=== PATIENT | male | born 1955 | race Caucasian/White ===

== ENCOUNTER 2018-03-02 13:43 | Outpatient (CLI) | payer MEDICARE, MEDICAID, SELFPAY ==
--- NOTE | 2018-03-02 14:06 | DI.RAD_ITS ---
SYMPTOMS/DIAGNOSIS: PEDAL EDEMA PA AND LATERAL CHEST: The cardiac size is at the upper limits of normal and unchanged from 10/21/15. The lungs are clear. No pleural effusion seen. CONCLUSION: No evidence of acute change.
[2018-03-02 14:47] LABS: BUN 19 mg/dL (7-18); CREATININE 0.95 mg/dL (0.70-1.30); Chloride 104 mmol/L (98-107); NT-proBNP 54 pg/mL; Potassium 4.1 mmol/L (3.5-5.1); Sodium 142 mmol/L (136-145)
[2018-03-02 14:49] LABS: HCO3 29 mmol/L (22-28); pCO2 44 mmHg (34-47); pH 7.42 (7.35-7.45); pO2 59 mmHg (83-108); sO2 92 % (94-98); tCO2 25 mmol/L (22-29)
[2018-03-02 14:51] LABS: FIO2 R/A %; Site Left Radial
== END 2018-03-02 14:03 ==
PROVIDERS: PCP General Practice; Visit Provider General Practice
DX: R60.0 Localized edema (principal); J44.9 Chronic obstructive pulmonary disease, unspecified; R06.02 Shortness of breath; I34.1 Nonrheumatic mitral (valve) prolapse; Z79.01 Long term (current) use of anticoagulants
CPT/HCPCS: 36415; 80051; 82805; 84520; 36600; 71046; 82565; 83880; 93005; 93010

== ENCOUNTER → 2018-06-19 09:35 | Outpatient (BNVA) | payer MEDICARE, MEDICAID, SELFPAY | PROVIDERS: PCP General Practice; Referring Provider General Practice; Visit Provider Surgery | DX: I77.1 Stricture of artery (principal); L97.319 Non-pressure chronic ulcer of right ankle with unspecified severity; J44.9 Chronic obstructive pulmonary disease, unspecified; F17.210 Nicotine dependence, cigarettes, uncomplicated; I10 Essential (primary) hypertension | CPT/HCPCS: 99213 ==

== ENCOUNTER 2018-06-26 01:53 | Outpatient (CLI) | payer MEDICARE, MEDICAID, SELFPAY ==
--- NOTE | 2018-06-26 09:20 | DI.CT_ITS ---
SYMPTOMS/DIAGNOSIS: SMOKER, PERIPHERAL ARTERY DISEASE, HYPERTENSION, I73.9, NONHEALING LEFT AND RIGHT FOOT WOUNDS CT ANGIOGRAPHY OF THE LOWER EXTREMITIES: There is mild atherosclerosis of the abdominal aorta, but no aneurysmal dilatation is seen. The celiac axis, superior mesenteric artery and inferior mesenteric arteries are unremarkable. No occlusion or significant stenosis is seen. The renal arteries are unremarkable without evidence of occlusion or significant stenosis. The common iliac arteries are unremarkable. No evidence of occlusion or significant stenosis. The left internal and external iliac arteries are unremarkable. No evidence of significant stenosis or occlusion. There is mild calcification in the right internal iliac artery, but no significant stenosis is seen. No stenosis is present. The right external iliac artery is unremarkable without evidence of occlusion or significant stenosis. The left femoral artery is unremarkable without evidence of occlusion or significant stenosis. There is mild calcium in the right femoral artery, but no significant stenosis or occlusion is present. The deep femoral arteries are unremarkable bilaterally. No evidence of occlusion or significant stenosis is present. The popliteal arteries are unremarkable bilaterally. No evidence of occlusion or significant stenosis is present. The right anterior tibial, peroneal and posterior tibial arteries are identified to the level of the ankle. The anterior tibial and tibialis posterior are seen into the foot. The peroneal artery is seen to the level of the ankle and not definitely further. This may be due to decreasing size or occlusion. On the left, the anterior tibial artery and the posterior tibial artery are visualized into the foot. The peroneal artery is visualized to the level of the ankle. This may be due to significant decreased size. Occlusion could not be excluded. There is patient motion artifact. The liver is grossly unremarkable, as is the pancreas. The patient is status post cholecystectomy. No biliary ductal dilatation is seen. Calcified granulomata are seen in the spleen. The adrenal glands are unremarkable. The kidneys show normal and symmetric enhancement. The urinary bladder appears intact. There is obscuration of portions of the pelvis due to the patient's bilateral total hip replacements. The bowel shows no evidence of obstruction. A normal appendix is present. The patient has bilateral total hip replacements. There is edema seen in the lateral aspect of the ankles adjacent to the lateral malleoli, left greater than right. IMPRESSION: 1. Minimal atherosclerosis as described above. 2. No significant stenosis or occlusion is identified. 3. Nonvisualization of the peroneal arteries distal to the ankle. This may be due to decreasing size versus occlusion.
[2018-06-26 10:13] LABS: BUN 22 mg/dL (7-18); CREATININE 1.04 mg/dL (0.70-1.30)
[2018-06-26] MEDS: Omnipaque 350 MG/ML 100 ML BTL IV (12:15)
[2018-06-26] MEDS: Omnipaque 350 MG/ML 50 ML BTL IV (12:16)
== END 2018-06-26 02:13 ==
PROVIDERS: Physical Therapy Assistant; PCP General Practice; Visit Provider Surgery
DX: I73.9 Peripheral vascular disease, unspecified (principal); I10 Essential (primary) hypertension; F17.200 Nicotine dependence, unspecified, uncomplicated; I70.0 Atherosclerosis of aorta
CPT/HCPCS: 36415; 75635; 84520; 82565; J3490; Q9967

== ENCOUNTER → 2018-07-03 09:36 | Outpatient (BNVA) | payer MEDICARE, MEDICAID, SELFPAY | PROVIDERS: PCP General Practice; Referring Provider General Practice; Visit Provider Surgery | DX: I73.9 Peripheral vascular disease, unspecified (principal); L97.319 Non-pressure chronic ulcer of right ankle with unspecified severity; I77.1 Stricture of artery; F17.210 Nicotine dependence, cigarettes, uncomplicated | CPT/HCPCS: 11042; 99212; 99213 ==

== ENCOUNTER → 2018-07-24 09:30 | Outpatient (BNVA) | payer MEDICARE, MEDICAID, SELFPAY | PROVIDERS: PCP General Practice; Referring Provider General Practice; Visit Provider Surgery | DX: I70.25 Atherosclerosis of native arteries of other extremities with ulceration (principal); F17.210 Nicotine dependence, cigarettes, uncomplicated; I87.2 Venous insufficiency (chronic) (peripheral); I73.9 Peripheral vascular disease, unspecified; L97.518 Non-pressure chronic ulcer of other part of right foot with other specified severity; J44.9 Chronic obstructive pulmonary disease, unspecified | CPT/HCPCS: 29580; 99212; 99214; L3260 ==

== ENCOUNTER → 2018-07-31 12:48 | Outpatient (BNVA) | payer MEDICARE, MEDICAID, SELFPAY | PROVIDERS: PCP General Practice; Referring Provider General Practice; Visit Provider Surgery | DX: L97.509 Non-pressure chronic ulcer of other part of unspecified foot with unspecified severity (principal); I70.25 Atherosclerosis of native arteries of other extremities with ulceration; I87.2 Venous insufficiency (chronic) (peripheral); F17.210 Nicotine dependence, cigarettes, uncomplicated | CPT/HCPCS: 11042; 99212 ==

== ENCOUNTER → 2018-08-07 13:28 | Outpatient (BNVA) | payer MEDICARE, MEDICAID, SELFPAY | PROVIDERS: PCP General Practice; Referring Provider General Practice; Visit Provider Physical Therapy Assistant | DX: Z51.89 Encounter for other specified aftercare; Z48.00 Encounter for change or removal of nonsurgical wound dressing | CPT/HCPCS: NC OV ==

== ENCOUNTER → 2018-08-14 11:01 | Outpatient (BNVA) | payer MEDICARE, MEDICAID, SELFPAY | PROVIDERS: PCP General Practice; Referring Provider General Practice; Visit Provider Surgery | DX: Z48.00 Encounter for change or removal of nonsurgical wound dressing (principal); L97.519 Non-pressure chronic ulcer of other part of right foot with unspecified severity; J44.9 Chronic obstructive pulmonary disease, unspecified; F17.210 Nicotine dependence, cigarettes, uncomplicated | CPT/HCPCS: 29580; 99212 ==

== ENCOUNTER → 2018-08-21 13:28 | Outpatient (BNVA) | payer MEDICARE, MEDICAID, SELFPAY | PROVIDERS: PCP General Practice; Referring Provider General Practice; Visit Provider Surgery | DX: Z48.00 Encounter for change or removal of nonsurgical wound dressing (principal); I87.2 Venous insufficiency (chronic) (peripheral); I70.25 Atherosclerosis of native arteries of other extremities with ulceration; L97.518 Non-pressure chronic ulcer of other part of right foot with other specified severity; F17.210 Nicotine dependence, cigarettes, uncomplicated | CPT/HCPCS: 29580; 99212; 99213 ==

== ENCOUNTER → 2018-08-28 09:11 | Outpatient (BNVA) | payer MEDICARE, MEDICAID, SELFPAY | PROVIDERS: PCP General Practice; Referring Provider General Practice; Visit Provider Surgery | DX: I87.2 Venous insufficiency (chronic) (peripheral) (principal); F17.210 Nicotine dependence, cigarettes, uncomplicated; I89.0 Lymphedema, not elsewhere classified; L97.211 Non-pressure chronic ulcer of right calf limited to breakdown of skin | CPT/HCPCS: 99212; 99214 ==

== ENCOUNTER → 2018-08-31 08:56 | Outpatient (BNVA) | payer MEDICARE, MEDICAID, SELFPAY | PROVIDERS: PCP General Practice; Referring Provider General Practice; Visit Provider Surgery | DX: R69 Illness, unspecified (principal) ==

== ENCOUNTER 2018-08-31 10:18 | Outpatient (CLI) | payer MEDICARE, MEDICAID, SELFPAY ==
--- NOTE | 2018-08-31 10:00 | DI.US_ITS ---
SYMPTOMS/DIAGNOSIS: RLE SWELLING AND PAIN, M79.604, M79.89 DUPLEX VENOUS ULTRASOUND RIGHT LOWER EXTREMITY: Duplex evaluation of the deep venous system was performed according to the usual protocol. The deep veins are freely compressible throughout to the level of the popliteal veins. There is normal doppler flow visible throughout and there is excellent flow augmentation with manual calf compression. CONCLUSION: No evidence of deep venous thrombosis.
[2018-08-31 11:04] LABS: Abs Immature Grans 0.01 k/cumm (0.0-0.09); Absolute Basophil Count 0.01 k/cumm (0.0-0.2); Absolute Eosinophil Count 0.11 k/cumm (0.0-0.7); Absolute Lymphocyte Count 1.83 k/cumm (1.2-3.4); Absolute Monocyte Count 0.62 k/cumm (0.11-0.7); Absolute Neutrophil Count 3.67 k/cumm (1.2-6.7); Basophils % 0.2; Eosinophils % 1.8; HCT 48.9 % (40.0-50.0); HGB 16.3 g/dL (13.5-17.5); Immature Grans % 0.2; Lymphocytes % 29.3; Mean Corp. HGB Concentration 33.3 g/dL (32.0-36.0); Mean Corpuscular Hemoglobin 33.2 pg (27.0-33.0); Mean Corpuscular Volume 99.6 fL (80-95); Mean Platelet Volume 10.8 fL (8.0-11.0); Monocytes % 9.9; Neutrophils % 58.6; Platelet Count 127 x1000/uL (130-400); RBC 4.91 m/cumm (4.50-6.00); RBC Distribution Width 13.8 % (11.8-14.1); White Blood Cell Count 6.25 k/cumm (4.4-10.8)
[2018-08-31 11:34] LABS: D-Dimer 677 ng/mlFEU (<500)
[2018-08-31 11:40] LABS: Anion Gap 8.5 mmol/L (3-11); BUN 21 mg/dL (7-18); CO2 30.5 mmol/L (21.0-32.0); CREATININE 1.07 mg/dL (0.70-1.30); Calcium 9.5 mg/dL (8.5-10.1); Chloride 103 mmol/L (98-107); Glucose 85 mg/dL (70-100); Potassium 4.2 mmol/L (3.5-5.1); Sodium 142 mmol/L (136-145)
[2018-08-31 12:00] LABS: NT-proBNP 53 pg/mL
== END 2018-08-31 10:38 ==
PROVIDERS: PCP General Practice; Visit Provider Surgery
DX: M79.604 Pain in right leg (principal); M79.89 Other specified soft tissue disorders; R22.41 Localized swelling, mass and lump, right lower limb; R06.02 Shortness of breath; L97.511 Non-pressure chronic ulcer of other part of right foot limited to breakdown of skin; Z79.01 Long term (current) use of anticoagulants; J44.9 Chronic obstructive pulmonary disease, unspecified; F17.210 Nicotine dependence, cigarettes, uncomplicated
CPT/HCPCS: 36415; 80048; 99213; 83880; 85025; 85379; 93971

== ENCOUNTER → 2018-09-04 08:57 | Outpatient (BNVA) | payer MEDICARE, MEDICAID, SELFPAY ==
[2018-09-05 07:01] LABS: Abs Immature Grans 0.01 k/cumm (0.0-0.09); Absolute Basophil Count 0.02 k/cumm (0.0-0.2); Absolute Eosinophil Count 0.12 k/cumm (0.0-0.7); Absolute Lymphocyte Count 1.79 k/cumm (1.2-3.4); Absolute Monocyte Count 0.56 k/cumm (0.11-0.7); Absolute Neutrophil Count 3.49 k/cumm (1.2-6.7); Basophils % 0.3; HCT 46.4 % (40.0-50.0); HGB 15.7 g/dL (13.5-17.5); Immature Grans % 0.2; Lymphocytes % 29.9; Mean Corp. HGB Concentration 33.8 g/dL (32.0-36.0); Mean Corpuscular Hemoglobin 33.4 pg (27.0-33.0); Mean Corpuscular Volume 98.7 fL (80-95); Mean Platelet Volume 11.4 fL (8.0-11.0); Monocytes % 9.3; Neutrophils % 58.3; Platelet Count 126 x1000/uL (130-400); RBC Distribution Width 13.7 % (11.8-14.1); White Blood Cell Count 5.99 k/cumm (4.4-10.8)
[2018-09-05 07:29] LABS: ALT 25 U/L (12-78); AST 17 U/L (15-37); Albumin 3.4 g/dL (3.4-5.0); Alkaline Phosphatase 81 U/L (46-116); Anion Gap 8.7 mmol/L (3-11); BUN 16 mg/dL (7-18); Bilirubin, Total 0.5 mg/dL (0.2-1.0); CO2 29.3 mmol/L (21.0-32.0); CREATININE 0.92 mg/dL (0.70-1.30); Calcium 9.1 mg/dL (8.5-10.1); Chloride 102 mmol/L (98-107); Glucose 94 mg/dL (70-100); NT-proBNP 70 pg/mL; Potassium 3.5 mmol/L (3.5-5.1); Sodium 140 mmol/L (136-145); Total Protein 6.9 g/dL (6.4-8.2)
== END ==
PROVIDERS: PCP General Practice; Referring Provider General Practice; Visit Provider Surgery
DX: M79.604 Pain in right leg (principal); M79.89 Other specified soft tissue disorders; R06.02 Shortness of breath
CPT/HCPCS: NC OV

== ENCOUNTER 2018-09-04 10:57 | Inpatient (IN) | payer MEDICARE, MEDICAID, SELFPAY ==
[2018-09-04 10:57] VITALS: BP 138/76; PULSE 65; RESP 20; TEMP 36.9; O2SAT 93
[2018-09-04] MEDS: Normal Saline Flush 10 ML SYR IVP ×2 (11:17→17:59)
[2018-09-04] MEDS: Normal Saline 1,000 ML 30 ML IV (11:18)
[2018-09-04] MEDS: Pantoprazole 40 MG TABCR PO (11:53)
[2018-09-04] MEDS: Enoxaparin 40 MG/0.4 ML SYR SC (11:54)
--- NOTE | 2018-09-04 13:14 | W.PM.HP.N ---
Date of service: 09/04/18 Time of Service: 13:14 Assessment and Plan (1) Cellulitis of right lower extremity without foot: Current visit: No Status: Acute This has been present since August 29 and not resolving. Initially thought this was do to some rebound swelling from having the unna boot removed on 08/28 (after having in place for 3 wks) The ulcer has healing nicely and this does nto appear to be involved. Pt has long standing venous stasis/venous insuff/lymphedema and arterial Dx of the foot/leg. Will admit pt for IV abx. He had US last which did not show any DVT. Will check flate plate for air CXR for CHF/echo for valular heart dx Mostly likely gram+ and will start on rocephin. lovenox lactulose History of Present Illness Chief Complaint: pt is here today for f/u of RLE swelling. Leg is more red and tender today Narrative: pt is here today for F/u of RLE swelling and edema. Leg is more red and tender today . He also feels SOB. no CP. at this this point I think this is more than his chronic swelling and redness and has crossed into infection and is not just lymphedema and stasis dermatitis. no fever. no n/v. no diarrhea. Will admit for IV abx. and IV lasix US was neg on 09/01. labs will be redrawn. Review of Systems Review of Systems All systems reviewed & are unremarkable except as noted in HPI and below Constitutional Comments: no fever or chills. no n/v. no diarrhea no recent abx Eyes Comments: no redness or drainage or pain. + glasses ENT Denies dysphagia Comments: dental repairs Cardiovascular Comments: hx of valular heart dx. no formal dg of chf. He is on lasix and elquis. Respiratory Comments: feels sob today no chest pain Gastrointestinal Denies abdominal pain, Denies cramping, Denies dysphagia, Denies dyspepsia, Denies heartburn, Denies diarrhea and Denies vomiting Musculoskeletal Comments: RLE more red today. 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) Anxiety (Chronic) Hearing loss (Chronic) On anticoagulant therapy (Chronic) Tobacco use disorder (Chronic) 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) BPH (benign prostatic hyperplasia) COPD (chronic obstructive pulmonary disease) Crohns disease DJD (degenerative joint disease) DVT (deep venous thrombosis) Depression Gastroesophageal reflux disease Hypercholesterolemia Osteoarthritis Surgical History Cholecystectomy (11/01/17) Colonoscopy - MAC EGD - MAC Extraction of cataract Repair of inguinal hernia Repair of umbilical hernia Tonsillectomy and adenoidectomy Total replacement of hip Social History Smoking/Tobacco Use Status: Current every day Drug use: Never Do you feel safe in your relationship?: Yes Meds Home Medications Medication Instructions Recorded Confirmed Type Eliquis 2.5 mg PO BID 02/03/16 09/04/18 History furosemide [Lasix] 40 mg PO BID 03/30/16 09/04/18 History albuterol sulfate [ProAir HFA] 2 puff INHALATION PRN PRN 10/26/17 09/04/18 History finasteride 5 mg tablet 5 mg PO HS #90 tab-cap 07/25/18 09/04/18 Rx acetaminophen 500 mg tablet 500 mg PO Q6H PRN 07/31/18 09/04/18 History tramadol 50 mg tablet 50 mg PO Q6H PRN #30 tab 07/31/18 09/04/18 Rx Allergies Allergy/AdvReac Type Severity Reaction Status Date / Time Sulfa (Sulfonamide AdvReac Intermediate Itching Verified 09/04/18 09:06 Antibiotics) Exam GI Palpation: soft Other: n o pain Skin Other: LE is red/hot /swollen/painful His pulses are never palpable. no new open sores. some serous drainage Neuro General: alert, awake, oriented x3, moves all extremities and CN's II-XI intact bilaterally Motor: muscle tone normal throughout Other: has chronic joint pain so gait is uneven at baseline Extrem General: full ROM and edema Other: red increase in calf circumference swollen weeping Results Labs : 09/04/18 13:40 09/04/18 13:40 Last Vital Signs Temp 36.9 C 09/04/18 11:23 Pulse 65 09/04/18 11:23 Resp 20 09/04/18 11:23 BP 138/76 09/04/18 11:23 Pulse Ox 93 L 09/04/18 11:23
[2018-09-04] MEDS: cefTRIAXone 2 GM/50 ML BAG IVPB (13:47)
[2018-09-04 13:52] LABS: Abs Immature Grans 0.01 k/cumm (0.0-0.09); Absolute Basophil Count 0.02 k/cumm (0.0-0.2); Absolute Eosinophil Count 0.12 k/cumm (0.0-0.7); Absolute Lymphocyte Count 1.97 k/cumm (1.2-3.4); Absolute Monocyte Count 0.58 k/cumm (0.11-0.7); Absolute Neutrophil Count 3.99 k/cumm (1.2-6.7); Basophils % 0.3; Eosinophils % 1.8; HCT 45.7 % (40.0-50.0); HGB 15.6 g/dL (13.5-17.5); Immature Grans % 0.1; Lymphocytes % 29.4; Mean Corp. HGB Concentration 34.1 g/dL (32.0-36.0); Mean Corpuscular Volume 99.6 fL (80-95); Mean Platelet Volume 11.2 fL (8.0-11.0); Monocytes % 8.7; Neutrophils % 59.7; Platelet Count 122 x1000/uL (130-400); RBC 4.59 m/cumm (4.50-6.00); RBC Distribution Width 13.7 % (11.8-14.1); White Blood Cell Count 6.69 k/cumm (4.4-10.8)
[2018-09-04 14:19] LABS: ALT 28 U/L (12-78); AST 19 U/L (15-37); Albumin 3.4 g/dL (3.4-5.0); Alkaline Phosphatase 83 U/L (46-116); Anion Gap 6.9 mmol/L (3-11); BUN 16 mg/dL (7-18); Bilirubin, Total 0.4 mg/dL (0.2-1.0); CO2 30.1 mmol/L (21.0-32.0); CREATININE 1.09 mg/dL (0.70-1.30); Calcium 9.4 mg/dL (8.5-10.1); Chloride 103 mmol/L (98-107); Glucose 106 mg/dL (70-100); Magnesium 1.8 mg/dL (1.8-2.4); NT-proBNP 74 pg/mL; Potassium 3.8 mmol/L (3.5-5.1); Sodium 140 mmol/L (136-145); Total Protein 6.9 g/dL (6.4-8.2)
[2018-09-04 14:25] LABS: C-Reactive Protein 0.75 mg/dL (0.0-0.3)
[2018-09-04 14:34] LABS: ESR 8 MM/HR (1-20)
[2018-09-04] MEDS: Furosemide 20 MG TAB 40 MG PO (15:44)
[2018-09-04 16:07] VITALS: BP 110/66; PULSE 63; RESP 18; TEMP 37.1; O2SAT 92
--- NOTE | 2018-09-04 16:58 | DI.RAD_ITS ---
SYMPTOM/DIAGNOSIS: SOB, CELLULITIS PA AND LATERAL CHEST; The lungs are free of infiltrate. There is no pleural effusion. The cardiovascular structures are intact. 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 IMPRESSION: No evidence of acute cardiopulmonary disease. RIGHT FEMUR: The patient is status post ELAINE. The prosthesis is in good position. Surrounding bone intact. Note is made of mild degenerative changes involving the knee. There is no localized bony or soft tissue abnormality.
--- NOTE | 2018-09-04 17:06 | NUR.NOTE ---
1645: BILATERAL CALF MEASUREMENTS OBTAINED AFTER ORDER ENTERED BY . TEDS HAD ALREADY BEEN ON FOR ABOUT AN HOUR WHEN MEASUREMENTS WERE OBTAINED. RIGHT CALF: 41.5 CM LEFT CALF: 40 CM Nursing Note:
--- NOTE | 2018-09-04 17:29 | DI.VRAD_ITS ---
EXAM: XR Chest, 2 Views EXAM DATE/TIME: 09/04/2018 5:03 PM CLINICAL HISTORY: 63 years old, male; Signs and symptoms; Shortness of breath TECHNIQUE: Imaging protocol: XR of the chest, 2 views. COMPARISON: CR XR CHEST 2V PA LATERAL 03/02/2018 2:06 PM FINDINGS: Lungs: Mild opacity in the bases may represent atelectasis or pneumonia. Pleural space: Unremarkable. No pleural effusion. No pneumothorax. Heart/Mediastinum: Stable cardiac silhouette Bones/joints: Stable scoliosis IMPRESSION: Mild opacity in the bases may represent atelectasis or pneumonia. Dictated and Authenticated by: Petra Whitehead MD. Ordering:DEVIN Louis MD
--- NOTE | 2018-09-04 17:39 | DI.VRAD_ITS ---
EXAM: XR Right Femur, 4 views EXAM DATE/TIME: 09/04/2018 4:41 PM CLINICAL HISTORY: 63 years old, male; Condition or disease; Other: Cellulitis TECHNIQUE: Imaging protocol: XR Right femur, 4 views COMPARISON: No relevant prior studies available. FINDINGS: Bones/joints: Right total hip replacement. No fracture. There is no evidence of malalignment or dislocation. Soft tissues: Normal. IMPRESSION: 1. Right total hip replacement. 2. No fracture. There is no evidence of malalignment or dislocation. Dictated and Authenticated by: Petra Whitehead MD. Ordering:DEVIN Louis MD
[2018-09-04] MEDS: Furosemide 40 MG/4 ML VIAL IVP (17:59)
[2018-09-04] MEDS: Lactobacillus Acidophilus CAP 1 CAP PO (19:56)
[2018-09-04] MEDS: Finasteride 5 MG TAB PO (22:13)
[2018-09-04 23:28] VITALS: BP 127/77; PULSE 68; RESP 20; TEMP 36.6; O2SAT 92
[2018-09-05 07:26] VITALS: BP 124/76; PULSE 61; RESP 18; TEMP 37; O2SAT 91
[2018-09-05] MEDS: Lactobacillus Acidophilus CAP 1 CAP PO ×3 (07:40→19:37)
[2018-09-05] MEDS: Furosemide 20 MG TAB 40 MG PO ×2 (07:40→16:45)
--- NOTE | 2018-09-05 09:05 | MERGE_ITS ---
*[facility]* *[facility]* [address] [place] [address] Date of study: 09/05/2018 Transthoracic Echocardiography M-mode, complete 2D, complete spectral Doppler, and color Doppler *STUDY CONCLUSIONS* Summary: 1. Left ventricle: The cavity size was normal. Systolic function was normal. The estimated ejection fraction was 55-60%. Findings consistent with diastolic dysfunction. There was no evidence of elevated ventricular filling pressure by Doppler parameters. 2. Mitral valve: There was moderate regurgitation. 3. Left atrium: The atrium was mildly dilated. 4. Right ventricle: The cavity size was mildly dilated. Systolic function was normal. 5. Right atrium: The atrium was mildly dilated. 6. Atrial septum: No defect or patent foramen ovale was identified. 7. Tricuspid valve: There was moderate regurgitation. 8. Pulmonary arteries: Pulmonary systolic pressure was >= 45mm Hg. 9. Inferior vena cava: Poorly visualized. *PATIENT PRESENTATION* Height: 167.6cm ((66in) ) S/D Pressure: 127 / 77 Weight: 94.3kg ((207.6lb) ) BSA: 2.13m^2 Test start time: 09:10 AM. Test stop time: 10:10 AM. CONSULTING Juancho Bacon PERFORMING Unknown PERFORMING [facility] IN HOUSE COUNSEL RT Francoise (R)(CT), [facility] ORDERING Missy Wallis REFERRING Missy Wallis *PROCEDURE DATA* Procedure information: The patient was identified by two identifiers. This study was interpreted by [facility]. Pertinent images and digital data are archived for permanent storage and are available for subsequent review. No prior study was available for comparison. Study status: Routine. Transthoracic echocardiography. M-mode, complete 2D, complete spectral Doppler, and color Doppler. A Transthoracic Echocardiogram was performed. Scanning was performed from the parasternal, apical, subcostal, and suprasternal notch acoustic windows. Images were obtained using an [id number] cardiac ultrasound machine. Image quality was adequate. Study completion: The patient tolerated the procedure well. History: PMH: Sob/hx of valvular heart disease, lower extremity edema. *CARDIAC ANATOMY* Left ventricle: The cavity size was normal. Systolic function was normal. The estimated ejection fraction was 55-60%. The tissue Doppler parameters were abnormal. Findings consistent with diastolic dysfunction. There was no evidence of elevated ventricular filling pressure by Doppler parameters. Aortic valve: [place]. Doppler: There was no stenosis. There was no regurgitation. VTI ratio of LVOT to aortic valve: 0.81. Valve area (VTI): 3.4cm^2. Indexed valve area (VTI): 1.6cm^2/m^2. Peak velocity ratio of LVOT to aortic valve: 0.72. Valve area (Vmax): 3cm^2. Indexed valve area (Vmax): 1.4cm^2/m^2. Mean velocity ratio of LVOT to aortic valve: 0.61. Valve area (Vmean): 2.5cm^2. Indexed valve area (Vmean): 1.2cm^2/m^2. Mean gradient (S): 6.3mm Hg. Peak gradient (S): 10.7mm Hg. Aorta: Aortic root: The aortic root was normal in size. Ascending aorta: The ascending aorta was normal in size. Mitral valve: Doppler: There was no evidence for stenosis. There was moderate regurgitation. Valve area by pressure half-time: 3.5cm^2. Indexed valve area by pressure half-time: 1.7cm^2/m^2. Left atrium: The atrium was mildly dilated. Atrial septum: No defect or patent foramen ovale was identified. Right ventricle: The cavity size was mildly dilated. Systolic function was normal. Pulmonic valve: Doppler: There was no evidence for stenosis. There was mild to moderate regurgitation. Peak gradient (S): 8.7mm Hg. Tricuspid valve: Doppler: There was moderate regurgitation. Pulmonary artery: Poorly visualized. Pulmonary systolic pressure was >= 45mm Hg. Right atrium: The atrium was mildly dilated. Pericardium: There was no pericardial effusion. Systemic veins: Inferior vena cava: Poorly visualized. Measurements Left ventricle Value Reference LV ID, ED, PLAX 5.5 cm 3.5 - 6.0 LV ID, ES, PLAX (H) 4.1 cm 2.1 - 4.0 LV PW thickness, ED, PLAX 1.1 cm LV end-diastolic volume, 1-p A2C 95 ml LV ejection fraction, 1-p A2C 49 % LV end-diastolic volume, 1-p A4C 115 ml LV ejection fraction, 1-p A4C 58 % LV e', lateral 0.06 m/sec LV E/e', lateral 7 LV e', medial 0.062 m/sec LV E/e', medial 7 LV e', average 0.061 m/sec LV E/e', average 7 Ventricular septum Value Reference IVS thickness, ED, PLAX 1.1 cm LVOT Value Reference LVOT ID, A-P 2.3 cm LVOT area 4.1 cm^2 LVOT peak velocity, S 1.18 m/sec LVOT mean velocity, S 0.73 m/sec LVOT VTI, S 25.9 cm LVOT peak gradient, S 5.6 mm Hg LVOT mean gradient, S 2.6 mm Hg Stroke volume (SV), LVOT DP 107 ml Stroke index (SV/bsa), LVOT DP 50 ml/m^2 Aortic valve Value Reference Aortic valve peak velocity, S 1.6 m/sec Aortic valve mean velocity, S 1.2 m/sec Aortic valve VTI, S 32.0 cm Aortic mean gradient, S 6.3 mm Hg Aortic peak gradient, S 10.7 mm Hg VTI ratio, LVOT/AV 0.81 Aortic valve area, VTI 3.4 cm^2 Velocity ratio, peak, LVOT/AV 0.72 Aortic valve area, peak velocity 3 cm^2 Velocity ratio, mean, LVOT/AV 0.61 Aortic valve area, mean velocity 2.5 cm^2 Aortic valve area/bsa, mean velocity 1.2 cm^2/m^2 Aorta Value Reference Aortic root ID, ED 3.4 cm Ascending aorta ID, A-P, S 3.2 cm Left atrium Value Reference LA ID, A-P, ES 4.4 cm LA ID/bsa, A-P 2.0 cm/m^2 <=2.2 LA area, ES, A4C (H) 27.3 cm^2 8.8 - 23.4 LA area, ES, A2C 22 cm^2 LA volume/bsa, ES, 1-p A4C 52 ml/m^2 LA volume, ES, 2-p 79 ml LA volume/bsa, ES, 2-p 37 ml/m^2 LA/aortic root ratio 1.29 Mitral valve Value Reference Mitral E-wave peak velocity 0.43 m/sec Mitral A-wave peak velocity 0.75 m/sec Mitral deceleration time 215 ms 150 - 230 Mitral pressure half-time 62 ms Mitral E/A ratio, peak 0.57 Mitral valve area, PHT, DP 3.5 cm^2 Tricuspid valve Value Reference Tricuspid regurg peak velocity 3.5 m/sec Tricuspid peak RV-RA gradient 47.7 mm Hg Right atrium Value Reference RA area, ES, A4C (H) 20.9 cm^2 8.3 - 19.5 Pulmonic valve Value Reference Pulmonic peak gradient, S 8.7 mm Hg Legend: (L) and (H) kaela values outside specified reference range. I have personally reviewed the images and have reviewed and edited the reported findings. Electronically signed by Velasquez Hugo MD 09/05/2018 14:07
[2018-09-05] MEDS: Enoxaparin 40 MG/0.4 ML SYR SC (11:16)
--- NOTE | 2018-09-05 13:15 | PGE_ITS ---
Date of Service Date of service: 09/05/18 Time of Service: 13:12 Assessment and Plan (1) Diastolic dysfunction: Current visit: Yes Status: Acute (2) Mitral regurgitation: Current visit: Yes Status: Chronic (3) Pulmonary HTN: Current visit: Yes Status: Acute (4) Cellulitis of right lower extremity without foot: Current visit: No Status: Acute cont abx results of ECHO noted. does not appear to be surgical- will resume eliquist- hx of DVT const abx and supportive care. Subjective Interval history since last seen: doing ok. redness still present swelling has gone down. no diarrhea. calf are 40cm- left. 41cm right. Right still seems very tender. defn swollen. no abscess. Would like to see redness and swelling go down more prior to d/c or change to oral abx. pt wants fo smoke. He has had DVT in past SOB is better. no thrush on tongue. does not appear to have any abscess or any lesions that require drainage. Will resume eliquis- pt has a hx of DVT. results of echo noted. Exam Const General: cooperative, healthy appearing, comfortable, no acute distress, well developed and well groomed Nutritional Appearance: average body habitus and well nourished Orientation: alert, awake and oriented x3 Other: no fever or chills. no diarrhea. no thrush. no productive cough. no dysuria. RLE still red and swollen and tender. slt better. no CP or SOB. [facility] Head: normal to inspection, normocephalic and atraumatic Ears: hearing grossly normal bilaterally and external ears normal General nose exam: external nose normal Face and sinus: normal facial exam and sinuses nontender Mouth: oral mucosae normal, lip normal, tongue normal and moist mucous membranes Teeth and gingiva: dentition normal Eyes General: appearance normal, both eyes and all related structures Conjunctivae: conjunctivae normal Sclera: sclerae normal Pupils: PERRL Neck Neck: normal visual inspection, full ROM and no JVD Chest Chest: normal inspection of the chest Resp Effort & Inspection: normal respiratory effort, able to speak in complete sentences, no cough, no nasal flaring, not tachypneic and no use of accessory muscles Auscultation: clear to auscultation bilaterally, no rales, no rhonchi and no w heezes Cardio Jugular venous pressure: no JVD Rate: regular rate Rhythm: regular rhythm GI Inspection: normal to inspection, no edema and non-distended Palpation: soft, no masses, nontender and No ascites Auscultation: normal bowel sounds Skin General skin exam: no rashes or lesions noted Trauma: no lacerations or abrasions Other: intact. Ulcer on R lateral malleolus is healed. no serous drainage today. still red/tender/swollen. He has chronic venous statsis and lymphedema at baseline. Pulses are not palpable at baseline. Neuro General: alert, oriented x3, oriented, gait normal, moves all extremities, no focal motor deficits and CN's II-XI intact bilaterally Cognition: normal cognition Speech: speech normal Gait: normal gait Motor: muscle tone normal throughout Extrem General: normal to inspection, full ROM, no clubbing, cyanosis or edema, edema and pedal edema Other: see above Psych Appearance: grossly normal and well kempt Mental Status: mental status grossly normal Speech and Movement: speech and movement normal Affect: normal affect Objective Objective Clinical Data: Abnormal lab results 09/04/18 09/04/18 09/04/18 Range/Units 13:40 13:40 13:40 MCV 99.6 H (80-95) fL MCH 34.0 H (27.0-33.0) pg Plt Count 122 L (130-400) x1000/uL MPV 11.2 H (8.0-11.0) fL Glucose 106 H (70-100) mg/dL C-Reactive Protein 0.75 H (0.0-0.3) mg/dL Vital Signs Temperature 37.0 C 09/05/18 07:26 Temperature Source Tympanic 09/05/18 07:26 Pulse 61 09/05/18 07:26 Pulse Rhythm Regular 09/05/18 03:46 Respiratory Rate 18 09/05/18 07:26 Respiratory Effort Non-Labored 09/05/18 03:46 Respiratory Depth Normal 09/05/18 03:46 Respiratory Pattern Normal 09/05/18 03:46 Blood Pressure 124/76 09/05/18 07:26 Pulse Oximetry 91 L 09/05/18 07:26 Oxygen Delivery Method Room Air 09/05/18 07:26 Oxygen Flow Rate 0 09/05/18 07:26 Pain Level 0 09/04/18 16:07 Intake & Output 09/04/18 09/05/18 09/05/18 23:59 11:59 23:59 Intake Total 371 / 371 360 / 360 Output Total 3200 / 3200 1000 / 1000 Balance -2829 / -2829 -640 / -640 Weight 93.8 kg Intake: IV 131 / 131 Oral 240 / 240 360 / 360 Output: Urine 3200 / 3200 1000 / 1000 Other: Urine Color Yellow Yellow Urine Appearance Clear Clear Urine Odor None Comment urinal emptied. Voiding Methods Toilet Urinal Laboratory Results WBC 6.69 k/cumm (4.4-10.8) 09/04/18 13:40 RBC 4.59 m/cumm (4.50-6.00) 09/04/18 13:40 Hgb 15.6 g/dL (13.5-17.5) 09/04/18 13:40 Hct 45.7 % (40.0-50.0) 09/04/18 13:40 MCV 99.6 fL (80-95) H 09/04/18 13:40 MCH 34.0 pg (27.0-33.0) H 09/04/18 13:40 MCHC 34.1 g/dL (32.0-36.0) 09/04/18 13:40 RDW 13.7 % (11.8-14.1) 09/04/18 13:40 Plt Count 122 x1000/uL (130-400) L 09/04/18 13:40 MPV 11.2 fL (8.0-11.0) H 09/04/18 13:40 Immature Gran % 0.1 09/04/18 13:40 Neutrophils % 59.7 09/04/18 13:40 Lymphocytes % 29.4 09/04/18 13:40 Monocytes % 8.7 09/04/18 13:40 Eosinophils % 1.8 09/04/18 13:40 Basophils % 0.3 09/04/18 13:40 Absolute Neutrophils 3.99 k/cumm (1.2-6.7) 09/04/18 13:40 Absolute Lymphocytes 1.97 k/cumm (1.2-3.4) 09/04/18 13:40 Absolute Monocytes 0.58 k/cumm (0.11-0.7) 09/04/18 13:40 Absolute Eosinophils 0.12 k/cumm (0.0-0.7) 09/04/18 13:40 Absolute Basophils 0.02 k/cumm (0.0-0.2) 09/04/18 13:40 ESR 8 MM/HR (1-20) 09/04/18 13:40 Sodium 140 mmol/L (136-145) 09/04/18 13:40 Potassium 3.8 mmol/L (3.5-5.1) 09/04/18 13:40 Chloride 103 mmol/L (98-107) 09/04/18 13:40 Carbon Dioxide 30.1 mmol/L (21.0-32.0) 09/04/18 13:40 Anion Gap 6.9 mmol/L (3-11) 09/04/18 13:40 BUN 16 mg/dL (7-18) 09/04/18 13:40 Creatinine 1.09 mg/dL (0.70-1.30) 09/04/18 13:40 Estimated GFR/1.73 m2 >= 60.00 (mL/min/1.73m2) 09/04/18 13:40 Glucose 106 mg/dL (70-100) H 09/04/18 13:40 Calcium 9.4 mg/dL (8.5-10.1) 09/04/18 13:40 Magnesium 1.8 mg/dL (1.8-2.4) 09/04/18 13:40 Total Bilirubin 0.4 mg/dL (0.2-1.0) 09/04/18 13:40 AST 19 U/L (15-37) 09/04/18 13:40 ALT 28 U/L (12-78) 09/04/18 13:40 Alkaline Phosphatase 83 U/L (46-116) 09/04/18 13:40 C-Reactive Protein 0.75 mg/dL (0.0-0.3) H 09/04/18 13:40 NT-Pro-B Natriuret Pep 74 pg/mL (-299) 09/04/18 13:40 Total Protein 6.9 g/dL (6.4-8.2) 09/04/18 13:40 Albumin 3.4 g/dL (3.4-5.0) 09/04/18 13:40
--- NOTE | 2018-09-05 14:39 | CHAPLAIN ---
Kody was sitting up in his chair watching tv when I visited. He told me that he is feeling ok, but was told to come in because his legs are swollen. He doesn't have any family members who will be visiting, he told me. Isra and I remember each other from when his , Brigitte, in the ICU a couple of years ago. At that time, the only other family member was Brigitte's daughter.
[2018-09-05] MEDS: cefTRIAXone 2 GM/50 ML BAG IVPB (14:55)
--- NOTE | 2018-09-05 15:22 | PHARADMIT ---
Admission Pharmacy Clinical Review cellulitis Code Status Full Code Current Weight 93.8 kg Renally Cleared and Narrow Therapeutic Index Meds Crcl ~86.9 mL/min using adjusted body weight current meds okay QTc Value / Action Taken n/a BP Control, Fever BP 124/76 Electrolytes reviewed within normal limits DVT Prophylaxis enoxaparin, apixaban restarts tonight and enoxaparin to discontinue after tomorrows dose Opiate Usage / Scheduled Bowel Regimen Ordered prn/no Plt/SCr for Heparin / Enoxaparin plt 122 SCr 1.09 INR for Warfarin n/a H/H stable, WBC/Bands h/h 15.6/45.7 wbc 6.69 Antibiotic appropriateness ceftriaxone Cultures and Sensitivities none Surgical ABX d/c within 24 hr n/a DM control / Insulin Dosing Bg 106 none Heart Failure (Check EF%) (CHAVEZ's, B-Block, Diuretics) furosemide IV to PO Switch n/a Home Meds 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
[2018-09-05 15:34] VITALS: BP 114/73; PULSE 60; RESP 18; TEMP 36.7; O2SAT 97
[2018-09-05 18:04] LABS: CRP, High Sensitivity 6.64 mg/L
[2018-09-05] MEDS: Apixaban 2.5 MG TAB PO (19:37)
--- NOTE | 2018-09-05 21:01 | PDOC.CMIN ---
- If Service Date Differs Date of service: 09/05/18 Time of Service: 21:02 Care Management Initial Assess REASON FOR HOSPITALIZATION:: Cellulitis PAST MEDICAL HISTORY/PAST SURGICAL HISTORY:: Deep vein thrombosis x2, Osteoarthritis, Hematuria, Tobacco abuse, COPD, Mitral valve prolapse, Chronic low back pain, Depression, Crohn's disease, (L) total hip arthroplasty, (R) total hip arthroplasty, Cystoscopy, Cataract surgery, Tonsillectomy, Adenoidectomy, Umbilical hernia repair, Bilateral inguinal hernia repairs PREVIOUS FUNCTIONAL STATUS/SOCIAL/FAMILY SUPPORTS:: Isra lives in his own apartment in [place], [place]. He is diabled, he lost his spouse about 4 years ago.He does have a sister that lives out of the area. [facility], where they provide care to his legs for chronic lymphadema in both le?s. He uses [facility] for transportation. CURRENT FUNCTIONAL STATUS:: Isra is alert, he ask when he is able to go home. Isra is ambulating in the rooms and quiñones often. He is receiving IV antibiotics. CM did review with surgical provider nikki to be determine, he may need extended antibiotics pending cultures. ADVANCE DIRECTIVES:: On file. Has patient been provided with information about the portal?: Yes Did the patient sign up for the portal?: No (already enrolled) CODE STATUS:: Full Code INSURANCE COVERAGE / FINANCIAL ISSUES:: Medicare and Medicaid CURRENT HOME/COMMUNITY SERVICES/EQUIPMENT:: Adult day services PRIMARY CARE PHYSICIAN:: POTENTIAL DISCHARGE NEEDS:: Isra may need extended IV antibiotics depending frequency would determine inpatient vs outpatient. Follow up with surgical provider as well as PCP. PATIENT/FAMILY EDUCATION NEEDS:: Discharge education, limitations, follow plan of care, ask me three and self management. ANTICIPATED BARRIERS TO DISCHARGE:: None TRANSPORTATION:: Via [facility] PLAN:: Isra remains inpatient for right lower leg cellulitis. He is scheduled to [facility]. Cultures are pending. Discharge disposition to be determined. CM continue to follow discharge planning and needs assessment.
[2018-09-05] MEDS: Normal Saline 1,000 ML 30 ML IV (21:04)
[2018-09-05] MEDS: Finasteride 5 MG TAB PO (22:13)
[2018-09-06 07:15] VITALS: BP 110/71; PULSE 58; RESP 18; TEMP 36.6; O2SAT 96
[2018-09-06 07:53] LABS: C-Reactive Protein 0.59 mg/dL (0.0-0.3)
--- NOTE | 2018-09-06 08:25 | PDOC.CMPRO ---
- If Service Date Differs Date of service: 09/06/18 Time of Service: 08:25 Care Management Progress Note S/O: A:Isra is a 63 year old man admitted to [facility] on 09/04/18 with a diagnosis of cellulitis. P:Isra remains inpatient for right lower leg cellulitis. He is scheduled to have an echo. Cultures are pending. Discharge disposition to be determined. CM continue to follow discharge planning and needs assessment.
--- NOTE | 2018-09-06 08:28 | CMPROGNOTE_ITS ---
- If Service Date Differs Date of service: 09/06/18 Time of Service: 08:25 Care Management Progress Note S/O: A:Isra is a 63 year old man admitted to [facility] on 09/04/18 with a diagnosis of cellulitis. P:Isra remains inpatient for right lower leg cellulitis. He is scheduled to have an echo. Cultures are pending. Discharge disposition to be determined. CM continue to follow discharge planning and needs assessment.
[2018-09-06] MEDS: Furosemide 20 MG TAB 40 MG PO (09:15)
[2018-09-06] MEDS: Lactobacillus Acidophilus CAP 1 CAP PO (09:15)
[2018-09-06] MEDS: Apixaban 2.5 MG TAB PO (09:15)
--- NOTE | 2018-09-06 11:00 | W.PM.PROGNOT ---
Date of Service Date of service: 09/06/18 Time of Service: 11:00 Assessment and Plan (1) Pulmonary HTN: Current visit: Yes Status: Acute (2) Diastolic dysfunction: Current visit: Yes Status: Acute (3) Cellulitis of right lower extremity without foot: Current visit: No Status: Acute much improved today plan d/c home today Rx Augmentin and probiotics pt NEEDS to get support/compression stockings that he can wear daily. He cannot bend over (due to OA in his hip) to get traditional compression stockings on. velcro/zippers would be very beneficial. He has had x2 ulcers that are definitely related to the fluid build up in his legs. also increasing lasix to BID pt is not on pot supp. K has been nl in hosp. will see in clinic on tuesday and check K and labs home PT would be very beneficial for his hip and to increase mobility flexibility. He is very stiff and has chronic pain. poor mobility/flexibility lead to inability to do ADL's adn take care of himself on a basic level. 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 swelling is signif less. redness has gone down. no drainage. pt also has been up walking around. no diarrhea. no productive cough pt has arterial insuff/venous stasis and insuff and chronic lymphedema. He has had x2 ulcers w/ in the past 2 yrs. again this are a combination of arterial/venous dx and chronic LE edema/lymphedema. Exam Const General: cooperative and comfortable Orientation: alert, awake, oriented x3 and oriented to person Chest Chest: normal inspection of the chest Cardio Rate: regular rate Rhythm: regular rhythm Other: soft non tender no diarrhea. tolerating po's Skin Other: swelling and redness are signif improved. he is back to his baseline redness.cyanosis. LE at baseline are thickened and woody. there is no drainage today (on Tuesday he had spontaneous generalized serous leakage). Extrem Other: see under skin pulses are not palpable at baseline 2 vessel flow to b/l feet Objective Objective Clinical Data: Abnormal lab results 09/06/18 Range/Units 07:13 C-Reactive Protein 0.59 H (0.0-0.3) mg/dL Vital Signs Temperature 36.6 C 09/06/18 07:15 Temperature Source Tympanic 09/06/18 07:15 Pulse 58 L 09/06/18 07:15 Pulse Rhythm Regular 09/06/18 08:15 Respiratory Rate 18 09/06/18 07:15 Respiratory Effort 09/06/18 08:15 Respiratory Depth Normal 09/06/18 08:15 Respiratory Pattern Normal 09/06/18 08:15 Blood Pressure 110/71 09/06/18 07:15 Pulse Oximetry 96 09/06/18 07:15 Oxygen Delivery Method Room Air 09/06/18 07:15 Oxygen Flow Rate 0 09/06/18 07:15 Pain Level 0 09/06/18 07:15 Intake & Output 09/05/18 09/05/18 09/06/18 11:59 23:59 11:59 Intake Total 910 / 3439 2529 / 3439 660 / 660 Output Total 1000 / 2925 1925 / 2925 1545 / 1545 Balance -90 / 514 604 / 514 -885 / -885 Weight 93.8 kg 90.1 kg Intake: IV 969 / 969 Oral 910 / 2470 1560 / 2470 660 / 660 Output: Urine 1000 / 2925 1925 / 2925 1545 / 1545 Other: Urine Color Yellow Yellow Yellow Urine Appearance Clear Clear Clear Urine Odor None None Normal Voiding Methods Urinal Urinal Toilet Laboratory Results WBC 6.69 k/cumm (4.4-10.8) 09/04/18 13:40 RBC 4.59 m/cumm (4.50-6.00) 09/04/18 13:40 Hgb 15.6 g/dL (13.5-17.5) 09/04/18 13:40 Hct 45.7 % (40.0-50.0) 09/04/18 13:40 MCV 99.6 fL (80-95) H 09/04/18 13:40 MCH 34.0 pg (27.0-33.0) H 09/04/18 13:40 MCHC 34.1 g/dL (32.0-36.0) 09/04/18 13:40 RDW 13.7 % (11.8-14.1) 09/04/18 13:40 Plt Count 122 x1000/uL (130-400) L 09/04/18 13:40 MPV 11.2 fL (8.0-11.0) H 09/04/18 13:40 Immature Gran % 0.1 09/04/18 13:40 Neutrophils % 59.7 09/04/18 13:40 Lymphocytes % 29.4 09/04/18 13:40 Monocytes % 8.7 09/04/18 13:40 Eosinophils % 1.8 09/04/18 13:40 Basophils % 0.3 09/04/18 13:40 Absolute Neutrophils 3.99 k/cumm (1.2-6.7) 09/04/18 13:40 Absolute Lymphocytes 1.97 k/cumm (1.2-3.4) 09/04/18 13:40 Absolute Monocytes 0.58 k/cumm (0.11-0.7) 09/04/18 13:40 Absolute Eosinophils 0.12 k/cumm (0.0-0.7) 09/04/18 13:40 Absolute Basophils 0.02 k/cumm (0.0-0.2) 09/04/18 13:40 ESR 8 MM/HR (1-20) 09/04/18 13:40 Sodium 140 mmol/L (136-145) 09/04/18 13:40 Potassium 3.8 mmol/L (3.5-5.1) 09/04/18 13:40 Chloride 103 mmol/L (98-107) 09/04/18 13:40 Carbon Dioxide 30.1 mmol/L (21.0-32.0) 09/04/18 13:40 Anion Gap 6.9 mmol/L (3-11) 09/04/18 13:40 BUN 16 mg/dL (7-18) 09/04/18 13:40 Creatinine 1.09 mg/dL (0.70-1.30) 09/04/18 13:40 Estimated GFR/1.73 m2 >= 60.00 (mL/min/1.73m2) 09/04/18 13:40 Glucose 106 mg/dL (70-100) H 09/04/18 13:40 Calcium 9.4 mg/dL (8.5-10.1) 09/04/18 13:40 Magnesium 1.8 mg/dL (1.8-2.4) 09/04/18 13:40 Total Bilirubin 0.4 mg/dL (0.2-1.0) 09/04/18 13:40 AST 19 U/L (15-37) 09/04/18 13:40 ALT 28 U/L (12-78) 09/04/18 13:40 Alkaline Phosphatase 83 U/L (46-116) 09/04/18 13:40 C-Reactive Protein 0.59 mg/dL (0.0-0.3) H 09/06/18 07:13 C-React Prot High Sens 6.64 mg/L 09/05/18 06:28 NT-Pro-B Natriuret Pep 74 pg/mL (-299) 09/04/18 13:40 Total Protein 6.9 g/dL (6.4-8.2) 09/04/18 13:40 Albumin 3.4 g/dL (3.4-5.0) 09/04/18 13:40
[2018-09-06] MEDS: Enoxaparin 40 MG/0.4 ML SYR SC (11:17)
[2018-09-06] MEDS: cefTRIAXone 2 GM/50 ML BAG IVPB (11:17)
--- NOTE | 2018-09-06 11:28 | PDOC.HHF2F ---
1. Encounter Date and Reason I certify that CORI MORFIN was seen by Missy Wallis on 09/06/18 and that I had a [id number] encounter with this patient that meets the physician face to face encounter requirements. 2. Clinical Findings Supporting Skilled Need and Homebound Status I certify that home health services are medically necessary, include either intermittent longterm and/or physical/speech therapy, and that this patient is homebound in that absences from the home require considerable and taxing effort and are infrequent or of short duration, or are attributable to the need to receive medical care. [X] (a) Attached documentation from encounter provides clinical findings supporting skilled need and homebound status (including what assistance patient requires to leave the home). The encounter with the patient was in whole, or in part, for the following medical condition, which is the primary reason for home health care: CELLULITIS Senior Care: needs comopression socks placed daily due to chronic lympedema/edema from heart Dx and diastolic dysfunction/venous insuff and venous stasis. help management medications Physical Therapy: has had hip replacement on R. has signif stiffness/OA that limits mobility. Pt can't even bend over to put socks on, this contributes to his ability to wear compression stocking and exacerbates his LE edema and thusly causing skin breakdown and ulcers. Speech Therapy: Homebound: pt cannot drive. has license, but cannot physically drive 3. Certification and Authentication I certify that I composed the above information based on my clinical judgment relating to this patient's medical condition and, if applicable, clinical findings communicated to me by the NPP or inpatient physician who performed the Home Health Referral. All further orders will be obtained through _Dr. Peña (Community Based Physician - PCP)
--- NOTE | 2018-09-06 11:32 | HHF2F_ITS ---
1. Encounter Date and Reason I certify that CORI MORFIN was seen by Missy Wallis on 09/06/18 and that I had a [id number] encounter with this patient that meets the physician face to face encounter requirements. 2. Clinical Findings Supporting Skilled Need and Homebound Status I certify that home health services are medically necessary, include either intermittent [facility] and/or physical/speech therapy, and that this patient is homebound in that absences from the home require considerable and taxing effort and are infrequent or of short duration, or are attributable to the need to receive medical care. [X] (a) Attached documentation from encounter provides clinical findings supporting skilled need and homebound status (including what assistance patient requires to leave the home). The encounter with the patient was in whole, or in part, for the following medical condition, which is the primary reason for home health care: CELLULITIS [facility]: needs comopression socks placed daily due to chronic lympedema/edema from heart Dx and diastolic dysfunction/venous insuff and venous stasis. help management medications Physical Therapy: has had hip replacement on R. has signif stiffness/OA that limits mobility. Pt can't even bend over to put socks on, this contributes to his ability to wear compression stocking and exacerbates his LE edema and thusly causing skin breakdown and ulcers. Speech Therapy: Homebound: pt cannot drive. has license, but cannot physically drive 3. Certification and Authentication I certify that I composed the above information based on my clinical judgment relating to this patient's medical condition and, if applicable, clinical findings communicated to me by the NPP or inpatient physician who performed the Home Health Referral. All further orders will be obtained through _Dr. Peña (Community Based Physician - PCP)
--- NOTE | 2018-09-06 15:57 | PDOC.CMDIS ---
- If Service Date Differs Date of service: 09/06/18 Time of Service: 15:57 LACE Index Scoring Tool - Questions: Length of Stay (in days): 2 Acuity (Admit via E.D.?): No Comorbidities: PVD, Chronic Pulmonary Disease E.D. Visits: 0 - Answers: Total Score: 5 Risk of Readmission: Low Risk Care Management Discharge Reason for Hospitalization: Cellulitis Discharge Plan: Isra will be discharged home with a resumption of services at [place]. Transportation has been arranged through [facility]. He will need to be taken to the bank first, then pharmacy on his way home and [facility] has agreed to this plan. Patient/Family Education Needs: Discharge plan, limitations, follow up plan of care and Ask Me Three.
--- NOTE | 2018-09-06 16:07 | CMDISCH_ITS ---
- If Service Date Differs Date of service: 09/06/18 Time of Service: 15:57 LACE Index Scoring Tool - Questions: Length of Stay (in days): 2 Acuity (Admit via E.D.?): No Comorbidities: PVD, Chronic Pulmonary Disease E.D. Visits: 0 - Answers: Total Score: 5 Risk of Readmission: Low Risk Care Management Discharge Reason for Hospitalization: Cellulitis Discharge Plan: Isra will be discharged home with a resumption of services at [place]. Transportation has been arranged through [facility]. He will need to be taken to the bank first, then pharmacy on his way home and [facility] has agreed to this plan. Patient/Family Education Needs: Discharge plan, limitations, follow up plan of care and Ask Me Three.
--- NOTE | 2018-09-07 09:18 | DSE_ITS ---
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: Status: Chronic (9) Osteoarthritis of hip: Status: Acute (10) Hx of deep venous thrombosis: Status: Acute (11) Venous stasis dermatitis of both lower extremities: Status: Acute (12) Venous stasis ulcer of ankle limited to breakdown of skin: Status: Acute Discharge Plan Disposition Condition: Improving Discharge Details Reason For Visit: CELLULITIS Admit Date/Time: 09/04/18 10:57 Admit Provider: Missy Smith Attending Provider: Missy Smith Primary Care Provider: Juancho Bacon Hospital Course Hospital Course: pt developed cellulits after removal unna boot (that was in place for LE ulcer secondary to enous stasis/insuff, arterial insuff, chronic lymphedema and LE edema dut diastolic D/F.) Pt was admit and put on IV lasix and IV rochephin. K was stable. also compression stockings and walking. after 48 hrs pt is improved and will be d/c'ed home on oral augmentin/ probiotics. We are tring to find an option for compression garments that pt can put on himself. His hips are so stiff and sore that he cannot get socks on. also ordered home PT to assist. pt cannot drive and is homebound Home Meds and New Rx's Prescriptions: New furosemide [Lasix] 40 mg tablet 40 mg PO BID Qty: 60 RF: 12 Lactobacillus acidophilus 680 mg (750 million cell) capsule 2,000 mmu cells PO BID Qty: 60 RF: 0 amoxicillin-pot clavulanate [Augmentin] 875-125 mg tablet 1 tab PO BID Qty: 10 RF: 0 Nicotrol 10 mg cartridge 1 inh IH 4-8XD PRN (Reason: nicotine cravings) Qty: 168 RF: 0 Continued acetaminophen [Tylenol Extra Strength] 500 mg tablet 500 mg PO Q6H PRNRF: 0 tramadol 50 mg tablet 50 mg PO Q6H PRN (Reason: pain) Qty: 30 RF: 0 Eliquis 5 MG tablet 2.5 mg PO BID RF: 0 finasteride 5 mg tablet 5 mg PO HS Qty: 90 RF: 0 albuterol sulfate [ProAir HFA] 200 PUFF/INH HFA aerosol inhaler 2 puff Inhalation PRN PRNRF: 0 Discontinued furosemide [Lasix] 20 MG tablet 40 mg PO BID RF: 0 Discharge Instructions Instructions: Cellulitis (DC) Additional Instructions: wear compression socks daily antibiotics for 5 days. take probiotics daily. abx may cause diarrhea home PT ordered F/u in clinic on Tuesday w/ Dr. smith Stand Alone Forms: Nursing Discharge Form Referrals: Juancho Bacon MD [Primary Care Provider] - (Please call Dr Bacon's office tomorrow morning and schedule a follow-up appointment to be seen next week) Missy Smith DO [OSTEOPATHIC DOCTOR] - 09/14/18 10:00 am (Please follow-up with Dr Smith on at 10am in the office. Have lab work drawn prior to .) Activity:: encourage walking program Equipment/Supplies:: No Equipment Needed Diet:: Low Sodium Discharge Data Discharge Date/Time-TO BE ENTERED AT DEPARTURE: 09/06/18 14:04 Exam Narrative Exam Narrative: see progress note from 09/06 DS: Data Vitals/I&O Vitals and I&O: Vital Signs Temperature 36.6 C 09/06/18 07:15 Temperature Source Tympanic 09/06/18 07:15 Pulse 58 L 09/06/18 07:15 Pulse Rhythm Regular 09/06/18 08:15 Respiratory Rate 18 09/06/18 07:15 Respiratory Effort 09/06/18 08:15 Respiratory Depth Normal 09/06/18 08:15 Respiratory Pattern Normal 09/06/18 08:15 Blood Pressure 110/71 09/06/18 07:15 Pulse Oximetry 96 09/06/18 07:15 Oxygen Delivery Method Room Air 09/06/18 07:15 Oxygen Flow Rate 0 09/06/18 07:15 Pain Level 0 09/06/18 07:15 Intake & Output 09/06/18 09/06/18 09/07/18 11:59 23:59 11:59 Intake Total 660 / 900 240 / 900 Output Total 1545 / 1545 Balance -885 / -645 240 / -645 Weight 90.1 kg Intake: Oral 660 / 900 240 / 900 Output: Urine 1545 / 1545 Other: Urine Color Yellow Urine Appearance Clear Urine Odor Normal Voiding Methods Toilet [facility] Medical History Venous stasis ulcer of ankle limited to breakdown of skin (Acute) Venous stasis dermatitis of both lower extremities (Acute) Hx of deep venous thrombosis (Acute) SOB (shortness of breath) (Acute) Pulmonary HTN (Acute) Mitral regurgitation (Chronic) Cellulitis of right lower extremity without foot (Acute) Lymphedema of both lower extremities (Acute) Ischemic ulcer of right ankle, limited to breakdown of skin (Acute) Smoking greater than 40 pack years (Chronic) Venous insufficiency of both lower extremities (Chronic) 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 [place] artery of extremity (Chronic) Osteoarthritis of hip (Acute 12/14/12) Mitral valve prolapse (Chronic) Housing problems (Acute) Ulcer of right lower extremity (Acute) 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) Anxiety (Chronic) Hearing loss (Chronic) On anticoagulant therapy (Chronic) Tobacco use disorder (Chronic) 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) BPH (benign prostatic hyperplasia) COPD (chronic obstructive pulmonary disease) Crohns disease DJD (degenerative joint disease) DVT (deep venous thrombosis) Depression Gastroesophageal reflux disease Hypercholesterolemia Osteoarthritis Surgical History Cholecystectomy (11/01/17) Colonoscopy - MAC EGD - MAC Extraction of cataract Repair of inguinal hernia Repair of umbilical hernia Tonsillectomy and adenoidectomy Total replacement of hip Social History Smoking/Tobacco Use Status: Current every day Drug use: Never Do you feel safe in your relationship?: Yes
== END 2018-09-06 14:04 | disposition home or self-care (01) | DRG 603 ==
PROVIDERS: Admitting Provider Surgery; PCP General Practice; Visit Provider Surgery
DX: L03.115 Cellulitis of right lower limb (principal); L97.311 Non-pressure chronic ulcer of right ankle limited to breakdown of skin; L97.819 Non-pressure chronic ulcer of other part of right lower leg with unspecified severity; I87.8 Other specified disorders of veins; I73.9 Peripheral vascular disease, unspecified; F17.210 Nicotine dependence, cigarettes, uncomplicated; I89.0 Lymphedema, not elsewhere classified; R06.02 Shortness of breath; Z96.641 Presence of right artificial hip joint; I51.89 Other ill-defined heart diseases; I08.1 Rheumatic disorders of both mitral and tricuspid valves; I27.20 Pulmonary hypertension, unspecified; Z86.718 Personal history of other venous thrombosis and embolism; Z79.01 Long term (current) use of anticoagulants
CPT/HCPCS: 36415; 73552; 80053; 85652; 86141; 93227; 99222; 99223; 99232; 99233; 99238; 99239; J1650; 71046; 83735; 83880; 85025; 86140; 93306; J1940

== ENCOUNTER 2018-09-14 12:45 | Outpatient (CLI) | payer MEDICARE, MEDICAID, SELFPAY ==
[2018-09-14 13:51] LABS: BUN 18 mg/dL (7-18); CREATININE 1.12 mg/dL (0.70-1.30); Calcium 9.4 mg/dL (8.5-10.1); Chloride 103 mmol/L (98-107); Glucose 105 mg/dL (70-100); Magnesium 2.1 mg/dL (1.8-2.4); Potassium 3.9 mmol/L (3.5-5.1); Sodium 140 mmol/L (136-145)
[2018-09-14 15:38] LABS: C-Reactive Protein 0.52 mg/dL (0.0-0.3)
== END 2018-09-14 13:05 ==
PROVIDERS: PCP General Practice; Visit Provider Surgery
DX: F17.210 Nicotine dependence, cigarettes, uncomplicated (principal); I27.20 Pulmonary hypertension, unspecified; I51.89 Other ill-defined heart diseases; I83.003 Varicose veins of unspecified lower extremity with ulcer of ankle; I87.2 Venous insufficiency (chronic) (peripheral); I89.0 Lymphedema, not elsewhere classified; L03.115 Cellulitis of right lower limb; L97.301 Non-pressure chronic ulcer of unspecified ankle limited to breakdown of skin; R06.02 Shortness of breath; Z86.718 Personal history of other venous thrombosis and embolism; I34.0 Nonrheumatic mitral (valve) insufficiency; I70.25 Atherosclerosis of native arteries of other extremities with ulceration; L03.90 Cellulitis, unspecified; L97.509 Non-pressure chronic ulcer of other part of unspecified foot with unspecified severity
CPT/HCPCS: 36415; 80048; 99212; 83735; 86140

== ENCOUNTER → 2018-09-15 13:10 | Outpatient (BNVA) | payer MEDICARE, MEDICAID, SELFPAY | PROVIDERS: PCP General Practice; Visit Provider Urology | DX: J44.9 Chronic obstructive pulmonary disease, unspecified (principal); R31.29 Other microscopic hematuria | CPT/HCPCS: 99213 ==

== ENCOUNTER 2018-09-21 09:49 | Outpatient (CLI) | payer MEDICARE, MEDICAID, SELFPAY ==
--- NOTE | 2018-09-21 09:40 | DI.RAD_ITS ---
SYMPTOM/DIAGNOSIS: RIGHT ANTERIOR GROIN PAIN RIGHT HIP: Two views. Comparison is 01/21/14. There are again seen post surgical changes of a right total hip replacement. No evidence of hardware failure is seen. The bones are intact. The soft tissues are unremarkable.
== END 2018-09-21 10:09 ==
PROVIDERS: PCP General Practice; Referring Provider General Practice; Visit Provider Orthopaedic Surgery
DX: M25.551 Pain in right hip (principal); Z96.643 Presence of artificial hip joint, bilateral; R10.31 Right lower quadrant pain; L97.219 Non-pressure chronic ulcer of right calf with unspecified severity; I83.003 Varicose veins of unspecified lower extremity with ulcer of ankle; L03.115 Cellulitis of right lower limb; I87.2 Venous insufficiency (chronic) (peripheral); I89.0 Lymphedema, not elsewhere classified; J44.9 Chronic obstructive pulmonary disease, unspecified; F17.200 Nicotine dependence, unspecified, uncomplicated
CPT/HCPCS: 99212; 99213; 99215; 73502

== ENCOUNTER 2019-05-16 07:32 | Outpatient (CLI) | payer MEDICARE, MEDICAID, SELFPAY ==
--- NOTE | 2019-05-16 14:52 | DI.CTLCSR_ITS ---
EXAM: CT CHEST LUNG CANCER SCREEN CLINICAL HISTORY: SCREENING FOR LUNG CANCER, CURRENT SMOKER, F17.210 TECHNIQUE: Low-dose noncontrast COMPARISON: XR CHEST 2V PA LATERAL from 03/02/2018 FINDINGS: No pulmonary nodules are identified. There are changes of centrilobular emphysema greatest in the up per lobes. No infiltrates, pleural or pericardial effusions are seen. There is mild coronary artery and aortic calcification. There is mild left ventricular enlargement. The aorta is normal in diame ter. There is a cystic lesion in the skin in the posterior right lateral chest, likely a sebaceous c yst. Scoliosis and degenerative changes are seen in the spine. Splenic granulomas are incidentally noted. The patient is status post cholecystectomy. IMPRESSION: Lung RADS category 1, negative. No pulmonary nodules are identified. Annual low-dose screening ches t CT is recommended. Lung RADS Cat 1 - Negative: No nodules and definitely benign nodules
== END 2019-05-16 07:52 ==
PROVIDERS: PCP Family Medicine; Visit Provider Family Medicine
DX: Z12.2 Encounter for screening for malignant neoplasm of respiratory organs (principal); F17.210 Nicotine dependence, cigarettes, uncomplicated; J98.4 Other disorders of lung
CPT/HCPCS: G0297

== ENCOUNTER 2019-06-26 00:39 | Outpatient (CLI) | payer MEDICARE, MEDICAID, SELFPAY ==
--- NOTE | 2019-06-26 13:49 | DI.RAD_ITS ---
EXAM: XR LUMBAR SPINE COMPLETE CLINICAL HISTORY: ACUTE LOW BACK PAIN S/P LEANING FORWARD, M54.5; R/O FX. TECHNIQUE: 2D digital imaging was performed. COMPARISON: No exams were available for comparison FINDINGS: BONES: No fracture or destructive lesion. There are endplate osteophytes throughout the lumbar spine. Hypertrophic changes of the facets are seen throughout the lumbar spine but are most marked at L4-5 and L5-S1. DISKS: There is disc space narrowing throughout the lumbar spine. ALIGNMENT: There is no spondylolysis or spondylolisthesis. There is a left convex curvature of the l umbar spine. SOFT TISSUE: Normal. IMPRESSION: Moderately severe degenerative changes in the lumbar spine. DATA REPOSITORY: RADIATION DOSE DELIVERED:
== END 2019-06-26 00:59 ==
PROVIDERS: PCP Family Medicine; Visit Provider Family Medicine
DX: M54.5 Low back pain (principal); M51.37 Other intervertebral disc degeneration, lumbosacral region; M25.78 Osteophyte, vertebrae; M43.07 Spondylolysis, lumbosacral region
CPT/HCPCS: 72110

== ENCOUNTER 2019-06-29 04:24 | Inpatient (IN) | payer MEDICARE, MEDICAID, SELFPAY ==
[2019-06-29] VITALS (36 sets, daily range): BP systolic 85–141; BP diastolic 53–81; PULSE 67–149; RESP 2–25; TEMP 36.4–37.1; O2SAT 88–98
--- NOTE | 2019-06-29 04:19 | ED.GENADUL_ITS ---
Discharge Plan Disposition Patient Disposition: [facility] INPATIENT Condition: Good Discharge Details Chief Complaint: RespSymp Clinical Impression: Lung mass, COPD exacerbation, Respiratory distress Primary Care Provider: Renan Garcia ED Provider: Italo Oliveros Home Meds and New Rx's Prescriptions: No Action acetaminophen [Tylenol Extra Strength] 500 mg tablet 500 mg PO Q6H PRNRF: 0 finasteride 5 mg tablet 5 mg PO DAILY Qty: 90 RF: 4 furosemide [Lasix] 40 mg tablet 40 mg PO BID RF: 0 tramadol 50 mg tablet 50 mg PO TID PRN (Reason: pain) Qty: 15 RF: 0 Eliquis 5 MG tablet 2.5 mg PO BID RF: 0 albuterol sulfate [ProAir HFA] 90 mcg/actuation HFA aerosol inhaler 2 puff Inhalation Q6H PRNRF: 0 fluticasone propion-salmeterol [Advair Diskus] 250-50 mcg/dose blister with device 1 inh IH BID Qty: 60 RF: 3 Nicotrol 10 mg cartridge 1 inh IH 4-8XD PRN (Reason: nicotine cravings) Qty: 168 RF: 0 Medical Decision Making 64-year-old male with a past medical history of COPD, tobacco abuse, pulmonary hypertension, mitral regurg, history of DVT for which he is on Eliquis, presents today for evaluation of left lower quadrant abdominal pain, cough with shortness of breath. Patient states that greater than a week ago he was seen by his PCP for which she was diagnosed with bronchitis, he was started on azithromycin, as well as steroids both of which he finished. He denies any significant improvement in his cough since then, and remains short of breath. He denies any use of nebulizer use at home. He denies any hemoptysis, chest pain, or chest tightness. He denies any bandlike sensation around his chest. States he has been taking his Eliquis as directed. Regards to the left lower quadrant abdominal pain patient states that it began 3 days ago, appears to be centrally located there. States that in conjunction with this he is also noted weakness in his lower extremities that is worsened. Does admit to occasional stool incontinence, mild left-sided back pain, but denies any bladder incontinence, decreased sensation in the rectum or groin, numbness or tingling in the genital or groin region. Physical exam demonstrates mild wheezes and crackles in the lungs, no significant rhonchi. Mildly distended abdomen, relatively nontender except for mild tenderness in the left lower quadrant. Rectal exam demonstrates normal rectal tone, good perirectal sensation and groin sensation. No evidence of cauda equina syndrome. Weakness in the lower extremities is atypical, and I am uncertain of the etiology. Symptoms appearing consistent with Guyon Landeros? syndrome. No significant midline back pain. Differential is broad, I do feel he has continued bronchitis may be suffering from mild pneumonia. Will give continued breathing treatments monitor closely. Source is abdominal pain in conjunction with lower extremity weakness I am uncertain. Cancer mass is unlikely but a possibility. We will get a CT scan of the abdomen to evaluate for acute process. No signs of cauda equina syndrome at this time. [address] scan results have returned, the patient has a notable large left pleural effusion, extensive adenopathy, within the mediastinum with the notable adenopathy/mass surrounding the entire descending thoracic aorta measuring 8 cm in the anterior to posterior dimension and 8 cm transversely. There appears to be lymphadenopathy noted throughout the remainder of the abdomen and other organs. Here in the ED patient did develop what I assume to be an episode of A. fib with RVR, pressure decreased slightly, heart rate went to 150s, additional fluids were given, unfortunately his symptoms resolved immediately prior to EKG. At this time his blood pressure is stable his heart rate stable. Oxygenation remained stable with supplemental oxygen. Unlikely to be an infectious etiology in the chest however out of an abundance of precaution will give vancomycin and Zosyn. Troponin is normal. Lactate continues to slightly rise to 3.8. At a notably long discussion with patient, as well as the patient's sister Mariluz who is currently in [place] driving up to see him. I discussed the concerns with the patient's symptomatology, as well as the expected mortality and the considerable risks and problems with the patient's expected disease process. I spent an extended period of time discussing with him the options of going down to [facility] for notable and definitive options of care, as well as the options of remaining here at [facility] for more comfort focused treatments. At this time the patient has made it clear that he does not want to be intubated, he is trying to decide whether or not he wants CPR. He states that currently he would like to hold off on going to [facility], stay here at [facility] to get comfortable. I discussed with him that this is notable limitation on potential care options, and he understands. I discussed the case with the hospitalist , he agrees with the assessment and plan. I have extensively reviewed the treatment plan with the patient. I have addressed all patient concerns at this time. I have also discussed the plan with the admitting physician and they agree with the current assessment and plan and have agreed to assume responsibility for the patient. All parties demonstrate verbal understanding and agreement with our assessment and plan at this time. EKG 4: 49 Rate 81, intervals normal, sinus rhythm, no significant ST elevations or depressions, no evidence of STEMI. IMPRESSION: 1. Severe diffuse degenerative disc disease. 2. Large left pleural effusion. Extensive adenopathy. Please see CT chest abdomen and pelvis dictation. 3. Moderate central canal narrowing L2-L3, L3-L4. Severe central canal narrowing L4-L5. Thank you for allowing us to participate in the care of your patient. Dictated and Authenticated by: Kin Cason MD 06/29/2019 6:54 AM Eastern Time ([place] & [place]) FINDINGS: Lungs: Emphysema predominantly centrilobular. Right lung appears well aerated. Pleural space: See Mediastinum Finding. Heart: Unremarkable. No cardiomegaly. No pericardial effusion. Mediastinum: Extensive adenopathy within the mediastinum including the anterior mediastinum juxta aortic region aortic pulmonary window and subcarinal regions. Conglomerate adenopathy/mass surrounds the descending thoracic aorta measuring in excess of 8 cm in the anterior-posterior dimension, 8 cm transversely and extending from the level of the tracheal bifurcation to the diaphragm. Retrocrural adenopathy. Soft tissue mass left hilum occludes the bronchus to the left lower lobe. Large left pleural effusion. Aorta: See Mediastinum Finding. Lymph nodes: See Mediastinum Finding. Bones/joints: Degenerative changes within the spine. Soft tissues: Unremarkable. IMPRESSION: 1. Extensive adenopathy within the mediastinum including the anterior mediastinum juxta aortic region aortic pulmonary window and subcarinal regions. Conglomerate adenopathy/mass surrounds the descending thoracic aorta measuring in excess of 8 cm in the anterior- posterior dimension, 8 cm transversely and extending from the level of the tracheal bifurcation to the diaphragm. Retrocrural adenopathy. Soft tissue mass left hilum occludes the bronchus to the left lower lobe. Large left pleural effusion. This represents a change from the CT dated 05-16-19. 2. Emphysema predominantly centrilobular. Right lung appears well aerated. Aeration of a portion of the left upper lobe. FINDINGS: Liver: Hepatic cyst within the caudate lobe Gallbladder and bile ducts: Surgical clips are present in the region of the gallbladder fossa. Pancreas: Normal. No ductal dilation. Spleen: Splenic granulomas are present. Adrenals: Mild nodularity of the adrenal glands Kidneys and ureters: Normal. No hydronephrosis. Stomach and bowel: Diverticulosis without evidence of diverticulitis. Appendix: The appendix is normal. Intraperitoneal space: Unremarkable. No free air. No significant fluid collection. Vasculature: Unremarkable. No abdominal aortic aneurysm. Lymph nodes: Extensive adenopathy in the retrocrural region, adenopathy within the gastrohepatic ligament as well as the aortocaval region extending inferiorly to the aortic bifurcation. Lymph nodes in the juxta pancreatic region. Largest of approximately 3 cm. Bladder: Unremarkable as visualized. Reproductive: Unremarkable as visualized. Bones/joints: Hip arthroplasty bilaterally Soft tissues: Unremarkable. IMPRESSION: 1. Extensive adenopathy in the retrocrural region, adenopathy within the gastrohepatic ligament as well as the aortocaval region extending inferiorly to the aortic bifurcation. Lymph nodes in the juxta pancreatic region. Largest of approximately 3 cm. Correlate regarding a process such as lymphoma. 2. Diverticulosis without evidence of diverticulitis. 3. The appendix is normal. Thank you for allowing us to participate in the care of your patient. Dictated and Authenticated by: Kin Cason MD 06/29/2019 6:41 AM Eastern Time ([place] & [place]) HPI General Date/Time Provider Initiated Documentation: 06/29/19 04:57 . HPI Narrative: 64-year-old male with a past medical history of COPD, tobacco abuse, pulmonary hypertension, mitral regurg, history of DVT for which he is on Eliquis, presents today for evaluation of left lower quadrant abdominal pain, cough with shortness of breath. Patient states that greater than a week ago he was seen by his PCP for which she was diagnosed with bronchitis, he was started on azithromycin, as well as steroids both of which he finished. He denies any significant improvement in his cough since then, and remains short of breath. He denies any use of nebulizer use at home. He denies any hemoptysis, chest pain, or chest tightness. He denies any bandlike sensation around his chest. States he has been taking his Eliquis as directed. Regards to the left lower quadrant abdominal pain patient states that it began 3 days ago, appears to be centrally located there. States that in conjunction with this he is also noted weakness in his lower extremities that is worsened. Does admit to occasional stool incontinence, mild left-sided back pain, but denies any bladder incontinen ce, decreased sensation in the rectum or groin, numbness or tingling in the genital or groin region. He denies any IV or illicit drug use. He has no other complaints at this time. The patient did receive 1 breathing treatment by EMS and had notable improvement with this, additionally he had 1.5 of Solu-Medrol also given by EMS. Related Data Home Medications Medication Instructions Recorded Confirmed Eliquis 2.5 mg PO BID 02/03/16 06/29/19 acetaminophen 500 mg tablet 500 mg PO Q6H PRN 07/31/18 06/29/19 nicotine [Nicotrol] 1 inh IH 4-8XD PRN #168 each 09/06/18 06/29/19 finasteride 5 mg tablet 5 mg PO DAILY #90 tab-cap 09/15/18 06/29/19 furosemide 40 mg tablet 40 mg PO BID tab 04/24/19 06/29/19 albuterol sulfate 90 mcg/actuation 2 puff INHALATION Q6H PRN gm 06/08/19 06/29/19 aerosol inhaler tramadol 50 mg tablet 50 mg PO TID PRN #15 tab 06/22/19 06/22/19 fluticasone 250 mcg-salmeterol 50 1 inh IH BID #60 each 06/26/19 mcg/dose blistr powdr for inhalation Previous Rx's Medication Instructions Recorded nicotine [Nicotrol] 1 inh IH 4-8XD PRN #168 each 09/06/18 finasteride 5 mg tablet 5 mg PO DAILY #90 tab-cap 09/15/18 tramadol 50 mg tablet 50 mg PO TID PRN #15 tab 06/22/19 fluticasone 250 mcg-salmeterol 50 1 inh IH BID #60 each 06/26/19 mcg/dose blistr powdr for inhalation Allergies Allergy/AdvReac Type Severity Reaction Status Date / Time Sulfa (Sulfonamide AdvReac Intermediate Itching Verified 06/22/19 11:03 Antibiotics) Review of Systems All systems reviewed & are unremarkable except as noted in HPI and below PFSH Medical History (Updated 06/29/19 @ 08:20 by Italo Oliveros DO) 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) Anxiety (Chronic) BPH (benign prostatic hyperplasia) Cellulitis of right lower extremity without foot (Acute) Cigarette nicotine dependence (Acute) COPD (chronic obstructive pulmonary disease) Crohn's disease (Chronic) Self Reported Depressive disorder (Chronic) DJD (degenerative joint disease) (Chronic) DVT (deep venous thrombosis) Gastroesophageal reflux disease Hearing loss (Chronic) Housing problems (Acute) Hx of deep venous thrombosis (Acute) Hypercholesterolemia 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) Ischemic ulcer of right ankle, limited to breakdown of skin (Acute) Lymphedema of both lower extremities (Acute) Mitral regurgitation (Chronic) Mitral valve prolapse (Chronic) On anticoagulant therapy (Chronic) for chronic DVTs Osteoarthritis Osteoarthritis of hip (Acute 12/14/12) Overgrown toenails (Acute) Pulmonary HTN (Acute) Smoking greater than 40 pack years (Chronic) cont on smoking cessation SOB (shortness of breath) (Acute) Tobacco use disorder (Chronic) Ulcer of right lower extremity (Acute) 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) Venous insufficiency of both lower extremities (Chronic) as above Venous stasis dermatitis of both lower extremities (Acute) Venous stasis ulcer of ankle limited to breakdown of skin (Acute) Surgical History Cholecystectomy (11/01/17) Colonoscopy - MAC EGD - MAC Extraction of cataract Repair of inguinal hernia Bilateral Repair of umbilical hernia Tonsillectomy and adenoidectomy Total replacement of hip bilateral Family History (Updated 04/04/19 @ 15:04 by Juanita Dixon) Mother Breast cancer Hypertension Father CHF (congestive heart failure) Social History (Updated 04/24/19 @ 11:32 by Kym Lugo RN) Smoking/Tobacco Use Status: Current every day Tobacco Type: cigarettes Smoking packs per day: 1.5 Smoking cigarettes per day: 30.0 Years smoked: 50 Smoking pack-years: 75.00 Tobacco: How many years used: 50 Quit status: considering quitting Counseling given: support program Alcohol Intake: never Drug use: Rarely Substance use type: marijuana Adopted: No Caregiver/Support person: Yes Foster care: No Household members: none Housing: apartment Do you need help understanding health information?: Always current occupation: Disabled Sexually active: Yes Do you think of yourself as: straight/heterosexual Current gender identity: male Do you feel safe at home: Yes Do you feel safe in your relationship?: Yes Exam Narrative Exam Narrative: 1.Const: Well-nourished, Well-developed, appearing stated age 2.Eyes: PERRL, no conjunctival injection, and symmetrical lids. 3.ENT: Atraumatic external nose and ears. Dry MM. Neck: Symmetric, trachea midline, No thyromegaly. 4.CVS: +S1/S2, No murmurs or gallops. Peripheral pulses 2+ and equal in all extremities. Brisk capillary refill in all extremities. 5.RESP: Unlabored respiratory effort. Clear to auscultation bilaterally. No wheezes rales or rhonchi 6.GI: Soft, No hepatosplenomegaly. No guarding or rebound. No pain at McBurney's point, negative Contreras sign. Patient does have pain left lower quadrant but appears to be very mild. No genital tenderness. No evidence of large mass. Mild distention of the abdomen but is otherwise soft. 7.MSK: Normocephalic/Atraumatic, Extremities w/o deformity or ttp No cyanosis or clubbing, Normal movement of all extremities, however he does have decreased strength in the lower extremities, roughly 3 out of 5 for strength bilaterally. Sensation intact throughout. Minimal pitting edema, pulses intact. No midline tenderness to palpation over the CTLS spine. Normal ROM in flexion, extension, side bend, and rotation. Patient has +2-3 out of 5 strength in the lower extremities in dorsiflexion and plantarflexion, knee flexion and extension, hip flexion and extension. Normal strength for dorsiflexion and plantar flexion of the great toe bilaterally. There is +2 over 2 dorsalis pedis pulses bilaterally. There is normal sensation to the skin with light touch at the foot, knee, and hip. Normal saddle sensation. Good sensation over the deep sural nerve area bilaterally. Rectal exam demonstrates intact rectal tone, as well as intact perirectal sensation. 8.Skin: Warm, Dry. No rashes or lesions. 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 Sensation grossly intact, no focal neurologic deficits. 10.Psych: (AAO) x3. Appropriate mood and affect
--- NOTE | 2019-06-29 04:30 | DI.CT_ITS ---
EXAM: CT CHEST/ABD/PEL W and CT reconstructions of the lumbar spine CLINICAL HISTORY: cough, SOB, left sided abdominal pain, back pain TECHNIQUE: Imaging Protocol: Axial computed tomography images with coronal and sagittal reformatted images were created and reviewed CONTRAST MATERIAL: Intravenous: Omnipaque 350 Contrast volume:100 mL Oral: No COMPARISON: CT abd aorta CTA w runoff from 06/26/2018 CT CHEST LUNG CANCER SCREEN from 05/16/2019 FINDINGS: Chest: Thyroid gland: Unremarkable as visualized. Thoracic aorta: Atherosclerosis. No dilatation. Heart: No cardiomegaly or pericardial effusion. No coronary artery calcification. Pleural space: Large left pleural effusion. Possible small right pleural effusion. No pneumothorax. Lymph nodes: There is extensive mediastinal and retroperitoneal adenopathy. There is extensive left hilar adenopathy. There is an aggregate mass of adenopathy surrounding the thoracic aorta measuring at least 8 cm AP x 8 cm transverse. Extends from the level of the bifurcation to the diaphragm. The re are enlarged lymph nodes seen in the right paratracheal region in the AP window. The massive soft tissue in the left hilum obstructs the left lower lobe bronchus. There is resultant complete atelec tasis of the left lower lobe. Lungs: Centrilobular emphysematous changes are seen in the lung apices. There are mild dependent ate lectatic changes in the right lung base. Atelectatic changes are also seen in the left lingula. Bones: Degenerative changes are present. ABDOMEN: Lung Bases: Normal where visualized. Liver: Normal density. Hepatic cysts. Portal, Superior Mesenteric, and Splenic Veins: Unremarkable. Gallbladder and Biliary Tract: Status post cholecystectomy. No evidence of biliary ductal dilatation . Pancreas: Normal density, no abnormal calcifications or inflammatory process. Spleen: Normal. Calcified splenic granulomas are present. Adrenals: Mild nodularity of both adrenal glands. Kidneys: Normal size, contour and axis. No radiodense stones or obstructive uropathy. No masses seen. Abdominal Aorta: Abdominal portion non-dilated. Atherosclerosis. Bowel: No obstruction or bowel wall thickening. Appendix is unremarkable. Colonic diverticulosis. No evidence of acute diverticulitis. Peritoneal Cavity: No ascites, collection or mesenteric inflammatory response. Lymph Nodes: Extensive abdominal adenopathy. There are enlarged retrocrural lymph nodes the largest measuring 2.8 x 2.3. There is an enlarged left periaortic lymph node measuring 3.0 x 2.3 cm. Celiac adenopathy is present. Largest node measures 1.8 x 3.1 cm. Bones: Degenerative changes in the spine. Soft Tissues: Unremarkable. PELVIS: Bladder: Symmetric distention, no gross wall thickening. Partially obscured due to the patient's bila teral total hip replacements. Reproductive Organs: Unremarkable as visualized. Lymph Nodes: Please see above. Bones: Bilateral total hip replacements. Multilevel degenerative changes are present throughout the lumbar spine. Findings do result in moderate central spinal canal stenosis at L2-3 and L3-L4. There is severe central spinal canal stenosis at L4-L5. No acute fracture or subluxation is seen. IMPRESSION: 1. Extensive adenopathy in the chest, abdomen and pelvis as described above. This has shown signific ant change in the chest compared to the CT scan of the chest from 05/16/2019. Findings are suspicious for leukemia/lymphoma. 2. In the chest the mediastinal and hilar adenopathy compress the left lower lobe bronchus causing le ft lower lobe atelectasis. 3. Large left pleural effusion. 4. Pulmonary centrilobular emphysema. Incidental Findings Critical Findings RADIATION DOSE DELIVERED: DATA REPOSITORY: All CT scans at this facility are submitted to the National Radiology Data Registry (NRDR) Dose Index Registry (DIR) with the [employer] ([employer]). RADIATION OPTIMIZATION: All CT scans at this facility use at least one of these dose optimization te chniques: automated exposure control; mA and/or kV adjustment per patient size (includes targeted exa ms where dose is matched to clinical indication); or iterative reconstruction.
[2019-06-29] MEDS: Albuterol/Ipratropium 3 ML UPD VIAL 6 ML UPD (04:42)
[2019-06-29 05:12] LABS: BE (Venous) 6.9 mmol/L (-3-3); HCO3 (Venous) 32 mmol/L (22-28); O2 Sat (Venous) 71 % (70-80); TCO2 (Venous) 27 mmol/L (22-29); pCO2 (Venous) 49 mm/Hg (34-47); pH (Venous) 7.41 (7.35-7.45); pO2 (Venous) 37 mm/Hg (28-44)
[2019-06-29 05:19] LABS: Abs Immature Grans 0.02 k/cumm (0.0-0.09); Absolute Basophil Count 0.01 k/cumm (0.0-0.2); Absolute Eosinophil Count 0.05 k/cumm (0.0-0.7); Absolute Lymphocyte Count 1.44 k/cumm (1.2-3.4); Absolute Monocyte Count 0.93 k/cumm (0.11-0.7); Absolute Neutrophil Count 6.49 k/cumm (1.2-6.7); Basophils % 0.1; Eosinophils % 0.6; HCT 48.8 % (40.0-50.0); HGB 16.4 g/dL (13.5-17.5); Immature Grans % 0.2 %; Lymphocytes % 16.1; Mean Corp. HGB Concentration 33.6 g/dL (32.0-36.0); Mean Corpuscular Hemoglobin 32.5 pg (27.0-33.0); Mean Corpuscular Volume 96.6 fL (80-95); Mean Platelet Volume 10.9 fL (8.0-11.0); Monocytes % 10.4; Neutrophils % 72.6; Platelet Count 195 x1000/uL (130-400); RBC 5.05 m/cumm (4.50-6.00); RBC Distribution Width 13.8 % (11.8-14.1); White Blood Cell Count 8.94 k/cumm (4.4-10.8)
[2019-06-29 05:23] LABS: Lactate 3.2 mmol/L (0.6-1.4)
[2019-06-29 05:33] LABS: ALT 91 U/L (16-63); AST 66 U/L (15-37); Albumin 3.5 g/dL (3.4-5.0); Alkaline Phosphatase 109 U/L (46-116); Anion Gap 10.3 mmol/L (3-11); BUN 27 mg/dL (7-18); Bilirubin, Total 0.7 mg/dL (0.2-1.0); CO2 30.7 mmol/L (21.0-32.0); CREATININE 1.38 mg/dL (0.70-1.30); Calcium 10.3 mg/dL (8.5-10.1); Chloride 99 mmol/L (98-107); Estimated GFR 52.21 (mL/min/1.73m2); Glucose 103 mg/dL (74-106); Lipase 107 U/L (73-393); NT-proBNP 113 pg/mL (<300); Potassium 3.6 mmol/L (3.5-5.1); Sodium 140 mmol/L (136-145); TSH (W/Ref FT4) 0.64 uIU/mL (0.36-3.74); Total Protein 7.5 g/dL (6.4-8.2)
[2019-06-29 05:38] LABS: Troponin I < 0.05 ng/Ml (<0.06)
[2019-06-29] MEDS: Normal Saline 1,000 ML 1000 ML IV ×2 (05:38→06:50)
[2019-06-29 06:28] LABS: INR 1.1 (0.9-1.1); PTT Activated 29.3 sec (21.0-31.4); Prothrombin Time 10.7 sec (9.3-11.0)
--- NOTE | 2019-06-29 06:38 | NUR.NOTE ---
Pt returns from CT, reports feeling more SOB, HR up to 140's. Sats to 91 on 2l, bumped to 3L. Additional #18 LAC, #18 RFA, BCx2 drawn. Reports pain in LLQ improving. L arm 111/74 r arm 113/56
[2019-06-29] MEDS: Omnipaque 350 MG/ML 100 ML BTL IJ (06:39)
[2019-06-29] MEDS: Normal Saline - Diluent 50 ML VIAL IV (06:39)
--- NOTE | 2019-06-29 06:41 | DI.VRAD_ITS ---
Addendum created by Kin Cason MD on 06/29/2019 6:46:33 AM EDT The above was read and discussed at approximately 6:46 AM EDT on06/29/2019 with the attending physician , PITO Benedict. Initial report created on 06/29/2019 6:41:33 AM EDT PROCEDURE INFORMATION: Exam: CT Chest With Contrast Exam date and time: 06/29/2019 4:35 AM Age: 64 years old Clinical indication: Abdominal tenderness; Abdominal pain; Localized; Cough and shortness of breath; Prior surgery; Surgery date: 6+ months; Surgery type: Gallbladder, hernia repair; Patient HX: Cough, SOB, left sided abd pain, back pain TECHNIQUE: Imaging protocol: Computed tomography of the chest with intravenous contrast. Radiation optimization: All CT scans at this facility use at least one of these dose optimization techniques: automated exposure control; mA and/or kV adjustment per patient size (includes targeted exams where dose is matched to clinical indication); or iterative reconstruction. Contrast material: [id number]; Contrast volume: 100 ml; Contrast route: IV L FOREARM 20G; COMPARISON: CT CHEST LUNG CANCER SCREEN 05/16/2019 2:49 PM FINDINGS: Lungs: Emphysema predominantly centrilobular. Right lung appears well aerated. Pleural space: See Mediastinum Finding. Heart: Unremarkable. No cardiomegaly. No pericardial effusion. Mediastinum: Extensive adenopathy within the mediastinum including the anterior mediastinum juxta aortic region aortic pulmonary window and subcarinal regions. Conglomerate adenopathy/mass surrounds the descending thoracic aorta measuring in excess of 8 cm in the anterior-posterior dimension, 8 cm transversely and extending from the level of the tracheal bifurcation to the diaphragm. Retrocrural adenopathy. Soft tissue mass left hilum occludes the bronchus to the left lower lobe. Large left pleural effusion. Aorta: See Mediastinum Finding. Lymph nodes: See Mediastinum Finding. Bones/joints: Degenerative changes within the spine. Soft tissues: Unremarkable. IMPRESSION: 1. Extensive adenopathy within the mediastinum including the anterior mediastinum juxta aortic region aortic pulmonary window and subcarinal regions. Conglomerate adenopathy/mass surrounds the descending thoracic aorta measuring in excess of 8 cm in the anterior-posterior dimension, 8 cm transversely and extending from the level of the tracheal bifurcation to the diaphragm. Retrocrural adenopathy. Soft tissue mass left hilum occludes the bronchus to the left lower lobe. Large left pleural effusion. This represents a change from the CT dated 05-16-19. 2. Emphysema predominantly centrilobular. Right lung appears well aerated. Aeration of a portion of the left upper lobe. PROCEDURE INFORMATION: Exam: CT Abdomen And Pelvis With Contrast Exam date and time: 06/29/2019 4:35 AM Age: 64 years old Clinical indication: Abdominal tenderness; Abdominal pain; Localized; Cough and shortness of breath; Prior surgery; Surgery date: 6+ months; Surgery type: Gallbladder, hernia repair; Patient HX: Cough, SOB, left sided abd pain, back pain TECHNIQUE: Imaging protocol: Computed tomography of the abdomen and pelvis with intravenous contrast. Radiation optimization: All CT scans at this facility use at least one of these dose optimization techniques: automated exposure control; mA and/or kV adjustment per patient size (includes targeted exams where dose is matched to clinical indication); or iterative reconstruction. Contrast material: [id number]; Contrast volume: 100 ml; Contrast route: IV L FOREARM 20G; COMPARISON: CT CHEST LUNG CANCER SCREEN 05/16/2019 2:49 PM FINDINGS: Liver: Hepatic cyst within the caudate lobe Gallbladder and bile ducts: Surgical clips are present in the region of the gallbladder fossa. Pancreas: Normal. No ductal dilation. Spleen: Splenic granulomas are present. Adrenals: Mild nodularity of the adrenal glands Kidneys and ureters: Normal. No hydronephrosis. Stomach and bowel: Diverticulosis without evidence of diverticulitis. Appendix: The appendix is normal. Intraperitoneal space: Unremarkable. No free air. No significant fluid collection. Vasculature: Unremarkable. No abdominal aortic aneurysm. Lymph nodes: Extensive adenopathy in the retrocrural region, adenopathy within the gastrohepatic ligament as well as the aortocaval region extending inferiorly to the aortic bifurcation. Lymph nodes in the juxta pancreatic region. Largest of approximately 3 cm. Bladder: Unremarkable as visualized. Reproductive: Unremarkable as visualized. Bones/joints: Hip arthroplasty bilaterally Soft tissues: Unremarkable. IMPRESSION: 1. Extensive adenopathy in the retrocrural region, adenopathy within the gastrohepatic ligament as well as the aortocaval region extending inferiorly to the aortic bifurcation. Lymph nodes in the juxta pancreatic region. Largest of approximately 3 cm. Correlate regarding a process such as lymphoma. 2. Diverticulosis without evidence of diverticulitis. 3. The appendix is normal. Dictated and Authenticated by: Kin Cason MD. Ordering:ADALGISA Puckett MD
[2019-06-29 06:49] LABS: Lactate 3.8 mmol/L (0.6-1.4)
--- NOTE | 2019-06-29 06:54 | DI.VRAD_ITS ---
PROCEDURE INFORMATION: Exam: CT Lumbar Spine Without Contrast Exam date and time: 06/29/2019 4:35 AM Age: 64 years old Clinical indication: Low back pain TECHNIQUE: Imaging protocol: Computed tomography images of the lumbar spine without contrast. Radiation optimization: All CT scans at this facility use at least one of these dose optimization techniques: automated exposure control; mA and/or kV adjustment per patient size (includes targeted exams where dose is matched to clinical indication); or iterative reconstruction. COMPARISON: CR XR LUMBAR SPINE COMPLETE 06/26/2019 1:36 PM FINDINGS: Vertebrae: No spondylolisthesis No pars defect. No fracture. Multi-level facet hypertrophic changes- Levocurvature of the lumbar spine Discs/Spinal canal/Neural foramina: Severe diffuse degenerative disc disease reflected as severe decrease in disc space height and anterior endplate osteophytosis. Moderate central canal narrowing L2-L3, L3-L4. Severe central canal narrowing L4-L5. Pleural space: Large left pleural effusion. Extensive adenopathy. Please see CT chest abdomen and pelvis dictation. Soft tissues: Unremarkable. IMPRESSION: 1. Severe diffuse degenerative disc disease. 2. Large left pleural effusion. Extensive adenopathy. Please see CT chest abdomen and pelvis dictation. 3. Moderate central canal narrowing L2-L3, L3-L4. Severe central canal narrowing L4-L5. Dictated and Authenticated by: Kin Cason MD. Ordering:ADALGISA Puckett MD
[2019-06-29] MEDS: PIPERACILLIN/TAZO 4.5 GM in Normal Saline 100 ML IVPB (08:01)
[2019-06-29 08:14] LABS: Troponin I < 0.05 ng/Ml (<0.06)
[2019-06-29] MEDS: Lactated Ringers 1,000 ML 100 ML IV ×2 (11:18→19:38)
[2019-06-29] MEDS: Albuterol/Ipratropium 3 ML UPD VIAL UPD ×3 (11:25→23:37)
--- NOTE | 2019-06-29 12:10 | PAPNONF_PTH ---
PATIENT: Isra Mao V LOC: U#:[id number] AGE/SX: 64/M ROOM: RE06/29/[address]: Saw Berg : 1955 BED: A DIS: 07/02/2019 SPEC #: [id number] RECD: 06/29/19 13:03 STATUS: MISTY REQ #: [id number] JANELL: 06/29/19 12:[address]: Saw Berg DEPT: [facility] Cytology RECD BY: Aurelia Trejo ENTERED: 06/29/19 13:05 SP TYPE: SANDY OWENS DR: MD Renan Monae, DO Tissues: 1 - BODY FLUID CYTO(NOT S/U/N/EM)[facility] Procedures: BODY FLUID CYTO(NOT SPU/UR/NIP/ENDOM)[facility] Comments: [id number] (TV = 655 ml's) (FLOW CYTOMETRY = [id number])
--- NOTE | 2019-06-29 12:36 | W.PM.HP.N ---
Date of service: 06/29/19 Time of Service: 12:36 Assessment and Plan Assessment and plan (1) Mediastinal adenopathy: Status: Acute Assessment and plan: Present time patient is considering transfer to the [facility] for further work-up. He is waiting to discuss his care with his sister who is his D POA for healthcare decisions however his daughter who lives in [place] is encouraging him to consider transfer. He is indicated he does not want resuscitation in the event of cardiopulmonary decompensation. He is willing to undergo fiberoptic bronchoscopy if that is what is needed to make the diagnosis. Dr. Guzman, general surgeon, has obtained left pleural fluid for diagnostic purposes. We will go ahead and treat his COPD with a short course of corticosteroids along with bronchodilators.Patient will be DNI/DNR per his wishes. Palliative care consult was obtained with Dr. Freeman who assisted the patient and his family with his decision making. (2) Abdominal lymphadenopathy: Status: Acute Assessment and plan: Work-up as above. Given his extensive lymphadenopathy I think lymphoma is a higher chance than lung cancer. (3) COPD (chronic obstructive pulmonary disease): Status: None Assessment and plan: Short course of p.o. prednisone along with nebulized bronchodilators. Consider addition of Advair or Symbicort Qualifiers: COPD type: emphysema Emphysema type: centrilobular Qualified Code(s): J43.2 - Centrilobular emphysema (4) DVT (deep venous thrombosis): Status: Chronic Assessment and plan: History of bilateral DVTs for which she has been on chronic anticoagulation. We will continue his current dose of Eliquis. Qualifiers: DVT location: lower extremity Affected thrombotic vein of extremity: unspecified vein of extremity Chronicity: chronic Laterality: bilateral Qualified Code(s): I82.503 - Chronic embolism and thrombosis of unspecified deep veins of lower extremity, bilateral History of Present Illness History of Present Illness Chief Complaint: Shortness of breath Narrative: 64-year-old male with a history of COPD, BPH, recurrent DVTs currently anticoagulated with Eliquis, history of MVP presents emergency department with progressive exertional dyspnea this been going on for the past 3 months. He recently saw his PCP and was diagnosed with acute bronchitis and treated with azithromycin and steroids which she has finished. He has had no improvement in his cough and remains short of breath with minimal exertion. Evaluation the emergency department included a CT scan of his chest abdomen pelvis and spine. CT of his chest showed extensive adenopathy in the chest abdomen and pelvis as well as mediastinal and hilar adenopathy causing compression of the left lower lobe bronchus and left lower lobe atelectasis as well as mediastinal adenopathy surrounding his thoracic aorta. He has a large left pleural effusion as well as emphysema. There is extensive abdominal adenopathy including the periaortic lymph nodes and celiac adenopathy. CT of the lumbar spine without contrast demonstrated diffuse degenerative disc changes large left pleural effusion and extensive adenopathy as well as moderate central canal narrowing of L2-L3 and L3-L4 and severe central canal stenosis of L4-L5. Patient is admitted now for treatment and work-up of his symptoms. I consult with Dr. Guzman, general surgeon, who performed a left-sided thoracentesis today in an attempt to make a diagnosis as well as to alleviate some of his dyspnea. Patient at this point is willing to undergo a work-up for what appears to be a cancer or lymphoma and his daughter would like him to go to the [place] in [place] where he would be closer to her. Patient would like to discuss his case with his sister who is his DURABLE POWER OF CART ATTENDANT for medical decision-making. His sister is driving up from [employer] today. 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) Ischemic ulcer of right ankle, limited to breakdown of skin (Acute) Lymphedema of both lower extremities (Acute) Mitral regurgitation (Chronic) Mitral valve prolapse (Chronic) On anticoagulant therapy (Chronic) for chronic DVTs Osteoarthritis Osteoarthritis of hip (Acute 12/14/12) Overgrown toenails (Acute) Pulmonary HTN (Acute) Smoking greater than 40 pack years (Chronic) cont on smoking cessation SOB (shortness of breath) (Acute) Tobacco use disorder (Chronic) Ulcer of right lower extremity (Acute) 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) Venous insufficiency of both lower extremities (Chronic) as above Venous stasis dermatitis of both lower extremities (Acute) Venous stasis ulcer of ankle limited to breakdown of skin (Acute) Surgical History Cholecystectomy (11/01/17) Colonoscopy - MAC EGD - MAC Extraction of cataract Repair of inguinal hernia Bilateral Repair of umbilical hernia Tonsillectomy and adenoidectomy Total replacement of hip bilateral Family History Mother Breast cancer Hypertension Father CHF (congestive heart failure) Social History (Updated 06/29/19 @ 13:41 by Saw Berg) Smoking/Tobacco Use Status: Current every day Tobacco Type: cigarettes Smoking packs per day: 1.5 Smoking cigarettes per day: 30.0 Years smoked: 50 Smoking pack-years: 75.00 Tobacco: How many years used: 50 Quit status: considering quitting Counseling given: support program Alcohol Intake: former Year quit: 2007 Drug use: Rarely Substance use type: marijuana Adopted: No Caregiver/Support person: Yes Foster care: No Household members: none Housing: apartment Number of Children: 3 Do you need help understanding health information?: Always current occupation: Disabled Sexually active: Yes Do you think of yourself as: straight/heterosexual Current gender identity: male What is your relationship status?: Panel score (0-1 are the most socially isolated patients): 0 What type of physical activity do you participate in: none Do you feel safe at home: Yes Do you feel safe in your relationship?: Yes Meds Home Medications and Allergies Home Medications Medication Instructions Recorded Confirmed Type Eliquis 2.5 mg PO BID 02/03/16 06/29/19 History acetaminophen 500 mg tablet 500 mg PO Q6H PRN 07/31/18 06/29/19 History nicotine [Nicotrol] 1 inh IH 4-8XD PRN #168 each 09/06/18 06/29/19 Rx finasteride 5 mg tablet 5 mg PO DAILY #90 tab-cap 09/15/18 06/29/19 Rx furosemide 40 mg tablet 40 mg PO BID tab 04/24/19 06/29/19 History albuterol sulfate 90 mcg/actuation 2 puff INHALATION Q6H PRN gm 06/08/19 06/29/19 History aerosol inhaler tramadol 50 mg tablet 50 mg PO TID PRN #15 tab 06/22/19 06/22/19 Rx fluticasone 250 mcg-salmeterol 50 1 inh IH BID #60 each 06/26/19 Rx mcg/dose blistr powdr for inhalation Allergies Allergy/AdvReac Type Severity Reaction Status Date / Time Sulfa (Sulfonamide AdvReac Intermediate Itching Verified 06/22/19 11:03 Antibiotics) Exam Narrative Exam Narrative: male who appears to be older than his stated age of 64. He has a brown appearance to his face. Otherwise HEENT is unremarkable. Lungs revealed markedly diminished breath sounds at the left lung base otherwise he has diffuse mildly diminished breath sounds throughout without wheezing or rhonchi. Heart is regular rate and rhythm with a soft systolic murmur over the apex no thrill heave or gallop Abdomen is obese soft nontender. Lower extremities have 1+ edema with a dark brown to bronze pigmentation consistent with stasis dermatitis. Pedal pulses are palpable. Neurologic exam is grossly intact no focal motor deficits. No facial asymmetry no dysarthric speech rest of his cranial nerves are grossly intact. Results Labs Result diagrams: 06/29/19 04:50 06/29/19 04:50 Labs: Laboratory Results - last 24 hr 06/29/19 06/29/19 06/29/19 04:50 04:50 04:50 WBC 8.94 RBC 5.05 Hgb 16.4 Hct 48.8 MCV 96.6 H MCH 32.5 MCHC 33.6 RDW 13.8 Plt Count 195 MPV 10.9 Immature Gran % 0.2 Neutrophils % 72.6 Lymphocytes % 16.1 Monocytes % 10.4 Eosinophils % 0.6 Basophils % 0.1 Absolute Neutrophils 6.49 Absolute Lymphocytes 1.44 Absolute Monocytes 0.93 H Absolute Eosinophils 0.05 Absolute Basophils 0.01 PT INR APTT VBG pH VBG pCO2 VBG pO2 VBG HCO3 VBG Total CO2 VBG O2 Saturation VBG Base Excess Sodium 140 Potassium 3.6 Chloride 99 Carbon Dioxide 30.7 Anion Gap 10.3 BUN 27 H Creatinine 1.38 H Estimated GFR/1.73 m2 52.21 Glucose 103 Lactate 3.2 H* Calcium 10.3 H Total Bilirubin 0.7 AST 66 H ALT 91 H Alkaline Phosphatase 109 Troponin I < 0.05 NT-Pro-B Natriuret Pep 113 Total Protein 7.5 Albumin 3.5 Lipase 107 TSH 0.64 Patient ABO/Rh Antibody Screen 06/29/19 06/29/19 06/29/19 04:50 04:50 06:30 WBC RBC Hgb Hct MCV MCH MCHC RDW Plt Count MPV Immature Gran % Neutrophils % Lymphocytes % Monocytes % Eosinophils % Basophils % Absolute Neutrophils Absolute Lymphocytes Absolute Monocytes Absolute Eosinophils Absolute Basophils PT 10.7 INR 1.1 APTT 29.3 VBG pH 7.41 VBG pCO2 49 H VBG pO2 37 VBG HCO3 32 H VBG Total CO2 27 VBG O2 Saturation 71 VBG Base Excess 6.9 H Sodium Potassium Chloride Carbon Dioxide Anion Gap BUN Creatinine Estimated GFR/1.73 m2 Glucose Lactate 3.8 H* Calcium Total Bilirubin AST ALT Alkaline Phosphatase Troponin I NT-Pro-B Natriuret Pep Total Protein Albumin Lipase TSH Patient ABO/Rh Antibody Screen 06/29/19 06/29/19 06:30 07:50 WBC RBC Hgb Hct MCV MCH MCHC RDW Plt Count MPV Immature Gran % Neutrophils % Lymphocytes % Monocytes % Eosinophils % Basophils % Absolute Neutrophils Absolute Lymphocytes Absolute Monocytes Absolute Eosinophils Absolute Basophils PT INR APTT VBG pH VBG pCO2 VBG pO2 VBG HCO3 VBG Total CO2 VBG O2 Saturation VBG Base Excess Sodium Potassium Chloride Carbon Dioxide Anion Gap BUN Creatinine Estimated GFR/1.73 m2 Glucose Lactate Calcium Total Bilirubin AST ALT Alkaline Phosphatase Troponin I < 0.05 NT-Pro-B Natriuret Pep Total Protein Albumin Lipase TSH Patient ABO/Rh B Positive Antibody Screen Negative Last Vital Signs Temp 37 C 06/29/19 10:13 Pulse 80 06/29/19 11:27 Resp 18 06/29/19 11:27 BP 112/68 06/29/19 10:13 Pulse Ox 94 L 06/29/19 11:30
--- NOTE | 2019-06-29 12:45 | DI.RAD_ITS ---
EXAM: XR PORTABLE CHEST AP CLINICAL HISTORY: post thoracenthesis TECHNIQUE: 2D digital imaging was performed. COMPARISON: CT CHEST/ABD/PEL W from 06/29/2019 FINDINGS: MEDIASTINUM: Normal. HEART: Normal. PULMONARY VASCULATURE: Normal. LUNGS: Persistent opacities in the lung bases, left greater than right. PLEURAL SPACE: Interval decrease in size of the left pleural effusion when compared to the CT scan of the chest, abdomen and pelvis from 06/29/2019. No pneumothorax. BONE:Degenerative changes of the spine. OTHER FINDINGS:Normal. IMPRESSION: Interval decrease in size of left pleural effusion. No pneumothorax. DATA REPOSITORY: RADIATION DOSE DELIVERED:
--- NOTE | 2019-06-29 12:53 | W.SURGCON ---
Date of service: 06/29/19 Time of Service: 12:53 Assessment and Plan Assessment and plan (1) COPD (chronic obstructive pulmonary disease): Status: None Qualifiers: COPD type: emphysema Emphysema type: centrilobular Qualified Code(s): J43.2 - Centrilobular emphysema (2) Pleural effusion: Status: Acute Assessment and plan: A\\ 64 year old with shortness of breath, mediastinal and hilar lymphadenopathy and lung mass with a large left pleural effusion P\\ Left thoracenthesis Risks, benefits, complications were reviewed with the patient. Complications include but are not limited to bleeding, infection, pneumothorax, and pain. Questions entertained and answered to his satisfaction and he wished to proceed. No guarantees were given or implied. (3) Mediastinal adenopathy: Status: Acute (4) Respiratory distress: Status: Acute (5) Lung mass: Status: Acute History of Present Illness History of Present Illness Chief Complaint: Left Pleural effusion Narrative: 64-year-old male with a history of COPD, BPH, recurrent DVTs currently anticoagulated with Eliquis, history of MVP presents emergency department with progressive exertional dyspnea this been going on for the past 3 months. He recently saw his PCP and was diagnosed with acute bronchitis and treated with azithromycin and steroids which he has finished. He has had no improvement in his cough and remains short of breath with minimal exertion. Evaluation the emergency department included a CT scan of his chest abdomen pelvis and spine. CT of his chest showed extensive adenopathy in the chest abdomen and pelvis as well as mediastinal and hilar adenopathy causing compression of the left lower lobe bronchus and left lower lobe atelectasis as well as mediastinal adenopathy surrounding his thoracic aorta. He has a large left pleural effusion as well as emphysema. There is extensive abdominal adenopathy including the periaortic lymph nodes and celiac adenopathy. CT of the lumbar spine without contrast demonstrated diffuse degenerative disc changes large left pleural effusion and extensive adenopathy as well as moderate central canal narrowing of L2-L3 and L3-L4 and severe central canal stenosis of L4-L5. Patient was admitted for treatment and work-up of his symptoms. I was consulted for a left thoracenthesis for therapeutic and diagnostic purpose. Consults Consult date: 06/29/19 Requesting physician: Saw Berg Review of Systems Constitutional Constitutional: Denies fever(s), Denies night sweats and Denies weight loss Eyes Eyes: Denies change in vision Cardiovascular Cardiovascular: Denies chest pain, Denies chest pain at rest, Denies chest pain with activity, Denies irregular heart rhythm and Reports dyspnea on exertion Respiratory Respiratory: Reports as per HPI, Reports cough and Reports dyspnea on exertion Gastrointestinal Gastrointestinal: Reports system reviewed and no additional complaints, except as documented Genitourinary Genitourinary: Reports system reviewed and no additional complaints, except as documented Musculoskeletal Musculoskeletal: Reports system reviewed and no additional complaints, except as documented Neurologic Neurologic: Reports system reviewed and no additional complaints, except as documented Psychiatric Psychiatric: Reports system reviewed and no additional complaints, except as documented Endocrine Endocrine: Reports system reviewed and no additional complaints, except as documented [facility] Medical History 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) Anxiety (Chronic) BPH (benign prostatic hyperplasia) Cellulitis of right lower extremity without foot (Acute) Cigarette nicotine dependence (Acute) COPD (chronic obstructive pulmonary disease) Crohn's disease (Chronic) Self Reported Depressive disorder (Chronic) DJD (degenerative joint disease) (Chronic) DVT (deep venous thrombosis) Gastroesophageal reflux disease Hearing loss (Chronic) Housing problems (Acute) Hx of deep venous thrombosis (Acute) Hypercholesterolemia 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 [place] artery of extremity (Chronic) Ischemic ulcer of right ankle, limited to breakdown of skin (Acute) Lymphedema of both lower extremities (Acute) Mitral regurgitation (Chronic) Mitral valve prolapse (Chronic) On anticoagulant therapy (Chronic) for chronic DVTs Osteoarthritis Osteoarthritis of hip (Acute 12/14/12) Overgrown toenails (Acute) Pulmonary HTN (Acute) Smoking greater than 40 pack years (Chronic) cont on smoking cessation SOB (shortness of breath) (Acute) Tobacco use disorder (Chronic) Ulcer of right lower extremity (Acute) 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) Venous insufficiency of both lower extremities (Chronic) as above Venous stasis dermatitis of both lower extremities (Acute) Venous stasis ulcer of ankle limited to breakdown of skin (Acute) Surgical History Cholecystectomy (11/01/17) Colonoscopy - MAC EGD - MAC Extraction of cataract Repair of inguinal hernia Bilateral Repair of umbilical hernia Tonsillectomy and adenoidectomy Total replacement of hip bilateral Family History Mother Breast cancer Hypertension Father CHF (congestive heart failure) Social History (Updated 06/29/19 @ 13:41 by Saw Berg) Smoking/Tobacco Use Status: Current every day Tobacco Type: cigarettes Smoking packs per day: 1.5 Smoking cigarettes per day: 30.0 Years smoked: 50 Smoking pack-years: 75.00 Tobacco: How many years used: 50 Quit status: considering quitting Counseling given: support program Alcohol Intake: former Year quit: 2007 Drug use: Rarely Substance use type: marijuana Adopted: No Caregiver/Support person: Yes Foster care: No Household members: none Housing: apartment Number of Children: 3 Do you need help understanding health information?: Always current occupation: Disabled Sexually active: Yes Do you think of yourself as: straight/heterosexual Current gender identity: male What is your relationship status?: Panel score (0-1 are the most socially isolated patients): 0 What type of physical activity do you participate in: none Do you feel safe at home: Yes Do you feel safe in your relationship?: Yes Exam Const General: no acute distress Nutritional Appearance: overweight Orientation: alert and oriented x3 HENMT Head: normocephalic and atraumatic Eyes Pupils: PERRL Resp Effort & Inspection: normal respiratory effort Auscultation: diminished lung sounds on the left in the lower lung gonzales Cardio Rate: regular rate Rhythm: regular rhythm Heart Sounds: no gallops, no murmurs and no rubs Results Last Vital Signs Temp 98.6 F 06/29/19 10:13 Pulse 80 06/29/19 11:27 Resp 18 06/29/19 11:27 BP 112/68 06/29/19 10:13 Pulse Ox 94 L 06/29/19 11:30 Labs Result diagrams: 06/29/19 04:50 06/29/19 04:50 Labs: Laboratory Results - last 24 hr 06/29/19 06/29/19 06/29/19 04:50 04:50 04:50 WBC 8.94 RBC 5.05 Hgb 16.4 Hct 48.8 MCV 96.6 H MCH 32.5 MCHC 33.6 RDW 13.8 Plt Count 195 MPV 10.9 Immature Gran % 0.2 Neutrophils % 72.6 Lymphocytes % 16.1 Monocytes % 10.4 Eosinophils % 0.6 Basophils % 0.1 Absolute Neutrophils 6.49 Absolute Lymphocytes 1.44 Absolute Monocytes 0.93 H Absolute Eosinophils 0.05 Absolute Basophils 0.01 PT INR APTT VBG pH VBG pCO2 VBG pO2 VBG HCO3 VBG Total CO2 VBG O2 Saturation VBG Base Excess Sodium 140 Potassium 3.6 Chloride 99 Carbon Dioxide 30.7 Anion Gap 10.3 BUN 27 H Creatinine 1.38 H Estimated GFR/1.73 m2 52.21 Glucose 103 Lactate 3.2 H* Calcium 10.3 H Total Bilirubin 0.7 AST 66 H ALT 91 H Alkaline Phosphatase 109 Troponin I < 0.05 NT-Pro-B Natriuret Pep 113 Total Protein 7.5 Albumin 3.5 Lipase 107 TSH 0.64 Patient ABO/Rh Antibody Screen 06/29/19 06/29/19 06/29/19 04:50 04:50 06:30 WBC RBC Hgb Hct MCV MCH MCHC RDW Plt Count MPV Immature Gran % Neutrophils % Lymphocytes % Monocytes % Eosinophils % Basophils % Absolute Neutrophils Absolute Lymphocytes Absolute Monocytes Absolute Eosinophils Absolute Basophils PT 10.7 INR 1.1 APTT 29.3 VBG pH 7.41 VBG pCO2 49 H VBG pO2 37 VBG HCO3 32 H VBG Total CO2 27 VBG O2 Saturation 71 VBG Base Excess 6.9 H Sodium Potassium Chloride Carbon Dioxide Anion Gap BUN Creatinine Estimated GFR/1.73 m2 Glucose Lactate 3.8 H* Calcium Total Bilirubin AST ALT Alkaline Phosphatase Troponin I NT-Pro-B Natriuret Pep Total Protein Albumin Lipase TSH Patient ABO/Rh Antibody Screen 06/29/19 06/29/19 06:30 07:50 WBC RBC Hgb Hct MCV MCH MCHC RDW Plt Count MPV Immature Gran % Neutrophils % Lymphocytes % Monocytes % Eosinophils % Basophils % Absolute Neutrophils Absolute Lymphocytes Absolute Monocytes Absolute Eosinophils Absolute Basophils PT INR APTT VBG pH VBG pCO2 VBG pO2 VBG HCO3 VBG Total CO2 VBG O2 Saturation VBG Base Excess Sodium Potassium Chloride Carbon Dioxide Anion Gap BUN Creatinine Estimated GFR/1.73 m2 Glucose Lactate Calcium Total Bilirubin AST ALT Alkaline Phosphatase Troponin I < 0.05 NT-Pro-B Natriuret Pep Total Protein Albumin Lipase TSH Patient ABO/Rh B Positive Antibody Screen Negative
--- NOTE | 2019-06-29 12:54 | ROE_ITS ---
Date of service: 06/29/19 Time of Service: 12:54 Operative Note Operative Note DATE OF PROCEDURE: 06/29/19 PRE-OP DIAGNOSIS: Left pleural effusion, lung mass and medistinal lymphadenopathy POST-OP DIAGNOSIS: same PROCEDURE: Left Thoracenthesis SURGEON: Eileen Guzman ANESTHESIA: local (1% Lidocaine) ESTIMATED BLOOD LOSS: 2 PATHOLOGY: other (Pleural fluid sent for cytology) COMPLICATIONS: None Patient was transported to: no change Patient's condition: stable Indications: Mr. Mao was admitted by the hospital service for Shortness of breath. He has a hx of COPD and was recently treated for bronchitis. CT scan done in the ER showed a hilar mass compressing a bronchus as well as lymphadenopathy and a large left pleural effusion. Procedure Description: After informed consent was obtained the patient was asked to sit at the edge of his bed. The patient was given a table with a pillow to lean against. The back was exposed. The pocket of fluid was easily found with percussion. Once the fluid was identified a kaela was made on the skin. A time out was done. The patients name, , procedure to be done and side, allergies and antibiotic given were reviewed. Fire risk was assessed. Next the back was prepped and draped in a standard fashion with chlorhexidine. The thoracenthesis kit was opened in a sterile fashion. 1% Lidocaine was injected into the dermis, subcutaneous tissue and down between the ribs. A small incision was then made with an 11 blade. The needle and sheath were then slowly introduced until I was able to suction some fluid. At this point the sheath was advanced and the needle was pulled back. The needle was then attached to tubing and to a suction bottle. 1000 cc of fluid was removed. The sheath was removed and a band aid was applied. The patient was placed back on his bed in stable condition. The patient tolerated the procedure well and there were no immediate compli cations. A chest XRay was ordered and is pending at the time of this dictation. The fluid is sent to the lab for cytology.
--- NOTE | 2019-06-29 13:48 | CHAPLAIN ---
Isra and I know each other from a previous admission for himself, and his Brigitte here a few years ago. Isra said he's just learned that he has a stage 4 tumor. He hasn't been feeling well and came in to ED early this morning. He said met the palliative care doctors (Dr. Freeman) this morning. He completed a COLST form with her. Isra said he is still close to Sandra, Brigitte's daughter, and she will be in to visit and Isra's sister is driving up form [place]. Isra took good care of Brigitte before he did, without a lot of other supports. And she did not feel well for several months. I will continue to visit.
--- NOTE | 2019-06-29 14:19 | W.PALLCONSUL ---
Date of service: 06/29/19 Time of Service: 10:19 History of Present Illness Narrative: I am meeting with Kody today after arriving shortly from the ER. Kody states that he was in his usual state of health until a few days ago when he started having more and more shortness of breath. Baseline he has COPD diastolic dysfunction continues to smoke heart valve problems and status post hip replacement. When he came to the emergency room during the course of the work-up he had a chest abdomen and pelvis CT. Multiple lung masses were found. Some of the masses are pushing on the bronchi. He was told that he has stage IV lung cancer. He was given the option of going down to [facility] but declined. I was contacted for palliative consult. Specifically I was asked to determine his CODE STATUS and if appropriate complete a CO LST form Consults Consult date: 06/29/19 Requesting physician: Italo Oliveros Assessment and Plan Assessment and plan (1) COPD exacerbation: Status: Acute (2) Lung mass: Status: Acute (3) COPD (chronic obstructive pulmonary disease): Status: None Qualifiers: COPD type: emphysema Emphysema type: centrilobular Qualified Code(s): J43.2 - Centrilobular emphysema (4) Limited code status: Status: Acute Assessment and plan: We spoke about his new lung masses. He is having dyspnea. We both agree to meet tomorrow after he is feeling better and knows more We did discuss CODE STATUS, specifically whether or not he would like to be intubated should his heart stop or his breathing stop. He was adamant that he did not want CPR, he did not want intubation. We also did talk about work-up. Initially he said he did not want a work-up but after we discussed this he would like to know more about what the work-up would entail. I will meet with him tomorrow at that time discuss goals of care etc. His sister who is his DPOA is on her way from [place]. He would like me to meet when she arrives so that we can better discuss his diagnosis and what he would like to do regarding work-up. I have spent more than 50% of time in counseling with this patient. This document was created by [employer] recognition and may contain grammatical and translation errors. Review of Systems Constitutional Constitutional: Reports body ache(s), Reports daytime sleepiness, Reports difficulty sleeping, Reports fatigue, Denies fever(s), Reports lethargy, Reports weakness and Reports weight loss Eyes Eyes: Reports system reviewed and no additional complaints, except as documented ENT Ears, Nose, Mouth, and Throat: Reports disequilibrium Comments: dry mouth Cardiovascular Cardiovascular: Denies chest pain with activity, Reports lightheadedness and Reports dyspnea Respiratory Respiratory: Reports dyspnea Neurologic Neurologic: Reports disequilibrium and Reports weakness Endocrine Endocrine: Reports fatigue [facility] Medical History 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) Anxiety (Chronic) BPH (benign prostatic hyperplasia) Cellulitis of right lower extremity without foot (Acute) Cigarette nicotine dependence (Acute) COPD (chronic obstructive pulmonary disease) Crohn's disease (Chronic) Self Reported Depressive disorder (Chronic) DJD (degenerative joint disease) (Chronic) DVT (deep venous thrombosis) Gastroesophageal reflux disease Hearing loss (Chronic) Housing problems (Acute) Hx of deep venous thrombosis (Acute) Hypercholesterolemia 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 [place] artery of extremity (Chronic) Ischemic ulcer of right ankle, limited to breakdown of skin (Acute) Lymphedema of both lower extremities (Acute) Mitral regurgitation (Chronic) Mitral valve prolapse (Chronic) On anticoagulant therapy (Chronic) for chronic DVTs Osteoarthritis Osteoarthritis of hip (Acute 12/14/12) Overgrown toenails (Acute) Pulmonary HTN (Acute) Smoking greater than 40 pack years (Chronic) cont on smoking cessation SOB (shortness of breath) (Acute) Tobacco use disorder (Chronic) Ulcer of right lower extremity (Acute) 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) Venous insufficiency of both lower extremities (Chronic) as above Venous stasis dermatitis of both lower extremities (Acute) Venous stasis ulcer of ankle limited to breakdown of skin (Acute) Surgical History Cholecystectomy (11/01/17) Colonoscopy - MAC EGD - MAC Extraction of cataract Repair of inguinal hernia Bilateral Repair of umbilical hernia Tonsillectomy and adenoidectomy Total replacement of hip bilateral Family History Mother Breast cancer Hypertension Father CHF (congestive heart failure) Social History (Updated 06/29/19 @ 13:41 by Saw Berg) Smoking/Tobacco Use Status: Current every day Tobacco Type: cigarettes Smoking packs per day: 1.5 Smoking cigarettes per day: 30.0 Years smoked: 50 Smoking pack-years: 75.00 Tobacco: How many years used: 50 Quit status: considering quitting Counseling given: support program Alcohol Intake: former Year quit: 2007 Drug use: Rarely Substance use type: marijuana Adopted: No Caregiver/Support person: Yes Foster care: No Household members: none Housing: apartment Number of Children: 3 Do you need help understanding health information?: Always current occupation: Disabled Sexually active: Yes Do you think of yourself as: straight/heterosexual Current gender identity: male What is your relationship status?: Panel score (0-1 are the most socially isolated patients): 0 What type of physical activity do you participate in: none Do you feel safe at home: Yes Do you feel safe in your relationship?: Yes Exam Narrative Exam Narrative: XAM: CT CHEST/ABD/PEL W and CT reconstructions of the lumbar spine CLINICAL HISTORY: cough, SOB, left sided abdominal pain, back pain TECHNIQUE: Imaging Protocol: Axial computed tomography images with coronal and sagittal reformatted images were created and reviewed CONTRAST MATERIAL: Intravenous: Omnipaque 350 Contrast volume:100 mL Oral: No COMPARISON: CT abd aorta CTA w runoff from 06/26/2018 CT CHEST LUNG CANCER SCREEN from 05/16/2019 FINDINGS: Chest: Thyroid gland: Unremarkable as visualized. Thoracic aorta: Atherosclerosis. No dilatation. Heart: No cardiomegaly or pericardial effusion. No coronary artery calcification. Pleural space: Large left pleural effusion. Possible small right pleural effusion. No pneumothorax. Lymph nodes: There is extensive mediastinal and retroperitoneal adenopathy. There is extensive left hilar adenopathy. There is an aggregate mass of adenopathy surrounding the thoracic aorta measuring at least 8 cm AP x 8 cm transverse. Extends from the level of the bifurcation to the diaphragm. There are enlarged lymph nodes seen in the right paratracheal region in the AP window. The massive soft tissue in the left hilum obstructs the left lower lobe bronchus. There is resultant complete atelectasis of the left lower lobe. Lungs: Centrilobular emphysematous changes are seen in the lung apices. There are mild dependent atelectatic changes in the right lung base. Atelectatic changes are also seen in the left lingula. Bones: Degenerative changes are present. ABDOMEN: Lung Bases: Normal where visualized. Liver: Normal density. Hepatic cysts. Portal, Superior Mesenteric, and Splenic Veins: Unremarkable. Gallbladder and Biliary Tract: Status post cholecystectomy. No evidence of biliary ductal dilatation. Pancreas: Normal density, no abnormal calcifications or inflammatory process. Spleen: Normal. Calcified splenic granulomas are present. Adrenals: Mild nodularity of both adrenal glands. Kidneys: Normal size, contour and axis. No radiodense stones or obstructive uropathy. No masses seen. Abdominal Aorta: Abdominal portion non-dilated. Atherosclerosis. Bowel: No obstruction or bowel wall thickening. Appendix is unremarkable. Colonic diverticulosis. No evidence of acute diverticulitis. Peritoneal Cavity: No ascites, collection or mesenteric inflammatory response. Lymph Nodes: Extensive abdominal adenopathy. There are enlarged retrocrural lymph nodes the largest measuring 2.8 x 2.3. There is an enlarged left periaortic lymph node measuring 3.0 x 2.3 cm. Celiac adenopathy is present. Largest node measures 1.8 x 3.1 cm. Bones: Degenerative changes in the spine. Soft Tissues: Unremarkable. PELVIS: Bladder: Symmetric distention, no gross wall thickening. Partially obscured due to the patient's bilateral total hip replacements. Reproductive Organs: Unremarkable as visualized. Lymph Nodes: Please see above. Bones: Bilateral total hip replacements. Multilevel degenerative changes are present throughout the lumbar spine. Findings do result in moderate central spinal canal stenosis at L2-3 and L3-L4. There is severe central spinal canal stenosis at L4-L5. No acute fracture or subluxation is seen. IMPRESSION: 1. Extensive adenopathy in the chest, abdomen and pelvis as described above. This has shown significant change in the chest compared to the CT scan of the chest from 05/16/2019. Findings are suspicious for leukemia/lymphoma. 2. In the chest the mediastinal and hilar adenopathy compress the left lower lobe bronchus causing left lower lobe atelectasis. 3. Large left pleural effusion. 4. Pulmonary centrilobular emphysema. Const General: cooperative, disheveled and ill appearing Orientation: oriented x3 [facility] Head: normal to inspection Ears: hearing grossly normal bilaterally Eyes Conjunctivae: conjunctival abnormality Pupils: PERRL Neck Neck: normal visual inspection Resp Effort & Inspection: abnormal respiratory pattern, audible wheezes, cough and labored Auscultation: abnormal I/E ratio, rales and wheezes Cardio Heart Sounds: murmur Other: faint GI Palpation: soft Auscultation: normal bowel sounds Skin General skin exam: pallor Psych Appearance: disheveled Results Last Vital Signs Temp 98.6 F 06/29/19 10:13 Pulse 80 06/29/19 11:27 Resp 18 06/29/19 11:27 BP 112/68 06/29/19 10:13 Pulse Ox 94 L 06/29/19 11:30 Labs Result diagrams: 06/30/19 06:34 06/30/19 06:34 Labs: Laboratory Results - last 24 hr 06/29/19 06/29/19 06/29/19 04:50 04:50 04:50 WBC 8.94 RBC 5.05 Hgb 16.4 Hct 48.8 MCV 96.6 H MCH 32.5 MCHC 33.6 RDW 13.8 Plt Count 195 MPV 10.9 Immature Gran % 0.2 Neutrophils % 72.6 Lymphocytes % 16.1 Monocytes % 10.4 Eosinophils % 0.6 Basophils % 0.1 Absolute Neutrophils 6.49 Absolute Lymphocytes 1.44 Absolute Monocytes 0.93 H Absolute Eosinophils 0.05 Absolute Basophils 0.01 PT INR APTT VBG pH VBG pCO2 VBG pO2 VBG HCO3 VBG Total CO2 VBG O2 Saturation VBG Base Excess Sodium 140 Potassium 3.6 Chloride 99 Carbon Dioxide 30.7 Anion Gap 10.3 BUN 27 H Creatinine 1.38 H Estimated GFR/1.73 m2 52.21 Glucose 103 Lactate 3.2 H* Calcium 10.3 H Total Bilirubin 0.7 AST 66 H ALT 91 H Alkaline Phosphatase 109 Lactate Dehydrogenase Troponin I < 0.05 NT-Pro-B Natriuret Pep 113 Total Protein 7.5 Albumin 3.5 Lipase 107 TSH 0.64 Patient ABO/Rh Antibody Screen 06/29/19 06/29/19 06/29/19 04:50 04:50 06:30 WBC RBC Hgb Hct MCV MCH MCHC RDW Plt Count MPV Immature Gran % Neutrophils % Lymphocytes % Monocytes % Eosinophils % Basophils % Absolute Neutrophils Absolute Lymphocytes Absolute Monocytes Absolute Eosinophils Absolute Basophils PT 10.7 INR 1.1 APTT 29.3 VBG pH 7.41 VBG pCO2 49 H VBG pO2 37 VBG HCO3 32 H VBG Total CO2 27 VBG O2 Saturation 71 VBG Base Excess 6.9 H Sodium Potassium Chloride Carbon Dioxide Anion Gap BUN Creatinine Estimated GFR/1.73 m2 Glucose Lactate 3.8 H* Calcium Total Bilirubin AST ALT Alkaline Phosphatase Lactate Dehydrogenase Troponin I NT-Pro-B Natriuret Pep Total Protein Albumin Lipase TSH Patient ABO/Rh Antibody Screen 06/29/19 06/29/19 06/29/19 06:30 07:50 13:46 WBC RBC Hgb Hct MCV MCH MCHC RDW Plt Count MPV Immature Gran % Neutrophils % Lymphocytes % Monocytes % Eosinophils % Basophils % Absolute Neutrophils Absolute Lymphocytes Absolute Monocytes Absolute Eosinophils Absolute Basophils PT INR APTT VBG pH VBG pCO2 VBG pO2 VBG HCO3 VBG Total CO2 VBG O2 Saturation VBG Base Excess Sodium Potassium Chloride Carbon Dioxide Anion Gap BUN Creatinine Estimated GFR/1.73 m2 Glucose Lactate Calcium Total Bilirubin AST ALT Alkaline Phosphatase Lactate Dehydrogenase 349 H Troponin I < 0.05 NT-Pro-B Natriuret Pep Total Protein Albumin Lipase TSH Patient ABO/Rh B Positive Antibody Screen Negative
[2019-06-29] MEDS: predniSONE 20 MG TAB 60 MG PO (14:45)
[2019-06-29] MEDS: Tiotropium Bromide-Respimat 10 PUFF INH 2 PUFF IH (16:07)
--- NOTE | 2019-06-29 17:06 | PHA.ADMREV ---
<Ollie Goodrich III - Last Filed: 06/29/19 17:06> Pharmacy Clinical Review - Admission Clinical Review (Last Reviewed 06/29/19 @ 13:39 by Saw Berg) Pleural effusion (Acute) Abdominal lymphadenopathy (Acute) Mediastinal adenopathy (Acute) Lung mass (Acute) COPD exacerbation (Acute) Respiratory distress (Acute) Sulfa (Sulfonamide Antibiotics) Adverse Reaction (Intermediate, Verified 06/22/19 11:03) Itching Height 5 ft 6 in Weight 80.4 kg - Renal Dosing Renal Dosing: BUN 27 mg/dL (7-18) H 06/29/19 04:50 Creatinine 1.38 mg/dL (0.70-1.30) H 06/29/19 04:50 Medications needing adjustments: Reviewed (CrCl~ 50 mL/min) - Anticoagulation Anticoagulation: Hgb 16.4 g/dL (13.5-17.5) 06/29/19 04:50 Hct 48.8 % (40.0-50.0) 06/29/19 04:50 Plt Count 195 x1000/uL (130-400) 06/29/19 04:50 INR 1.1 (0.9-1.1) 06/29/19 04:50 Creatinine 1.38 mg/dL (0.70-1.30) H 06/29/19 04:50 - Relevant Labs Sodium 140 mmol/L (136-145) 06/29/19 04:50 Potassium 3.6 mmol/L (3.5-5.1) 06/29/19 04:50 Chloride 99 mmol/L (98-107) 06/29/19 04:50 - DM Control DM Control: Glucose 103 mg/dL (74-106) 06/29/19 04:50 - Heart Failure/MO Heart Failure/MO: Troponin I < 0.05 ng/Ml (<0.06) 06/29/19 07:50 NT-Pro-B Natriuret Pep 113 pg/mL (<300) 06/29/19 04:50 - BP Control BP Control: Blood Pressure 110/61 Blood Pressure 112/68 Blood Pressure 99/53 Blood Pressure 111/54 Blood Pressure 114/63 Blood Pressure 101/62 Blood Pressure 128/65 Blood Pressure 119/65 Blood Pressure 124/71 Blood Pressure 131/70 Blood Pressure 85/68 Blood Pressure 113/56 Blood Pressure 111/74 Blood Pressure 123/64 <Claire Christina - Last Filed: 07/01/19 14:39> Pharmacy Clinical Review - Admission Clinical Review (Last Reviewed 06/29/19 @ 13:39 by Saw Berg) Dehydration (Acute) Discharge planning issues (Acute) Limited code status (Acute) Pleural effusion (Acute) Abdominal lymphadenopathy (Acute) Mediastinal adenopathy (Acute) Lung mass (Acute) COPD exacerbation (Acute) Respiratory distress (Acute) Sulfa (Sulfonamide Antibiotics) Adverse Reaction (Intermediate, Verified 06/22/19 11:03) Itching Height 5 ft 6 in Weight 80.2 kg - Renal Dosing Renal Dosing: BUN 26 mg/dL (7-18) H 07/01/19 06:20 Creatinine 1.00 mg/dL (0.70-1.30) 07/01/19 06:20 Medications needing adjustments: Reviewed - Anticoagulation Anticoagulation: Hgb 15.0 g/dL (13.5-17.5) 07/01/19 06:20 Hct 45.1 % (40.0-50.0) 07/01/19 06:20 Plt Count 175 x1000/uL (130-400) 07/01/19 06:20 INR 1.1 (0.9-1.1) 06/29/19 04:50 Creatinine 1.00 mg/dL (0.70-1.30) 07/01/19 06:20 DVT Prohphylaxis: Reviewed Medications: Heparin Therapeutic Anticoagulation: N/A - Opiate Usage Evaluate Pain Scale/Pains Meds: Reviewed (06/25) Scheduled Bowel Reg ordered if on Opiates?: No (PRN) - Relevant Labs Sodium 140 mmol/L (136-145) 07/01/19 06:20 Potassium 3.7 mmol/L (3.5-5.1) 07/01/19 06:20 Chloride 103 mmol/L (98-107) 07/01/19 06:20 Magnesium 2.1 mg/dL (1.8-2.4) 07/01/19 06:20 Electrolytes, C-Reactive P, ESR: Reviewed - Antimicrobial Stewardship Antibiotic appropriateness: N/A Surgical Abx d/c within 24 hr: N/A Culture review/Resistance: N/A - DM Control DM Control: Glucose 81 mg/dL (74-106) 07/01/19 06:20 Insulin Dosing: N/A - Heart Failure/MO Heart Failure/MO: Troponin I < 0.05 ng/Ml (<0.06) 06/29/19 07:50 NT-Pro-B Natriuret Pep 113 pg/mL (<300) 06/29/19 04:50 EF%, CHAVEZ's, B-Blockers, Diuretics: N/A - BP Control BP Control: Blood Pressure 139/75 Blood Pressure 110/67 Blood Pressure 116/70 If elevated: N/A - QTc Review If Elevated: N/A - IV to PO Switch IV Medications: Reviewed (IVP lasix) - Home Meds Home Med List reviewed: Reviewed - Current meds Current Medication Order Review: Reviewed (not ordered : apixaban)
[2019-06-29 17:09] LABS: Bilirubin Negative (Negative); Blood Negative (Negative); Clarity Clear (Clear); Glucose Negative (Negative); Ketones Negative (Negative); Leukocyte Esterase Negative (Negative); Nitrite Negative (Negative); Specific Gravity 1.015 (1.005-1.025); Urobilinogen 0.2 EU/dL (Up TO 0.2)
[2019-06-29] MEDS: Finasteride 5 MG TAB PO (19:37)
[2019-06-29] MEDS: Budesonide/Formoterol 160/4.5 6 GM 60 PUFF INH IH (19:37)
[2019-06-30] VITALS (13 sets, daily range): BP systolic 106–131; BP diastolic 62–80; PULSE 62–84; RESP 4–24; TEMP 36.3–37; O2SAT 93–96
[2019-06-30] MEDS: Albuterol/Ipratropium 3 ML UPD VIAL UPD ×4 (05:22→23:49)
[2019-06-30] MEDS: Lactated Ringers 1,000 ML 100 ML IV ×2 (05:22→15:38)
[2019-06-30 06:54] LABS: Abs Immature Grans 0.03 k/cumm (0.0-0.09); Absolute Basophil Count 0.01 k/cumm (0.0-0.2); Absolute Eosinophil Count 0.01 k/cumm (0.0-0.7); Absolute Lymphocyte Count 0.97 k/cumm (1.2-3.4); Absolute Monocyte Count 1.01 k/cumm (0.11-0.7); Basophils % 0.1; Eosinophils % 0.1; HCT 43.4 % (40.0-50.0); HGB 14.5 g/dL (13.5-17.5); Immature Grans % 0.3 %; Lymphocytes % 8.7; Mean Corp. HGB Concentration 33.4 g/dL (32.0-36.0); Mean Corpuscular Hemoglobin 32.7 pg (27.0-33.0); Mean Platelet Volume 10.5 fL (8.0-11.0); Monocytes % 9.1; Neutrophils % 81.7; Platelet Count 170 x1000/uL (130-400); RBC 4.43 m/cumm (4.50-6.00); RBC Distribution Width 13.8 % (11.8-14.1); White Blood Cell Count 11.13 k/cumm (4.4-10.8)
[2019-06-30 06:58] LABS: Absolute Neutrophil Count 9.09 k/cumm (1.2-6.7)
[2019-06-30 07:06] LABS: Anion Gap 6.5 mmol/L (3-11); BUN 23 mg/dL (7-18); CO2 28.5 mmol/L (21.0-32.0); CREATININE 1.09 mg/dL (0.70-1.30); Chloride 104 mmol/L (98-107); Glucose 113 mg/dL (74-106); Potassium 3.7 mmol/L (3.5-5.1); Sodium 139 mmol/L (136-145)
[2019-06-30] MEDS: predniSONE 20 MG TAB 60 MG PO (08:17)
[2019-06-30] MEDS: Tiotropium Bromide-Respimat 10 PUFF INH 2 PUFF IH (08:28)
--- NOTE | 2019-06-30 08:28 | RESPIRATORY ---
In talking to patient, he stated he doesn't normally have or wear home oxygen. He feels overtime he's going to need it if not on discharge from the hospital.
--- NOTE | 2019-06-30 08:32 | INITIAL_ITS ---
- If Service Date Differs Date of service: 06/30/19 Time of Service: 08:32 Care Management Initial Assess REASON FOR HOSPITALIZATION:: New lung mass, adenopathy, dyspnea PAST MEDICAL HISTORY/PAST SURGICAL HISTORY:: Osteoarthritis bilateral hips, mitral valve prolaspe, depression, chrohns disease. Surgical hx: Hernia repair, tonsilectomy and right total hip 2013. PREVIOUS FUNCTIONAL STATUS/SOCIAL/FAMILY SUPPORTS:: Isra lives alone in [place], [place]. He attends Adult day at [facility] 4 days a week. He reports he receives care at the [facility], clinic. He has a asset management coordinator at the [place] and is familer with RN CCC at the clinic. He does have [facility] for [facility], a community nurse Breann Major and a sister Mariluz who his his DPOA. Isra uses [facility] for all transportation. CURRENT FUNCTIONAL STATUS:: Alert, sitting up in the chair. Isra states I want to know if I am going to live or . [facility] not [facility] home first. Isra states that he is unable to ambulate due to numbness and swelling in his legs and does not feel that he would be able to care for himself at home. He is open to the discussion of SNF placement if he needs it and is not transfered to a [facility]. Isra states he was using tobacco until he was admitted, he does have a replacment nicotrol he reports he is unable to wear the patch due to rash. Isra states he does not use Cannabis however he has consider it for pain control. Isra states he gave his dog away yesterday due to concerns that he will not be able to care for him. He reports having the dog for 12 years. He also has a cat at home the neighbor is caring for. Isra is preparing to not return home and he states I just want to know what is going to happen. did consult for palliative care and will continue to follow. ADVANCE DIRECTIVES:: Pateint reports he does have them and his sister Mrailuz is his DPOA. Has patient been provided with information about the portal?: Yes Did the patient sign up for the portal?: No (already enrolled ) CODE STATUS:: DNR/DNI INSURANCE COVERAGE / FINANCIAL ISSUES:: Medicare and Medicaid CURRENT HOME/COMMUNITY SERVICES/EQUIPMENT:: [employer] for care, Breann Major, Adult day services, [facility] for transportation, and [place] housing support Shayla is the correctional counselor/case manager. He also has meals on wheels. PRIMARY CARE PHYSICIAN:: LILIANA Jaquez POTENTIAL DISCHARGE NEEDS:: Pending disposition PATIENT/FAMILY EDUCATION NEEDS:: Discharge edcuation, limitations and follow up plan of care including ask me three and self management. ANTICIPATED BARRIERS TO DISCHARGE:: Pending transfer and bed availability. Patient does not feel he could care for himself at home right now. TRANSPORTATION:: Pending disposition. PLAN:: Isra will be transfered when bed available to the [place] vs other tertiary center. Palliative will continue to follow inpatient and outpatient. CM to continue to assess for ongoing discharge needs and supports.
[2019-06-30] MEDS: Budesonide/Formoterol 160/4.5 6 GM 60 PUFF INH IH ×2 (10:09→19:29)
--- NOTE | 2019-06-30 16:59 | PCPN_ITS ---
Date of service: 06/30/19 Time of Service: 14:59 Assessment and Plan Assessment and plan (1) Pleural effusion: Status: Acute Assessment and plan: thorocentesis yesterday (2) Abdominal lymphadenopathy: Status: Acute (3) Mediastinal adenopathy: Status: Acute (4) DVT (deep venous thrombosis): Status: Chronic Qualifiers: DVT location: lower extremity Affected thrombotic vein of extremity: unspecified vein of extremity Chronicity: chronic Laterality: bilateral Qualified Code(s): I82.503 - Chronic embolism and thrombosis of unspecified deep veins of lower extremity, bilateral (5) Discharge planning issues: Status: Acute Assessment and plan: Yesterday he was at odds regarding further treatment etc. Today with the help of his sister he does state clearly that he does want [facility] and find out what his problem is and more importantly what can be done about it. He again reiterates that he does not want to be intubated. He is set against CPR for himself. But he would want a work-up to find out what is going on in his lungs and if this is treatable. He did complete his COLST yesterday and he has a DNR I did speak with hospitalist Dr. Smith. She will arrange [facility] transfer when possible. I have spent more than 50% of time in counseling with this patient. This document was created by [employer] and may contain grammatical and translation errors. Subjective Subjective Interval history since last seen: Kody is sitting up in his chair. He recently finished his lunch. He states that he is feeling much better today. His breathing is better. His sister from [place] has arrived here. She again reiterates that she was called and told that he had stage IV cancer. She drove up over the last 15 hours. Kody is quite confused about all the different information that he is gotten it is hard for him to process it. His sister has a nursing background. She understands the importance of getting a diagnosis and then determining treatment. Exam Narrative Exam Narrative: Kody is sitting in a chair. His breathing is considerably better. There is not audible wheezing. He does not look as disheveled as he did yesterday, but still very confused. Objective Objective Clinical Data: Abnormal lab results 06/30/19 06/30/19 Range/Units 06:34 06:34 WBC 11.13 H (4.4-10.8) k/cumm RBC 4.43 L (4.50-6.00) m/cumm MCV 98.0 H (80-95) fL Absolute Neutrophils 9.09 H (1.2-6.7) k/cumm Absolute Lymphocytes 0.97 L (1.2-3.4) k/cumm Absolute Monocytes 1.01 H (0.11-0.7) k/cumm BUN 23 H (7-18) mg/dL Glucose 113 H (74-106) mg/dL Vital Signs Temperature 98.6 F 06/30/19 16:27 Temperature Source Tympanic 06/30/19 16:27 Pulse 70 06/30/19 16:27 Pulse Rhythm Regular 06/30/19 15:20 Pulse 84 06/29/19 09:10 Respiratory Rate 20 06/30/19 16:27 Respiratory Effort 06/30/19 15:20 Respiratory Depth Shallow 06/30/19 15:20 Respiratory Pattern Normal 06/30/19 15:20 Blood Pressure 109/68 06/30/19 16:27 Blood Pressure Mean 65 06/29/19 09:01 Blood Pressure Position Supine 06/29/19 04:23 Pulse Oximetry 93 L 06/30/19 16:27 Oxygen Delivery Method Nasal Cannula 06/30/19 16:27 Oxygen Flow Rate 2 06/30/19 16:27 Pain Level 0 06/30/19 16:27 Intake & Output 06/29/19 06/30/19 06/30/19 23:59 11:59 23:59 Intake Total 1083.333 / 3183.333 1653.333 / 3013.333 1360 / 3013.333 Output Total 700 / 700 250 / 550 300 / 550 Balance 383.333 / 2483.333 1403.333 / 2463.333 1060 / 2463.333 Intake: IV 833.333 / 2933.333 973.333 / 7816.706 2287 / 1972.333 Oral 250 / 250 680 / 1040 360 / 1040 Output: Urine 700 / 700 250 / 550 300 / 550 Other: Urine Color Light Irma Light Irma Dark Irma Urine Appearance Clear Clear Clear Stool Size Small Stool Characteristics Soft Laboratory Results WBC 11.13 k/cumm (4.4-10.8) H 06/30/19 06:34 RBC 4.43 m/cumm (4.50-6.00) L 06/30/19 06:34 Hgb 14.5 g/dL (13.5-17.5) 06/30/19 06:34 Hct 43.4 % (40.0-50.0) 06/30/19 06:34 MCV 98.0 fL (80-95) H 06/30/19 06:34 MCH 32.7 pg (27.0-33.0) 06/30/19 06:34 MCHC 33.4 g/dL (32.0-36.0) 06/30/19 06:34 RDW 13.8 % (11.8-14.1) 06/30/19 06:34 Plt Count 170 x1000/uL (130-400) 06/30/19 06:34 MPV 10.5 fL (8.0-11.0) 06/30/19 06:34 Immature Gran % 0.3 % 06/30/19 06:34 Neutrophils % 81.7 06/30/19 06:34 Lymphocytes % 8.7 06/30/19 06:34 Monocytes % 9.1 06/30/19 06:34 Eosinophils % 0.1 06/30/19 06:34 Basophils % 0.1 06/30/19 06:34 Absolute Neutrophils 9.09 k/cumm (1.2-6.7) H 06/30/19 06:34 Absolute Lymphocytes 0.97 k/cumm (1.2-3.4) L 06/30/19 06:34 Absolute Monocytes 1.01 k/cumm (0.11-0.7) H 06/30/19 06:34 Absolute Eosinophils 0.01 k/cumm (0.0-0.7) 06/30/19 06:34 Absolute Basophils 0.01 k/cumm (0.0-0.2) 06/30/19 06:34 PT 10.7 sec (9.3-11.0) 06/29/19 04:50 INR 1.1 (0.9-1.1) 06/29/19 04:50 APTT 29.3 sec (21.0-31.4) 06/29/19 04:50 VBG pH 7.41 (7.35-7.45) 06/29/19 04:50 VBG pCO2 49 mm/Hg (34-47) H 06/29/19 04:50 VBG pO2 37 mm/Hg (28-44) 06/29/19 04:50 VBG HCO3 32 mmol/L (22-28) H 06/29/19 04:50 VBG Total CO2 27 mmol/L (22-29) 06/29/19 04:50 VBG O2 Saturation 71 % (70-80) 06/29/19 04:50 VBG Base Excess 6.9 mmol/L (-3-3) H 06/29/19 04:50 Sodium 139 mmol/L (136-145) 06/30/19 06:34 Potassium 3.7 mmol/L (3.5-5.1) 06/30/19 06:34 Chloride 104 mmol/L (98-107) 06/30/19 06:34 Carbon Dioxide 28.5 mmol/L (21.0-32.0) 06/30/19 06:34 Anion Gap 6.5 mmol/L (3-11) 06/30/19 06:34 BUN 23 mg/dL (7-18) H 06/30/19 06:34 Creatinine 1.09 mg/dL (0.70-1.30) 06/30/19 06:34 Estimated GFR/1.73 m2 >= 60.00 (mL/min/1.73m2) 06/30/19 06:34 Glucose 113 mg/dL (74-106) H 06/30/19 06:34 Lactate 3.8 mmol/L (0.6-1.4) H* 06/29/19 06:30 Calcium 10.0 mg/dL (8.5-10.1) 06/30/19 06:34 Total Bilirubin 0.7 mg/dL (0.2-1.0) 06/29/19 04:50 AST 66 U/L (15-37) H 06/29/19 04:50 ALT 91 U/L (16-63) H 06/29/19 04:50 Alkaline Phosphatase 109 U/L (46-116) 06/29/19 04:50 Lactate Dehydrogenase Cancelled 06/29/19 13:46 Troponin I < 0.05 ng/Ml (<0.06) 06/29/19 07:50 NT-Pro-B Natriuret Pep 113 pg/mL (<300) 06/29/19 04:50 Total Protein 7.5 g/dL (6.4-8.2) 06/29/19 04:50 Albumin 3.5 g/dL (3.4-5.0) 06/29/19 04:50 Lipase 107 U/L (73-393) 06/29/19 04:50 TSH 0.64 uIU/mL (0.36-3.74) 06/29/19 04:50 Urine Color Yellow (Yellow) 06/29/19 16:30 Urine Clarity Clear (Clear) 06/29/19 16:30 Urine pH 6.0 (5-8) 06/29/19 16:30 Ur Specific [place] 1.015 (1.005-1.025) 06/29/19 16:30 Urine Protein Negative mg/dL (Negative) 06/29/19 16:30 Urine Ketones Negative mg/dL (Negative) 06/29/19 16:30 Urine Blood Negative (Negative) 06/29/19 16:30 Urine Nitrite Negative (Negative) 06/29/19 16:30 Urine Bilirubin Negative (Negative) 06/29/19 16:30 Urine Urobilinogen 0.2 EU/dL (Up TO 0.2) 06/29/19 16:30 Ur Leukocyte Esterase Negative (Negative) 06/29/19 16:30 Urine Glucose Negative mg/dL (Negative) 06/29/19 16:30 Patient ABO/Rh B Positive 06/29/19 06:30 Antibody Screen Negative 06/29/19 06:30
[2019-06-30 17:51] LABS: Protein,Total, BF 4.2 g/dL
--- NOTE | 2019-06-30 18:03 | W.PM.PROGNOT ---
Date of Service Date of service: 06/30/19 Time of Service: 18:04 Assessment and Plan Assessment and plan (1) COPD exacerbation: Status: Acute Assessment and plan: Mild. Continue PO steroids, scheduled and prn nebs. (2) Mediastinal adenopathy: Status: Acute Assessment and plan: Suspicious for cancer/lymphoma. May require CT-guided bx, but for now awaiting pleural fluid studies. Attempted to transfer to the [place] as per patient's request - no beds available today. Will re-attempt on Tuesday; await pathology results. (3) Abdominal lymphadenopathy: Status: Acute Assessment and plan: As above (4) Pleural effusion: Status: Acute Assessment and plan: s/p thoracenthesis. Await pathology studies. (5) Dehydration: Status: Acute Assessment and plan: Resolved. D/c IV fluids. (6) DVT (deep venous thrombosis): Status: Chronic Assessment and plan: Resume eliquis. Obtain venous dopplers for tomorrow - consider switching to lovenox. Qualifiers: DVT location: lower extremity Affected thrombotic vein of extremity: unspecified vein of extremity Chronicity: chronic Laterality: bilateral Qualified Code(s): I82.503 - Chronic embolism and thrombosis of unspecified deep veins of lower extremity, bilateral (7) Discharge planning issues: Status: Acute Assessment and plan: DNR/DNI Await bed at the [place] Subjective Subjective Interval history since last seen: Mr Mao states he is having L mid-lower abdominal pain which did get relieved a little bit when he had a BM today. Denies dizziness, chest pain, nausea. BM this am was soft. States that his cough has been nonproductive. Sister arrived today - decision was made together to transfer to the [place] hospital. Unfortunately, [facility] not [facility] this weekend. Exam Narrative Exam Narrative: General: Very pleasant middle-aged male, sitting comfortably in a chair, A&Ox3 HEENT: EOMI, MMM Heart: RRR, no m/r/g Lungs: diminished at L base; R lung - CTA Abdomen: soft, tender in L mid abdomen, ?distended, + BS Extremities: 2+ BLE edema, L>R, chronic venous stasis dermatitis Objective Objective Clinical Data: Abnormal lab results 06/30/19 06/30/19 Range/Units 06:34 06:34 WBC 11.13 H (4.4-10.8) k/cumm RBC 4.43 L (4.50-6.00) m/cumm MCV 98.0 H (80-95) fL Absolute Neutrophils 9.09 H (1.2-6.7) k/cumm Absolute Lymphocytes 0.97 L (1.2-3.4) k/cumm Absolute Monocytes 1.01 H (0.11-0.7) k/cumm BUN 23 H (7-18) mg/dL Glucose 113 H (74-106) mg/dL Vital Signs Temperature 37.0 C 06/30/19 16:27 Temperature Source Tympanic 06/30/19 16:27 Pulse 70 06/30/19 16:27 Pulse Rhythm Regular 06/30/19 15:20 Pulse 84 06/29/19 09:10 Respiratory Rate 20 06/30/19 16:27 Respiratory Effort 06/30/19 15:20 Respiratory Depth Shallow 06/30/19 15:20 Respiratory Pattern Normal 06/30/19 15:20 Blood Pressure 109/68 06/30/19 16:27 Blood Pressure Mean 65 06/29/19 09:01 Blood Pressure Position Supine 06/29/19 04:23 Pulse Oximetry 93 L 06/30/19 16:27 Oxygen Delivery Method Nasal Cannula 06/30/19 16:27 Oxygen Flow Rate 2 06/30/19 16:27 Pain Level 0 06/30/19 16:27 Intake & Output 06/29/19 06/30/19 06/30/19 23:59 11:59 23:59 Intake Total 1083.333 / 3183.333 1653.333 / 3013.333 1360 / 3013.333 Output Total 700 / 700 250 / 550 300 / 550 Balance 383.333 / 2483.333 1403.333 / 2463.333 1060 / 2463.333 Intake: IV 833.333 / 2933.333 973.333 / 6248.881 9239 / 1972.333 Oral 250 / 250 680 / 1040 360 / 1040 Output: Urine 700 / 700 250 / 550 300 / 550 Other: Urine Color Light Irma Light Irma Dark Irma Urine Appearance Clear Clear Clear Stool Size Small Stool Characteristics Soft Laboratory Results WBC 11.13 k/cumm (4.4-10.8) H 06/30/19 06:34 RBC 4.43 m/cumm (4.50-6.00) L 06/30/19 06:34 Hgb 14.5 g/dL (13.5-17.5) 06/30/19 06:34 Hct 43.4 % (40.0-50.0) 06/30/19 06:34 MCV 98.0 fL (80-95) H 06/30/19 06:34 MCH 32.7 pg (27.0-33.0) 06/30/19 06:34 MCHC 33.4 g/dL (32.0-36.0) 06/30/19 06:34 RDW 13.8 % (11.8-14.1) 06/30/19 06:34 Plt Count 170 x1000/uL (130-400) 06/30/19 06:34 MPV 10.5 fL (8.0-11.0) 06/30/19 06:34 Immature Gran % 0.3 % 06/30/19 06:34 Neutrophils % 81.7 06/30/19 06:34 Lymphocytes % 8.7 06/30/19 06:34 Monocytes % 9.1 06/30/19 06:34 Eosinophils % 0.1 06/30/19 06:34 Basophils % 0.1 06/30/19 06:34 Absolute Neutrophils 9.09 k/cumm (1.2-6.7) H 06/30/19 06:34 Absolute Lymphocytes 0.97 k/cumm (1.2-3.4) L 06/30/19 06:34 Absolute Monocytes 1.01 k/cumm (0.11-0.7) H 06/30/19 06:34 Absolute Eosinophils 0.01 k/cumm (0.0-0.7) 06/30/19 06:34 Absolute Basophils 0.01 k/cumm (0.0-0.2) 06/30/19 06:34 PT 10.7 sec (9.3-11.0) 06/29/19 04:50 INR 1.1 (0.9-1.1) 06/29/19 04:50 APTT 29.3 sec (21.0-31.4) 06/29/19 04:50 VBG pH 7.41 (7.35-7.45) 06/29/19 04:50 VBG pCO2 49 mm/Hg (34-47) H 06/29/19 04:50 VBG pO2 37 mm/Hg (28-44) 06/29/19 04:50 VBG HCO3 32 mmol/L (22-28) H 06/29/19 04:50 VBG Total CO2 27 mmol/L (22-29) 06/29/19 04:50 VBG O2 Saturation 71 % (70-80) 06/29/19 04:50 VBG Base Excess 6.9 mmol/L (-3-3) H 06/29/19 04:50 Sodium 139 mmol/L (136-145) 06/30/19 06:34 Potassium 3.7 mmol/L (3.5-5.1) 06/30/19 06:34 Chloride 104 mmol/L (98-107) 06/30/19 06:34 Carbon Dioxide 28.5 mmol/L (21.0-32.0) 06/30/19 06:34 Anion Gap 6.5 mmol/L (3-11) 06/30/19 06:34 BUN 23 mg/dL (7-18) H 06/30/19 06:34 Creatinine 1.09 mg/dL (0.70-1.30) 06/30/19 06:34 Estimated GFR/1.73 m2 >= 60.00 (mL/min/1.73m2) 06/30/19 06:34 Glucose 113 mg/dL (74-106) H 06/30/19 06:34 Lactate 3.8 mmol/L (0.6-1.4) H* 06/29/19 06:30 Calcium 10.0 mg/dL (8.5-10.1) 06/30/19 06:34 Total Bilirubin 0.7 mg/dL (0.2-1.0) 06/29/19 04:50 AST 66 U/L (15-37) H 06/29/19 04:50 ALT 91 U/L (16-63) H 06/29/19 04:50 Alkaline Phosphatase 109 U/L (46-116) 06/29/19 04:50 Lactate Dehydrogenase Cancelled 06/29/19 13:46 Troponin I < 0.05 ng/Ml (<0.06) 06/29/19 07:50 NT-Pro-B Natriuret Pep 113 pg/mL (<300) 06/29/19 04:50 Total Protein 7.5 g/dL (6.4-8.2) 06/29/19 04:50 Albumin 3.5 g/dL (3.4-5.0) 06/29/19 04:50 Lipase 107 U/L (73-393) 06/29/19 04:50 TSH 0.64 uIU/mL (0.36-3.74) 06/29/19 04:50 Urine Color Yellow (Yellow) 06/29/19 16:30 Urine Clarity Clear (Clear) 06/29/19 16:30 Urine pH 6.0 (5-8) 06/29/19 16:30 Ur Specific [place] 1.015 (1.005-1.025) 06/29/19 16:30 Urine Protein Negative mg/dL (Negative) 06/29/19 16:30 Urine Ketones Negative mg/dL (Negative) 06/29/19 16:30 Urine Blood Negative (Negative) 06/29/19 16:30 Urine Nitrite Negative (Negative) 06/29/19 16:30 Urine Bilirubin Negative (Negative) 06/29/19 16:30 Urine Urobilinogen 0.2 EU/dL (Up TO 0.2) 06/29/19 16:30 Ur Leukocyte Esterase Negative (Negative) 06/29/19 16:30 Urine Glucose Negative mg/dL (Negative) 06/29/19 16:30 Patient ABO/Rh B Positive 06/29/19 06:30 Antibody Screen Negative 06/29/19 06:30
[2019-06-30] MEDS: Finasteride 5 MG TAB PO (19:29)
[2019-06-30] MEDS: Apixaban 5 MG TAB 2.5 MG PO (19:29)
[2019-07-01] VITALS (13 sets, daily range): BP systolic 105–139; BP diastolic 65–75; PULSE 70–83; RESP 1–20; TEMP 36.7–37; O2SAT 91–97
--- NOTE | 2019-07-01 05:35 | DI.US_ITS ---
EXAM: US EXTREMITY VENOUS BI CLINICAL HISTORY: follow up DVT. TECHNIQUE: Bilateral lower extremity venous ultrasound performed using grayscale, color-flow, and sp ectral Doppler analysis. COMPARISON: No exams were available for comparison FINDINGS: The bilateral common femoral, femoral and popliteal veins demonstrate normal compressibility, augment ation, and color Doppler. The posterior tibial veins are patent. The saphenofemoral junctions are unr emarkable. There is no evidence of a Tavarez's cyst. The soft tissues are unremarkable. IMPRESSION: Right: Negative for DVT Left: Negative for DVT DATA REPOSITORY:
[2019-07-01] MEDS: Albuterol/Ipratropium 3 ML UPD VIAL UPD ×4 (05:50→23:42)
[2019-07-01 06:54] LABS: Abs Immature Grans 0.03 k/cumm (0.0-0.09); Absolute Eosinophil Count 0.04 k/cumm (0.0-0.7); Absolute Lymphocyte Count 0.98 k/cumm (1.2-3.4); Absolute Monocyte Count 0.79 k/cumm (0.11-0.7); Eosinophils % 0.4; HCT 45.1 % (40.0-50.0); Immature Grans % 0.3 %; Lymphocytes % 10.1; Mean Corp. HGB Concentration 33.3 g/dL (32.0-36.0); Mean Corpuscular Hemoglobin 32.8 pg (27.0-33.0); Mean Corpuscular Volume 98.5 fL (80-95); Mean Platelet Volume 10.6 fL (8.0-11.0); Monocytes % 8.1; Neutrophils % 81.1; Platelet Count 175 x1000/uL (130-400); RBC 4.58 m/cumm (4.50-6.00); White Blood Cell Count 9.74 k/cumm (4.4-10.8)
[2019-07-01 07:07] LABS: Anion Gap 7.9 mmol/L (3-11); BUN 26 mg/dL (7-18); CO2 29.1 mmol/L (21.0-32.0); Calcium 10.6 mg/dL (8.5-10.1); Chloride 103 mmol/L (98-107); Glucose 81 mg/dL (74-106); Magnesium 2.1 mg/dL (1.8-2.4); Potassium 3.7 mmol/L (3.5-5.1); Sodium 140 mmol/L (136-145)
[2019-07-01] MEDS: Apixaban 5 MG TAB 2.5 MG PO (08:08)
[2019-07-01] MEDS: Pantoprazole 40 MG TABCR PO (08:08)
[2019-07-01] MEDS: traMADol 50 MG TAB PO (08:09)
[2019-07-01] MEDS: predniSONE 20 MG TAB 60 MG PO (08:09)
[2019-07-01] MEDS: Budesonide/Formoterol 160/4.5 6 GM 60 PUFF INH IH ×2 (10:08→20:12)
--- NOTE | 2019-07-01 10:19 | DI.VRAD_ITS ---
PROCEDURE INFORMATION: Exam: US Duplex Lower Extremity Veins Exam date and time: 07/01/2019 10:02 AM Age: 64 years old Clinical indication: Other: Follow up dvt (pt had left leg dvt on 2016 study, currently asymptomatic now) TECHNIQUE: Imaging protocol: Real-time duplex ultrasound of the Lower Extremities with 2-D brown scale, color Doppler flow and spectral waveform analysis with image documentation. Complete exam focused on the bilateral lower extremity veins. COMPARISON: US lower extremity venous RT 08/31/2018 9:52 AM FINDINGS: Right deep veins: No deep venous thrombosis in the visualized right common femoral, profunda femorals, superficial femoral, popliteal, or posterior tibial veins. Right superficial veins: Saphenofemoral junction is patent without thrombus. Left deep veins: No deep venous thrombosis in the visualized left common femoral, profunda femorals, superficial femoral, popliteal, or posterior tibial veins. Left superficial veins: Saphenofemoral junction is patent without thrombus. Soft tissues: Unremarkable. IMPRESSION: No deep venous thrombosis in the visualized bilateral lower extremities. Dictated and Authenticated by: Sumit Epps MD. Ordering:BOSSMAN Wilson MD
[2019-07-01] MEDS: Tiotropium Bromide-Respimat 10 PUFF INH 2 PUFF IH (10:57)
--- NOTE | 2019-07-01 13:49 | PGE_ITS ---
Date of Service Date of service: 07/01/19 Time of Service: 13:49 Assessment and Plan Assessment and plan (1) COPD exacerbation: Status: Acute Assessment and plan: Mild. I think today's worsening in breathing has more to do with fluid status. Continue PO steroids, scheduled and prn nebs. Start diuresis. (2) Mediastinal adenopathy: Status: Acute Assessment and plan: Suspicious for cancer/lymphoma. Awaiting results of pleuracenthesis,. May require CT-guided bx, but for now awaiting pleural fluid studies. Attempted to transfer to [place] as per patient's request - no beds available this weekend. Will re-attempt tomorrow; await pathology results. (3) Abdominal lymphadenopathy: Status: Acute Assessment and plan: As above (4) Pleural effusion: Status: Acute Assessment and plan: s/p thoracenthesis. Clinically, this has reaccumulated - will obtain stat CXR, start diuresis. May require repeat thoracenthesis. For this, d/c eliquis and transition to prophylactic heparin sc. Await pathology studies. (5) Dehydration: Status: Acute Assessment and plan: Resolved. (6) DVT (deep venous thrombosis): Status: Chronic Assessment and plan: Venous dopplers today did not reveal DVT in either LE. Transition to prophylactic heparin in anticipation of repeat thoracenthesis and possible CT-guided bx. Qualifiers: Affected thrombotic vein of extremity: unspecified vein of extremity Chronicity: chronic DVT location: lower extremity Laterality: bilateral Qualified Code(s): I82.503 - Chronic embolism and thrombosis of unspecified deep veins of lower extremity, bilateral (7) Discharge planning issues: Status: Acute Assessment and plan: DNR/DNI Await bed at the [place]. If no bed available, consider [facility] [facility] vs discharge home with outpatient follow up. Subjective Subjective Interval history since last seen: Complains of feeling more short of breath. Cough has been nonproductive. Denies dizziness, chest pain. Had nausea and dry heaving earlier today, no vomiting. Continues to report occasional L midabdominal pain. Not having any currently. Exam Narrative Exam Narrative: General: Very pleasant middle-aged male, sitting in the chair, appears mildly tachypneic HEENT: EOMI, MMM Heart: RRR, no m/r/g Lungs: expiratory wheezing; rales B bases, diminished on L Abdomen: soft, nontender, mildly distended Extremities: 2+ BLE edema, L>R, chronic venous stasis dermatitis Objective Objective Clinical Data: Abnormal lab results 07/01/19 07/01/19 Range/Units 06:20 06:20 MCV 98.5 H (80-95) fL Absolute Neutrophils 7.90 H (1.2-6.7) k/cumm Absolute Lymphocytes 0.98 L (1.2-3.4) k/cumm Absolute Monocytes 0.79 H (0.11-0.7) k/cumm BUN 26 H (7-18) mg/dL Calcium 10.6 H (8.5-10.1) mg/dL Vital Signs Temperature 36.8 C 07/01/19 11:22 Temperature Source Tympanic 07/01/19 11:22 Pulse 70 07/01/19 11:22 Pulse Rhythm Regular 07/01/19 07:50 Pulse 84 06/29/19 09:10 Respiratory Rate 18 07/01/19 11:22 Respiratory Effort 07/01/19 07:50 Respiratory Depth Shallow 07/01/19 07:50 Respiratory Pattern Normal 07/01/19 07:50 Blood Pressure 139/75 07/01/19 11:22 Blood Pressure Mean 65 06/29/19 09:01 Blood Pressure Position Supine 06/29/19 04:23 Pulse Oximetry 97 07/01/19 11:22 Oxygen Delivery Method Nasal Cannula 07/01/19 11:22 Oxygen Flow Rate 2 07/01/19 11:22 Pain Level 3 07/01/19 11:22 Intake & Output 06/30/19 07/01/19 07/01/19 23:59 11:59 23:59 Intake Total 1876.667 / 3530.000 1110 / 1110 Output Total 500 / 750 500 / 500 Balance 1376.667 / 2780.000 610 / 610 Weight 80.2 kg Intake: IV 1036.667 / 2010.000 Oral 840 / 1520 1110 / 1110 Output: Urine 500 / 750 500 / 500 Other: Urine Color Yellow Yellow Urine Appearance Clear Clear Stool Size Small Stool Characteristics Soft Laboratory Results WBC 9.74 k/cumm (4.4-10.8) 07/01/19 06:20 RBC 4.58 m/cumm (4.50-6.00) 07/01/19 06:20 Hgb 15.0 g/dL (13.5-17.5) 07/01/19 06:20 Hct 45.1 % (40.0-50.0) 07/01/19 06:20 MCV 98.5 fL (80-95) H 07/01/19 06:20 MCH 32.8 pg (27.0-33.0) 07/01/19 06:20 MCHC 33.3 g/dL (32.0-36.0) 07/01/19 06:20 RDW 14.0 % (11.8-14.1) 07/01/19 06:20 Plt Count 175 x1000/uL (130-400) 07/01/19 06:20 MPV 10.6 fL (8.0-11.0) 07/01/19 06:20 Immature Gran % 0.3 % 07/01/19 06:20 Neutrophils % 81.1 07/01/19 06:20 Lymphocytes % 10.1 07/01/19 06:20 Monocytes % 8.1 07/01/19 06:20 Eosinophils % 0.4 07/01/19 06:20 Basophils % 0.0 07/01/19 06:20 Absolute Neutrophils 7.90 k/cumm (1.2-6.7) H 07/01/19 06:20 Absolute Lymphocytes 0.98 k/cumm (1.2-3.4) L 07/01/19 06:20 Absolute Monocytes 0.79 k/cumm (0.11-0.7) H 07/01/19 06:20 Absolute Eosinophils 0.04 k/cumm (0.0-0.7) 07/01/19 06:20 Absolute Basophils 0.00 k/cumm (0.0-0.2) 07/01/19 06:20 PT 10.7 sec (9.3-11.0) 06/29/19 04:50 INR 1.1 (0.9-1.1) 06/29/19 04:50 APTT 29.3 sec (21.0-31.4) 06/29/19 04:50 VBG pH 7.41 (7.35-7.45) 06/29/19 04:50 VBG pCO2 49 mm/Hg (34-47) H 06/29/19 04:50 VBG pO2 37 mm/Hg (28-44) 06/29/19 04:50 VBG HCO3 32 mmol/L (22-28) H 06/29/19 04:50 VBG Total CO2 27 mmol/L (22-29) 06/29/19 04:50 VBG O2 Saturation 71 % (70-80) 06/29/19 04:50 VBG Base Excess 6.9 mmol/L (-3-3) H 06/29/19 04:50 Sodium 140 mmol/L (136-145) 07/01/19 06:20 Potassium 3.7 mmol/L (3.5-5.1) 07/01/19 06:20 Chloride 103 mmol/L (98-107) 07/01/19 06:20 Carbon Dioxide 29.1 mmol/L (21.0-32.0) 07/01/19 06:20 Anion Gap 7.9 mmol/L (3-11) 07/01/19 06:20 BUN 26 mg/dL (7-18) H 07/01/19 06:20 Creatinine 1.00 mg/dL (0.70-1.30) 07/01/19 06:20 Estimated GFR/1.73 m2 >= 60.00 (mL/min/1.73m2) 07/01/19 06:20 Glucose 81 mg/dL (74-106) 07/01/19 06:20 Lactate 3.8 mmol/L (0.6-1.4) H* 06/29/19 06:30 Calcium 10.6 mg/dL (8.5-10.1) H 07/01/19 06:20 Magnesium 2.1 mg/dL (1.8-2.4) 07/01/19 06:20 Total Bilirubin 0.7 mg/dL (0.2-1.0) 06/29/19 04:50 AST 66 U/L (15-37) H 06/29/19 04:50 ALT 91 U/L (16-63) H 06/29/19 04:50 Alkaline Phosphatase 109 U/L (46-116) 06/29/19 04:50 Lactate Dehydrogenase Cancelled 06/29/19 13:46 Troponin I < 0.05 ng/Ml (<0.06) 06/29/19 07:50 NT-Pro-B Natriuret Pep 113 pg/mL (<300) 06/29/19 04:50 Total Protein 7.5 g/dL (6.4-8.2) 06/29/19 04:50 Albumin 3.5 g/dL (3.4-5.0) 06/29/19 04:50 Lipase 107 U/L (73-393) 06/29/19 04:50 TSH 0.64 uIU/mL (0.36-3.74) 06/29/19 04:50 Urine Color Yellow (Yellow) 06/29/19 16:30 Urine Clarity Clear (Clear) 06/29/19 16:30 Urine pH 6.0 (5-8) 06/29/19 16:30 Ur Specific [place] 1.015 (1.005-1.025) 06/29/19 16:30 Urine Protein Negative mg/dL (Negative) 06/29/19 16:30 Urine Ketones Negative mg/dL (Negative) 06/29/19 16:30 Urine Blood Negative (Negative) 06/29/19 16:30 Urine Nitrite Negative (Negative) 06/29/19 16:30 Urine Bilirubin Negative (Negative) 06/29/19 16:30 Urine Urobilinogen 0.2 EU/dL (Up TO 0.2) 06/29/19 16:30 Ur Leukocyte Esterase Negative (Negative) 06/29/19 16:30 Urine Glucose Negative mg/dL (Negative) 06/29/19 16:30 Patient ABO/Rh B Positive 06/29/19 06:30 Antibody Screen Negative 06/29/19 06:30
--- NOTE | 2019-07-01 14:20 | DI.RAD_ITS ---
EXAM: XR PORTABLE CHEST AP CLINICAL HISTORY: worsening shortness of breath TECHNIQUE: 2D digital imaging was performed. COMPARISON: XR PORTABLE CHEST AP from 06/29/2019 FINDINGS: MEDIASTINUM: Normal. HEART: Stable cardiomegaly. PULMONARY VASCULATURE: Normal. LUNGS: Progressive opacities in the lungs, particularly on the right since 06/29/2019. PLEURAL SPACE: Bilateral pleural effusions. BONE:Degenerative changes. Right convex scoliosis. OTHER FINDINGS:Normal. IMPRESSION: Mild interval worsening of the pulmonary infiltrates since 06/29/2019. DATA REPOSITORY: RADIATION DOSE DELIVERED:
--- NOTE | 2019-07-01 14:28 | DI.VRAD_ITS ---
PROCEDURE INFORMATION: Exam: XR Chest, 1 View Exam date and time: 07/01/2019 2:17 PM Age: 64 years old Clinical indication: Shortness of breath; Patient HX: Increasing SOB TECHNIQUE: Imaging protocol: XR of the chest Views: 1 view. COMPARISON: CR XR PORTABLE CHEST AP 06/29/2019 1:20 PM FINDINGS: Lungs: Emphysematous change and interstitial prominence. Asymmetric left basilar airspace/pleural disease obscuring the left hemidiaphragm, which has mildly worsened. Pleural space: Trace right pleural effusion. Heart/Mediastinum: Cardiomegaly. Bones/joints: Scoliosis and degenerative change. IMPRESSION: Mild interval worsening in asymmetric left basilar airspace/pleural disease. Dictated and Authenticated by: Sumit Epps MD. Ordering:BOSSMAN Wilson MD
[2019-07-01] MEDS: Furosemide 20 MG/2 ML VIAL 40 MG IVP (14:35)
[2019-07-01] MEDS: Normal Saline Flush 10 ML SYR IVP (14:35)
[2019-07-01 15:54] LABS: Fluid Type PLEURAL; Lactate Dehydrogenase (LD), BF 611 U/L
[2019-07-01 16:31] LABS: Glucose, Fluid 96 mg/dL (See Note)
[2019-07-01] MEDS: Heparin 5,000 UNITS/ML VIAL 5000 UNITS SC (20:12)
[2019-07-01] MEDS: Furosemide 20 MG/2 ML VIAL IVP (20:12)
[2019-07-01] MEDS: Finasteride 5 MG TAB PO (20:12)
[2019-07-01] MEDS: Acetaminophen 325 MG TAB PO (21:57)
[2019-07-02] VITALS (8 sets, daily range): BP systolic 118–126; BP diastolic 70–78; PULSE 70–87; RESP 1–24; TEMP 36.3–37.2; O2SAT 92–99
[2019-07-02] MEDS: Albuterol/Ipratropium 3 ML UPD VIAL UPD ×3 (06:06→17:48)
[2019-07-02] MEDS: Milk of Magnesia 30 ML CUP PO (06:37)
[2019-07-02 07:15] LABS: Abs Immature Grans 0.04 k/cumm (0.0-0.09); Absolute Basophil Count 0.01 k/cumm (0.0-0.2); Absolute Eosinophil Count 0.04 k/cumm (0.0-0.7); Absolute Lymphocyte Count 0.92 k/cumm (1.2-3.4); Absolute Monocyte Count 0.77 k/cumm (0.11-0.7); Absolute Neutrophil Count 7.14 k/cumm (1.2-6.7); Basophils % 0.1; Eosinophils % 0.4; HCT 46.1 % (40.0-50.0); HGB 15.4 g/dL (13.5-17.5); Immature Grans % 0.4 %; Lymphocytes % 10.3; Mean Corp. HGB Concentration 33.4 g/dL (32.0-36.0); Mean Corpuscular Hemoglobin 32.3 pg (27.0-33.0); Mean Corpuscular Volume 96.6 fL (80-95); Mean Platelet Volume 10.8 fL (8.0-11.0); Monocytes % 8.6; Neutrophils % 80.2; Platelet Count 185 x1000/uL (130-400); RBC 4.77 m/cumm (4.50-6.00); RBC Distribution Width 14.1 % (11.8-14.1); White Blood Cell Count 8.92 k/cumm (4.4-10.8)
[2019-07-02 07:28] LABS: Anion Gap 9.6 mmol/L (3-11); BUN 25 mg/dL (7-18); CO2 28.4 mmol/L (21.0-32.0); CREATININE 1.05 mg/dL (0.70-1.30); Calcium 10.4 mg/dL (8.5-10.1); Chloride 100 mmol/L (98-107); Glucose 82 mg/dL (74-106); Potassium 3.9 mmol/L (3.5-5.1); Sodium 138 mmol/L (136-145)
[2019-07-02] MEDS: Tiotropium Bromide-Respimat 10 PUFF INH 2 PUFF IH (07:55)
[2019-07-02] MEDS: Budesonide/Formoterol 160/4.5 6 GM 60 PUFF INH IH (07:55)
[2019-07-02] MEDS: Pantoprazole 40 MG TABCR PO (08:03)
[2019-07-02] MEDS: LORazepam 2 MG/ML VIAL 1 MG IVP (08:03)
[2019-07-02] MEDS: predniSONE 20 MG TAB 60 MG PO (08:03)
[2019-07-02] MEDS: Furosemide 40 MG/4 ML VIAL IVP ×2 (08:05→16:44)
[2019-07-02] MEDS: Heparin 5,000 UNITS/ML VIAL 5000 UNITS SC (08:05)
[2019-07-02] MEDS: Normal Saline Flush 10 ML SYR IVP ×2 (08:10→16:45)
--- NOTE | 2019-07-02 10:49 | W.NUTCONSULT ---
Date of service: 07/02/19 Time of Service: 10:50 Nutritional Consult ASSESSMENT: 64 year old male admitted with SOB, dehydration. With stage 4 lung cancer, mediastinal adenopathy, COPD. Declines treatment for cancer at this time per Pallative report. Following Heart Healthy Diet with adequate intake (50-75%). BMI indicates overweight status. Labs indicate elevated BUN, treated with IV fluids. On lasix, at risk for fluid imbalances. Not at risk for nutritional decline at this time. MONITORING AND EVALUATION: weight, po intake, labs Time Spent in Nutritional Counseling and Treatment: 10 min spent face to face
[2019-07-02 14:15] LABS: LDH 322 U/L (85-227); Uric Acid 9.5 mg/dL (3.5-7.2)
[2019-07-02 14:28] LABS: ALT 103 U/L (16-63); AST 63 U/L (15-37); Alkaline Phosphatase 96 U/L (46-116); Bilirubin, Direct 0.16 mg/dL (0.00-0.20); Bilirubin, Total 0.5 mg/dL (0.2-1.0); PHOSPHORUS 3.5 mg/dL (2.6-4.7); Total Protein 6.6 g/dL (6.4-8.2)
[2019-07-02] MEDS: LORazepam 2 MG/ML VIAL 0.5 MG IVP (14:48)
--- NOTE | 2019-07-02 15:22 | W.NEUROCONSU ---
Date of service: 07/02/19 Time of Service: 15:23 History of Present Illness History of Present Illness Chief Complaint: Leg weakness and numbness Narrative: Handedness: right. HPI: Consults Requesting physician: Katie Smith [facility] Medical History 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) Anxiety (Chronic) BPH (benign prostatic hyperplasia) Cellulitis of right lower extremity without foot (Acute) Cigarette nicotine dependence (Acute) COPD (chronic obstructive pulmonary disease) Crohn's disease (Chronic) Self Reported Depressive disorder (Chronic) DJD (degenerative joint disease) (Chronic) DVT (deep venous thrombosis) Gastroesophageal reflux disease Hearing loss (Chronic) Housing problems (Acute) Hx of deep venous thrombosis (Acute) Hypercholesterolemia 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 (Chronic) Ischemic ulcer of right ankle, limited to breakdown of skin (Acute) Lymphedema of both lower extremities (Acute) Mitral regurgitation (Chronic) Mitral valve prolapse (Chronic) On anticoagulant therapy (Chronic) for chronic DVTs Osteoarthritis Osteoarthritis of hip (Acute 12/14/12) Overgrown toenails (Acute) Pulmonary HTN (Acute) Smoking greater than 40 pack years (Chronic) cont on smoking cessation SOB (shortness of breath) (Acute) Tobacco use disorder (Chronic) Ulcer of right lower extremity (Acute) 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) Venous insufficiency of both lower extremities (Chronic) as above Venous stasis dermatitis of both lower extremities (Acute) Venous stasis ulcer of ankle limited to breakdown of skin (Acute) Surgical History Cholecystectomy (11/01/17) Colonoscopy - MAC EGD - MAC Extraction of cataract Repair of inguinal hernia Bilateral Repair of umbilical hernia Tonsillectomy and adenoidectomy Total replacement of hip bilateral Family History Mother Breast cancer Hypertension Father CHF (congestive heart failure) Social History (Updated 06/29/19 @ 13:41 by Saw Berg) Smoking/Tobacco Use Status: Current every day Tobacco Type: cigarettes Smoking packs per day: 1.5 Smoking cigarettes per day: 30.0 Years smoked: 50 Smoking pack-years: 75.00 Tobacco: How many years used: 50 Quit status: considering quitting Counseling given: support program Alcohol Intake: former Year quit: 2007 Drug use: Rarely Substance use type: marijuana Adopted: No Caregiver/Support person: Yes Foster care: No Household members: none Housing: apartment Number of Children: 3 Do you need help understanding health information?: Always current occupation: Disabled Sexually active: Yes Do you think of yourself as: straight/heterosexual Current gender identity: male What is your relationship status?: Panel score (0-1 are the most socially isolated patients): 0 What type of physical activity do you participate in: none Do you feel safe at home: Yes Do you feel safe in your relationship?: Yes Visit Medication and Allergies Active Medications Generic Name Dose Route Start Last Admin Trade Name Freq PRN Reason Stop Dose Admin Acetaminophen 325 - 650 mg 06/29/19 08:13 07/01/19 21:57 Tylenol PO 650 mg Q4H PRN PRN Administration Albuterol Sulfate 2.5 mg 06/29/19 08:13 Proventil Updraft UPD Q2H PRN PRN Albuterol/Ipratropium 3 ml 06/29/19 12:00 07/02/19 13:06 Duoneb Updraft UPD 3 ml Q6H ANIVAL Administration Budesonide/Formoterol Fumarate 2 puff 06/29/19 20:00 07/02/19 07:55 Symbicort 160/4.5 Mcg Inhaler IH 2 puff BID ANIVAL Administration Dimethicone/Zinc Oxide 0 gm 06/29/19 08:13 Rosa Protect Cream TP PRN PRN Docusate Sodium 100 mg 06/29/19 08:13 Colace PO TID PRN PRN Finasteride 5 mg 06/29/19 20:00 07/01/19 20:12 Proscar PO 5 mg QPM ANIVAL Administration Furosemide 40 mg 07/02/19 08:00 07/02/19 08:05 Lasix IVP 40 mg BID@0800,1600 ANIVAL Administration Magnesium Hydroxide 30 ml 06/29/19 08:13 07/02/19 06:37 Milk Of Magnesia PO 30 ml DAILY PRN PRN Administration Nicotine 1 cartridge 06/29/19 10:52 06/29/19 14:00 Nicotrol 30 Cartridges/Pack IH 4 mg DIRECTED PRN Administration nicotine cravings Pantoprazole Sodium 40 mg 07/01/19 07:30 07/02/19 08:03 Protonix PO 40 mg DAILY@0730 ANIVAL Administration Polyethylene Glycol 17 gm 06/29/19 08:13 Miralax PO DAILY PRN PRN Constipation Sodium Chloride 0 ml 06/29/19 06:37 07/02/19 08:10 Saline Flush 10 Ml Syringe IVP 10 ml PRN PRN Administration Tiotropium [place] 2 puff 06/29/19 13:55 07/02/19 07:55 Spiriva Respimat IH 2 inh DAILY ANIVAL Administration Tramadol HCl 50 mg 07/01/19 12:44 Ultram PO Q6H PRN PRN pain Allergies Sulfa (Sulfonamide Antibiotics) Adverse Reaction (Intermediate, Verified 06/22/19 11:03) Itching Results Last Vital Signs Temp 36.8 C 07/02/19 11:45 Pulse 74 07/02/19 13:10 Resp 24 07/02/19 13:10 BP 121/77 07/02/19 11:45 Pulse Ox 99 07/02/19 13:10 Labs Result diagrams: 07/02/19 06:41 07/02/19 06:41 Labs: Laboratory Results - last 24 hr 06/29/19 06/29/19 06/29/19 12:10 12:20 12:20 WBC RBC Hgb Hct MCV MCH MCHC RDW Plt Count MPV Immature Gran % Neutrophils % Lymphocytes % Monocytes % Eosinophils % Basophils % Absolute Neutrophils Absolute Lymphocytes Absolute Monocytes Absolute Eosinophils Absolute Basophils Sodium Potassium Chloride Carbon Dioxide Anion Gap BUN Creatinine Estimated GFR/1.73 m2 Glucose Uric Acid Calcium Phosphorus Magnesium Total Bilirubin Conjugated Bilirubin AST ALT Alkaline Phosphatase Lactate Dehydrogenase Total Protein Albumin Fluid Type pleural Pleural Fluid Glucose 96 Fluid Total Protein 4.2 Fluid LDH 611 07/02/19 07/02/19 07/02/19 06:41 06:41 13:56 WBC 8.92 RBC 4.77 Hgb 15.4 Hct 46.1 MCV 96.6 H MCH 32.3 MCHC 33.4 RDW 14.1 Plt Count 185 MPV 10.8 Immature Gran % 0.4 Neutrophils % 80.2 Lymphocytes % 10.3 Monocytes % 8.6 Eosinophils % 0.4 Basophils % 0.1 Absolute Neutrophils 7.14 H Absolute Lymphocytes 0.92 L Absolute Monocytes 0.77 H Absolute Eosinophils 0.04 Absolute Basophils 0.01 Sodium 138 Potassium 3.9 Chloride 100 Carbon Dioxide 28.4 Anion Gap 9.6 BUN 25 H Creatinine 1.05 Estimated GFR/1.73 m2 >= 60.00 Glucose 82 Uric Acid 9.5 H Calcium 10.4 H Phosphorus Magnesium 2.0 Total Bilirubin Conjugated Bilirubin AST ALT Alkaline Phosphatase Lactate Dehydrogenase 322 H Total Protein Albumin Fluid Type Fluid Glucose Fluid Total Protein Fluid LDH 07/02/19 13:56 WBC RBC Hgb Hct MCV MCH MCHC RDW Plt Count MPV Immature Gran % Neutrophils % Lymphocytes % Monocytes % Eosinophils % Basophils % Absolute Neutrophils Absolute Lymphocytes Absolute Monocytes Absolute Eosinophils Absolute Basophils Sodium Potassium Chloride Carbon Dioxide Anion Gap BUN Creatinine Estimated GFR/1.73 m2 Glucose Uric Acid Calcium Phosphorus 3.5 Magnesium Total Bilirubin 0.5 Conjugated Bilirubin 0.16 AST 63 H ALT 103 H Alkaline Phosphatase 96 Lactate Dehydrogenase Total Protein 6.6 Albumin 3.0 L Fluid Type Fluid Glucose Fluid Total Protein Fluid LDH
--- NOTE | 2019-07-02 16:20 | DI.MRI_ITS ---
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 COMPARISON: No exams were available for comparison FINDINGS: VENTRICLES AND EXTRA AXIAL SPACES: The ventricles and sulci are mildly prominent consistent with the patient's age. MIDLINE SHIFT: None. CEREBRAL PARENCHYMA: There are a few scattered foci of hyperintense signal on the FLAIR and T2 weight ed images. These likely reflect small vessel ischemic disease. No space-occupying lesion identified . BRAINSTEM/CEREBELLUM: Normal. CALVARIUM: Normal. VISUALIZED PARANASAL SINUSES/MASTOIDS:Clear. [place]: Normal flow void. PIT[place] GLAND: Unremarkable. OTHER FINDINGS: Examination was limited due to patient motion. The patient was unable to complete th e examination. Sagittal T2, axial T2 and FLAIR axial images were obtained. IMPRESSION: 1. Limited examination due to patient motion artifact. The study was truncated due to the patient's inability to complete the examination. 2. Findings suggestive of small vessel ischemic disease. 3. If there is continued clinical concern, a repeat MRI examination of the brain should be considered . DATA REPOSITORY:
--- NOTE | 2019-07-02 16:21 | CHAPLAIN ---
I visited with Isra's sister while Isra was sleeping. She drove up from [place] and is staying in [facility]. She was headed with Isra for an MRI. she said her biggest concern is that Isra knows where he's going. I didn't get ask if that meant physically or spiritually. I'll will continue to visit.
--- NOTE | 2019-07-02 16:43 | DI.VRAD_ITS ---
Addendum created by Medardo Menendez MD on 07/02/2019 4:47:51 PM EDT THIS REPORT CONTAINS FINDINGS THAT MAY BE CRITICAL TO PATIENT CARE. The findings were verbally communicated via telephone conference with SARAH MAYA at 4:47 PM EDT on 07/02/2019. The findings were acknowledged and understood. 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 COMPARISON: No relevant prior studies available. FINDINGS: Limitations: Examination is limited by motion artifact. Brain: Questionable small focus of DWI hyperintensity along the right vertex frontal lobe (series 8001 image 22) versus artifact. Scattered nonspecific T2 hyperintensities of the periventricular and deep subcortical white matter and [place], most likely secondary to chronic small vessel ischemic change. No evidence of acute intracranial hemorrhage or extra-axial fluid collection. No evidence of mass effect or midline shift. Ventricles: Mild prominence of the ventricles and sulci, likely attributed to parenchymal volume loss. Bones/joints: Unremarkable. Soft tissues: Unremarkable. Sinuses: Unremarkable. Mastoid air cells: Partial opacification of inferior right mastoid air cells. Orbits: Unremarkable. IMPRESSION: 1. Questionable small focus of DWI hyperintensity along the right vertex frontal lobe versus artifact. Examination limited due to both motion artifact and patient inability to complete examination. Small focal acute infarct cannot be excluded. Recommend follow-up dedicated DWI and ADC sequences only in both axial and coronal planes to completely exclude possibility of infarct. 2. Other findings, as above. Dictated and Authenticated by: Medardo Menendez MD. Ordering:BOSSMAN Wilson MD
--- NOTE | 2019-07-02 17:05 | CMPROGNOTE_ITS ---
- If Service Date Differs Date of service: 07/02/19 Time of Service: 17:05 Care Management Progress Note S/O: CM met with Isra's sister in the room he is asleep at this time. She states he did not tolerate the MRI and is returning this afternoon for imaging. Pending transfer to tertiary center once a bed is available. CM will provide the sister with financial DPOA paperwork to compete. CM to continue to offer support to patient and family. A:Isra is a 64 year old male with a New lung mass, adenopathy, dyspnea, now complains of difficulty with ambulation due to bilat leg numbness. P: Isra is being transferred once a bed is available to [facility]. [facility], [facility] by to [facility] [place] [facility]. Ambulance transfer once a bed is available.
--- NOTE | 2019-07-02 17:54 | DSE_ITS ---
Date of service: 07/02/19 Time of Service: 17:55 DS: Diagnosis Discharge Diagnosis (1) Lymphoma: Status: Suspected (2) Spontaneous tumor lysis syndrome: Status: Suspected (3) Cord compression syndrome: Status: Suspected (4) Hyperuricemia: Status: Acute (5) Weakness of both lower extremities: Status: Acute (6) COPD exacerbation: Status: Acute (7) Mediastinal adenopathy: Status: Acute (8) Abdominal lymphadenopathy: Status: Acute (9) Pleural effusion: Status: Acute Asessment and Plan: s/p thoracenthesis 06/29/2019, prior to 1st dose of prednisone (10) Dehydration: Status: Acute Asessment and Plan: resolved (11) Paroxysmal A-fib: Status: Acute Asessment and Plan: 1 short burst of rapid Afib seen in ED on presentation (12) Hx of deep venous thrombosis: Status: Chronic Asessment and Plan: venous dopplers of BLE's on this admission are negative (13) Pulmonary HTN: Status: Chronic (14) Diastolic dysfunction: Status: Chronic (15) Mitral regurgitation: Status: Chronic (16) Lymphedema of both lower extremities: Status: Chronic (17) Venous insufficiency of both lower extremities: Status: Chronic (18) Crohn's disease: Status: Chronic Discharge Plan Disposition Patient Disposition: [facility] Condition: Good Discharge Details Chief Complaint: RespSymp Clinical Impression: Lung mass, COPD exacerbation, Respiratory distress Reason For Visit: NEW LUNG MASS AND ADENOPATHY, DYSPNEA Admit Date/Time: 06/29/19 08:13 Admit Provider: Saw Berg Attending Provider: Saw Berg Primary Care Provider: Renan Garcia ED Provider: Italo Oliveros Hospital Course Hospital Course: Mr Mao is a 64 year old male with PMHx of non-oxygen dependent COPD, DVTs on eliquis, pulmonary hypertension and chronic diastolic CHF, on chronic lasix therapy, who was admitted to [facility] hospitalist service on 06/29/2019 after presenting to the ED with complaints of shortness of breath, LLQ pain, and difficulty walking due to BLE weakness. He had a short burst of Afib with RVR while in ED which resolved with IVF and was never caught on EKG. His imaging revealed diffuse lymphadenopathy in his chest, abdomen, pelvis, suspicious for lymphoma. There was compression of the left lower lobe bronchus by the adenopathy, causing atelectasis. The patient also had a large left pleural effusion, for which he underwent thoracenthesis (prior to initiation of steroids) - pathology is still pending at the time of writing this discharge summary. The patient denied numbness/tingling of LEs in the ED and had a preserved rectal tone, at least initially ruling out cauda equina. He was initiated on oral steroid therapy as well as scheduled and prn nebs for COPD exacerbation. His anticoagulation was held in anticipation of possible further testing such as biopsies of the lymph nodes. He ruled out for any DVTs in either lower extremity currently with a negative venous doppler of BLE's. He was being treated with IVF initially for dehydration, but they had to be stopped and lasix resumed when he got fluid overloaded. He continued to report BLEs weakness and difficulty walking while also now reporting numbness/tingling for 2-3 weeks (he denied this in ED). Attempts to obtain MRI of lumbar spine were made twice, as was an attempt at brain MRI - unfortunately, the patient could not tolerate the procedure due to claustrophobia, even after being pre-medicated. The patient's case was discussed with [facility] [place], who felt that the patient may also be at risk of not just [employer] involvement with the lymphadenopathy, causing LE weakness, which is difficult to disprove without imaging, but also given hyperuricemia, likely developing tumor lysis syndrome. He was accepted in transfer [place] [facility] [place] by Dr Solorzano for further oncologic workup and possible inpatient chemotherapy. The patient did not have any exposure to any known COVID - 19 patients or anyone being ruled out for COVID-19. He is in agreement with transfer and is medically stable for transfer. [facility]. It is worth mentioning that based on the small portion of the brain MRI actually completed today distorted by patient's motion, there is a possible finding of an artifact vs CVA in a right vertex of frontal lobe - the radiologist was not sure if it indeed was a CVA, but does recommend attempting to obtain new MRI images when able. Care for patient as well as completion of his transfer summary on day of discharge took 90 minutes. Home Meds and New Rx's Prescriptions: New furosemide 10 mg/mL Solution 40 mg IVP BID@0800,1600 Qty: 0 RF: 0 acetaminophen [Tylenol] 325 mg Tablet 325 - 650 mg PO Q4H PRN PRNQty: 0 RF: 0 ipratropium-albuterol 0.5 mg-3 mg(2.5 mg base)/3 mL Solution For Nebulization 3 ml UPD Q6H Qty: 0 RF: 0 albuterol sulfate 2.5 mg /3 mL (0.083 %) Solution For Nebulization 2.5 mg UPD Q2H PRN PRNQty: 0 RF: 0 polyethylene glycol 3350 17 gram Powder In Packet 17 g PO DAILY PRN PRN (Reason: Constipation) Qty: 0 RF: 0 magnesium hydroxide [Milk of Magnesia] 400 mg/5 mL Suspension 30 ml PO DAILY PRN PRNQty: 0 RF: 0 pantoprazole 40 mg Tablet,Delayed Release (Dr/Ec) 40 mg PO DAILY@0730 Qty: 0 RF: 0 docusate sodium [Colace] 100 mg Capsule 100 mg PO TID PRN PRNQty: 0 RF: 0 Continued finasteride 5 mg tablet 5 mg PO DAILY Qty: 90 RF: 4 tramadol 50 mg tablet 50 mg PO TID PRN (Reason: pain) Qty: 15 RF: 0 albuterol sulfate [ProAir HFA] 90 mcg/actuation HFA aerosol inhaler 2 puff Inhalation Q6H PRNRF: 0 fluticasone propion-salmeterol [Advair Diskus] 250-50 mcg/dose blister with device 1 inh IH BID Qty: 60 RF: 3 Nicotrol 10 mg cartridge 1 inh IH 4-8XD PRN (Reason: nicotine cravings) Qty: 168 RF: 0 Discontinued acetaminophen [Tylenol Extra Strength] 500 mg tablet 500 mg PO Q6H PRNRF: 0 furosemide [Lasix] 40 mg tablet 40 mg PO BID RF: 0 Eliquis 5 MG tablet 2.5 mg PO BID RF: 0 Discharge Instructions Activity:: Activity as Tolerated Diet:: Low Sodium Discharge Orders Discharge Orders: Discharge Order (Routine); Ordered 07/02/19 Ordered By: Katie Smith DS: Summary Status at Discharge Functional status at discharge: uses cane/walker Overall status at discharge: patient is not back to baseline Mental Status: mental status grossly normal Speech and Movement: speech and movement normal Mood: congruent mood Affect: animated and anxious affect Exam Narrative Exam Narrative: General: Very pleasant middle-aged male, sitting in the chair, appears mildly tachypneic, but better today - he can say 3-4 words before taking a breath HEENT: EOMI, MMM Heart: RRR, no m/r/g Lungs: CTA on the R; diminished breath sounds at L base Abdomen: soft, nontender, mildly distended Extremities: 2+ BLE edema, L>R, chronic venous stasis dermatitis, 5/5 strength in BLE's while sitting in a chair Psych Mental Status: mental status grossly normal Speech and Movement: speech and movement normal Mood: congruent mood Affect: animated and anxious affect DS: Data Vitals/I&O Vitals and I&O: Vital Signs Temperature 36.4 C L 07/02/19 16:15 Temperature Source Tympanic 07/02/19 16:15 Pulse 78 07/02/19 16:15 Pulse Rhythm Regular 07/02/19 17:06 Pulse 84 06/29/19 09:10 Respiratory Rate 22 07/02/19 16:15 Respiratory Effort Non-Labored 07/02/19 17:06 Respiratory Depth Normal 07/02/19 17:06 Respiratory Pattern Normal 07/02/19 17:06 Blood Pressure 118/70 07/02/19 16:15 Blood Pressure Mean 65 06/29/19 09:01 Blood Pressure Position Supine 06/29/19 04:23 Pulse Oximetry 92 L 07/02/19 16:15 Oxygen Delivery Method Nasal Cannula 07/02/19 16:15 Oxygen Flow Rate 2 07/02/19 16:15 Pain Level 0 07/02/19 16:15 Intake & Output 07/01/19 07/02/19 07/02/19 23:59 11:59 23:59 Intake Total 516.667 / 1626.667 480 / 720 240 / 720 Output Total 2100 / 2600 600 / 1250 650 / 1250 Balance -1583.333 / -973.333 -120 / -530 -410 / -530 Weight 80.2 kg Intake: IV 36.667 / 36.667 Oral 480 / 1590 480 / 720 240 / 720 Output: Urine 2100 / 2600 600 / 1250 650 / 1250 Other: Urine Color Yellow Yellow Yellow Urine Appearance Clear Clear Clear Data Completed and Pending Completed studies during hospitalization [Text1]: CT chest/abdomen/pelvis/lumbar spine 06/29/2019: 1. Extensive adenopathy in the chest, abdomen and pelvis as described above. This has shown significant change in the chest compared to the CT scan of the chest from 05/16/2019. Findings are suspicious for leukemia/lymphoma. 2. In the chest the mediastinal and hilar adenopathy compress the left lower lobe bronchus causing left lower lobe atelectasis. 3. Large left pleural effusion. 4. Pulmonary centrilobular emphysema. CXR 06/29/2019: Interval decrease in size of left pleural effusion. No pneumothorax. Venous doppler 07/01/2019: Right: Negative for DVT Left: Negative for DVT CXR 07/01/2019: Mild interval worsening of the pulmonary infiltrates since 06/29/2019. MRI Brain (partial, distorted study) 07/02/2019: 1. Questionable small focus of DWI hyperintensity along the right vertex frontal lobe versus artifact. Examination limited due to both motion artifact and patient inability to complete examination. Small focal acute infarct cannot be excluded. Recommend follow-up dedicated DWI and ADC sequences only in both axial and coronal planes to completely exclude possibility of infarct. 2. Other findings, as above. Pending studies at discharge: pathology report from thoracenthesis 06/29/2019 Labs on day of discharge: Labs from last 24 hours 07/02/19 07/02/19 07/02/19 13:56 13:56 06:41 WBC 8.92 RBC 4.77 Hgb 15.4 Hct 46.1 MCV 96.6 H MCH 32.3 MCHC 33.4 RDW 14.1 Plt Count 185 MPV 10.8 Immature Gran % 0.4 Neutrophils % 80.2 Lymphocytes % 10.3 Monocytes % 8.6 Eosinophils % 0.4 Basophils % 0.1 Absolute Neutrophils 7.14 H Absolute Lymphocytes 0.92 L Absolute Monocytes 0.77 H Absolute Eosinophils 0.04 Absolute Basophils 0.01 Sodium Potassium Chloride Carbon Dioxide Anion Gap BUN Creatinine Estimated GFR/1.73 m2 Glucose Uric Acid 9.5 H Calcium Phosphorus 3.5 Magnesium Total Bilirubin 0.5 Conjugated Bilirubin 0.16 AST 63 H ALT 103 H Alkaline Phosphatase 96 Lactate Dehydrogenase 322 H Total Protein 6.6 Albumin 3.0 L Fluid Type Fluid Glucose Fluid Total Protein Fluid LDH 07/02/19 06/29/19 06/29/19 06:41 12:20 12:20 WBC RBC Hgb Hct MCV MCH MCHC RDW Plt Count MPV Immature Gran % Neutrophils % Lymphocytes % Monocytes % Eosinophils % Basophils % Absolute Neutrophils Absolute Lymphocytes Absolute Monocytes Absolute Eosinophils Absolute Basophils Sodium 138 Potassium 3.9 Chloride 100 Carbon Dioxide 28.4 Anion Gap 9.6 BUN 25 H Creatinine 1.05 Estimated GFR/1.73 m2 >= 60.00 Glucose 82 Uric Acid Calcium 10.4 H Phosphorus Magnesium 2.0 Total Bilirubin Conjugated Bilirubin AST ALT Alkaline Phosphatase Lactate Dehydrogenase Total Protein Albumin Fluid Type Pleural pleural Fluid Glucose Fluid Total Protein 4.2 Fluid LDH 611 06/29/19 12:10 WBC RBC Hgb Hct MCV MCH MCHC RDW Plt Count MPV Immature Gran % Neutrophils % Lymphocytes % Monocytes % Eosinophils % Basophils % Absolute Neutrophils Absolute Lymphocytes Absolute Monocytes Absolute Eosinophils Absolute Basophils Sodium Potassium Chloride Carbon Dioxide Anion Gap BUN Creatinine Estimated GFR/1.73 m2 Glucose Uric Acid Calcium Phosphorus Magnesium Total Bilirubin Conjugated Bilirubin AST ALT Alkaline Phosphatase Lactate Dehydrogenase Total Protein Albumin Fluid Type Fluid Glucose 96 Fluid Total Protein Fluid LDH Preliminary micro results at discharge 06/29/19 06:35 Blood Culture - Preliminary Blood NO GROWTH 72 HOURS 06/29/19 06:30 Blood Culture - Preliminary Blood NO GROWTH 72 HOURS 06/29/19 12:10 Body Fluid Culture - Preliminary Pleural PFSH Medical History 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) Anxiety (Chronic) BPH (benign prostatic hyperplasia) Cellulitis of right lower extremity without foot (Acute) Cigarette nicotine dependence (Acute) COPD (chronic obstructive pulmonary disease) Crohn's disease (Chronic) Self Reported Depressive disorder (Chronic) DJD (degenerative joint disease) (Chronic) DVT (deep venous thrombosis) Gastroesophageal reflux disease Hearing loss (Chronic) Housing problems (Acute) Hx of deep venous thrombosis (Acute) Hypercholesterolemia 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 (Chronic) Ischemic ulcer of right ankle, limited to breakdown of skin (Acute) Lymphedema of both lower extremities (Acute) Mitral regurgitation (Chronic) Mitral valve prolapse (Chronic) On anticoagulant therapy (Chronic) for chronic DVTs Osteoarthritis Osteoarthritis of hip (Acute 12/14/12) Overgrown toenails (Acute) Pulmonary HTN (Acute) Smoking greater than 40 pack years (Chronic) cont on smoking cessation SOB (shortness of breath) (Acute) Tobacco use disorder (Chronic) Ulcer of right lower extremity (Acute) 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) Venous insufficiency of both lower extremities (Chronic) as above Venous stasis dermatitis of both lower extremities (Acute) Venous stasis ulcer of ankle limited to breakdown of skin (Acute) Surgical History Cholecystectomy (11/01/17) Colonoscopy - MAC EGD - MAC Extraction of cataract Repair of inguinal hernia Bilateral Repair of umbilical hernia Tonsillectomy and adenoidectomy Total replacement of hip bilateral Family History Mother Breast cancer Hypertension Father CHF (congestive heart failure) Social History (Updated 06/29/19 @ 13:41 by Saw Berg) Smoking/Tobacco Use Status: Current every day Tobacco Type: cigarettes Smoking packs per day: 1.5 Smoking cigarettes per day: 30.0 Years smoked: 50 Smoking pack-years: 75.00 Tobacco: How many years used: 50 Quit status: considering quitting Counseling given: support program Alcohol Intake: former Year quit: 2007 Drug use: Rarely Substance use type: marijuana Adopted: No Caregiver/Support person: Yes Foster care: No Household members: none Housing: apartment Number of Children: 3 Do you need help understanding health information?: Always current occupation: Disabled Sexually active: Yes Do you think of yourself as: straight/heterosexual Current gender identity: male What is your relationship status?: Panel score (0-1 are the most socially isolated patients): 0 What type of physical activity do you participate in: none Do you feel safe at home: Yes Do you feel safe in your relationship?: Yes
--- NOTE | 2019-07-02 18:58 | NUR.NOTE ---
Nursing Note: 18:38 pt is trasfered to [facility] for further treatment via ambulance. Call made to [facility] by this Nurse to give Nurse to Nurse report. Report received by JASWINDER Renee, [facility].
== END 2019-07-02 18:38 | disposition short-term general hospital (02) | DRG 841 ==
LOC: ER 08:46 → MS 09:40
PROVIDERS: Internal Medicine; Admitting Provider Internal Medicine; Emergency Provider Student in an Organized Health Care Education/Training Program; PCP Family Medicine; Visit Provider Internal Medicine
DX: C85.98 Non-Hodgkin lymphoma, unspecified, lymph nodes of multiple sites (principal); J90 Pleural effusion, not elsewhere classified; I83.213 Varicose veins of right lower extremity with both ulcer of ankle and inflammation; L97.319 Non-pressure chronic ulcer of right ankle with unspecified severity; J98.11 Atelectasis; G95.20 Unspecified cord compression; K50.90 Crohn's disease, unspecified, without complications; J43.2 Centrilobular emphysema; Z66 Do not resuscitate; Z79.01 Long term (current) use of anticoagulants; N40.0 Benign prostatic hyperplasia without lower urinary tract symptoms; M51.36 Other intervertebral disc degeneration, lumbar region; M48.061 Spinal stenosis, lumbar region without neurogenic claudication; F10.21 Alcohol dependence, in remission; F41.9 Anxiety disorder, unspecified; F32.9 Major depressive disorder, single episode, unspecified; K21.9 Gastro-esophageal reflux disease without esophagitis; H91.90 Unspecified hearing loss, unspecified ear; E78.00 Pure hypercholesterolemia, unspecified; I34.1 Nonrheumatic mitral (valve) prolapse; I27.20 Pulmonary hypertension, unspecified; Z96.643 Presence of artificial hip joint, bilateral; F17.210 Nicotine dependence, cigarettes, uncomplicated; E86.0 Dehydration; Z86.718 Personal history of other venous thrombosis and embolism; E79.0 Hyperuricemia without signs of inflammatory arthritis and tophaceous disease; I48.0 Paroxysmal atrial fibrillation; I89.0 Lymphedema, not elsewhere classified
CPT/HCPCS: 36415; 74177; 80048; 80053; 80076; 82805; 83690; 86850; 86900; 86901; 87040; 87449; 93005; 94640; 96361; 96365; 96367; 99222; 99223; 99232; 99233; 99239; 99253; 99254; 99285; 70551; 71045; 71260; 81003; 81373; 83605; 83615; 83735; 83880; 84100; 84157; 84443; 84484; 84550; 85025; 85610; 85730; 87070; 87205; 88104; 93010; 93970; J1644; J1940; J1941; J2060; J2543; J3370; J3490; J7512; J7620

== ENCOUNTER → 2019-07-02 12:51 | Outpatient (BNVA) | payer MEDICARE, MEDICAID, SELFPAY | PROVIDERS: PCP Family Medicine; Referring Provider Family Medicine; Visit Provider Psychiatry & Neurology Neurology | DX: R69 Illness, unspecified (principal) ==

== ENCOUNTER 2020-06-03 19:29 | Outpatient (REF) | payer MEDICARE, MEDICAID, SELFPAY | END 2020-06-03 19:30 | disposition home or self-care (01) | LOC: LBN 19:29 | PROVIDERS: PCP Family Medicine; Visit Provider Family Medicine | DX: L03.115 Cellulitis of right lower limb (principal) | CPT/HCPCS: 87077; 87070; 87186; 87205 ==

== ENCOUNTER 2020-06-07 18:38 | Inpatient (IN) | payer MEDICARE, MEDICAID, SELFPAY ==
[2020-06-07] VITALS (22 sets, daily range): BP systolic 87–125; BP diastolic 45–95; PULSE 68–88; RESP 14–25; TEMP 36–36.7; O2SAT 93–98
--- NOTE | 2020-06-07 19:00 | RT.EKG_ITS ---
APPROVED REPORT Exam: Resting ECG Patient Location: E HR:84 bpm ECG Measurements Heart Rate 84 AXIS MN 165 P 66 QRSd 116 QRS -55 QT 393 T 44 QTc 467 Conclusion Sinus rhythm...normal P axis, V-rate 60- 99 Multiform ventricular premature complexes...short R-R, variable morphology LAD, consider left anterior fascicular block...axis(240,-40), S>R II III aVF I have reviewed and interpreted ECG and agree with software generated interpretation.
--- NOTE | 2020-06-07 19:00 | DI.RAD_ITS ---
EXAM: XR TIB/FIB RT CLINICAL HISTORY: right leg wound. TECHNIQUE: 2D digital imaging was performed. COMPARISON: CR XR femur RT from 09/04/2018 FINDINGS: There is no evidence of fracture or dislocation. However, there is diffuse abnormal subcutaneous sof t tissue swelling throughout the leg and this appears to extend from the level of the foot to above t he level of the knee. There is no radiopaque focal foreign body although there is circumferential de nsity around the mid calf level, possibly related to application of radiopaque cream or bandage mater ial. There is no metallic foreign body. No osseous lesions evident. No obvious radiographic eviden ce of osteomyelitis. I note that prior x-rays August 2018 reveal that there is a right hip prosthesis. IMPRESSION: Diffuse severe soft tissue swelling throughout the visualized right lower leg. No fracture evident. DATA REPOSITORY: RADIATION DOSE DELIVERED:
--- NOTE | 2020-06-07 19:03 | DI.RAD_ITS ---
EXAM: XR CHEST 2V PA LATERAL CLINICAL HISTORY: peripheral edema. TECHNIQUE: 2D digital imaging was performed. COMPARISON: CR,XR XR PORTABLE CHEST AP from 07/01/2019 FINDINGS: Heart size is upper normal. The mediastinum is not widened. There is platelike atelectasis in the left lung base. No other pulmonary findings nor pleural effusi ons. No pulmonary edema. No pneumothorax. IMPRESSION: Platelike atelectasis is noted in the lingular segment of the left lung. No other pulmonary findings and no pleural effusions. No obvious skeletal findings. DATA REPOSITORY: RADIATION DOSE DELIVERED:
--- NOTE | 2020-06-07 19:07 | W.ED.GENAD ---
Discharge Plan Discharge Details Chief Complaint: Cellulitis Admit Date/Time: 06/07/20 20:45 Admit Provider: Katie Smith Attending Provider: Katie Smith Primary Care Provider: Renan Garcia ED Provider: Aurelia Jesus Medical Decision Making Patient wound culture positive for Moraxella and Enterobacter, he is on appropriate antibiotic therapy with Cipro and cefdinir although he failed outpatient oral therapy at this time given spreading cellulitic region, this is likely secondary to significant peripheral edema he did have his diuretics increased on additionally which was appropriate therapy He will need IV diuresis however initially his blood pressure was 120/60, he states in the evening his blood pressure dipped down to 95/60 and this is not unusual for him, this happens every night per patient At this time I feel uncomfortable giving him the 40 mg of Lasix secondary to his blood pressure being on the lower end of normal I do not think this is related to sepsis although patient does have a lactate of 2.2 I did not give him fluid resuscitation as I believe he is stable at this time and the risk of giving him additional IV therapy at this time outweighs the benefit There is no indication for starting pressors at this time Patient is alert and oriented, he has not tachycardic CRP is also elevated consistent with infectious etiology of patient's symptoms His BUN is persistently elevated, ranging from 25-30 Potassium 3.2, this was supplemented xray is interpreted by me of his tib-fib and reviewed by radiologist reviewed He is resting comfortably in room with his leg elevated and wrapped He was started on Zosyn after discussion with the hospitalist and reviewing his microbiology therapy X-ray does not show evidence of soft tissue gas and my suspicion for this being necrotizing fasciitis is quite low Do not feel like this is related to a DVT given patient's Eliquis and symmetrical bilateral peripheral edema Case was discussed and patient will be admitted with Dr. Smith hospitalist Differential Diagnosis Differential Diagnosis: Cellulitis, abscess, CHF, peripheral edema Medical Records Medical records reviewed: Yes I reviewed the patient's medical records. ECG Data Prior ECG tracings: available for review HPI This 65-year-old gentleman with history of cord compression syndrome, tumor lysis syndrome, bilateral lower extremity weakness, lymphoma, , acute pulmonary edema presents with cellulitis to right lower extremity. He was started on 2 antibiotics on . Presents today today secondary to worsening pain, spreading redness, increased swelling to the affected extremity. He has been taking his antibiotics as prescribed . Denies chest pain, shortness of breath, dizziness, weakness. Is taking ciprofloxacin and cefdinir prescribed. Takes his Eliquis as prescribed reports increasing peripheral edema. Denies history of diabetes. General Date/Time Provider Initiated Documentation: 06/07/20 18:52. Related Data Home Medications Medication Instructions Recorded Confirmed acetaminophen [Tylenol] 325 - 650 mg PO Q4H PRN PRN #0 tab 07/02/19 06/07/20 albuterol sulfate 2.5 mg UPD Q2H PRN PRN #0 ml 07/02/19 06/07/20 folic acid 1 mg tablet 1 mg PO DAILY 10/05/19 simethicone 80 mg chewable tablet 40 mg PO Q6H PRN tab 10/05/19 06/07/20 multivitamin,tx-minerals 1 tab PO DAILY 05/28/20 06/07/20 Pull-ups #200 ea 05/29/20 05/29/20 calcium polycarbophil 625 mg tablet 1,250 mg PO DAILY #90 tab 05/29/20 06/07/20 gabapentin 100 mg capsule 100 mg PO TID #270 cap 05/29/20 06/07/20 ipratropium 20 mcg-albuterol 100 1 puff INHALATION QID #4 g 05/29/20 06/07/20 mcg/actuation mist for inhalation lactose-reduced food with fiber 237 ml PO BID #5688 ml 05/29/20 06/07/20 0.06 gram-1.2 kcal/mL oral liquid ondansetron 8 mg disintegrating 8 mg PO Q8H #270 tab 05/29/20 06/07/20 tablet potassium chloride 10 mEq 10 meq PO DAILY #90 tab 05/29/20 06/07/20 tablet,extended release torsemide 20 mg tablet 20 mg PO QAM #90 tab 05/29/20 06/07/20 apixaban 5 mg tablet 2.5 mg PO BID #90 tab 06/02/20 06/07/20 ascorbic acid (vitamin C) 500 mg 500 mg PO DAILY #90 tab 06/03/20 06/07/20 tablet cholecalciferol (vitamin D3) 10 20 mcg PO DAILY #180 tab 06/03/20 06/07/20 mcg (400 unit) tablet finasteride 5 mg tablet 5 mg PO DAILY #90 tab-cap 06/03/20 06/07/20 polyethylene glycol 3350 17 gram 17 g PO DAILY PRN PRN #100 ea 06/03/20 06/07/20 oral powder packet sennosides 8.6 mg-docusate sodium 1 tab-cap PO BID #180 tab 06/03/20 06/07/20 50 mg tablet torsemide 10 mg tablet 20 mg PO QNOON #90 tab 06/03/20 06/07/20 cefdinir 300 mg capsule 300 mg PO BID 10 Days #20 cap 06/06/20 06/07/20 ciprofloxacin HCl 750 mg tablet 750 mg PO BID 10 Days #20 tab 06/06/20 06/07/20 Previous Rx's Medication Instructions Recorded acetaminophen [Tylenol] 325 - 650 mg PO Q4H PRN PRN #0 tab 07/02/19 albuterol sulfate 2.5 mg UPD Q2H PRN PRN #0 ml 07/02/19 Pull-ups #200 ea 05/29/20 calcium polycarbophil 625 mg tablet 1,250 mg PO DAILY #90 tab 05/29/20 gabapentin 100 mg capsule 100 mg PO TID #270 cap 05/29/20 ipratropium 20 mcg-albuterol 100 1 puff INHALATION QID #4 g 05/29/20 mcg/actuation mist for inhalation lactose-reduced food with fiber 237 ml PO BID #5688 ml 05/29/20 0.06 gram-1.2 kcal/mL oral liquid ondansetron 8 mg disintegrating 8 mg PO Q8H #270 tab 05/29/20 tablet potassium chloride 10 mEq 10 meq PO DAILY #90 tab 05/29/20 tablet,extended release torsemide 20 mg tablet 20 mg PO QAM #90 tab 05/29/20 apixaban 5 mg tablet 2.5 mg PO BID #90 tab 06/02/20 ascorbic acid (vitamin C) 500 mg 500 mg PO DAILY #90 tab 06/03/20 tablet cholecalciferol (vitamin D3) 10 20 mcg PO DAILY #180 tab 06/03/20 mcg (400 unit) tablet finasteride 5 mg tablet 5 mg PO DAILY #90 tab-cap 06/03/20 polyethylene glycol 3350 17 gram 17 g PO DAILY PRN PRN #100 ea 06/03/20 oral powder packet sennosides 8.6 mg-docusate sodium 1 tab-cap PO BID #180 tab 06/03/20 50 mg tablet torsemide 10 mg tablet 20 mg PO QNOON #90 tab 06/03/20 cefdinir 300 mg capsule 300 mg PO BID 10 Days #20 cap 06/06/20 ciprofloxacin HCl 750 mg tablet 750 mg PO BID 10 Days #20 tab 06/06/20 Allergies Allergy/AdvReac Type Severity Reaction Status Date / Time Sulfa (Sulfonamide AdvReac Intermediate Itching Verified 06/07/20 19:06 Antibiotics) General Stated Complaint: Cellulitis DARRELL: 3 Review of Systems Narrative: Review of systems negative x7 aside from where indicated in HPI, specifically no shortness of breath, chest discomfort, fever, chills PFSH Medical History (Updated 06/03/20 @ 14:47 by Renan Garcia DO) Alcohol dependence in remission Anxiety BPH (benign prostatic hyperplasia) Cellulitis of right leg Cellulitis of right lower extremity without foot Cigarette nicotine dependence COPD (chronic obstructive pulmonary disease) Crohn's disease Self Reported Depressive disorder DJD (degenerative joint disease) DVT (deep venous thrombosis) Gastroesophageal reflux disease Hearing loss Housing problems Hx of deep venous thrombosis Hypercholesterolemia Incontinence of bowel 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 [place] artery of extremity Ischemic ulcer of right ankle, limited to breakdown of skin Lymphedema of both lower extremities Mitral regurgitation Mitral valve prolapse On anticoagulant therapy for chronic DVTs Osteoarthritis Osteoarthritis of hip (12/14/12) Overgrown toenails Pulmonary HTN Smoking greater than 40 pack years cont on smoking cessation 08/2019 quit smoking SOB (shortness of breath) Suprapubic catheter Tobacco use disorder Ulcer of right lower extremity Varicose veins of both lower extremities with complications Venous insufficiency of both lower extremities as above Venous stasis dermatitis of both lower extremities Venous stasis ulcer of ankle limited to breakdown of skin Venous stasis ulcer of right lower leg with edema of right lower leg Surgical History Cholecystectomy (11/01/17) Colonoscopy - MAC EGD - MAC Extraction of cataract Repair of inguinal hernia Bilateral Repair of umbilical hernia Tonsillectomy and adenoidectomy Total replacement of hip bilateral Family History Mother Breast cancer Hypertension Father CHF (congestive heart failure) Social History (Updated 05/29/20 @ 14:36 by Tigist Hammond LPN) Smoking/Tobacco Use Status: Current every day Tobacco: How many years used: 50 Quit status: considering quitting Smoking risk assessment performed?: Yes Alcohol Intake: former Year quit: 2007 Drug use: Rarely Substance use type: marijuana Adopted: No Caregiver/Support person: Yes Foster care: No Household members: none Housing: apartment Number of Children: 3 Communication Needs: None Do you need help understanding health information?: Always current occupation: Disabled Sexually active: Yes Do you think of yourself as: straight/heterosexual Current gender identity: male What is your relationship status?: Panel score (0-1 are the most socially isolated patients): 0 What type of physical activity do you participate in: none Seatbelt use: always Do you feel safe at home: Yes Do you feel safe in your relationship?: Yes Exam Const General: cooperative Orientation: oriented x3 Other: Chronically ill-appearing Eyes Pupils: PERRL Resp Effort & Inspection: normal respiratory effort Auscultation: clear to auscultation bilaterally Cardio Rate: regular rate Rhythm: regular rhythm GI Inspection: normal to inspection Other: Nontender abdominal exam Extrem Other: Approximately 16 inch area of cellulitis with large skin tear, likely blister with skin tear No crepitus Neurovascularly intact No clinical evidence of compartment syndrome, no lymphangitis 3+ peripheral edema bilaterally Course Vital Signs Vital signs: Vital Signs Temperature 36.7 C 06/07/20 18:58 Pulse 85 06/07/20 18:58 Respiratory Rate 06/07/20 18:58 Blood Pressure 125/95 H 06/07/20 18:58 Pulse Oximetry 96 06/07/20 18:58 Temperature 36.7 C 06/07/20 18:58 Temperature Source Skin 06/07/20 18:58 Pulse 85 06/07/20 18:58 Respiratory Rate 22 06/07/20 18:58 Blood Pressure 125/95 H 06/07/20 18:58 Blood Pressure Position Sitting 06/07/20 18:58 Pulse Oximetry 96 06/07/20 18:58 Oxygen Delivery Method Room Air 06/07/20 18:58 Oxygen Flow Rate 0 06/07/20 18:58 Pain Level 6 06/07/20 18:58 Lab/Test Results Lab/Test Results: 06/07/20 19:03 Blood Blood Culture - Pending 06/07/20 19:03 Blood Blood Culture - Pending
[2020-06-07 19:55] LABS: Lactate 2.2 mmol/L (0.6-1.4)
[2020-06-07 19:57] LABS: Abs Immature Grans 0.03 10^3/uL (0.0-0.06); Absolute Basophil Count 0.03 10^3/uL (0.0-0.2); Absolute Eosinophil Count 0.19 10^3/uL (0.0-0.7); Absolute Lymphocyte Count 1.08 10^3/uL (1.2-3.4); Absolute Monocyte Count 0.85 10^3/uL (0.1-0.8); Absolute Neutrophil Count 5.26 10^3/uL (1.2-6.7); Basophils % 0.4; Eosinophils % 2.6; HCT 39.1 % (40.0-50.0); HGB 12.7 g/dL (13.5-17.5); Immature Grans % 0.4; Lymphocytes % 14.5; MCH 31.9 pg (27.0-33.0); MCHC 32.5 % (32.0-36.0); MCV 98.2 fL (80-95); MPV 10.6 fL (8.0-11.0); Monocytes % 11.4; Neutrophils % 70.7; Nucleated RBC 0 %; Platelet Count 216 10^3/uL (130-400); RBC 3.98 10^6/uL (4.36-5.78); RDW 14.2 % (11.8-14.1); RDW-SD 51.8 fL; WBC 7.44 10^3/uL (4.4-10.8)
[2020-06-07 20:18] LABS: Source Nasopharynx
[2020-06-07 20:29] LABS: ALT 25 U/L (16-63); AST 23 U/L (15-37); Albumin 3.2 g/dL (3.4-5.0); Alkaline Phosphatase 130 U/L (46-116); Anion Gap 9.9 mmol/L (3-11); BUN 32 mg/dL (7-18); Bilirubin, Total 0.4 mg/dL (0.2-1.0); C-Reactive Protein 14.44 mg/dL (0.0-0.3); CO2 30.1 mmol/L (21.0-32.0); CREATININE 1.4 mg/dL (0.70-1.30); Calcium 9.3 mg/dL (8.5-10.1); Chloride 97 mmol/L (98-107); Estimated GFR 51.18 (mL/min/1.73m2); Glucose 108 mg/dL (74-106); NT-proBNP 148 pg/mL (<300); Potassium 3.2 mmol/L (3.5-5.1); Sodium 137 mmol/L (136-145); Total Protein 8.1 g/dL (6.4-8.2)
[2020-06-07] MEDS: cefTRIAXone 2 GM/50 ML BAG IVPB (20:32)
--- NOTE | 2020-06-07 20:35 | DI.VRAD_ITS ---
PROCEDURE INFORMATION: Exam: XR Right Tibia and Fibula Exam date and time: 06/07/2020 8:12 PM Age: 65 years old Clinical indication: Cellulitis and swelling, leg or foot; Lower leg; Patient HX: Right leg wound TECHNIQUE: Imaging protocol: XR Right tibia and fibula. Views: 2 views. COMPARISON: CR XR femur RT 09/04/2018 4:58 PM FINDINGS: Bones/joints: Osseous anatomic alignment is well preserved. No acutely displaced fracture or dislocation. Joint spaces are well preserved. Soft tissues: Diffuse and severe soft tissue swelling noted throughout the lower leg. IMPRESSION: Diffuse and severe soft tissue swelling throughout the lower leg. Dictated and Authenticated by: Lane Collazo MD. Ordering:ROSA Moses MD
--- NOTE | 2020-06-07 20:37 | DI.VRAD_ITS ---
PROCEDURE INFORMATION: Exam: XR Chest, 2 Views Exam date and time: 06/07/2020 8:12 PM Age: 65 years old Clinical indication: Other: Peripheral edema TECHNIQUE: Imaging protocol: XR of the chest Views: 2 views. COMPARISON: CR XR PORTABLE CHEST AP 07/01/2019 2:14 PM FINDINGS: Lungs: Unremarkable. No consolidation. Pleural spaces: Unremarkable. No pleural effusion. No pneumothorax. Heart/Mediastinum: Unremarkable. No cardiomegaly. Bones/joints: No acute skeletal abnormality or aggressive osseous lesion. IMPRESSION: Negative for acute thoracic pathology. Dictated and Authenticated by: Lane Collazo MD. Ordering:ROSA Moses MD
[2020-06-07 21:28] LABS: COVID-19 PCR Negative (Negative); Influenza A PCR Negative (Negative); Influenza B PCR Negative (Negative); RSV PCR Negative (Negative)
[2020-06-07] MEDS: PIPERACILLIN/TAZO 3.375 GM in Normal Saline 50 ML IVPB (21:30)
[2020-06-07] MEDS: Potassium Chloride 20 MEQ TABCR 40 MEQ PO (22:21)
--- NOTE | 2020-06-07 22:51 | W.PM.HP.N ---
Date of service: 06/07/20 Time of Service: 22:52 Assessment and Plan Assessment and plan (1) Cellulitis of right leg: Status: Acute Assessment and plan: I do not think that the patient has clearly failed outpatient cipro/cefdinir as it had not yet been 24 hrs of therapy since his antibiotics were changed - however, findings on XR are impressive, and the patient would benefit from an admission for IV antibiotics (zosyn). Hold off on MRSA coverage (no h/o MRSA in either our or [facility] records). Await blood culture results and MRSA screen. Trend CRP. Obtain CT lower leg in am. Consider surgical consultation if clinically deteriorating. (2) Venous stasis ulcer of right lower leg with edema of right lower leg: Status: Acute Assessment and plan: As above. Consult wound care. (3) Hypotension: Status: Acute Assessment and plan: Could be an indicator of impending sepsis. Continue aggressive IV antiobiotics and consider introduction of gentle IVF, though the patient is clinically fluid overloaded at this time. (4) Venous insufficiency of both lower extremities: Status: Chronic Assessment and plan: Pulses dopplerable in the ED. This will need outpatient follow up. (5) Cor pulmonale (chronic): Status: Chronic Assessment and plan: As above. (6) Lymphoma: Status: Resolved Assessment and plan: s/p RCHOP/MTX as well as XRT; h/o cord compression with paraparesis; PET scan negative at 6 months. Follow up with [facility] onc as previously scheduled. PT/OT consults (7) Suprapubic catheter: Status: Chronic Assessment and plan: Catheter last changed 04/26/2020. Consult urology for suprapubic catheter exchange in house. Does need to establish care with local urology. (8) Discharge planning issues: Status: Acute Assessment and plan: DNI (He changed his code status in conversation with me today from DNR/DNI to just DNI). 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 He was a patient at [facility] from 07/18/2019 until 05/27/2020 with several readmissions to [facility] during that time. The patient states he does not have a history of MRSA> Since his discharge home, he noticed worsening edema to his BLEs as well as redness and heat in RLE, starting a few days after arriving home. He has been followed by his PCP, Dr Garcia, for an infected venous stasis ulcer of RLE. He was initially started on doxycycline on 06/03/20 with wound cultures done in the office that day, then seen in follow up on 06/05/20, at which point cellulitis was felt to be getting worse. His antibiotics were changed on 06/06/2020 to cefdinir and cipro for Morganella and Enterobacter that grew in his wound. However, today, the patient felt his redness was worse. In the ED, the patient was afebrile and did not have a leucocytosis. His XR of R Tib fib shows extensive soft tissue disease. He was initiated on ceftriaxone, then changed to Zosyn in the ED for better coverage of the organisms in his leg, and hospitalists were asked to take over care. Of note, while in the ED, the patient was noted to have become hypotensive. It is 100/60 manually right now. Review of Systems All systems reviewed & are unremarkable except as noted in HPI and below [facility] Medical History (Updated 06/07/20 @ 23:36 by Katie Smith MD) Alcohol dependence in remission Anxiety BPH (benign prostatic hyperplasia) Cellulitis of right leg Cellulitis of right lower extremity without foot Cigarette nicotine dependence COPD (chronic obstructive pulmonary disease) Crohn's disease Self Reported Depressive disorder DJD (degenerative joint disease) DVT (deep venous thrombosis) Gastroesophageal reflux disease Hearing loss Housing problems Hx of deep venous thrombosis Hypercholesterolemia Incontinence of bowel 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 [place] artery of extremity Ischemic ulcer of right ankle, limited to breakdown of skin Lymphedema of both lower extremities Mitral regurgitation Mitral valve prolapse On anticoagulant therapy for chronic DVTs Osteoarthritis Osteoarthritis of hip (12/14/12) Overgrown toenails Pulmonary HTN Smoking greater than 40 pack years cont on smoking cessation 08/2019 quit smoking SOB (shortness of breath) Suprapubic catheter Tobacco use disorder Ulcer of right lower extremity Varicose veins of both lower extremities with complications Venous insufficiency of both lower extremities as above Venous stasis dermatitis of both lower extremities Venous stasis ulcer of ankle limited to breakdown of skin Venous stasis ulcer of right lower leg with edema of right lower leg Surgical History Cholecystectomy (11/01/17) Colonoscopy - MAC EGD - MAC Extraction of cataract Repair of inguinal hernia Bilateral Repair of umbilical hernia Tonsillectomy and adenoidectomy Total replacement of hip bilateral Family History Mother Breast cancer Hypertension Father CHF (congestive heart failure) Social History (Updated 05/29/20 @ 14:36 by Tigist Hammond LPN) Smoking/Tobacco Use Status: Current every day Tobacco: How many years used: 50 Quit status: considering quitting Smoking risk assessment performed?: Yes Alcohol Intake: former Year quit: 2007 Drug use: Rarely Substance use type: marijuana Adopted: No Caregiver/Support person: Yes Foster care: No Household members: none Housing: apartment Number of Children: 3 Communication Needs: None Do you need help understanding health information?: Always current occupation: Disabled Sexually active: Yes Do you think of yourself as: straight/heterosexual Current gender identity: male What is your relationship status?: Panel score (0-1 are the most socially isolated patients): 0 What type of physical activity do you participate in: none Seatbelt use: always Do you feel safe at home: Yes Do you feel safe in your relationship?: Yes Meds Home Medications and Allergies Home Medications Medication Instructions Recorded Confirmed Type acetaminophen [Tylenol] 325 - 650 mg PO Q4H PRN PRN #0 tab 07/02/19 06/07/20 Rx albuterol sulfate 2.5 mg UPD Q2H PRN PRN #0 ml 07/02/19 06/07/20 Rx folic acid 1 mg tablet 1 mg PO DAILY 10/05/19 History simethicone 80 mg chewable tablet 40 mg PO Q6H PRN tab 10/05/19 06/07/20 History multivitamin,tx-minerals 1 tab PO DAILY 05/28/20 06/07/20 History Pull-ups #200 ea 05/29/20 05/29/20 Rx calcium polycarbophil 625 mg tablet 1,250 mg PO DAILY #90 tab 05/29/20 06/07/20 Rx gabapentin 100 mg capsule 100 mg PO TID #270 cap 05/29/20 06/07/20 Rx ipratropium 20 mcg-albuterol 100 1 puff INHALATION QID #4 g 05/29/20 06/07/20 Rx mcg/actuation mist for inhalation lactose-reduced food with fiber 237 ml PO BID #5688 ml 05/29/20 06/07/20 Rx 0.06 gram-1.2 kcal/mL oral liquid ondansetron 8 mg disintegrating 8 mg PO Q8H #270 tab 05/29/20 06/07/20 Rx tablet potassium chloride 10 mEq 10 meq PO DAILY #90 tab 05/29/20 06/07/20 Rx tablet,extended release torsemide 20 mg tablet 20 mg PO QAM #90 tab 05/29/20 06/07/20 Rx apixaban 5 mg tablet 2.5 mg PO BID #90 tab 06/02/20 06/07/20 Rx ascorbic acid (vitamin C) 500 mg 500 mg PO DAILY #90 tab 06/03/20 06/07/20 Rx tablet cholecalciferol (vitamin D3) 10 20 mcg PO DAILY #180 tab 06/03/20 06/07/20 Rx mcg (400 unit) tablet finasteride 5 mg tablet 5 mg PO DAILY #90 tab-cap 06/03/20 06/07/20 Rx polyethylene glycol 3350 17 gram 17 g PO DAILY PRN PRN #100 ea 06/03/20 06/07/20 Rx oral powder packet sennosides 8.6 mg-docusate sodium 1 tab-cap PO BID #180 tab 06/03/20 06/07/20 Rx 50 mg tablet torsemide 10 mg tablet 20 mg PO QNOON #90 tab 06/03/20 06/07/20 Rx cefdinir 300 mg capsule 300 mg PO BID 10 Days #20 cap 06/06/20 06/07/20 Rx ciprofloxacin HCl 750 mg tablet 750 mg PO BID 10 Days #20 tab 06/06/20 06/07/20 Rx Allergies Allergy/AdvReac Type Severity Reaction Status Date / Time Sulfa (Sulfonamide AdvReac Intermediate Itching Verified 06/07/20 19:06 Antibiotics) Exam Narrative Exam Narrative: General: Pleasant middle-aged male, sitting up in bed, appears comfortable Neurological: A&Ox3, BLE weakness, R>L, no other focal deficits Psychiatric: Appropriate speech pattern/content Skin: RLE erythema with an area of desquamation circumferentially around mid-lower leg, likely from a ruptured bullae HEENT: Atraumatic, normocephalic, EOMI, MMM, clear oropharynx, no submandibular or cervical lymphadenopathy, no goiter or JVD Cardiovascular: RRR, no m/r/g Lungs: CTAB Gastrointestinal: soft, nontender, nondistended Genitourinary: suprapubic catheter with clear yellow urine; site dressed, c/d/i. Extremities: 2+ BLE edema, 3+ at the feet, trace pedal pulses palpable at marked locations; see skin exam above Results Imaging Additional studies: XR R tib/fib: Diffuse and severe soft tissue swelling throughout the lower leg. CXR: Negative for acute thoracic pathology. EKG: Atrial flutter with PVCs, HR 84, nonspecific ST-T changes diffusely, no acute ischemia Labs Result diagrams: 06/07/20 19:40 06/07/20 19:40 Labs: Laboratory Results - last 24 hr 06/07/20 06/07/20 06/07/20 19:40 19:40 19:40 WBC 7.44 RBC 3.98 L Hgb 12.7 L Hct 39.1 L MCV 98.2 H MCH 31.9 MCHC 32.5 RDW 14.2 H Plt Count 216 MPV 10.6 Immature Gran % 0.4 Neutrophils % 70.7 Lymphocytes % 14.5 Monocytes % 11.4 Eosinophils % 2.6 Basophils % 0.4 Nucleated RBC % 0 Absolute Neutrophils 5.26 Absolute Lymphocytes 1.08 L Absolute Monocytes 0.85 H Absolute Eosinophils 0.19 Absolute Basophils 0.03 VBG Lactate 2.2 H* Sodium 137 Potassium 3.2 L Chloride 97 L Carbon Dioxide 30.1 Anion Gap 9.9 BUN 32 H Creatinine 1.4 H Estimated GFR/1.73 m2 51.18 Glucose 108 H Calcium 9.3 Total Bilirubin 0.4 AST 23 ALT 25 Alkaline Phosphatase 130 H C-Reactive Protein 14.44 H NT-Pro-B Natriuret Pep 148 Total Protein 8.1 Albumin 3.2 L COVID-19 Source SARS-CoV-2 (PCR) Influenza Type A (PCR) Influenza Type B (PCR) RSV (PCR) 06/07/20 19:55 WBC RBC Hgb Hct MCV MCH MCHC RDW Plt Count MPV Immature Gran % Neutrophils % Lymphocytes % Monocytes % Eosinophils % Basophils % Nucleated RBC % Absolute Neutrophils Absolute Lymphocytes Absolute Monocytes Absolute Eosinophils Absolute Basophils VBG Lactate Sodium Potassium Chloride Carbon Dioxide Anion Gap BUN Creatinine Estimated GFR/1.73 m2 Glucose Calcium Total Bilirubin AST ALT Alkaline Phosphatase C-Reactive Protein NT-Pro-B Natriuret Pep Total Protein Albumin COVID-19 Source Nasopharynx SARS-CoV-2 (PCR) Negative Influenza Type A (PCR) Negative Influenza Type B (PCR) Negative RSV (PCR) Negative Last Vital Signs Temp 36.7 C 06/07/20 18:58 Pulse 68 06/07/20 22:18 Resp 18 06/07/20 22:18 BP 98/50 L 06/07/20 22:18 Pulse Ox 96 06/07/20 22:18 COVID-19 Screening Have you, or household traveled for leisure in last 14 days?: No Had IN PERSON contact w/suspected or confirmed C-19 person: No
[2020-06-07 23:21] LABS: Bilirubin Negative (Negative); Blood Moderate (Negative); Clarity Sl Cloudy (Clear); Glucose Negative (Negative); Ketones Negative (Negative); Leukocyte Esterase Small (Negative); Nitrite Negative (Negative); Urobilinogen 0.2 EU/dL (Up TO 0.2)
[2020-06-07 23:38] LABS: Bacteria Rare HPF (Negative); Epithelial Cells Few HPF (Negative); Other Cells Negative (Negative); RBC 20-50 HPF (0-2); WBC 20-50 HPF (0-5)
[2020-06-07 23:39] LABS: C & S Indicated? C&S Done As Ordered; Casts 0-2 Hyaline LPF (Negative); Crystals Negative HPF (Negative); Mucus Negative (Negative)
[2020-06-08] MEDS: Ondansetron O.D.T. 4 MG TABEF 8 MG PO ×4 (00:32→23:36)
[2020-06-08] MEDS: Apixaban 2.5 MG TAB PO (00:32)
[2020-06-08] MEDS: Gabapentin 100 MG CAP PO ×4 (00:33→20:33)
[2020-06-08 03:37] VITALS: BP 105/64; PULSE 84; RESP 18; TEMP 36.2; O2SAT 97
[2020-06-08] MEDS: PIPERACILLIN/TAZO 3.375 GM in Normal Saline 50 ML IVPB ×4 (03:41→21:49)
[2020-06-08 06:54] LABS: Abs Immature Grans 0.01 10^3/uL (0.0-0.06); Absolute Basophil Count 0.03 10^3/uL (0.0-0.2); Absolute Eosinophil Count 0.19 10^3/uL (0.0-0.7); Absolute Lymphocyte Count 0.83 10^3/uL (1.2-3.4); Absolute Monocyte Count 0.72 10^3/uL (0.1-0.8); Absolute Neutrophil Count 3.18 10^3/uL (1.2-6.7); Basophils % 0.6; Eosinophils % 3.8; HCT 32.5 % (40.0-50.0); HGB 10.6 g/dL (13.5-17.5); Immature Grans % 0.2; Lymphocytes % 16.7; MCH 31.7 pg (27.0-33.0); MCHC 32.6 % (32.0-36.0); MCV 97.3 fL (80-95); MPV 10.2 fL (8.0-11.0); Monocytes % 14.5; Neutrophils % 64.2; Nucleated RBC 0 %; Platelet Count 187 10^3/uL (130-400); RBC 3.34 10^6/uL (4.36-5.78); RDW 14.1 % (11.8-14.1); WBC 4.96 10^3/uL (4.4-10.8)
[2020-06-08 07:22] LABS: Iron 31 ug/dL (65-175); Total Iron Binding Capacity 149 ug/dL (250-450); Transferrin Sat 21 % (20-55)
[2020-06-08 07:30] LABS: Anion Gap 8.2 mmol/L (3-11); BUN 26 mg/dL (7-18); C-Reactive Protein 10.04 mg/dL (0.0-0.3); CO2 28.8 mmol/L (21.0-32.0); CREATININE 1.3 mg/dL (0.70-1.30); Calcium 9.1 mg/dL (8.5-10.1); Chloride 103 mmol/L (98-107); Estimated GFR 55.75 (mL/min/1.73m2); Ferritin 591 ng/mL (26-388); Glucose 106 mg/dL (74-106); Potassium 3.5 mmol/L (3.5-5.1); Sodium 140 mmol/L (136-145)
[2020-06-08 07:49] LABS: Vitamin B12 386 pg/mL (193-986)
[2020-06-08 07:51] LABS: Folate > 20.0 ng/mL (8.6-20.0)
[2020-06-08 07:54] LABS: Procalcitonin 0.1 ng/mL
[2020-06-08 07:59] VITALS: BP 100/62; PULSE 68; RESP 18; TEMP 37; O2SAT 94
--- NOTE | 2020-06-08 08:00 | DI.CT_ITS ---
EXAM: CT LOWER EXTREMITY RT W CLINICAL HISTORY: extensive cellulitis lower RLE, r/o abscess/OM. TECHNIQUE: Imaging Protocol: Axial computed tomography images with coronal and sagittal reformatted images were created and reviewed. CONTRAST MATERIAL: Intravenous: Omnipaque 350 Contrast volume:100 cc contrast route:IV - Oral: No COMPARISON: X-rays of lower extremity 06/07/2020 FINDINGS: Field of view of this study is from the femoral condyles down to the foot. OSSEOUS: There are no fractures. There is no obvious knee joint effusion. No evidence of osteomyelitis. No osseous tarsal coalition. SOFT TISSUES: There is skin thickening and generalized extensive edema and inflammatory changes in the subcutaneous fat consistent with probable cellulitis. There is no radiopaque foreign body evident. OTHER: There is subtle evidence of possible filling defect in the popliteal vein which may indicate D VT. This may be artifactual due to the bolus timing which is mostly arterial. There is patent 3 ves belem arterial runoff in the calf noted. No evidence of popliteal artery aneurysm. IMPRESSION: 1. There is extensive skin thickening and inflammatory edema in the subcutaneous tissues throughout t he calf. No distinct focal drainable collection evident. 2. Suggestion of filling defect in the ipsilateral popliteal vein which may represent DVT. Other con sideration at this may be false-positive related to the bolus timing (which is mostly arterial here). Nevertheless, recommend follow-up Doppler ultrasound to rule out DVT. RADIATION DOSE DELIVERED: 455.13mGy.cm Total DLP DATA REPOSITORY: All CT scans at this facility are submitted to the National Radiology Data Registry (NRDR) Dose Index Registry (DIR) with the [employer] (ACR). RADIATION OPTIMIZATION: All CT scans at this facility use at least one of these dose optimization te chniques: automated exposure control; mA and/or kV adjustment per patient size (includes targeted exa ms where dose is matched to clinical indication); or iterative reconstruction.
[2020-06-08] MEDS: Ipratropium/Albuterol 4 GM 120 PUFF INH IH (08:09)
[2020-06-08] MEDS: Normal Saline - Diluent 50 ML VIAL IV (09:09)
[2020-06-08] MEDS: Omnipaque 350 MG/ML 100 ML BTL IJ (09:09)
[2020-06-08] MEDS: Normal Saline Flush 10 ML SYR IVP ×2 (09:10→21:49)
[2020-06-08] MEDS: Cholecalciferol (Vitamin D3) 400 UNIT TAB PO (09:29)
[2020-06-08] MEDS: Sennosides/Docusate Sodium TAB 1 TAB PO ×2 (09:29→20:33)
[2020-06-08] MEDS: Multivitamin w/Minerals TAB 1 TAB PO (09:29)
[2020-06-08] MEDS: Calcium Polycarbophil 625 MG TAB 1250 MG PO (09:29)
[2020-06-08] MEDS: Ascorbic Acid 500 MG TAB PO (09:29)
[2020-06-08] MEDS: Finasteride 5 MG TAB PO (09:30)
[2020-06-08] MEDS: Potassium Chloride 10 MEQ TABCR PO (09:30)
[2020-06-08] MEDS: Folic Acid 1 MG TAB PO (09:30)
--- NOTE | 2020-06-08 09:31 | DI.VRAD_ITS ---
PROCEDURE INFORMATION: Exam: CT Right Lower Extremity With Contrast; Lower Leg Exam date and time: 06/08/2020 8:57 AM Age: 65 years old Clinical indication: Cellulitis and swelling, leg or foot and other: Extensive cellulitis lower rle, R/O abscess/om; Lower leg; Right TECHNIQUE: Imaging protocol: CT of the Right lower extremity with intravenous contrast was performed. Exam focused on the lower leg. Radiation optimization: All CT scans at this facility use at least one of these dose optimization techniques: automated exposure control; mA and/or kV adjustment per patient size (includes targeted exams where dose is matched to clinical indication); or iterative reconstruction. Contrast material: OMNIPAQUE 350; Contrast volume: 100 ml; Contrast route: INTRAVENOUS (IV); COMPARISON: CR XR TIB/FIB RT 06/07/2020 7:55 PM FINDINGS: Bones/joints: No acute fracture or dislocation. Soft tissues: Edema and inflammatory changes in the subcutaneous fat consistent with cellulitis No loculated fluid collection to suggest abscess.. Vasculature: Filling defect in the popliteal vein may represent deep venous thrombosis. Series 3 image 1-45. IMPRESSION: 1. Filling defect in the popliteal vein may represent deep venous thrombosis. Series 3 image 1-45. 2. No loculated fluid collection to suggest abscess.. THIS REPORT CONTAINS FINDINGS THAT MAY BE CRITICAL TO PATIENT CARE. The findings were verbally communicated via telephone conference with Dr Ward at 9:30 AM EST on 06/08/2020. The findings were acknowledged and understood. Dictated and Authenticated by: Petra Whitehead MD. Ordering:BOSSMAN Wilson MD
--- NOTE | 2020-06-08 09:56 | PDOC.CMIN ---
- If Service Date Differs Date of service: 06/08/20 Time of Service: 09:56 Care Management Initial Assess REASON FOR HOSPITALIZATION:: Cellulitis of right leg PAST MEDICAL HISTORY/PAST SURGICAL HISTORY:: Medical History (Updated 06/07/20 @ 23:36 by Katie Smith MD). Alcohol dependence in remission. Anxiety. BPH (benign prostatic hyperplasia). Cellulitis of right leg. Cellulitis of right lower extremity without foot. Cigarette nicotine dependence. COPD (chronic obstructive pulmonary disease). Crohn's disease. Self Reported. Depressive disorder. DJD (degenerative joint disease). DVT (deep venous thrombosis). Gastroesophageal reflux disease. Hearing loss. Housing problems. Hx of deep venous thrombosis. Hypercholesterolemia. Incontinence of bowel. 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 [place] artery of extremity. Ischemic ulcer of right ankle, limited to breakdown of skin. Lymphedema of both lower extremities. Mitral regurgitation. Mitral valve prolapse. On anticoagulant therapy. for chronic DVTs. Osteoarthritis. Osteoarthritis of hip (12/14/12). Overgrown toenails. Pulmonary HTN. Smoking greater than 40 pack years. cont on smoking cessation. 08/2019 quit smoking. SOB (shortness of breath). Suprapubic catheter. Tobacco use disorder. Ulcer of right lower extremity. Varicose veins of both lower extremities with complications. Venous insufficiency of both lower extremities. as above. Venous stasis dermatitis of both lower extremities. Venous stasis ulcer of ankle limited to breakdown of skin. Venous stasis ulcer of right lower leg with edema of right lower leg. Surgical History . Cholecystectomy (11/01/17). Colonoscopy - MAC. EGD - MAC. Extraction of cataract. Repair of inguinal hernia. Bilateral. Repair of umbilical hernia. Tonsillectomy and adenoidectomy. Total replacement of hip. bilateral PREVIOUS FUNCTIONAL STATUS/SOCIAL/FAMILY SUPPORTS:: Isra lives alone in [place], [place]. He attended Adult day at [place] 4 days a week prior to the Covid pandemic. Isra has a housing relocation at the [place] and recdeives his medical care there and is familer with RN ELIZABETH at the clinic. He does have [facility] and receives daily visits from nursing and LNAs. His community specialist is Breann Major and his sister Mariluz is his DPOA. Isra uses [facility] for all transportation. CURRENT FUNCTIONAL STATUS:: Isra was sitting up in a chair when CM met with him. He was pleasant and interacted well with CM. Isra discussed his home supports and informed CM that he receives visits from LNAs twice daily and from nursing once a day. He stated that he also receives PT and OT services twice a week. Isra's sister is his DPOA and he shared that they are very close and talk almost every day. ADVANCE DIRECTIVES:: Pateint reports he does have them and his sister Mariluz is his DPOA Has patient been provided with info about the portal/API?: Yes Did the patient sign up for the portal?: No (enrolled previously) CODE STATUS:: DNI INSURANCE COVERAGE / FINANCIAL ISSUES:: Medicare. Medicaid CURRENT HOME/COMMUNITY SERVICES/EQUIPMENT:: Isra has [facility] with [employer]UM[employer] support twice daily, RN daily and PT and OT twice weekly. He also receives MOW. Isra has a walker, 2 wheelchairs, hospital bed and commode.The only additional equipment he stated that he feels he needs are grab bars in his bathroom which have been ordered. PRIMARY CARE PHYSICIAN:: Renan Garcia POTENTIAL DISCHARGE NEEDS:: Followup with PCP and other community providers and discharge plan of care PATIENT/FAMILY EDUCATION NEEDS:: Discharge plan, limitations, folowup plan, Ask Me Three TRANSPORTATION:: private vehicle vs w/c van PLAN:: Isra will likely be discharged home with a resumption of services. He will follow up with his community providers and discharge plan of care. Isra will transport via private vehicle vs wheelchair van. CM will continue to support Isra and assess for discharge planning concerns.
--- NOTE | 2020-06-08 10:45 | RESPIRATORY ---
Pt says he was on Combivent QID for the past year since going to [facility]. Changed to Spiriva QD for maintenance and educated on purpose of drug and when to use a rescue inhaler.
--- NOTE | 2020-06-08 10:55 | IN_ITS ---
Date of service: 06/08/20 Time of Service: 10:55 PT Notes Visit Reasons: CELLULITIS RLE WITH FAILURE OF OUTPATIENT THERAPY Physical Therapy Inpatient Initial Evaluation Date: 06/08/2020 Referring Doctor: Katie Smith MD PT Orders: PT CONSULT: Limited ability Precautions: Fall. Standard. Activity as tolerated. Patient Profile/Admitting Diagnosis: Isra is a 65-year-old male with past medical history significant for chronic venous insufficiency, cor pulmonale, and lymphoma who presented to the ED 2020 with chief complaints of worsening pain, increased redness, and swelling in the right LE. Patient is diagnosed with cellulitis of right leg, venous stasis ulcer of right leg with edema, hypotension, and generalized weakness. PMHX: Medical History (Updated 06/07/20 @ 23:36 by Katie Smith MD) Alcohol dependence in remission Anxiety BPH (benign prostatic hyperplasia) Cellulitis of right leg Cellulitis of right lower extremity without foot Cigarette nicotine dependence COPD (chronic obstructive pulmonary disease) Crohn's disease Self Reported Depressive disorder DJD (degenerative joint disease) DVT (deep venous thrombosis) Gastroesophageal reflux disease Hearing loss Housing problems Hx of deep venous thrombosis Hypercholesterolemia Incontinence of bowel 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 [place] artery of extremity Ischemic ulcer of right ankle, limited to breakdown of skin Lymphedema of both lower extremities Mitral regurgitation Mitral valve prolapse On anticoagulant therapy for chronic DVTs Osteoarthritis Osteoarthritis of hip (12/14/12) Overgrown toenails Pulmonary HTN Smoking greater than 40 pack years cont on smoking cessation 08/2019 quit smoking SOB (shortness of breath) Suprapubic catheter Tobacco use disorder Ulcer of right lower extremity Varicose veins of both lower extremities with complications Venous insufficiency of both lower extremities as above Venous stasis dermatitis of both lower extremities Venous stasis ulcer of ankle limited to breakdown of skin Venous stasis ulcer of right lower leg with edema of right lower leg Surgical History Cholecystectomy (11/01/17) Colonoscopy - MAC EGD - MAC Extraction of cataract Repair of inguinal hernia Bilateral Repair of umbilical hernia Tonsillectomy and adenoidectomy Total replacement of hip bilateral Social History/Home Situation: Lives alone in an apartment with a ramp to enter. Receives home health assistance for 4 hours in the morning and 2 hours in the afternoon 7 days a week. Able to walk up to 100 feet using wheeled walker insi de the house when [facility]. Equipment Owned/DME: Electric wheelchair, regular wheelchair, front wheeled walker, bedside commode, therapeutic shoes, hospital bed without rails Subjective: Agreeable PT consult. Reports pain in the right LE with ambulation activity. Denies headache, chest pain, and dizziness throughout session. Hopes to regain his ability to walk 100 feet using the FWW. Objective: General Observation: Sitting at edge of bed. Wound dressing covered by CHAVEZ wraps on right LE. Suprapubic catheter in place. Brawny edema in bilateral lower extremities. Erythema to R leg. Mental Status: Alert and oriented x4 Pain: 3/10 pain in the right LE Vital Signs: Within normal limits as measured by SEXUAL ASSAULT COUNSELLOR Kinga before walking activity ROM: Right Upper Extremity: Shoulder Flexion allows only up to 120 degrees. Shoulder abduction allows only up to 100 degrees. Elbow flexion WFL. Wrist flexion WFL. Opening and closing of hand WFL. Left Upper Extremity: Shoulder Flexion allows only up to 120 degrees. Shoulder abduction allows only up to 100 degrees. Elbow flexion WFL. Wrist flexion WFL. Opening and closing of hand WFL. Right Lower Extremity: Hip flexion unable to bend at the hip any further while seated at edge of bed. Hip abduction WFL. Knee flexion allows up to 90 degrees. Knee extension -30 degrees. Ankle dorsiflexion to neutral only. Ankle plantarflexion WFL. Left Lower Extremity: Hip flexion unable to bend at the hip any further while seated at edge of bed. Hip abduction WFL. Knee flexion allows up to 90 degrees. Knee extension -30 degrees. Ankle dorsiflexion to neutral only. Ankle plantarflexion WFL. Strength: Right Upper Extremity: Shoulder flexors 3-/5. Shoulder abductors 3-/5. Elbow flexors 4/5. Elbow extensors 4/5. Machine Operator Helper strong. Left Upper Extremity: Shoulder flexors 3-/5. Shoulder abductors 3-/5. Elbow flexors 4/5. Elbow extensors 4/5. Machine Operator Helper strong. Right Lower Extremity: Hip flexors 3-/5. Hip abductors 4-/5. Knee flexors 3-/5. Knee extensors 3-/5. Ankle dorsiflexors 2-/5. Ankle plantarflexors 3/5. Left Lower Extremity: Hip flexors 3-/5. Hip abductors 4-/5. Knee flexors 3-/5. Knee extensors 3-/5. Ankle dorsiflexors 2-/5. Ankle plantarflexors 3/5. Sensation: Intact as to pain and pressure on bilateral lower extremities. Bed Mobility/Transfers: Sit to stand minimal assist Stand to sit minimal assist Bed to chair minimal assist Chair to bed minimal assist Gait: Through short distance lesion of 20 feet using front wheeled walker minimal assist and minimal verbal cueing for walker management, posture, and safe pattern. Silvina decreased. Step height decreased. Decreased trunk extension. Balance: Static Sitting: Normal Dynamic Sitting: Normal Static Standing: Fair Dynamic Standing: Fair Special Tests: Mobility Limitations Standardized Measure [facility]-P[facility] 6 clicks Basic Mobility Inpatient Short Form: Raw Score: 18 CMS Score: 47% deficit Informed Consent/Education: Patient instructed in purpose of PT consult and plan of care. Assessment: Isra demonstrates functional mobility decline requiring physical assistance in the use of a front wheel walker for all mobility ADL performance, generalized weakness, impairment in balance, decreased activity tolerance, and increased risk for falls. Kody will benefit from PT services to address impairment level by next limitations listed below. Without skilled services patient is at risk for further functional mobility decline, increased falls, and inability to return home. Patient presents with clinical signs and symptoms consistent with current/admitting diagnoses that have resulted to mobility limitations, gait instability, generalized weakness, and impairment of motor control as demonstrated by the following impairment level findings: 1. Decreased strength to B UE/LE major muscle groups 2. Impaired sitting/standing balance 3. Impaired activity tolerance 4. Pain in the right LE 5. Swelling in BLE Impairments are contributing to the following functional limitations: 1. Dependent bed mobility skills 2. Increased dependence with transfers 3. Inability to safely ambulate without assistive device and physical assistance 4. Increase completion time for mobility ADL performance 5. Increased fall risk 6. Inability to negotiate steps alone safely Patient is assessed as a 79044 moderate complexity based on the following: History: 65-year-old male with impairment level findings, functional limitations, and past medical history as indicated above Examination: Demonstrable impairment in strength, balance, and mobility level with underlying impairments and functional limitations as documented above Presentation:Evolving Decision Makin moderate complexity Goals: Goals X1 week 1. Supine-Sit independent 2. Sit-Supine independent 3. Sit-Stand independent 4. Stand-Sit independent 5. Bed-Chair independent 6. Chair-Bed independent 7. Independent gait on level surface with use of front wheeled walker for at least 100 feet without report of pain nor dyspnea 8. Good static and dynamic standing balance/tolerance Plan of Care/Treatment Plan: 1-2x/day, 7 days/week x 1 week. Plan of care has been reviewed with the MANAGER POWER providing the service under Physical Therapy direction. Initiate Physical Therapy intervention for strengthening, bed mobility, transfers, gait, stairs, balance training, use of assistive device. DISCHARGE RECOMMENDATIONS: Patient will benefit from home health PT services in order to progress mobility level using least restrictive assistive ambulatory device, assess home safety, identify additional equipment needs, and establish a functional maintenance program that will increase ability of patient to remain at home. No equipment needs at this time TREATMENT CODE/TIME: 63062 x 30 minutes, 64827 x 15 minutes beginning at 10:55 AM Thank you for the opportunity to participate in the care of this patient. Karen Harvey PT, DPT, CLT [facility] [place], [place]
[2020-06-08 11:18] VITALS: BP 101/62; PULSE 66; RESP 17; TEMP 36.5; O2SAT 94
[2020-06-08] MEDS: Enoxaparin 80 MG/0.8 ML SYR SC ×2 (11:58→23:36)
[2020-06-08 12:03] LABS: LDH 186 U/L (85-227)
--- NOTE | 2020-06-08 12:53 | PHACLINREV_ITS ---
Pharmacy Admission Review - Admission Clinical Review (Last Updated 06/03/20 @ 14:47 by Renan Garcia DO) Discharge planning issues (Acute) Hypotension (Acute) Venous stasis ulcer of right lower leg with edema of right lower leg (Acute) Cellulitis of right leg (Acute) Sulfa (Sulfonamide Antibiotics) Adverse Reaction (Intermediate, Verified 06/07/20 19:06) Itching Height 5 ft 6 in Weight 84.6 kg Cellulitis RLE - Comments Comments/Follow Ups: Blood, urine, MRSA nare pending, Afebrile, pain 09/25 (Only APAP), Stool heme negative, H/H pending. DVT found this morning in R leg (has a prior Hx as well), pitting edema. Urology consult, wound care consult, Palliat mirlande consult, working w/PT/OT. Was recently prescribed Cipro/Cefdinir for cellulitis just before admission. Was also recently at a SNF for some time with multiple [facility] admissions in between - Renal Dosing Renal Dosing: BUN 26 mg/dL (7-18) H 06/08/20 06:42 Creatinine 1.3 mg/dL (0.70-1.30) 06/08/20 06:42 Medications needing adjustments: Reviewed (CrC~52ml/min) - Anticoagulation Anticoagulation: Hgb 10.6 g/dL (13.5-17.5) L D 06/08/20 06:42 Hct 32.5 % (40.0-50.0) L 06/08/20 06:42 Plt Count 187 10^3/uL (130-400) 06/08/20 06:42 Creatinine 1.3 mg/dL (0.70-1.30) 06/08/20 06:42 Therapeutic Anticoagulation: Reviewed Medications: Enoxaparin (Lovenox 80mg SC Q12h just started for DVT) - Opiate Usage Evaluate Pain Scale/Pains Meds: N/A - Relevant Labs Sodium 140 mmol/L (136-145) 06/08/20 06:42 Potassium 3.5 mmol/L (3.5-5.1) 06/08/20 06:42 Chloride 103 mmol/L (98-107) 06/08/20 06:42 Magnesium 2.0 mg/dL (1.8-2.4) 06/08/20 06:42 C-Reactive Protein 10.04 mg/dL (0.0-0.3) H 06/08/20 06:42 Electrolytes, C-Reactive P, ESR: Reviewed (Potassium ordered, C-reactive elevated but improved, Procalcitonin 0.1, Iron panel low) - DM Control DM Control: Glucose 106 mg/dL (74-106) 06/08/20 06:42 Insulin Dosing: N/A - Heart Failure/FL Heart Failure/FL: NT-Pro-B Natriuret Pep 148 pg/mL (<300) 06/07/20 19:40 EF%, CHAVEZ's, B-Blockers, Diuretics: Reviewed (Lasix 1x orders) - BP Control BP Control: Blood Pressure 101/62 Blood Pressure 100/62 Blood Pressure 105/64 If elevated: N/A - Qtc Review If Elevated: Reviewed (QTC 467) - IV to PO Switch IV Medications: Reviewed (Zosyn) - Home Meds Home Med List reviewed: Reviewed (Apixiban failure?...not sure, now on Lovenox full dosing for DVT. Other home meds are earlier in 2019) - Current meds Current Medication Order Review: Reviewed (RT asked MD to change to a once/day inhaler...Combivent changed to Spiriva Respimat, only has APAP for pain)
--- NOTE | 2020-06-08 12:55 | PGE_ITS ---
Date of Service Date of service: 06/08/20 Time of Service: 08:14 Assessment and Plan Assessment and plan (1) Cellulitis of right leg: Status: Acute Assessment and plan: Cont Zosyn No WBC count elevation. CRP elevated. Possibly not cellulitis but venous stasis changes exacerbated by popliteal DVT. CRP and CBC in AM (2) Suprapubic catheter: Status: Chronic Assessment and plan: Last changed on 04/26/2020; changes Q4-6 weeks. Urology to see tomorrow. (3) Lymphoma: Status: Resolved Assessment and plan: s/p RCHOP/MTX as well as XRT; h/o cord compression with paraparesis; PET scan negative at 6 months. Follow up with [facility] [place] as previously scheduled. (4) Discharge planning issues: Status: Acute Assessment and plan: DNI. Care management involved. [facility]. (5) Hypotension: Status: Acute Assessment and plan: Improved with SBP now in the low 100's. Monitor. Encourage fluid intake. (6) DVT of popliteal vein: Status: Acute Assessment and plan: R popliteal vein with long filling defect seen on CT. Was on Eliquis 2.5mg BID. Spoke with Heme/Onc fellow at [facility] [place], Dr. Alarcon regarding anticoagulation. If no concerns with active bleeding, Lovenox suggested; otherwise heparin drip until hemoglobin determined to be stable. Initially concerned with possible blood loss; hgb decreased from 12.7 to 10.61. Had received a 1L NS bolus. Next Hgb this AM was 11.4. LDH normal. Iron low, % sat. low normal. No blood in large stool this AM. No significant bleeding concerns. Lovenox 80mg SQ BID. (7) Anemia: Status: Chronic Assessment and plan: Iron deficiency as well as result of chemotx and chronic disease issues. Will give a dose of IV Venofer before discharge. Monitor. Subjective Subjective Patient reports: no new complaints, feels better, tolerating a regular diet and afebrile; denies nausea and vomiting Exam Const General: cooperative and no acute distress Nutritional Appearance: overweight Orientation: alert and oriented x3 Resp Effort & Inspection: normal respiratory effort Auscultation: clear to auscultation bilaterally Cardio Rate: regular rate Rhythm: regular rhythm Heart Sounds: S1 normal and S2 normal GI Palpation: soft and nontender Skin General skin exam: other (RLE; bandage covering previously noted mid-lower desquamated area. ) Extrem General: no calf tenderness and edema Laterality: bilateral (2-3+ ) Objective Last Vital Signs Temp 36.5 C 06/08/20 11:18 Pulse 66 06/08/20 11:18 Resp 17 06/08/20 11:18 BP 101/62 06/08/20 11:18 Pulse Ox 94 06/08/20 11:18 Laboratory Results - last 24 hr 06/07/20 06/07/20 06/07/20 19:40 19:40 19:40 WBC 7.44 RBC 3.98 L Hgb 12.7 L Hct 39.1 L MCV 98.2 H MCH 31.9 MCHC 32.5 RDW 14.2 H Plt Count 216 MPV 10.6 Immature Gran % 0.4 Neutrophils % 70.7 Lymphocytes % 14.5 Monocytes % 11.4 Eosinophils % 2.6 Basophils % 0.4 Nucleated RBC % 0 Absolute Neutrophils 5.26 Absolute Lymphocytes 1.08 L Absolute Monocytes 0.85 H Absolute Eosinophils 0.19 Absolute Basophils 0.03 VBG Lactate 2.2 H* Sodium 137 Potassium 3.2 L Chloride 97 L Carbon Dioxide 30.1 Anion Gap 9.9 BUN 32 H Creatinine 1.4 H Estimated GFR/1.73 m2 51.18 Glucose 108 H Calcium 9.3 Magnesium Iron TIBC Transferrin % Sat Ferritin Total Bilirubin 0.4 AST 23 ALT 25 Alkaline Phosphatase 130 H Lactate Dehydrogenase C-Reactive Protein 14.44 H NT-Pro-B Natriuret Pep 148 Total Protein 8.1 Albumin 3.2 L Vitamin B12 Folate Procalcitonin Urine Color Urine Clarity Urine pH Ur Specific [place] Urine Protein Urine Ketones Urine Blood Urine Nitrite Urine Bilirubin Urine Urobilinogen Ur Leukocyte Esterase Urine RBC Urine WBC Ur Epithelial Cells Urine Crystals Urine Bacteria Urine Casts Urine Mucus Urine Other Ur Culture Indicated? Urine Glucose COVID-19 Source SARS-CoV-2 (PCR) Influenza Type A (PCR) Influenza Type B (PCR) RSV (PCR) 06/07/20 06/07/20 06/08/20 19:55 23:10 06:42 WBC RBC Hgb Hct MCV MCH MCHC RDW Plt Count MPV Immature Gran % Neutrophils % Lymphocytes % Monocytes % Eosinophils % Basophils % Nucleated RBC % Absolute Neutrophils Absolute Lymphocytes Absolute Monocytes Absolute Eosinophils Absolute Basophils VBG Lactate Sodium 140 Potassium 3.5 Chloride 103 Carbon Dioxide 28.8 Anion Gap 8.2 BUN 26 H Creatinine 1.3 Estimated GFR/1.73 m2 55.75 Glucose 106 Calcium 9.1 Magnesium 2.0 Iron TIBC Transferrin % Sat Ferritin 591 H Total Bilirubin AST ALT Alkaline Phosphatase Lactate Dehydrogenase C-Reactive Protein 10.04 H NT-Pro-B Natriuret Pep Total Protein Albumin Vitamin B12 Folate Procalcitonin Urine Color Yellow Urine Clarity Sl cloudy Urine pH 7.0 Ur Specific Burton 1.020 Urine Protein 100 H Urine Ketones Negative Urine Blood Moderate H Urine Nitrite Negative Urine Bilirubin Negative Urine Urobilinogen 0.2 Ur Leukocyte Esterase Small H Urine RBC 20-50 H Urine WBC 20-50 H Ur Epithelial Cells Few Urine Crystals Negative Urine Bacteria Rare Urine Casts 0-2 hyaline Urine Mucus Negative Urine Other Negative Ur Culture Indicated? C&s done as ordered Urine Glucose Negative COVID-19 Source Nasopharynx SARS-CoV-2 (PCR) Negative Influenza Type A (PCR) Negative Influenza Type B (PCR) Negative RSV (PCR) Negative 06/08/20 06/08/20 06/08/20 06:42 06:42 06:42 WBC 4.96 D RBC 3.34 L Hgb 10.6 L D Hct 32.5 L MCV 97.3 H MCH 31.7 MCHC 32.6 RDW 14.1 Plt Count 187 MPV 10.2 Immature Gran % 0.2 Neutrophils % 64.2 Lymphocytes % 16.7 Monocytes % 14.5 Eosinophils % 3.8 Basophils % 0.6 Nucleated RBC % 0 Absolute Neutrophils 3.18 Absolute Lymphocytes 0.83 L Absolute Monocytes 0.72 Absolute Eosinophils 0.19 Absolute Basophils 0.03 VBG Lactate Sodium Potassium Chloride Carbon Dioxide Anion Gap BUN Creatinine Estimated GFR/1.73 m2 Glucose Calcium Magnesium Iron 31 L TIBC 149 L Transferrin % Sat 21 Ferritin Total Bilirubin AST ALT Alkaline Phosphatase Lactate Dehydrogenase C-Reactive Protein NT-Pro-B Natriuret Pep Total Protein Albumin Vitamin B12 Folate Procalcitonin 0.1 Urine Color Urine Clarity Urine pH Ur Specific [place] Urine Protein Urine Ketones Urine Blood Urine Nitrite Urine Bilirubin Urine Urobilinogen Ur Leukocyte Esterase Urine RBC Urine WBC Ur Epithelial Cells Urine Crystals Urine Bacteria Urine Casts Urine Mucus Urine Other Ur Culture Indicated? Urine Glucose COVID-19 Source SARS-CoV-2 (PCR) Influenza Type A (PCR) Influenza Type B (PCR) RSV (PCR) 06/08/20 06/08/20 06:42 06:42 WBC RBC Hgb Hct MCV MCH MCHC RDW Plt Count MPV Immature Gran % Neutrophils % Lymphocytes % Monocytes % Eosinophils % Basophils % Nucleated RBC % Absolute Neutrophils Absolute Lymphocytes Absolute Monocytes Absolute Eosinophils Absolute Basophils VBG Lactate Sodium Potassium Chloride Carbon Dioxide Anion Gap BUN Creatinine Estimated GFR/1.73 m2 Glucose Calcium Magnesium Iron TIBC Transferrin % Sat Ferritin Total Bilirubin AST ALT Alkaline Phosphatase Lactate Dehydrogenase 186 C-Reactive Protein NT-Pro-B Natriuret Pep Total Protein Albumin Vitamin B12 386 Folate > 20.0 H Procalcitonin Urine Color Urine Clarity Urine pH Ur Specific [place] Urine Protein Urine Ketones Urine Blood Urine Nitrite Urine Bilirubin Urine Urobilinogen Ur Leukocyte Esterase Urine RBC Urine WBC Ur Epithelial Cells Urine Crystals Urine Bacteria Urine Casts Urine Mucus Urine Other Ur Culture Indicated? Urine Glucose COVID-19 Source SARS-CoV-2 (PCR) Influenza Type A (PCR) Influenza Type B (PCR) RSV (PCR)
[2020-06-08 13:03] LABS: HCT 35.5 % (40.0-50.0); HGB 11.4 g/dL (13.5-17.5)
--- NOTE | 2020-06-08 14:36 | WOUNDCONS ---
- If Service Date Differs Date of service: 06/08/20 Time of Service: 14:36 Wound Initial Evaluation Narrative: Patient is a 65 yom he is admitted here for tx of cellulitis. CT is positive for a DVT. Patient hx is significant of DVT, malignant neoplasm, cor pulmonale. He was being treated outpatient for the cellulitis, and presented to the ED last night with increased erythema and pain in the right extremity. Potential failure of outpatient tx. he is admitted here for iv abx treatment and asked by the hospitalist service to consult the wound and recommend management. Patients H&P , allergies, labs and other pertinent information were reviewed - Wound Right Lower Tib/Fib(lower leg) Wound Type: Statis Ulcer Wound General Appearance: Reddened, Draining, Bleeding, Unapproximated Wound Bed Greatest Portion: Red (Granulation) Wound Bed Lesser Portion: Pale [place] Wound Surrounding Tissue Appearance: Dark Red Percent of Wound Bed Granulated/Red: 50 (40 %pink non granulating) Percent of Wound Bed Slough/Yellow: 10 Wound Length: 5.2 cm Wound Width: 20.4 cm Wound Depth: 0.4 cm Wound Drainage Amount: Moderate Wound Drainage Odor: Strong Wound Drainage Description: Serous Wound Topical Solution/Irrigant: Antibiotic Irrigant Wound Debridement Method: Gauze, Mechanical Wound Debridement Result: Healthy Tissue Revealed Wound Debridement Amount of Tissue Removed: Moderate ( skin) - Circulation, Sensation, Motion Edema Degree: 3+ Peripheral Pulse Strength: Weak (present in both extremities, right is weaker than left) Capillary Refill: Less than 3 seconds Sensation Description: Numbness, Tingling - SMITH Comment:: patient not able to tolerate at this time r/t pain - Pain Pain Level: 8 (with debridement) Pain Scale Used: Visual Analog Scale 0-10 Pain Description: Burning, Sharp Pain Duration/Frequency: Intermittent Patient with a history of DVT. He is diagnosed with a current DVT. He has stated anticoagulation therapy. Patient has agreed to the POC. Both legs are edenemous, with the right more swollen, red, and painful with an open wound. While here he will have dressing changes daily. Thank you for allowing the wound consult. - Treatment/Dressing Change Cleanse With: Anasept Dressing Types: Kerlix (Gauze Roll), Opti-Lock - Recomendation Recomendation:: [facility] Anasept in wound bed and allow to dwell for a couple of minutes. Mechanically debride wound with gauze, then pat dry. cover anterior and posterior side of wound with Optiloc dressing. Secure dressing with Kerlix. Apply compression to both legs with yolie wraps to the knees. Change daily and PRN Physcian/Nurse Practioner Notified: Yes (Dr. Ward) Treatment Time - Time Total Time Spent with Patient: 35 minutes - Patient Will be Seen Weekly Treatment: daily - For: For:: 1 week
[2020-06-08 15:10] VITALS: BP 100/63; PULSE 70; RESP 18; TEMP 36.9; O2SAT 93
[2020-06-08 19:25] VITALS: BP 102/61; PULSE 68; RESP 18; TEMP 37; O2SAT 94
[2020-06-08 23:48] VITALS: BP 103/59; PULSE 65; RESP 18; TEMP 37; O2SAT 92
[2020-06-09 04:04] VITALS: BP 108/64; PULSE 67; RESP 18; TEMP 36.8; O2SAT 94
[2020-06-09] MEDS: Normal Saline Flush 10 ML SYR IVP ×3 (04:21→10:07)
[2020-06-09] MEDS: PIPERACILLIN/TAZO 3.375 GM in Normal Saline 50 ML IVPB ×2 (04:24→10:07)
[2020-06-09 07:27] LABS: Abs Immature Grans 0.02 10^3/uL (0.0-0.06); Absolute Basophil Count 0.02 10^3/uL (0.0-0.2); Absolute Eosinophil Count 0.22 10^3/uL (0.0-0.7); Absolute Lymphocyte Count 0.88 10^3/uL (1.2-3.4); Absolute Monocyte Count 0.63 10^3/uL (0.1-0.8); Absolute Neutrophil Count 2.84 10^3/uL (1.2-6.7); Basophils % 0.4; Eosinophils % 4.8; HCT 31.1 % (40.0-50.0); Immature Grans % 0.4; Lymphocytes % 19.1; MCH 31.7 pg (27.0-33.0); MCHC 32.2 % (32.0-36.0); MCV 98.7 fL (80-95); MPV 10.6 fL (8.0-11.0); Monocytes % 13.7; Neutrophils % 61.6; Nucleated RBC 0 %; Platelet Count 179 10^3/uL (130-400); RBC 3.15 10^6/uL (4.36-5.78); RDW 14.4 % (11.8-14.1); WBC 4.61 10^3/uL (4.4-10.8)
[2020-06-09 07:37] LABS: C-Reactive Protein 9.24 mg/dL (0.0-0.3)
[2020-06-09] MEDS: Tiotropium Bromide-Respimat 10 PUFF INH 2 PUFF IH (07:41)
[2020-06-09 07:44] LABS: Prothrombin Time 9.7 sec (9.3-11.0)
[2020-06-09 07:48] LABS: Anion Gap 6.8 mmol/L (3-11); BUN 19 mg/dL (7-18); CO2 29.2 mmol/L (21.0-32.0); CREATININE 1.3 mg/dL (0.70-1.30); Calcium 9.1 mg/dL (8.5-10.1); Chloride 104 mmol/L (98-107); Estimated GFR 55.75 (mL/min/1.73m2); Glucose 101 mg/dL (74-106); Potassium 3.7 mmol/L (3.5-5.1); Sodium 140 mmol/L (136-145)
[2020-06-09 07:53] VITALS: BP 107/54; PULSE 66; RESP 19; TEMP 36.9; O2SAT 91
--- NOTE | 2020-06-09 07:54 | OTIE_ITS ---
Occupational Therapy Notes Inpatient Occupational Therapy Evaluation Date: 06/09/20 Referring Doctor:Katie Smith MD OT Orders: Non Urgent Precautions: Fall, Contact, DNI PATIENT PROFILE/ADMITTING DIAGNOSIS: Pt is a 65 year old male who reports that he has been in and out of the hospital for almost a year. He notes that he presented to the ED due to leg pain and is admitted to Med Surg for a dx of DVT popliteal vein, anemia, cor pulmonale, hypotension, venous stasis ulcer (R) LE, cellulitis (R) LE, venous insufficiency. Past Medical History: Medical History (Updated 06/07/20 @ 23:36 by Katie Smith MD) Alcohol dependence in remission Anxiety BPH (benign prostatic hyperplasia) Cellulitis of right leg Cellulitis of right lower extremity without foot Cigarette nicotine dependence COPD (chronic obstructive pulmonary disease) Crohn's disease Self Reported Depressive disorder DJD (degenerative joint disease) DVT (deep venous thrombosis) Gastroesophageal reflux disease Hearing loss Housing problems Hx of deep venous thrombosis Hypercholesterolemia Incontinence of bowel 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 [place] artery of extremity Ischemic ulcer of right ankle, limited to breakdown of skin Lymphedema of both lower extremities Mitral regurgitation Mitral valve prolapse On anticoagulant therapy for chronic DVTs Osteoarthritis Osteoarthritis of hip (12/14/12) Overgrown toenails Pulmonary HTN Smoking greater than 40 pack years cont on smoking cessation 08/2019 quit smoking SOB (shortness of breath) Suprapubic catheter Tobacco use disorder Ulcer of right lower extremity Varicose veins of both lower extremities with complications Venous insufficiency of both lower extremities as above Venous stasis dermatitis of both lower extremities Venous stasis ulcer of ankle limited to breakdown of skin Venous stasis ulcer of right lower leg with edema of right lower leg Surgical History Cholecystectomy (11/01/17) Colonoscopy - MAC EGD - MAC Extraction of cataract Repair of inguinal hernia Bilateral Repair of umbilical hernia Tonsillectomy and adenoidectomy Total replacement of hip bilateral Social History/Home Situation: Pt reports that he lives alone in a 1st floor apartment. He notes that he has HH nursing, PT, OT and (A). He notes that he has an electric wheelchair and states that he spends the majority of the time in the wheelchair. He requires (A) with his ADL routines at baseline but notes that he would like to be (I). Equipment owned/DME: shower seat, grab bars, FWW, electric wheelchair, raised toilet seat SUBJECTIVE: Pt was sitting in chair when OT arrived. He reports that he has services in his home and feels that this has been helpful for him to remain in his apartment. He is agreeable to OT session. OBJECTIVE: General Observation: Pleasant and agreeable to OT session, IV (L) UE, (R) UE and suprapubic catheter in place. Mental Status: A&Ox3 Pain: 3-4/10 pain in (B) LE ROM: RUE AROM WFL L UE AROM WFL STRENGTH: RUE 3-/5 throughout LUE 3+/5 throughout FUNCTIONAL MOBILITY/ADLS: BATHING sitting in chair with max (A) set up/clean up with min vc Bathing UE (I) face, (B) UE, (I) Abdomen Bathing LE Min (A) (B) LE to knees DRESSING sitting in chair Dressing UE Min (A) [facility] gown Dressing LE NT GROOMING Sitting in chair pt was (I) with brushing his hair TOILETING Pt is currently utilizing the commode with mod (A) EATING NT BALANCE: Static sitting Normal Dynamic Sitting Normal SPECIAL TESTS: Daily Activity Limitations Standardized Measure [facility] AM PAC ?6 clicks? Daily Activity Inpatient Short Form: Raw score: 17 Standardized score: 37.26 CMS score: 50.11% INFORMED CONSENT/EDUCATION: Pt instructed in purpose of OT Consult and plan of care. ASSESSMENT: Patient is a 65-year-old male referred to occupational therapy services with diagnosis of DVT popliteal vein, anemia, cor pulmonale, hypoten gaby, venous stasis ulcer (R) LE, cellulitis (R) LE, venous insufficiency. Patient presents with clinical signs and symptoms consistent with dx, as demonstrated by the following impairment level findings/ functional limitations: Impairments in ADL/IALD and leisure activities, decreased functional mobility required for ADL performance, decreased functional activity tolerance, decreased LE dressing and bathing. AMPAC score 17 Patient is assessed as a Low 18003 complexity based on the following: History: see above Examination: see functional limitations noted above Presentation: evolving Decision Making: AMPA score 17 GOALS Goals x1 week 1. Transfers with FWW (S) 2. Dressing sitting in chair (I) UE and min (A) LE 3. Bathing standing at sink with FWW (I) UE and Mod (A) LE 4. Toileting on toilet min (A) 5. Eating (I) PLAN OF CARE/TREATMENT PLAN: 1x/day, 5 days/ week x 1week Initiate Occupational Therapy Services for bathing, dressing, grooming, toileting, eating, transfer training. DISCHARGE RECOMMENDATIONS Based on pts current level of function and ability to perform his ADLs/IADL routines, OT recommends that pt return home with resumption of HH services when medically cleared per MD. TREATMENT TIME/MINUTES/CODES 12757, 62202, 25 minutes (07:30) Ayesha Demarco OTR/[facility] [place]
[2020-06-09] MEDS: Polyethylene Glycol 3350 17 GM PACKET PO (08:34)
[2020-06-09] MEDS: Sennosides/Docusate Sodium TAB 1 TAB PO (08:35)
[2020-06-09] MEDS: Calcium Polycarbophil 625 MG TAB 1250 MG PO (08:35)
[2020-06-09] MEDS: Cholecalciferol (Vitamin D3) 400 UNIT TAB PO (08:35)
[2020-06-09] MEDS: Finasteride 5 MG TAB PO (08:36)
[2020-06-09] MEDS: Ondansetron O.D.T. 4 MG TABEF 8 MG PO (08:36)
[2020-06-09] MEDS: Multivitamin w/Minerals TAB 1 TAB PO (08:36)
[2020-06-09] MEDS: Gabapentin 100 MG CAP PO (08:36)
[2020-06-09] MEDS: Potassium Chloride 10 MEQ TABCR PO (08:36)
[2020-06-09] MEDS: Folic Acid 1 MG TAB PO (08:36)
[2020-06-09] MEDS: Ascorbic Acid 500 MG TAB PO ×2 (08:37→12:29)
--- NOTE | 2020-06-09 09:40 | INDS_ITS ---
Date of service: 06/09/20 Time of Service: 09:40 PT Notes Visit Reasons: CELLULITIS RLE WITH FAILURE OF OUTPATIENT THERAPY Physical Therapy Inpatient Discharge Summary Date: 06/08/2020 Dates of service: 06/08/2020 through 06/09/2020 Referring Doctor: Katie Smith MD PT Orders: PT CONSULT: Limited ability Precautions: Fall. Standard. Activity as tolerated. Patient Profile/Admitting Diagnosis: Isra is a 65-year-old male with past medical history significant for chronic venous insufficiency, cor pulmonale, and lymphoma who presented to the ED 2020 with chief complaints of worsening pain, increased redness, and swelling in the right LE. Patient is diagnosed with cellulitis of right leg, venous stasis ulcer of right leg with edema, hypotension, and generalized weakness. PMHX: Medical History (Updated 06/07/20 @ 23:36 by Katie Smith MD) Alcohol dependence in remission Anxiety BPH (benign prostatic hyperplasia) Cellulitis of right leg Cellulitis of right lower extremity without foot Cigarette nicotine dependence COPD (chronic obstructive pulmonary disease) Crohn's disease Self Reported Depressive disorder DJD (degenerative joint disease) DVT (deep venous thrombosis) Gastroesophageal reflux disease Hearing loss Housing problems Hx of deep venous thrombosis Hypercholesterolemia Incontinence of bowel 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 [place] artery of extremity Ischemic ulcer of right ankle, limited to breakdown of skin Lymphedema of both lower extremities Mitral regurgitation Mitral valve prolapse On anticoagulant therapy for chronic DVTs Osteoarthritis Osteoarthritis of hip (12/14/12) Overgrown toenails Pulmonary HTN Smoking greater than 40 pack years cont on smoking cessation 08/2019 quit smoking SOB (shortness of breath) Suprapubic catheter Tobacco use disorder Ulcer of right lower extremity Varicose veins of both lower extremities with complications Venous insufficiency of both lower extremities as above Venous stasis dermatitis of both lower extremities Venous stasis ulcer of ankle limited to breakdown of skin Venous stasis ulcer of right lower leg with edema of right lower leg Surgical History Cholecystectomy (11/01/17) Colonoscopy - MAC EGD - MAC Extraction of cataract Repair of inguinal hernia Bilateral Repair of umbilical hernia Tonsillectomy and adenoidectomy Total replacement of hip bilateral Social History/Home Situation: Lives alone in an apartment with a ramp to enter. Receives home health assistance for 4 hours in the morning and 2 hours in the afternoon 7 days a week. Able to walk up to 100 feet using wheeled walker inside the house when he was discharged from a retirement facility 2 weeks ago. Equipment Owned/DME: Electric wheelchair, regular wheelchair, front wheeled walker, bedside commode, therapeutic shoes, hospital bed without rails Subjective: Reports pain in the right LE at 10/10 with ambulation activity. Denies headache, chest pain, and dizziness throughout session. Hopes to regain his ability to walk 100 feet using the FWW. Objective: General Observation: Sitting at edge of bed. Wound dressing covered by CHAVEZ wraps on right LE. Suprapubic catheter in place. Brawny edema in bilateral lower extremities. Erythema to R leg. Mental Status: Alert and oriented x4 Pain: 10/10 pain in the right LE ROM: Right Upper Extremity: Shoulder Flexion allows only up to 120 degrees. Shoulder abduction allows only up to 100 degrees. Elbow flexion WFL. Wrist flexion WFL. Opening and closing of hand WFL. Left Upper Extremity: Shoulder Flexion allows only up to 120 degrees. Shoulder abduction allows only up to 100 degrees. Elbow flexion WFL. Wrist flexion WFL. Opening and closing of hand WFL. Right Lower Extremity: Hip flexion unable to bend at the hip any further while seated at edge of bed. Hip abduction WFL. Knee flexion allows up to 90 degrees. Knee extension -30 degrees. Ankle dorsiflexion to neutral only. Ankle plantarflexion WFL. Left Lower Extremity: Hip flexion unable to bend at the hip any further while seated at edge of bed. Hip abduction WFL. Knee flexion allows up to 90 degrees. Knee extension -30 degrees. Ankle dorsiflexion to neutral only. Ankle plantarflexion WFL. Strength: Right Upper Extremity: Shoulder flexors 3-/5. Shoulder abductors 3-/5. Elbow flexors 4/5. Elbow extensors 4/5. Handle Attacher strong. Left Upper Extremity: Shoulder flexors 3-/5. Shoulder abductors 3-/5. Elbow flexors 4/5. Elbow extensors 4/5. Handle Attacher strong. Right Lower Extremity: Hip flexors 3-/5. Hip abductors 4-/5. Knee flexors 3-/5. Knee extensors 3-/5. Ankle dorsiflexors 2-/5. Ankle plantarflexors 3/5. Left Lower Extremity: Hip flexors 3-/5. Hip abductors 4-/5. Knee flexors 3-/5. Knee extensors 3-/5. Ankle dorsiflexors 2-/5. Ankle plantarflexors 3/5. Sensation: Intact as to pain and pressure on bilateral lower extremities. Bed Mobility/Transfers: Sit to stand contact-guard assist Stand to sit contact-guard assist Bed to chair minimal assist Chair to bed minimal assist Gait: Able to tolerate up to a short distance ambulation of 20 feet using front wheeled walker minimal assist and minimal verbal cueing for walker management, posture, and safe pattern. Silvina decreased. Step height decreased. Decreased trunk extension. Balance: Static Sitting: Normal Dynamic Sitting: Normal Static Standing: Fair Dynamic Standing: Fair Assessment: Isra demonstrates functional mobility decline requiring physical assistance and the use of a front wheel walker for all mobility ADL performance, generalized weakness, impairment in balance, decreased activity tolerance, and increased risk for falls. Kody will benefit from PT services to address impairment and functional limitations listed below. Without skilled services patient is at risk for further functional mobility decline, increased falls, and inability to return home. Patient continues to present with clinical signs and symptoms consistent with current/admitting diagnoses that have resulted to mobility limitations, gait instability, generalized weakness, and impairment of motor control as demonstrated by the following impairment level findings: 1. Decreased strength to B UE/LE major muscle groups 2. Impaired sitting/standing balance 3. Impaired activity tolerance 4. Pain in the right LE 5. Swelling in BLE Impairments are continuing to contribute to the following functional limitations: 1. Dependent bed mobility skills 2. Increased dependence with transfers 3. Inability to safely ambulate without assistive device and physical assistance 4. Increase completion time for mobility ADL performance 5. Increased fall risk Goals: Goals X1 week 1. Supine-Sit independent NOT MET 2. Sit-Supine independent NOT MET 3. Sit-Stand independent NOT MET 4. Stand-Sit independent NOT MET 5. Bed-Chair independent NOT MET 6. Chair-Bed independent NOT MET 7. Independent gait on level surface with use of front wheeled walker for at least 100 feet without report of pain nor dyspnea NOT MET 8. Good static and dynamic standing balance/tolerance NOT MET DISCHARGE RECOMMENDATIONS: Patient will benefit from home health PT services in order to progress mobility level using least restrictive assistive ambulatory device, assess home safety, identify additional equipment needs, and establish a functional maintenance program that will increase ability of patient to remain at home. No equipment needs at this time. TREATMENT CODE/TIME: 42700 x 14, 69309 x 25 minutes beginning at 9:40 AM. Thank you for the opportunity to participate in the care of this patient. Karen Harvey PT, DPT, CLT [facility] [place], [place]
[2020-06-09] MEDS: Acetaminophen 325 MG TAB 650 MG PO (10:07)
[2020-06-09 10:48] VITALS: BP 102/63; PULSE 65; RESP 19; TEMP 36.4; O2SAT 92
[2020-06-09] MEDS: Enoxaparin 80 MG/0.8 ML SYR SC (11:36)
--- NOTE | 2020-06-09 11:57 | W.PM.DS.N ---
Date of service: 06/09/20 Time of Service: 11:58 DS: Diagnosis Discharge Diagnosis (1) DVT of popliteal vein: Start date: 06/09/20 Start time: 12:12 Status: Acute Asessment and Plan: R popliteal vein with long filling defect seen on CT. Was on Eliquis 2.5mg BID recently started after being off of for months Sp[place] [facility] Alarcon regarding anticoagulation. If no concerns with active bleeding, Lovenox suggested; otherwise heparin drip until hemoglobin determined to be stable. Initially concerned with possible blood loss; hgb decreased from 12.7 to 10.61. Had received a 1L NS bolus. Next Hgb this AM was 11.4. LDH normal. Iron low, % sat. low normal. No blood in large stool this AM. No significant bleeding concerns. Lovenox 80mg SQ BID, patient insurance does not cover lovenox, however given patient has not been on DOAC and recently restarted, I would be hesitant to say he failed this as an outpatient, therefore he is being placed back on 10 mg bid x 7 days with subsequent 5 mg bid dosing, follow up with PCP and Hem/oc for further instructions on dosing (2) Cellulitis of right leg: Start date: 06/09/20 Start time: 11:58 Status: Acute Asessment and Plan: 06/03 wound culture revealing Morganella morgani ssp morgani GROWTH MODERATE GROWTH Organism 2 ENTEROBACTER CLOACAE COMPLEX GROWTH MODERATE GROWTH Organism 3 NORMAL SMOOTH GROWTH MODERATE GROWTH Sensitive to zosyn and ceftazidine, received 2 days zosyn while inpatient. Will discharge home on 14 day course of augmentin, repeat crp in 1 week and cbc follow up with PCP in 1 week Will defer for further outpatient antibx treatment by PCP for additional dosing, may require longer course. Blood cultures negative (3) Hypotension: Start date: 06/09/20 Start time: 12:05 Status: Resolved Asessment and Plan: On admission to ED. Resolved with Fluid bolus (4) Anemia: Start date: 06/09/20 Start time: 12:06 Status: Chronic Asessment and Plan: Iron deficiency as well as result of chemotx and chronic disease issues. Will given iron po with vitamin c for better absorption (5) Suprapubic catheter: Start date: 06/09/20 Start time: 12:07 Status: Chronic Asessment and Plan: Last changed on 04/26/2020; changes Q4-6 weeks. above case discussed with Dr. Ward Discharge Plan Disposition Patient Disposition: HOME W/HOME HEALTH SERVICE Condition: Improving Discharge Details Reason For Visit: CELLULITIS RLE WITH FAILURE OF OUTPATIENT THERAPY Admit Date/Time: 06/07/20 20:45 Admit Provider: Katie Smith Attending Provider: Katie Smith Primary Care Provider: Renan Garcia [facility] Hospital Course: Mr Mao is a 65 year old male with PMHx of CHFpEF and pulmonary hypertension with chronic lower extremity edema (LVEF 56%, RVSP of 49 mmHg [place] 09[place] [facility] PAD, chronic venous stasis dermatitis, h/o paroxysmal Afib as well as 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 He was a patient at [facility] from 07/18/2019 until 05/27/2020 with several readmissions to [facility] during that time. The patient states he does not have a history of MRSA. Since his discharge home, he noticed worsening edema to his BLEs as well as redness and heat in RLE, starting a few days after arriving home. He has been followed by his PCP, Dr Garcia, for an infected venous stasis ulcer of RLE. He was initially started on doxycycline on 06/03/20 with wound cultures done in the office that day, then seen in follow up on 06/05/20, at which point cellulitis was felt to be getting worse. His antibiotics were changed on 06/06/2020 to cefdinir and cipro for Morganella and Enterobacter that grew in his wound. However, on admission the patient felt his redness was worse. In the ED, the patient was afebrile and did not have a leucocytosis. His XR of R Tib fib shows extensive soft tissue disease. He was initiated on ceftriaxone, then changed to Zosyn in the ED for better coverage of the organisms in his leg, and hospitalists were asked to take over care. He was initiated on zosyn upon admission, CRP 10.04 on admission, procal 0.1. 06/03 wound culture reveals morganella ssp and ENT sumaya co with Sensitivity to ceftazidime and zosyn. He has been afebrile without leukocytosis. CT RLE with contrast revealing: . There is extensive skin thickening and inflammatory edema in the subcutaneous tissues throughout the calf. No distinct focal drainable collection evident. 2. Suggestion of filling defect in the ipsilateral popliteal vein which may represent DVT. Other consideration at this may be false-positive related to the bolus timing (which is mostly arterial here). Nevertheless, recommend follow-up Doppler ultrasound to rule out DVT. He did was not eliquis the last couple months and recently started at 2.5 bid therefore I would not call this a failure and will resume eliquis at 10 mg BID x 7 days with transition to 5 mg bid with follow up to PCP in 1 week. He will also be on augmentin bid for 14 days for his cellulitis and will follow up after 14 days to have PCP decided if a longer course of treatment will be necessary. He denies CP, SOB, N/V/D. He is being discharged home with nursing PT/OT. Home Meds and New Rx's Prescriptions: New ascorbic acid (vitamin C) [Vitamin C] 500 mg Tablet 500 mg PO DAILY Qty: 30 RF: 0 ferrous sulfate 325 mg (65 mg iron) Tablet 325 mg PO DAILY Qty: 30 RF: 0 amoxicillin-pot clavulanate [Augmentin] 875-125 mg tablet 1 tab PO BID Qty: 28 RF: 0 Continued torsemide 10 mg tablet 20 mg PO QNOON Qty: 90 RF: 3 ascorbic acid (vitamin C) 500 mg tablet 500 mg PO DAILY Qty: 90 RF: 3 cholecalciferol (vitamin D3) 10 mcg (400 unit) tablet 20 mcg PO DAILY Qty: 180 RF: 3 finasteride 5 mg tablet 5 mg PO DAILY Qty: 90 RF: 4 polyethylene glycol 3350 17 gram powder in packet 17 g PO DAILY PRN PRN (Reason: Constipation) Qty: 100 RF: 3 sennosides-docusate sodium [Senna-S] 8.6-50 mg tablet 1 tab-cap PO BID Qty: 180 RF: 3 gabapentin 100 mg capsule 100 mg PO TID Qty: 270 RF: 3 calcium polycarbophil [FiberCon] 625 mg tablet 1,250 mg PO DAILY Qty: 90 RF: 3 potassium chloride 10 mEq tablet extended release 10 meq PO DAILY Qty: 90 RF: 3 torsemide 20 mg tablet 20 mg PO QAM Qty: 90 RF: 3 ondansetron 8 mg tablet,disintegrating 8 mg PO Q8H Qty: 270 RF: 3 Combivent Respimat 20-100 mcg/actuation mist 1 puff inhalation QID Qty: 4 RF: 11 Jevity 1.2 Lucas 0.06 gram-1.2 kcal/mL liquid 237 ml PO BID Qty: 5688 RF: 12 folic acid 1 mg tablet 1 mg PO DAILY RF: 0 simethicone [Gas Relief (simethicone)] 80 mg tablet,chewable 40 mg PO Q6H PRN RF: 0 Super Thera Ching M Tablet 1 tab PO DAILY RF: 0 acetaminophen [Tylenol] 325 mg Tablet 325 - 650 mg PO Q4H PRN PRNQty: 0 RF: 0 albuterol sulfate 2.5 mg /3 mL (0.083 %) Solution For Nebulization 2.5 mg UPD Q2H PRN PRNQty: 0 RF: 0 Discontinued Eliquis 5 mg tablet 2.5 mg PO BID Qty: 90 RF: 3 ciprofloxacin HCl 750 mg tablet 750 mg PO BID 10 Days Qty: 20 RF: 0 cefdinir 300 mg capsule 300 mg PO BID 10 Days Qty: 20 RF: 0 No Action (DME) Pull-ups Large See Rx Instructions .Route .MEDSUPPLY Qty: 200 RF: 6 Discharge Instructions Instructions: Cellulitis (DC), Deep Vein Thrombosis (DC), Leg Edema (ED) Additional Instructions: Follow up with PCP in 1 week Repeat lab work in 1 week Take antibiotic twice daily for 2 weeks your PCP will decide if you need a longer course Take iron pills daily with vitamin C Take eliquis 10 mg twice a day for 7 days then switch to 5 mg BID, Follow up with Hematology as well Stand Alone Forms: Nursing Discharge Form Referrals: Renan Garcia DO [Primary Care Provider] - Activity:: Activity as Tolerated Equipment/Supplies:: No Equipment Needed Diet:: Low Sodium Discharge Orders Discharge Orders: Discharge Order (Routine); Ordered 06/09/20 Ordered By: Sneha York Other Ambulatory Orders: Complete Blood Count w/Diff (Routine) Location: None Selected Ordered By: Sneha York C-Reactive Protein (Routine) Location: None Selected Ordered By: Sneha York DS: Summary Time Spent with Patient providing and/or coordinating discharge services: Greater than 30 minutes (approx 50 mins) Status at Discharge Functional status at discharge: wheelchair bound Overall status at discharge: patient is progressing back to baseline Mental Status: mental status grossly normal Speech and Movement: speech and movement normal Mood: congruent mood Affect: normal affect Exam Const General: cooperative and no acute distress Nutritional Appearance: overweight Orientation: alert and oriented x3 Resp Effort & Inspection: normal respiratory effort Auscultation: clear to auscultation bilaterally Cardio Rate: regular rate Rhythm: regular rhythm Heart Sounds: S1 normal and S2 normal GI Palpation: soft and nontender Skin General skin exam: other (RLE; bandage covering previously noted mid-lower desquamated area. ) Extrem General: no calf tenderness and edema Laterality: bilateral (2-3+ ) Psych Mental Status: mental status grossly normal Speech and Movement: speech and movement normal Mood: congruent mood Affect: normal affect DS: Data Vitals/I&O Vitals and I&O: Vital Signs Temperature 36.4 C L 06/09/20 10:48 Temperature Source Tympanic 06/09/20 10:48 Pulse 65 06/09/20 10:48 Pulse Rhythm Regular 06/09/20 08:25 Pulse 81 06/07/20 22:18 Respiratory Rate 19 06/09/20 10:48 Respiratory Effort 06/09/20 08:25 Respiratory Depth Normal 06/09/20 08:25 Respiratory Pattern Normal 06/09/20 08:25 Blood Pressure 102/63 06/09/20 10:48 Blood Pressure Mean 61 06/07/20 22:18 Blood Pressure Position Sitting 06/07/20 18:58 Pulse Oximetry 92 06/09/20 10:48 Oxygen Delivery Method Room Air 06/09/20 10:48 Oxygen Flow Rate 0 06/09/20 10:48 Pain Level 10 06/09/20 10:07 Intake & Output 06/08/20 06/08/20 06/09/20 11:59 23:59 11:59 Intake Total 150 / 600 450 / 600 690 / 690 Output Total 1250 / 2150 900 / 2150 850 / 850 Balance -1100 / -1550 -450 / -1550 -160 / -160 Weight 83.1 kg Intake: IV 150 / 350 200 / 350 100 / 100 Oral 250 / 250 590 / 590 Output: Urine 1250 / 2150 900 / 2150 850 / 850 Other: Urine Color Dark Irma Dark Irma Light Irma Urine Appearance Cloudy Clear Cloudy Comment supra pubic cath. no acute changes at this time Stool Occult Blood Negative Stool Size Copious Stool Characteristics Formed Hard Data Completed and Pending Completed studies during hospitalization [Text1]: CLINICAL HISTORY: peripheral edema. TECHNIQUE: 2D digital imaging was performed. COMPARISON: CR,XR XR PORTABLE CHEST AP from 07/01/2019 FINDINGS: Heart size is upper normal. The mediastinum is not widened. There is platelike atelectasis in the left lung base. No other pulmonary findings nor pleural effusions. No pulmonary edema. No pneumothorax. IMPRESSION: Platelike atelectasis is noted in the lingular segment of the left lung. No other pulmonary findings and no pleural effusions. No obvious skeletal findings. TECHNIQUE: Imaging protocol: XR Right tibia and fibula. Views: 2 views. COMPARISON: CR XR femur RT 09/04/2018 4:58 PM FINDINGS: Bones/joints: Osseous anatomic alignment is well preserved. No acutely displaced fracture or dislocation. Joint spaces are well preserved. Soft tissues: Diffuse and severe soft tissue swelling noted throughout the lower leg. IMPRESSION: Diffuse and severe soft tissue swelling throughout the lower leg. TECHNIQUE: Imaging protocol: XR of the chest Views: 2 views. COMPARISON: CR XR PORTABLE CHEST AP 07/01/2019 2:14 PM FINDINGS: Lungs: Unremarkable. No consolidation. Pleural spaces: Unremarkable. No pleural effusion. No pneumothorax. Heart/Mediastinum: Unremarkable. No cardiomegaly. Bones/joints: No acute skeletal abnormality or aggressive osseous lesion. IMPRESSION: Negative for acute thoracic pathology. TECHNIQUE: Imaging Protocol: Axial computed tomography images with coronal and sagittal reformatted images were created and reviewed. CONTRAST MATERIAL: Intravenous: Omnipaque 350 Contrast volume:100 cc contrast route:IV - Oral: No COMPARISON: X-rays of lower extremity 06/07/2020 FINDINGS: Field of view of this study is from the femoral condyles down to the foot. OSSEOUS: There are no fractures. There is no obvious knee joint effusion. No evidence of osteomyelitis. No osseous tarsal coalition. SOFT TISSUES: There is skin thickening and generalized extensive edema and inflammatory changes in the subcutaneous fat consistent with probable cellulitis. There is no radiopaque foreign body evident. OTHER: There is subtle evidence of possible filling defect in the popliteal vein which may indicate DVT. This may be artifactual due to the bolus timing which is mostly arterial. There is patent 3 vessel arterial runoff in the calf noted. No evidence of popliteal artery aneurysm. IMPRESSION: 1. There is extensive skin thickening and inflammatory edema in the subcutaneous tissues throughout the calf. No distinct focal drainable collection evident. 2. Suggestion of filling defect in the ipsilateral popliteal vein which may represent DVT. Other consideration at this may be false-positive related to the bolus timing (which is mostly arterial here). Nevertheless, recommend follow-up Doppler ultrasound to rule out DVT. COMPARISON: CR XR TIB/FIB RT 06/07/2020 7:55 PM FINDINGS: Bones/joints: No acute fracture or dislocation. Soft tissues: Edema and inflammatory changes in the subcutaneous fat consistent with cellulitis No loculated fluid collection to suggest abscess.. Vasculature: Filling defect in the popliteal vein may represent deep venous thrombosis. Series 3 image 1-45. IMPRESSION: 1. Filling defect in the popliteal vein may represent deep venous thrombosis. Series 3 image 1-45. 2. No loculated fluid collection to suggest abscess.. Labs on day of discharge: Labs from last 24 hours 06/09/20 06/09/20 06/09/20 06:30 06:30 06:30 WBC 4.61 RBC 3.15 L Hgb 10.0 L Hct 31.1 L MCV 98.7 H MCH 31.7 MCHC 32.2 RDW 14.4 H Plt Count 179 MPV 10.6 Immature Gran % 0.4 Neutrophils % 61.6 Lymphocytes % 19.1 Monocytes % 13.7 Eosinophils % 4.8 Basophils % 0.4 Nucleated RBC % 0 Absolute Neutrophils 2.84 Absolute Lymphocytes 0.88 L Absolute Monocytes 0.63 Absolute Eosinophils 0.22 Absolute Basophils 0.02 PT INR Sodium 140 Potassium 3.7 Chloride 104 Carbon Dioxide 29.2 Anion Gap 6.8 BUN 19 H D Creatinine 1.3 Estimated GFR/1.73 m2 55.75 Glucose 101 Calcium 9.1 Lactate Dehydrogenase C-Reactive Protein 9.24 H 06/09/20 06/08/20 06/08/20 06:30 13:00 06:42 WBC RBC Hgb 11.4 L Hct 35.5 L MCV MCH MCHC RDW Plt Count MPV Immature Gran % Neutrophils % Lymphocytes % Monocytes % Eosinophils % Basophils % Nucleated RBC % Absolute Neutrophils Absolute Lymphocytes Absolute Monocytes Absolute Eosinophils Absolute Basophils PT 9.7 INR 1.0 Sodium Potassium Chloride Carbon Dioxide Anion Gap BUN Creatinine Estimated GFR/1.73 m2 Glucose Calcium Lactate Dehydrogenase 186 C-Reactive Protein 06/08/20 00:40 Nose MRSA Screen - Pending 06/07/20 23:10 Urine - Subrapubic Urine Culture - Pending Preliminary micro results at discharge 06/07/20 19:40 Blood Culture - Preliminary Blood NO GROWTH 24 HOURS 06/07/20 19:42 Blood Culture - Preliminary Blood NO GROWTH 24 HOURS 06/08/20 00:40 MRSA Screen - Pending Nose 06/07/20 23:10 Urine Culture - Pending Urine - Subrapubic [facility] Medical History (Updated 06/09/20 @ 12:05 by Sneha York NP) Alcohol dependence in remission Anxiety BPH (benign prostatic hyperplasia) Cellulitis of right leg Cellulitis of right lower extremity without foot Cigarette nicotine dependence COPD (chronic obstructive pulmonary disease) Crohn's disease Self Reported Depressive disorder DJD (degenerative joint disease) DVT (deep venous thrombosis) Gastroesophageal reflux disease Hearing loss Housing problems Hx of deep venous thrombosis Hypercholesterolemia Incontinence of bowel 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 [place] artery of extremity Ischemic ulcer of right ankle, limited to breakdown of skin Lymphedema of both lower extremities Mitral regurgitation Mitral valve prolapse On anticoagulant therapy for chronic DVTs Osteoarthritis Osteoarthritis of hip (12/14/12) Overgrown toenails Pulmonary HTN Smoking greater than 40 pack years cont on smoking cessation 08/2019 quit smoking SOB (shortness of breath) Suprapubic catheter Tobacco use disorder Ulcer of right lower extremity Varicose veins of both lower extremities with complications Venous insufficiency of both lower extremities as above Venous stasis dermatitis of both lower extremities Venous stasis ulcer of ankle limited to breakdown of skin Venous stasis ulcer of right lower leg with edema of right lower leg Surgical History Cholecystectomy (11/01/17) Colonoscopy - MAC EGD - MAC Extraction of cataract Repair of inguinal hernia Bilateral Repair of umbilical hernia Tonsillectomy and adenoidectomy Total replacement of hip bilateral Family History Mother Breast cancer Hypertension Father CHF (congestive heart failure) Social History (Updated 05/29/20 @ 14:36 by Tigist Hammond LPN) Smoking/Tobacco Use Status: Current every day Tobacco: How many years used: 50 Quit status: considering quitting Smoking risk assessment performed?: Yes Alcohol Intake: former Year quit: 2007 Drug use: Rarely Substance use type: marijuana Adopted: No Caregiver/Support person: Yes Foster care: No Household members: none Housing: apartment Number of Children: 3 Communication Needs: None Do you need help understanding health information?: Always current occupation: Disabled Sexually active: Yes Do you think of yourself as: straight/heterosexual Current gender identity: male What is your relationship status?: Panel score (0-1 are the most socially isolated patients): 0 What type of physical activity do you participate in: none Seatbelt use: always Do you feel safe at home: Yes Do you feel safe in your relationship?: Yes
[2020-06-09] MEDS: Ferrous Sulfate 325 MG TAB PO (12:29)
--- NOTE | 2020-06-09 12:41 | PDOC.HHF2F_ITS ---
Home Health Certification Home Health Certification: 1. Encounter Date and Reason I certify that CORI MORFIN was seen by Sneha York on 06/09/20 and that I had a [id number] encounter with this patient that meets the physician face to face encounter requirements. 2. Clinical Findings Supporting Skilled Need and Homebound Status I certify that home health services are medically necessary, include either intermittent halfway and/or physical/speech therapy, and that this patient is homebound in that absences from the home require considerable and taxing effort and are infrequent or of short duration, or are attributable to the need to receive medical care. [X] (a) Attached documentation from encounter provides clinical findings supporting skilled need and homebound status (including what assistance patient requires to leave the home). The encounter with the patient was in whole, or in part, for the following medical condition, which is the primary reason for home health care: CELLULITIS RLE WITH FAILURE OF OUTPATIENT THERAPY Fpc: Patient would benefit from nursing services with [employer] services to help with ADLs, bathing, medication administration, etc Physical Therapy: Patient would benefit from increased PT services for weakness, gait and stability Homebound: Inability to leave home without assitance. 3. Certification and Authentication I certify that I composed the above information based on my clinical judgement relating to this patient's medical condition and, if applicable, clinical findings communicated to me by the NPP or inpatient physician who performed the Home Health Referral. All further orders will be obtained through ____Renan Charles (Community Based Physician - PCP)
--- NOTE | 2020-06-09 14:40 | CMDISCH_ITS ---
- If Service Date Differs Date of service: 06/09/20 Time of Service: 14:47 LACE Index Scoring Tool - Questions: Length of Stay (in days): 2 Acuity (Admit via E.D.?): Yes Comorbidities: Chronic Pulmonary Disease E.D. Visits: 2 - Answers: Total Score: 9 Risk of Readmission: Low Risk Care Management Discharge Reason for Hospitalization: Cellulitis of right leg Discharge Plan: Isra will return home to resume current services in the community. CM coordinated new prescription to [facility] as well as W/C van transport to [place] and then home through [facility]. CM notified [facility] of discharge plan and requested new orders to reflect Isra's needs. IR[place] [facility]. Patient/Family Education Needs: Review discharge instructions, discuss Ask Me Three. Services Needed at Discharge: Home Health Care Services, Homemaking Services, Transportation
--- NOTE | 2020-06-10 08:10 | OTDS_ITS ---
Date of service: 06/10/20 Time of Service: 08:10 Occupational Therapy Notes Occupational Therapy Inpatient Discharge Summary Date: 06/10/20 Dates of Service: 06/09/20 Referring Doctor:Katie Smith MD OT Orders: Non Urgent Precautions: Fall, Contact, DNI PATIENT PROFILE/ADMITTING DIAGNOSIS: Pt is a 65 year old male who reports that he has been in and out of the hospital for almost a year. He notes that he presented to the ED due to leg pain and is admitted to Med Surg for a dx of DVT popliteal vein, anemia, cor pulmonale, hypotension, venous stasis ulcer (R) LE, cellulitis (R) LE, venous insufficiency. Past Medical History: Medical History (Updated 06/07/20 @ 23:36 by Katie Smith MD) Alcohol dependence in remission Anxiety BPH (benign prostatic hyperplasia) Cellulitis of right leg Cellulitis of right lower extremity without foot Cigarette nicotine dependence COPD (chronic obstructive pulmonary disease) Crohn's disease Self Reported Depressive disorder DJD (degenerative joint disease) DVT (deep venous thrombosis) Gastroesophageal reflux disease Hearing loss Housing problems Hx of deep venous thrombosis Hypercholesterolemia Incontinence of bowel 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 [place] artery of extremity Ischemic ulcer of right ankle, limited to breakdown of skin Lymphedema of both lower extremities Mitral regurgitation Mitral valve prolapse On anticoagulant therapy for chronic DVTs Osteoarthritis Osteoarthritis of hip (12/14/12) Overgrown toenails Pulmonary HTN Smoking greater than 40 pack years cont on smoking cessation 08/2019 quit smoking SOB (shortness of breath) Suprapubic catheter Tobacco use disorder Ulcer of right lower extremity Varicose veins of both lower extremities with complications Venous insufficiency of both lower extremities as above Venous stasis dermatitis of both lower extremities Venous stasis ulcer of ankle limited to breakdown of skin Venous stasis ulcer of right lower leg with edema of right lower leg Surgical History Cholecystectomy (11/01/17) Colonoscopy - MAC EGD - MAC Extraction of cataract Repair of inguinal hernia Bilateral Repair of umbilical hernia Tonsillectomy and adenoidectomy Total replacement of hip bilateral Social History/Home Situation: Pt reports that he lives alone in a 1st floor apartment. He notes that he has HH nursing, PT, OT and (A). He notes that he has an electric wheelchair and states that he spends the majority of the time in the wheelchair. He requires (A) with his ADL routines at baseline but notes that he would like to be (I). Equipment owned/DME: shower seat, grab bars, FWW, electric wheelchair, raised toilet seat SUBJECTIVE: NT. OBJECTIVE: ROM: RUE AROM WFL L UE AROM WFL STRENGTH: RUE 3-/5 throughout LUE 3+/5 throughout FUNCTIONAL MOBILITY/ADLS: BATHING sitting in chair with max (A) set up/clean up with min vc Bathing UE (I) face, (B) UE, (I) Abdomen Bathing LE Min (A) (B) LE to knees DRESSING sitting in chair Dressing UE Min (A) [facility] gown Dressing LE NT GROOMING Sitting in chair pt was (I) with brushing his hair TOILETING Pt is currently utilizing the commode with mod (A) EATING NT BALANCE: Static sitting Normal Dynamic Sitting Normal ASSESSMENT: Patient is a 65-year-old male referred to occupational therapy services with diagnosis of DVT popliteal vein, anemia, cor pulmonale, hypotension, venous stasis ulcer (R) LE, cellulitis (R) LE, venous insufficiency. Pt was seen for OT consult only and then was medically cleared per MD. GOALS- Unable to assess as pt was seen for OT consult only. 1. Transfers with FWW (S) 2. Dressing sitting in chair (I) UE and min (A) LE 3. Bathing standing at sink with FWW (I) UE and Mod (A) LE 4. Toileting on toilet min (A) 5. Eating (I) PLAN OF CARE/TREATMENT PLAN: Discharge from skilled OT services. DISCHARGE RECOMMENDATIONS Based on pts current level of function and ability to perform his ADLs/IADL routines, OT recommends that pt return home with resumption of HH services when medically cleared per MD. TREATMENT TIME/MINUTES/CODES N/A [facility]
== END 2020-06-09 13:40 | disposition home health service (06) | DRG 300 ==
LOC: ER 22:33 → MS 22:38
PROVIDERS: Family Medicine; Admitting Provider Internal Medicine; Emergency Provider Physician Assistant; PCP Family Medicine; Visit Provider Internal Medicine
DX: I82.431 Acute embolism and thrombosis of right popliteal vein (principal); L03.115 Cellulitis of right lower limb; L97.811 Non-pressure chronic ulcer of other part of right lower leg limited to breakdown of skin; C85.90 Non-Hodgkin lymphoma, unspecified, unspecified site; I50.30 Unspecified diastolic (congestive) heart failure; G82.20 Paraplegia, unspecified; I83.018 Varicose veins of right lower extremity with ulcer other part of lower leg; I95.9 Hypotension, unspecified; I83.12 Varicose veins of left lower extremity with inflammation; I27.81 Cor pulmonale (chronic); Z93.50 Unspecified cystostomy status; I27.20 Pulmonary hypertension, unspecified; I48.0 Paroxysmal atrial fibrillation; F10.21 Alcohol dependence, in remission; F41.9 Anxiety disorder, unspecified; N40.0 Benign prostatic hyperplasia without lower urinary tract symptoms; F17.210 Nicotine dependence, cigarettes, uncomplicated; J44.9 Chronic obstructive pulmonary disease, unspecified; F32.9 Major depressive disorder, single episode, unspecified; M19.90 Unspecified osteoarthritis, unspecified site; H91.90 Unspecified hearing loss, unspecified ear; Z86.718 Personal history of other venous thrombosis and embolism; I34.0 Nonrheumatic mitral (valve) insufficiency; D50.9 Iron deficiency anemia, unspecified; D64.81 Anemia due to antineoplastic chemotherapy; B96.89 Other specified bacterial agents as the cause of diseases classified elsewhere
CPT/HCPCS: 36415; 80048; 80053; 84145; 87040; 87081; 87637; 93005; 94640; 96365; 96368; 97110; 97162; 97165; 97530; 97535; 99223; 99233; 99239; 99285; 71046; 73590; 73701; 81003; 81015; 82607; 82728; 82746; 83540; 83550; 83605; 83615; 83735; 83880; 85014; 85018; 85025; 85610; 86140; 87086; 93010; 99284; J1650; J2543; J3490

== ENCOUNTER → 2020-06-13 10:47 | Outpatient (BNVA) | payer MEDICARE, MEDICAID, SELFPAY | PROVIDERS: PCP Family Medicine; Referring Provider Family Medicine; Visit Provider Urology | DX: R33.9 Retention of urine, unspecified (principal); Z93.59 Other cystostomy status | CPT/HCPCS: 51702; 99212; 99214 ==

== ENCOUNTER 2020-06-16 19:12 | Outpatient (REF) | payer MEDICARE, MEDICAID, SELFPAY ==
[2020-06-16 13:59] LABS: Abs Immature Grans 0.02 10^3/uL (0.0-0.06); Absolute Basophil Count 0.03 10^3/uL (0.0-0.2); Absolute Eosinophil Count 0.19 10^3/uL (0.0-0.7); Absolute Lymphocyte Count 1.04 10^3/uL (1.2-3.4); Absolute Monocyte Count 0.47 10^3/uL (0.1-0.8); Absolute Neutrophil Count 3.75 10^3/uL (1.2-6.7); Basophils % 0.5; Eosinophils % 3.5; HCT 40.7 % (40.0-50.0); HGB 12.7 g/dL (13.5-17.5); Immature Grans % 0.4; Lymphocytes % 18.9; MCH 31.4 pg (27.0-33.0); MCHC 31.2 % (32.0-36.0); MCV 100.5 fL (80-95); MPV 10.3 fL (8.0-11.0); Monocytes % 8.5; Neutrophils % 68.2; Nucleated RBC 0 %; Platelet Count 272 10^3/uL (130-400); RBC 4.05 10^6/uL (4.36-5.78); RDW 14.6 % (11.8-14.1); RDW-SD 54.7 fL
[2020-06-16 14:08] LABS: C-Reactive Protein 1.59 mg/dL (0.0-0.3)
== END 2020-06-16 19:13 | disposition home or self-care (01) ==
LOC: LBN 19:12
PROVIDERS: PCP Family Medicine; Visit Provider Nurse Practitioner Family
DX: L03.115 Cellulitis of right lower limb (principal)
CPT/HCPCS: 85025; 86140

== ENCOUNTER → 2020-07-10 13:34 | Outpatient (BNVA) | payer MEDICARE, MEDICAID, SELFPAY | PROVIDERS: PCP Family Medicine; Referring Provider Family Medicine; Visit Provider Nurse Practitioner Gerontology | DX: R33.9 Retention of urine, unspecified (principal); Z93.59 Other cystostomy status | CPT/HCPCS: 51705 ==

== ENCOUNTER → 2020-08-08 13:48 | Outpatient (BNVA) | payer MEDICARE, MEDICAID, SELFPAY | PROVIDERS: PCP Family Medicine; Referring Provider Family Medicine; Visit Provider Urology | DX: R33.8 Other retention of urine (principal); Z93.59 Other cystostomy status | CPT/HCPCS: 51705; 99213 ==

== ENCOUNTER 2020-10-05 15:28 | Outpatient (REF) | payer MEDICARE, MEDICAID, SELFPAY ==
[2020-10-05 13:58] LABS: Anion Gap 9.4 mmol/L (3-11); BUN 31 mg/dL (7-18); CO2 31.6 mmol/L (21.0-32.0); CREATININE 1.1 mg/dL (0.70-1.30); Calcium 9.4 mg/dL (8.5-10.1); Chloride 102 mmol/L (98-107); Glucose 118 mg/dL (74-106); Potassium 3.6 mmol/L (3.5-5.1); Sodium 143 mmol/L (136-145)
== END 2020-10-05 15:29 | disposition home or self-care (01) ==
LOC: LBN 15:28
PROVIDERS: PCP Family Medicine; Visit Provider Family Medicine
DX: I50.32 Chronic diastolic (congestive) heart failure (principal); R60.0 Localized edema
CPT/HCPCS: 80048

== ENCOUNTER 2020-12-11 15:23 | Outpatient (REF) | payer MEDICARE, MEDICAID, SELFPAY | END 2020-12-11 15:24 | disposition home or self-care (01) | LOC: LBN 15:23 | PROVIDERS: PCP Family Medicine; Visit Provider Family Medicine | DX: R82.998 Other abnormal findings in urine (principal); Z93.59 Other cystostomy status; R33.9 Retention of urine, unspecified | CPT/HCPCS: 81003; 87086 ==

== ENCOUNTER 2021-01-13 16:48 | Outpatient (REF) | payer MEDICARE, MEDICAID, SELFPAY ==
[2021-01-13 17:46] LABS: Bilirubin Negative (Negative); Blood Small (Negative); Clarity Clear (Clear); Glucose Negative (Negative); Ketones Negative (Negative); Leukocyte Esterase Small (Negative); Nitrite Negative (Negative); Specific Gravity 1.015 (1.005-1.025); Urobilinogen 0.2 EU/dL (Up TO 0.2); pH 6.5 (5-8)
[2021-01-13 18:30] LABS: Bacteria Negative HPF (Negative); C & S Indicated? Yes; Casts Negative LPF (Negative); Crystals Negative HPF (Negative); Epithelial Cells Negative HPF (Negative); Mucus Negative (Negative); Other Cells Negative (Negative); RBC Negative HPF (0-2)
== END 2021-01-13 16:49 | disposition home or self-care (01) ==
LOC: LBN 16:48
PROVIDERS: PCP Family Medicine; Visit Provider Family Medicine
DX: R82.998 Other abnormal findings in urine (principal)
CPT/HCPCS: 87077; 81003; 81015; 87086; 87186

== ENCOUNTER 2021-02-09 07:32 | Outpatient (CLI) | payer MEDICARE, MEDICAID, SELFPAY ==
--- NOTE | 2021-02-09 07:00 | DI.US_ITS ---
Exam(s) US EXTREMITY VENOUS BI EXAM: US EXTREMITY VENOUS BI CLINICAL HISTORY: H/O L sided DVT, now with worsening b/l edema,SOB,R06.02,I82.503 TECHNIQUE: Grayscale, color, and doppler imaging of the deep venous system of both lower extremities was performed. COMPARISON: US US EXTREMITY VENOUS BI from 07/01/2019 FINDINGS: LEFT SIDE: The left common femoral vein is patent. However, there is lack of normal compression in the proximal femoral vein as well as within the profundal femoral vein, consistent with DVT at these levels. The mid and distal left femoral veins exhibit normal compression augmentation as does the popliteal vein . Also normal compression augmentation below the knee level. The left greater saphenous vein is patent RIGHT-SIDE: This side there is small area of echogenic thrombus noted in the proximal aspect of the right greater saphenous vein just below the saphenofemoral junction. However, this is small and echogenic and juarez s not appear acute. The saphenous vein at this level is compressible. The right common femoral vein is patent as is the profundal femoral vein and proximal right femoral v ein. The mid and distal right femoral vein are thin and noncompressible, suspicious for thrombus the rein. The right popliteal vein and calf veins are. IMPRESSION: 1. Positive study. There is evidence of DVT above the knee in the left lower extremity, specificall y in the proximal left femoral vein and ipsilateral profunda femoral vein. 2. Probable DVT on the right side in the mid and distal femoral vein above the knee. 3. Also focal intraluminal thrombus in the upper the aspect of the right greater saphenous vein just below the saphenofemoral junction. This, however, does not have an acute appearance and is not occl usive. DATA REPOSITORY:
== END 2021-02-09 07:52 ==
PROVIDERS: PCP Family Medicine; Visit Provider Family Medicine
DX: I82.512 Chronic embolism and thrombosis of left femoral vein (principal); R06.02 Shortness of breath; I82.811 Embolism and thrombosis of superficial veins of right lower extremity
CPT/HCPCS: 93970

== ENCOUNTER 2021-02-11 02:25 | Outpatient (CLI) | payer MEDICARE, MEDICAID, SELFPAY ==
[2021-02-11 15:08] LABS: CREATININE 1.5 mg/dL (0.70-1.30); Estimated GFR 47.27 (mL/min/1.73m2)
[2021-02-11] MEDS: Omnipaque 350 MG/ML 100 ML BTL IJ (15:36)
[2021-02-11] MEDS: Normal Saline - Diluent 50 ML VIAL IV (15:37)
--- NOTE | 2021-02-11 15:40 | DI.CT_ITS ---
Exam(s) CT CHEST PE CTA EXAM: CT CHEST PE CTA CLINICAL HISTORY: B/L new DVTs, some dyspnea, r/o PE,THROMBOSIS,I82.811,I82.412. TECHNIQUE: Imaging Protocol: CT angiography of the chest was performed using pulmonary embolus casey col. Multi planar reconstructions were performed. CONTRAST MATERIAL: Intravenous: Omnipaque 350 Contrast volume: 100 cc COMPARISON: CT CT LUMBAR SPINE RECONS from 06/29/2019 FINDINGS: CHEST: PULMONARY ARTERIES: There are no intraluminal filling defects to suggest acute pulmonary emboli. LUNGS: There is infiltrate in the right lower lobe posterior basal segment. Superimposed upon COPD f indings. No pleural effusions. Mild increased markings are noted in the basal segments of the left lower lobe. No pleural effusion. MEDIASTINUM: There is no hilar nor mediastinal adenopathy. Visualized thyroid unremarkable. CARDIAC: Cardiomegaly. No pericardial effusion. Caliber thoracic aorta is within normal limits. No dissection. There is no significant shift of the interventricular septum. PARTIALLY VISUALIZED UPPERMOST ABDOMEN: Gallbladder surgically absent. No significant adrenal masses . OSSEOUS: No significant osseous lesions.. IMPRESSION: 1. No evidence of acute pulmonary emboli. No evidence of pulmonary infarction. 2. COPD findings and there is some infiltrate in the posterior basal segment of right lower lobe. No pleural effusions. No obvious intrathoracic adenopathy. 3. Cardiomegaly. No pericardial effusion. RADIATION DOSE DELIVERED: 543.68mGy.cm Total DLP DATA REPOSITORY: All CT scans at this facility are submitted to the National Radiology Data Registry (NRDR) Dose Index Registry (DIR) with the [employer] (ACR). RADIATION OPTIMIZATION: All CT scans at this facility use at least one of these dose optimization te chniques: automated exposure control; mA and/or kV adjustment per patient size (includes targeted exa ms where dose is matched to clinical indication); or iterative reconstruction.
--- NOTE | 2021-02-11 16:23 | DI.VRAD_ITS ---
PROCEDURE INFORMATION: Exam: CTA Chest With Contrast Exam date and time: 02/11/2021 3:36 PM Age: 65 years old Clinical indication: Shortness of breath; Patient HX: New onset bilateral dvt's, SOB TECHNIQUE: Imaging protocol: Computed tomographic angiography of the chest with contrast. 3D rendering (Not supervised by radiologist): MIP and/or 3D reconstructed images were created by the technologist. Radiation optimization: All CT scans at this facility use at least one of these dose optimization techniques: automated exposure control; mA and/or kV adjustment per patient size (includes targeted exams where dose is matched to clinical indication); or iterative reconstruction. Contrast material: OMNIPAQUE 350; Contrast volume: 100 ml; Contrast route: INTRAVENOUS (IV); COMPARISON: CT CHEST/ABD/PEL W 06/29/2019 5:45 AM FINDINGS: Pulmonary arteries: There is no evidence of a pulmonary embolus. There is no evidence of a pulmonary embolus. Aorta: There are arteriosclerotic changes of the aorta. Thyroid: The thyroid gland is within normal limits. Lungs: The tracheobronchial tree is patent bilaterally. There are bilateral emphysematous changes. There are atelectatic changes at the right lung base. Pleural spaces: Unremarkable. No pneumothorax. No pleural effusion. Heart: The heart and pericardium are within normal limits. Lymph nodes: No enlarged lymph nodes. Liver: There are again noted small cysts within the caudate lobe of the liver. These were present on the earlier study. There are not seen to the same advantage is on the prior study. Gallbladder and bile ducts: The patient is status post cholecystectomy. Spleen: There are multiple calcifications within the spleen which are secondary to old granulomatous disease. Kidneys and ureters: There is a complex midpole right renal lesion measuring approximately 2.7 cm. Bones/joints: There is a dextroscoliosis of the thoracolumbar spine. There are degenerative changes of the thoracic and lumbar spines. Soft tissues: Unremarkable. IMPRESSION: 1. No evidence of a pulmonary embolus. 2. Bilateral emphysematous changes. Atelectatic changes at the right lung base. 3. Complex midpole right renal lesion will need further evaluation with a CT scan of the kidneys pre and postcontrast administration utilizing thin sections through the kidneys to assess for any enhancement. 4. Small cysts are again noted within the caudate lobe of the liver. These are not seen to the same advantage as on earlier studies. 5. Status post cholecystectomy. 6. Findings consistent with old granulomatous disease. 7. Osseous findings as above. Dictated and Authenticated by: Damien Alonso MD. Ordering:CM Urrutia MD
== END 2021-02-11 02:45 ==
PROVIDERS: PCP Family Medicine; Visit Provider Family Medicine
DX: J98.11 Atelectasis; N28.1 Cyst of kidney, acquired; K76.89 Other specified diseases of liver; R06.02 Shortness of breath
CPT/HCPCS: 71275; 82565; J3490

== ENCOUNTER 2021-02-27 11:17 | Outpatient (REF) | payer MEDICARE, MEDICAID, SELFPAY ==
[2021-02-27 16:59] LABS: ALT 41 U/L (16-63); AST 29 U/L (15-37); Albumin 3.6 g/dL (3.4-5.0); Alkaline Phosphatase 118 U/L (46-116); Anion Gap 7.1 mmol/L (3-11); BUN 25 mg/dL (7-18); Bilirubin, Total 0.5 mg/dL (0.2-1.0); CO2 31.9 mmol/L (21.0-32.0); CREATININE 1.2 mg/dL (0.70-1.30); Calcium 9.1 mg/dL (8.5-10.1); Chloride 103 mmol/L (98-107); Glucose 114 mg/dL (74-106); Potassium 3.8 mmol/L (3.5-5.1); Sodium 142 mmol/L (136-145); Total Protein 7.9 g/dL (6.4-8.2)
== END 2021-02-27 11:18 | disposition home or self-care (01) ==
LOC: LBN 11:17
PROVIDERS: PCP Family Medicine; Visit Provider Family Medicine
DX: R60.9 Edema, unspecified (principal)
CPT/HCPCS: 80053

== ENCOUNTER 2021-02-28 13:08 | Outpatient (REF) | payer MEDICARE, MEDICAID, SELFPAY ==
[2021-02-28 13:57] LABS: Total Volume 3200 ml
== END 2021-02-28 13:09 | disposition home or self-care (01) ==
LOC: LBN 13:08
PROVIDERS: PCP Family Medicine; Visit Provider Family Medicine
DX: R60.9 Edema, unspecified (principal); R80.9 Proteinuria, unspecified
CPT/HCPCS: 81050; 84155

== ENCOUNTER 2021-03-17 13:58 | Outpatient (REF) | payer MEDICARE, MEDICAID, SELFPAY ==
[2021-03-20 14:19] LABS: Albumin, Urine % 40.1 %; Globulins, Urine % 59.9 %; Immunotyping, Urine (See Note); Total Protein Urine 20 mg/dL (See Note)
== END 2021-03-17 13:59 | disposition home or self-care (01) ==
LOC: LBN 13:58
PROVIDERS: PCP Family Medicine; Visit Provider Family Medicine
DX: R80.1 Persistent proteinuria, unspecified (principal)
CPT/HCPCS: 84156; 84166; 86335; 81050

== ENCOUNTER 2021-03-24 00:10 | Outpatient (CLI) | payer MEDICARE, MEDICAID, SELFPAY ==
--- NOTE | 2021-03-24 07:00 | DI.US_ITS ---
Exam(s) US RENAL EXAM: US RENAL CLINICAL HISTORY: F/U LIKELY RENAL CYSTS ON CT, FLUID RETENTION, R60.9. TECHNIQUE: Gómez scale, color and spectral Doppler were used. COMPARISON: CT CT LUMBAR SPINE RECONS from 06/29/[address] LUMBAR SPINE RECONS from 06/29/[address] CHEST/ABD/PEL W from 06/29/[address] CHEST/ABD/PEL W from 06/29/[address] CHEST PE CTA from 02/11/[address] CHEST PE CTA from 02/11/2021 FINDINGS: Examination limited by patient positioning. Renal size in cm: Right: 10.4. Left: . Echogenicity: Normal. Hydronephrosis: No. Cyst or mass: There is a 2.1 x 1.7 x 1.7 cm hypoechoic lesion in the central right kidney. Due to th e patient body habitus and position while scanning in the wheelchair, further evaluation is limited s onographically. Nephrolithiasis: No. Other findings: None. Bladder:Nondistended. The patient has a suprapubic catheter. Ureteral jets: Right: Not visualized on this examination. Left: Not visualized on this examination. Renal color flow: Symmetric and within normal limits. IMPRESSION: 1. Limited examination due to patient positioning. 2. 2.1 x 1.7 x 1.7 cm indeterminate hypoechoic lesion in the central right kidney. A CT scan or MRI should be considered for further evaluation. 3. Urinary bladder not well evaluated. The patient is a suprapubic catheter in the bladder was not d istended during the examination. DATA REPOSITORY:
== END 2021-03-24 00:30 ==
PROVIDERS: PCP Family Medicine; Visit Provider Family Medicine
DX: R60.9 Edema, unspecified (principal); N28.89 Other specified disorders of kidney and ureter; R93.9 Diagnostic imaging inconclusive due to excess body fat of patient; Z93.51 Cutaneous-vesicostomy status; Z99.3 Dependence on wheelchair
CPT/HCPCS: 76770

== ENCOUNTER 2021-03-26 17:10 | Outpatient (REF) | payer MEDICARE, MEDICAID, SELFPAY ==
[2021-03-26 20:06] LABS: Bilirubin Negative (Negative); Blood Small (Negative); Clarity Sl Cloudy (Clear); Glucose Negative (Negative); Ketones Negative (Negative); Leukocyte Esterase Small (Negative); Nitrite Positive (Negative); Urobilinogen 0.2 EU/dL (Up TO 0.2); pH 7.5 (5-8)
[2021-03-26 20:20] LABS: Bacteria Moderate HPF (Negative); C & S Indicated? Yes; Casts Negative LPF (Negative); Crystals Negative HPF (Negative); Epithelial Cells Few HPF (Negative); Mucus Negative (Negative)
== END 2021-03-26 17:11 | disposition home or self-care (01) ==
LOC: LBN 17:10
PROVIDERS: PCP Family Medicine; Visit Provider Family Medicine
DX: N31.9 Neuromuscular dysfunction of bladder, unspecified (principal)
CPT/HCPCS: 81003; 81015; 87086

== ENCOUNTER 2021-03-28 10:34 | Outpatient (REF) | payer MEDICARE, MEDICAID, SELFPAY ==
[2021-03-28 11:07] LABS: Bilirubin Negative (Negative); Blood Small (Negative); Clarity Clear (Clear); Glucose Negative (Negative); Ketones Negative (Negative); Leukocyte Esterase Small (Negative); Nitrite Positive (Negative); Urobilinogen 0.2 EU/dL (Up TO 0.2); pH 7.5 (5-8)
[2021-03-28 11:15] LABS: Bacteria Few HPF (Negative); C & S Indicated? Yes; Casts 0-2 Coarse Granular LPF (Negative); Crystals Few Triple Phos HPF (Negative); Epithelial Cells Rare HPF (Negative); Mucus Trace (Negative)
[2021-03-29 15:26] LABS: COVID-19 RT-PCR UVMMC Result Negative (Negative)
== END 2021-03-28 10:35 | disposition home or self-care (01) ==
LOC: LBN 10:34
PROVIDERS: PCP Family Medicine; Visit Provider Family Medicine
DX: R09.89 Other specified symptoms and signs involving the circulatory and respiratory systems (principal); N31.9 Neuromuscular dysfunction of bladder, unspecified; Z20.822 Contact with and (suspected) exposure to COVID-19
CPT/HCPCS: U0003; U0005; 81003; 81015; 87086

== ENCOUNTER 2021-04-02 19:03 | Outpatient (REF) | payer MEDICARE, MEDICAID, SELFPAY ==
[2021-04-02 15:44] LABS: Abs Immature Grans 0.06 10^3/uL (0.0-0.06); Absolute Basophil Count 0.03 10^3/uL (0.0-0.2); Absolute Eosinophil Count 0.17 10^3/uL (0.0-0.7); Absolute Lymphocyte Count 1.09 10^3/uL (1.2-3.4); Absolute Monocyte Count 0.71 10^3/uL (0.1-0.8); Absolute Neutrophil Count 4.37 10^3/uL (1.2-6.7); Basophils % 0.5; Eosinophils % 2.6; HGB 13.1 g/dL (13.5-17.5); Immature Grans % 0.9; MCH 31.3 pg (27.0-33.0); MCHC 31.2 % (32.0-36.0); MCV 100.2 fL (80-95); MPV 10.2 fL (8.0-11.0); Nucleated RBC 0 %; Platelet Count 219 10^3/uL (130-400); RBC 4.19 10^6/uL (4.36-5.78); RDW 13.6 % (11.8-14.1); RDW-SD 50.3 fL; WBC 6.43 10^3/uL (4.4-10.8)
== END 2021-04-02 19:04 | disposition home or self-care (01) ==
LOC: LBN 19:03
PROVIDERS: PCP Family Medicine; Visit Provider Internal Medicine
DX: N39.9 Disorder of urinary system, unspecified (principal); R31.29 Other microscopic hematuria
CPT/HCPCS: 85025; 87086

== ENCOUNTER 2021-04-21 01:11 | Outpatient (CLI) | payer MEDICARE, MEDICAID, SELFPAY ==
[2021-04-21 10:22] LABS: BUN 24 mg/dL (7-18); CREATININE 1.1 mg/dL (0.70-1.30); Calcium 9.3 mg/dL (8.5-10.1); Chloride 99 mmol/L (98-107); Glucose 99 mg/dL (74-106); Potassium 3.7 mmol/L (3.5-5.1); Sodium 138 mmol/L (136-145)
--- NOTE | 2021-04-21 10:45 | DI.CT_ITS ---
Exam(s) CT ABDOMEN WO/W EXAM: CT ABDOMEN WO/W CLINICAL HISTORY: Hypoechoic lesion seen on US,N28.9,H/O B CELL LYMPHOMA TECHNIQUE: Imaging Protocol: Axial computed tomography images with coronal and sagittal reformatted images were created and reviewed CONTRAST MATERIAL: Intravenous: Omnipaque 350 Contrast volume:100 mL Oral: No COMPARISON: CT CT LUMBAR SPINE RECONS from 06/29/[address] LUMBAR SPINE RECONS from 06/29/[address] CHEST/ABD/PEL W from 06/29/[address] CHEST/ABD/PEL W from 06/29/[address] CHEST PE CTA from 02/11/2021 US US RENAL from 03/24/2021 US US RENAL from 03/24/2021 FINDINGS: ABDOMEN: Lung Bases: There is atelectasis or scarring in the lung bases. Liver: Several homogeneously hypodense simple cysts. No follow-up is recommended. No solid hepatic masses are seen. There is diffuse decreased attenuation of the liver consistent with fatty infiltrat ion. Portal, Superior Mesenteric, and Splenic Veins: Unremarkable. Gallbladder and Biliary Tract: Status post cholecystectomy. No biliary ductal dilatation. Pancreas: There is decreased attenuation in the head of the pancreas. It measures 2.4 x 2.5 cm. Thi s area should be further evaluated with an MRI of the abdomen without and with contrast. Spleen: Calcified granuloma are present. Adrenals: No masses seen. Kidneys: Normal size, contour and axis. No radiodense stones or obstructive uropathy. There are bilat eral simple renal cysts. The largest is in the midpole of the right kidney and measures 1.3 cm. No solid renal masses are present. Abdominal Aorta: Abdominal portion non-dilated. Atherosclerosis. Bowel: No obstruction or bowel wall thickening. No evidence of appendicitis. Small hiatal hernia. T here are few scattered colonic diverticula, but no evidence of acute diverticulitis. Peritoneal Cavity: No ascites, collection or mesenteric inflammatory response. No free air. Lymph Nodes: Within normal limits. Bones: Degenerative changes are seen in spine. There is a left convex scoliosis. Soft Tissues: Unremarkable. IMPRESSION: 1. No evidence of a solid renal mass. Bilateral simple renal cysts. No follow-up is recommended. 2. 2.4 x 2.5 cm area of decreased attenuation in the head of the pancreas. MRI of the abdomen withou t and with contrast is recommended to exclude a pancreatic mass. RADIATION DOSE DELIVERED: 1,696.88mGy.cm Total DLP DATA REPOSITORY: All CT scans at this facility are submitted to the National Radiology Data Registry (NRDR) Dose Index Registry (DIR) with the [employer] (ACR). RADIATION OPTIMIZATION: All CT scans at this facility use at least one of these dose optimization te chniques: automated exposure control; mA and/or kV adjustment per patient size (includes targeted exa ms where dose is matched to clinical indication); or iterative reconstruction.
[2021-04-21] MEDS: Omnipaque 350 MG/ML 100 ML BTL IJ (11:09)
== END 2021-04-21 01:31 ==
PROVIDERS: PCP Family Medicine; Visit Provider Family Medicine
DX: N28.89 Other specified disorders of kidney and ureter (principal); K76.89 Other specified diseases of liver; K76.0 Fatty (change of) liver, not elsewhere classified; N28.1 Cyst of kidney, acquired; K44.9 Diaphragmatic hernia without obstruction or gangrene; K86.89 Other specified diseases of pancreas
CPT/HCPCS: 80048; 74170; J3490

== ENCOUNTER → 2021-07-09 12:52 | Outpatient (BNVA) | payer MEDICARE, MEDICAID, SELFPAY | PROVIDERS: PCP Family Medicine; Referring Provider Family Medicine; Visit Provider Urology | DX: R33.8 Other retention of urine (principal); Z93.59 Other cystostomy status | CPT/HCPCS: 99213 ==

== ENCOUNTER 2021-07-28 15:35 | Outpatient (REF) | payer MEDICARE, MEDICAID, SELFPAY ==
[2021-07-28 18:54] LABS: Anion Gap 9.2 mmol/L (3-11); CO2 35.8 mmol/L (21.0-32.0); CREATININE 1.8 mg/dL (0.70-1.30); Chloride 81 mmol/L (98-107); Estimated GFR 38.18 (mL/min/1.73m2); Glucose 148 mg/dL (74-106); Sodium 126 mmol/L (136-145)
[2021-07-28 20:04] LABS: BUN 92 mg/dL (7-18); Potassium 2.5 mmol/L (3.5-5.1)
== END 2021-07-28 15:36 | disposition home or self-care (01) ==
LOC: LBN 15:35
PROVIDERS: PCP Family Medicine; Visit Provider Family Medicine
DX: N04.9 Nephrotic syndrome with unspecified morphologic changes (principal)
CPT/HCPCS: 80048

== ENCOUNTER 2021-07-28 21:43 | Inpatient (IN) | payer MEDICARE, MEDICAID, SELFPAY ==
[2021-07-28] VITALS (20 sets, daily range): BP systolic 93–139; BP diastolic 56–88; PULSE 50–752; RESP 13–29; TEMP 37; O2SAT 89–95
--- NOTE | 2021-07-28 21:30 | RT.EKG_ITS ---
APPROVED REPORT Exam: Resting ECG Reason for Exam: electrolyte abnormality Patient Location: E HR:61 bpm ECG Measurements Heart Rate 61 AXIS NV 185 P 43 QRSd 116 QRS -36 QT 445 T 30 QTc 450 Conclusion Sinus rhythm...normal P axis, V-rate 60- 99
--- NOTE | 2021-07-28 22:00 | DI.RAD_ITS ---
Exam(s) XR PORTABLE CHEST AP EXAM: XR PORTABLE CHEST AP CLINICAL HISTORY: ?edema TECHNIQUE: 2D digital imaging was performed. COMPARISON: CT CT CHEST PE CTA from 02/11/2021 FINDINGS: LUNGS: Mild scarring, otherwise clear. No pleural abnormality seen. HEART: Normal. MEDIASTINUM: Normal. BONES: Scoliosis and degenerative changes. IMPRESSION: No acute pulmonary findings. DATA REPOSITORY: RADIATION DOSE DELIVERED:
[2021-07-28 22:01] LABS: Source Nasal/Nares
--- NOTE | 2021-07-28 22:02 | W.ED.GENAD ---
Discharge Plan Disposition Patient Disposition: [facility] INPATIENT Condition: Stable Discharge Details Clinical Impression: Hypokalemia, Elevated BUN, Hyponatremia Primary Care Provider: Renan Garcia ED Provider: Velasquez Rai [place] Meds and New Rx's Prescriptions: No Action polyethylene glycol 3350 17 gram powder in packet 17 g PO DAILY PRN PRN (Reason: Constipation) Qty: 100 3RF torsemide 20 mg tablet 60 mg PO BID Qty: 540 3RF metolazone 10 mg tablet 10 mg PO .COMPLEX Qty: 4 0RF Rx Instructions: 10 mg PO t1 tab on Sun and Thurs for 2 weeks; (DME) Pull-ups Large See Rx Instructions .Route .MEDSUPPLY Qty: 200 6RF Rx Instructions: As directed BID ondansetron 8 mg tablet,disintegrating 8 mg PO Q8H Qty: 270 3RF (DME) underpads [Bed Underpads] Pad See Rx Instructions .ROUTE .MEDSUPPLY Qty: 40 12RF Rx Instructions: As directed, for diarrhea or urinary leakage venlafaxine 50 mg tablet See Rx Instructions PO DAILY Qty: 90 0RF Rx Instructions: t1 tab qd for 7 days, then if tolerated, increase to BID PO daily; (DME) nebulizers Misc See Rx Instructions .ROUTE .MEDSUPPLY Qty: 1 0RF Rx Instructions: As directed ascorbic acid (vitamin C) 500 mg tablet 500 mg PO TID Qty: 270 3RF Rx Instructions: we are increasing his dose from 500 mg daily to 500 mg TID folic acid 1 mg tablet 1 mg PO DAILY 0RF Rx Instructions: per [facility] discharge dated 10/04/19 [facility] simethicone [Gas Relief (simethicone)] 80 mg tablet,chewable 40 mg PO Q6H PRN 0RF Rx Instructions: per [facility] discharge dated 10/04/19 [facility] albuterol sulfate 2.5 mg /3 mL (0.083 %) solution for nebulization 2.5 mg UPD Q2H PRN PRN (Reason: shortness of breath or wheezing) Qty: 90 0RF budesonide-formoterol [Symbicort] 160-4.5 mcg/actuation HFA aerosol inhaler 2 puff inhalation Q12H Qty: 10.2 3RF spironolactone 25 mg tablet 25 mg PO DAILY Qty: 30 6RF cholecalciferol (vitamin D3) 10 mcg (400 unit) tablet 20 mcg PO DAILY Qty: 180 3RF Rx Instructions: 800 U daily, per [facility] discharge dated 10/04/19 [facility] finasteride 5 mg tablet 5 mg PO DAILY Qty: 90 4RF Jevity 1.2 Lucas 0.06 gram-1.2 kcal/mL liquid 237 ml PO BID Qty: 5688 12RF Super Thera Ching M Tablet 1 tab PO DAILY Qty: 90 3RF potassium chloride 10 mEq tablet extended release 10 meq PO DAILY Qty: 90 3RF sennosides-docusate sodium [Senna-S] 8.6-50 mg tablet 1 tab-cap PO BID Qty: 180 3RF calcium polycarbophil [FiberCon] 625 mg tablet 1,250 mg PO DAILY Qty: 90 3RF ferrous sulfate 325 mg (65 mg iron) tablet See Rx Instructions .ROUTE .COMPLEX Qty: 28 3RF Dose Instruction: TAKE 1 TABLET BY MOUTH DAILY Rx Instructions: TAKE 1 TABLET BY MOUTH DAILY gabapentin 100 mg capsule See Rx Instructions .ROUTE .COMPLEX Qty: 168 6RF Dose Instruction: TAKE 2 CAPSULES BY MOUTH THREE TIMES A DAY Rx Instructions: TAKE 2 CAPSULES BY MOUTH THREE TIMES A DAY Eliquis 5 mg tablet 5 mg PO BID 0RF acetaminophen [Tylenol] 325 mg Tablet 325 - 650 mg PO Q4H PRN PRNQty: 0 0RF Medical Decision Making 66 yo male with hx of multiple medical problems including nephrotic syndrome, prior dvt, b cell lymphoma, chronic suprapubic catheter, copd, CHFpEF, who is in a wheel chair most days, comes in with ems after he was called about abnormal lab values done today that showed a K of 2.5 and BUN over 90. HE states he has been feelingokay other than some mild changes in taste in his mouth. Denies cough, fevers, chills, chest pain, n/v, abdominal pain. His catheter has been draining urine normally. He arrives stable, caox4 and moving all extremities equally with clear speech. He has no abdominal tenderness, he does have pitting edema of both lower legs up to the mid tibia, clear urine in his scales bag. I suspect this could be lack of fluids vs nephrotic syndrome, will check urine studies, repeat chemistries including magnesium and reassess. labs show K of 2.6, bun over 90, Na of 126. HE is stable, he apparently started metolazone recently and suspect this is the primary cause of lab abnormalities. Discussed with Dr. Bacon who agrees with admission for ivf and trending bun/K. His ua did show evidence of infection but is likely colonization from his catheter, no changes in urinary color per patient and has no fevers or other infectious symptoms, will hold on antibiotics at this time Differential Diagnosis Differential Diagnosis: nephrotic syndrome, dehydration Medical Records Medical records reviewed: Yes I reviewed the patient's medical records. Imaging Data Radiologic Study: Attestation: I personally reviewed and interpreted this imaging study as follows: Imaging: X-Ray My impression: no acute findings Lab Data Lab results reviewed: Yes I reviewed the patient's lab results. ECG Data Attestation: I personally reviewed and interpreted this ECG (s) as follows: Prior ECG tracings: available for review Interpretation: sinus rhythm, rate of 60, pr 185, no acute st t wave ischemic findings HPI General Mode of arrival: EMS. Date/Time Provider Initiated Documentation: 07/28/21 21:54. Limitations to Documentation: no limitations. Information obtained by: patient. History of Present Illness 66 year old M presents to the emergency department with the chief complaint of abnormal lab values, Patient started experiencing this day(s) and it has been constant. improves with No relieving factors improve symptom(s), No exacerbating factors reported . Patient did receive the following treatments prior to arrival, none Related Data Home Medications Medication Instructions Recorded Confirmed acetaminophen 325 mg tablet 325 - 650 mg PO Q4H PRN PRN #0 tab 07/02/19 07/28/21 (Tylenol) folic acid 1 mg tablet 1 mg PO DAILY 10/05/19 07/24/21 simethicone 80 mg chewable tablet 40 mg PO Q6H PRN tab 10/05/19 07/24/21 (Gas Relief (simethicone)) Pull-ups #200 ea 05/29/20 07/24/21 ondansetron 8 mg disintegrating 8 mg PO Q8H #270 tab 05/29/20 07/24/21 tablet polyethylene glycol 3350 17 gram 17 g PO DAILY PRN PRN #100 ea 06/03/20 07/24/21 oral powder packet venlafaxine 50 mg tablet See Rx Instructions PO DAILY #90 12/25/20 07/24/21 tab nebulizers #1 ea 02/05/21 07/24/21 albuterol sulfate 2.5 mg (3 mL) UPD Q2H PRN PRN #90 02/12/21 07/28/21 ml budesonide-formoterol HFA 160 2 puff INHALATION Q12H #10.2 g 03/26/21 07/28/21 mcg-4.5 mcg/actuation aerosol inhaler (Symbicort) spironolactone 25 mg tablet 25 mg PO DAILY #30 tab 04/06/21 07/28/21 underpads (Bed Underpads) #40 ea 05/01/21 07/24/21 cholecalciferol (vitamin D3) 10 20 mcg PO DAILY #180 tab 05/07/21 07/28/21 mcg (400 unit) tablet finasteride 5 mg tablet 5 mg PO DAILY #90 tab-cap 05/07/21 07/28/21 lactose-reduced food with fiber 237 ml PO BID #5688 ml 05/07/21 07/24/21 0.06 gram-1.2 kcal/mL oral liquid (Jevity 1.2 Lucas) multivitamin,tx-minerals (Super 1 tab PO DAILY #90 tab 05/07/21 07/28/21 Thera Ching M) potassium chloride 10 mEq 10 meq PO DAILY #90 tab 05/07/21 07/28/21 tablet,extended release sennosides 8.6 mg-docusate sodium 1 tab-cap PO BID #180 tab 05/07/21 07/28/21 50 mg tablet (Senna-S) calcium polycarbophil 625 mg 1,250 mg PO DAILY #90 tab 05/11/21 07/28/21 tablet (FiberCon) ferrous sulfate 325 mg (65 mg See Rx Instructions .ROUTE 06/02/21 07/28/21 iron) tablet .COMPLEX #28 tab torsemide 20 mg tablet 60 mg PO BID #540 tab 07/07/21 07/28/21 ascorbic acid (vitamin C) 500 mg 500 mg PO TID #270 tab 07/09/21 07/28/21 tablet gabapentin 100 mg capsule See Rx Instructions .ROUTE 07/24/21 07/28/21 .COMPLEX #168 cap metolazone 10 mg tablet 10 mg PO .COMPLEX #4 tab 07/24/21 07/28/21 apixaban 5 mg tablet (Eliquis) 5 mg PO BID 07/28/21 07/28/21 Previous Rx's Medication Instructions Recorded acetaminophen 325 mg tablet 325 - 650 mg PO Q4H PRN PRN #0 tab 07/02/19 (Tylenol) Pull-ups #200 ea 05/29/20 ondansetron 8 mg disintegrating 8 mg PO Q8H #270 tab 05/29/20 tablet polyethylene glycol 3350 17 gram 17 g PO DAILY PRN PRN #100 ea 06/03/20 oral powder packet venlafaxine 50 mg tablet See Rx Instructions PO DAILY #90 12/25/20 tab nebulizers #1 ea 02/05/21 albuterol sulfate 2.5 mg (3 mL) UPD Q2H PRN PRN #90 02/12/21 ml budesonide-formoterol HFA 160 2 puff INHALATION Q12H #10.2 g 03/26/21 mcg-4.5 mcg/actuation aerosol inhaler (Symbicort) spironolactone 25 mg tablet 25 mg PO DAILY #30 tab 04/06/21 underpads (Bed Underpads) #40 ea 05/01/21 cholecalciferol (vitamin D3) 10 20 mcg PO DAILY #180 tab 05/07/21 mcg (400 unit) tablet finasteride 5 mg tablet 5 mg PO DAILY #90 tab-cap 05/07/21 lactose-reduced food with fiber 237 ml PO BID #5688 ml 05/07/21 0.06 gram-1.2 kcal/mL oral liquid (Jevity 1.2 Lucas) multivitamin,tx-minerals (Super 1 tab PO DAILY #90 tab 05/07/21 Thera Ching M) potassium chloride 10 mEq 10 meq PO DAILY #90 tab 05/07/21 tablet,extended release sennosides 8.6 mg-docusate sodium 1 tab-cap PO BID #180 tab 05/07/21 50 mg tablet (Senna-S) calcium polycarbophil 625 mg 1,250 mg PO DAILY #90 tab 05/11/21 tablet (FiberCon) ferrous sulfate 325 mg (65 mg See Rx Instructions .ROUTE 06/02/21 iron) tablet .COMPLEX #28 tab torsemide 20 mg tablet 60 mg PO BID #540 tab 07/07/21 ascorbic acid (vitamin C) 500 mg 500 mg PO TID #270 tab 07/09/21 tablet gabapentin 100 mg capsule See Rx Instructions .ROUTE 07/24/21 .COMPLEX #168 cap metolazone 10 mg tablet 10 mg PO .COMPLEX #4 tab 07/24/21 Allergies Allergy/AdvReac Type Severity Reaction Status Date / Time levofloxacin [From Levaquin] AdvReac Intermediate purpura Verified 07/28/21 21:59 Sulfa (Sulfonamide AdvReac Intermediate Itching Verified 07/28/21 21:59 Antibiotics) Seasonal Allegies Allergy Intermediate Runny nose Uncoded 07/28/21 21:59 General Stated Complaint: GenMedical DARRELL: 3 Review of Systems All systems reviewed & are unremarkable except as noted in HPI and below Constitutional Constitutional: Denies chills, Denies fever(s) and Denies weakness Eyes Eyes: Denies loss of vision ENT Ears, Nose, Mouth, and Throat: Denies change in voice Cardiovascular Cardiovascular: Denies chest pain and Denies dyspnea Respiratory Respiratory: Denies cough and Denies dyspnea Gastrointestinal Gastrointestinal: Denies abdominal pain, Denies nausea and Denies vomiting Genitourinary Genitourinary: Denies dysuria Musculoskeletal Musculoskeletal: Denies joint swelling Integumentary/Breasts Skin/Breast: Denies rash Neurologic Neurologic: Denies loss of vision and Denies weakness Psychiatric Psychiatric: Denies depression PFSH All Active Problems (Updated 07/28/21 @ 23:49 by Velasquez Rai MD) Hypokalemia (Acute) Elevated BUN (Acute) Hyponatremia (Acute) Nephrotic syndrome (Acute) Pancreatic lesion (Acute) Hypoattenuation seen on CT 05/09 Fluid retention (Acute) Thrombosis of right saphenous vein (Acute) Left femoral vein DVT (Acute) Anxiety and depression (Chronic) 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 (Acute) Stage IV, high risk, B cell lymphoma, NOS, with extra node involvement(bone, spinal cord,pleura) Hypertrophic toenail (Acute) Anemia (Chronic) Cor pulmonale (chronic) (Chronic) Suprapubic catheter (Chronic) Incontinence of bowel (Acute) Acute kidney injury (Acute ~09/28/19) due to methotrexate therapy Weakness of both lower extremities (Acute) Hyperuricemia (Acute) Paroxysmal A-fib (Acute) Dehydration (Acute) Limited code status (Acute) Pleural effusion (Acute) Abdominal lymphadenopathy (Acute) DVT (deep venous thrombosis) (Chronic) Mediastinal adenopathy (Acute) Lung mass (Acute) COPD exacerbation (Acute) Respiratory distress (Acute) Overgrown toenails (Acute) DJD (degenerative joint disease) (Chronic) Depressive disorder (Chronic) Crohn's disease (Chronic) Self Reported Venous stasis ulcer of ankle limited to breakdown of skin (Acute) Venous stasis dermatitis of both lower extremities (Acute) Pulmonary HTN (Chronic) Mitral regurgitation (Chronic) Diastolic dysfunction (Chronic) Lymphedema of both lower extremities (Chronic) Ischemic ulcer of right ankle, limited to breakdown of skin (Acute) Smoking greater than 40 pack years (Chronic) cont on smoking cessation 08/2019 quit smoking; quit 2019 Venous insufficiency of both lower extremities (Chronic) as above Left varicocele (Acute 05/09/17) Microscopic hematuria (Acute 02/03/16) Osteoarthritis of hip (Acute 12/14/12) Right hydrocele (Acute 02/04/17) Osteoarthritis of hip (Acute 01/14/14) Total hip arthroplasty by Dr. Jose Nieves 01/14/14; Ceramic head; press fit. Mitral valve prolapse (Chronic) Microscopic hematuria (Acute) Medical History (Updated 07/28/21 @ 23:49 by Velasquez Rai MD) Alcohol dependence in remission Anxiety BPH (benign prostatic hyperplasia) Cellulitis of right leg Gastroesophageal reflux disease Hearing loss Housing problems Hypercholesterolemia On anticoagulant therapy for chronic DVTs Osteoarthritis Right femoral vein DVT Tobacco use disorder Ulcer of right lower extremity Varicose veins of both lower extremities with complications Venous stasis ulcer of right lower leg with edema of right lower leg Surgical History Cholecystectomy (11/01/17) Colonoscopy - MAC EGD - MAC Extraction of cataract Repair of inguinal hernia Bilateral Repair of umbilical hernia Tonsillectomy and adenoidectomy Total replacement of hip bilateral Family History Mother Breast cancer Hypertension Father CHF (congestive heart failure) Social History (Updated 05/29/20 @ 14:36 by Tigist Hammond LPN) Smoking/Tobacco Use Status: Former Tobacco Use Quit Date: 08/23/19 Tobacco: How many years used: 50 Quit status: quit date established (06/29/2019) Smoking risk assessment performed?: Yes Alcohol Intake: former Year quit: 2007 Drug use: Never Substance use type: does not use Adopted: No Caregiver/Support person: Yes Foster care: No Household members: none Housing: apartment Number of Children: 3 Communication Needs: None Do you need help understanding health information?: Always current occupation: Disabled Sexually active: Yes Do you think of yourself as: straight/heterosexual Current gender identity: male What is your relationship status?: Panel score (0-1 are the most socially isolated patients): 0 What type of physical activity do you participate in: none Seatbelt use: always Do you feel safe at home: Yes Do you feel safe in your relationship?: Yes Exam Const General: no acute distress Orientation: alert HENMT Head: normal to inspection Ears: external ears normal General nose exam: external nose normal Mouth: moist mucous membranes Eyes General: appearance normal, both eyes and all related structures Neck Neck: normal visual inspection Resp Effort & Inspection: normal respiratory effort and able to speak in complete sentences Cardio Rate: regular rate Skin General skin exam: no rashes or lesions noted Neuro General: patient alert and patient oriented x3 Extrem General: capillary refill normal Psych Mental Status: mental status grossly normal Course Vital Signs Vital signs: Vital Signs Temperature 37.0 C 07/28/21 21:49 Pulse 64 07/28/21 21:49 Respiratory Rate 22 07/28/21 21:49 Blood Pressure 139/88 07/28/21 21:49 Pulse Oximetry 95 07/28/21 21:49 Temperature 37.0 C 07/28/21 21:49 Temperature Source Skin 07/28/21 21:49 Pulse 64 07/28/21 21:49 Respiratory Rate 18 07/28/21 21:54 Respiratory Effort Non-Labored 07/28/21 21:54 Respiratory Depth Normal 07/28/21 21:54 Respiratory Pattern Normal 07/28/21 21:54 Blood Pressure 139/88 07/28/21 21:49 Blood Pressure Position Supine 07/28/21 21:49 Pulse Oximetry 95 07/28/21 21:49 Oxygen Delivery Method Room Air 07/28/21 21:49 Oxygen Flow Rate 0 07/28/21 21:49 Pain Level 0 07/28/21 21:49 Lab/Test Results Lab/Test Results: Laboratory Tests Range/Units 07/28/21 21:45 COVID-19 Source Nasal/Nares
[2021-07-28 22:18] LABS: Abs Immature Grans 0.04 10^3/uL (0.0-0.06); Absolute Basophil Count 0.02 10^3/uL (0.0-0.2); Absolute Eosinophil Count 0.11 10^3/uL (0.0-0.7); Absolute Lymphocyte Count 2.41 10^3/uL (1.2-3.4); Absolute Monocyte Count 1.09 10^3/uL (0.1-0.8); Absolute Neutrophil Count 6.02 10^3/uL (1.2-6.7); Basophils % 0.2; Eosinophils % 1.1; HGB 14.2 g/dL (13.5-17.5); Immature Grans % 0.4; Lymphocytes % 24.9; MCH 31.3 pg (27.0-33.0); MCHC 33.8 % (32.0-36.0); MCV 92.7 fL (80-95); Monocytes % 11.2; Neutrophils % 62.2; Nucleated RBC 0 %; Platelet Count 187 10^3/uL (130-400); RBC 4.53 10^6/uL (4.36-5.78); RDW 13.4 % (11.8-14.1); RDW-SD 45.5 fL; WBC 9.69 10^3/uL (4.4-10.8)
[2021-07-28 22:30] LABS: Bilirubin Negative (Negative); Blood Small (Negative); Clarity Cloudy (Clear); Glucose Negative (Negative); Ketones Negative (Negative); Leukocyte Esterase Moderate (Negative); Nitrite Negative (Negative); Specific Gravity 1.015 (1.005-1.025); Urobilinogen 0.2 EU/dL (Up TO 0.2)
[2021-07-28 22:40] LABS: Bacteria Moderate HPF (Negative); C & S Indicated? Yes; Casts Negative LPF (Negative); Crystals Few Amorphous HPF (Negative); Epithelial Cells Rare HPF (Negative); Mucus Negative (Negative)
[2021-07-28 22:42] LABS: PTT Activated 29.2 sec (21.0-27.5); Prothrombin Time 10.3 sec (9.3-11.0)
[2021-07-28 22:45] LABS: ALT 79 U/L (16-63); AST 46 U/L (15-37); Albumin 3.9 g/dL (3.4-5.0); Alkaline Phosphatase 148 U/L (46-116); Anion Gap 6.9 mmol/L (3-11); Bilirubin, Direct 0.1 mg/dL (0.0-0.2); Bilirubin, Total 0.5 mg/dL (0.2-1.0); CO2 38.1 mmol/L (21.0-32.0); CREATININE 1.9 mg/dL (0.70-1.30); Calcium 10.3 mg/dL (8.5-10.1); Chloride 81 mmol/L (98-107); Creatine Kinase 426 U/L (39-308); Estimated GFR 35.87 (mL/min/1.73m2); Glucose 112 mg/dL (74-106); Magnesium 2.4 mg/dL (1.8-2.4); Sodium 126 mmol/L (136-145); TSH (W/Ref FT4) 1.87 uIU/mL (0.36-3.74)
[2021-07-28 22:47] LABS: PROTEIN 7.7 mg/dL
[2021-07-28 22:47] LABS: BUN 92 mg/dL (7-18); Potassium 2.6 mmol/L (3.5-5.1)
[2021-07-28 22:48] LABS: COVID-19 PCR Negative (Negative)
[2021-07-28] MEDS: POTASSIUM CHLORIDE 20 MEQ/100 ML BAG 50 MEQ IVPB (23:18)
[2021-07-28] MEDS: Normal Saline 1,000 ML 100 ML IV (23:18)
--- NOTE | 2021-07-28 23:45 | HPE_ITS ---
Date of service: 07/28/21 Time of Service: 23:45 Assessment and Plan Assessment and plan (1) Azotemia: Status: Acute Assessment and plan: Azotemia, with hypokjalemia and hyponatremia -- all no doubt due to recent Metalazone. Will hold diuretic, gently hydrate and replenish K. 2. Pyuria, probable UTI: await culture, empiric Rocephin, change SPT 3. Question ascites by exam: check U/S 4. Mild increase TAs w/o synthetic dysfunction: trend 5. Mild increase CPK: trend Reviewed ADs, requests Full Code History of Present Illness History of Present Illness Chief Complaint: sent in for abnormal labs Narrative: 66 male with multiple problems, including h/o nephrotic syndrome and chronic pedal edema. He reports he was started on Metalazone about 10 days ago. Sent for routine labs today and K 2.5 and BUN 92 noted and was asked to come to ER. In ER patient states he actually feels fine except he has noted a degree of lightheadedness. Labs of note for K 2.6, BUN 92, creat 1.9; U/A with 10-20 RBC and 10-20 WBC with moderate bacteria; AST 46, ALT 79, CPK 426, T Bili 0.5, INR 1.0, Albumen 3.9. I was asked to evaluate for admission. Again, patient states he feels basically his usual self save for some lightheadedness. He notes that he has lost some 10 pounds in past week. 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 (Acute) Stage IV, high risk, B cell lymphoma, NOS, with extra node involvement(bone, spinal cord,pleura) Hypertrophic toenail (Acute) Anemia (Chronic) Cor pulmonale (chronic) (Chronic) Suprapubic catheter (Chronic) Incontinence of bowel (Acute) Acute kidney injury (Acute ~09/28/19) due to methotrexate therapy Weakness of both lower extremities (Acute) Hyperuricemia (Acute) Paroxysmal A-fib (Acute) Dehydration (Acute) Limited code status (Acute) Pleural effusion (Acute) Abdominal lymphadenopathy (Acute) DVT (deep venous thrombosis) (Chronic) Mediastinal adenopathy (Acute) Lung mass (Acute) COPD exacerbation (Acute) Respiratory distress (Acute) Overgrown toenails (Acute) DJD (degenerative joint disease) (Chronic) Depressive disorder (Chronic) Crohn's disease (Chronic) Self Reported Venous stasis ulcer of ankle limited to breakdown of skin (Acute) Venous stasis dermatitis of both lower extremities (Acute) Pulmonary HTN (Chronic) Mitral regurgitation (Chronic) Diastolic dysfunction (Chronic) Lymphedema of both lower extremities (Chronic) Ischemic ulcer of right ankle, limited to breakdown of skin (Acute) Smoking greater than 40 pack years (Chronic) cont on smoking cessation 08/2019 quit smoking; quit 2019 Venous insufficiency of both lower extremities (Chronic) as above Left varicocele (Acute 05/09/17) Microscopic hematuria (Acute 02/03/16) Osteoarthritis of hip (Acute 12/14/12) Right hydrocele (Acute 02/04/17) Osteoarthritis of hip (Acute 01/14/14) Total hip arthroplasty by Dr. Jose Nieves 01/14/14; Ceramic head; press fit. Mitral valve prolapse (Chronic) Microscopic hematuria (Acute) Medical History Alcohol dependence in remission Anxiety BPH (benign prostatic hyperplasia) Cellulitis of right leg Gastroesophageal reflux disease Hearing loss Housing problems Hypercholesterolemia On anticoagulant therapy for chronic DVTs Osteoarthritis Right femoral vein DVT Tobacco use disorder Ulcer of right lower extremity Varicose veins of both lower extremities with complications Venous stasis ulcer of right lower leg with edema of right lower leg Surgical History Cholecystectomy (11/01/17) Colonoscopy - MAC EGD - MAC Extraction of cataract Repair of inguinal hernia Bilateral Repair of umbilical hernia Tonsillectomy and adenoidectomy Total replacement of hip bilateral Family History Mother Breast cancer Hypertension Father CHF (congestive heart failure) Social History Smoking/Tobacco Use Status: Former Tobacco Use Quit Date: 08/23/19 Tobacco: How many years used: 50 Quit status: quit date established (06/29/2019) Smoking risk assessment performed?: Yes Alcohol Intake: former Year quit: 2007 Drug use: Never Substance use type: does not use Adopted: No Caregiver/Support person: Yes Foster care: No Household members: none Housing: apartment Number of Children: 3 Communication Needs: None Do you need help understanding health information?: Always current occupation: Disabled Sexually active: Yes Do you think of yourself as: straight/heterosexual Current gender identity: male What is your relationship status?: Panel score (0-1 are the most socially isolated patients): 0 What type of physical activity do you participate in: none Seatbelt use: always Do you feel safe at home: Yes Do you feel safe in your relationship?: Yes Meds Allergies and Home Medications Allergies Allergy/AdvReac Type Severity Reaction Status Date / Time levofloxacin [From Levaquin] AdvReac Intermediate purpura Verified 07/28/21 21:59 Sulfa (Sulfonamide AdvReac Intermediate Itching Verified 07/28/21 21:59 Antibiotics) Seasonal Allegies Allergy Intermediate Runny nose Uncoded 07/28/21 21:59 Home Medications Medication Instructions Recorded Confirmed Type acetaminophen 325 mg tablet 325 - 650 mg PO Q4H PRN PRN #0 tab 07/02/19 07/28/21 Rx (Tylenol) folic acid 1 mg tablet 1 mg PO DAILY 10/05/19 07/24/21 History simethicone 80 mg chewable tablet 40 mg PO Q6H PRN tab 10/05/19 07/24/21 History (Gas Relief (simethicone)) Pull-ups #200 ea 05/29/20 07/24/21 Rx ondansetron 8 mg disintegrating 8 mg PO Q8H #270 tab 05/29/20 07/24/21 Rx tablet polyethylene glycol 3350 17 gram 17 g PO DAILY PRN PRN #100 ea 06/03/20 07/24/21 Rx oral powder packet venlafaxine 50 mg tablet See Rx Instructions PO DAILY #90 12/25/20 07/24/21 Rx tab nebulizers #1 ea 02/05/21 07/24/21 Rx albuterol sulfate 2.5 mg (3 mL) UPD Q2H PRN PRN #90 02/12/21 07/28/21 Rx ml budesonide-formoterol HFA 160 2 puff INHALATION Q12H #10.2 g 03/26/21 07/28/21 Rx mcg-4.5 mcg/actuation aerosol inhaler (Symbicort) spironolactone 25 mg tablet 25 mg PO DAILY #30 tab 04/06/21 07/28/21 Rx underpads (Bed Underpads) #40 ea 05/01/21 07/24/21 Rx cholecalciferol (vitamin D3) 10 20 mcg PO DAILY #180 tab 05/07/21 07/28/21 Rx mcg (400 unit) tablet finasteride 5 mg tablet 5 mg PO DAILY #90 tab-cap 05/07/21 07/28/21 Rx lactose-reduced food with fiber 237 ml PO BID #5688 ml 05/07/21 07/24/21 Rx 0.06 gram-1.2 kcal/mL oral liquid (Jevity 1.2 Lucas) multivitamin,tx-minerals (Super 1 tab PO DAILY #90 tab 05/07/21 07/28/21 Rx Thera Ching M) potassium chloride 10 mEq 10 meq PO DAILY #90 tab 05/07/21 07/28/21 Rx tablet,extended release sennosides 8.6 mg-docusate sodium 1 tab-cap PO BID #180 tab 05/07/21 07/28/21 Rx 50 mg tablet (Senna-S) calcium polycarbophil 625 mg 1,250 mg PO DAILY #90 tab 05/11/21 07/28/21 Rx tablet (FiberCon) ferrous sulfate 325 mg (65 mg See Rx Instructions .ROUTE 06/02/21 07/28/21 Rx iron) tablet .COMPLEX #28 tab torsemide 20 mg tablet 60 mg PO BID #540 tab 07/07/21 07/28/21 Rx ascorbic acid (vitamin C) 500 mg 500 mg PO TID #270 tab 07/09/21 07/28/21 Rx tablet gabapentin 100 mg capsule See Rx Instructions .ROUTE 07/24/21 07/28/21 Rx .COMPLEX #168 cap metolazone 10 mg tablet 10 mg PO .COMPLEX #4 tab 07/24/21 07/28/21 Rx apixaban 5 mg tablet (Eliquis) 5 mg PO BID 07/28/21 07/28/21 History Exam Narrative Exam Narrative: 98/56, 56, 37.0, 19, 93% RA. HEENT atraumatic; neck supple; lungs clear; heart occasional ectopic; abdomen protruberant with increased venous pattern and probable shifting dullness; SPT in place draining somewhat cloudy urine; extremities in compression stockings with trace pedal edema; neuro Ox3, lucid, moves ball 4s Results Labs Result diagrams: 07/28/21 21:45 07/28/21 21:45 Labs: Laboratory Results - last 24 hr 07/28/21 07/28/21 07/28/21 21:45 21:45 21:45 WBC 9.69 RBC 4.53 Hgb 14.2 Hct 42.0 MCV 92.7 MCH 31.3 MCHC 33.8 RDW 13.4 Plt Count 187 MPV 11.0 Immature Gran % 0.4 Neutrophils % 62.2 Lymphocytes % 24.9 Monocytes % 11.2 Eosinophils % 1.1 Basophils % 0.2 Nucleated RBC % 0 Absolute Neutrophils 6.02 Absolute Lymphocytes 2.41 Absolute Monocytes 1.09 H Absolute Eosinophils 0.11 Absolute Basophils 0.02 PT INR APTT Sodium 126 L Potassium 2.6 L* Chloride 81 L Carbon Dioxide 38.1 H Anion Gap 6.9 BUN 92 H* Creatinine 1.9 H Estimated GFR/1.73 m2 35.87 Glucose 112 H Calcium 10.3 H Magnesium 2.4 Total Bilirubin 0.5 Conjugated Bilirubin 0.1 AST 46 H ALT 79 H Alkaline Phosphatase 148 H Creatine Kinase 426 H Total Protein 9.0 H Albumin 3.9 TSH 1.87 Urine Color Urine Clarity Urine pH Ur Specific [place] Urine Protein Urine Ketones Urine Blood Urine Nitrite Urine Bilirubin Urine Urobilinogen Ur Leukocyte Esterase Urine RBC Urine WBC Ur Epithelial Cells Urine Crystals Urine Bacteria Urine Casts Urine Mucus Ur Culture Indicated? Ur Random Creatinine U Random Total Protein U [place] Prot/Creat Ratio Urine Glucose COVID-19 Source Nasal/Nares SARS-CoV-2 (PCR) Negative 07/28/21 07/28/21 07/28/21 21:45 22:20 22:20 WBC RBC Hgb Hct MCV MCH MCHC RDW Plt Count MPV Immature Gran % Neutrophils % Lymphocytes % Monocytes % Eosinophils % Basophils % Nucleated RBC % Absolute Neutrophils Absolute Lymphocytes Absolute Monocytes Absolute Eosinophils Absolute Basophils PT 10.3 INR 1.0 APTT 29.2 H Sodium Potassium Chloride Carbon Dioxide Anion Gap BUN Creatinine Estimated GFR/1.73 m2 Glucose Calcium Magnesium Total Bilirubin Conjugated Bilirubin AST ALT Alkaline Phosphatase Creatine Kinase Total Protein Albumin TSH Urine Color Yellow Urine Clarity Cloudy Urine pH 7.0 Ur Specific [place] 1.015 Urine Protein Negative Urine Ketones Negative Urine Blood Small H Urine Nitrite Negative Urine Bilirubin Negative Urine Urobilinogen 0.2 Ur Leukocyte Esterase Moderate H Urine RBC 10-20 H Urine WBC 10-20 H Ur Epithelial Cells Rare Urine Crystals Few Amorphous Urine Bacteria Moderate Urine Casts Negative Urine Mucus Negative Ur Culture Indicated? Yes Ur Random Creatinine 38.50 U Random Total Protein 7.7 U [place] Prot/Creat Ratio 0.20 Urine Glucose Negative COVID-19 Source SARS-CoV-2 (PCR) Last Vital Signs Temp 37.0 C 07/28/21 21:49 Pulse 56 L 07/28/21 23:16 Resp 19 07/28/21 23:20 BP 98/56 L 07/28/21 23:16 Pulse Ox 93 07/28/21 23:20
[2021-07-29] VITALS (29 sets, daily range): BP systolic 86–118; BP diastolic 50–66; PULSE 57–80; RESP 11–29; TEMP 36–37.1; O2SAT 91–98
--- NOTE | 2021-07-29 | DI.US_ITS ---
Exam(s) US ABDOMEN EXAM: US ABDOMEN CLINICAL HISTORY: ascites by exam TECHNIQUE: Ultrasound abdomen performed using standard protocol. COMPARISON: CT CT ABDOMEN WO/W from 04/21/2021 FINDINGS: Limited exam due to patient body habitus and inability to breath hold. LIVER: Moderate hepatic steatosis. Enlarged at 19.2 cm in length. No focal liver lesions are seen.. GALLBLADDER: Status post cholecystectomy. EDUARDO'S SIGN: Negative. BILIARY SYSTEM: No intrahepatic or extrahepatic biliary ductal dilation. KIDNEYS: Kidneys are symmetric in size. No evidence of renal calculi. No evidence of hydronephrosis. No renal mass or cyst identified. PANCREAS: Normal where visualized. Head not well visualized. SPLEEN: Not well seen. ABDOMINAL AORTA AND IVC: Visualized portions normal caliber. ASCITES: None seen. IMPRESSION: Fatty infiltration of the liver. No evidence of ascites. DATA REPOSITORY:
--- NOTE | 2021-07-29 00:18 | DI.VRAD_ITS ---
PROCEDURE INFORMATION: Exam: XR Chest Exam date and time: 07/28/2021 10:23 PM Age: 66 years old Clinical indication: Other: ? Edema TECHNIQUE: Imaging protocol: XR of the chest. Views: 1 view. COMPARISON: CT CHEST PE CTA 02/11/2021 3:30 PM FINDINGS: Lungs: Stable diffuse mild emphysematous changes. No consolidation. Pleural spaces: Unremarkable. No pleural effusion. No pneumothorax. Heart/Mediastinum: Unremarkable. No cardiomegaly. Bones/joints: Unremarkable. IMPRESSION: No evidence of acute cardiopulmonary process. Dictated and Authenticated by: Jose Saba MD. Ordering:ELKIN Eng MD
[2021-07-29] MEDS: cefTRIAXone 1,000 MG in Normal Saline 50 ML 100 MG IVPB (02:09)
[2021-07-29] MEDS: POTASSIUM CHLORIDE/0.9% NACL 1,000 ML 100 MEQ IV (02:09)
[2021-07-29 06:47] LABS: Anion Gap 4.8 mmol/L (3-11); CO2 37.2 mmol/L (21.0-32.0); CREATININE 1.7 mg/dL (0.70-1.30); Calcium 9.1 mg/dL (8.5-10.1); Chloride 86 mmol/L (98-107); Estimated GFR 40.78 (mL/min/1.73m2); Glucose 114 mg/dL (74-106); Sodium 128 mmol/L (136-145)
[2021-07-29 06:51] LABS: BUN 91 mg/dL (7-18); Potassium 2.6 mmol/L (3.5-5.1)
[2021-07-29 06:59] LABS: ALT 66 U/L (16-63); AST 43 U/L (15-37); Creatine Kinase 495 U/L (39-308)
[2021-07-29] MEDS: Budesonide/Formoterol 160/4.5 6 GM 60 PUFF INH IH ×2 (07:29→20:48)
[2021-07-29] MEDS: POTASSIUM CHLORIDE 10 MEQ/100 ML BAG 100 MEQ IVPB ×2 (07:37→09:33)
[2021-07-29] MEDS: Normal Saline Flush 10 ML SYR IVP (07:38)
[2021-07-29] MEDS: Gabapentin 100 MG CAP 200 MG PO (09:32)
[2021-07-29] MEDS: Apixaban 5 MG TAB PO ×2 (09:33→20:44)
[2021-07-29] MEDS: Potassium Chloride 20 MEQ TABCR PO ×2 (09:33→20:44)
[2021-07-29] MEDS: Sennosides/Docusate Sodium TAB 1 TAB PO ×2 (09:33→20:44)
--- NOTE | 2021-07-29 09:55 | INITIAL_ITS ---
- If Service Date Differs Date of service: 07/29/21 Time of Service: 09:56 Care Management Initial Assess REASON FOR HOSPITALIZATION:: azotemia, electyrolyte imbalance PAST MEDICAL HISTORY/PAST SURGICAL HISTORY:: All Active Problems (Updated 07/28/21 @ 23:58 by Juancho Bacon MD). Azotemia (Acute). Hypokalemia (Acute). Elevated BUN (Acute). Hyponatremia (Acute). Nephrotic syndrome (Acute). Pancreatic lesion (Acute). Hypoattenuation seen on CT 05/09. Fluid retention (Acute). Thrombosis of right saphenous vein (Acute). Left femoral vein DVT (Acute). Anxiety and depression (Chronic). 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 Hypertrophic toenail (Acute). Anemia (Chronic). Cor pulmonale (chronic) (Chronic). Suprapubic catheter (Chronic). Incontinence of bowel (Acute). Acute kidney injury (Acute ~09/28/19). due to methotrexate therapy. Weakness of both lower extremities (Acute). Hyperuricemia (Acute). Paroxysmal A-fib (Acute). Dehydration (Acute). Limited code status (Acute). Pleural effusion (Acute). Abdominal lymphadenopathy (Acute). DVT (deep venous thrombosis) (Chronic). Mediastinal adenopathy (Acute). Lung mass (Acute). COPD exacerbation (Acute). Respiratory distress (Acute). Overgrown toenails (Acute). DJD (degenerative joint disease) (Chronic). Depressive disorder (Chronic). Crohn's disease (Chronic). Self Reported. Venous stasis ulcer of ankle limited to breakdown of skin (Acute). Venous stasis dermatitis of both lower extremities (Acute). Pulmonary HTN (Chronic). Mitral regurgitation (Chronic). Diastolic dysfunction (Chronic). Lymphedema of both lower extremities (Chronic). Ischemic ulcer of right ankle, limited to breakdown of skin (Acute). Smoking greater than 40 pack years (Chronic). cont on smoking cessation. 08/2019 quit smoking; quit 2019. Venous insufficiency of both lower extremities (Chronic). as above. Left varicocele (Acute 05/09/17). Microscopic hematuria (Acute 02/03/16). Osteoarthritis of hip (Acute 12/14/12). Right hydrocele (Acute 02/04/17). Osteoarthritis of hip (Acute 01/14/14). Total hip arthroplasty by Dr. Jose Nieves 01/14/14; Ceramic head; press fit. Mitral valve prolapse (Chronic). Microscopic hematuria (Acute). Medical History . Alcohol dependence in remission. Anxiety. BPH (benign prostatic hyperplasia). Cellulitis of right leg. Gastroesophageal reflux disease. Hearing loss. Housing problems. Hypercholesterolemia. On anticoagulant therapy. for chronic DVTs. Osteoarthritis. Right femoral vein DVT. Tobacco use disorder. Ulcer of right lower extremity. Varicose veins of both lower extremities with complications. Venous stasis ulcer of right lower leg with edema of right lower leg. Surgical History . Cholecystectomy (11/01/17). Colonoscopy - MAC. EGD - MAC. Extraction of cataract. Repair of inguinal hernia. Bilateral. Repair of umbilical hernia. Tonsillectomy and adenoidectomy. Total replacement of hip. bilateral PREVIOUS FUNCTIONAL STATUS/SOCIAL/FAMILY SUPPORTS:: Isra lives alone in [place], [place]. He has 2 children who live in [place] but are not closeby. He communicates with them several times a week but has been unable to visit since he no longer drives. Isra attends Adult day at [facility] 3 days a week. He has a clinical research coordinator at the [facility] and receives his medical care there and is familer with RN CCC at the clinic. He does have [facility] and receives twice weekly visits from nursing and twice daily visits from LNAs. His community pharmacist is Breann Major and his sister Mariluz is his DPOA. Isra uses [employer] for all transportation. CURRENT FUNCTIONAL STATUS:: Isra was sitting up in a chair when met with him. He was agreeable to converstaion and was pleasant in interaction. isra shared that he isd well supported in the community with case management and caregivers. he has an electric wheelchair which he uses as well as a walker. He is really only able to move short distances with the walker. Isra lives at the [facility] but relies on the clients and staff at [facility] which he attends 3 times a week, for socialization. ADVANCE DIRECTIVES:: on file. Sister Mariluz PIERCE Has patient been provided with info about the portal/API?: Yes Did the patient sign up for the portal?: Yes (previously) CODE STATUS:: Full Code INSURANCE COVERAGE / FINANCIAL ISSUES:: Medicare. Medicaid CURRENT HOME/COMMUNITY SERVICES/EQUIPMENT:: Isra has [facility] with BUILDINGS AND GROUNDS COORDINATOR support twice daily, RN daily and PT and OT twice weekly. He also receives MOW. Isra has a walker, 2 wheelchairs, hospital bed and commode.The only additional equipment he stated that he feels he needs are grab bars in his bathroom which have been ordered. PRIMARY CARE PHYSICIAN:: Renan Garcia POTENTIAL DISCHARGE NEEDS:: follow up with community providers and plan of care PATIENT/FAMILY EDUCATION NEEDS:: Review of discharge instructions, limitations, activity, medications, follow up plan, Ask Me Three TRANSPORTATION:: via private vehicle vs wheelchair van PLAN:: Isra will likely be discharged home with a resumption of services. He will follow up with his community providers and discharge plan of care. Isra will transport via private vehicle vs wheelchair van. CM will continue to support Isra and assess for discharge planning concerns.
[2021-07-29] MEDS: Famotidine 20 MG TAB PO (10:23)
--- NOTE | 2021-07-29 14:18 | PGE_ITS ---
Date of Service Date of service: 07/29/21 Time of Service: 14:18 Assessment and Plan Assessment and plan (1) Azotemia: Status: Acute Assessment and plan: Azotemia, with hypokjalemia and hyponatremia -- all no doubt due to recent Metalazone. Stopped metolazone at time of admission. Restart spironolactone and torsemide. Monitor (2) Hypokalemia: Status: Acute Assessment and plan: ORal and IV replacement. Monitor. (3) Hyponatremia: Status: Acute Assessment and plan: Improved from 126 to 128. Monitor. (4) Nephrotic syndrome: Status: Acute Assessment and plan: H/O nephrotic syndrome. No protein in urine currently. (5) Anxiety and depression: Status: Chronic Assessment and plan: No current medications. 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 (7) Cord compression syndrome: Status: Suspected Assessment and plan: Uses a wheelchair most of the time. (8) Urinary retention: Status: Acute (9) Elevated CPK: Status: Acute Assessment and plan: Has suprapubic catheter. (10) DVT prophylaxis: Status: Acute Assessment and plan: He is on Apixiban so requires no additional prophylaxis. (11) COPD (chronic obstructive pulmonary disease): Status: None Assessment and plan: No acute exacerbation. Cont Stiolto and prn albuterol Qualifiers: COPD type: emphysema Emphysema type: centrilobular Qualified Code(s): J43.2 - Centrilobular emphysema Subjective Subjective Patient reports: no new complaints, tolerating a regular diet and afebrile; denies nausea, vomiting or shortness of breath Exam Narrative Exam Narrative: Sitting in chair eating lunch. Const General: cooperative and no acute distress Nutritional Appearance: obese Orientation: alert and oriented x3 Eyes General: appearance normal, both eyes and all related structures Sclera: sclerae normal Resp Effort & Inspection: normal respiratory effort Auscultation: clear to auscultation bilaterally Cardio Rate: regular rate Rhythm: regular rhythm Heart Sounds: S1 normal and S2 normal GI Inspection: normal to inspection Palpation: soft and nontender Extrem General: no calf tenderness and edema Psych Speech and Movement: speech clear Affect: normal affect Objective Last Vital Signs Temp 36 C L 07/29/21 11:30 Pulse 62 07/29/21 11:30 Resp 18 07/29/21 11:30 BP 96/56 L 07/29/21 11:30 Pulse Ox 93 07/29/21 11:30 Laboratory Results - last 24 hr 07/28/21 07/28/21 07/28/21 21:45 21:45 21:45 WBC 9.69 RBC 4.53 Hgb 14.2 Hct 42.0 MCV 92.7 MCH 31.3 MCHC 33.8 RDW 13.4 Plt Count 187 MPV 11.0 Immature Gran % 0.4 Neutrophils % 62.2 Lymphocytes % 24.9 Monocytes % 11.2 Eosinophils % 1.1 Basophils % 0.2 Nucleated RBC % 0 Absolute Neutrophils 6.02 Absolute Lymphocytes 2.41 Absolute Monocytes 1.09 H Absolute Eosinophils 0.11 Absolute Basophils 0.02 PT INR APTT Sodium 126 L Potassium 2.6 L* Chloride 81 L Carbon Dioxide 38.1 H Anion Gap 6.9 BUN 92 H* Creatinine 1.9 H Estimated GFR/1.73 m2 35.87 Glucose 112 H Calcium 10.3 H Magnesium 2.4 Total Bilirubin 0.5 Conjugated Bilirubin 0.1 AST 46 H ALT 79 H Alkaline Phosphatase 148 H Creatine Kinase 426 H Total Protein 9.0 H Albumin 3.9 TSH 1.87 Urine Color Urine Clarity Urine pH Ur Specific [place] Urine Protein Urine Ketones Urine Blood Urine Nitrite Urine Bilirubin Urine Urobilinogen Ur Leukocyte Esterase Urine RBC Urine WBC Ur Epithelial Cells Urine Crystals Urine Bacteria Urine Casts Urine Mucus Ur Culture Indicated? Ur Random Creatinine U Random Total Protein U [place] Prot/Creat Ratio Urine Glucose COVID-19 Source Nasal/Nares SARS-CoV-2 (PCR) Negative 07/28/21 07/28/21 07/28/21 21:45 22:20 22:20 WBC RBC Hgb Hct MCV MCH MCHC RDW Plt Count MPV Immature Gran % Neutrophils % Lymphocytes % Monocytes % Eosinophils % Basophils % Nucleated RBC % Absolute Neutrophils Absolute Lymphocytes Absolute Monocytes Absolute Eosinophils Absolute Basophils PT 10.3 INR 1.0 APTT 29.2 H Sodium Potassium Chloride Carbon Dioxide Anion Gap BUN Creatinine Estimated GFR/1.73 m2 Glucose Calcium Magnesium Total Bilirubin Conjugated Bilirubin AST ALT Alkaline Phosphatase Creatine Kinase Total Protein Albumin TSH Urine Color Yellow Urine Clarity Cloudy Urine pH 7.0 Ur Specific [place] 1.015 Urine Protein Negative Urine Ketones Negative Urine Blood Small H Urine Nitrite Negative Urine Bilirubin Negative Urine Urobilinogen 0.2 Ur Leukocyte Esterase Moderate H Urine RBC 10-20 H Urine WBC 10-20 H Ur Epithelial Cells Rare Urine Crystals Few Amorphous Urine Bacteria Moderate Urine Casts Negative Urine Mucus Negative Ur Culture Indicated? Yes Ur Random Creatinine 38.50 U Random Total Protein 7.7 U [place] Prot/Creat Ratio 0.20 Urine Glucose Negative COVID-19 Source SARS-CoV-2 (PCR) 07/29/21 07/29/21 05:59 05:59 WBC RBC Hgb Hct MCV MCH MCHC RDW Plt Count MPV Immature Gran % Neutrophils % Lymphocytes % Monocytes % Eosinophils % Basophils % Nucleated RBC % Absolute Neutrophils Absolute Lymphocytes Absolute Monocytes Absolute Eosinophils Absolute Basophils PT INR APTT Sodium 128 L Potassium 2.6 L* Chloride 86 L Carbon Dioxide 37.2 H Anion Gap 4.8 BUN 91 H* Creatinine 1.7 H Estimated GFR/1.73 m2 40.78 Glucose 114 H Calcium 9.1 Magnesium Total Bilirubin Conjugated Bilirubin AST 43 H ALT 66 H Alkaline Phosphatase Creatine Kinase 495 H Total Protein Albumin TSH Urine Color Urine Clarity Urine pH Ur Specific [place] Urine Protein Urine Ketones Urine Blood Urine Nitrite Urine Bilirubin Urine Urobilinogen Ur Leukocyte Esterase Urine RBC Urine WBC Ur Epithelial Cells Urine Crystals Urine Bacteria Urine Casts Urine Mucus Ur Culture Indicated? Ur Random Creatinine U Random Total Protein U [place] Prot/Creat Ratio Urine Glucose COVID-19 Source SARS-CoV-2 (PCR)
[2021-07-29] MEDS: Gabapentin 100 MG CAP PO ×2 (14:56→20:44)
[2021-07-29] MEDS: Torsemide 20 MG TAB 60 MG PO (20:44)
[2021-07-29] MEDS: Finasteride 5 MG TAB PO (21:32)
[2021-07-29] MEDS: Ondansetron O.D.T. 4 MG TABEF 8 MG PO (21:32)
[2021-07-30] VITALS (7 sets, daily range): BP systolic 101–118; BP diastolic 63–71; PULSE 56–71; RESP 18; TEMP 36.3–36.6; O2SAT 92–99
[2021-07-30] MEDS: cefTRIAXone 1,000 MG in Normal Saline 50 ML 100 MG IVPB (02:30)
[2021-07-30 07:18] LABS: Anion Gap 9.9 mmol/L (3-11); BUN 67 mg/dL (7-18); CO2 34.1 mmol/L (21.0-32.0); CREATININE 1.7 mg/dL (0.70-1.30); Calcium 9.5 mg/dL (8.5-10.1); Chloride 91 mmol/L (98-107); Creatine Kinase 434 U/L (39-308); Estimated GFR 40.78 (mL/min/1.73m2); Glucose 160 mg/dL (74-106); Sodium 135 mmol/L (136-145)
[2021-07-30 07:20] LABS: Potassium 2.9 mmol/L (3.5-5.1)
[2021-07-30] MEDS: Gabapentin 100 MG CAP PO ×3 (07:25→19:54)
[2021-07-30] MEDS: Famotidine 20 MG TAB PO (07:25)
[2021-07-30] MEDS: Sennosides/Docusate Sodium TAB 1 TAB PO ×2 (07:25→19:54)
[2021-07-30] MEDS: Apixaban 5 MG TAB PO ×2 (07:25→19:54)
[2021-07-30] MEDS: Potassium Chloride 20 MEQ TABCR PO ×2 (07:25→19:54)
[2021-07-30] MEDS: Torsemide 20 MG TAB 60 MG PO (07:25)
[2021-07-30] MEDS: Budesonide/Formoterol 160/4.5 6 GM 60 PUFF INH IH ×2 (07:30→19:54)
[2021-07-30] MEDS: Spironolactone 25 MG TAB PO (08:15)
[2021-07-30] MEDS: POTASSIUM CHLORIDE 10 MEQ/100 ML BAG 100 MEQ IVPB ×3 (08:15→11:01)
[2021-07-30] MEDS: Normal Saline Flush 10 ML SYR IVP (08:20)
[2021-07-30] MEDS: Polyethylene Glycol 3350 17 GM PACKET PO (08:20)
[2021-07-30 13:53] LABS: Potassium 3.5 mmol/L (3.5-5.1)
--- NOTE | 2021-07-30 14:49 | W.PM.PROGNOT ---
Date of Service Date of service: 07/30/21 Time of Service: 14:49 Assessment and Plan Assessment and plan (1) Azotemia: Status: Acute Assessment and plan: Azotemia, with hypokjalemia and hyponatremia -- all no doubt due to recent Metalazone. BUN improved from 92 to 67. Stopped metolazone at time of admission. Restart spironolactone and torsemide. Monitor (2) Hypokalemia: Status: Acute Assessment and plan: ORal and IV replacement. Now low normal K. Monitor. (3) Hyponatremia: Status: Acute Assessment and plan: Improved from 126 > 128 > 135 Monitor. (4) Nephrotic syndrome: Status: Acute Assessment and plan: H/O nephrotic syndrome. No protein in urine currently. (5) Anxiety and depression: Status: Chronic Assessment and plan: No current medications. 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 (7) Cord compression syndrome: Status: Suspected Assessment and plan: Uses a wheelchair most of the time. (8) Urinary retention: Status: Acute Assessment and plan: Has chronic suprapubic catheter (9) Elevated CPK: Status: Acute Assessment and plan: May be chronic muscle breakdown from sedentary state. CPK stable in the 400's. (10) DVT prophylaxis: Status: Acute Assessment and plan: He is on Apixiban so requires no additional prophylaxis. (11) COPD (chronic obstructive pulmonary disease): Status: None Assessment and plan: No acute exacerbation. Cont Stiolto and prn albuterol Qualifiers: COPD type: emphysema Emphysema type: centrilobular Qualified Code(s): J43.2 - Centrilobular emphysema (12) Discharge planning issues: Status: Acute Assessment and plan: Likely d/c tomorrow. Home w/o services. Subjective Subjective Patient reports: no new complaints, feels better and tolerating a regular diet; denies nausea or vomiting Exam Narrative Exam Narrative: Sitting in chair. Const General: cooperative and no acute distress Nutritional Appearance: obese Orientation: alert and oriented x3 Eyes General: appearance normal, both eyes and all related structures Sclera: sclerae normal Resp Effort & Inspection: normal respiratory effort Auscultation: clear to auscultation bilaterally Cardio Rate: regular rate Rhythm: regular rhythm Heart Sounds: S1 normal and S2 normal GI Inspection: normal to inspection Palpation: soft and nontender Extrem General: no calf tenderness and edema Psych Speech and Movement: speech clear Affect: normal affect Objective Last Vital Signs Temp 36.6 C 07/30/21 13:33 Pulse 71 07/30/21 13:33 Resp 18 07/30/21 13:33 BP 118/71 07/30/21 13:33 Pulse Ox 93 07/30/21 13:33 Laboratory Results - last 24 hr 07/30/21 07/30/21 06:41 13:30 Sodium 135 L Potassium 2.9 L 3.5 Chloride 91 L Carbon Dioxide 34.1 H Anion Gap 9.9 BUN 67 H D Creatinine 1.7 H Estimated GFR/1.73 m2 40.78 Glucose 160 H Calcium 9.5 Creatine Kinase 434 H
--- NOTE | 2021-07-30 15:28 | CMPROGNOTE_ITS ---
- If Service Date Differs Date of service: 07/30/21 Time of Service: 15:28 Care Management Progress Note S/O:Isra was sitting up in a chair when CM met with him. He was in good spirits and informed CM that he might be able to discharge home later today. He indicated that this would make him happy. He also shared that he had a friend coming at noon to play cribbage with him. He admitted that he was a pretty good player. Isra's bloodwork has improved however the provider decided to keep him in the hospital one more night and recheck his electrolytes in the morning before discharge. [facility] [place] was been notified by CM of the planned discharge for 07/31/21. A: Isra is a 66 year old man admitted on 07/29/21 with an electrolyte imbalance. P: Isra will likely be discharged home with a resumption of services. He will follow up with his community providers and discharge plan of care. Isra will transport via private vehicle vs wheelchair van. CM will continue to support Isra and assess for discharge planning concerns.
--- NOTE | 2021-07-30 17:14 | CHAPLAIN ---
Isra and I know each other from his previous admissions and when his , Brigitte, here several years ago. He said he is feeling better after his infusions. He is waiting for a friend, [facility] from [facility] to visit and play cribbage with him. I will continue to visit.
[2021-07-30] MEDS: Finasteride 5 MG TAB PO (22:14)
[2021-07-31 00:55] VITALS: PULSE 63
[2021-07-31] MEDS: cefTRIAXone 1 GM/50 ML BAG IVPB (01:33)
[2021-07-31] MEDS: Normal Saline Flush 10 ML SYR IVP (01:34)
[2021-07-31 04:12] VITALS: BP 104/65; PULSE 59; RESP 18; TEMP 36.3; O2SAT 95
[2021-07-31 07:05] VITALS: PULSE 64
[2021-07-31] MEDS: Budesonide/Formoterol 160/4.5 6 GM 60 PUFF INH IH (07:17)
[2021-07-31 07:20] VITALS: BP 115/66; PULSE 58; RESP 17; TEMP 36.1; O2SAT 94
--- NOTE | 2021-07-31 07:24 | DSE_ITS ---
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: Status: Acute (7) Cord compression syndrome: Status: Suspected (8) Urinary retention: Status: Acute (9) Elevated CPK: Status: Acute (10) DVT prophylaxis: Status: Acute (11) COPD (chronic obstructive pulmonary disease): Status: None (12) Discharge planning issues: Status: Acute Discharge Plan Disposition Patient Disposition: [facility] W/HOME HEALTH SERVICE Condition: Good Discharge Details Reason For Visit: Azotemia, Hypokalemia, Hyponatremia Admit Date/Time: 07/30/21 18:03 Admit Provider: Juancho Bacon Attending Provider: Juancho Bacon Primary Care Provider: Renan Garcia [facility] Course Hospital Course: 66 male with multiple problems, including h/o nephrotic syndrome, chronic pedal edema, urinary retention with suprapubic catheter in place, DVT, an xiety/depression, B-cell lymphoma, cor pulmonale, COPD paroxysmal A-fib, tobacco abuse symdrom. He reported he was started on Metalazone about 10 days ago. Sent for routine labs on day of presentation and K 2.5 and BUN 92 noted and was asked to come to ER. In ER patient stated he actually feels fine except he has noted a degree of lightheadedness. Labs of note for K 2.6, BUN 92, creat 1.9; U/A with 10-20 RBC and 10-20 WBC with moderate bacteria; AST 46, ALT 79, CPK 426, T Bili 0.5, INR 1.0, Albumen 3.9. I was asked to evaluate for admission. Again, patient states he feels basically his usual self save for some lightheadedness. He notes that he has lost some 10 pounds in past week. Metolazone was stopped. Potassium replacement initiated. Rocephin initiated at 1gr IV daily. He experienced no further lightheadedness. At no time did he have fever/chills, suprapubic discomfort. His potassium returned to a low normal level which, historically before starting metolazone, was his norm. His pedal edeam improved significantly with frequently elevation of his legs; encouraged to continue this practice. He received 3 doses of Rocephin and no further antibiotic planned. He was given an order for a BMP in 1 week. PCP f/u in 1-2 weeks. Home Meds and New Rx's Prescriptions: New polyethylene glycol 3350 17 gram Powder In Packet 17 g PO BID PRN PRNQty: 0 0RF Continued torsemide 20 mg tablet 60 mg PO BID Qty: 540 3RF ascorbic acid (vitamin C) 500 mg tablet 500 mg PO TID Qty: 270 3RF Rx Instructions: we are increasing his dose from 500 mg daily to 500 mg TID albuterol sulfate 2.5 mg /3 mL (0.083 %) solution for nebulization 2.5 mg UPD Q2H PRN PRN (Reason: shortness of breath or wheezing) Qty: 90 0RF budesonide-formoterol [Symbicort] 160-4.5 mcg/actuation HFA aerosol inhaler 2 puff inhalation Q12H Qty: 10.2 3RF spironolactone 25 mg tablet 25 mg PO DAILY Qty: 30 6RF cholecalciferol (vitamin D3) 10 mcg (400 unit) tablet 20 mcg PO DAILY Qty: 180 3RF Rx Instructions: 800 U daily[place] [facility] [place] 10[place]04[place]19 c[facility] Jevity 1.2 Lucas 0.06 gram-1.2 kcal/mL liquid 237 ml PO BID Qty: 5688 12RF Super Thera Ching M Tablet 1 tab PO DAILY Qty: 90 3RF potassium chloride 10 mEq tablet extended release 10 meq PO DAILY Qty: 90 3RF sennosides-docusate sodium [Senna-S] 8.6-50 mg tablet 1 tab-cap PO BID Qty: 180 3RF calcium polycarbophil [FiberCon] 625 mg tablet 1,250 mg PO DAILY Qty: 90 3RF ferrous sulfate 325 mg (65 mg iron) tablet See Rx Instructions .ROUTE .COMPLEX Qty: 28 3RF Dose Instruction: TAKE 1 TABLET BY MOUTH DAILY Rx Instructions: TAKE 1 TABLET BY MOUTH DAILY gabapentin 100 mg capsule See Rx Instructions .ROUTE .COMPLEX Qty: 168 6RF Dose Instruction: TAKE 2 CAPSULES BY MOUTH THREE TIMES A DAY Rx Instructions: TAKE 2 CAPSULES BY MOUTH THREE TIMES A DAY Eliquis 5 mg tablet 5 mg PO BID 0RF ondansetron 8 mg Tablet,Disintegrating 8 mg PO Q8H PRN0RF acetaminophen [Tylenol] 325 mg Tablet 325 - 650 mg PO Q4H PRN PRNQty: 0 0RF Discontinued metolazone 10 mg tablet 10 mg PO .COMPLEX Qty: 4 0RF Rx Instructions: 10 mg PO t1 tab on Sun and Thurs for 2 weeks; No Action (DME) Pull-ups Large See Rx Instructions .Route .MEDSUPPLY Qty: 200 6RF Rx Instructions: As directed BID (DME) underpads [Bed Underpads] Pad See Rx Instructions .ROUTE .MEDSUPPLY Qty: 40 12RF Rx Instructions: As directed, for diarrhea or urinary leakage (DME) nebulizers Misc See Rx Instructions .ROUTE .MEDSUPPLY Qty: 1 0RF Rx Instructions: As directed finasteride 5 mg tablet 5 mg PO DAILY Qty: 90 4RF Discharge Instructions Additional Instructions: Resume Home Health. Activity:: Activity as Tolerated Equipment/Supplies:: No Equipment Needed Diet:: resume usual diet Discharge Orders Discharge Orders: Discharge Order (Routine); Ordered 07/31/21 Ordered By: Juan J Ward Other Ambulatory Orders: Basic Metabolic Panel (Routine) Timeframe: 1 Week Location: None Selected Ordered By: Juan J Ward DS: Summary Time Spent with Patient providing and/or coordinating discharge services: Greater than 30 minutes Status at Discharge Functional status at discharge: uses cane/walker Overall status at discharge: patient is back to baseline Mental Status: mental status grossly normal Speech and Movement: speech clear Mood: congruent mood Affect: normal affect Exam Narrative Exam Narrative: Sitting in chair. Const General: cooperative and no acute distress Nutritional Appearance: obese Orientation: alert and oriented x3 Eyes General: appearance normal, both eyes and all related structures Sclera: sclerae normal Resp Effort & Inspection: normal respiratory effort Auscultation: clear to auscultation bilaterally Cardio Rate: regular rate Rhythm: regular rhythm Heart Sounds: S1 normal and S2 normal GI Inspection: normal to inspection Palpation: soft and nontender Extrem General: no calf tenderness and edema (nonpitting. Compression stockings in place. ) Psych Mental Status: mental status grossly normal Speech and Movement: speech clear Mood: congruent mood Affect: normal affect DS: Data Vitals/I&O Vitals and I&O: Vital Signs Temperature 36.1 C L 07/31/21 07:20 Temperature Source Tympanic 07/31/21 07:20 Pulse 58 L 07/31/21 07:20 Pulse Rhythm Regular 07/30/21 20:15 Pulse 62 07/29/21 01:40 Respiratory Rate 17 07/31/21 07:20 Respiratory Effort Non-Labored 07/30/21 20:15 Respiratory Depth Normal 07/30/21 20:15 Respiratory Pattern Normal 07/30/21 20:15 Blood Pressure 115/66 07/31/21 07:20 Blood Pressure Mean 71 07/29/21 00:56 Blood Pressure Position Supine 07/28/21 21:49 Pulse Oximetry 94 07/31/21 07:20 Oxygen Delivery Method Room Air 07/31/21 07:20 Oxygen Flow Rate 0 07/31/21 07:20 Pain Level 0 07/31/21 07:20 Comment 07/29/21 03:26 Intake & Output 07/30/21 07/30/21 07/31/21 11:59 23:59 11:59 Intake Total 680 / 1400 720 / 1400 50 / 50 Output Total 1700 / 4050 2350 / 4050 700 / 700 Balance -1020 / -2650 -1630 / -2650 -650 / -650 Intake: IV 200 / 200 50 / 50 Oral 480 / 1200 720 / 1200 Output: Urine 1700 / 4050 2350 / 4050 700 / 700 Other: Urine Color Yellow Yellow Yellow Urine Appearance Clear Clear Cloudy Comment strong odor. Stool Occult Blood Negative Stool Size Small Stool Characteristics Hard Black Data Completed and Pending Labs on day of discharge: Labs from last 24 hours 07/30/21 13:30 Potassium 3.5 Preliminary micro results at discharge 07/28/21 22:20 Urine Culture - Preliminary Urine - Reflex from Ua Gram Negative Enrike Gram Positive Magda,Mixed PFSH All Active Problems Discharge planning issues (Acute) DVT prophylaxis (Acute) Elevated CPK (Acute) Urinary retention (Acute) Azotemia (Acute) Hypokalemia (Acute) Elevated BUN (Acute) Hyponatremia (Acute) Nephrotic syndrome (Acute) Pancreatic lesion (Acute) Hypoattenuation seen on CT 05/09 Fluid retention (Acute) Thrombosis of right saphenous vein (Acute) Left femoral vein DVT (Acute) Anxiety and depression (Chronic) 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 (Acute) Stage IV, high risk, B cell lymphoma, NOS, with extra node involvement(bone, spinal cord,pleura) Hypertrophic toenail (Acute) Anemia (Chronic) Cor pulmonale (chronic) (Chronic) Suprapubic catheter (Chronic) Incontinence of bowel (Acute) Acute kidney injury (Acute ~09/28/19) due to methotrexate therapy Weakness of both lower extremities (Acute) Hyperuricemia (Acute) Paroxysmal A-fib (Acute) Dehydration (Acute) Limited code status (Acute) Pleural effusion (Acute) Abdominal lymphadenopathy (Acute) DVT (deep venous thrombosis) (Chronic) Mediastinal adenopathy (Acute) Lung mass (Acute) COPD exacerbation (Acute) Respiratory distress (Acute) Overgrown toenails (Acute) DJD (degenerative joint disease) (Chronic) Depressive disorder (Chronic) Crohn's disease (Chronic) Self Reported Venous stasis ulcer of ankle limited to breakdown of skin (Acute) Venous stasis dermatitis of both lower extremities (Acute) Pulmonary HTN (Chronic) Mitral regurgitation (Chronic) Diastolic dysfunction (Chronic) Lymphedema of both lower extremities (Chronic) Ischemic ulcer of right ankle, limited to breakdown of skin (Acute) Smoking greater than 40 pack years (Chronic) cont on smoking cessation 08/2019 quit smoking; quit 2019 Venous insufficiency of both lower extremities (Chronic) as above Left varicocele (Acute 05/09/17) Microscopic hematuria (Acute 02/03/16) Osteoarthritis of hip (Acute 12/14/12) Right hydrocele (Acute 02/04/17) Osteoarthritis of hip (Acute 01/14/14) Total hip arthroplasty by Dr. Jose Nieves 01/14/14; Ceramic head; press fit. Mitral valve prolapse (Chronic) Microscopic hematuria (Acute) Medical History Alcohol dependence in remission Anxiety BPH (benign prostatic hyperplasia) Cellulitis of right leg Gastroesophageal reflux disease Hearing loss Housing problems Hypercholesterolemia On anticoagulant therapy for chronic DVTs Osteoarthritis Right femoral vein DVT Tobacco use disorder Ulcer of right lower extremity Varicose veins of both lower extremities with complications Venous stasis ulcer of right lower leg with edema of right lower leg Surgical History Cholecystectomy (11/01/17) Colonoscopy - MAC EGD - MAC Extraction of cataract Repair of inguinal hernia Bilateral Repair of umbilical hernia Tonsillectomy and adenoidectomy Total replacement of hip bilateral Family History Mother Breast cancer Hypertension Father CHF (congestive heart failure) Social History Smoking/Tobacco Use Status: Former Tobacco Use Quit Date: 08/23/19 Tobacco: How many years used: 50 Quit status: quit date established (06/29/2019) Smoking risk assessment performed?: Yes Alcohol Intake: former Year quit: 2007 Drug use: Never Substance use type: does not use Adopted: No Caregiver/Support person: Yes Foster care: No Household members: none Housing: apartment Number of Children: 3 Communication Needs: None Do you need help understanding health information?: Always current occupation: Disabled Sexually active: Yes Do you think of yourself as: straight/heterosexual Current gender identity: male What is your relationship status?: Panel score (0-1 are the most socially isolated patients): 0 What type of physical activity do you participate in: none Seatbelt use: always Do you feel safe at home: Yes Do you feel safe in your relationship?: Yes
[2021-07-31] MEDS: Torsemide 20 MG TAB 60 MG PO (07:40)
[2021-07-31] MEDS: Potassium Chloride 20 MEQ TABCR PO (07:40)
[2021-07-31] MEDS: Spironolactone 25 MG TAB PO (07:40)
[2021-07-31] MEDS: Sennosides/Docusate Sodium TAB 1 TAB PO (07:40)
[2021-07-31] MEDS: Apixaban 5 MG TAB PO (07:41)
[2021-07-31] MEDS: Famotidine 20 MG TAB PO (07:41)
[2021-07-31] MEDS: Gabapentin 100 MG CAP PO (07:41)
--- NOTE | 2021-07-31 12:13 | PDOC.CMDIS ---
- If Service Date Differs Date of service: 07/31/21 Time of Service: 12:13 LACE Index Scoring Tool - Questions: Length of Stay (in days): 2 Acuity (Admit via E.D.?): Yes Comorbidities: Chronic Pulmonary Disease E.D. Visits: 1 - Answers: Total Score: 8 Risk of Readmission: Low Risk Care Management Discharge Reason for Hospitalization: azotemia, electyrolyte imbalance Discharge Plan: Isra will discharge home with a resumption of services through home health. He will follow up with his community providers and discharge plan of care. Isra will transport via private vehicle with RCT, coordinated by CM Patient/Family Education Needs: Review discharge instructions, discuss Ask Me Three. Services Needed at Discharge: Home Health Care Services (Resumption RN/PT/[facility]), Transportation (RCT)
== END 2021-07-31 08:41 | disposition designated cancer center or children's hospital (05) | DRG 641 ==
LOC: ER 07-29 00:26 → MS 07-29 01:08
PROVIDERS: Family Medicine; Admitting Provider General Practice; Emergency Provider Emergency Medicine; PCP Family Medicine; Visit Provider General Practice
DX: E87.6 Hypokalemia (principal); C85.18 Unspecified B-cell lymphoma, lymph nodes of multiple sites; N04.9 Nephrotic syndrome with unspecified morphologic changes; I50.30 Unspecified diastolic (congestive) heart failure; G95.20 Unspecified cord compression; R79.89 Other specified abnormal findings of blood chemistry; E87.1 Hypo-osmolality and hyponatremia; F41.9 Anxiety disorder, unspecified; F32.9 Major depressive disorder, single episode, unspecified; Z86.718 Personal history of other venous thrombosis and embolism; Z93.51 Cutaneous-vesicostomy status; Z79.01 Long term (current) use of anticoagulants; T50.2X5A Adverse effect of carbonic-anhydrase inhibitors, benzothiadiazides and other diuretics, initial encounter; D64.9 Anemia, unspecified; I27.81 Cor pulmonale (chronic); I48.0 Paroxysmal atrial fibrillation; I34.0 Nonrheumatic mitral (valve) insufficiency; I89.0 Lymphedema, not elsewhere classified; I87.2 Venous insufficiency (chronic) (peripheral); F10.21 Alcohol dependence, in remission; E78.00 Pure hypercholesterolemia, unspecified; K21.9 Gastro-esophageal reflux disease without esophagitis; N40.0 Benign prostatic hyperplasia without lower urinary tract symptoms; Z87.891 Personal history of nicotine dependence; R33.9 Retention of urine, unspecified; J43.2 Centrilobular emphysema
CPT/HCPCS: 36415; 80048; 80053; 82550; 87077; 87635; 93005; 94640; 96361; 96365; 96366; 99285; 71045; 76700; 81003; 81015; 82248; 82565; 83735; 84132; 84156; 84443; 84450; 84460; 85025; 85610; 85730; 87086; 87186; 93010; 99219; 99225; 99232; 99239; G0378; J0696; J3480

== ENCOUNTER 2021-08-04 15:46 | Outpatient (REF) | payer MEDICARE, MEDICAID, SELFPAY ==
[2021-08-04 19:33] LABS: Abs Immature Grans 0.04 10^3/uL (0.0-0.06); Absolute Basophil Count 0.04 10^3/uL (0.0-0.2); Absolute Eosinophil Count 0.15 10^3/uL (0.0-0.7); Absolute Lymphocyte Count 1.48 10^3/uL (1.2-3.4); Absolute Monocyte Count 0.61 10^3/uL (0.1-0.8); Absolute Neutrophil Count 4.58 10^3/uL (1.2-6.7); Basophils % 0.6; Eosinophils % 2.2; HGB 13.3 g/dL (13.5-17.5); Immature Grans % 0.6; Lymphocytes % 21.4; MCH 31.7 pg (27.0-33.0); MCHC 31.7 % (32.0-36.0); MCV 100.2 fL (80-95); MPV 11.1 fL (8.0-11.0); Monocytes % 8.8; Neutrophils % 66.4; Platelet Count 181 10^3/uL (130-400); RBC 4.19 10^6/uL (4.36-5.78); RDW 14.4 % (11.8-14.1); RDW-SD 53.1 fL
[2021-08-04 20:48] LABS: Anion Gap 8.8 mmol/L (3-11); BUN 38 mg/dL (7-18); CO2 30.2 mmol/L (21.0-32.0); CREATININE 1.2 mg/dL (0.70-1.30); Calcium 8.8 mg/dL (8.5-10.1); Chloride 99 mmol/L (98-107); Glucose 83 mg/dL (74-106); Potassium 3.8 mmol/L (3.5-5.1); Sodium 138 mmol/L (136-145)
== END 2021-08-04 15:47 | disposition home or self-care (01) ==
LOC: LBN 15:46
PROVIDERS: PCP Family Medicine; Visit Provider Nurse Practitioner Family
DX: I50.32 Chronic diastolic (congestive) heart failure (principal)
CPT/HCPCS: 80048; 85025; 86140

== ENCOUNTER 2021-08-20 19:13 | Outpatient (REF) | payer MEDICARE, MEDICAID, SELFPAY ==
[2021-08-20 13:42] LABS: Anion Gap 9.3 mmol/L (3-11); BUN 40 mg/dL (7-18); CO2 29.7 mmol/L (21.0-32.0); CREATININE 1.2 mg/dL (0.70-1.30); Calcium 8.9 mg/dL (8.5-10.1); Chloride 96 mmol/L (98-107); Glucose 88 mg/dL (74-106); Potassium 3.9 mmol/L (3.5-5.1); Sodium 135 mmol/L (136-145)
== END 2021-08-20 19:14 | disposition home or self-care (01) ==
LOC: LBN 19:13
PROVIDERS: PCP Family Medicine; Visit Provider Family Medicine
DX: E87.1 Hypo-osmolality and hyponatremia (principal); N04.9 Nephrotic syndrome with unspecified morphologic changes
CPT/HCPCS: 80048

== ENCOUNTER → 2021-11-27 09:52 | Outpatient (BNVA) | payer MEDICARE, MEDICAID, SELFPAY | PROVIDERS: PCP Family Medicine; Referring Provider Family Medicine; Visit Provider Urology | DX: R33.8 Other retention of urine (principal); Z93.59 Other cystostomy status | CPT/HCPCS: 99213 ==

== ENCOUNTER 2022-01-19 13:58 | Outpatient (REF) | payer MEDICARE, MEDICAID, SELFPAY ==
[2022-01-19 16:19] LABS: BUN 48 mg/dL (7-18); CREATININE 1.4 mg/dL (0.70-1.30); Calcium 9.4 mg/dL (8.5-10.1); Chloride 95 mmol/L (98-107); Estimated GFR 56.13 (mL/min/1.73m2); Glucose 129 mg/dL (74-106); Potassium 3.8 mmol/L (3.5-5.1); Sodium 137 mmol/L (136-145)
== END 2022-01-19 13:59 | disposition home or self-care (01) ==
LOC: LBN 13:58
PROVIDERS: PCP Family Medicine; Visit Provider Family Medicine
DX: E87.6 Hypokalemia (principal)
CPT/HCPCS: 80048

== ENCOUNTER 2022-03-02 11:18 | Outpatient (REF) | payer MEDICARE, SELFPAY ==
[2022-03-02 11:45] LABS: Anion Gap 7.4 mmol/L (3-11); BUN 72 mg/dL (7-18); CO2 36.6 mmol/L (21.0-32.0); CREATININE 1.7 mg/dL (0.70-1.30); Calcium 9.6 mg/dL (8.5-10.1); Chloride 89 mmol/L (98-107); Estimated GFR 44.46 (mL/min/1.73m2); Glucose 102 mg/dL (74-106); Potassium 3.1 mmol/L (3.5-5.1); Sodium 133 mmol/L (136-145)
== END 2022-03-02 11:19 | disposition home or self-care (01) ==
LOC: LBN 11:18
PROVIDERS: PCP Family Medicine; Visit Provider Family Medicine
DX: N04.9 Nephrotic syndrome with unspecified morphologic changes (principal)
CPT/HCPCS: 80048

== ENCOUNTER 2022-03-09 18:02 | Outpatient (REF) | payer MEDICARE, SELFPAY ==
[2022-03-09 16:26] LABS: Anion Gap 9.1 mmol/L (3-11); CO2 32.9 mmol/L (21.0-32.0); CREATININE 1.8 mg/dL (0.70-1.30); Calcium 10.3 mg/dL (8.5-10.1); Chloride 88 mmol/L (98-107); Estimated GFR 41.51 (mL/min/1.73m2); Glucose 99 mg/dL (74-106); Potassium 3.4 mmol/L (3.5-5.1); Sodium 130 mmol/L (136-145)
[2022-03-09 16:54] LABS: BUN 87 mg/dL (7-18)
== END 2022-03-09 18:03 | disposition home or self-care (01) ==
LOC: LBN 18:02
PROVIDERS: PCP Family Medicine; Visit Provider Family Medicine
DX: E87.6 Hypokalemia (principal); N04.8 Nephrotic syndrome with other morphologic changes; R60.0 Localized edema
CPT/HCPCS: 80048

== ENCOUNTER 2022-06-08 17:14 | Outpatient (REF) | payer MEDICARE, MEDICAID, SELFPAY ==
[2022-06-08 18:17] LABS: Anion Gap 11.4 mmol/L (3-11); BUN 67 mg/dL (7-18); CO2 30.6 mmol/L (21.0-32.0); CREATININE 1.7 mg/dL (0.70-1.30); Calcium 9.4 mg/dL (8.5-10.1); Chloride 91 mmol/L (98-107); Estimated GFR 44.18 (mL/min/1.73m2); Glucose 123 mg/dL (74-106); Potassium 3.3 mmol/L (3.5-5.1); Sodium 133 mmol/L (136-145)
== END 2022-06-08 17:15 | disposition home or self-care (01) ==
LOC: LBN 17:14
PROVIDERS: PCP Family Medicine; Visit Provider Family Medicine
DX: R25.2 Cramp and spasm (principal)
CPT/HCPCS: 80048

== ENCOUNTER 2022-07-06 01:26 | Outpatient (CLI) | payer MEDICARE, MEDICAID, SELFPAY ==
--- NOTE | 2022-07-06 06:30 | DI.US_ITS ---
APPROVED REPORT EXAM: Comprehensive 2D, Doppler, and color-flow Echocardiogram Patient Location: Out-Patient Viol[employer] Detective: Ana M Deng RDCS (AE) Indications: Worsening dyspnea on exertion, Known CHF Other Information Study Quality: Poor. Technically limited study due to body habitus, inability to position patient exa m done in wheelchair. Conclusion Technically difficult and suboptimal study Left ventricle appears grossly normal in size and systolic function. No segmental wall motion abnorm alities are appreciated The left atrium, right ventricle and right atrium are not well visualized No structural or hemodynamically significant valvular disease is identified Normal estimated right ventricular systolic pressure 27 mmHg Wall motion Left Ventricle The left ventricle is normal size. The overall left ventricular systolic function appears normal. The re is normal left ventricular wall thickness. There is no ventricular septal defect visualized. LVEF is 55%. Right Ventricle Right ventricle is not well visualized. Right ventricular systolic function could not be assessed. Th e RVSP is 26.6 mmHg. Atria Left atrium is not well visualized. Right atrium is not well visualized. The interatrial septum is in tact with no evidence for an atrial septal defect. Aortic Valve The aortic valve is normal in structure. Aortic valve is trileaflet. There is no aortic valvular sten osis. No aortic regurgitation is present. Mitral Valve The mitral valve is normal in structure. No evidence of mitral valve stenosis. Mild mitral regurgitat ion. Tricuspid Valve The tricuspid valve is normal in structure. There is no tricuspid valve stenosis. Mild tricuspid regu rgitation. Pulmonic Valve The pulmonary valve is normal in structure. There is no pulmonic valvular stenosis. Trace to mild pul leslie regurgitation. Great Vessels The aortic root is normal in size. The ascending aorta is normal in size. Ascending aorta is not visu alized. IVC is normal in size and collapses >50% with inspiration. Pericardium There is no pericardial effusion. 2D Dimensions IVSD d PLAX 0.82 cm M: 0.6-1.2 LVPW d PLAX 0.90 cm M: 0.6 - 1.2 LVID d PLAX 5.74 cm M: 4.2 - 5.8 LVDs 4.00 cm M: 2.5 - 4.0 Ao Root d 2.65 cm M: 3.1 - 3.7 Ao Asc Diam d 3.28 cm M: 2.6 - 3.4 LV EF Teichholz 55.9 % FS 29.55 % LV Diastology MV E' medial 0.077 (>0.07 m/s) E/A Ratio 0.6 LV E/e MED 5.25 (<14) MV E Vmax 0.41 (0.4-1.3 m/s) MV E' lateral 0.086 (>0.1 m/s) MV A Vmax 0.65 (0.4-1.3 m/s) LV E/e LAT 4.65 (<14) MV E/A Ratio 0.58 MV E/E' medial 5.30 MV E/E' lateral 4.70 Aortic Valve LVOT Area 3.48 cm2 AoV Area Vmax 2.99 cm2 LVOT Vmax 0.98 m/s AoV Area/ BSA (Vmax) 1.45 cm2/m2 LVOT Mean Karthikeyan. 0.67 m/s PRIYANKA Mean Karthikeyan. 3.05 cm2 LVOT Peak Grad 3.8 mmHg PRIYANKA Mean Karthikeyan. Index 1.47 cm2/m2 LVOT Mean Grad 2.1 mmHg LVOT VTI 0.179 m LVOT Diam s 2.10 cm AoV Vmax 1.14 m/s Velocity Ratio 0.86 AoV Mean Karthikeyan. 0.76 m/s AoV Peak Grad 5.2 mmHg LVOT SV 62.41 mL AoV Mean Grad 2.7 mmHg AoV VTI 0.199 m AoV Area VTI 3.13 cm2 AoV Area/ BSA (VTI) 1.51 cm/m2 Mitral Valve MV DT 311 (160-240 msec) MV PHT 90 msec MV Area PHT 2.44 cm2 MV VTI 0.227 m MV Area VTI 2.75 (4.0-6.0 cm2) Pulmonary Valve PV Vmax 1.37 (0.5-1.5 m/s) RVOT Peak Gr. 1.34 mmHg PV Peak Grad 7.5 mmHg RVOT Mean Gr. 0.70 mmHg PV Mean Grad 3.9 mmHg RVOT VTI 0.125 m PV VTI 0.218 m RVOT Vmax 0.58 m/s Tricuspid Valve TR Peak Grad 23.5 mmHg TR Vmax 2.43 m/s RA Pressure 3.00 mmHg RVSP (TR) 26.6 mmHg
== END 2022-07-06 01:46 ==
LOC: DI 01:26
PROVIDERS: PCP Family Medicine; Visit Provider Family Medicine
DX: I50.9 Heart failure, unspecified (principal)
CPT/HCPCS: 93306

== ENCOUNTER 2022-08-30 01:13 | Outpatient (CLI) | payer MEDICARE, MEDICAID, SELFPAY ==
--- NOTE | 2022-08-30 08:15 | DI.CTLCSR_ITS ---
Exam(s) CT CHEST LUNG CANCER SCREEN EXAM: CT CHEST LUNG CANCER SCREEN CLINICAL HISTORY: Screening for lung cancer,former smoker, h/o lymphoma treatment,z87.891 TECHNIQUE: Imaging Protocol: Axial computed tomography images with coronal and sagittal reformatted images were created and reviewed. Low dose screening protocol. COMPARISON: CT CT CHEST PE CTA from 02/11/2021 CR,XR XR PORTABLE CHEST AP from 07/28/2021 FINDINGS: Tracheobronchial tree: No bronchiectasis or mucus plugging.. Mediastinum and Linda: No dominant adenopathy or fluid collection. Pulmonary parenchyma: No consolidation or dominant measurable mass. Moderate emphysematous changes. Lung Nodules: None. Pleura: No effusion. No pneumothorax. Heart: The heart is mildly dilated. No coronary artery calcifications are seen. Aorta: Thoracic aorta non-dilated.Minimal calcification at arch. Upper abdomen: Unremarkable. Status post cholecystectomy. Bones: Scoliosis and degenerative changes. Soft Tissues: Bilateral gynecomastia, new from prior. IMPRESSION: No suspicious pulmonary nodules. Lung RADS Cat 1 - Negative: No nodules and definitely benign nodules Lung-RADS 1.0 CATEGORIES: Category 0 - Prior chest CT exam(s) being located for comparison. Category 1 - Annual screening in 12 months. No nodules or definitely benign nodules. Category 2 - Annual screening in 12 months. Benign appearance. Nodules with low likelihood of becomin g active cancer. Category 3 - 6-month follow-up. Probably benign. Short-term follow-up suggested. Nodules with low lik elihood of becoming active cancer. Category 4A - 3-month follow-up and CT/PET if >8 mm in size. Suspicious finding. Findings which requi re additional testing. Category 4B - Findings which require additional testing and tissue sampling. Category 4X - Category 3 or 4 nodules with additional features or imaging findings that increases the suspicion of malignancy. Modifier S- Potentially clinically significant findings (non lung cancer) RADIATION DOSE DELIVERED: 80.61mGy.cm Total DLP DATA REPOSITORY: All CT scans at this facility are submitted to the National Radiology Data Registry (NRDR) Dose Index Registry (DIR) with the [employer] (ACR). RADIATION OPTIMIZATION: All CT scans at this facility use at least one of these dose optimization te chniques: automated exposure control; mA and/or kV adjustment per patient size (includes targeted exa ms where dose is matched to clinical indication); or iterative reconstruction.
== END 2022-08-30 01:33 ==
LOC: DI 01:13
PROVIDERS: PCP Family Medicine; Visit Provider Family Medicine
DX: Z87.891 Personal history of nicotine dependence (principal)
CPT/HCPCS: 71271

== ENCOUNTER 2022-10-12 12:43 | Outpatient (REF) | payer MEDICARE, MEDICAID, SELFPAY ==
[2022-10-12 14:52] LABS: Anion Gap 11.3 mmol/L (3-11); BUN 69 mg/dL (7-18); CO2 29.7 mmol/L (21.0-32.0); CREATININE 1.7 mg/dL (0.70-1.30); Calcium 9.4 mg/dL (8.5-10.1); Chloride 93 mmol/L (98-107); Estimated GFR 44.18 (mL/min/1.73m2); Glucose 87 mg/dL (74-106); Magnesium 2.1 mg/dL (1.8-2.4); Potassium 4.2 mmol/L (3.5-5.1); Sodium 134 mmol/L (136-145)
== END 2022-10-12 12:44 | disposition home or self-care (01) ==
LOC: LBN 12:43
PROVIDERS: PCP Family Medicine; Visit Provider Internal Medicine
DX: I50.9 Heart failure, unspecified (principal)
CPT/HCPCS: 80048; 83735

== ENCOUNTER 2022-10-14 04:28 | Outpatient (CLI) | payer MEDICARE, MEDICAID, SELFPAY ==
[2022-10-14] MEDS: Albuterol HFA 18 GM 200 PUFF INH IH (14:14)
[2022-10-14] MEDS: Inhaler, Assist Device 1 EACH MC (14:15)
--- NOTE | 2022-10-14 16:03 | W.PFT ---
Date of service: 10/14/22 Time of Service: 13:08 Pulmonary Function Test Result Indications: Emphysema Interpretation Spirometry: There is no airflow limitation. There is no significant bronchodilator response. The FVC is low. Lung Volumes: Normal lung volumes Diffusion Capacity: Decreased diffusion Airway Pressure: Normal airways resistance Impression Isolated diffusion deficit. This can occur with early ILD, emphysema or pulmonary vascular disease. Clinical Correlation therefore is recommended.
== END 2022-10-14 04:29 | disposition home or self-care (01) ==
LOC: RT 04:28
PROVIDERS: PCP Family Medicine; Visit Provider Student in an Organized Health Care Education/Training Program
DX: J43.9 Emphysema, unspecified (principal)
CPT/HCPCS: 94060; 94726; 94729

== ENCOUNTER 2022-10-26 10:30 | Outpatient (REF) | payer MEDICARE, MEDICAID, SELFPAY ==
[2022-10-26 11:27] LABS: Anion Gap 9.4 mmol/L (3-11); BUN 56 mg/dL (7-18); CO2 29.6 mmol/L (21.0-32.0); CREATININE 1.5 mg/dL (0.70-1.30); Calcium 9.3 mg/dL (8.5-10.1); Chloride 99 mmol/L (98-107); Estimated GFR 51.35 (mL/min/1.73m2); Glucose 89 mg/dL (74-106); Magnesium 1.9 mg/dL (1.8-2.4); Potassium 3.7 mmol/L (3.5-5.1); Sodium 138 mmol/L (136-145)
== END 2022-10-26 10:31 | disposition home or self-care (01) ==
LOC: LBN 10:30
PROVIDERS: PCP Family Medicine; Visit Provider Internal Medicine
DX: I50.9 Heart failure, unspecified (principal)
CPT/HCPCS: 80048; 83735

== ENCOUNTER 2022-11-09 11:31 | Outpatient (REF) | payer MEDICARE, MEDICAID, SELFPAY ==
[2022-11-09 13:11] LABS: Anion Gap 8.7 mmol/L (3-11); BUN 48 mg/dL (7-18); CO2 31.3 mmol/L (21.0-32.0); CREATININE 1.8 mg/dL (0.70-1.30); Calcium 9.1 mg/dL (8.5-10.1); Chloride 98 mmol/L (98-107); Estimated GFR 41.26 (mL/min/1.73m2); Glucose 89 mg/dL (74-106); Magnesium 2.2 mg/dL (1.8-2.4); Potassium 4.2 mmol/L (3.5-5.1); Sodium 138 mmol/L (136-145)
== END 2022-11-09 11:32 | disposition home or self-care (01) ==
LOC: LBN 11:31
PROVIDERS: PCP Family Medicine; Visit Provider Internal Medicine
DX: I50.9 Heart failure, unspecified (principal)
CPT/HCPCS: 80048; 83735

== ENCOUNTER 2022-11-23 10:40 | Outpatient (REF) | payer MEDICARE, MEDICAID, SELFPAY ==
[2022-11-23 13:57] LABS: BUN 38 mg/dL (7-18); CREATININE 1.3 mg/dL (0.70-1.30); Chloride 99 mmol/L (98-107); Estimated GFR 60.96 (mL/min/1.73m2); Glucose 95 mg/dL (74-106); Magnesium 2.3 mg/dL (1.8-2.4); Potassium 4.2 mmol/L (3.5-5.1); Sodium 138 mmol/L (136-145)
== END 2022-11-23 10:41 | disposition home or self-care (01) ==
LOC: LBN 10:40
PROVIDERS: PCP Family Medicine; Visit Provider Internal Medicine
DX: I50.9 Heart failure, unspecified (principal)
CPT/HCPCS: 80048; 83735

== ENCOUNTER → 2022-11-23 14:21 | Outpatient (BNVA) | payer MEDICARE, MEDICAID, SELFPAY | PROVIDERS: PCP Family Medicine; Referring Provider Family Medicine; Visit Provider Urology | DX: R33.9 Retention of urine, unspecified (principal); Z93.59 Other cystostomy status | CPT/HCPCS: 99213 ==

== ENCOUNTER 2022-12-09 14:12 | Outpatient (REF) | payer MEDICARE, MEDICAID, SELFPAY ==
[2022-12-09 12:46] LABS: Anion Gap 5.6 mmol/L (3-11); BUN 60 mg/dL (7-18); CO2 33.4 mmol/L (21.0-32.0); CREATININE 1.6 mg/dL (0.70-1.30); Calcium 9.5 mg/dL (8.5-10.1); Chloride 95 mmol/L (98-107); Estimated GFR 47.52 (mL/min/1.73m2); Glucose 82 mg/dL (74-106); Magnesium 1.9 mg/dL (1.8-2.4); Sodium 134 mmol/L (136-145)
== END 2022-12-09 14:13 | disposition home or self-care (01) ==
LOC: LBN 14:12
PROVIDERS: PCP Family Medicine; Visit Provider Internal Medicine
DX: I50.9 Heart failure, unspecified (principal)
CPT/HCPCS: 80048; 83735

== ENCOUNTER → 2022-12-23 02:59 | Outpatient (CLI) | payer MEDICARE, MEDICAID, SELFPAY ==
--- NOTE | 2022-12-23 10:31 | DI.RAD_ITS ---
Exam(s) XR CERVICAL SPINE COMP 4-5V EXAM: XR CERVICAL SPINE COMP 4-5V CLINICAL HISTORY: Likely upper cervical radic on R side,CERVICAL RADICULAR PAIN,M54.12. TECHNIQUE: 2D digital imaging was performed. COMPARISON: No exams were available for comparison FINDINGS: Eight views: No evidence of acute fracture. There is some disc space narrowing at C5-6 and C6-7 levels. There is mild degenerative anterolisthesis of C4 upon C5. This is related to facet arthropathy. No prevertebral soft tissue swelling. No osseous lesions. On the oblique views there are no promine nt Luschka joint osteophytes evident. IMPRESSION: Multilevel degenerative disc disease and facet arthropathy. Mild degenerative anterolisthesis C4 upo n C5 related to facet arthropathy. DATA REPOSITORY: RADIATION DOSE DELIVERED:
== END ==
PROVIDERS: PCP Family Medicine; Visit Provider Family Medicine
DX: M50.122 Cervical disc disorder at C5-C6 level with radiculopathy; M50.123 Cervical disc disorder at C6-C7 level with radiculopathy
CPT/HCPCS: 72050

== ENCOUNTER 2022-12-23 12:18 | Outpatient (REF) | payer MEDICARE, MEDICAID, SELFPAY ==
[2022-12-23 13:15] LABS: Anion Gap 10.6 mmol/L (3-11); BUN 60 mg/dL (7-18); CO2 31.4 mmol/L (21.0-32.0); CREATININE 1.6 mg/dL (0.70-1.30); Calcium 9.4 mg/dL (8.5-10.1); Chloride 91 mmol/L (98-107); Estimated GFR 47.52 (mL/min/1.73m2); Glucose 106 mg/dL (74-106); Potassium 3.2 mmol/L (3.5-5.1); Sodium 133 mmol/L (136-145)
== END 2022-12-23 12:19 | disposition home or self-care (01) ==
LOC: LBN 12:18
PROVIDERS: PCP Family Medicine; Visit Provider Internal Medicine
DX: I50.9 Heart failure, unspecified (principal); R79.89 Other specified abnormal findings of blood chemistry
CPT/HCPCS: 80048; 83735

== ENCOUNTER 2023-01-06 19:46 | Outpatient (REF) | payer MEDICARE, MEDICAID, SELFPAY ==
[2023-01-06 11:32] LABS: Anion Gap 10.4 mmol/L (3-11); BUN 69 mg/dL (7-18); CO2 30.6 mmol/L (21.0-32.0); CREATININE 1.6 mg/dL (0.70-1.30); Calcium 10.1 mg/dL (8.5-10.1); Chloride 92 mmol/L (98-107); Estimated GFR 47.52 (mL/min/1.73m2); Glucose 89 mg/dL (74-106); Magnesium 2.2 mg/dL (1.8-2.4); Potassium 3.8 mmol/L (3.5-5.1); Sodium 133 mmol/L (136-145)
== END 2023-01-06 19:47 | disposition home or self-care (01) ==
LOC: LBN 19:46
PROVIDERS: PCP Family Medicine; Visit Provider Internal Medicine
DX: I50.9 Heart failure, unspecified (principal)
CPT/HCPCS: 80048; 83735

== ENCOUNTER 2023-01-18 16:30 | Outpatient (REF) | payer MEDICARE, MEDICAID, SELFPAY ==
[2023-01-18 17:34] LABS: ALT 50 U/L (16-63); AST 41 U/L (15-37); Albumin 3.4 g/dL (3.4-5.0); Alkaline Phosphatase 114 U/L (46-116); Anion Gap 13.9 mmol/L (3-11); CO2 26.1 mmol/L (21.0-32.0); Calcium 9.6 mg/dL (8.5-10.1); Chloride 92 mmol/L (98-107); Estimated GFR 36.36 (mL/min/1.73m2); Glucose 130 mg/dL (74-106); Magnesium 2.1 mg/dL (1.8-2.4); Potassium 3.5 mmol/L (3.5-5.1); Sodium 132 mmol/L (136-145); Total Protein 7.9 g/dL (6.4-8.2)
[2023-01-18 17:54] LABS: BUN 91 mg/dL (7-18); Bilirubin, Total 0.3 mg/dL (0.2-1.0)
== END 2023-01-18 16:31 | disposition home or self-care (01) ==
LOC: LBN 16:30
PROVIDERS: PCP Family Medicine; Visit Provider Family Medicine
DX: I50.9 Heart failure, unspecified (principal)
CPT/HCPCS: 80053; 83735

== ENCOUNTER 2023-01-24 12:24 | Outpatient (REF) | payer MEDICARE, MEDICAID, SELFPAY ==
[2023-01-24 18:09] LABS: Anion Gap 15.9 mmol/L (3-11); CO2 27.1 mmol/L (21.0-32.0); CREATININE 2.3 mg/dL (0.70-1.30); Calcium 10.3 mg/dL (8.5-10.1); Chloride 90 mmol/L (98-107); Estimated GFR 30.74 (mL/min/1.73m2); Glucose 82 mg/dL (74-106); Potassium 3.8 mmol/L (3.5-5.1); Sodium 133 mmol/L (136-145)
[2023-01-24 19:12] LABS: BUN 80 mg/dL (7-18)
== END 2023-01-24 12:25 | disposition home or self-care (01) ==
LOC: NCHCN 12:24
PROVIDERS: PCP Family Medicine; Visit Provider Family Medicine
DX: N18.30 Chronic kidney disease, stage 3 unspecified (principal); I50.9 Heart failure, unspecified
CPT/HCPCS: 80048

== ENCOUNTER → 2023-01-25 01:02 | Outpatient (CLI) | payer MEDICARE, MEDICAID, SELFPAY ==
--- NOTE | 2023-01-25 14:45 | DI.MRI_ITS ---
Exam(s) MR CERVICAL SPINE WO EXAM: MR CERVICAL SPINE WO CLINICAL HISTORY: Degenerative disc disease,c spine arthritis,m47.812 TECHNIQUE: Multiplanar multisequence MRI of the cervical spine was performed without intravenous con trast. COMPARISON: CR XR CERVICAL SPINE COMP 4-5V from 12/23/2022 FINDINGS: BONES: Vertebral body heights are maintained. Intervertebral disc spaces are normal. Alignment is nor mal. Endplate degenerative signal changes are seen at C5-6 and C6-7. CERVICAL CORD: Craniovertebral junction is unremarkable. The cervical cord is normal size and signal intensity. SOFT TISSUES: Unremarkable. C2-3: No disc herniation or bulge is identified. No significant central spinal canal or neural forami nal stenosis. C3-4: No disc herniation or bulge is identified. No significant central spinal canal or neural forami nal stenosis C4-5: There is prominence of the osteophyte disc complex. There are degenerative changes of the face ts. No significant central spinal canal stenosis. There is mild bilateral neural foraminal stenosis . C5-6: Degenerative changes of the right uncovertebral joint causes moderate right neural foraminal st enosis. No significant central spinal canal or left neural foraminal stenosis. C6-7: There is prominence of the osteophyte disc complex. No significant central spinal canal stenos is is seen. There are degenerative changes of the right uncovertebral joint causing moderate right n eural foraminal stenosis. No significant left neural foraminal stenosis. C7-T1: No disc herniation or bulge is identified. No significant central spinal canal or neural latonia inal stenosis IMPRESSION: 1. Multilevel degenerative changes in the cervical spine as described above. 2. The findings result in right neural foraminal stenosis at C4-5 through C6-C7 and left neural latonia inal stenosis at C4-C5. DATA REPOSITORY:
== END ==
PROVIDERS: PCP Family Medicine; Visit Provider Family Medicine
DX: M47.812 Spondylosis without myelopathy or radiculopathy, cervical region (principal)
CPT/HCPCS: 72141

== ENCOUNTER 2023-02-01 14:32 | Outpatient (REF) | payer MEDICARE, MEDICAID, SELFPAY ==
[2023-02-01 15:57] LABS: ALT 53 U/L (16-63); AST 35 U/L (15-37); Albumin 3.4 g/dL (3.4-5.0); Alkaline Phosphatase 119 U/L (46-116); Anion Gap 12.5 mmol/L (3-11); BUN 48 mg/dL (7-18); Bilirubin, Total 0.3 mg/dL (0.2-1.0); CO2 25.5 mmol/L (21.0-32.0); CREATININE 1.6 mg/dL (0.70-1.30); Calcium 9.7 mg/dL (8.5-10.1); Chloride 99 mmol/L (98-107); Estimated GFR 47.52 (mL/min/1.73m2); Glucose 121 mg/dL (74-106); Sodium 137 mmol/L (136-145); Total Protein 8.1 g/dL (6.4-8.2)
== END 2023-02-01 14:33 | disposition home or self-care (01) ==
LOC: LBN 14:32
PROVIDERS: PCP Family Medicine; Visit Provider Family Medicine
DX: I09.81 Rheumatic heart failure (principal)
CPT/HCPCS: 80053; 83735

== ENCOUNTER 2023-02-15 14:48 | Outpatient (REF) | payer MEDICARE, MEDICAID, SELFPAY ==
[2023-02-15 14:29] LABS: Anion Gap 12.1 mmol/L (3-11); BUN 42 mg/dL (7-18); CO2 26.9 mmol/L (21.0-32.0); CREATININE 1.5 mg/dL (0.70-1.30); Calcium 9.1 mg/dL (8.5-10.1); Chloride 100 mmol/L (98-107); Estimated GFR 51.35 (mL/min/1.73m2); Glucose 93 mg/dL (74-106); Magnesium 2.2 mg/dL (1.8-2.4); Potassium 4.2 mmol/L (3.5-5.1); Sodium 139 mmol/L (136-145)
== END 2023-02-15 14:49 | disposition home or self-care (01) ==
LOC: LBN 14:48
PROVIDERS: PCP Family Medicine; Visit Provider Internal Medicine
DX: I50.9 Heart failure, unspecified (principal)
CPT/HCPCS: 80048; 83735

== ENCOUNTER → 2023-02-17 13:40 | Outpatient (BNVA) | payer MEDICARE, MEDICAID, SELFPAY | PROVIDERS: PCP Family Medicine; Referring Provider Family Medicine; Visit Provider Nurse Practitioner Gerontology | DX: R21 Rash and other nonspecific skin eruption (principal); R33.8 Other retention of urine | CPT/HCPCS: 99213 ==

== ENCOUNTER 2023-03-02 15:42 | Outpatient (REF) | payer MEDICARE, MEDICAID, SELFPAY ==
[2023-03-02 16:26] LABS: Anion Gap 11.9 mmol/L (3-11); BUN 70 mg/dL (7-18); CO2 28.1 mmol/L (21.0-32.0); CREATININE 1.7 mg/dL (0.70-1.30); Calcium 10.2 mg/dL (8.5-10.1); Chloride 95 mmol/L (98-107); Estimated GFR 44.18 (mL/min/1.73m2); Glucose 106 mg/dL (74-106); Magnesium 2.1 mg/dL (1.8-2.4); Potassium 3.3 mmol/L (3.5-5.1); Sodium 135 mmol/L (136-145)
== END 2023-03-02 15:43 | disposition home or self-care (01) ==
LOC: LBN 15:42
PROVIDERS: PCP Family Medicine; Visit Provider Internal Medicine
DX: I50.9 Heart failure, unspecified (principal)
CPT/HCPCS: 80048; 83735

== ENCOUNTER 2023-03-14 18:19 | Outpatient (REF) | payer MEDICARE, MEDICAID, SELFPAY ==
[2023-03-14 14:36] LABS: Anion Gap 9.6 mmol/L (3-11); BUN 37 mg/dL (7-18); CO2 29.4 mmol/L (21.0-32.0); CREATININE 1.7 mg/dL (0.70-1.30); Calcium 9.3 mg/dL (8.5-10.1); Chloride 99 mmol/L (98-107); Estimated GFR 44.18 (mL/min/1.73m2); Glucose 134 mg/dL (74-106); Magnesium 2.4 mg/dL (1.8-2.4); Potassium 3.9 mmol/L (3.5-5.1); Sodium 138 mmol/L (136-145)
== END 2023-03-14 18:20 | disposition home or self-care (01) ==
LOC: LBN 18:19
PROVIDERS: PCP Family Medicine; Visit Provider Internal Medicine
DX: I50.9 Heart failure, unspecified (principal)
CPT/HCPCS: 80048; 83735

== ENCOUNTER 2023-04-14 19:55 | Outpatient (REF) | payer MEDICARE, MEDICAID, SELFPAY ==
[2023-04-14 18:15] LABS: Anion Gap 13.4 mmol/L (3-11); CO2 27.6 mmol/L (21.0-32.0); CREATININE 1.9 mg/dL (0.70-1.30); Calcium 9.7 mg/dL (8.5-10.1); Chloride 90 mmol/L (98-107); Estimated GFR 38.66 (mL/min/1.73m2); Glucose 119 mg/dL (74-106); Magnesium 2.1 mg/dL (1.8-2.4); Potassium 3.8 mmol/L (3.5-5.1); Sodium 131 mmol/L (136-145)
[2023-04-14 18:29] LABS: BUN 84 mg/dL (7-18)
== END 2023-04-14 19:56 | disposition home or self-care (01) ==
LOC: LBN 19:55
PROVIDERS: PCP Family Medicine; Visit Provider Internal Medicine
DX: I50.9 Heart failure, unspecified (principal)
CPT/HCPCS: 80048; 83735

== ENCOUNTER → 2023-04-20 13:21 | Outpatient (BNVA) | payer MEDICARE, MEDICAID, SELFPAY | PROVIDERS: PCP Family Medicine; Referring Provider Family Medicine; Visit Provider Physician Assistant Surgical | DX: J43.9 Emphysema, unspecified (principal); R06.00 Dyspnea, unspecified; Z87.891 Personal history of nicotine dependence | CPT/HCPCS: 99214 ==

== ENCOUNTER 2023-04-26 17:47 | Outpatient (REF) | payer MEDICARE, MEDICAID, SELFPAY ==
[2023-04-26 17:58] LABS: Anion Gap 11.7 mmol/L (3-11); BUN 76 mg/dL (7-18); CO2 26.3 mmol/L (21.0-32.0); CREATININE 1.6 mg/dL (0.70-1.30); Calcium 9.8 mg/dL (8.5-10.1); Chloride 95 mmol/L (98-107); Estimated GFR 47.23 (mL/min/1.73m2); Glucose 95 mg/dL (74-106); Sodium 133 mmol/L (136-145)
[2023-04-26 18:52] LABS: Magnesium 2.1 mg/dL (1.8-2.4)
== END 2023-04-26 17:48 | disposition home or self-care (01) ==
LOC: LBN 17:47
PROVIDERS: PCP Family Medicine; Visit Provider Internal Medicine
DX: I50.9 Heart failure, unspecified (principal)
CPT/HCPCS: 80048; 83735

== ENCOUNTER → 2023-05-10 03:10 | Outpatient (CLI) | payer MEDICARE, MEDICAID, SELFPAY ==
--- NOTE | 2023-05-10 07:30 | DI.US_ITS ---
Exam(s) US LOWER EXTREMITY VENOUS RT EXAM: US LOWER EXTREMITY VENOUS RT CLINICAL HISTORY: ? dvt,swelling rt lower extremity.M79.89 TECHNIQUE: Right lower extremity venous ultrasound performed using grayscale, color-flow, and spectr al Doppler analysis. COMPARISON: US US lower extremity venous RT from 08/31/2018 US US EXTREMITY VENOUS BI from 02/09/2021 FINDINGS: The right common femoral, profunda and popliteal veins demonstrate normal compressibility, augmentati on, and color Doppler. The right femoral vein is again seen to be thin and noncompressible with echo genic material internally. This was seen on the ultrasound of the right lower extremity from 021. The posterior tibial veins are patent. The saphenofemoral junction is unremarkable. There is n o evidence of a Tavarez cyst. The soft tissues are unremarkable. IMPRESSION: 1. There is echogenic material seen within the right femoral vein. The femoral vein is decreased in size. On the prior examination, the mid and distal right femoral vein was also thin and noncompressi ble with echogenic material within. The findings have progressed since the prior examination to enco mpass the entire extent of the right femoral vein at this time. This may represent an acute DVT supe rimposed on chronic scarring. DATA REPOSITORY:
== END ==
PROVIDERS: PCP Family Medicine; Visit Provider Family Medicine
DX: M79.89 Other specified soft tissue disorders (principal)
CPT/HCPCS: 80048; 83735; 93971

== ENCOUNTER 2023-05-10 11:51 | Outpatient (REF) | payer MEDICARE, MEDICAID, SELFPAY ==
[2023-05-10 12:10] LABS: Anion Gap 13.1 mmol/L (3-11); CO2 27.9 mmol/L (21.0-32.0); CREATININE 2.2 mg/dL (0.70-1.30); Chloride 90 mmol/L (98-107); Estimated GFR 32.23 (mL/min/1.73m2); Glucose 81 mg/dL (74-106); Magnesium 2.1 mg/dL (1.8-2.4); Potassium 3.7 mmol/L (3.5-5.1); Sodium 131 mmol/L (136-145)
[2023-05-10 12:44] LABS: BUN 120 mg/dL (7-18)
== END 2023-05-10 11:52 | disposition home or self-care (01) ==
LOC: LBN 11:51
PROVIDERS: PCP Family Medicine; Visit Provider Family Medicine
DX: I50.32 Chronic diastolic (congestive) heart failure (principal); N18.30 Chronic kidney disease, stage 3 unspecified; D64.9 Anemia, unspecified
CPT/HCPCS: 80048; 83735

== ENCOUNTER 2023-05-22 09:47 | Inpatient (IN) | payer MEDICARE, MEDICAID, SELFPAY ==
[2023-05-22] VITALS (59 sets, daily range): BP systolic 66–172; BP diastolic 41–105; PULSE 58–138; RESP 10–22; TEMP 35.6–37.5; O2SAT 89–98
--- NOTE | 2023-05-22 09:30 | RT.EKG_ITS ---
APPROVED REPORT Exam: Resting ECG Reason for Exam: low blood pressure Patient Location: E HR:66 bpm ECG Measurements Heart Rate 66 AXIS ID 178 P 97 QRSd 117 QRS -59 QT 420 T 52 QTc 437 Conclusion Sinus rhythm...normal P axis, V-rate 60- 99 Ventricular premature complex...V complex w/ short R-R interval Incomplete RBBB and LAFB...axis(240,-40), S>R II III aVF Low voltage, precordial leads...precordial leads <1.0mV
[2023-05-22 10:35] LABS: Lactate 1.4 mmol/L (0.6-1.4)
[2023-05-22 10:36] LABS: Abs Immature Grans 0.05 10^3/uL (0.0-0.06); Absolute Basophil Count 0.04 10^3/uL (0.0-0.2); Absolute Eosinophil Count 0.28 10^3/uL (0.0-0.7); Absolute Lymphocyte Count 0.89 10^3/uL (1.2-3.4); Absolute Monocyte Count 0.97 10^3/uL (0.1-0.8); Absolute Neutrophil Count 7.55 10^3/uL (1.2-6.7); Basophils % 0.4; Eosinophils % 2.9; HCT 38.6 % (40.0-50.0); HGB 13.5 g/dL (13.5-17.5); Immature Grans % 0.5; Lymphocytes % 9.1; MCH 32.6 pg (27.0-33.0); MCV 93 fL (80-95); MPV 10.8 fL (8.0-11.0); Monocytes % 9.9; Neutrophils % 77.2; Platelet Count 170 10^3/uL (130-400); RBC 4.14 10^6/uL (4.36-5.78); RDW 13.7 % (11.8-14.1); RDW-SD 46.6 fL; WBC 9.78 10^3/uL (4.4-10.8)
[2023-05-22] MEDS: Lactated Ringers 500 ML 1000 ML IV (10:40)
[2023-05-22 10:57] LABS: ALT 68 U/L (16-63); AST 50 U/L (15-37); Albumin 3.2 g/dL (3.4-5.0); Alkaline Phosphatase 106 U/L (46-116); Anion Gap 10.6 mmol/L (3-11); Bilirubin, Total 0.4 mg/dL (0.2-1.0); CO2 29.4 mmol/L (21.0-32.0); CREATININE 2.3 mg/dL (0.70-1.30); Calcium 9.6 mg/dL (8.5-10.1); Chloride 90 mmol/L (98-107); Estimated GFR 30.55 (mL/min/1.73m2); Glucose 101 mg/dL (74-106); Potassium 3.8 mmol/L (3.5-5.1); Sodium 130 mmol/L (136-145); Total Protein 7.9 g/dL (6.4-8.2); Troponin I < 50 ng/L (< or =60)
--- NOTE | 2023-05-22 11:02 | W.ED.GENAD ---
HPI General Mode of arrival: EMS. Date/Time Provider Initiated Documentation: 05/22/23 09:53. Information obtained by: patient. HPI Narrative: 68-year-old male with multiple medical problems including history of DVT while on anticoagulation, recently started on Lovenox, here with chief complaint of low blood pressure. Patient states he checks his blood pressure daily and is typically around 100/50. Today his blood pressure was 72/43. He called the physician on-call who advised he seek care in the Emergency Department. He does note associated fatigue recently. No chest pain. No shortness of breath. Patient was noted to be hypoxic saturating in the upper 80s on room air and placed on oxygen by EMS. History is limited secondary to poor historian. Patient does note rash over the past couple months that is now full body, itchy. He is scheduled to see a brand communications manager in July. Patient also notes decubitus ulcer of his buttock. Related Data Home Medications Medication Instructions Recorded Confirmed acetaminophen 325 mg tablet 325 - 650 mg (1 - 2 x 325 mg) PO 07/02/19 05/22/23 (Tylenol) Q4H PRN PRN #0 tabs nebulizers #1 ea 02/05/21 05/22/23 disposable gloves (Nitrile Exam #100 ea 10/08/21 05/22/23 Gloves) underpads (Bed Underpads) #40 ea 10/08/21 05/22/23 polyethylene glycol 3350 17 gram 17 g PO BID PRN PRN constipation 05/25/22 05/22/23 oral powder packet #100 ea ascorbic acid (vitamin C) 500 mg See Rx Instructions .Route 06/25/22 05/22/23 tablet (Vitamin C) .COMPLEX #84 tabs albuterol sulfate 90 mcg/actuation 2 puff inhalation Q6H PRN 10/01/22 05/22/23 aerosol inhaler shortness of breath or wheezing #8.5 grams tiotropium 2.5 mcg-olodaterol 2.5 2 puff inhalation DAILY #4 grams 10/01/22 05/22/23 mcg/actuation mist for inhalation (Stiolto Respimat) torsemide 20 mg tablet 40 mg (2 x 20 mg) PO TID #540 tabs 11/01/22 05/22/23 potassium chloride 20 mEq 20 meq PO DAILY #90 tabs 01/25/23 05/22/23 tablet,extended release miconazole nitrate 2 % topical 1 applic topical DAILY #28 grams 01/28/23 05/22/23 cream (Antifungal (miconazole)) simethicone 80 mg chewable tablet 40 mg PO Q6H PRN 02/17/23 05/22/23 (Gas Relief (simethicone)) calcium polycarbophil 625 mg 1,250 mg (2 x 625 mg) PO DAILY #90 02/22/23 05/22/23 tablet (FiberCon) tabs cholecalciferol (vitamin D3) 10 20 mcg (2 x 10 mcg (400 unit)) PO 02/22/23 05/22/23 mcg (400 unit) tablet DAILY #180 tabs spironolactone 25 mg tablet 25 mg PO DAILY #90 tabs 03/03/23 05/22/23 Pull ups #60 ea 04/05/23 05/22/23 metolazone 2.5 mg tablet 2.5 mg PO DAILY PRN Fluid overload 04/05/23 05/22/23 #20 tabs ferrous sulfate 325 mg (65 mg See Rx Instructions .Route 04/21/23 05/22/23 iron) tablet .COMPLEX #28 tabs fluocinonide 0.05 % topical cream 1 applic topical BID #60 grams 05/03/23 05/22/23 wedge pillow #1 ea 05/03/23 05/22/23 enoxaparin 100 mg/mL subcutaneous 100 mg subcut Q12H #30 mL 05/13/23 05/22/23 syringe (Lovenox) pregabalin 75 mg capsule (Lyrica) 75 mg PO BID #180 caps 05/16/23 05/22/23 Previous Rx's Medication Instructions Recorded acetaminophen 325 mg tablet 325 - 650 mg (1 - 2 x 325 mg) PO 07/02/19 (Tylenol) Q4H PRN PRN #0 tabs nebulizers #1 ea 02/05/21 disposable gloves (Nitrile Exam #100 ea 10/08/21 Gloves) underpads (Bed Underpads) #40 ea 10/08/21 polyethylene glycol 3350 17 gram 17 g PO BID PRN PRN constipation 05/25/22 oral powder packet #100 ea ascorbic acid (vitamin C) 500 mg See Rx Instructions .Route 06/25/22 tablet (Vitamin C) .COMPLEX #84 tabs albuterol sulfate 90 mcg/actuation 2 puff inhalation Q6H PRN 10/01/22 aerosol inhaler shortness of breath or wheezing #8.5 grams tiotropium 2.5 mcg-olodaterol 2.5 2 puff inhalation DAILY #4 grams 10/01/22 mcg/actuation mist for inhalation (Stiolto Respimat) torsemide 20 mg tablet 40 mg (2 x 20 mg) PO TID #540 tabs 11/01/22 potassium chloride 20 mEq 20 meq PO DAILY #90 tabs 01/25/23 tablet,extended release miconazole nitrate 2 % topical 1 applic topical DAILY #28 grams 01/28/23 cream (Antifungal (miconazole)) calcium polycarbophil 625 mg 1,250 mg (2 x 625 mg) PO DAILY #90 02/22/23 tablet (FiberCon) tabs cholecalciferol (vitamin D3) 10 20 mcg (2 x 10 mcg (400 unit)) PO 02/22/23 mcg (400 unit) tablet DAILY #180 tabs spironolactone 25 mg tablet 25 mg PO DAILY #90 tabs 03/03/23 Pull ups #60 ea 04/05/23 metolazone 2.5 mg tablet 2.5 mg PO DAILY PRN Fluid overload 04/05/23 #20 tabs ferrous sulfate 325 mg (65 mg See Rx Instructions .Route 04/21/23 iron) tablet .COMPLEX #28 tabs fluocinonide 0.05 % topical cream 1 applic topical BID #60 grams 05/03/23 wedge pillow #1 ea 05/03/23 enoxaparin 100 mg/mL subcutaneous 100 mg subcut Q12H #30 mL 05/13/23 syringe (Lovenox) pregabalin 75 mg capsule (Lyrica) 75 mg PO BID #180 caps 05/16/23 Allergies Allergy/AdvReac Type Severity Reaction Status Date / Time levofloxacin [From Levaquin] AdvReac Intermediate purpura Verified 05/22/23 13:34 silicone AdvReac Intermediate Hives; Rash Verified 05/22/23 13:34 Sulfa (Sulfonamide AdvReac Intermediate Itching Verified 05/22/23 13:34 Antibiotics) Seasonal Allegies Allergy Intermediate Runny nose Uncoded 05/22/23 13:34 General Stated Complaint: Dizzy/Sync DARRELL: 3 Review of Systems All systems reviewed & are unremarkable except as noted in HPI and below Constitutional Constitutional: Denies fever(s) Cardiovascular Cardiovascular: Reports as per HPI Integumentary/Breasts Skin/Breast: Reports as per HPI Exam Const General: cooperative and no acute distress HENMT Mouth: moist mucous membranes Eyes Conjunctivae: conjunctival abnormality bilaterally conjunctival injection Sclera: normal sclerae Neck Neck: trachea midline Resp Auscultation: clear to auscultation bilaterally, no rales, no rhonchi and no wheezes Cardio Rate: regular rate and not tachycardic Rhythm: regular rhythm GI Palpation: soft, not firm, no guarding, no masses, not rigid and nontender Skin Rashes: rashes noted Other: Scaly, erythematous rash with superficial ulcerations, arms, back, abdomen. Decubitus ulcers bilateral buttocks with surrounding erythema and skin breakdown involving the perineum, foul-smelling odor Neuro General: patient alert, patient awake, patient oriented x3 and tone normal Extrem General: edema Laterality: bilateral Psych Appearance: grossly normal Mental Status: mental status grossly normal Course Vital Signs Vital signs: Vital Signs Temperature 37.5 C 05/22/23 09:43 Pulse 70 05/22/23 09:43 Respiratory Rate 18 05/22/23 09:43 Blood Pressure 108/71 05/22/23 09:43 Pulse Oximetry 89 L 05/22/23 09:43 Temperature 37.5 C 05/22/23 09:43 Temperature Source Skin 05/22/23 09:43 Pulse 70 05/22/23 09:43 Respiratory Rate 18 05/22/23 09:43 Blood Pressure 108/71 05/22/23 09:43 Pulse Oximetry 96 05/22/23 09:53 Oxygen Delivery Method Nasal Cannula 05/22/23 09:53 Oxygen Flow Rate 1 05/22/23 09:53 Pain Level 0 05/22/23 09:43 Comment placed on oxygen via nc > 95% 05/22/23 09:43 Lab/Test Results Lab/Test Results: 05/22/23 10:50 Blood Blood Culture - Pending 05/22/23 10:27 Blood Blood Culture - Pending Laboratory Tests Range/Units 05/22/23 10:27 WBC (4.4-10.8) 10^3/uL 9.78 RBC (4.36-5.78) 10^6/uL 4.14 L Hgb (13.5-17.5) g/dL 13.5 Hct (40.0-50.0) % 38.6 L MCV (80-95) fL 93 MCH (27.0-33.0) pg 32.6 MCHC (32.0-36.0) % 35.0 RDW (11.8-14.1) % 13.7 Plt Count (130-400) 10^3/uL 170 MPV (8.0-11.0) fL 10.8 Immature Gran % 0.5 Neutrophils % 77.2 Lymphocytes % 9.1 Monocytes % 9.9 Eosinophils % 2.9 Basophils % 0.4 Nucleated RBC % (0.0-0.3) % 0.0 Absolute Neutrophils (1.2-6.7) 10^3/uL 7.55 H Absolute Lymphocytes (1.2-3.4) 10^3/uL 0.89 L Absolute Monocytes (0.1-0.8) 10^3/uL 0.97 H Absolute Eosinophils (0.0-0.7) 10^3/uL 0.28 Absolute Basophils (0.0-0.2) 10^3/uL 0.04 VBG Lactate (0.6-1.4) mmol/L 1.4 Medical Decision Making 1114 --68-year-old male with multiple medical problems including mitral valve prolapse, emphysema, Crohn's disease, recurrent DVTs, tobacco use, possible pulmonary hypertension, B-cell lymphoma, presents with hypertension noted today at home. Patient has fatigue and some mild dyspnea. Patient saturating in the upper 80s on room air. Nasal cannula oxygen applied and saturations improved as did his symptoms. Patient hypotensive here with systolic in the 70s. 500 mL crystalloid bolus was given and BP did improve. Of note, patient states baseline systolic 95-105. Patient is afebrile. I reviewed outside hospital records and patient apparently has stage IV aggressive, high risk, B-cell lymphoma, with extranodal involvement (bone, spinal cord, pleura). Has received received treatment and unclear of current status. Patient has concerning for body scaling rash -consider neoplastic and related to B-cell lymphoma - with likely superimposed cellulitis abdominal wall. I am concerned about cellulitis of the perineum and infected decubitus ulcers. Plan to initiate broad-spectrum antibiotic coverage. Considered deeper space infection and Vincent's gangrene. Will obtain CT of the abdomen pelvis. Concern for potential acute pulmonary embolism. Plan to obtain CT of the chest. 1332 --CT of the chest, abdomen pelvis was interpreted by radiology: No acute vascular abnormality. No evidence of pulmonary was not. Incidental findings including complex 2.2 cm thick walled cyst arising from the upper pole of the right kidney, unchanged from previous exam 2 years ago. Small simple cyst in left kidney. Scattered calcified granulomas in the spleen. Few scattered small cyst in the liver with diffuse fatty infiltration of the liver. Patient reassessed and BP improved to 100/41. Plan to hospitalize for continued treatment. Will discuss case with the hospitalist. 1400 --I spoke with Dr. Smith, on-call hospitalist, discussed ED presentation and course, she will admit the patient for treatment of cellulitis, hemodynamic monitoring. Lab Data Lab results reviewed: Yes I reviewed the patient's lab results. Labs: 05/22/23 10:50 Blood Blood Culture - Pending 05/22/23 10:27 Blood Blood Culture - Pending Laboratory Tests Range/Units 05/22/23 05/22/23 10:27 10:40 WBC (4.4-10.8) 10^3/uL 9.78 RBC (4.36-5.78) 10^6/uL 4.14 L Hgb (13.5-17.5) g/dL 13.5 Hct (40.0-50.0) % 38.6 L MCV (80-95) fL 93 MCH (27.0-33.0) pg 32.6 MCHC (32.0-36.0) % 35.0 RDW (11.8-14.1) % 13.7 Plt Count (130-400) 10^3/uL 170 MPV (8.0-11.0) fL 10.8 Immature Gran % 0.5 Neutrophils % 77.2 Lymphocytes % 9.1 Monocytes % 9.9 Eosinophils % 2.9 Basophils % 0.4 Nucleated RBC % (0.0-0.3) % 0.0 Absolute Neutrophils (1.2-6.7) 10^3/uL 7.55 H Absolute Lymphocytes (1.2-3.4) 10^3/uL 0.89 L Absolute Monocytes (0.1-0.8) 10^3/uL 0.97 H Absolute Eosinophils (0.0-0.7) 10^3/uL 0.28 Absolute Basophils (0.0-0.2) 10^3/uL 0.04 VBG Lactate (0.6-1.4) mmol/L 1.4 Sodium (136-145) mmol/L 130 L Potassium (3.5-5.1) mmol/L 3.8 Chloride (98-107) mmol/L 90 L Carbon Dioxide (21.0-32.0) mmol/L 29.4 Anion Gap (3-11) mmol/L 10.6 BUN (7-18) mg/dL 104 H* Creatinine (0.70-1.30) mg/dL 2.3 H Est GFR (CKD-EPI 2020) (mL/min/1.73m2) 30.55 Glucose (74-106) mg/dL 101 Calcium (8.5-10.1) mg/dL 9.6 Total Bilirubin (0.2-1.0) mg/dL 0.4 AST (15-37) U/L 50 H ALT (16-63) U/L 68 H Alkaline Phosphatase (46-116) U/L 106 Troponin I (< or =60) ng/L < 50 Total Protein (6.4-8.2) g/dL 7.9 Albumin (3.4-5.0) g/dL 3.2 L COVID-19 Source Nasopharynx SARS-CoV-2 (PCR) (Negative) Negative Influenza Type A (PCR) (Negative) Negative Influenza Type B (PCR) (Negative) Negative RSV (PCR) (Negative) Negative Quality:SDOH Health Related Social Needs: No Data to Display PFSH All Active Problems (Updated 05/22/23 @ 14:07 by Tay Valenzuela MD) Hypotensive episode (Acute) NAZARIO (acute kidney injury) (Acute) Cellulitis (Acute) Cervical spondylosis without myelopathy (Acute) Perineal ulcer (Acute) Cervical spine arthritis (Acute) Cervical radicular pain (Acute) Viral conjunctivitis of both eyes (Acute) Hypoadrenergic postural hypotension (Acute) Dyspnea (Acute) Emphysema lung (Acute) Conductive hearing loss, bilateral (Acute) Chronic serous otitis media, bilateral (Acute) Recurrent serous otitis media of left ear (Acute) Intertrigo (Acute) Sensorineural hearing loss, bilateral (Acute) Conductive hearing loss in right ear (Acute) Congestive heart disease (Chronic 04/15/22) unspeciied HF chronicity, type Target weight 211# Chronic kidney disease, stage 3 unspecified (Chronic) Chronic serous otitis media, right ear (Acute) Nasal vestibulitis (Acute) Mixed hearing loss, bilateral (Acute) Hearing deficit (Acute) Acute serous otitis media of right ear (Acute) Onychomycosis (Acute) Chronic Urinary retention (Acute) Nephrotic syndrome (Acute) Pancreatic lesion (Acute) Hypoattenuation seen on CT 05/09 Fluid retention (Acute) Thrombosis of right saphenous vein (Acute) Left femoral vein DVT (Acute) Anxiety and depression (Chronic) 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 (Acute) Stage IV, high risk, B cell lymphoma, NOS, with extra node involvement(bone, spinal cord,pleura) 09/09/21 ([facility] [place] HEM/ONC) PET CT: No Active Lymphoma (Deauville score 1) Hypertrophic toenail (Acute) Anemia (Chronic) Cor pulmonale (chronic) (Chronic) Suprapubic catheter (Chronic) Incontinence of bowel (Acute) Acute kidney injury (Acute ~09/28/19) due to methotrexate therapy Weakness of both lower extremities (Acute) Hyperuricemia (Acute) Paroxysmal A-fib (Acute) Dehydration (Acute) Limited code status (Acute) Pleural effusion (Acute) Abdominal lymphadenopathy (Acute) DVT (deep venous thrombosis) (Chronic) Mediastinal adenopathy (Acute) Lung mass (Acute) COPD exacerbation (Acute) Respiratory distress (Acute) Overgrown toenails (Acute) DJD (degenerative joint disease) (Chronic) Depressive disorder (Chronic) Crohn's disease (Chronic) Self Reported Venous stasis ulcer of ankle limited to breakdown of skin (Acute) Venous stasis dermatitis of both lower extremities (Acute) Pulmonary HTN (Chronic) Mitral regurgitation (Chronic) Diastolic dysfunction (Chronic) Lymphedema of both lower extremities (Chronic) Ischemic ulcer of right ankle, limited to breakdown of skin (Acute) Smoking greater than 40 pack years (Chronic) cont on smoking cessation 08/2019 quit smoking; quit 2019 Venous insufficiency of both lower extremities (Chronic) as above Left varicocele (Acute 05/09/17) Microscopic hematuria (Acute 02/03/16) Osteoarthritis of hip (Acute 12/14/12) Right hydrocele (Acute 02/04/17) Osteoarthritis of hip (Acute 01/14/14) Total hip arthroplasty by Dr. Jose Nieves 01/14/14; Ceramic head; press fit. Mitral valve prolapse (Chronic) Microscopic hematuria (Acute) Medical History Right femoral vein DVT Hypotension Venous stasis ulcer of right lower leg with edema of right lower leg Cellulitis of right leg Housing problems Tobacco use disorder Alcohol dependence in remission Anxiety 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 Ulcer of right lower extremity Gastroesophageal reflux disease Osteoarthritis Hypercholesterolemia BPH (benign prostatic hyperplasia) Surgical History Total replacement of hip bilateral Tonsillectomy and adenoidectomy Repair of umbilical hernia Repair of inguinal hernia Bilateral EGD - MAC Colonoscopy - MAC Cholecystectomy (11/01/17) Extraction of cataract Family History Mother Breast cancer Hypertension Anxiety Father CHF (congestive heart failure) Maternal Aunt Diabetes Social History Smoking/Tobacco Use Status: Former Tobacco Use Quit Date: 08/23/19 Tobacco: How many years used: 50 Quit status: quit date established (06/29/2019) Smoking risk assessment performed?: Yes Alcohol Intake: former Year quit: 2007 Drug use: Never Substance use type: does not use Adopted: No Caregiver/Support person: Yes Foster care: No Household members: other Details: Self Housing: apartment Number of Children: 0 number of grandchildren: 0 Communication Needs: None Education Level: vocational Do you need help understanding health information?: Often current occupation: Disabled Pets and animals: No Sexually active: No Do you think of yourself as: straight/heterosexual Current gender identity: male What is your relationship status?: How often do you talk on the phone with friends or family?: three or more times per week How often do you get together with friends or relatives?: decline to answer Do you belong to any clubs or organized social groups?: yes Panel score (0-1 are the most socially isolated patients): 2 What type of physical activity do you participate in: other Details: Stretching - ROM - arms and wheelchair-bound Duration: 15-30 minutes/day Frequency: 3-4 times per week Yakelin/Scientologist: [employer] Special yakelin needs: No Seatbelt use: always Drive intox or ride w/intox lease purchase truck driver: No (Does not apply) Do you feel safe at home: Yes Do you feel safe in your relationship?: Yes Discharge Plan Disposition Patient Disposition: Admit to [facility] Condition: Serious Discharge Details Chief Complaint: Dizzy/Sync Clinical Impression: Cellulitis, NAZARIO (acute kidney injury), Hypotensive episode Primary Care Provider: Renan Garcia ED Provider: Tay Valenzuela Home Meds and New Rx's Prescriptions: No Action (DME) underpads [Bed Underpads] Pad See Rx Instructions .ROUTE .MEDSUPPLY Qty: 40 12RF Rx Instructions: As directed, for diarrhea or urinary leakage (DME) disposable gloves [Nitrile Exam Gloves] Misc See Rx Instructions .Route Qty: 100 12RF Rx Instructions: As directed, to change urinary pads and diapers (DME) Pull ups XXL See Rx Instructions .Route .MEDSUPPLY Qty: 60 11RF Rx Instructions: As directed metolazone 2.5 mg tablet 2.5 mg PO DAILY PRN (Reason: Fluid overload) Qty: 20 0RF Rx Instructions: Most call MD for permission to use when weight is over 216 at home (DME) nebulizers Misc See Rx Instructions .ROUTE .MEDSUPPLY Qty: 1 0RF Rx Instructions: As directed polyethylene glycol 3350 17 gram powder in packet 17 g PO BID PRN PRN (Reason: constipation) Qty: 100 0RF Stiolto Respimat 2.5-2.5 mcg/actuation mist 2 puff inhalation DAILY Qty: 4 12RF albuterol sulfate 90 mcg/actuation HFA aerosol inhaler 2 puff inhalation Q6H PRN (Reason: shortness of breath or wheezing) Qty: 8.5 12RF simethicone [Gas Relief (simethicone)] 80 mg tablet,chewable 40 mg PO Q6H PRN Hold Instructions: Pt Stopped/Never Started fluocinonide 0.05 % cream 1 applic topical BID Qty: 60 0RF Rx Instructions: Apply to arms and abdomen (DME) wedge pillow See Rx Instructions .Route .MEDSUPPLY Qty: 1 0RF Rx Instructions: As directed ascorbic acid (vitamin C) [Vitamin C] 500 mg tablet See Rx Instructions .ROUTE .COMPLEX Qty: 84 12RF Dose Instruction: TAKE 1 TABLET BY MOUTH THREE TIMES A DAY (DOSE INCREASE 07/09/21) Rx Instructions: TAKE 1 TABLET BY MOUTH THREE TIMES A DAY (DOSE INCREASE 07/09/21) torsemide 20 mg tablet 40 mg PO TID Qty: 540 3RF potassium chloride 20 mEq tablet extended release 20 meq PO DAILY Qty: 90 3RF miconazole nitrate [Antifungal (miconazole)] 2 % cream 1 applic topical DAILY Qty: 28 6RF Rx Instructions: Apply under skin folds and to any affected area cholecalciferol (vitamin D3) 10 mcg (400 unit) tablet 20 mcg PO DAILY Qty: 180 3RF Rx Instructions: 800 U daily, per [facility] [facility] discharge dated 10/04/19 [facility] calcium polycarbophil [FiberCon] 625 mg tablet 1,250 mg PO DAILY Qty: 90 3RF spironolactone 25 mg tablet 25 mg PO DAILY Qty: 90 3RF ferrous sulfate 325 mg (65 mg iron) tablet See Rx Instructions .ROUTE .COMPLEX Qty: 28 11RF Dose Instruction: TAKE 1 TABLET BY MOUTH DAILY Rx Instructions: TAKE 1 TABLET BY MOUTH DAILY enoxaparin [Lovenox] 100 mg/mL syringe 100 mg subcut Q12H Qty: 30 1RF pregabalin [Lyrica] 75 mg capsule 75 mg PO BID Qty: 180 3RF acetaminophen [Tylenol] 325 mg Tablet 325 - 650 mg PO Q4H PRN PRNQty: 0 0RF
[2023-05-22 11:13] LABS: BUN 104 mg/dL (7-18)
[2023-05-22 11:35] LABS: COVID-19 PCR Negative (Negative); Influenza A PCR Negative (Negative); Influenza B PCR Negative (Negative); RSV PCR Negative (Negative)
[2023-05-22 11:38] LABS: Source Nasopharynx
[2023-05-22] MEDS: Normal Saline - Diluent 50 ML VIAL IJ (12:15)
[2023-05-22] MEDS: Omnipaque 350 MG/ML 100 ML BTL IJ (12:16)
--- NOTE | 2023-05-22 12:27 | NUR.NOTE ---
Bilateral Groin: red/raw/open and bleeding in some areas. Cleaned and barrier cream and barrier pads applied to both sides. Sacrum/Coccyx: Cleaned with saline and gauze some skin/slough came off with cleaning. Area is red/raw/it appears to be some Escher and some skin. Area is tender and bleeding. Xeroform was what was previously on wound, reapplied to whole area, Abd pad applied to each buttock and taped on outside edges only. Unable to tape in center would tape legs together. New clean brief applied. Suprapubic catheter site cleaned, small dab of bacitracin applied, new split gauze applied and taped at the top. Patient has multiple areas of skin tears, lacerations, bruising, dry cracking skin, swelling, etc.
--- NOTE | 2023-05-22 12:36 | DI.CT_ITS ---
Exam(s) CT CHEST PE ABD PELVIS W EXAM: CT CHEST PE ABD PELVIS W CLINICAL HISTORY: dvt, hypoxia, perineal cellulitis. TECHNIQUE: Imaging Protocol: Axial CT angiography was performed with multi-slice acquisition and m ulti-planar and/or 3D reconstructions. CONTRAST MATERIAL: Intravenous: Omnipaque 350 Contrast volume:100 ml Oral: None COMPARISON: CT CT ABDOMEN WO/W from 04/21/2021 FINDINGS: CHEST: PULMONARY ARTERIES: There are no intra-arterial filling defects to suggest the presence of acute pulm onary emboli. LUNGS: Increased dependent markings in both lower lobes for. No pleural effusions. No ominous pulmo nary lesions..COPD emphysematous changes evident. MEDIASTINUM: There is no hilar nor mediastinal adenopathy. Visualized thyroid unremarkable. CARDIAC: Heart size is upper normal. There is no pericardial effusion. There is no significant shif t of the interventricular septum.Thoracic aorta upper normal diameter. No dissection. OSSEOUS: No significant osseous lesions.No fractures. Scoliosis noted. . ABDOMEN: There is no ascites. LIVER: Liver is again noted be hypodense implying steatosis. Multiple small benign cysts in the live r again noted. There are no dilated intrahepatic ducts. GALLBLADDER/BILIARY: The gallbladder is again noted to be surgically absent. The CBD is not dilated. PANCREAS: No evidence of pancreatic mass nor dilatation of the pancreatic duct. SPLEEN: Spleen size is normal. Multiple splenic calcified granulomas are again noted. Splenic and p ortal veins are patent. ADRENALS: There are no significant adrenal masses. KIDNEYS:Benign small cyst in left kidney are again noted. There is also an unchanged cyst in the sup erior pole the right kidney. No solid renal masses. No calculi. No hydronephrosis nor hydroureter. . ABDOMINAL AORTA: Abdominal aorta is not enlarged. LYMPH NODES: There is no retroperitoneal or para-aortic adenopathy. ABDOMINAL WALL/GI: No evidence of significant anterior abdominal wall hernia. No bowel obstruction. PELVIS: LYMPH NODES: There is no intrapelvic nor inguinal adenopathy. GI: No evidence of appendicitis.No evidence of sigmoid diverticulitis. URINARY BLADDER: There is a per cutaneous suprapubic catheter in place. Suggestion of calculus in t he urinary bladder but difficult to evaluate because of beam hardening artifact from the bilateral hi p prostheses. REPRODUCTIVE: Prostate not enlarged. OSSEOUS: Bilateral hip prostheses. Ankylosis of the sacroiliac joints bilaterally. No fractures nor osseous lesions IMPRESSION: 1. No evidence of acute pulmonary emboli nor pulmonary infarction. 2. There are no pleural effusions. 3. Previous cholecystectomy again noted. The biliary tree is not dilated. Multiple small benign cys ts in the liver are again noted. 4. Suprapubic bladder catheter in place. 5. Bilateral hip prostheses. RADIATION DOSE DELIVERED: 1,845.25mGy.cm Total DLP DATA REPOSITORY: All CT scans at this facility are submitted to the National Radiology Data Registry (NRDR) Dose Index Registry (DIR) with the [employer] (ACR). RADIATION OPTIMIZATION: All CT scans at this facility use at least one of these dose optimization te chniques: automated exposure control; mA and/or kV adjustment per patient size (includes targeted exa ms where dose is matched to clinical indication); or iterative reconstruction.
[2023-05-22] MEDS: PIPERACILLIN/TAZO 4.5 GM in Normal Saline 100 ML IVPB ×2 (12:45→21:00)
--- NOTE | 2023-05-22 13:20 | DI.VRAD_ITS ---
PROCEDURE INFORMATION: Exam: CTA Chest With Contrast CTA Abdomen With Contrast Exam date and time: 05/22/2023 12:19 PM Age: 68 years old Clinical indication: Other: Dvt, hypoxia, perineal cellulitis; Additional info: Ok to inject with bad labs per Dr. Tay lange. 100ml of omnipaque 350 total. Single injection. TECHNIQUE: Imaging protocol: Computed tomographic angiography of the chest with contrast. Exam focused on the arteries. Computed tomographic angiography of the abdomen with contrast. Exam focused on the arteries. 3D rendering (Not supervised by radiologist): MIP and/or 3D reconstructed images were created by the technologist. Contrast material: OMNIPAQUE 350; Contrast volume: 100 ml; Contrast route: INTRAVENOUS (IV); COMPARISON: CT CHEST PE CTA 11/02/2021 15:30 FINDINGS: Tubes, catheters and devices: Suprapubic bladder catheter. VASCULATURE: Pulmonary arteries: Normal. No pulmonary emboli. Aorta: Minimal aortic atherosclerosis. Celiac trunk and mesenteric arteries: No occlusion or significant stenosis. Renal arteries: No occlusion or significant stenosis. CHEST: Lungs: The lungs are emphysematous. No focal infiltrate or nodule. Pleural spaces: Unremarkable. No pneumothorax. No pleural effusion. Heart: Unremarkable. No cardiomegaly. No pericardial effusion. ABDOMEN AND PELVIS: Liver: Diffuse fatty infiltration of the liver. No mass or ductal dilatation. Few scattered small cysts. Gallbladder and bile ducts: Gallbladder is been removed. Pancreas: Unremarkable. No mass. No ductal dilation. Spleen: Scattered calcified granulomas in the spleen. Adrenal glands: Unremarkable. No mass. Kidneys and ureters: Complex 2.2 cm thick wall cyst arising from the upper pole of the right kidney. This appears unchanged from previous exam 2 years ago. Kidneys show no calculus or obstruction. Small simple cysts in the left kidney. Stomach and bowel: Unremarkable. No obstruction. No mucosal thickening. Intraperitoneal space: Unremarkable. No free air. No significant fluid collection. Lymph nodes: Unremarkable. No enlarged lymph nodes. Bones/joints: Bilateral hip prostheses. Lumbar spondylosis and levoscoliosis. Soft tissues: Unremarkable. IMPRESSION: No acute vascular abnormality. No evidence of pulmonary embolus. Incidental findings as above appears stable compared to previous exam. Dictated and Authenticated by: Jose Meyer MD. Ordering:LILY Cross MD
--- NOTE | 2023-05-22 14:39 | W.PM.HP.N ---
Date of service: 05/22/23 Time of Service: 14:39 Assessment and Plan Assessment and plan (1) Severe sepsis: Status: Acute Assessment and plan: History of lymphoma and immunocompromise most likely not able to have leukocytosis, fever but BP was 72/43 on report and the patient responded to fluid resuscitation with Cr at 2.3. The patient has signs of end organ damage qualifying him for severe sepsis On Zosyn 4.5 IVPB Q 8 ordering a procalcitonin: result 0.5 Awaiting blood cultures results Awaiting UA results: positive considering wound cultures Monitoring for hypotension, fever, leukocytosis, Trending inflammatory markers CBC in AM (2) Sepsis: Status: Acute Assessment and plan: As above Qualifiers: Sepsis acute organ dysfunction status: with acute organ dysfunction Severe sepsis acute organ dysfunction type: acute renal failure (3) Cellulitis: Status: Acute Assessment and plan: As above and wound consult (4) Perineal ulcer: Status: Acute Assessment and plan: Wound consult (5) UTI (urinary tract infection): Status: Acute Assessment and plan: UA positive On Zosyn Culture pending (6) NAZARIO (acute kidney injury): Status: Acute Assessment and plan: Acute on chronic LR at 80cc/hr holding diuretics for now Avoid nephrotoxic drugs BMP in AM (7) Emphysema lung: Status: Acute Assessment and plan: Continue home meds Stiolto PRN nebs (8) DVT (deep venous thrombosis): Status: Chronic Assessment and plan: Was on lovenox at home after failing Apixaban Will continue home dose; after consult with pharmacy no adjustment needed Will monitor for bleeding Qualifiers: Affected thrombotic vein of extremity: unspecified vein of extremity Chronicity: chronic DVT location: lower extremity Laterality: bilateral Qualified Code(s): I82.503 - Chronic embolism and thrombosis of unspecified deep veins of lower extremity, bilateral (9) Contraindication to deep vein thrombosis (DVT) prophylaxis: Status: Acute Assessment and plan: As above (10) Discharge planning issues: Status: Inactive Assessment and plan: Care management to f/u Palliative care consult:Discuss goal of care and COLTS discussed with Dr. Smith History of Present Illness History of Present Illness Chief Complaint: low blood pressure, sepsis, cellulitis, NAZARIO, Narrative: This 68 years old male patient with a past medical history including history of DVT to the right lower extremity with failed apixaban and now on Lovenox at therapeutic doses, congestive heart failure, and vertigo, chronic kidney disease, B cell lymphoma without reoccurrence, presented in the ED at [facility] today via EMS for evaluation of low blood pressure. The patient reported checking his blood pressure daily with typical values around 100/50; today's blood pressure reading was 72/43. After informing is home health nurse of this finding, the patient was advised by the on-call physician to come to the emergency department. As per the ED provider note the patient has not had any increased fatigue recently, denied chest pain or shortness of breath. EMS noted to be hypoxic with a saturation in the upper 80s and he received oxygen supplementation via nasal cannula. In the emergency room the patient received a total of 1500 mL of normal saline resulting in blood pressure readings of mid 90s over 40s with maps high 50s to low 60s. The EKG in the ED did not show any sign of ischemia and the patient was in a sinus rhythm with heart rate 66. The chest abdomen and pelvis CT did not show any evidence of pulmonary embolus. Labs in the ED were unremarkable except for ANC of 7.55, sodium of 130, BUN 104, creatinine 2.3. The patient also receive an initial dose of piperacillin tazobactam 4.5 g IV. The hospitalist was called and the patient was admitted to the medical surgical floor for evaluation and management of cellulitis, sepsis, NAZARIO. When met, the patient denied dizziness but mentioned adding an episode of lightheadedness early this morning after blowing his nose while at home. The patient also denied change in vision, chills, fever, chest pain, shortness of breath, nausea, vomiting, diarrhea, abdominal pain, hematuria. Patient reported feeling constipated and admitted had bleeding from is perineal/ bottocks wounds while bearing down to have a bowel movement. Patient reported having been diagnosed with dermatitis when I ask about the diffuse scaly/patchy brown-colored rash on his arms, and the diffuse red rash on his abdomen. The patient was initially DNR/DNI as per previous close form but upon discussion the patient decided that he wanted CPR but no intubation. Patient also wants help to change his COLTS form and will have a palliative care consult to decide of his goal of care. Additional lab added showed that ESR 29, CRP 5.90, procalcitonin 0.5. The patient was noted to have clear lungs, no hypoxia, no respiratory distress, no crackles to the lung gonzales, LR 500 mL bolus was ordered to be followed by maintenance LR at 80 cc an hour. Discussed with Dr. Smith Review of Systems All systems reviewed & are unremarkable except as noted in HPI and below PFSH All Active Problems (Updated 05/23/23 @ 12:42 by Harini Sauceda APRN) Severe sepsis (Acute) Septic shock (Acute) Quality of life palliative care patient (Acute) UTI (urinary tract infection) (Acute) Contraindication to deep vein thrombosis (DVT) prophylaxis (Acute) Pulmonary embolism (Chronic) Sepsis (Acute) Hypotensive episode (Acute) NAZARIO (acute kidney injury) (Acute) Cellulitis (Acute) Cervical spondylosis without myelopathy (Acute) Perineal ulcer (Acute) Cervical spine arthritis (Acute) Cervical radicular pain (Acute) Viral conjunctivitis of both eyes (Acute) Hypoadrenergic postural hypotension (Acute) Dyspnea (Acute) Emphysema lung (Acute) Conductive hearing loss, bilateral (Acute) Chronic serous otitis media, bilateral (Acute) Recurrent serous otitis media of left ear (Acute) Intertrigo (Acute) Sensorineural hearing loss, bilateral (Acute) Conductive hearing loss in right ear (Acute) Congestive heart disease (Chronic 04/15/22) unspeciied HF chronicity, type Target weight 211# Chronic kidney disease, stage 3 unspecified (Chronic) Chronic serous otitis media, right ear (Acute) Nasal vestibulitis (Acute) Mixed hearing loss, bilateral (Acute) Hearing deficit (Acute) Acute serous otitis media of right ear (Acute) Onychomycosis (Acute) Chronic Urinary retention (Acute) Nephrotic syndrome (Acute) Pancreatic lesion (Acute) Hypoattenuation seen on CT 05/09 Fluid retention (Acute) Thrombosis of right saphenous vein (Acute) Left femoral vein DVT (Acute) Anxiety and depression (Chronic) 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 (Acute) Stage IV, high risk, B cell lymphoma, NOS, with extra node involvement(bone, spinal cord,pleura) 09/09/21 [place] PET CT: No Active Lymphoma (Deauville score 1) Hypertrophic toenail (Acute) Anemia (Chronic) Cor pulmonale (chronic) (Chronic) Suprapubic catheter (Chronic) Incontinence of bowel (Acute) Acute kidney injury (Acute ~09/28/19) due to methotrexate therapy Weakness of both lower extremities (Acute) Hyperuricemia (Acute) Paroxysmal A-fib (Acute) Dehydration (Acute) Limited code status (Acute) Pleural effusion (Acute) Abdominal lymphadenopathy (Acute) DVT (deep venous thrombosis) (Chronic) Mediastinal adenopathy (Acute) Lung mass (Acute) COPD exacerbation (Acute) Respiratory distress (Acute) Overgrown toenails (Acute) DJD (degenerative joint disease) (Chronic) Depressive disorder (Chronic) Crohn's disease (Chronic) Self Reported Venous stasis ulcer of ankle limited to breakdown of skin (Acute) Venous stasis dermatitis of both lower extremities (Acute) Pulmonary HTN (Chronic) Mitral regurgitation (Chronic) Diastolic dysfunction (Chronic) Lymphedema of both lower extremities (Chronic) Ischemic ulcer of right ankle, limited to breakdown of skin (Acute) Smoking greater than 40 pack years (Chronic) cont on smoking cessation 08/2019 quit smoking; quit 2019 Venous insufficiency of both lower extremities (Chronic) as above Left varicocele (Acute 05/09/17) Microscopic hematuria (Acute 02/03/16) Osteoarthritis of hip (Acute 12/14/12) Right hydrocele (Acute 02/04/17) Osteoarthritis of hip (Acute 01/14/14) Total hip arthroplasty by Dr. Jose Nieves 01/14/14; Ceramic head; press fit. Mitral valve prolapse (Chronic) Microscopic hematuria (Acute) Medical History Right femoral vein DVT Hypotension Venous stasis ulcer of right lower leg with edema of right lower leg Cellulitis of right leg Housing problems Tobacco use disorder Alcohol dependence in remission Anxiety 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 Ulcer of right lower extremity Gastroesophageal reflux disease Osteoarthritis Hypercholesterolemia BPH (benign prostatic hyperplasia) Surgical History Total replacement of hip bilateral Tonsillectomy and adenoidectomy Repair of umbilical hernia Repair of inguinal hernia Bilateral EGD - MAC Colonoscopy - MAC Cholecystectomy (11/01/17) Extraction of cataract Family History Mother Breast cancer Hypertension Anxiety Father CHF (congestive heart failure) Maternal Aunt Diabetes Social History Smoking/Tobacco Use Status: Former Tobacco Use Quit Date: 08/23/19 Tobacco: How many years used: 50 Quit status: quit date established (06/29/2019) Smoking risk assessment performed?: Yes Alcohol Intake: former Year quit: 2007 Drug use: Never Substance use type: does not use Adopted: No Caregiver/Support person: Yes Foster care: No Household members: other Details: Self Housing: assisted living facility Number of Children: 0 number of grandchildren: 0 Communication Needs: None Education Level: vocational Do you need help understanding health information?: Often current occupation: Disabled Pets and animals: No Sexually active: No Do you think of yourself as: straight/heterosexual Current gender identity: male What is your relationship status?: How often do you talk on the phone with friends or family?: three or more times per week How often do you get together with friends or relatives?: decline to answer Do you belong to any clubs or organized social groups?: yes Panel score (0-1 are the most socially isolated patients): 2 What type of physical activity do you participate in: other Details: Stretching - ROM - arms and wheelchair-bound Duration: 15-30 minutes/day Frequency: 3-4 times per week Yakelin/Jewish: Church Special yakelin needs: No Seatbelt use: always Drive intox or ride w/intox food service driver: No (Does not apply) Do you feel safe at home: Yes Do you feel safe in your relationship?: Yes Meds Allergies and Home Medications Allergies Allergy/AdvReac Type Severity Reaction Status Date / Time levofloxacin [From Levaquin] AdvReac Intermediate purpura Verified 05/22/23 13:34 silicone AdvReac Intermediate Hives; Rash Verified 05/22/23 13:34 Sulfa (Sulfonamide AdvReac Intermediate Itching Verified 05/22/23 13:34 Antibiotics) Seasonal Allegies Allergy Intermediate Runny nose Uncoded 05/22/23 13:34 Home Medications Medication Instructions Recorded Confirmed Type acetaminophen 325 mg tablet 325 - 650 mg (1 - 2 x 325 mg) PO 07/02/19 05/22/23 Rx (Tylenol) Q4H PRN PRN #0 tabs nebulizers #1 ea 02/05/21 05/22/23 Rx disposable gloves (Nitrile Exam #100 ea 10/08/21 05/22/23 Rx Gloves) underpads (Bed Underpads) #40 ea 10/08/21 05/22/23 Rx polyethylene glycol 3350 17 gram 17 g PO BID PRN PRN constipation 05/25/22 05/22/23 Rx oral powder packet #100 ea ascorbic acid (vitamin C) 500 mg See Rx Instructions .Route 06/25/22 05/22/23 Rx tablet (Vitamin C) .COMPLEX #84 tabs albuterol sulfate 90 mcg/actuation 2 puff inhalation Q6H PRN 10/01/22 05/22/23 Rx aerosol inhaler shortness of breath or wheezing #8.5 grams tiotropium 2.5 mcg-olodaterol 2.5 2 puff inhalation DAILY #4 grams 10/01/22 05/22/23 Rx mcg/actuation mist for inhalation (Stiolto Respimat) torsemide 20 mg tablet 40 mg (2 x 20 mg) PO TID #540 tabs 11/01/22 05/22/23 Rx potassium chloride 20 mEq 20 meq PO DAILY #90 tabs 01/25/23 05/22/23 Rx tablet,extended release miconazole nitrate 2 % topical 1 applic topical DAILY #28 grams 01/28/23 05/22/23 Rx cream (Antifungal (miconazole)) simethicone 80 mg chewable tablet 40 mg PO Q6H PRN 02/17/23 05/22/23 History (Gas Relief (simethicone)) calcium polycarbophil 625 mg 1,250 mg (2 x 625 mg) PO DAILY #90 02/22/23 05/22/23 Rx tablet (FiberCon) tabs cholecalciferol (vitamin D3) 10 20 mcg (2 x 10 mcg (400 unit)) PO 02/22/23 05/22/23 Rx mcg (400 unit) tablet DAILY #180 tabs spironolactone 25 mg tablet 25 mg PO DAILY #90 tabs 03/03/23 05/22/23 Rx Pull ups #60 ea 04/05/23 05/22/23 Rx metolazone 2.5 mg tablet 2.5 mg PO DAILY PRN Fluid overload 04/05/23 05/22/23 Rx #20 tabs ferrous sulfate 325 mg (65 mg See Rx Instructions .Route 04/21/23 05/22/23 Rx iron) tablet .COMPLEX #28 tabs fluocinonide 0.05 % topical cream 1 applic topical BID #60 grams 05/03/23 05/22/23 Rx wedge pillow #1 ea 05/03/23 05/22/23 Rx enoxaparin 100 mg/mL subcutaneous 100 mg subcut Q12H #30 mL 05/13/23 05/22/23 Rx syringe (Lovenox) pregabalin 75 mg capsule (Lyrica) 75 mg PO BID #180 caps 05/16/23 05/22/23 Rx Exam Narrative Exam Narrative: Constitutional The patient is sitting up in strtecher in the ED without acute distress and has obese body habitus HENMT: Head is atraumatic, normocephalic, no lymphadenopathy. Facial structures with normal appearance Eyes: Well aligned, intact ROM Neuro:alert and oriented to self, person, place, time and situation. No neurological focal deficit Resp: Normal respiratory pattern, speaks in full sentences, unlabored breathing, clear lung bilaterally, O2 at 2l/min via [place] Cardio: regular rhythm, S1, S2, no murmur, capillary refill<3 sec., bilateral radial positive, dorsalis pedis pulses are positive weak, slight edema to feet GI: Abdomen is large not distended, soft and non tender, bowel sounds are present : Negative Costovertebral angle tenderness,supropubic catheter in place draining yellow clear urine Back/spine/Pelvis: No back tenderness Integumentary:diffuse rash to abdomen, arms with whitish nazario scabs with pruritus / perineum with additional ulcerations No skin lesions or rash Extremities: strength 5/5 to bilateral lower and upper extremities Psych: RASS 0, congruent mood and normal affect. Results Labs 05/23/23 06:09 05/23/23 06:09 Labs: Laboratory Results - last 24 hr 05/22/23 05/22/23 10:27 10:40 WBC 9.78 RBC 4.14 L Hgb 13.5 Hct 38.6 L MCV 93 MCH 32.6 MCHC 35.0 RDW 13.7 Plt Count 170 MPV 10.8 Immature Gran % 0.5 Neutrophils % 77.2 Lymphocytes % 9.1 Monocytes % 9.9 Eosinophils % 2.9 Basophils % 0.4 Nucleated RBC % 0.0 Absolute Neutrophils 7.55 H Absolute Lymphocytes 0.89 L Absolute Monocytes 0.97 H Absolute Eosinophils 0.28 Absolute Basophils 0.04 VBG Lactate 1.4 Sodium 130 L Potassium 3.8 Chloride 90 L Carbon Dioxide 29.4 Anion Gap 10.6 BUN 104 H* Creatinine 2.3 H Est GFR (CKD-EPI 2020) 30.55 Glucose 101 Calcium 9.6 Total Bilirubin 0.4 AST 50 H ALT 68 H Alkaline Phosphatase 106 Troponin I < 50 Total Protein 7.9 Albumin 3.2 L COVID-19 Source Nasopharynx SARS-CoV-2 (PCR) Negative Influenza Type A (PCR) Negative Influenza Type B (PCR) Negative RSV (PCR) Negative Last Vital Signs Temp 37.5 C 05/22/23 09:43 Pulse 65 05/22/23 13:31 Resp 11 L 05/22/23 13:40 BP 100/41 L 05/22/23 13:31 Pulse Ox 98 05/22/23 13:40 Time Spent Time spent with Patient: >75 minutes Time was spent: preparing to see the patient(eg.review tests), obtaining and/or reviewing separately otained hiistory, ordering medications,tests, procedures, referring, communicating with other health neurocritical care physician, indepentently interpreting results, counseling the patient and care coordination
[2023-05-22 14:47] LABS: Bilirubin Negative (Negative); Blood Trace-intact (Negative); Clarity Cloudy (Clear); Glucose Negative (Negative); Ketones Negative (Negative); Leukocyte Esterase Large (Negative); Nitrite Negative (Negative); Urobilinogen 0.2 mg/dL (Up to 0.2)
[2023-05-22 15:04] LABS: Bacteria Many HPF (Negative); C & S Indicated? Yes; Casts Negative LPF (Negative); Crystals Negative HPF (Negative); Epithelial Cells Rare HPF (Negative); Mucus Negative (Negative); RBC 0-2 HPF (0-2); WBC 20-50 HPF (0-5)
[2023-05-22 15:12] LABS: Lab Add On Test DONE
[2023-05-22 15:28] LABS: ESR 39 mm/hr (0-20)
[2023-05-22 16:11] LABS: Procalcitonin 0.5 ng/mL
[2023-05-22] MEDS: Lactated Ringers 500 ML IV (18:13)
[2023-05-22] MEDS: Enoxaparin 100 MG/ML SYR SC (18:14)
[2023-05-22] MEDS: Ascorbic Acid 500 MG TAB PO (19:48)
[2023-05-22] MEDS: Normal Saline Flush 10 ML SYR IVP ×3 (19:49→21:41)
[2023-05-22] MEDS: Pregabalin 25 MG CAP 75 MG PO (19:50)
[2023-05-22] MEDS: Acetaminophen 325 MG TAB 650 MG PO (19:51)
[2023-05-22] MEDS: Lactated Ringers 1,000 ML 80 ML IV (21:42)
[2023-05-23 03:17] VITALS: BP 92/50; PULSE 66; RESP 16; TEMP 36.5; O2SAT 96
[2023-05-23] MEDS: PIPERACILLIN/TAZO 4.5 GM in Normal Saline 100 ML IVPB ×3 (04:17→21:13)
[2023-05-23] MEDS: Enoxaparin 100 MG/ML SYR SC ×2 (04:52→16:25)
[2023-05-23] MEDS: Acetaminophen 325 MG TAB 650 MG PO ×4 (04:53→21:13)
[2023-05-23] MEDS: Lactated Ringers 1,000 ML 80 ML IV (04:53)
[2023-05-23 07:16] LABS: Abs Immature Grans 0.05 10^3/uL (0.0-0.06); Absolute Basophil Count 0.03 10^3/uL (0.0-0.2); Absolute Eosinophil Count 0.33 10^3/uL (0.0-0.7); Absolute Lymphocyte Count 0.72 10^3/uL (1.2-3.4); Absolute Monocyte Count 0.67 10^3/uL (0.1-0.8); Absolute Neutrophil Count 5.33 10^3/uL (1.2-6.7); Basophils % 0.4; Eosinophils % 4.6; HCT 37.3 % (40.0-50.0); HGB 12.6 g/dL (13.5-17.5); Immature Grans % 0.7; Lymphocytes % 10.1; MCH 31.7 pg (27.0-33.0); MCHC 33.8 % (32.0-36.0); MCV 94 fL (80-95); MPV 11.3 fL (8.0-11.0); Monocytes % 9.4; Neutrophils % 74.8; Platelet Count 159 10^3/uL (130-400); RBC 3.98 10^6/uL (4.36-5.78); RDW 13.9 % (11.8-14.1); RDW-SD 47.7 fL; WBC 7.13 10^3/uL (4.4-10.8)
[2023-05-23 07:28] LABS: Anion Gap 10.5 mmol/L (3-11); BUN 74 mg/dL (7-18); CO2 28.5 mmol/L (21.0-32.0); Calcium 9.2 mg/dL (8.5-10.1); Chloride 97 mmol/L (98-107); Estimated GFR 36.13 (mL/min/1.73m2); Glucose 98 mg/dL (74-106); Magnesium 2.1 mg/dL (1.8-2.4); Potassium 3.6 mmol/L (3.5-5.1); Sodium 136 mmol/L (136-145)
[2023-05-23 07:30] VITALS: BP 90/58; PULSE 66; RESP 14; TEMP 36; O2SAT 92
[2023-05-23 08:03] LABS: Lactate 4.6 mmol/L (0.6-1.4)
[2023-05-23] MEDS: Lactated Ringers 500 ML IV (08:06)
[2023-05-23] MEDS: Tiotropium/Olodaterol 10 PUFF INHALER 2 PUFF IH (08:06)
[2023-05-23] MEDS: Polyethylene Glycol 3350 17 GM PACKET PO (08:09)
[2023-05-23] MEDS: Pregabalin 25 MG CAP 75 MG PO ×2 (08:09→21:12)
[2023-05-23] MEDS: Ascorbic Acid 500 MG TAB PO ×3 (08:10→21:13)
[2023-05-23] MEDS: Normal Saline Flush 10 ML SYR IVP ×2 (08:11→08:12)
[2023-05-23] MEDS: Cholecalciferol (Vitamin D3) 400 UNIT TAB 800 UNIT PO (08:11)
[2023-05-23] MEDS: Calcium Polycarbophil 625 MG TAB 1250 MG PO (08:11)
--- NOTE | 2023-05-23 08:12 | PCNE_ITS ---
Date of service: 05/23/23 Time of Service: 08:12 History of Present Illness History of Present Illness Chief Complaint: Low blood pressure Narrative: From H and P History of Present Illness Chief Complaint: low blood pressure, sepsis, cellulitis, NAZARIO, Narrative: This 68 years old male patient with a past medical history including history of DVT to the right lower extremity with failed apixaban and now on Lovenox at therapeutic doses, congestive heart failure, and vertigo, chronic kidney disease, B cell lymphoma without reoccurrence, presented in the ED at [facility] today via EMS for evaluation of low blood pressure. The patient reported checking his blood pressure daily with typical values around 100/50; today's blood pressure reading was 72/43. After informing is home health nurse of this finding, the patient was advised by the on-call physician to come to the emergency department. As per the ED provider note the patient has not had any increased fatigue recently, denied chest pain or shortness of breath. EMS noted to be hypoxic with a saturation in the upper 80s and he received oxygen supplementation via nasal cannula. In the emergency room the patient received a total of 1500 mL of normal saline resulting in blood pressure readings of mid 90s over 40s with maps high 50s to low 60s. The EKG in the ED did not show any sign of ischemia and the patient was in a sinus rhythm with heart rate 66. The chest abdomen and pelvis CT did not show any evidence of pulmonary embolus. Labs in the ED were unremarkable except for ANC of 7.55, sodium of 130, BUN 104, creatinine 2.3. The patient also receive an initial dose of piperacillin tazobactam 4.5 g IV. The hospitalist was called and the patient was admitted to the medical surgical floor for evaluation and management of cellulitis, sepsis, NAZARIO. When met, the patient denied dizziness but mentioned adding an episode of lightheadedness early this morning after blowing his nose while at home. The patient also denied change in vision, chills, fever, chest pain, shortness of breath, nausea, vomiting, diarrhea, abdominal pain, hematuria. Patient reported feeling constipated and admitted had bleeding from is perineal/ bottocks wounds while bearing down to have a bowel movement. Patient reported having been diagnosed with dermatitis when I ask about the diffuse scaly/patchy brown-colored rash on his arms, and the diffuse red rash on his abdomen. The patient was initially DNR/DNI as per previous close form but upon discussion the patient decided that he wanted CPR but no intubation. Patient also wants help to change his COLTS form and will have a palliative care consult to decide of his goal of care. Additional lab added showed that ESR 29, CRP 5.90, procalcitonin 0.5. The patient was noted to have clear lungs, no hypoxia, no respiratory distress, no crackles to the lung gonzales, LR 500 mL bolus was ordered to be followed by maintenance LR at 80 cc an hour. Interim Hx: Kody states that he came to the hospital on the advice of the on-call doctor when he had a low blood pressure reading. He states that he did not have any dizziness, chest pain, shortness of breath. He was found to have a UTI and was septic. He has received fluids and antibiotics and is feeling better. He has multiple sores on his skin and also on his buttocks. Kody lives alone at [facility]. He goes to [place] 3 days/week. He receives home health care. He states that he is very jah and happy with the care that he receives at home and through [place]. He generally does just fine. Consults Consult date: 05/23/23 Requesting physician: Katie Smith Assessment and Plan Assessment and plan (1) UTI (urinary tract infection): Status: Acute (2) Perineal ulcer: Status: Acute (3) Chronic kidney disease, stage 3 unspecified: Status: Chronic (4) Quality of life palliative care patient: Status: Acute Assessment and plan: Kody has probable urinary tract sepsis and multiple skin lesions. [facility] I reviewed CODE STATUS. He states at this time that he would like to be a DNR DNI. He still would like aggressive treatment but not if his heart stops or his lungs stop working. He did again designate his sister is the person that is his DPOA. He wants to take a burden of her making this very difficult decision off of her and has decided that he does not want CPR. He had been DNR in the past, but on this admission had changed it to DNI. After we discussed this thoroughly he wants to return to DNR/DNI. I did update his CODE STATUS I did relay this to Dr. Smith After hospitalization I will see Kody at either [place] or his home Review of Systems Narrative: Kody was adamant that he wants to go home as soon as possible. He is feeling very weak but feels it is secondary to all of the IVs. He was curious about his blood pressure and was happy to see it was in the 90s. [facility] All Active Problems (Updated 05/23/23 @ 08:14 by Starr Freeman MD, [place]) Quality of life palliative care patient (Acute) UTI (urinary tract infection) (Acute) Contraindication to deep vein thrombosis (DVT) prophylaxis (Acute) Pulmonary embolism (Chronic) Sepsis (Acute) Hypotensive episode (Acute) NAZARIO (acute kidney injury) (Acute) Cellulitis (Acute) Cervical spondylosis without myelopathy (Acute) Perineal ulcer (Acute) Cervical spine arthritis (Acute) Cervical radicular pain (Acute) Viral conjunctivitis of both eyes (Acute) Hypoadrenergic postural hypotension (Acute) Dyspnea (Acute) Emphysema lung (Acute) Conductive hearing loss, bilateral (Acute) Chronic serous otitis media, bilateral (Acute) Recurrent serous otitis media of left ear (Acute) Intertrigo (Acute) Sensorineural hearing loss, bilateral (Acute) Conductive hearing loss in right ear (Acute) Congestive heart disease (Chronic 04/15/22) unspeciied HF chronicity, type Target weight 211# Chronic kidney disease, stage 3 unspecified (Chronic) Chronic serous otitis media, right ear (Acute) Nasal vestibulitis (Acute) Mixed hearing loss, bilateral (Acute) Hearing deficit (Acute) Acute serous otitis media of right ear (Acute) Onychomycosis (Acute) Chronic Urinary retention (Acute) Nephrotic syndrome (Acute) Pancreatic lesion (Acute) Hypoattenuation seen on CT 05/09 Fluid retention (Acute) Thrombosis of right saphenous vein (Acute) Left femoral vein DVT (Acute) Anxiety and depression (Chronic) 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 (Acute) Stage IV, high risk, B cell lymphoma, NOS, with extra node involvement(bone, spinal cord,pleura) 09/09/21 ([facility] HEM/ONC) PET CT: No Active Lymphoma (Deauville score 1) Hypertrophic toenail (Acute) Anemia (Chronic) Cor pulmonale (chronic) (Chronic) Suprapubic catheter (Chronic) Incontinence of bowel (Acute) Acute kidney injury (Acute ~09/28/19) due to methotrexate therapy Weakness of both lower extremities (Acute) Hyperuricemia (Acute) Paroxysmal A-fib (Acute) Dehydration (Acute) Limited code status (Acute) Pleural effusion (Acute) Abdominal lymphadenopathy (Acute) DVT (deep venous thrombosis) (Chronic) Mediastinal adenopathy (Acute) Lung mass (Acute) COPD exacerbation (Acute) Respiratory distress (Acute) Overgrown toenails (Acute) DJD (degenerative joint disease) (Chronic) Depressive disorder (Chronic) Crohn's disease (Chronic) Self Reported Venous stasis ulcer of ankle limited to breakdown of skin (Acute) Venous stasis dermatitis of both lower extremities (Acute) Pulmonary HTN (Chronic) Mitral regurgitation (Chronic) Diastolic dysfunction (Chronic) Lymphedema of both lower extremities (Chronic) Ischemic ulcer of right ankle, limited to breakdown of skin (Acute) Smoking greater than 40 pack years (Chronic) cont on smoking cessation 08/2019 quit smoking; quit 2019 Venous insufficiency of both lower extremities (Chronic) as above Left varicocele (Acute 05/09/17) Microscopic hematuria (Acute 02/03/16) Osteoarthritis of hip (Acute 12/14/12) Right hydrocele (Acute 02/04/17) Osteoarthritis of hip (Acute 01/14/14) Total hip arthroplasty by Dr. Jose Nieves 01/14/14; Ceramic head; press fit. Mitral valve prolapse (Chronic) Microscopic hematuria (Acute) Medical History Right femoral vein DVT Hypotension Venous stasis ulcer of right lower leg with edema of right lower leg Cellulitis of right leg Housing problems Tobacco use disorder Alcohol dependence in remission Anxiety 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 Ulcer of right lower extremity Gastroesophageal reflux disease Osteoarthritis Hypercholesterolemia BPH (benign prostatic hyperplasia) Surgical History Total replacement of hip bilateral Tonsillectomy and adenoidectomy Repair of umbilical hernia Repair of inguinal hernia Bilateral EGD - MAC Colonoscopy - MAC Cholecystectomy (11/01/17) Extraction of cataract Family History Mother Breast cancer Hypertension Anxiety Father CHF (congestive heart failure) Maternal Aunt Diabetes Social History Smoking/Tobacco Use Status: Former Tobacco Use Quit Date: 08/23/19 Tobacco: How many years used: 50 Quit status: quit date established (06/29/2019) Smoking risk assessment performed?: Yes Alcohol Intake: former Year quit: 2007 Drug use: Never Substance use type: does not use Adopted: No Caregiver/Support person: Yes Foster care: No Household members: other Details: Self Housing: assisted living facility Number of Children: 0 number of grandchildren: 0 Communication Needs: None Education Level: vocational Do you need help understanding health information?: Often current occupation: Disabled Pets and animals: No Sexually active: No Do you think of yourself as: straight/heterosexual Current gender identity: male What is your relationship status?: How often do you talk on the phone with friends or family?: three or more times per week How often do you get together with friends or relatives?: decline to answer Do you belong to any clubs or organized social groups?: yes Panel score (0-1 are the most socially isolated patients): 2 What type of physical activity do you participate in: other Details: Stretching - ROM - arms and wheelchair-bound Duration: 15-30 minutes/day Frequency: 3-4 times per week Yakelin/Yazidism: Judaism Special yakelin needs: No Seatbelt use: always Drive intox or ride w/intox tractor driver: No (Does not apply) Do you feel safe at home: Yes Do you feel safe in your relationship?: Yes Exam Narrative Exam Narrative: Kody is a 68-year-old man who lives at the [facility] with significant support from both [place] and [facility]. I had last seen him when he was diagnosed with lymphoma which he states is now gone. He states that he feels fine and would like to go home. He admits that he is weak. He needed at least a 1 person assist to get from the side of the bed to the commode. While I was with him he had multiple BMs. His heart was regular with a systolic murmur. Lungs pretty good aeration considering how sick he was on admission. He has multiple multiple brown lesions on his body. Many of these are excoriated. He also has a lesion on his buttocks. There is dressings in place. He does have 2+ edema in his legs. Results Last Vital Signs Temp 97.7 F 05/23/23 03:17 Pulse 66 05/23/23 03:17 Resp 16 05/23/23 03:17 BP 92/50 L 05/23/23 03:17 Pulse Ox 96 05/23/23 03:17 Labs 05/23/23 06:09 05/23/23 06:09 Labs: Laboratory Results - last 24 hr 05/22/23 05/22/23 05/22/23 10:27 10:40 14:34 WBC 9.78 RBC 4.14 L Hgb 13.5 Hct 38.6 L MCV 93 MCH 32.6 MCHC 35.0 RDW 13.7 Plt Count 170 MPV 10.8 Immature Gran % 0.5 Neutrophils % 77.2 Lymphocytes % 9.1 Monocytes % 9.9 Eosinophils % 2.9 Basophils % 0.4 Nucleated RBC % 0.0 Absolute Neutrophils 7.55 H Absolute Lymphocytes 0.89 L Absolute Monocytes 0.97 H Absolute Eosinophils 0.28 Absolute Basophils 0.04 ESR 39 H VBG Lactate 1.4 Sodium 130 L Potassium 3.8 Chloride 90 L Carbon Dioxide 29.4 Anion Gap 10.6 BUN 104 H* Creatinine 2.3 H Est GFR (CKD-EPI 2020) 30.55 Glucose 101 Calcium 9.6 Magnesium Total Bilirubin 0.4 AST 50 H ALT 68 H Alkaline Phosphatase 106 Troponin I < 50 C-Reactive Protein 5.90 Total Protein 7.9 Albumin 3.2 L Procalcitonin 0.5 Urine Color Yellow Urine Clarity Cloudy Urine pH 7.0 Ur Specific [place] 1.010 Urine Protein Negative Urine Ketones Negative Urine Blood Trace-intact H Urine Nitrite Negative Urine Bilirubin Negative Urine Urobilinogen 0.2 Ur Leukocyte Esterase Large H Urine RBC 0-2 Urine WBC 20-50 H Ur Epithelial Cells Rare Urine Crystals Negative Urine Bacteria Many Urine Casts Negative Urine Mucus Negative Ur Culture Indicated? Yes Urine Glucose Negative COVID-19 Source Nasopharynx SARS-CoV-2 (PCR) Negative Influenza Type A (PCR) Negative Influenza Type B (PCR) Negative RSV (PCR) Negative Add-On Test Request 05/22/23 05/23/23 05/23/23 Unknown 06:09 07:55 WBC 7.13 RBC 3.98 L Hgb 12.6 L Hct 37.3 L MCV 94 MCH 31.7 MCHC 33.8 RDW 13.9 Plt Count 159 MPV 11.3 H Immature Gran % 0.7 Neutrophils % 74.8 Lymphocytes % 10.1 Monocytes % 9.4 Eosinophils % 4.6 Basophils % 0.4 Nucleated RBC % 0.0 Absolute Neutrophils 5.33 Absolute Lymphocytes 0.72 L Absolute Monocytes 0.67 Absolute Eosinophils 0.33 Absolute Basophils 0.03 ESR VBG Lactate 4.6 H* Sodium 136 Potassium 3.6 Chloride 97 L Carbon Dioxide 28.5 Anion Gap 10.5 BUN 74 H Creatinine 2.0 H Est GFR (CKD-EPI 2020) 36.13 Glucose 98 Calcium 9.2 Magnesium 2.1 Total Bilirubin AST ALT Alkaline Phosphatase Troponin I C-Reactive Protein Total Protein Albumin Procalcitonin Urine Color Urine Clarity Urine pH Ur Specific [place] Urine Protein Urine Ketones Urine Blood Urine Nitrite Urine Bilirubin Urine Urobilinogen Ur Leukocyte Esterase Urine RBC Urine WBC Ur Epithelial Cells Urine Crystals Urine Bacteria Urine Casts Urine Mucus Ur Culture Indicated? Urine Glucose COVID-19 Source SARS-CoV-2 (PCR) Influenza Type A (PCR) Influenza Type B (PCR) RSV (PCR) Add-On Test Request DONE
[2023-05-23 08:16] LABS: Lab Add On Test DONE
--- NOTE | 2023-05-23 08:25 | INITIAL_ITS ---
Date of service: 05/23/23 Time of Service: 08:25 Care Management Initial Assmt Initial Assessment REASON FOR HOSPITALIZATION:: sepsis PREVIOUS FUNCTIONAL STATUS/SOCIAL/FAMILY SUPPORTS:: Isra lives alone in an apartment at the [facility]. He does not have any biological children but is close to two adopted children, Mary and Tay, that he has known since . He communicates with Asley regularly. Isra attends Adult day at [facility] 3 days a week. [facility]. Isra has [facility] and receives twice weekly visits from nursing and twice daily visits from LNAs. His community services coordinator is Breann Major and his sister Mariluz is his DPOA. Isra uses [facility] for all transportation. CURRENT FUNCTIONAL STATUS:: Isra was sitting up in bed when CM met with him. He was pleasant in interaction and engaged well with CM. He explained that he was diagnosed with Non-Hodgkin's Lymphoma in 2019 and has been essentially wheelchair bound since. He was treated with chemotherapy and tradition at the time and spent a total of 10 months between [facility] and a rehab facility in [place], [place]. He stated that he did not like the rehab faculty at all. Isra has developed decubitus ulcers Isra gets meals at the [facility] twice a week and at [facility] 3 times a week. He informed Cm that he is essentially chair bound however he can stand and pivot independently to get in and out of his bed and chair. ADVANCE DIRECTIVES:: On file. Sister Mariluz [facility] Has patient been provided with info about the portal/API?: Yes Did the patient sign up for the portal?: Yes CODE STATUS:: DNR/DNI INSURANCE COVERAGE / FINANCIAL ISSUES:: Medicare Medicaid [facility] CURRENT HOME/COMMUNITY SERVICES/EQUIPMENT:: [facility] 3 days/week [facility] Highest needs - Breann Major case preparer and linersalon manager support and LNAs 7 days/week, twice a day PRIMARY CARE PHYSICIAN:: Renan Garcia POTENTIAL DISCHARGE NEEDS:: follow up with community providers and plan of care PATIENT/FAMILY EDUCATION NEEDS:: Review discharge instructions, activity, follow up plan, limitations, discuss Ask Me Three TRANSPORTATION:: RCT PLAN:: Anticipate Isra will return home when medically cleared with a resumption of his community supports through [facility]. He will follow up with his PCP and plan of care and transport via RCT coordinated by CM. CM will follow and continue to assess for discharge needs. PFSH All Active Problems (Updated 05/23/23 @ 12:42 by Harini Sauceda APRN) Severe sepsis (Acute) Septic shock (Acute) Quality of life palliative care patient (Acute) UTI (urinary tract infection) (Acute) Contraindication to deep vein thrombosis (DVT) prophylaxis (Acute) Pulmonary embolism (Chronic) Sepsis (Acute) Hypotensive episode (Acute) NAZARIO (acute kidney injury) (Acute) Cellulitis (Acute) Cervical spondylosis without myelopathy (Acute) Perineal ulcer (Acute) Cervical spine arthritis (Acute) Cervical radicular pain (Acute) Viral conjunctivitis of both eyes (Acute) Hypoadrenergic postural hypotension (Acute) Dyspnea (Acute) Emphysema lung (Acute) Conductive hearing loss, bilateral (Acute) Chronic serous otitis media, bilateral (Acute) Recurrent serous otitis media of left ear (Acute) Intertrigo (Acute) Sensorineural hearing loss, bilateral (Acute) Conductive hearing loss in right ear (Acute) Congestive heart disease (Chronic 04/15/22) unspeciied HF chronicity, type Target weight 211# Chronic kidney disease, stage 3 unspecified (Chronic) Chronic serous otitis media, right ear (Acute) Nasal vestibulitis (Acute) Mixed hearing loss, bilateral (Acute) Hearing deficit (Acute) Acute serous otitis media of right ear (Acute) Onychomycosis (Acute) Chronic Urinary retention (Acute) Nephrotic syndrome (Acute) Pancreatic lesion (Acute) Hypoattenuation seen on CT 05/09 Fluid retention (Acute) Thrombosis of right saphenous vein (Acute) Left femoral vein DVT (Acute) Anxiety and depression (Chronic) 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 (Acute) Stage IV, high risk, B cell lymphoma, NOS, with extra node involvement(bone, spinal cord,pleura) 09/09/21 ([facility] HEM/ONC) PET CT: No Active Lymphoma (Deauville score 1) Hypertrophic toenail (Acute) Anemia (Chronic) Cor pulmonale (chronic) (Chronic) Suprapubic catheter (Chronic) Incontinence of bowel (Acute) Acute kidney injury (Acute ~09/28/19) due to methotrexate therapy Weakness of both lower extremities (Acute) Hyperuricemia (Acute) Paroxysmal A-fib (Acute) Dehydration (Acute) Limited code status (Acute) Pleural effusion (Acute) Abdominal lymphadenopathy (Acute) DVT (deep venous thrombosis) (Chronic) Mediastinal adenopathy (Acute) Lung mass (Acute) COPD exacerbation (Acute) Respiratory distress (Acute) Overgrown toenails (Acute) DJD (degenerative joint disease) (Chronic) Depressive disorder (Chronic) Crohn's disease (Chronic) Self Reported Venous stasis ulcer of ankle limited to breakdown of skin (Acute) Venous stasis dermatitis of both lower extremities (Acute) Pulmonary HTN (Chronic) Mitral regurgitation (Chronic) Diastolic dysfunction (Chronic) Lymphedema of both lower extremities (Chronic) Ischemic ulcer of right ankle, limited to breakdown of skin (Acute) Smoking greater than 40 pack years (Chronic) cont on smoking cessation 08/2019 quit smoking; quit 2019 Venous insufficiency of both lower extremities (Chronic) as above Left varicocele (Acute 05/09/17) Microscopic hematuria (Acute 02/03/16) Osteoarthritis of hip (Acute 12/14/12) Right hydrocele (Acute 02/04/17) Osteoarthritis of hip (Acute 01/14/14) Total hip arthroplasty by Dr. Jose Nieves 01/14/14; Ceramic head; press fit. Mitral valve prolapse (Chronic) Microscopic hematuria (Acute) Medical History Right femoral vein DVT Hypotension Venous stasis ulcer of right lower leg with edema of right lower leg Cellulitis of right leg Housing problems Tobacco use disorder Alcohol dependence in remission Anxiety 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 Ulcer of right lower extremity Gastroesophageal reflux disease Osteoarthritis Hypercholesterolemia BPH (benign prostatic hyperplasia) Surgical History Total replacement of hip bilateral Tonsillectomy and adenoidectomy Repair of umbilical hernia Repair of inguinal hernia Bilateral EGD - MAC Colonoscopy - MAC Cholecystectomy (11/01/17) Extraction of cataract Family History Mother Breast cancer Hypertension Anxiety Father CHF (congestive heart failure) Maternal Aunt Diabetes Social History Smoking/Tobacco Use Status: Former Tobacco Use Quit Date: 08/23/19 Tobacco: How many years used: 50 Quit status: quit date established (06/29/2019) Smoking risk assessment performed?: Yes Alcohol Intake: former Year quit: 2007 Drug use: Never Substance use type: does not use Adopted: No Caregiver/Support person: Yes Foster care: No Household members: other Details: Self Housing: assisted living facility Number of Children: 0 number of grandchildren: 0 Communication Needs: None Education Level: vocational Do you need help understanding health information?: Often current occupation: Disabled Pets and animals: No Sexually active: No Do you think of yourself as: straight/heterosexual Current gender identity: male What is your relationship status?: How often do you talk on the phone with friends or family?: three or more times per week How often do you get together with friends or relatives?: decline to answer Do you belong to any clubs or organized social groups?: yes Panel score (0-1 are the most socially isolated patients): 2 What type of physical activity do you participate in: other Details: Stretching - ROM - arms and wheelchair-bound Duration: 15-30 minutes/day Frequency: 3-4 times per week Yakelin/Latter Day: Church Special yakelin needs: No Seatbelt use: always Drive intox or ride w/intox hole digger truck driver: No (Does not apply) Do you feel safe at home: Yes Do you feel safe in your relationship?: Yes SDOH(Care Management) Screening Will the Patient Participate in the Screening?: Yes Do you worry about having a steady place to live?: no Problems where you live: no known problems In the past 12 months, have you had to go without electric, gas, oil or water in your home?: no Have you or anyone in your house had to go without enough food to eat?: no Has lack of transportation kept you from medical appointments or from doing things needed for daily living?: no Has anyone in your support network made you feel unsafe for any reason?: no
--- NOTE | 2023-05-23 08:28 | PT.INIE ---
PT Notes Visit Reasons: Sepsis,Hypotension,NAZARIO,Elevated BUN Physical Therapy Inpatient Initial Evaluation Date: 05/23/2023 Referring Doctor: Komal Schuler APRN PT Orders: PT CONSULT: Eval/Treat Precautions: Fall. On contact precautions. Activity as tolerated. Patient Profile/Admitting Diagnosis: Isra is a 68-year-old male with past medical history significant for chronic venous insufficiency, cor pulmonale, and lymphoma who presented to the ED on 05/22/2023 with chief complaints of low blood pressure and generalized weakness. Patient is diagnosed with sepsis, cellulitis, perinela ulcer , UTI, NAZARIO, and emphsema of lung. PMHX: All Active Problems (Updated 05/22/23 @ 18:05 by Harini Sauceda APRN) UTI (urinary tract infection) (Acute) Contraindication to deep vein thrombosis (DVT) prophylaxis (Acute) Pulmonary embolism (Chronic) Sepsis (Acute) Hypotensive episode (Acute) NAZARIO (acute kidney injury) (Acute) Cellulitis (Acute) Cervical spondylosis without myelopathy (Acute) Perineal ulcer (Acute) Cervical spine arthritis (Acute) Cervical radicular pain (Acute) Viral conjunctivitis of both eyes (Acute) Hypoadrenergic postural hypotension (Acute) Dyspnea (Acute) Emphysema lung (Acute) Conductive hearing loss, bilateral (Acute) Chronic serous otitis media, bilateral (Acute) Recurrent serous otitis media of left ear (Acute) Intertrigo (Acute) Sensorineural hearing loss, bilateral (Acute) Conductive hearing loss in right ear (Acute) Congestive heart disease (Chronic 04/15/22) unspeciied HF chronicity, type Target weight 211#Chronic kidney disease, stage 3 unspecified (Chronic) Chronic serous otitis media, right ear (Acute) Nasal vestibulitis (Acute) Mixed hearing loss, bilateral (Acute) Hearing deficit (Acute) Acute serous otitis media of right ear (Acute) Onychomycosis (Acute) ChronicUrinary retention (Acute) Nephrotic syndrome (Acute) Pancreatic lesion (Acute) Hypoattenuation seen on CT 05/09Fluid retention (Acute) Thrombosis of right saphenous vein (Acute) Left femoral vein DVT (Acute) Anxiety and depression (Chronic) 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 (Acute) Stage IV, high risk, B cell lymphoma, NOS, with extra node involvement(bone, spinal cord,pleura) 09/09/21 ([facility]) PET CT: No Active Lymphoma (Deauville score 1) Hypertrophic toenail (Acute) Anemia (Chronic) Cor pulmonale (chronic) (Chronic) Suprapubic catheter (Chronic) Incontinence of bowel (Acute) Acute kidney injury (Acute ~09/28/19) due to methotrexate therapy Weakness of both lower extremities (Acute) Hyperuricemia (Acute) Paroxysmal A-fib (Acute) Dehydration (Acute) Limited code status (Acute) Pleural effusion (Acute) Abdominal lymphadenopathy (Acute) DVT (deep venous thrombosis) (Chronic) Mediastinal adenopathy (Acute) Lung mass (Acute) COPD exacerbation (Acute) Respiratory distress (Acute) Overgrown toenails (Acute) DJD (degenerative joint disease) (Chronic) Depressive disorder (Chronic) Crohn's disease (Chronic) Self Reported Venous stasis ulcer of ankle limited to breakdown of skin (Acute) Venous stasis dermatitis of both lower extremities (Acute) Pulmonary HTN (Chronic) Mitral regurgitation (Chronic) Diastolic dysfunction (Chronic) Lymphedema of both lower extremities (Chronic) Ischemic ulcer of right ankle, limited to breakdown of skin (Acute) Smoking greater than 40 pack years (Chronic) cont on smoking cessation 08/2019 quit smoking; quit 2019 Venous insufficiency of both lower extremities (Chronic) as aboveLeft varicocele (Acute 05/09/17) Microscopic hematuria (Acute 02/03/16) Osteoarthritis of hip (Acute 12/14/12) Right hydrocele (Acute 02/04/17) Osteoarthritis of hip (Acute 01/14/14) Total hip arthroplasty by Dr. Jose Nieves 01/14/14; Ceramic head; press fit. Mitral valve prolapse (Chronic) Microscopic hematuria (Acute) Medical History Right femoral vein DVT Hypotension Venous stasis ulcer of right lower leg with edema of right lower leg Cellulitis of right leg Housing problems Tobacco use disorder Alcohol dependence in remission Anxiety 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 Ulcer of right lower extremity Gastroesophageal reflux disease Osteoarthritis Hypercholesterolemia BPH (benign prostatic hyperplasia) Surgical History Total replacement of hip bilateral Tonsillectomy and adenoidectomy Repair of umbilical hernia Repair of inguinal hernia BilateralEGD - MAC Colonoscopy - MAC Cholecystectomy (11/01/17) Extraction of cataract Social History/Home Situation: [facility] with a ramp to enter, rides the elevator to the second floor of the building where he lives. Receives home health assistance for 4 hours in the morning and 2 hours in the afternoon 7 days a week. Modified independent with all transfers using FWW at baseline. Uses motorized wheelchair for all mobility tasks. Goes to [place] 3x/week (Mondays/Wednesdays/Fridays). Does his grocery shopping independently to the grocery store from across where he lives during the non-winter months. Equipment Owned/DME: Electric wheelchair, regular wheelchair, front-wheeled walker, bedside commode, therapeutic shoes, hospital bed without rails Subjective: Agreeable PT consult. Denies headache, chest pain, and dizziness throughout session. Has not fallen in the past 12 months. Prefers to get out from the R side of the bed. Objective: General Observation: Sitting at edge of bed. Trunk, BUE, B LE all red and with multiple scabbed wounds. Suprapubic catheter in place. Compression leggings to B legs. Mental Status: Alert and oriented x4 Pain: 2-3/10 pain in the right LE Vital Signs: BP 98/49 mmHg, HR 67 bpm, SaO2 96% on RA ROM: Right Upper Extremity: Shoulder Flexion allows only up to 120 degrees. Shoulder abduction allows only up to 100 degrees. Elbow flexion WFL. Wrist flexion WFL. Opening and closing of hand WFL. Left Upper Extremity: Shoulder Flexion allows only up to 120 degrees. Shoulder abduction allows only up to 100 degrees. Elbow flexion WFL. Wrist flexion WFL. Opening and closing of hand WFL. Right Lower Extremity: Hip flexion unable to bend at the hip any further while seated at edge of bed. Hip abduction WFL. Knee flexion allows up to 90 degrees. Knee extension -30 degrees. Ankle dorsiflexion to neutral only. Ankle plantarflexion WFL. Left Lower Extremity: Hip flexion unable to bend at the hip any further while seated at edge of bed. Hip abduction WFL. Knee flexion allows up to 90 degrees. Knee extension -30 degrees. Ankle dorsiflexion to neutral only. Ankle plantarflexion WFL. Strength: Right Upper Extremity: Shoulder flexors 3-/5. Shoulder abductors 3-/5. Elbow flexors 4/5. Elbow extensors 4/5. Medical Records Specialist strong. Left Upper Extremity: Shoulder flexors 3-/5. Shoulder abductors 3-/5. Elbow flexors 4/5. Elbow extensors 4/5. Medical Records Specialist strong. Right Lower Extremity: Hip flexors 3-/5. Hip abductors 4-/5. Knee flexors 3-/5. Knee extensors 3-/5. Ankle dorsiflexors 2-/5. Ankle plantarflexors 3/5. Left Lower Extremity: Hip flexors 3-/5. Hip abductors 4-/5. Knee flexors 3-/5. Knee extensors 3-/5. Ankle dorsiflexors 2-/5. Ankle plantarflexors 3/5. Sensation: Intact as to pain and pressure on bilateral lower extremities. Bed Mobility/Transfers: Minimal cueing provided for use of B hands as needed for support, movement sequence, AD management, and posture to reduce fall risk and minimize pain report Sit to stand minimal assist Stand to sit contact guard assist Bed to chair minimal assist Chair to bed minimal assist Gait: 6 small steps from edg of bed to reclining wheelchair using FWW and minimal assist of PT. Shaky. Minimal pain in B knees with weight bearing. No LOB. Minimal SOB that resolved with rest. Moderate verbal cueing for movement sequence and AD management given. Balance: Static Sitting: Normal Dynamic Sitting: Normal Static Standing: Fair Dynamic Standing: Fair Special Tests: Mobility Limitations Standardized Measure [facility] AM-PAC 6 clicks Basic Mobility Inpatient Short Form: Raw Score: 18 CMS Score: 47% deficit Informed Consent/Education: Patient instructed in purpose of PT consult and plan of care. Assessment: Isra demonstrates functional mobility decline, generalized weakness, impairment in balance, decreased activity tolerance, and increased risk for falls. Kody will benefit from PT services to address impairment/functional limitations listed below. Without skilled services patient is at risk for further functional mobility decline, increased falls, and inability to return home. Patient presents with clinical signs and symptoms consistent with current/admitting diagnoses that have resulted to mobility limitations, gait instability, generalized weakness, and impairment of motor control as demonstrated by the following impairment level findings: 1. Decreased strength to B UE/LE major muscle groups 2. Impaired sitting/standing balance 3. Impaired activity tolerance Impairments are contributing to the following functional limitations: 1. Dependent bed mobility skills 2. Increased dependence with transfers 3. Inability to safely ambulate without assistive device and physical assistance 4. Increase completion time for mobility ADL performance 5. Increased fall risk 6. Inability to negotiate steps alone safely Patient is assessed as a 38572 moderate complexity based on the following: History: 65-year-old male with impairment level findings, functional limitations, and past medical history as indicated above Examination: Demonstrable impairment in strength, balance, and mobility level with underlying impairments and functional limitations as documented above Presentation:Evolving Decision Makin moderate complexity Goals: Goals X1 week 1. Supine-Sit independent 2. Sit-Supine independent 3. Sit-Stand independent 4. Stand-Sit independent 5. Bed-Chair independent 6. Chair-Bed independent 7. Independent gait on level surface with use of front wheeled walker for at least 15 feet without report of pain nor dyspnea 8. Good static and dynamic standing balance/tolerance Plan of Care/Treatment Plan: 1-2x/day, 7 days/week x 1 week. Plan of care has been reviewed with the DIRECTOR OF CAREER SERVICES providing the service under Physical Therapy direction. Initiate Physical Therapy intervention for strengthening, bed mobility, transfers, gait, stairs, balance training, use of assistive device. DISCHARGE RECOMMENDATIONS: Patient will benefit from home health PT services in order to progress mobility level using least restrictive assistive ambulatory device, assess home safety, identify additional equipment needs, and establish a functional maintenance program that will increase ability of patient to remain at home. No equipment needs at this time TREATMENT CODE/TIME: 23080 x 20 minutes, 08759 x 13 minutes (8:28-9:01 AM). Thank you for the opportunity to participate in the care of this patient. Karen Harvey PT, DPT, CLT [facility] [place], [place]
[2023-05-23 08:30] VITALS: BP 98/49; PULSE 67; O2SAT 96
[2023-05-23 08:33] LABS: Creatine Kinase 148 U/L (39-308)
[2023-05-23] MEDS: Ferrous Sulfate 325 MG TAB PO (09:30)
[2023-05-23] MEDS: Lactated Ringers 1,000 ML 150 ML IV ×3 (09:32→17:04)
[2023-05-23 11:12] LABS: Lactate 1.7 mmol/L (0.6-1.4)
--- NOTE | 2023-05-23 11:35 | W.PM.PROGNOT ---
Date of Service Date of service: 05/23/23 Time of Service: 09:30 Assessment and Plan Assessment and plan (1) Severe sepsis: Status: Acute Assessment and plan: On admission the patient had a history of lymphoma and immunocompromise most likely was not able to have leukocytosis, fever but BP was 72/43 on report and the patient responded to fluid resuscitation. The Cr was also 2.3. The patient had signs of end organ damage qualifying him for severe sepsis Most likely from UTI with positve leukesterase and nitrite from urine sample from the suprapubic associated with clinical picture of increased lactate, hypotension, procalcitonin: 0.5 on admit. This morning with a lactic of 4.8 d/t hypoperfusion and reported hypotension corrected by fluid resuscitation, the patient had a brief episode of resolved septic shock but the patient remains septic. Will continue Zosyn 4.5 IVPB Q 8 Awaiting blood cultures results Wound culture not showing any bacteria today Monitoring for hypotension, fever, leukocytosis, Trending inflammatory markers CRP and procalcitonin CBC in AM (2) Sepsis: Status: Acute Qualifiers: Sepsis acute organ dysfunction status: with acute organ dysfunction Severe sepsis acute organ dysfunction type: acute renal failure (3) Cellulitis: Status: Acute Assessment and plan: As above and wound consult (4) Perineal ulcer: Status: Acute Assessment and plan: Wound consult (5) UTI (urinary tract infection): Status: Acute Assessment and plan: UA positive with additional point mentioned under sepsis On Zosyn Culture pending Changing suprapubic cath Urology consult pending (6) NAZARIO (acute kidney injury): Status: Acute Assessment and plan: Acute on chronic LR at 150 cc/hr holding diuretics and will reevalute Maintian avoidance of nephrotoxic drugs Cr 2.0 from 2.3, baseline 1.3 to 1.7 BMP in AM (7) Emphysema lung: Status: Acute Assessment and plan: On ome dose Stiolto and PRN nebs (8) DVT (deep venous thrombosis): Status: Chronic Assessment and plan: Continue therapeutic dose of lovenox failed Apixaban at home Will monitor for bleeding Qualifiers: Affected thrombotic vein of extremity: unspecified vein of extremity Chronicity: chronic DVT location: lower extremity Laterality: bilateral Qualified Code(s): I82.503 - Chronic embolism and thrombosis of unspecified deep veins of lower extremity, bilateral (9) Contraindication to deep vein thrombosis (DVT) prophylaxis: Status: Acute Assessment and plan: As above (10) Discharge planning issues: Status: Inactive Assessment and plan: Care management to f/u Palliative care consult:completed by Dr. Freeman, please read notes. -Patient reversed his status back to DNR/DNI discussed with Dr. Smith Subjective Subjective Patient reports: no new complaints, tolerating liquids well, tolerating a regular diet, voiding w/o difficulty (suprapubic ), flatus and bowel movement; denies diarrhea, blood in stool, nausea, vomiting, shortness of breath or fever Exam Narrative Exam Narrative: Constitutional The patient is sitting without acute distress and has obese body habitus HENMT: no lymphadenopathy. Facial structures with normal appearance Neuro:alert and oriented X4 w/o focal neurological deficit Resp: Normal respiratory pattern, speaks in full sentences, unlabored breathing, clear lung bilaterally Cardio: regular rhythm, S1, S2, no murmur, capillary refill<3 sec., bilateral radial positive, dorsalis pedis pulses are positive weak; generalized non-pitting edema + to distal extr. GI: Abdomen is large not distended, soft and non tender, bowel sounds are present : Negative Costovertebral angle tenderness,suprapubic catheter to be changed, patent Back/spine/Pelvis: No back tenderness Integumentary:diffuse rash to abdomen, arms with whitish nazario scabs with pruritus / perineum with additional ulcerations ranging from stage II to unstageable wound consult pending Psych: RASS 0, congruent mood and normal affect. Objective Last Vital Signs Temp 36.0 C L 05/23/23 07:30 Pulse 67 05/23/23 08:30 Resp 14 05/23/23 07:30 BP 98/49 L 05/23/23 08:30 Pulse Ox 96 05/23/23 08:30 Laboratory Results - last 24 hr 05/22/23 05/22/23 05/22/23 10:27 10:40 14:34 WBC RBC Hgb Hct MCV MCH MCHC RDW Plt Count MPV Immature Gran % Neutrophils % Lymphocytes % Monocytes % Eosinophils % Basophils % Nucleated RBC % Absolute Neutrophils Absolute Lymphocytes Absolute Monocytes Absolute Eosinophils Absolute Basophils ESR 39 H VBG Lactate Sodium Potassium Chloride Carbon Dioxide Anion Gap BUN Creatinine Est GFR (CKD-EPI 2020) Glucose Calcium Magnesium Creatine Kinase C-Reactive Protein 5.90 Procalcitonin 0.5 Urine Color Yellow Urine Clarity Cloudy Urine pH 7.0 Ur Specific [place] 1.010 Urine Protein Negative Urine Ketones Negative Urine Blood Trace-intact H Urine Nitrite Negative Urine Bilirubin Negative Urine Urobilinogen 0.2 Ur Leukocyte Esterase Large H Urine RBC 0-2 Urine WBC 20-50 H Ur Epithelial Cells Rare Urine Crystals Negative Urine Bacteria Many Urine Casts Negative Urine Mucus Negative Ur Culture Indicated? Yes Urine Glucose Negative COVID-19 Source Nasopharynx SARS-CoV-2 (PCR) Negative Influenza Type A (PCR) Negative Influenza Type B (PCR) Negative RSV (PCR) Negative Add-On Test Request 05/22/23 05/23/23 05/23/23 Unknown 06:09 07:55 WBC 7.13 RBC 3.98 L Hgb 12.6 L Hct 37.3 L MCV 94 MCH 31.7 MCHC 33.8 RDW 13.9 Plt Count 159 MPV 11.3 H Immature Gran % 0.7 Neutrophils % 74.8 Lymphocytes % 10.1 Monocytes % 9.4 Eosinophils % 4.6 Basophils % 0.4 Nucleated RBC % 0.0 Absolute Neutrophils 5.33 Absolute Lymphocytes 0.72 L Absolute Monocytes 0.67 Absolute Eosinophils 0.33 Absolute Basophils 0.03 ESR VBG Lactate 4.6 H* Sodium 136 Potassium 3.6 Chloride 97 L Carbon Dioxide 28.5 Anion Gap 10.5 BUN 74 H Creatinine 2.0 H Est GFR (CKD-EPI 2020) 36.13 Glucose 98 Calcium 9.2 Magnesium 2.1 Creatine Kinase 148 C-Reactive Protein Procalcitonin Urine Color Urine Clarity Urine pH Ur Specific [place] Urine Protein Urine Ketones Urine Blood Urine Nitrite Urine Bilirubin Urine Urobilinogen Ur Leukocyte Esterase Urine RBC Urine WBC Ur Epithelial Cells Urine Crystals Urine Bacteria Urine Casts Urine Mucus Ur Culture Indicated? Urine Glucose COVID-19 Source SARS-CoV-2 (PCR) Influenza Type A (PCR) Influenza Type B (PCR) RSV (PCR) Add-On Test Request DONE DONE 05/23/23 11:02 WBC RBC Hgb Hct MCV MCH MCHC RDW Plt Count MPV Immature Gran % Neutrophils % Lymphocytes % Monocytes % Eosinophils % Basophils % Nucleated RBC % Absolute Neutrophils Absolute Lymphocytes Absolute Monocytes Absolute Eosinophils Absolute Basophils ESR VBG Lactate 1.7 H Sodium Potassium Chloride Carbon Dioxide Anion Gap BUN Creatinine Est GFR (CKD-EPI 2020) Glucose Calcium Magnesium Creatine Kinase C-Reactive Protein Procalcitonin Urine Color Urine Clarity Urine pH Ur Specific [place] Urine Protein Urine Ketones Urine Blood Urine Nitrite Urine Bilirubin Urine Urobilinogen Ur Leukocyte Esterase Urine RBC Urine WBC Ur Epithelial Cells Urine Crystals Urine Bacteria Urine Casts Urine Mucus Ur Culture Indicated? Urine Glucose COVID-19 Source SARS-CoV-2 (PCR) Influenza Type A (PCR) Influenza Type B (PCR) RSV (PCR) Add-On Test Request Time Spent with Patient Time Spent with Patient: >50 minutes Time was spent: preparing to see the patient(eg.review tests), obtaining and/or reviewing separately otained hiistory, ordering medications,tests, procedures, referring, communicating with other health congregational care pastor, indepentently interpreting results, counseling the patient and care coordination
--- NOTE | 2023-05-23 13:28 | PT.INTREAT ---
PT Notes Visit Reasons: Sepsis,Hypotension,NAZARIO,Elevated BUN Physical Therapy Inpatient Treatment Note Date: 05/23/2023 Referring Doctor: Komal Schuler APRN PT Orders: PT CONSULT: Eval/Treat Precautions: Fall. On contact precautions. Activity as tolerated. Subjective: Okay with trying out to get in and out of the left side of bed which he did okay. Attempted to defecate but could not. Objective: General Observation: Sitting on bedside commode. Trunk, BUE, B LE all red and with multiple scabbed wounds. Suprapubic catheter in place. Compression leggings to B legs. Mental Status: Alert and oriented x4 Pain: 2-3/10 pain in the right LE Vital Signs: SaO2 93% on RA, HR 76 bpm Bed Mobility/Transfers: Minimal cueing provided for use of B hands as needed for support, movement sequence, AD management, and posture to reduce fall risk and minimize pain report Sit to stand from bedside commode minimal assist with FWW Stand to sit onto edge of bed contact guard assist with FWW Chair to bed minimal assist with FWW Gait: 6 small steps from bedside commode to edge of bed using FWW and minimal assist of PT. Shaky. Minimal pain in B knees with weight bearing. No LOB. Minimal SOB that resolved with rest. Moderate verbal cueing for movement sequence and AD management given. SaO2 93% on RA, HR 76 bpm Balance: Static Sitting: Normal Dynamic Sitting: Normal Static Standing: Fair Dynamic Standing: Fair THERA EX: Facilitated safe and correct performance of edge of bed exercises as follows: Seated marches x 10 LAQs x 10 Chest expansion exercises with DBE alongside shoulder flexion/ext x 5 Trunk flexion and exrension x 10 Adductor squeeze using folded pillow x 10 Chest expansion exercises with DBE alongside shoulder hor abd/add x 5 Hip abduction x 10 Ankle pumps x 10 Trunk rotation to L and R x10 Assessment: Isra demonstrates functional mobility decline, generalized weakness, impairment in balance, decreased activity tolerance, and increased risk for falls. Kody will benefit from PT services to address impairment/functional limitations listed below. Without skilled services patient is at risk for further functional mobility decline, increased falls, and inability to return home. Plan of Care/Treatment Plan: 1-2x/day, 7 days/week x 1 week. Plan of care has been reviewed with the SLEEP TECHNICIAN providing the service under Physical Therapy direction. Initiate Physical Therapy intervention for strengthening, bed mobility, transfers, gait, stairs, balance training, use of assistive device. DISCHARGE RECOMMENDATIONS: Patient will benefit from home health PT services in order to progress mobility level using least restrictive assistive ambulatory device, assess home safety, identify additional equipment needs, and establish a functional maintenance program that will increase ability of patient to remain at home. No equipment needs at this time TREATMENT CODE/TIME: 80330 x 15 minutes for 1 unit, 93565 x 18 minutes for 1 unit to (13:28-14:01).
--- NOTE | 2023-05-23 15:35 | NUR.NOTE ---
Nursing Note: This chief underwriter spoke via video chat with Isra's younger sister Mariluz who is a RN. Mariluz has repeatedly educated Isra on the importance of frequent repositioning and bathing. Isra reports usually bathing once per week using a bench seat shower chair and a hand held wand for washing. At home, Isra also reports wearing briefs that he does not change often. This chief underwriter discussed with Isra and Mariluz frequent repositioning, more frequent bathing and not wearing briefs at night. Isra has an aid that comes in daily to help with needs.
--- NOTE | 2023-05-23 15:55 | UCONE_ITS ---
Date of service: 05/23/23 Time of Service: 16:30 Assessment and Plan Assessment and plan (1) Severe sepsis: Status: Acute Assessment and plan: As with all patients who have indwelling catheters, this gentleman is certainly at risk for urosepsis. Most of these patients have bacteruria on their urine samples and we do not recommend treating the bacteruria unless the patient has symptoms. With his sepsis, broad spectrum antibiotics until his cultures are available is quite appropriate. If by any chance his blood cultures are different than his urine culture, we may be able to ignore his bacteruria. If his urine and blood cultures are positive for the same organism and the organism is a urease splitter like Proteus, we need to be mindful that he may have a bladder stone that could contribute to recurrent infections/sepsis. If a bladder stone is suspected, once the bacteremia and bacteriuria has been treated, we can consider running a cystoscope down through the suprapubic tract to evaluate for bladder stones. If his stone is present, we would then treat by fragmenting the stone with our holmium laser. History of Present Illness History of Present Illness Chief Complaint: Sepsis Narrative: This is a 68-year-old woman who has a history of urinary retention. Initially, he had an indwelling urethral catheter, but he developed urethral erosion. Since then, he is managed with an indwelling suprapubic tube. This tube is changed by home health providers monthly. He has a known perineal wound and is receiving wound care from the home health providers as well. He comes in now with signs and symptoms of sepsis. Blood, urine and wound cultures have all been obtained and are pending. He is now on broad-spectrum antibiotics and is responding clinically. Review of Systems Narrative: No chills Decreased hearing acuity. No vision change or dysphasia No diabetes or thyroid dysfunction Short of breath with activity. No hemoptysis No chest pain at rest No nausea, vomiting, hepatitis, ulcers, jaundice No seizures, strokes B Cell Lymphoma. Hx DVT PFSH All Active Problems (Updated 05/23/23 @ 12:42 by Harini Sauceda APRN) Severe sepsis (Acute) Septic shock (Acute) Quality of life palliative care patient (Acute) UTI (urinary tract infection) (Acute) Contraindication to deep vein thrombosis (DVT) prophylaxis (Acute) Pulmonary embolism (Chronic) Sepsis (Acute) Hypotensive episode (Acute) NAZARIO (acute kidney injury) (Acute) Cellulitis (Acute) Cervical spondylosis without myelopathy (Acute) Perineal ulcer (Acute) Cervical spine arthritis (Acute) Cervical radicular pain (Acute) Viral conjunctivitis of both eyes (Acute) Hypoadrenergic postural hypotension (Acute) Dyspnea (Acute) Emphysema lung (Acute) Conductive hearing loss, bilateral (Acute) Chronic serous otitis media, bilateral (Acute) Recurrent serous otitis media of left ear (Acute) Intertrigo (Acute) Sensorineural hearing loss, bilateral (Acute) Conductive hearing loss in right ear (Acute) Congestive heart disease (Chronic 04/15/22) unspeciied HF chronicity, type Target weight 211# Chronic kidney disease, stage 3 unspecified (Chronic) Chronic serous otitis media, right ear (Acute) Nasal vestibulitis (Acute) Mixed hearing loss, bilateral (Acute) Hearing deficit (Acute) Acute serous otitis media of right ear (Acute) Onychomycosis (Acute) Chronic Urinary retention (Acute) Nephrotic syndrome (Acute) Pancreatic lesion (Acute) Hypoattenuation seen on CT 05/09 Fluid retention (Acute) Thrombosis of right saphenous vein (Acute) Left femoral vein DVT (Acute) Anxiety and depression (Chronic) 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 (Acute) Stage IV, high risk, B cell lymphoma, NOS, with extra node involvement(bone, spinal cord,pleura) 09/09/21 ([facility] [place] HEM/ONC) PET CT: No Active Lymphoma (Deauville score 1) Hypertrophic toenail (Acute) Anemia (Chronic) Cor pulmonale (chronic) (Chronic) Suprapubic catheter (Chronic) Incontinence of bowel (Acute) Acute kidney injury (Acute ~09/28/19) due to methotrexate therapy Weakness of both lower extremities (Acute) Hyperuricemia (Acute) Paroxysmal A-fib (Acute) Dehydration (Acute) Limited code status (Acute) Pleural effusion (Acute) Abdominal lymphadenopathy (Acute) DVT (deep venous thrombosis) (Chronic) Mediastinal adenopathy (Acute) Lung mass (Acute) COPD exacerbation (Acute) Respiratory distress (Acute) Overgrown toenails (Acute) DJD (degenerative joint disease) (Chronic) Depressive disorder (Chronic) Crohn's disease (Chronic) Self Reported Venous stasis ulcer of ankle limited to breakdown of skin (Acute) Venous stasis dermatitis of both lower extremities (Acute) Pulmonary HTN (Chronic) Mitral regurgitation (Chronic) Diastolic dysfunction (Chronic) Lymphedema of both lower extremities (Chronic) Ischemic ulcer of right ankle, limited to breakdown of skin (Acute) Smoking greater than 40 pack years (Chronic) cont on smoking cessation 08/2019 quit smoking; quit 2019 Venous insufficiency of both lower extremities (Chronic) as above Left varicocele (Acute 05/09/17) Microscopic hematuria (Acute 02/03/16) Osteoarthritis of hip (Acute 12/14/12) Right hydrocele (Acute 02/04/17) Osteoarthritis of hip (Acute 01/14/14) Total hip arthroplasty by Dr. Jose Nieves 01/14/14; Ceramic head; press fit. Mitral valve prolapse (Chronic) Microscopic hematuria (Acute) Medical History Right femoral vein DVT Hypotension Venous stasis ulcer of right lower leg with edema of right lower leg Cellulitis of right leg Housing problems Tobacco use disorder Alcohol dependence in remission Anxiety 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 Ulcer of right lower extremity Gastroesophageal reflux disease Osteoarthritis Hypercholesterolemia BPH (benign prostatic hyperplasia) Surgical History Total replacement of hip bilateral Tonsillectomy and adenoidectomy Repair of umbilical hernia Repair of inguinal hernia Bilateral EGD - MAC Colonoscopy - MAC Cholecystectomy (11/01/17) Extraction of cataract Family History Mother Breast cancer Hypertension Anxiety Father CHF (congestive heart failure) Maternal Aunt Diabetes Social History Smoking/Tobacco Use Status: Former Tobacco Use Quit Date: 08/23/19 Tobacco: How many years used: 50 Quit status: quit date established (06/29/2019) Smoking risk assessment performed?: Yes Alcohol Intake: former Year quit: 2007 Drug use: Never Substance use type: does not use Adopted: No Caregiver/Support person: Yes Foster care: No Household members: other Details: Self Housing: assisted living facility Number of Children: 0 number of grandchildren: 0 Communication Needs: None Education Level: vocational Do you need help understanding health information?: Often current occupation: Disabled Pets and animals: No Sexually active: No Do you think of yourself as: straight/heterosexual Current gender identity: male What is your relationship status?: How often do you talk on the phone with friends or family?: three or more times per week How often do you get together with friends or relatives?: decline to answer Do you belong to any clubs or organized social groups?: yes Panel score (0-1 are the most socially isolated patients): 2 What type of physical activity do you participate in: other Details: Stretching - ROM - arms and wheelchair-bound Duration: 15-30 minutes/day Frequency: 3-4 times per week Yakelin/Gnosticist: Orthodox Special yakelin needs: No Seatbelt use: always Drive intox or ride w/intox special client bus driver: No (Does not apply) Do you feel safe at home: Yes Do you feel safe in your relationship?: Yes Exam Narrative Exam Narrative: He is seen as he is lying in bed His vital signs are documented elsewhere His suprapubic tube is intact and is draining clear urine He is awake and alert Results Last Vital Signs Temp 36.0 C L 05/23/23 07:30 Pulse 67 05/23/23 08:30 Resp 14 05/23/23 07:30 BP 98/49 L 05/23/23 08:30 Pulse Ox 96 05/23/23 08:30 Labs 05/24/23 06:10 05/23/23 06:09 Labs: Laboratory Results - last 24 hr 05/22/23 05/23/23 05/23/23 10:27 06:09 07:55 WBC 7.13 RBC 3.98 L Hgb 12.6 L Hct 37.3 L MCV 94 MCH 31.7 MCHC 33.8 RDW 13.9 Plt Count 159 MPV 11.3 H Immature Gran % 0.7 Neutrophils % 74.8 Lymphocytes % 10.1 Monocytes % 9.4 Eosinophils % 4.6 Basophils % 0.4 Nucleated RBC % 0.0 Absolute Neutrophils 5.33 Absolute Lymphocytes 0.72 L Absolute Monocytes 0.67 Absolute Eosinophils 0.33 Absolute Basophils 0.03 VBG Lactate 4.6 H* Sodium 136 Potassium 3.6 Chloride 97 L Carbon Dioxide 28.5 Anion Gap 10.5 BUN 74 H Creatinine 2.0 H Est GFR (CKD-EPI 2020) 36.13 Glucose 98 Calcium 9.2 Magnesium 2.1 Creatine Kinase 148 Procalcitonin 0.5 Add-On Test Request DONE 05/23/23 11:02 WBC RBC Hgb Hct MCV MCH MCHC RDW Plt Count MPV Immature Gran % Neutrophils % Lymphocytes % Monocytes % Eosinophils % Basophils % Nucleated RBC % Absolute Neutrophils Absolute Lymphocytes Absolute Monocytes Absolute Eosinophils Absolute Basophils VBG Lactate 1.7 H Sodium Potassium Chloride Carbon Dioxide Anion Gap BUN Creatinine Est GFR (CKD-EPI 2020) Glucose Calcium Magnesium Creatine Kinase Procalcitonin Add-On Test Request Imaging Imaging Studies: I reviewed his CT of the abdomen and pelvis on the PACS system. There is no sign of kidney stone, but there is streak artifact in the pelvis making it difficult to tell if there might be a bladder stone.
--- NOTE | 2023-05-23 16:05 | WOUNDCONS ---
Date of service: 05/23/23 Time of Service: 16:05 Wound Initial Evaluation Narrative Narrative: 68 year old male patient admitted 05/22/23 for evaluation and management of cellulitis, sepsis, and NAZARIO. Isra lives at [facility] and has assistance from home health with his care. Isra utilizes an electric wheelchair for ambulation and has a suprapubic catheter for urination. When met, this screenplay writer noted a diffuse scaly patchy nazario colored rash on bilateral arms, a diffuse red rash on the patients abdomen and stage 2 pressure injury in perineal/groin with redness and a rashy periwound area. Providing assistance with cleaning and repositioning, the primary nurse Parag Whelan RN was present and participated with patient education. Recent labs, allergies and the H&P were reviewed, and a photo consent was signed by the patient. Isra's rash in the charlene area was washed and this screenplay writer applied a light coating of skin lotion containing zinc for protection. No brief was applied and the patient was educated on the importance of frequent repositioning and offloading with wedges and pillows for comfort. After the wounds were cleaned and lotion was applied, this screenplay writer spoke via a video chat with Isra and sibling (Mariluz, who stated that she is a RN). Mariluz stated that there are frequent discussions between the two regarding repositioning and offloading the buttock area. Isra reports that he is uncomfortable with side lying and prefers to lay supine and reports being stationary in his electric wheelchair all day. Isra is able to transfer himself from the bed to the wheel chair independently, Isra also reports recently he has been to weak to stand. Options for sleeping without a brief in place were discussed with Isra and Mariluz, and more frequent bathing (with assistance from home health). Isra is fortunate to live in a handicapped accessible apartment to accommodate the electric wheelchair and has a bench seat in the bathroom with a hand held wand for showering and bathing ease. Wound Perineal area: Wound Type: Pressure Ulcer and Partial Thickness (with fissures near the scrotum) Pressure Ulcer Stage: II Wound General Appearance: Reddened and Bleeding Wound Bed Greatest Portion: Red (Granulation) and Shiny Wound Bed Lesser Portion: Yellow (Slough) Wound Surrounding Tissue Appearance: [place] Percent of Wound Bed Granulated/Red: 80 Percent of Wound Bed Slough/Yellow: 20 Wound Length: 12 cm Wound Width: 16 cm Wound Drainage Amount: Minimal Wound Drainage Odor: Foul Odor Wound Drainage Description: Bloody Wound Topical Solution/Irrigant: Other Wound Debridement Result: Healthy Tissue Revealed and Yellow Sloughing Remains Wound Debridement Amount of Tissue Removed: Minimal Additional Other Comments: Soap and water with a soft cloth used for washing charlene area. Yellow/darkened loosely adherent slough exfoliated during washing. Photo Photo: Treatment/Dressing Change Topicals/Ointments: Zincoxide Dressing Comment: This screenplay writer cleansed the area with soft cloths, soap and water. A wound cleanser would also be beneficial. The sensitive location of the wound deterred this screenplay writer from utilizing a spray application of cleanser. Nutrition Education Reviewed Nutrition Education: Yes Note: Discussed with Isra the importance of increased protein intake for optimal wound healing (patient utilizing Meals on Wheels at home). For protein sources Isra reports enjoying liver and onions, as well as chicken and turkey. Recomendation Recomendation:: BID and as needed: Cleanse the area with soft cloths utilizing soap and water. Pat dry. Apply thin layer of Luis's cream compound available via hospital pharmacy. Encourage and assist patient with Q2 hour repositioning as needed. Physcian/Nurse Practioner Notified: Yes Treatment Time Time Total Time Spent with Patient: 90
[2023-05-23 16:32] VITALS: BP 110/55; PULSE 65; RESP 16; TEMP 36.1; O2SAT 93
[2023-05-23 19:25] VITALS: BP 98/54; PULSE 67; RESP 17; TEMP 36.1; O2SAT 94
[2023-05-23 23:47] VITALS: BP 98/56; PULSE 63; RESP 15; TEMP 36.3; O2SAT 92
[2023-05-24] MEDS: Lactated Ringers 1,000 ML 150 ML IV (00:30)
[2023-05-24 03:08] VITALS: BP 118/64; PULSE 66; RESP 16; TEMP 36.9; O2SAT 91
[2023-05-24] MEDS: Enoxaparin 100 MG/ML SYR SC ×2 (04:10→15:52)
[2023-05-24] MEDS: PIPERACILLIN/TAZO 4.5 GM in Normal Saline 100 ML IVPB (04:10)
[2023-05-24] MEDS: Acetaminophen 325 MG TAB 650 MG PO ×4 (05:55→22:18)
[2023-05-24 06:55] LABS: Abs Immature Grans 0.08 10^3/uL (0.0-0.06); Absolute Basophil Count 0.04 10^3/uL (0.0-0.2); Absolute Eosinophil Count 0.39 10^3/uL (0.0-0.7); Absolute Monocyte Count 0.75 10^3/uL (0.1-0.8); Absolute Neutrophil Count 4.75 10^3/uL (1.2-6.7); Basophils % 0.6; Eosinophils % 5.6; HGB 12.9 g/dL (13.5-17.5); Immature Grans % 1.1; Lymphocytes % 14.3; MCH 31.4 pg (27.0-33.0); MCHC 33.1 % (32.0-36.0); MCV 95 fL (80-95); MPV 11.5 fL (8.0-11.0); Monocytes % 10.7; Neutrophils % 67.7; Platelet Count 158 10^3/uL (130-400); RBC 4.11 10^6/uL (4.36-5.78); RDW 14.2 % (11.8-14.1); RDW-SD 49.1 fL; WBC 7.01 10^3/uL (4.4-10.8)
[2023-05-24 07:35] LABS: Anion Gap 11.5 mmol/L (3-11); BUN 49 mg/dL (7-18); C-Reactive Protein 4.17 mg/dL (<or=0.5); CO2 26.5 mmol/L (21.0-32.0); CREATININE 1.6 mg/dL (0.70-1.30); Calcium 9.5 mg/dL (8.5-10.1); Chloride 102 mmol/L (98-107); Estimated GFR 47.23 (mL/min/1.73m2); Glucose 90 mg/dL (74-106); Magnesium 2.1 mg/dL (1.8-2.4); Potassium 3.8 mmol/L (3.5-5.1); Sodium 140 mmol/L (136-145)
[2023-05-24] MEDS: Tiotropium/Olodaterol 10 PUFF INHALER 2 PUFF IH (07:50)
[2023-05-24] MEDS: Polyethylene Glycol 3350 17 GM PACKET PO (08:15)
[2023-05-24] MEDS: Docusate Sodium 100 MG CAP PO (08:16)
[2023-05-24] MEDS: Pregabalin 25 MG CAP 75 MG PO ×2 (08:17→21:04)
[2023-05-24] MEDS: Cholecalciferol (Vitamin D3) 400 UNIT TAB 800 UNIT PO (08:17)
[2023-05-24] MEDS: Calcium Polycarbophil 625 MG TAB 1250 MG PO (08:17)
[2023-05-24] MEDS: Ascorbic Acid 500 MG TAB PO ×3 (08:17→21:04)
[2023-05-24] MEDS: Normal Saline Flush 10 ML SYR IVP ×3 (08:18→21:06)
[2023-05-24 08:42] VITALS: BP 101/63; PULSE 61; TEMP 36.1; O2SAT 94
[2023-05-24 08:42] LABS: Procalcitonin 0.2 ng/mL
--- NOTE | 2023-05-24 09:58 | PDOC.CMPRO ---
Date of service: 05/24/23 Time of Service: 09:58 Care Management Progress Note Progress Note Text Progress Note Text: S/O:Isra was sitting up in a chair when CM met with him. He appeared to be in good spirits and engaged easily with CM. Isra had several questions about his plan of care that CM was able to answer. He verbalized that he would really like to go home and is unsure how long he will need to remain in the hospital. Isra's blood cultures are negative at 48 hours and he does not have any evidence of osteomyelitis so it is unlikely that he will require superintendent marine oil terminal IV antibiotics. His blood pressures have stabilized and he remains afebrile. A: Isra is a 68 year old man admitted on 05/22/23 with sepsis P:Anticipate Isra will return home when medically cleared with a resumption of his community supports through [facility]. He will follow up with his PCP and plan of care and transport via [facility] coordinated by CM. CM will follow and continue to assess for discharge needs. SDOH(Care Management) Screening Will the Patient Participate in the Screening?: Yes Do you worry about having a steady place to live?: no Problems where you live: no known problems In the past 12 months, have you had to go without electric, gas, oil or water in your home?: no Have you or anyone in your house had to go without enough food to eat?: no Has lack of transportation kept you from medical appointments or from doing things needed for daily living?: no Has anyone in your support network made you feel unsafe for any reason?: no
[2023-05-24] MEDS: Ferrous Sulfate 325 MG TAB PO (10:39)
--- NOTE | 2023-05-24 11:02 | PTTR_ITS ---
Date of service: 05/24/23 Time of Service: 10:35 PT Notes Visit Reasons: Sepsis,Hypotension,NAZARIO,Elevated BUN Inpatient Physical Therapy Treatment Note [facility] Date: 05/24/23 PRECAUTIONS: Fall, contact, activity as tolerated. SUBJECTIVE: Patient reports that he has already been very active this morning, getting out of bed and walking to chair. OBJECTIVE: Sitting up in bedside recliner, feet elevated, agreeable to therapy. ? PAIN: Reports pain in right knee due to blood clot. VITALS: monitored by nursing staff. Therapeutic Activities ([id number]): Direct one-on-one instruction in dynamic activities to improve functional performance. ? BED MOBILITY/TRANSFERS? Rolling L/R: not assessed Supine-sit: not assessed? Sit-supine: AFTERNOON: mod assist of one to raise bilateral legs into bed. Patient reports that he can do it from the right side of the bed but not the left. ?Sit-stand: CGA via gait belt? Stand-sit: CGA via gait belt ? Bed-Chair: CGA via gait belt ? Chair-bed: CGA via gait belt ? ? Patient reports needing a boost, then demonstrates ability to boost himself up Mod I with hand corporate legal assistant on headboard. Provided skilled cues and instruction on performance and technique throughout. ? Therapeutic Exercises ([id number]): Direct one-on-one instruction in therapeutic exercises to develop strength, endurance, range of motion and flexibility. ? Exercises: * ankle pumps 2x10 * LAQ 2x10 * seated march 2x20 * hip ab/adduction 2x10 * diaphragmatic breathing with BUE horizontal ab/adduction Ambulation ? Assistive Device: FWW ? Weight bearing: full Assist: CGA via gait belt ? Distance:? 12 feet ? Deviation: reduced step length, reduced step height, extreme slow amberly. Slightly kyphotic posture. ? Provided skilled instruction in proper exercise performance Provided skilled manual cues to facilitate proper muscle recruitment and/or form. ASSESSMENT:? Patient tolerates therapy well: better in the afternoon than the morning. AM session cut short when patient declares that he is done and needs a rest, stating that he has had a very busy morning. Plans made for this clinician to return after lunch to assist patient into bed before a show that the patient enjoys comes on at 2 pm. PLAN: Continue global strengthening and activity tolerance training per plan of care until patient is medically cleared for discharge. TREATMENT CODE/TIME: 16 minutes beginning at 10:35 and 22 minutes beginning at 13:03 for a total of 38 minutes today.
[2023-05-24 11:30] VITALS: BP 92/62; PULSE 67; TEMP 36.2; O2SAT 94
[2023-05-24] MEDS: VANCOMYCIN/WATER (PEG) 2 GM/400 ML BAG IVPB (12:39)
--- NOTE | 2023-05-24 12:54 | W.PM.PROGNOT ---
Date of Service Date of service: 05/24/23 Time of Service: 12:54 Assessment and Plan Assessment and plan (1) Severe sepsis: Status: Resolved Assessment and plan: BP improved SBP 90-110s Wound cx positive for MRSA Discontinue Zosyn Start vancomycin and cefazolin Awaiting blood cultures results Oral fluids DC IVF Monitoring for hypotension, fever, leukocytosis, Trending inflammatory markers CRP and procalcitonin (2) Sepsis: Status: Acute Assessment and plan: As above Not requiring IVF at this time monitor VS Qualifiers: Sepsis acute organ dysfunction status: with acute organ dysfunction Severe sepsis acute organ dysfunction type: acute renal failure (3) Cellulitis: Status: Acute Assessment and plan: As above and wound consult (4) Perineal ulcer: Status: Acute Assessment and plan: Wound consult - see note Luis cream TID (5) UTI (urinary tract infection): Status: Acute Assessment and plan: Culture pending Changed suprapubic cath on admission Seen by urology OK to dc - cysto out pt (6) NAZARIO (acute kidney injury): Status: Acute Assessment and plan: Acute on chronic LR discontinued holding diuretics and will reevalute Maintain avoidance of nephrotoxic drugs Cr 1.6 today Monitor BMP (7) Emphysema lung: Status: Chronic Assessment and plan: Continue Stiolto and PRN nebs (8) DVT (deep venous thrombosis): Status: Chronic Assessment and plan: Continue therapeutic dose of lovenox failed Apixaban at home Will monitor for bleeding Qualifiers: Affected thrombotic vein of extremity: unspecified vein of extremity Chronicity: chronic DVT location: lower extremity Laterality: bilateral Qualified Code(s): I82.503 - Chronic embolism and thrombosis of unspecified deep veins of lower extremity, bilateral (9) Contraindication to deep vein thrombosis (DVT) prophylaxis: Status: Acute Assessment and plan: As above (10) Discharge planning issues: Status: Acute Assessment and plan: Seen by palliative care DNR/DNI discussed with Dr. Smith Subjective Subjective Patient reports: no new complaints, tolerating a regular diet, bowel movement and afebrile; denies diarrhea, nausea, vomiting or shortness of breath Interval history since last seen: Sitting in the chair, states he is generally feeling better and would like to know when he can go home. Exam Const General: cooperative and no acute distress HENMT Mouth: moist mucous membranes Eyes Conjunctivae: conjunctival abnormality bilaterally conjunctival injection Sclera: normal sclerae Neck Neck: trachea midline Resp Auscultation: clear to auscultation bilaterally, no rales, no rhonchi and no wheezes Cardio Rate: regular rate and not tachycardic Rhythm: regular rhythm GI Palpation: soft, not firm, no guarding, no masses, not rigid and nontender Skin Rashes: rashes noted Other: Scaly, erythematous rash with superficial ulcerations, arms, back, abdomen. Decubitus ulcers bilateral buttocks with surrounding erythema and skin breakdown involving the perineum, foul-smelling odor Neuro General: patient alert, patient awake, patient oriented x3 and tone normal Extrem General: edema Laterality: bilateral Psych Appearance: grossly normal Mental Status: mental status grossly normal Objective Last Vital Signs Temp 36.1 C L 05/24/23 08:42 Pulse 61 05/24/23 08:42 Resp 16 05/24/23 03:08 BP 101/63 05/24/23 08:42 Pulse Ox 94 05/24/23 08:42 Laboratory Results - last 24 hr 05/24/23 06:10 WBC 7.01 RBC 4.11 L Hgb 12.9 L Hct 39.0 L MCV 95 MCH 31.4 MCHC 33.1 RDW 14.2 H Plt Count 158 MPV 11.5 H Immature Gran % 1.1 Neutrophils % 67.7 Lymphocytes % 14.3 Monocytes % 10.7 Eosinophils % 5.6 Basophils % 0.6 Nucleated RBC % 0.0 Absolute Neutrophils 4.75 Absolute Lymphocytes 1.00 L Absolute Monocytes 0.75 Absolute Eosinophils 0.39 Absolute Basophils 0.04 Sodium 140 Potassium 3.8 Chloride 102 Carbon Dioxide 26.5 Anion Gap 11.5 H BUN 49 H Creatinine 1.6 H Est GFR (CKD-EPI 2020) 47.23 Glucose 90 Calcium 9.5 Magnesium 2.1 C-Reactive Protein 4.17 Procalcitonin 0.2 Time Spent with Patient Time Spent with Patient: 25-34 minutes Time was spent: preparing to see the patient(eg.review tests), ordering medications,tests, procedures, referring, communicating with other health career development coordinator, indepentently interpreting results, counseling the patient and care coordination
--- NOTE | 2023-05-24 13:58 | PHA.REVIEW2 ---
Pharmacy Admission Review Admission Clinical Review Admission Pharmacy Review: (Updated 05/23/23 @ 12:42 by Harini Sauceda APRN) Severe sepsis (Acute) Quality of life palliative care patient (Acute) UTI (urinary tract infection) (Acute) Contraindication to deep vein thrombosis (DVT) prophylaxis (Acute) Sepsis (Acute) Hypotensive episode (Acute) NAZARIO (acute kidney injury) (Acute) Cellulitis (Acute) Perineal ulcer (Acute) Emphysema lung (Acute) levofloxacin [From Levaquin] Adverse Reaction (Intermediate, Verified 05/22/23 13:34) purpura silicone Adverse Reaction (Intermediate, Verified 05/22/23 13:34) Hives; Rash Sulfa (Sulfonamide Antibiotics) Adverse Reaction (Intermediate, Verified 05/22/23 13:34) Itching Seasonal Allegies Allergy (Intermediate, Uncoded 05/22/23 13:34) Runny nose Resuscitation Status DNR/DNI Height 5 ft 6 in Weight 102.1 kg Comments Comments/Follow Ups: Per morning meeting, patient is overall improving. Watch for vancomycin trough and adjust regimen as needed. Pharmacy Admission Review Renal Dosing Renal Dosing: BUN 49 mg/dL (7-18) H 05/24/23 06:10 Creatinine 1.6 mg/dL (0.70-1.30) H 05/24/23 06:10 Medications needing adjustments: Reviewed (CrCl 50.8 mL/min) List of meds needing interventions: BUN decreased to 49 from 74 and SCr decreased to 1.6 from 2 Anticoagulation Anticoagulation: Hgb 12.9 g/dL (13.5-17.5) L 05/24/23 06:10 Hct 39.0 % (40.0-50.0) L 05/24/23 06:10 Plt Count 158 10^3/uL (130-400) 05/24/23 06:10 Creatinine 1.6 mg/dL (0.70-1.30) H 05/24/23 06:10 Therapeutic Anticoagulation: Reviewed Medications: Enoxaparin (100mg q12h) Relevant Labs Relevant Labs: ESR 39 mm/hr (0-20) H 05/22/23 10:27 Sodium 140 mmol/L (136-145) 05/24/23 06:10 Potassium 3.8 mmol/L (3.5-5.1) 05/24/23 06:10 Chloride 102 mmol/L (98-107) 05/24/23 06:10 Magnesium 2.1 mg/dL (1.8-2.4) 05/24/23 06:10 C-Reactive Protein 4.17 mg/dL (<or=0.5) 05/24/23 06:10 Electrolytes, C-Reactive P, ESR: Reviewed (Hgb 12.9) Cardiac Review Cardiac Review: Troponin I < 50 ng/L (< or =60) 05/22/23 10:27 Blood Pressure 92/62 1130 Blood Pressure 101/63 0842 Blood Pressure 118/64 0308 BP, HR, EF%: Reviewed (HR WNL, BP 92/62) QTc Review QTc: Reviewed (437 on 05/22/23) IV to PO Switch IV Medications: Reviewed Home Meds Home Med List reviewed: Reviewed Relevent Home Meds Not ordered & why?: On home med list but no order: miconazole cream Current Meds Current Medication Order Review: Reviewed Pharmacy Antibiotic Review Relevant Labs: Relevant Labs 05/24/23 06:10 C-Reactive Protein 4.17 Procalcitonin 0.2 Pharmacy Antibiotic Activity: Abx regimen adjustment and C/S review Comments: Wound culture came back positive for MRSA as well as gram + and - mixed andrzej. Zosyn was discontinued and patient started on Vancomyin and cefazolin. Vancomcyin 2000mg loading dose given with trough scheduled for tomorrow at 1100 (right now per insight Rx regimen would be 1500mg q24h with predicted AUC of 588 and trough of 15.3. Blood culture showing now growth and urine culture showing gram + and - mixed andrzej. Comments Comments/Follow Ups: Per morning meeting, patient is overall improving. Watch for vancomycin trough and adjust regimen as needed.
[2023-05-24 15:02] VITALS: BP 111/57; PULSE 64; RESP 18; TEMP 36.6; O2SAT 94
[2023-05-24] MEDS: ceFAZolin 2 GM/50 ML BAG IVPB ×2 (15:09→22:03)
[2023-05-24 19:25] VITALS: BP 121/56; PULSE 71; RESP 18; TEMP 36.5; O2SAT 91
[2023-05-25] VITALS (7 sets, daily range): BP systolic 92–113; BP diastolic 54–63; PULSE 61–81; RESP 16–20; TEMP 36.3–36.7; O2SAT 90–97
[2023-05-25] MEDS: Enoxaparin 100 MG/ML SYR SC (03:55)
[2023-05-25] MEDS: ceFAZolin 2 GM/50 ML BAG IVPB ×3 (06:04→21:30)
[2023-05-25 06:52] LABS: Abs Immature Grans 0.09 10^3/uL (0.0-0.06); Absolute Basophil Count 0.05 10^3/uL (0.0-0.2); Absolute Eosinophil Count 0.49 10^3/uL (0.0-0.7); Absolute Lymphocyte Count 1.14 10^3/uL (1.2-3.4); Absolute Monocyte Count 0.82 10^3/uL (0.1-0.8); Basophils % 0.6; Eosinophils % 6.2; HCT 37.4 % (40.0-50.0); HGB 12.2 g/dL (13.5-17.5); Immature Grans % 1.1; Lymphocytes % 14.4; MCH 31.4 pg (27.0-33.0); MCHC 32.6 % (32.0-36.0); MCV 96 fL (80-95); MPV 10.7 fL (8.0-11.0); Monocytes % 10.4; Neutrophils % 67.3; Platelet Count 156 10^3/uL (130-400); RBC 3.88 10^6/uL (4.36-5.78); RDW 14.6 % (11.8-14.1); RDW-SD 51.1 fL; WBC 7.89 10^3/uL (4.4-10.8)
[2023-05-25 07:22] LABS: Anion Gap 10.9 mmol/L (3-11); BUN 30 mg/dL (7-18); CO2 24.1 mmol/L (21.0-32.0); CREATININE 1.4 mg/dL (0.70-1.30); Calcium 9.4 mg/dL (8.5-10.1); Chloride 108 mmol/L (98-107); Estimated GFR 55.43 (mL/min/1.73m2); Glucose 87 mg/dL (74-106); Potassium 3.8 mmol/L (3.5-5.1); Sodium 143 mmol/L (136-145)
[2023-05-25] MEDS: Cholecalciferol (Vitamin D3) 400 UNIT TAB 800 UNIT PO (08:16)
[2023-05-25] MEDS: Calcium Polycarbophil 625 MG TAB 1250 MG PO (08:17)
[2023-05-25] MEDS: Normal Saline Flush 10 ML SYR IVP ×2 (08:17→20:04)
[2023-05-25] MEDS: Ascorbic Acid 500 MG TAB PO ×3 (08:17→20:02)
[2023-05-25] MEDS: Pregabalin 25 MG CAP 75 MG PO ×2 (08:17→20:02)
[2023-05-25] MEDS: Tiotropium/Olodaterol 10 PUFF INHALER 2 PUFF IH (08:21)
--- NOTE | 2023-05-25 09:11 | PDOC.CMPRO ---
Date of service: 05/25/23 Time of Service: 09:11 Care Management Progress Note Progress Note Text Progress Note Text: S/O:Keisha was sitting up in bed when CM met with him. As he frequently does, Keisha asked if CM knew when he would be ready for discharge. Keisha's vital signs are stable, he is afebrile and CRP and procalcitonin have normalized. Dr. Carpenter saw him in consultation this afternoon and performed a biopsy of the rash on his arm. CM asked keisha if he would consider rehab if recommended and he replied that he just wants to go home. A: Keisha is a 68 year old man admitted on 05/22/23 with sepsis P:Anticipate Keisha will return home when medically cleared with a resumption of his community supports through [facility]. He will follow up with his PCP and plan of care and transport via RCT coordinated by CM. CM will follow and continue to assess for discharge needs. SDOH(Care Management) Screening Will the Patient Participate in the Screening?: Yes Do you worry about having a steady place to live?: no Problems where you live: no known problems In the past 12 months, have you had to go without electric, gas, oil or water in your home?: no Have you or anyone in your house had to go without enough food to eat?: no Has lack of transportation kept you from medical appointments or from doing things needed for daily living?: no Has anyone in your support network made you feel unsafe for any reason?: no
[2023-05-25] MEDS: Ferrous Sulfate 325 MG TAB PO (09:58)
[2023-05-25 11:54] LABS: Vancomycin, Trough 12.6 ug/mL (10.0-20.0)
--- NOTE | 2023-05-25 11:57 | PT.INTREAT ---
Date of service: 05/25/23 Time of Service: 10:29 PT Notes Visit Reasons: Sepsis,Hypotension,NAZARIO,Elevated BUN Inpatient Physical Therapy Treatment Note [facility] Date: 05/25/23 PRECAUTIONS: Fall, CONTACT, activity as tolerated. SUBJECTIVE: Patient reports wanting to hurry up and get this biopsy over with so [he] can get out of here! States that he wants to return home. OBJECTIVE: Patient sidelying in bed receiving hygiene assistance when approached for therapy. Is agreeable. AFTERNOON: Patient is sitting up in chair, agreeable to therapy. ? PAIN: Reports NO pain in either knee. Suspects that this is due to blood clots having resolved. VITALS: monitored by nursing staff. ? Therapeutic Activities (42906a0): Direct one-on-one instruction in dynamic activities to improve functional performance. ? BED MOBILITY/TRANSFERS? Rolling L/R: not assessed Supine-sit: min assist of one via handhold, patient pulls up to sit with <20 lbs of pressure. Patient requires extended time to maneuver his legs out of bed. Becomes short of breath, reports dizziness which resolves after sitting for a minute or two. ? Sit-supine: mod assist of one to maneuver feet into bed, manage IV line as well as scales catheter. ? Sit-stand: SBA? Stand-sit: SBA ? Bed-Chair: CGA ? Chair-bed: CGA Patient transfers from bed to bedside commode in the am. Has a BM. Refuses to clean himself up. AFTERNOON: Patient ambulates to the toilet rather than using the bedside commode. Acquiesces after encouragement to clean himself up with assistance after this second BM. Provided skilled cues and instruction on performance and technique throughout. ? Therapeutic Exercises (48698c3): Direct one-on-one instruction in therapeutic exercises to develop strength, endurance, range of motion and flexibility. ? Exercises ? sit to stands 2x3 Ambulation ? Assistive Device: FWW? Weight bearing: full Assist: CGA ? Distance:? 15 feet AFTERNOON: 12 feet, 15 feet ? Deviation: patient demonstrates reduced step length, reduced step height, wide base of support. Becomes very short of breath with exertion. ? Provided skilled instruction in proper exercise performance Provided skilled manual cues to facilitate proper muscle recruitment and/or form. ASSESSMENT:? Patient tolerates therapy well despite being very clear that he expects staff to perform his hygiene care for him. PLAN: Continue global strengthening per plan of care until patient is medically cleared for discharge. TREATMENT CODE/TIME: 31 minutes beginning at 10:29 and 42 minutes beginning at 12:55 for a total of 73 minutes today.
[2023-05-25] MEDS: VANCOMYCIN/WATER (PEG) 750 MG/150 ML BAG 100 MG IVPB ×2 (12:26→23:10)
--- NOTE | 2023-05-25 13:52 | PGE_ITS ---
Date of Service Date of service: 05/25/23 Time of Service: 13:52 Assessment and Plan Assessment and plan (1) Severe sepsis: Status: Resolved Assessment and plan: BP improved SBP > 110 Wound cx positive for MRSA Continue vancomycin and cefazolin Awaiting blood cultures results - no growth 72h WBC 7.89 Monitoring for hypotension, fever, leukocytosis, Trending inflammatory markers CRP 4.17 and procalcitonin 0.2 (2) Skin excoriation: Status: Acute Assessment and plan: Surgery to do skin bx Hold enoxaparin this florentino; resume tomorrow 05/26 Ammonium Lactate to arms BID (3) Cellulitis: Status: Acute Assessment and plan: As above and wound consult (4) Perineal ulcer: Status: Acute Assessment and plan: Wound consult - see note Luis cream TID (5) UTI (urinary tract infection): Status: Acute Assessment and plan: Culture pending Changed suprapubic cath on admission Seen by urology OK to dc - cysto out pt (6) NAZARIO (acute kidney injury): Status: Acute Assessment and plan: Acute on chronic LR discontinued holding diuretics and will reevalute Maintain avoidance of nephrotoxic drugs Cr 1.4 today Monitor BMP (7) Emphysema lung: Status: Chronic Assessment and plan: Continue Stiolto and PRN nebs (8) DVT (deep venous thrombosis): Status: Chronic Assessment and plan: Continue therapeutic dose of lovenox - hold tonight after skin bx failed Apixaban at home Will monitor for bleeding Qualifiers: Affected thrombotic vein of extremity: unspecified vein of extremity Chronicity: chronic DVT location: lower extremity Laterality: bilateral Qualified Code(s): I82.503 - Chronic embolism and thrombosis of unspecified deep veins of lower extremity, bilateral (9) Contraindication to deep vein thrombosis (DVT) prophylaxis: Status: Acute Assessment and plan: As above (10) Discharge planning issues: Status: Acute Assessment and plan: DNR/DNI discussed with Dr. Smith Subjective Subjective Patient reports: no new complaints, tolerating a regular diet, no flatus, bowel movement and afebrile; denies diarrhea, nausea, vomiting or shortness of breath Interval history since last seen: Awake, alert, conversant, pleasant, states he is feeling better today, arms are less itchy. Exam Const General: cooperative and no acute distress HENMT Mouth: moist mucous membranes Eyes Conjunctivae: conjunctival abnormality bilaterally conjunctival injection Sclera: normal sclerae Neck Neck: trachea midline Resp Auscultation: clear to auscultation bilaterally, no rales, no rhonchi and no wheezes Cardio Rate: regular rate and not tachycardic Rhythm: regular rhythm GI Palpation: soft, not firm, no guarding, no masses, not rigid and nontender Skin Rashes: rashes noted Other: Scaly, erythematous rash with superficial ulcerations, arms, back, abdomen. Decubitus ulcers bilateral buttocks with surrounding erythema and skin breakdown involving the perineum, foul-smelling odor Neuro General: patient alert, patient awake, patient oriented x3 and tone normal Extrem General: edema Laterality: bilateral Psych Appearance: grossly normal Mental Status: mental status grossly normal Objective Last Vital Signs Temp 36.7 C 05/25/23 10:50 Pulse 72 05/25/23 10:50 Resp 18 05/25/23 10:50 BP 98/61 L 05/25/23 10:50 Pulse Ox 97 05/25/23 10:50 Laboratory Results - last 24 hr 05/25/23 05/25/23 06:10 11:05 WBC 7.89 RBC 3.88 L Hgb 12.2 L Hct 37.4 L MCV 96 H MCH 31.4 MCHC 32.6 RDW 14.6 H Plt Count 156 MPV 10.7 Immature Gran % 1.1 Neutrophils % 67.3 Lymphocytes % 14.4 Monocytes % 10.4 Eosinophils % 6.2 Basophils % 0.6 Nucleated RBC % 0.0 Absolute Neutrophils 5.30 Absolute Lymphocytes 1.14 L Absolute Monocytes 0.82 H Absolute Eosinophils 0.49 Absolute Basophils 0.05 Sodium 143 Potassium 3.8 Chloride 108 H Carbon Dioxide 24.1 Anion Gap 10.9 BUN 30 H Creatinine 1.4 H Est GFR (CKD-EPI 2020) 55.43 Glucose 87 Calcium 9.4 Magnesium 2.0 Vancomycin Trough 12.6 Time Spent with Patient Time Spent with Patient: 35-49 minutes Time was spent: preparing to see the patient(eg.review tests), ordering medications,tests, procedures, referring, communicating with other health respiratory care practitioner, indepentently interpreting results, counseling the patient and care coordination
--- NOTE | 2023-05-25 17:38 | SCONE_ITS ---
Date of service: 05/25/23 Time of Service: 17:38 Assessment and Plan Assessment and plan (1) Skin excoriation: Status: Acute Assessment and plan: I do not know what to make of the skin lesions. I agree that biopsy is probably the most reasonable course of action at this point. Therefore, we talked about the risks and benefits of incisional biopsy. In light of his therapeutic anticoagulation, I think the safest option at this point is to take 1 biopsy involving both normal and abnormal appearing skin. I think this will help minimize bleeding complications, and preserve other options for future biopsies if needed. Therefore, after obtaining his informed consent, I prepped and draped in area of the right bicep at in the usual fashion. I established a generous field block using local anesthetic with epinephrine. Next, within the field, I made a semielliptical incision of the skin, taking care to incorporate both normal- appearing skin, as well as the adjacent skin with extensive erythema. I used a 15 blade scalpel to dissect into the subcutaneous fat ensuring that we had a full-thickness sample of the skin. The excision site was approximately 1.5 cm long by approximately 0.75 cm wide. The specimen was preserved in formalin and labeled appropriately. Next, the wound site was irrigated. It was hemostatic. The skin was then closed using interrupted Prolene stitches. A Band-Aid was applied as dressing. History of Present Illness History of Present Illness Chief Complaint: Rash Narrative: I was asked to see Mr. Mao for biopsy of an extensive skin rash. Isra is 68 years old, and he comes to the hospital after being found hypotensive at home. He checks his own blood pressure, and it was far below normal. It sounds like he may have contacted visiting nurse, who recommended he go to the emergency department. His past medical history is most significant for B-cell lymphoma that was treated approximately 3 years ago with favorable response. It sounds like most recently, he was seen by his primary care physician in March, with a new diagnosis of the rash. It was described as macular and eczematous involving the bilateral upper extremities, neck, and torso. It was treated with fsoz-[id number] steroids, which was later advanced to prednisone. It sounds like there is been no significant change since then. The patient complains of itching from the rash. Occasionally the skin becomes excoriated and bleeds. PFSH All Active Problems (Updated 05/25/23 @ 16:34 by Dayanna Rodriguez NP) Skin excoriation (Acute) Discharge planning issues (Acute) Septic shock (Acute) Quality of life palliative care patient (Acute) UTI (urinary tract infection) (Acute) Contraindication to deep vein thrombosis (DVT) prophylaxis (Acute) Pulmonary embolism (Chronic) Sepsis (Acute) Hypotensive episode (Acute) NAZARIO (acute kidney injury) (Acute) Cellulitis (Acute) Cervical spondylosis without myelopathy (Acute) Perineal ulcer (Acute) Cervical spine arthritis (Acute) Cervical radicular pain (Acute) Viral conjunctivitis of both eyes (Acute) Hypoadrenergic postural hypotension (Acute) Dyspnea (Acute) Emphysema lung (Chronic) Conductive hearing loss, bilateral (Acute) Chronic serous otitis media, bilateral (Acute) Recurrent serous otitis media of left ear (Acute) Intertrigo (Acute) Sensorineural hearing loss, bilateral (Acute) Conductive hearing loss in right ear (Acute) Congestive heart disease (Chronic 04/15/22) unspeciied HF chronicity, type Target weight 211# Chronic kidney disease, stage 3 unspecified (Chronic) Chronic serous otitis media, right ear (Acute) Nasal vestibulitis (Acute) Mixed hearing loss, bilateral (Acute) Hearing deficit (Acute) Acute serous otitis media of right ear (Acute) Onychomycosis (Acute) Chronic Urinary retention (Acute) Nephrotic syndrome (Acute) Pancreatic lesion (Acute) Hypoattenuation seen on CT 05/09 Fluid retention (Acute) Thrombosis of right saphenous vein (Acute) Left femoral vein DVT (Acute) Anxiety and depression (Chronic) 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 (Acute) Stage IV, high risk, B cell lymphoma, NOS, with extra node involvement(bone, spinal cord,pleura) 09/09/21 ([facility] [place] [facility] PET CT: No Active Lymphoma (Deauville score 1) Hypertrophic toenail (Acute) Anemia (Chronic) Cor pulmonale (chronic) (Chronic) Suprapubic catheter (Chronic) Incontinence of bowel (Acute) Acute kidney injury (Acute ~09/28/19) due to methotrexate therapy Weakness of both lower extremities (Acute) Hyperuricemia (Acute) Paroxysmal A-fib (Acute) Dehydration (Acute) Limited code status (Acute) Pleural effusion (Acute) Abdominal lymphadenopathy (Acute) DVT (deep venous thrombosis) (Chronic) Mediastinal adenopathy (Acute) Lung mass (Acute) COPD exacerbation (Acute) Respiratory distress (Acute) Overgrown toenails (Acute) DJD (degenerative joint disease) (Chronic) Depressive disorder (Chronic) Crohn's disease (Chronic) Self Reported Venous stasis ulcer of ankle limited to breakdown of skin (Acute) Venous stasis dermatitis of both lower extremities (Acute) Pulmonary HTN (Chronic) Mitral regurgitation (Chronic) Diastolic dysfunction (Chronic) Lymphedema of both lower extremities (Chronic) Ischemic ulcer of right ankle, limited to breakdown of skin (Acute) Smoking greater than 40 pack years (Chronic) cont on smoking cessation 08/2019 quit smoking; quit 2020 Venous insufficiency of both lower extremities (Chronic) as above Left varicocele (Acute 05/09/17) Microscopic hematuria (Acute 02/03/16) Osteoarthritis of hip (Acute 12/14/12) Right hydrocele (Acute 02/04/17) Osteoarthritis of hip (Acute 01/14/14) Total hip arthroplasty by Dr. Jose Nieves 01/14/14; Ceramic head; press fit. Mitral valve prolapse (Chronic) Microscopic hematuria (Acute) Medical History Right femoral vein DVT Hypotension Venous stasis ulcer of right lower leg with edema of right lower leg Cellulitis of right leg Housing problems Tobacco use disorder Alcohol dependence in remission Anxiety 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 Ulcer of right lower extremity Gastroesophageal reflux disease Osteoarthritis Hypercholesterolemia BPH (benign prostatic hyperplasia) Surgical History Total replacement of hip bilateral Tonsillectomy and adenoidectomy Repair of umbilical hernia Repair of inguinal hernia Bilateral EGD - MAC Colonoscopy - MAC Cholecystectomy (11/01/17) Extraction of cataract Family History Mother Breast cancer Hypertension Anxiety Father CHF (congestive heart failure) Maternal Aunt Diabetes Social History Smoking/Tobacco Use Status: Former Tobacco Use Quit Date: 08/23/19 Tobacco: How many years used: 50 Quit status: quit date established (06/29/2019) Smoking risk assessment performed?: Yes Alcohol Intake: former Year quit: 2007 Drug use: Never Substance use type: does not use Adopted: No Caregiver/Support person: Yes Foster care: No Household members: other Details: Self Housing: assisted living facility Number of Children: 0 number of grandchildren: 0 Communication Needs: None Education Level: vocational Do you need help understanding health information?: Often current occupation: Disabled Pets and animals: No Sexually active: No Do you think of yourself as: straight/heterosexual Current gender identity: male What is your relationship status?: How often do you talk on the phone with friends or family?: three or more times per week How often do you get together with friends or relatives?: decline to answer Do you belong to any clubs or organized social groups?: yes Panel score (0-1 are the most socially isolated patients): 2 What type of physical activity do you participate in: other Details: Stretching - ROM - arms and wheelchair-bound Duration: 15-30 minutes/day Frequency: 3-4 times per week Yakelin/Pentecostalism: Restorationism Special yakelin needs: No Seatbelt use: always Drive intox or ride w/intox peg driver: No (Does not apply) Do you feel safe at home: Yes Do you feel safe in your relationship?: Yes Exam Skin Other: There is extensive macular eczematous changes that give the gross appearance of psoriasis involving both upper extremities circumferentially. This extends from the fingertips to about the mid biceps. Chest is spared. Lower abdomen is involved as well, with similar clinical features. This extends down onto the thighs. Results Last Vital Signs Temp 97.3 F L 05/25/23 14:03 Pulse 77 05/25/23 14:03 Resp 20 05/25/23 14:03 BP 113/55 L 05/25/23 14:03 Pulse Ox 93 05/25/23 14:03 Labs 05/25/23 06:10 05/25/23 06:10 Labs: Laboratory Results - last 24 hr 05/25/23 05/25/23 06:10 11:05 WBC 7.89 RBC 3.88 L Hgb 12.2 L Hct 37.4 L MCV 96 H MCH 31.4 MCHC 32.6 RDW 14.6 H Plt Count 156 MPV 10.7 Immature Gran % 1.1 Neutrophils % 67.3 Lymphocytes % 14.4 Monocytes % 10.4 Eosinophils % 6.2 Basophils % 0.6 Nucleated RBC % 0.0 Absolute Neutrophils 5.30 Absolute Lymphocytes 1.14 L Absolute Monocytes 0.82 H Absolute Eosinophils 0.49 Absolute Basophils 0.05 Sodium 143 Potassium 3.8 Chloride 108 H Carbon Dioxide 24.1 Anion Gap 10.9 BUN 30 H Creatinine 1.4 H Est GFR (CKD-EPI 2020) 55.43 Glucose 87 Calcium 9.4 Magnesium 2.0 Vancomycin Trough 12.6
[2023-05-25] MEDS: Lachydrin 12% LOTION 225 GM BTL TP (21:30)
[2023-05-25] MEDS: Acetaminophen 325 MG TAB 650 MG PO (21:30)
[2023-05-26 03:40] VITALS: BP 109/65; PULSE 66; RESP 18; TEMP 36.8; O2SAT 92
[2023-05-26] MEDS: ceFAZolin 2 GM/50 ML BAG IVPB ×3 (06:00→20:20)
[2023-05-26 06:53] LABS: Abs Immature Grans 0.08 10^3/uL (0.0-0.06); Absolute Basophil Count 0.05 10^3/uL (0.0-0.2); Absolute Eosinophil Count 0.42 10^3/uL (0.0-0.7); Absolute Lymphocyte Count 0.94 10^3/uL (1.2-3.4); Absolute Monocyte Count 0.77 10^3/uL (0.1-0.8); Absolute Neutrophil Count 4.44 10^3/uL (1.2-6.7); Basophils % 0.7; Eosinophils % 6.3; HCT 38.1 % (40.0-50.0); HGB 12.5 g/dL (13.5-17.5); Immature Grans % 1.2; MCHC 32.8 % (32.0-36.0); MCV 97 fL (80-95); MPV 10.8 fL (8.0-11.0); Monocytes % 11.5; Neutrophils % 66.3; Platelet Count 144 10^3/uL (130-400); RBC 3.91 10^6/uL (4.36-5.78); RDW 14.9 % (11.8-14.1); RDW-SD 53.1 fL
[2023-05-26 07:08] LABS: Anion Gap 11.4 mmol/L (3-11); BUN 22 mg/dL (7-18); C-Reactive Protein 2.52 mg/dL (<or=0.5); CO2 24.6 mmol/L (21.0-32.0); CREATININE 1.3 mg/dL (0.70-1.30); Calcium 9.4 mg/dL (8.5-10.1); Chloride 105 mmol/L (98-107); Estimated GFR 60.59 (mL/min/1.73m2); Glucose 85 mg/dL (74-106); Sodium 141 mmol/L (136-145)
[2023-05-26 07:35] LABS: Procalcitonin 0.2 ng/mL
[2023-05-26 08:35] VITALS: BP 111/53; PULSE 67; RESP 18; TEMP 36; O2SAT 96
[2023-05-26] MEDS: Calcium Polycarbophil 625 MG TAB 1250 MG PO (08:39)
[2023-05-26] MEDS: Cholecalciferol (Vitamin D3) 400 UNIT TAB 800 UNIT PO (08:39)
[2023-05-26] MEDS: Ferrous Sulfate 325 MG TAB PO (08:39)
[2023-05-26] MEDS: Pregabalin 25 MG CAP 75 MG PO ×2 (08:39→20:19)
[2023-05-26] MEDS: Ascorbic Acid 500 MG TAB PO ×3 (08:39→20:19)
[2023-05-26] MEDS: Lachydrin 12% LOTION 225 GM BTL TP ×2 (08:41→21:30)
[2023-05-26] MEDS: Normal Saline Flush 10 ML SYR IVP ×2 (08:42→20:20)
[2023-05-26] MEDS: Tiotropium/Olodaterol 10 PUFF INHALER 2 PUFF IH (08:47)
--- NOTE | 2023-05-26 09:25 | OTIE_ITS ---
Occupational Therapy Notes Inpatient Occupational Therapy Evaluation Date: 05/26/23 Referring Doctor: Katie Smith MD OT Orders: Non urgent Precautions: Fall, Standard, DNR/DNI PATIENT PROFILE/ADMITTING DIAGNOSIS: Pt is a 68 year old male who was admitted to [facility] for the dx of L-sided weakness, essential HTN, DM, AMY, and hyperlipidemia. Past Medical History: All Active Problems (Updated 05/23/23 @ 12:42 by Harini Sauceda APRN) Severe sepsis (Acute) Septic shock (Acute) Quality of life palliative care patient (Acute) UTI (urinary tract infection) (Acute) Contraindication to deep vein thrombosis (DVT) prophylaxis (Acute) Pulmonary embolism (Chronic) Sepsis (Acute) Hypotensive episode (Acute) NAZARIO (acute kidney injury) (Acute) Cellulitis (Acute) Cervical spondylosis without myelopathy (Acute) Perineal ulcer (Acute) Cervical spine arthritis (Acute) Cervical radicular pain (Acute) Viral conjunctivitis of both eyes (Acute) Hypoadrenergic postural hypotension (Acute) Dyspnea (Acute) Emphysema lung (Acute) Conductive hearing loss, bilateral (Acute) Chronic serous otitis media, bilateral (Acute) Recurrent serous otitis media of left ear (Acute) Intertrigo (Acute) Sensorineural hearing loss, bilateral (Acute) Conductive hearing loss in right ear (Acute) Congestive heart disease (Chronic 04/15/22) unspeciied HF chronicity, type Target weight 211#Chronic kidney disease, stage 3 unspecified (Chronic) Chronic serous otitis media, right ear (Acute) Nasal vestibulitis (Acute) Mixed hearing loss, bilateral (Acute) Hearing deficit (Acute) Acute serous otitis media of right ear (Acute) Onychomycosis (Acute) ChronicUrinary retention (Acute) Nephrotic syndrome (Acute) Pancreatic lesion (Acute) Hypoattenuation seen on CT 05/09Fluid retention (Acute) Thrombosis of right saphenous vein (Acute) Left femoral vein DVT (Acute) Anxiety and depression (Chronic) 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 (Acute) Stage IV, high risk, B cell lymphoma, NOS, with extra node involvement(bone, spinal cord,pleura) 09/09/21 ([facility] [place] HEM/ONC) PET CT: No Active Lymphoma (Deauville score 1)Hypertrophic toenail (Acute) Anemia (Chronic) Cor pulmonale (chronic) (Chronic) Suprapubic catheter (Chronic) Incontinence of bowel (Acute) Acute kidney injury (Acute ~09/28/19) due to methotrexate therapyWeakness of both lower extremities (Acute) Hyperuricemia (Acute) Paroxysmal A-fib (Acute) Dehydration (Acute) Limited code status (Acute) Pleural effusion (Acute) Abdominal lymphadenopathy (Acute) DVT (deep venous thrombosis) (Chronic) Mediastinal adenopathy (Acute) Lung mass (Acute) COPD exacerbation (Acute) Respiratory distress (Acute) Overgrown toenails (Acute) DJD (degenerative joint disease) (Chronic) Depressive disorder (Chronic) Crohn's disease (Chronic) Self ReportedVenous stasis ulcer of ankle limited to breakdown of skin (Acute) Venous stasis dermatitis of both lower extremities (Acute) Pulmonary HTN (Chronic) Mitral regurgitation (Chronic) Diastolic dysfunction (Chronic) Lymphedema of both lower extremities (Chronic) Ischemic ulcer of right ankle, limited to breakdown of skin (Acute) Smoking greater than 40 pack years (Chronic) cont on smoking cessation 08/2019 quit smoking; quit 2019Venous insufficiency of both lower extremities (Chronic) as aboveLeft varicocele (Acute 05/09/17) Microscopic hematuria (Acute 02/03/16) Osteoarthritis of hip (Acute 12/14/12) Right hydrocele (Acute 02/04/17) Osteoarthritis of hip (Acute 01/14/14) Total hip arthroplasty by Dr. Jose Nieves 01/14/14; Ceramic head; press fit.Mitral valve prolapse (Chronic) Microscopic hematuria (Acute) Medical History Right femoral vein DVT Hypotension Venous stasis ulcer of right lower leg with edema of right lower leg Cellulitis of right leg Housing problems Tobacco use disorder Alcohol dependence in remission Anxiety On anticoagulant therapy for chronic DVTsVaricose veins of both lower extremities with complications Ulcer of right lower extremity Gastroesophageal reflux disease Osteoarthritis Hypercholesterolemia BPH (benign prostatic hyperplasia) Surgical History Total replacement of hip bilateral Tonsillectomy and adenoidectomy Repair of umbilical hernia Repair of inguinal hernia BilateralEGD - MAC Colonoscopy - MAC Cholecystectomy (11/01/17) Extraction of cataract Social History/Home Situation: Pt is a 68 year old male who lives locally at the [facility]. He notes that he has HH services that come in and (A) with his ADL/IADL routines. He states that he requires (A) with dressing, bathing, meal prep and does not drive. He requires (A) with his functional mobility and reports that he has a walk in shower with bench, grab bars and utilizes the elevator to get to his apartment. SUBJECTIVE: Pt was sitting in chair when OT arrived. He is agreeable to consultation and notes that he looks forward to returning home. OBJECTIVE: General Observation: (B) UE have skin redness and peeling, discomfort throughout. He is pleasant with IV in (L) UE. Mental Status: A&Ox3 Pain: c/o pain in arms and legs ROM: RUE WFL L UE WFL STRENGTH: RUE 4/5 throughout LUE 4/5 throughout FUNCTIONAL MOBILITY/ADLS: BATHING seated in chair Bathing UE (I) face, will hold on UE d/t cream on his (B) UE DRESSING seated in chair Dressing UE mod (A) Dressing LE pt reports that he is max (A). OT offers education on a sock aide and pt states that HH will do this for him. GROOMING AROM WFL enough to perform this (I) EATING (I) seated in chair. BALANCE: Static sitting Good Dynamic Sitting Good INFORMED CONSENT/EDUCATION: Pt instructed in purpose of OT Consult and plan of care. ASSESSMENT: Patient is a 68-year-old male referred to occupational therapy services with diagnosis of L-sided weakness, essential HTN, DM, AMY, and hyperlipidemia. Patient presents with clinical signs and symptoms consistent with dx, as demonstrated by the following impairment level findings/functional limitations: Impairments in ADL/IADL And leisure activities, decreased gross and fine motor control, decreased functional activity tolerance. Patient is assessed as a Low 17663 complexity based on the following: History: see above Examination: see functional limitations as noted above Presentation: evolving Decision Making: low complexity GOALS Goals x1 week 1. Grooming- seated in chair (I) 2. Dressing seated in chair with mod vc mod (I) 3. Bathing seated in chair with max (A) set up (I) UE and mod (A) LE 4. Toileting min (A) 5. Eating (I) PLAN OF CARE/TREATMENT PLAN: 1x/day, 5 days/ week x 1week Initiate Occupational Therapy Services for bathing, dressing, grooming, toileting, eating, transfer training. DISCHARGE RECOMMENDATIONS REturn home with services when medically cleared per MD. TREATMENT TIME/MINUTES/CODES 45101, [id number], 25 minutes Ayesha Demarco OTR/L [facility] [place], [place]
[2023-05-26] MEDS: VANCOMYCIN/WATER (PEG) 750 MG/150 ML BAG 100 MG IVPB (11:34)
[2023-05-26 11:56] LABS: Vancomycin, Trough 19.5 ug/mL (10.0-20.0)
--- NOTE | 2023-05-26 12:55 | PTTR_ITS ---
Date of service: 05/26/23 Time of Service: 10:40 PT Notes Visit Reasons: Sepsis,Hypotension,NAZARIO,Elevated BUN Inpatient Physical Therapy Treatment Note [facility] Date: 05/26/23 PRECAUTIONS: Fall, contact, activity as tolerated. SUBJECTIVE: Patient reports eagerness to go home, states that the doc told him that if his bloodwork looks good, he might go home this afternoon. OBJECTIVE: Sitting up in bedside recliner, agreeable to therapy. Suprapubic catheter in place. ? PAIN: none reported. VITALS: monitored by nursing staff. ? BED MOBILITY/TRANSFERS? Rolling L/R: not assessed Supine-sit: not assessed ? Sit-supine: min assist to move right (leading) leg into bed ? Sit-stand: SBA? Stand-sit: SBA ? Bed-Chair: SBA ? Chair-bed: SBA ? Therapeutic Exercises ([id number]): Direct one-on-one instruction in therapeutic exercises to develop strength, endurance, range of motion and flexibility. ? Exercises: * seated LAQ 2x10 * hamstring curl vs red theraband 2x10 * hip ab/adduction * seated heel raises Ambulation ? Assistive Device: FWW ? Weight bearing: full Assist: SBA? Distance:? 25 feet AFTERNOON: 30 feet? Deviation: wide JOHN, reduced step height and length. Patient requires extended time to recover between bouts of exertion, before his breathing returns to normal. ? Provided skilled instruction in proper exercise performance Provided skilled manual cues to facilitate proper muscle recruitment and/or form. ASSESSMENT:? Patient reports that he is walking more here than he ever does at home. PLAN: Continue global strengthening until patient is medically cleared for discharge. TREATMENT CODE/TIME: 27 minutes beginning at 10:40 and 31 minutes beginning at 13:15 for a total of 58 minutes today.
--- NOTE | 2023-05-26 14:51 | W.PM.PROGNOT ---
Date of Service Date of service: 05/26/23 Time of Service: 14:52 Assessment and Plan Assessment and plan (1) Severe sepsis: Status: Resolved Assessment and plan: BP improved SBP > 110 Wound cx positive for MRSA Continue vancomycin and cefazolin Awaiting blood cultures results - no growth 96h WBC 6.70 Monitoring for hypotension, fever, leukocytosis, Trending inflammatory markers CRP down to 2.52 and procalcitonin 0.2 (2) Skin excoriation: Status: Acute Assessment and plan: Surgery to do skin bx Hold enoxaparin this florentino; resume tomorrow 05/26 Ammonium Lactate to arms BID (3) Cellulitis: Status: Acute Assessment and plan: As above and wound consult (4) Perineal ulcer: Status: Acute Assessment and plan: Wound consult - see note Luis cream TID (5) UTI (urinary tract infection): Status: Acute Assessment and plan: Culture pending Changed suprapubic cath on admission Seen by urology OK to dc - cysto out pt (6) NAZAIRO (acute kidney injury): Status: Acute Assessment and plan: Acute on chronic LR discontinued holding diuretics and will reevalute Maintain avoidance of nephrotoxic drugs Cr 1.3 today Monitor BMP (7) Emphysema lung: Status: Chronic Assessment and plan: Continue Stiolto and PRN nebs (8) DVT (deep venous thrombosis): Status: Chronic Assessment and plan: Continue therapeutic dose of lovenox 100 mg BID failed Apixaban at home Will monitor for bleeding Qualifiers: DVT location: lower extremity Affected thrombotic vein of extremity: unspecified vein of extremity Chronicity: chronic Laterality: bilateral Qualified Code(s): I82.503 - Chronic embolism and thrombosis of unspecified deep veins of lower extremity, bilateral (9) Contraindication to deep vein thrombosis (DVT) prophylaxis: Status: Acute Assessment and plan: As above (10) Discharge planning issues: Status: Acute Assessment and plan: DNR/DNI discussed with Dr. Smith Subjective Subjective Patient reports: no new complaints, pain is less, tolerating a regular diet, bowel movement and afebrile; denies diarrhea or vomiting Interval history since last seen: Awake, alert, sitting in the chair, conversant, smiling, states he is feeling much better. Exam Const General: cooperative and no acute distress HENMT Mouth: moist mucous membranes Eyes Conjunctivae: conjunctival abnormality bilaterally conjunctival injection Sclera: normal sclerae Neck Neck: trachea midline Resp Auscultation: clear to auscultation bilaterally, no rales, no rhonchi and no wheezes Cardio Rate: regular rate and not tachycardic Rhythm: regular rhythm GI Palpation: soft, not firm, no guarding, no masses, not rigid and nontender Skin Rashes: rashes noted Other: Scaly, erythematous rash with superficial ulcerations, arms, back, abdomen. Decubitus ulcers bilateral buttocks with surrounding erythema and skin breakdown involving the perineum, foul-smelling odor Neuro General: patient alert, patient awake, patient oriented x3 and tone normal Extrem General: edema Laterality: bilateral Psych Appearance: grossly normal Mental Status: mental status grossly normal Objective Last Vital Signs Temp 36 C L 05/26/23 08:35 Pulse 67 05/26/23 08:35 Resp 18 05/26/23 08:35 BP 111/53 L 05/26/23 08:35 Pulse Ox 96 05/26/23 08:35 Laboratory Results - last 24 hr 05/26/23 05/26/23 05:50 11:20 WBC 6.70 RBC 3.91 L Hgb 12.5 L Hct 38.1 L MCV 97 H MCH 32.0 MCHC 32.8 RDW 14.9 H Plt Count 144 MPV 10.8 Immature Gran % 1.2 Neutrophils % 66.3 Lymphocytes % 14.0 Monocytes % 11.5 Eosinophils % 6.3 Basophils % 0.7 Nucleated RBC % 0.0 Absolute Neutrophils 4.44 Absolute Lymphocytes 0.94 L Absolute Monocytes 0.77 Absolute Eosinophils 0.42 Absolute Basophils 0.05 Sodium 141 Potassium 4.0 Chloride 105 Carbon Dioxide 24.6 Anion Gap 11.4 H BUN 22 H Creatinine 1.3 Est GFR (CKD-EPI 2020) 60.59 Glucose 85 Calcium 9.4 Magnesium 2.0 C-Reactive Protein 2.52 H Procalcitonin 0.2 Vancomycin Trough 19.5 Time Spent with Patient Time Spent with Patient: 35-49 minutes Time was spent: preparing to see the patient(eg.review tests), ordering medications,tests, procedures, referring, communicating with other health senior care assistant, indepentently interpreting results, counseling the patient and care coordination
[2023-05-26 15:03] VITALS: BP 114/69; PULSE 72; RESP 17; TEMP 36.7; O2SAT 96
[2023-05-26] MEDS: Enoxaparin 100 MG/ML SYR SC (16:01)
--- NOTE | 2023-05-26 20:12 | CMPROGNOTE_ITS ---
Date of service: 05/26/23 Time of Service: 20:13 Care Management Progress Note Progress Note Text Progress Note Text: S/O:Isra was sitting up in bed when CM met with him. He informed CM that he is still not clear when he will be able to go home. Isra is receiving IV antibiotics for the infection in his perineal wounds and he stated that he needs to be restarted on his Lovenox before discharge which is for the large clot in his right leg. He reported that he is feeling well and is anxious to go home. A: Isra is a 68 year old man admitted on 05/22/23 with sepsis P:Anticipate Isra will return home when medically cleared with a resumption of his community supports through [facility]. He will follow up with his PCP and plan of care and transport via RCT coordinated by CM. CM will follow and continue to assess for discharge needs. SDOH(Care Management) Screening Will the Patient Participate in the Screening?: Yes Do you worry about having a steady place to live?: no Problems where you live: no known problems In the past 12 months, have you had to go without electric, gas, oil or water in your home?: no Have you or anyone in your house had to go without enough food to eat?: no Has lack of transportation kept you from medical appointments or from doing thi ngs needed for daily living?: no Has anyone in your support network made you feel unsafe for any reason?: no
[2023-05-26 23:31] VITALS: BP 115/65; PULSE 71; RESP 20; TEMP 36.8; O2SAT 98
[2023-05-27] MEDS: Enoxaparin 100 MG/ML SYR SC (03:56)
[2023-05-27 04:15] VITALS: BP 110/67; PULSE 68; RESP 18; TEMP 36.1; O2SAT 95
[2023-05-27] MEDS: VANCOMYCIN/WATER (PEG) 1 GM/200 ML BAG IVPB (05:06)
[2023-05-27 07:42] VITALS: BP 110/59; PULSE 71; RESP 20; TEMP 36.6; O2SAT 98
[2023-05-27] MEDS: Tiotropium/Olodaterol 10 PUFF INHALER 2 PUFF IH (07:54)
[2023-05-27 08:07] LABS: Abs Immature Grans 0.05 10^3/uL (0.0-0.06); Absolute Basophil Count 0.03 10^3/uL (0.0-0.2); Absolute Eosinophil Count 0.42 10^3/uL (0.0-0.7); Absolute Lymphocyte Count 0.89 10^3/uL (1.2-3.4); Absolute Neutrophil Count 3.59 10^3/uL (1.2-6.7); Basophils % 0.5; Eosinophils % 7.7; HCT 41.1 % (40.0-50.0); HGB 13.6 g/dL (13.5-17.5); Immature Grans % 0.9; Lymphocytes % 16.2; MCH 32.4 pg (27.0-33.0); MCHC 33.1 % (32.0-36.0); MCV 98 fL (80-95); Monocytes % 9.1; Neutrophils % 65.6; RDW 15.2 % (11.8-14.1); RDW-SD 53.3 fL; WBC 5.48 10^3/uL (4.4-10.8)
[2023-05-27 08:27] LABS: Diff Comment Diff Reviewed; RBC Morphology Normal
--- NOTE | 2023-05-27 08:31 | PDOC.CMPRO ---
Date of service: 05/27/23 Time of Service: 08:31 Care Management Progress Note Progress Note Text Progress Note Text: S/O:Isra was sitting up in bed when CM met with him. A: Isra is a 68 year old man admitted on 05/22/23 with sepsis P:Anticipate Isra will return home when medically cleared with a resumption of his community supports through [facility]. He will follow up with his PCP and plan of care and transport via RCT coordinated by CM. CM will follow and continue to assess for discharge needs. SDOH(Care Management) Screening Will the Patient Participate in the Screening?: Yes Do you worry about having a steady place to live?: no Problems where you live: no known problems In the past 12 months, have you had to go without electric, gas, oil or water in your home?: no Have you or anyone in your house had to go without enough food to eat?: no Has lack of transportation kept you from medical appointments or from doing things needed for daily living?: no Has anyone in your support network made you feel unsafe for any reason?: no
[2023-05-27 08:44] LABS: Anion Gap 13.9 mmol/L (3-11); BUN 19 mg/dL (7-18); CO2 19.1 mmol/L (21.0-32.0); CREATININE 1.1 mg/dL (0.70-1.30); Calcium 9.4 mg/dL (8.5-10.1); Chloride 106 mmol/L (98-107); Estimated GFR 74.04 (mL/min/1.73m2); Glucose 77 mg/dL (74-106); Magnesium 1.9 mg/dL (1.8-2.4); Potassium 5.6 mmol/L (3.5-5.1); Sodium 139 mmol/L (136-145)
[2023-05-27] MEDS: Ascorbic Acid 500 MG TAB PO (09:29)
[2023-05-27] MEDS: Cholecalciferol (Vitamin D3) 400 UNIT TAB 800 UNIT PO (09:29)
[2023-05-27] MEDS: Docusate Sodium 100 MG CAP PO (09:30)
[2023-05-27] MEDS: Calcium Polycarbophil 625 MG TAB 1250 MG PO (09:31)
[2023-05-27] MEDS: Pregabalin 25 MG CAP 75 MG PO (09:31)
[2023-05-27] MEDS: Ferrous Sulfate 325 MG TAB PO (09:32)
[2023-05-27] MEDS: Normal Saline Flush 10 ML SYR IVP (09:33)
[2023-05-27] MEDS: Lachydrin 12% LOTION 225 GM BTL TP (09:34)
[2023-05-27] MEDS: ceFAZolin 2 GM/50 ML BAG IVPB (09:35)
[2023-05-27 10:47] LABS: Potassium 3.9 mmol/L (3.5-5.1)
--- NOTE | 2023-05-27 11:51 | W.PM.DS.N ---
Date of service: 05/27/23 Time of Service: 14:00 DS: Diagnosis Discharge Diagnosis (1) Severe sepsis: Status: Resolved (2) Skin excoriation: Status: Acute (3) Cellulitis: Status: Acute (4) Perineal ulcer: Status: Acute (5) UTI (urinary tract infection): Status: Acute (6) NAZARIO (acute kidney injury): Status: Acute (7) Emphysema lung: Status: Chronic (8) DVT (deep venous thrombosis): Status: Chronic (9) Contraindication to deep vein thrombosis (DVT) prophylaxis: Status: Acute (10) Discharge planning issues: Status: Acute Discharge Plan Disposition Patient Disposition: Home W/Home Health Services Condition: Fair Discharge Details Reason For Visit: Sepsis,Hypotension,NAZARIO,Elevated BUN Admit Date/Time: 05/22/23 14:25 Admit Provider: Katie Smith Attending Provider: Katie Smith Primary Care Provider: Renan Garcia [facility] Course Hospital Course: This 68 years old male patient with a past medical history significant for but not limited to history of DVT to the right lower extremity with failed apixaban and now on Lovenox at therapeutic doses at home, congestive heart failure, vertigo, chronic kidney disease, B cell lymphoma without reoccurrence, who presented to the [facility] ED on 05/22/23 via EMS for evaluation of low blood pressure. The patient reported checking his blood pressure daily with typical values around 100/50; he reported blood pressure reading at home was 72/43. After informing his home health nurse of this finding, the patient was advised to come to the emergency department. As per the ED provider note the patient had not had any recent increased fatigue, denied chest pain or shortness of breath. EMS noted patient to be hypoxic with a saturation in the upper 80s, he was placed on oxygen and saturations were > 90%. Patient was give IV fluid in the ED and his blood pressure improved. The EKG in the ED did not show any sign of ischemia, he was in a sinus rhythm with heart rate 60s. The chest abdomen and pelvis CT did not show any acute findings or evidence of pulmonary embolus. Labs in the ED remarkable for ANC of 7.55, sodium of 130, BUN 104, creatinine 2.3, ESR 29, CRP 5.90, procalcitonin 0.5. Patient was septic, found to have UTI. His suprapubic catheter was changed. Patient was found to have a rash on legs, arms and torso with exoricated areas. Patient reported it itches and he scraches it. Patient was seen by surgery and a skin biopsy was taken from right upper arm. Patient also arrived with unstageable pressure ulcer to buttock. A wound culture was collected. A wound consult was completed. The patient was started on piperacillin tazobactam. The patient was admitted to the medical surgical floor for evaluation and management of cellulitis, sepsis, NAZARIO. Patient was seen by Dr Reeves who agreed with treatment. Patient was seen by palliative care. Patient is DNR/DNI. Patient was evaluated by PT. He should continue global strengthening and activity tolerance training. Home healht PT was added to discharge plan. Patient was found to have MRSA in his wound culture and was started on vancomycin and cefazolin. Blood cultures remained negative for 96 hours. A multitude of ointments were used on the patients buttock as well as his bilat arms, both did start healing some areas. Patient was afebrile, normotensive, he runs low SBP ~ 100, no tachycardia, afebrile, awake, alert, pleasant, cooperative. Patient is discharged back to home, stable with 7 day course of Linezolid. Patient should resume home medications. Patient should have home health nursing resumed for care of the indwelling suprapubic catheter and care for his rash and pressure injury to buttock. He should stay off his buttock as much as possible. Patient was in agreement to discharge plan. . Home Meds and New Rx's Prescriptions: New ammonium lactate 12 % Lotion 1 applic topical BID Qty: 400 1RF Rx Instructions: Apply to both arms zinc oxide 20 % Ointment 1 applic topical PRN PRNQty: 56 0RF clotrimazole 1 % Cream 1 applic topical PRN PRNQty: 45 0RF Rx Instructions: apply to excoriated area on buttock vits A and D-white pet-lanolin Ointment 1 applic topical PRN PRNQty: 56 0RF Rx Instructions: Apply to excoriated area on buttock docusate sodium [Colace] 100 mg Capsule 100 mg PO BID Qty: 60 0RF linezolid 600 mg tablet 600 mg PO BID Qty: 14 0RF Continued (DME) underpads [Bed Underpads] Pad See Rx Instructions .ROUTE .MEDSUPPLY Qty: 40 12RF Rx Instructions: As directed, for diarrhea or urinary leakage (DME) disposable gloves [Nitrile Exam Gloves] Misc See Rx Instructions .Route Qty: 100 12RF Rx Instructions: As directed, to change urinary pads and diapers (DME) Pull ups XXL See Rx Instructions .Route .MEDSUPPLY Qty: 60 11RF Rx Instructions: As directed metolazone 2.5 mg tablet 2.5 mg PO DAILY PRN (Reason: Fluid overload) Qty: 20 0RF Rx Instructions: Most call MD for permission to use when weight is over 216 at home (DME) nebulizers [facility] [place] [facility] See Rx Instructions .ROUTE .MEDSUPPLY Qty: 1 0RF Rx Instructions: As directed polyethylene glycol 3350 17 gram powder in packet 17 g PO BID PRN PRN (Reason: constipation) Qty: 100 0RF Stiolto Respimat 2.5-2.5 mcg/actuation mist 2 puff inhalation DAILY Qty: 4 12RF albuterol sulfate 90 mcg/actuation HFA aerosol inhaler 2 puff inhalation Q6H PRN (Reason: shortness of breath or wheezing) Qty: 8.5 12RF fluocinonide 0.05 % cream 1 applic topical BID Qty: 60 0RF Rx Instructions: Apply to arms and abdomen (DME) wedge pillow See Rx Instructions .Route .MEDSUPPLY Qty: 1 0RF Rx Instructions: As directed ascorbic acid (vitamin C) [Vitamin C] 500 mg tablet See Rx Instructions .ROUTE .COMPLEX Qty: 84 12RF Dose Instruction: TAKE 1 TABLET BY MOUTH THREE TIMES A DAY (DOSE INCREASE 07/09/21) Rx Instructions: TAKE 1 TABLET BY MOUTH THREE TIMES A DAY (DOSE INCREASE 07/09/21) torsemide 20 mg tablet 40 mg PO TID Qty: 540 3RF miconazole nitrate [Antifungal (miconazole)] 2 % cream 1 applic topical DAILY Qty: 28 6RF Rx Instructions: Apply under skin folds and to any affected area cholecalciferol (vitamin D3) 10 mcg (400 unit) tablet 20 mcg PO DAILY Qty: 180 3RF Rx Instructions: 800 U daily, per [facility] discharge dated 10/04/19 [facility] calcium polycarbophil [FiberCon] 625 mg tablet 1,250 mg PO DAILY Qty: 90 3RF spironolactone 25 mg tablet 25 mg PO DAILY Qty: 90 3RF ferrous sulfate 325 mg (65 mg iron) tablet See Rx Instructions .ROUTE .COMPLEX Qty: 28 11RF Dose Instruction: TAKE 1 TABLET BY MOUTH DAILY Rx Instructions: TAKE 1 TABLET BY MOUTH DAILY enoxaparin [Lovenox] 100 mg/mL syringe 100 mg subcut Q12H Qty: 30 1RF pregabalin [Lyrica] 75 mg capsule 75 mg PO BID Qty: 180 3RF acetaminophen [Tylenol] 325 mg Tablet 325 - 650 mg PO Q4H PRN PRNQty: 0 0RF potassium chloride 20 mEq tablet,ER particles/crystals 20 meq PO DAILY Discharge Instructions Instructions: Linezolid (By mouth), MRSA (Methicillin-Resistant Staphylococcus Aureus) (DC) Additional Instructions: Home Health nursing resumption of care; PT evaluation please - he has been walking while hospitalized. Take Linezolid twice a day for 7 days Apply A&D ointment, zinc ointment and clortrimazole to buttock twice a day; stay off of buttock as much as possible to help with healing Apply Ammonium lactated 12% lotion to bilateral arms until excoriation has Urinary catheter was changed Stand Alone Forms: Nursing Discharge Form Referrals: Eladio Reeves MD [ [facility] STAFF PHYSICIAN] - (They will call you with an appointment ) Renan Garcia DO [Primary Care Provider] - 06/13/23 3:30 pm (1-2 weeks) Activity:: Activity as Tolerated Equipment/Supplies:: No Equipment Needed Diet:: Heart Healthy Discharge Orders Discharge Orders: Discharge Order (Routine); Ordered 05/27/23 Ordered By: Dayanna Rodriguez Discharge Data Discharge Date/Time-TO BE ENTERED AT DEPARTURE: 05/27/23 15:23 DS: Summary Time Spent with Patient providing and/or coordinating discharge services: Greater than 30 minutes Status at Discharge Functional status at discharge: uses cane/walker Overall status at discharge: patient is progressing back to baseline Mental Status: mental status grossly normal Speech and Movement: speech and movement normal Mood: congruent mood Affect: normal affect Quality:SDOH Health Related Social Needs: No Data to Display Exam Const General: cooperative and no acute distress HENMT Mouth: moist mucous membranes Eyes Conjunctivae: conjunctival abnormality bilaterally conjunctival injection Sclera: normal sclerae Neck Neck: trachea midline Resp Auscultation: clear to auscultation bilaterally, no rales, no rhonchi and no wheezes Cardio Rate: regular rate and not tachycardic Rhythm: regular rhythm GI Palpation: soft, not firm, no guarding, no masses, not rigid and nontender Skin Rashes: rashes noted Other: Scaly, erythematous rash with superficial ulcerations, arms, back, abdomen. Decubitus ulcers bilateral buttocks with surrounding erythema and skin breakdown involving the perineum, foul-smelling odor Neuro General: patient alert, patient awake, patient oriented x3 and tone normal Extrem General: edema Laterality: bilateral Psych Appearance: grossly normal Mental Status: mental status grossly normal Speech and Movement: speech and movement normal Mood: congruent mood Affect: normal affect DS: Data Vitals/I&O Vitals and I&O: Vital Signs Temperature 36.6 C 05/27/23 07:42 Temperature Source Tympanic 05/27/23 07:42 Pulse 71 05/27/23 07:42 Pulse Rhythm Regular 05/27/23 10:46 Pulse 65 05/22/23 15:20 Respiratory Rate 20 05/27/23 07:42 Respiratory Effort Normal, Non-Labored 05/27/23 10:46 Respiratory Depth Normal 05/27/23 10:46 Respiratory Pattern Normal 05/27/23 10:46 Blood Pressure 110/59 L 05/27/23 07:42 Blood Pressure Mean 58 05/22/23 13:31 Pulse Oximetry 98 05/27/23 07:42 Oxygen Delivery Method Room Air 05/27/23 07:42 Oxygen Flow Rate 0 05/27/23 07:42 Pain Level 3 05/26/23 23:31 Comment Patient's vital signs while working with PT 05/23/23 08:30 Intake & Output 05/26/23 05/26/23 05/27/23 11:59 23:59 11:59 Intake Total 210 / 410 200 / 410 260 / 260 Output Total 750 / 750 Balance 210 / -340 -550 / -340 260 / 260 Weight 228.9 kg Intake: IV 210 / 410 200 / 410 260 / 260 Output: Urine 750 / 750 Other: Urine Color Yellow Urine Appearance Clear Clear Clear Stool Size Small Stool Characteristics Soft Voiding Methods Indwelling Catheter Data Completed and Pending Labs on day of discharge: Labs from last 24 hours 05/27/23 05/27/23 05/26/23 10:20 07:05 11:20 WBC 5.48 RBC 4.20 L Hgb 13.6 Hct 41.1 MCV 98 H MCH 32.4 MCHC 33.1 RDW 15.2 H Plt Count MPV Immature Gran % 0.9 Neutrophils % 65.6 Lymphocytes % 16.2 Monocytes % 9.1 Eosinophils % 7.7 Basophils % 0.5 Nucleated RBC % 0.0 Absolute Neutrophils 3.59 Absolute Lymphocytes 0.89 L Absolute Monocytes 0.50 Absolute Eosinophils 0.42 Absolute Basophils 0.03 RBC Morphology Normal Sodium 139 Potassium 3.9 D 5.6 H D Chloride 106 Carbon Dioxide 19.1 L Anion Gap 13.9 H BUN 19 H Creatinine 1.1 Est GFR (CKD-EPI 2020) 74.04 Glucose 77 Calcium 9.4 Magnesium 1.9 Vancomycin Trough 19.5 Preliminary micro results at discharge 05/22/23 10:50 Blood Culture - Preliminary Blood NO GROWTH 96 HOURS 05/22/23 10:27 Blood Culture - Preliminary Blood NO GROWTH 96 HOURS PFSH All Active Problems (Updated 05/25/23 @ 16:34 by Dayanna Rodriguez NP) Skin excoriation (Acute) Discharge planning issues (Acute) Septic shock (Acute) Quality of life palliative care patient (Acute) UTI (urinary tract infection) (Acute) Contraindication to deep vein thrombosis (DVT) prophylaxis (Acute) Pulmonary embolism (Chronic) Sepsis (Acute) Hypotensive episode (Acute) NAZARIO (acute kidney injury) (Acute) Cellulitis (Acute) Cervical spondylosis without myelopathy (Acute) Perineal ulcer (Acute) Cervical spine arthritis (Acute) Cervical radicular pain (Acute) Viral conjunctivitis of both eyes (Acute) Hypoadrenergic postural hypotension (Acute) Dyspnea (Acute) Emphysema lung (Chronic) Conductive hearing loss, bilateral (Acute) Chronic serous otitis media, bilateral (Acute) Recurrent serous otitis media of left ear (Acute) Intertrigo (Acute) Sensorineural hearing loss, bilateral (Acute) Conductive hearing loss in right ear (Acute) Congestive heart disease (Chronic 04/15/22) unspeciied HF chronicity, type Target weight 211# Chronic kidney disease, stage 3 unspecified (Chronic) Chronic serous otitis media, right ear (Acute) Nasal vestibulitis (Acute) Mixed hearing loss, bilateral (Acute) Hearing deficit (Acute) Acute serous otitis media of right ear (Acute) Onychomycosis (Acute) Chronic Urinary retention (Acute) Nephrotic syndrome (Acute) Pancreatic lesion (Acute) Hypoattenuation seen on CT 05/09 Fluid retention (Acute) Thrombosis of right saphenous vein (Acute) Left femoral vein DVT (Acute) Anxiety and depression (Chronic) 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 (Acute) Stage IV, high risk, B cell lymphoma, NOS, with extra node involvement(bone, spinal cord,pleura) 09/09/21 ([facility] HEM/ONC) PET CT: No Active Lymphoma (Deauville score 1) Hypertrophic toenail (Acute) Anemia (Chronic) Cor pulmonale (chronic) (Chronic) Suprapubic catheter (Chronic) Incontinence of bowel (Acute) Acute kidney injury (Acute ~09/28/19) due to methotrexate therapy Weakness of both lower extremities (Acute) Hyperuricemia (Acute) Paroxysmal A-fib (Acute) Dehydration (Acute) Limited code status (Acute) Pleural effusion (Acute) Abdominal lymphadenopathy (Acute) DVT (deep venous thrombosis) (Chronic) Mediastinal adenopathy (Acute) Lung mass (Acute) COPD exacerbation (Acute) Respiratory distress (Acute) Overgrown toenails (Acute) DJD (degenerative joint disease) (Chronic) Depressive disorder (Chronic) Crohn's disease (Chronic) Self Reported Venous stasis ulcer of ankle limited to breakdown of skin (Acute) Venous stasis dermatitis of both lower extremities (Acute) Pulmonary HTN (Chronic) Mitral regurgitation (Chronic) Diastolic dysfunction (Chronic) Lymphedema of both lower extremities (Chronic) Ischemic ulcer of right ankle, limited to breakdown of skin (Acute) Smoking greater than 40 pack years (Chronic) cont on smoking cessation 08/2019 quit smoking; quit 2019 Venous insufficiency of both lower extremities (Chronic) as above Left varicocele (Acute 05/09/17) Microscopic hematuria (Acute 02/03/16) Osteoarthritis of hip (Acute 12/14/12) Right hydrocele (Acute 02/04/17) Osteoarthritis of hip (Acute 01/14/14) Total hip arthroplasty by Dr. Jose Nieves 01/14/14; Ceramic head; press fit. Mitral valve prolapse (Chronic) Microscopic hematuria (Acute) Medical History Right femoral vein DVT Hypotension Venous stasis ulcer of right lower leg with edema of right lower leg Cellulitis of right leg Housing problems Tobacco use disorder Alcohol dependence in remission Anxiety 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 Ulcer of right lower extremity Gastroesophageal reflux disease Osteoarthritis Hypercholesterolemia BPH (benign prostatic hyperplasia) Surgical History Total replacement of hip bilateral Tonsillectomy and adenoidectomy Repair of umbilical hernia Repair of inguinal hernia Bilateral EGD - MAC Colonoscopy - MAC Cholecystectomy (11/01/17) Extraction of cataract Family History Mother Breast cancer Hypertension Anxiety Father CHF (congestive heart failure) Maternal Aunt Diabetes Social History Smoking/Tobacco Use Status: Former Tobacco Use Quit Date: 08/23/19 Tobacco: How many years used: 50 Quit status: quit date established (06/29/2019) Smoking risk assessment performed?: Yes Alcohol Intake: former Year quit: 2007 Drug use: Never Substance use type: does not use Adopted: No Caregiver/Support person: Yes Foster care: No Household members: other Details: Self Housing: assisted living facility Number of Children: 0 number of grandchildren: 0 Communication Needs: None Education Level: vocational Do you need help understanding health information?: Often current occupation: Disabled Pets and animals: No Sexually active: No Do you think of yourself as: straight/heterosexual Current gender identity: male What is your relationship status?: How often do you talk on the phone with friends or family?: three or more times per week How often do you get together with friends or relatives?: decline to answer Do you belong to any clubs or organized social groups?: yes Panel score (0-1 are the most socially isolated patients): 2 What type of physical activity do you participate in: other Details: Stretching - ROM - arms and wheelchair-bound Duration: 15-30 minutes/day Frequency: 3-4 times per week Yakelin/Samaritan: Taoism Special yakelin needs: No Seatbelt use: always Drive intox or ride w/intox milk truck driver: No (Does not apply) Do you feel safe at home: Yes Do you feel safe in your relationship?: Yes Time Spent with Patient Time Spent with Patient: 45-69 minutes Time was spent: preparing to see the patient(eg.review tests), ordering medications,tests, procedures, referring, communicating with other health respiratory care technician, indepentently interpreting results, counseling the patient and care coordination
[2023-05-27 12:09] VITALS: BP 100/55; PULSE 68; RESP 16; TEMP 36.7; O2SAT 94
--- NOTE | 2023-05-27 12:31 | CMDISCH_ITS ---
Date of service: 05/27/23 Time of Service: 12:32 LACE Index Scoring Tool Questions: Length of Stay (in days): 4 - 6 Was the patient admitted via the E.D.?: Yes Comorbidities: Congestive Heart Failure, Chronic Pulmonary Disease, Any Tumor and Liver or Renal Disease E.D. Visits: 1 Answers: Total Score: 13 Risk of Readmission: High Risk Care Management Discharge Plan Reason for Hospitalization: sepsis Discharge Plan: Isra will return home with a resumption of home health services for nursing with the addition of PT as well as his caregiver support through [facility]. He will follow up with his PCP and plan of care and transport via [facility] coordinated by CM. Patient/Family Education Needs: Review discharge instructions, activity, follow up plan, limitations, discuss Ask Me Three Services Needed at Discharge: Home Health Care Services SDOH Health Related Social Needs: No Data to Display
--- NOTE | 2023-05-27 16:57 | PTTR_ITS ---
Date of service: 05/27/23 Time of Service: 11:40 PT Notes Visit Reasons: Sepsis,Hypotension,NAZARIO,Elevated BUN Inpatient Physical Therapy Treatment Note [facility] Date: 05/28/23 PRECAUTIONS: Fall, contact, activity as tolerated. SUBJECTIVE: Patient encountered long sitting in bed. Reports that LIGHT COIL WINDER Mac removed his compression socks and informed him that he should not walk with [his] legs like this. Confirmed after treatment session that LIGHT COIL WINDER Mac did not in fact discourage patient from ambulation. Patient reports that he removes his compression socks for only 15 minutes or so every 24 hour period, to change them. Education attempted that compression socks should be removed overnight, however, patient is resistant. OBJECTIVE: Long sitting in bed, agreeable to therapy as long as it doesn't involve walking. ? PAIN: none reported VITALS: monitored by nursing staff. ? BED MOBILITY/TRANSFERS? Rolling L/R: not assessed Supine-sit: not assessed ? Sit-supine: not assessed ? Sit-stand: not assessed ? Stand-sit: not assessed ? Bed-Chair: not assessed ? Chair-bed: not assessed ? Therapeutic Exercises ([id number]): Direct one-on-one instruction in therapeutic exercises to develop strength, endurance, range of motion and flexibility. ? Exercises: * ankle pumps 2x10 * heel slides 2x10 * SLR 3x5 * hip ab/adduction 3x5 * bridges 2x5 Provided skilled instruction in proper exercise performance Provided skilled manual cues to facilitate proper muscle recruitment and/or form. ASSESSMENT:? Patient would benefit from further education regarding purpose, benefits, and considerations for wearing compression garments, including that they work most efficiently when the wearer is also actively using the muscles underneath them. PLAN: Continue global strengthening per plan of care until patient is medically cleared for discharge. TREATMENT CODE/TIME: 15 minutes beginning at 11:40
== END 2023-05-27 15:23 | disposition home health service (06) | DRG 872 ==
LOC: ER 14:07 → MS 16:27
PROVIDERS: Nurse Practitioner Acute Care; Nurse Practitioner Family; Admitting Provider Internal Medicine; Emergency Provider Student in an Organized Health Care Education/Training Program; PCP Family Medicine; Visit Provider Internal Medicine
DX: N39.0 Urinary tract infection, site not specified (principal); N17.9 Acute kidney failure, unspecified; K50.90 Crohn's disease, unspecified, without complications; A41.9 Sepsis, unspecified organism; D84.9 Immunodeficiency, unspecified; L03.311 Cellulitis of abdominal wall; L98.499 Non-pressure chronic ulcer of skin of other sites with unspecified severity; H90.3 Sensorineural hearing loss, bilateral; N18.30 Chronic kidney disease, stage 3 unspecified; R65.20 Severe sepsis without septic shock; J43.9 Emphysema, unspecified; I34.0 Nonrheumatic mitral (valve) insufficiency; I48.0 Paroxysmal atrial fibrillation; I27.20 Pulmonary hypertension, unspecified; R09.02 Hypoxemia; N28.1 Cyst of kidney, acquired; K76.0 Fatty (change of) liver, not elsewhere classified; D73.89 Other diseases of spleen; I50.9 Heart failure, unspecified; Z93.51 Cutaneous-vesicostomy status; Z85.72 Personal history of non-Hodgkin lymphomas; Z79.01 Long term (current) use of anticoagulants; Z87.891 Personal history of nicotine dependence; Z86.718 Personal history of other venous thrombosis and embolism; M47.22 Other spondylosis with radiculopathy, cervical region; L89.892 Pressure ulcer of other site, stage 2; L89.320 Pressure ulcer of left buttock, unstageable; L89.310 Pressure ulcer of right buttock, unstageable; B95.62 Methicillin resistant Staphylococcus aureus infection as the cause of diseases classified elsewhere
CPT/HCPCS: 11106; 00123; 36415; 71275; 74177; 80048; 80053; 82550; 84145; 85652; 87040; 87077; 87637; 93005; 94640; 96365; 97110; 97162; 97165; 97530; 97535; 99222; 99285; 80202; 81003; 81015; 83605; 83735; 84132; 84484; 85025; 86140; 87070; 87086; 87186; 87205; 93010; 94664; 99223; 99232; 99233; 99239; J0690; J1650; J2543; J3372; J3490

== ENCOUNTER 2023-05-25 17:37 | Outpatient (REF) | payer MEDICARE, MEDICAID, SELFPAY ==
--- NOTE | 2023-05-25 16:50 | SKI_PTH ---
PATIENT: Isra Mao V LOC: [facility] U#:[id number] AGE/SX: 68/M ROOM: RE05/25/[address]: Andrew Carpenter MD : [id number] BED: DIS: 05/25/2023 SPEC #: [id number] RECD: 05/25/23 18:25 STATUS: MISTY REQ #: [id number] JANELL: 05/25/23 16:[address]: Andrew Carpenter DEPT: Surgical Specimen RECD BY: Aurelia Trejo ENTERED: 05/25/23 18:26 SP TYPE: MILAGRO OTHR DR: Renan Garcia DO Tissues: 1 - SKIN BIOPSY(SHAVE/PUNCH) Procedures: SKIN LEVEL 4 SPECIAL STAIN 1 Comments: [id number]
== END 2023-05-25 17:38 | disposition home or self-care (01) ==
LOC: LBN 17:37
PROVIDERS: PCP Family Medicine; Visit Provider Surgery
DX: L30.8 Other specified dermatitis (principal)
CPT/HCPCS: 88305; 88312

== ENCOUNTER → 2023-06-03 14:12 | Outpatient (BNVA) | payer MEDICARE, MEDICAID, SELFPAY | PROVIDERS: PCP Family Medicine; Referring Provider Family Medicine; Visit Provider Urology | DX: R33.8 Other retention of urine (principal); Z93.59 Other cystostomy status | CPT/HCPCS: 99213 ==

== ENCOUNTER 2023-06-04 13:43 | Inpatient (IN) | payer MEDICARE, MEDICAID, SELFPAY ==
[2023-06-04] VITALS (38 sets, daily range): BP systolic 86–103; BP diastolic 38–72; PULSE 67–83; RESP 16–20; TEMP 35.8–36.8; O2SAT 88–98
--- NOTE | 2023-06-04 14:15 | DI.RAD_ITS ---
Exam(s) XR FEMUR LT EXAM: XR FEMUR LT CLINICAL HISTORY: fall leg pain. TECHNIQUE: 2D digital imaging was performed of the left femur. Four images were obtained. AP and lat eral views were obtained. COMPARISON: CR RT HIP COMPLETE AP PELVIS from 07/22/2014 FINDINGS: BONES: No acute fracture is present. No bony destructive lesion is seen. The patient has a left total hip replacement which appears in good position. The bones are osteopenic. SOFT TISSUE: Normal. IMPRESSION: No acute fracture or dislocation. DATA REPOSITORY: RADIATION DOSE DELIVERED:
--- NOTE | 2023-06-04 14:15 | DI.CT_ITS ---
Exam(s) CT HEAD CERV SPINE FACIAL WO EXAM: CT HEAD CERV SPINE FACIAL WO CLINICAL HISTORY: fall right sided facial injury. TECHNIQUE: Imaging Protocol: Axial computed tomography images with coronal and sagittal reformatted images were created and reviewed COMPARISON: No exams were available for comparison FINDINGS: CT Head: Ventricles and Extra axial spaces: Normal in size and morphology for the patient's age. Hemorrhage: None. Cerebral parenchyma: No acute territorial infarct. No mass effect. There are areas of decreased att enuation in the white matter suggesting chronic microvascular ischemic disease. Midline shift: None. Brainstem/Cerebellum: Normal. Calvarium: Normal. Visualized Paranasal sinuses/Mastoids: Clear. Soft Tissues: Unremarkable. CT Face: Facial Bones: No definite fracture is noted in facial bones. There is a lucency seen in the midline in the maxilla suggestive of an odontogenic cyst. Sinuses and Mastoids: Unremarkable. Globes, extraocular muscles, optic nerves and retrobulbar fat: Normal. Upper aerodigestive tract: Normal. Mandible and bilateral temporomandibular joints: Normal. Soft tissues: Normal. CT Cervical Spine: Bones: No acute fracture or subluxation. Age-appropriate degenerative changes are seen in the spine. Soft Tissues: Unremarkable. Lung Apices: Emphysematous changes are seen in the lung apices. IMPRESSION: 1. No acute intracranial process. 2. No acute fracture or subluxation in the cervical spine. 3. No acute facial fracture. RADIATION DOSE DELIVERED: 1,965.39mGy.cm Total DLP DATA REPOSITORY: All CT scans at this facility are submitted to the National Radiology Data Registry (NRDR) Dose Index Registry (DIR) with the [employer] (ACR). RADIATION OPTIMIZATION: All CT scans at this facility use at least one of these dose optimization te chniques: automated exposure control; mA and/or kV adjustment per patient size (includes targeted exa ms where dose is matched to clinical indication); or iterative reconstruction.
--- NOTE | 2023-06-04 14:15 | DI.CT_ITS ---
Exam(s) CT LUMBAR SPINE SI JOINTS WO EXAM: CT LUMBAR SPINE SI JOINTS WO CLINICAL HISTORY: fall left sided weakness. TECHNIQUE: Imaging Protocol: Axial computed tomography images with coronal and sagittal reformatted images were created and reviewed. COMPARISON: No exams were available for comparison FINDINGS: Bones: No fractures or dislocations are seen. There is a left convex curvature of the lumbar spine wi th the apex at L3. Age-appropriate moderate degenerative changes are seen throughout the lumbar spin e. The sacroiliac joints are unremarkable. Soft tissues: There are calcifications seen within the spleen which likely reflect prior granulomatou s disease. There is asymmetric enlargement of the left iliacus muscle with infiltration in the surro unding soft tissues. The findings are suspicious for intramuscular hematoma. IMPRESSION: 1. Findings suspicious for hematoma involving the left iliacus muscle. 2. No acute fracture or subluxation. RADIATION DOSE DELIVERED: 1,003.4mGy.cm Total DLP 1,003.4mGy.cm Total DLP DATA REPOSITORY: All CT scans at this facility are submitted to the National Radiology Data Registry (NRDR) Dose Index Registry (DIR) with the [employer] ([employer]). RADIATION OPTIMIZATION: All CT scans at this facility use at least one of these dose optimization te chniques: automated exposure control; mA and/or kV adjustment per patient size (includes targeted exa ms where dose is matched to clinical indication); or iterative reconstruction.
[2023-06-04 14:47] LABS: Abs Immature Grans 0.03 10^3/uL (0.0-0.06); Absolute Basophil Count 0.01 10^3/uL (0.0-0.2); Absolute Eosinophil Count 0.24 10^3/uL (0.0-0.7); Absolute Lymphocyte Count 0.71 10^3/uL (1.2-3.4); Absolute Monocyte Count 0.64 10^3/uL (0.1-0.8); Absolute Neutrophil Count 6.21 10^3/uL (1.2-6.7); Basophils % 0.1; Eosinophils % 3.1; HCT 28.7 % (40.0-50.0); HGB 9.8 g/dL (13.5-17.5); Immature Grans % 0.4; Lymphocytes % 9.1; MCH 32.6 pg (27.0-33.0); MCHC 34.1 % (32.0-36.0); MCV 95 fL (80-95); MPV 9.9 fL (8.0-11.0); Monocytes % 8.2; Neutrophils % 79.1; Platelet Count 146 10^3/uL (130-400); RBC 3.01 10^6/uL (4.36-5.78); RDW 15.2 % (11.8-14.1); RDW-SD 52.5 fL; WBC 7.84 10^3/uL (4.4-10.8)
--- NOTE | 2023-06-04 15:06 | ED.GENADUL_ITS ---
HPI General Mode of arrival: EMS . Date/Time Provider Initiated Documentation: 06/04/23 13:49 . Limitations to Documentation: no limitations . Information obtained by: patient and RN notes reviewed . History of Present Illness 68 year old M presents to the emergency department with the chief complaint of Left leg pain, back pain, described as moderate, Quality is described as aching, and is localized to the left and lower extremity. Patient reports no radiation. Patient started experiencing this day(s) (4) Patient did receive the following treatments prior to arrival, other (Acetami nophen) Related Data Home Medications Medication Instructions Recorded Confirmed acetaminophen 325 mg tablet 325 - 650 mg (1 - 2 x 325 mg) PO 07/02/19 06/04/23 (Tylenol) Q4H PRN PRN #0 tabs nebulizers #1 ea 02/05/21 06/04/23 disposable gloves (Nitrile Exam #100 ea 10/08/21 06/04/23 Gloves) underpads (Bed Underpads) #40 ea 10/08/21 06/04/23 polyethylene glycol 3350 17 gram 17 g PO BID PRN PRN constipation 05/25/22 06/04/23 oral powder packet #100 ea ascorbic acid (vitamin C) 500 mg See Rx Instructions .Route 06/25/22 06/04/23 tablet (Vitamin C) .COMPLEX #84 tabs albuterol sulfate 90 mcg/actuation 2 puff inhalation Q6H PRN 10/01/22 06/04/23 aerosol inhaler shortness of breath or wheezing #8.5 grams tiotropium 2.5 mcg-olodaterol 2.5 2 puff inhalation DAILY #4 grams 10/01/22 06/04/23 mcg/actuation mist for inhalation (Stiolto Respimat) torsemide 20 mg tablet 40 mg (2 x 20 mg) PO TID #540 tabs 11/01/22 06/04/23 miconazole nitrate 2 % topical 1 applic topical DAILY #28 grams 01/28/23 06/04/23 cream (Antifungal (miconazole)) calcium polycarbophil 625 mg 1,250 mg (2 x 625 mg) PO DAILY #90 02/22/23 06/04/23 tablet (FiberCon) tabs cholecalciferol (vitamin D3) 10 20 mcg (2 x 10 mcg (400 unit)) PO 02/22/23 06/04/23 mcg (400 unit) tablet DAILY #180 tabs spironolactone 25 mg tablet 25 mg PO DAILY #90 tabs 03/03/23 06/04/23 Pull ups #60 ea 04/05/23 06/04/23 ferrous sulfate 325 mg (65 mg See Rx Instructions .Route 04/21/23 06/04/23 iron) tablet .COMPLEX #28 tabs wedge pillow #1 ea 05/03/23 06/04/23 enoxaparin 100 mg/mL subcutaneous 100 mg subcut Q12H #30 mL 05/13/23 06/04/23 syringe (Lovenox) pregabalin 75 mg capsule (Lyrica) 75 mg PO BID #180 caps 05/16/23 06/04/23 potassium chloride 20 mEq 20 meq PO DAILY 05/24/23 06/04/23 tablet,extended release(part/cryst) ammonium lactate 12 % lotion 1 applic topical BID #400 grams 05/27/23 06/04/23 clotrimazole 1 % topical cream 1 applic topical PRN PRN #45 grams 05/27/23 06/04/23 docusate sodium 100 mg capsule 100 mg PO BID #60 caps 05/27/23 06/04/23 (Colace) linezolid 600 mg tablet 600 mg PO BID #14 tabs 05/27/23 06/04/23 vitamins A and D-white 1 applic topical PRN PRN #56 grams 05/27/23 06/04/23 petrolatum-lanolin topical ointment zinc oxide 20 % topical ointment 1 applic topical PRN PRN #56 grams 05/27/23 06/04/23 fluocinonide 0.05 % topical cream 1 applic topical BID #60 grams 06/02/23 06/04/23 metolazone 2.5 mg tablet 2.5 mg PO DAILY PRN Fluid overload 06/02/23 06/04/23 #20 tabs Previous Rx's Medication Instructions Recorded acetaminophen 325 mg tablet 325 - 650 mg (1 - 2 x 325 mg) PO 07/02/19 (Tylenol) Q4H PRN PRN #0 tabs nebulizers #1 ea 02/05/21 disposable gloves (Nitrile Exam #100 ea 10/08/21 Gloves) underpads (Bed Underpads) #40 ea 10/08/21 polyethylene glycol 3350 17 gram 17 g PO BID PRN PRN constipation 05/25/22 oral powder packet #100 ea ascorbic acid (vitamin C) 500 mg See Rx Instructions .Route 06/25/22 tablet (Vitamin C) .COMPLEX #84 tabs albuterol sulfate 90 mcg/actuation 2 puff inhalation Q6H PRN 10/01/22 aerosol inhaler shortness of breath or wheezing #8.5 grams tiotropium 2.5 mcg-olodaterol 2.5 2 puff inhalation DAILY #4 grams 10/01/22 mcg/actuation mist for inhalation (Stiolto Respimat) torsemide 20 mg tablet 40 mg (2 x 20 mg) PO TID #540 tabs 11/01/22 miconazole nitrate 2 % topical 1 applic topical DAILY #28 grams 01/28/23 cream (Antifungal (miconazole)) calcium polycarbophil 625 mg 1,250 mg (2 x 625 mg) PO DAILY #90 02/22/23 tablet (FiberCon) tabs cholecalciferol (vitamin D3) 10 20 mcg (2 x 10 mcg (400 unit)) PO 02/22/23 mcg (400 unit) tablet DAILY #180 tabs spironolactone 25 mg tablet 25 mg PO DAILY #90 tabs 03/03/23 Pull ups #60 ea 04/05/23 ferrous sulfate 325 mg (65 mg See Rx Instructions .Route 04/21/23 iron) tablet .COMPLEX #28 tabs wedge pillow #1 ea 05/03/23 enoxaparin 100 mg/mL subcutaneous 100 mg subcut Q12H #30 mL 05/13/23 syringe (Lovenox) pregabalin 75 mg capsule (Lyrica) 75 mg PO BID #180 caps 05/16/23 ammonium lactate 12 % lotion 1 applic topical BID #400 grams 05/27/23 clotrimazole 1 % topical cream 1 applic topical PRN PRN #45 grams 05/27/23 docusate sodium 100 mg capsule 100 mg PO BID #60 caps 05/27/23 (Colace) linezolid 600 mg tablet 600 mg PO BID #14 tabs 05/27/23 vitamins A and D-white 1 applic topical PRN PRN #56 grams 05/27/23 petrolatum-lanolin topical ointment zinc oxide 20 % topical ointment 1 applic topical PRN PRN #56 grams 05/27/23 fluocinonide 0.05 % topical cream 1 applic topical BID #60 grams 06/02/23 metolazone 2.5 mg tablet 2.5 mg PO DAILY PRN Fluid overload 06/02/23 #20 tabs Allergies Allergy/AdvReac Type Severity Reaction Status Date / Time levofloxacin [From Levaquin] AdvReac Intermediate purpura Verified 06/04/23 13:58 silicone AdvReac Intermediate Hives; Rash Verified 06/04/23 13:58 Sulfa (Sulfonamide AdvReac Intermediate Itching Verified 06/04/23 13:58 Antibiotics) Seasonal Allegies Allergy Intermediate Runny nose Uncoded 06/04/23 13:58 General Stated Complaint: Fall/Non TraumaCriteria DARRELL: 3 Review of Systems Constitutional Constitutional: Denies frequent falls, Denies headache(s), Reports malaise and Reports weakness ENT Ears, Nose, Mouth, and Throat: Denies headache(s) Cardiovascular Cardiovascular: Denies chest pain, Denies syncope and Denies dyspnea Respiratory Respiratory: Denies dyspnea Musculoskeletal Musculoskeletal: Reports as per HPI, Reports back pain (Chronic), Denies numbness, Reports radiating pain into limb and Denies tingling Neurologic Neurologic: Denies syncope, Denies frequent falls, Denies headache(s), Denies numbness, Denies tingling and Reports weakness Exam Const General: cooperative, no acute distress and not ill appearing Orientation: alert, awake and oriented x3 HENMT Head: no Sierra's sign, hematoma right temporal, no raccoon eyes and No periorbital ecchymosis Ears: hearing grossly normal bilaterally General nose exam: external nose normal Face and sinus: normal facial exam Mouth: moist mucous membranes Resp Effort & Inspection: normal respiratory effort, able to speak in complete sentences and no respiratory distress Cardio Rate: regular rate Rhythm: regular rhythm Heart Sounds: S1 normal and S2 normal Back/Spine/Pelvis Thoracic/Lumbar Spine: paraspinal tenderness and lumbar spinal tenderness Pelvis: buttock tenderness and sciatic notch tenderness Skin General skin exam: no rashes or lesions noted Neuro General: patient alert, patient awake, patient oriented x3, moves all extremities and no focal motor deficits Sensory Exam: no sensory deficits noted Extrem General: edema Laterality: bilateral Left lower extremity: hip/thigh Details: tenderness Location: of the proximal upper leg Location: anteriorly Course Vital Signs Vital signs: Vital Signs Temperature 36.2 C L 06/04/23 13:44 Pulse 80 06/04/23 13:44 Respiratory Rate 18 06/04/23 13:44 Blood Pressure 102/38 L 06/04/23 13:44 Pulse Oximetry 95 06/04/23 13:44 Temperature 36.2 C L 06/04/23 13:44 Temperature Source Skin 06/04/23 13:44 Pulse 80 06/04/23 13:44 Respiratory Rate 18 06/04/23 13:44 Blood Pressure 102/38 L 06/04/23 13:44 Pulse Oximetry 95 06/04/23 13:44 Oxygen Delivery Method Room Air 06/04/23 13:44 Oxygen Flow Rate 0 06/04/23 13:44 Pain Level 5 06/04/23 13:44 Lab/Test Results Lab/Test Results: Laboratory Tests Range/Units 06/04/23 14:38 WBC (4.4-10.8) 10^3/uL 7.84 RBC (4.36-5.78) 10^6/uL 3.01 L Hgb (13.5-17.5) g/dL 9.8 L Hct (40.0-50.0) % 28.7 L MCV (80-95) fL 95 MCH (27.0-33.0) pg 32.6 MCHC (32.0-36.0) % 34.1 RDW (11.8-14.1) % 15.2 H Plt Count (130-400) 10^3/uL 146 MPV (8.0-11.0) fL 9.9 Immature Gran % 0.4 Neutrophils % 79.1 Lymphocytes % 9.1 Monocytes % 8.2 Eosinophils % 3.1 Basophils % 0.1 Nucleated RBC % (0.0-0.3) % 0.0 Absolute Neutrophils (1.2-6.7) 10^3/uL 6.21 Absolute Lymphocytes (1.2-3.4) 10^3/uL 0.71 L Absolute Monocytes (0.1-0.8) 10^3/uL 0.64 Absolute Eosinophils (0.0-0.7) 10^3/uL 0.24 Absolute Basophils (0.0-0.2) 10^3/uL 0.01 Medical Decision Making Patient presenting to the emergency department via EMS after home health evaluation. Home health concerned due to patient having fall, inability to transfer himself at home, and some slight increase of left leg weakness and generalized weakness. Patient was recently admitted to the hospital for cellulitis, hypotension, acute kidney injury. Patient has significant past medical history of stage IV aggressive, high risk, B-cell lymphoma, with extranodal involvement (bone, spinal cord, pleura) , chronic back pain secondary to radiation, right-sided DVT, left femoral vein DVT, anticoagulated, chronic kidney disease, suprapubic catheter, COPD, degenerative joint disease, wheelchair use secondary to chronic back pain. Patient reports that he is mostly having left leg/thigh discomfort radiating into his back, denies any syncope, headache, or focal neurological deficits. Physical exam shows small hematoma to the right forehead, neuro intact, left leg tenderness mainly to the proximal thigh and diffuse lower spine tenderness. There is some perceived weakness on the left but will admit that both legs are weak. There is bilateral pitting edema. Patient is hypotensive on review of vital signs, afebrile, otherwise noncontributory exam. Will plan on checking patient's labs, CT imaging of head face and neck due to fall and being on anticoagulation, and will perform radiological imaging of the back and left femur. Given hypotension will give fluid bolus to see if this helps. Reviewed patient's vital signs and does show a slight anemia but nonemergent, sodium slightly low at 133, chloride 95, anion gap of 12 with BUN of 77 and creatinine of 2.8 with a GFR of 24. This is significantly worse compared to when patient was discharged 5 days ago. Will continue fluids. Labs otherwise nondiagnostic. Head and neck CT imaging showed no acute findings. Left femur shows no acute fracture, CT of lumbar spine does show possible acute or subacute hematoma of left iliacus muscle otherwise unchanged from previous comparison studies. Given that patient cannot safely be at home, does have signs from acute trauma along with return of hypotension and acute renal injury will speak with hospitalist in regards to admission of patient for physical therapy and continued fluids. Spoke with hospitalist who is in agreement to have patient admitted for physical therapy, continued fluids, and monitoring given failure to perform ADLs at home and no support beyond occasional home health. Patient is in agreement with this plan of care. Patient did state some increase of pain so 4 mg of morphine was given to see if this would help with discomfort. Lab Data Lab results reviewed: Yes I reviewed the patient's lab results. Quality:[facility] Health Related Social Needs: No Data to Display PFSH All Active Problems (Updated 06/04/23 @ 16:39 by Michel Trivedi MD) Hematoma (Acute) Fall (Acute) Hypotension (Acute) Acute on chronic renal insufficiency (Acute) Muscle weakness (generalized) (Acute) Atopic dermatitis (Acute) Pulmonary embolism (Chronic) Cellulitis (Acute) Cervical spondylosis without myelopathy (Acute) Perineal ulcer (Acute) Cervical spine arthritis (Acute) Cervical radicular pain (Acute) Viral conjunctivitis of both eyes (Acute) Hypoadrenergic postural hypotension (Acute) Dyspnea (Acute) Conductive hearing loss, bilateral (Acute) Chronic serous otitis media, bilateral (Acute) Recurrent serous otitis media of left ear (Acute) Intertrigo (Acute) Sensorineural hearing loss, bilateral (Acute) Conductive hearing loss in right ear (Acute) Congestive heart disease (Chronic 04/15/22) unspeciied HF chronicity, type Target weight 211# Chronic kidney disease, stage 3 unspecified (Chronic) Chronic serous otitis media, right ear (Acute) Nasal vestibulitis (Acute) Mixed hearing loss, bilateral (Acute) Hearing deficit (Acute) Acute serous otitis media of right ear (Acute) Onychomycosis (Acute) Chronic Urinary retention (Acute) Nephrotic syndrome (Acute) Pancreatic lesion (Acute) Hypoattenuation seen on CT 05/09 Fluid retention (Acute) Thrombosis of right saphenous vein (Acute) Left femoral vein DVT (Acute) Anxiety and depression (Chronic) 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 (Acute) Stage IV, high risk, B cell lymphoma, NOS, with extra node involvement(bone, spinal cord,pleura) 09/09/21 ([facility] [place] HEM/ONC) PET CT: No Active Lymphoma (Deauville score 1) Hypertrophic toenail (Acute) Anemia (Chronic) Cor pulmonale (chronic) (Chronic) Suprapubic catheter (Chronic) Incontinence of bowel (Acute) Acute kidney injury (Acute ~09/28/19) due to methotrexate therapy Weakness of both lower extremities (Acute) Hyperuricemia (Acute) Paroxysmal A-fib (Acute) Dehydration (Acute) Limited code status (Acute) Pleural effusion (Acute) Abdominal lymphadenopathy (Acute) DVT (deep venous thrombosis) (Chronic) Mediastinal adenopathy (Acute) Lung mass (Acute) COPD exacerbation (Acute) Respiratory distress (Acute) Overgrown toenails (Acute) DJD (degenerative joint disease) (Chronic) Depressive disorder (Chronic) Crohn's disease (Chronic) Self Reported Venous stasis ulcer of ankle limited to breakdown of skin (Acute) Venous stasis dermatitis of both lower extremities (Acute) Pulmonary HTN (Chronic) Mitral regurgitation (Chronic) Diastolic dysfunction (Chronic) Lymphedema of both lower extremities (Chronic) Ischemic ulcer of right ankle, limited to breakdown of skin (Acute) Smoking greater than 40 pack years (Chronic) cont on smoking cessation 08/2019 quit smoking; quit 2019 Venous insufficiency of both lower extremities (Chronic) as above Left varicocele (Acute 05/09/17) Microscopic hematuria (Acute 02/03/16) Osteoarthritis of hip (Acute 12/14/12) Right hydrocele (Acute 02/04/17) Osteoarthritis of hip (Acute 01/14/14) Total hip arthroplasty by Dr. Jose Nieves 01/14/14; Ceramic head; press f it. Mitral valve prolapse (Chronic) Microscopic hematuria (Acute) Medical History Emphysema lung Right femoral vein DVT Hypotension Venous stasis ulcer of right lower leg with edema of right lower leg Cellulitis of right leg Housing problems Tobacco use disorder Alcohol dependence in remission Anxiety 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 Ulcer of right lower extremity Gastroesophageal reflux disease Osteoarthritis Hypercholesterolemia BPH (benign prostatic hyperplasia) Surgical History Total replacement of hip bilateral Tonsillectomy and adenoidectomy Repair of umbilical hernia Repair of inguinal hernia Bilateral EGD - MAC Colonoscopy - MAC Cholecystectomy (11/01/17) Extraction of cataract Family History Mother Breast cancer Hypertension Anxiety Father CHF (congestive heart failure) Maternal Aunt Diabetes Social History Smoking/Tobacco Use Status: Former Tobacco Use Quit Date: 08/23/19 Tobacco: How many years used: 50 Quit status: quit date established (06/29/2019) Smoking risk assessment performed?: Yes Alcohol Intake: former Year quit: 2007 Drug use: Never Substance use type: does not use Adopted: No Caregiver/Support person: Yes Foster care: No Household members: other Details: Self Housing: apartment Number of Children: 0 number of grandchildren: 0 Communication Needs: None Education Level: vocational Do you need help understanding health information?: Often current occupation: Disabled Pets and animals: No Sexually active: No Do you think of yourself as: straight/heterosexual Current gender identity: male What is your relationship status?: How often do you talk on the phone with friends or family?: three or more times per week How often do you get together with friends or relatives?: decline to answer Do you belong to any clubs or organized social groups?: yes Panel score (0-1 are the most socially isolated patients): 2 What type of physical activity do you participate in: other Details: Stretching - ROM - arms and wheelchair-bound Duration: 15-30 minutes/day Frequency: 3-4 times per week Yakelin/Orthodoxy: Hindu Special yakelin needs: No Seatbelt use: always Drive intox or ride w/intox hog driver: No (Does not apply) Do you feel safe at home: Yes Do you feel safe in your relationship?: Yes Discharge Plan Disposition Patient Disposition: Admit to [facility] Discharge Details Clinical Impression: Muscle weakness (generalized), Acute on chronic renal insufficiency, Hypotension, Fall Admit Date/Time: 06/04/23 16:27 Admit Provider: Michel Trivedi Attending Provider: Michel Trivedi Primary Care Provider: Renan Garcia ED Provider: Melvin Snyder Discharge Data Discharge Date/Time-TO BE ENTERED AT DEPARTURE: 06/04/23 17:15
[2023-06-04 15:07] LABS: ALT 45 U/L (16-63); AST 48 U/L (15-37); Albumin 3.1 g/dL (3.4-5.0); Alkaline Phosphatase 91 U/L (46-116); BUN 77 mg/dL (7-18); Bilirubin, Total 0.4 mg/dL (0.2-1.0); CREATININE 2.8 mg/dL (0.70-1.30); Calcium 9.7 mg/dL (8.5-10.1); Chloride 95 mmol/L (98-107); Estimated GFR 24.13 (mL/min/1.73m2); Glucose 112 mg/dL (74-106); Magnesium 1.9 mg/dL (1.8-2.4); Potassium 4.3 mmol/L (3.5-5.1); Sodium 133 mmol/L (136-145); Total Protein 7.3 g/dL (6.4-8.2)
[2023-06-04] MEDS: Normal Saline 500 ML IV (15:31)
--- NOTE | 2023-06-04 15:35 | DI.VRAD_ITS ---
PROCEDURE INFORMATION: Exam: CT Head Without Contrast Exam date and time: 06/04/2023 3:00 PM Age: 68 years old Clinical indication: Other: Fall, right side facial injury TECHNIQUE: Imaging protocol: Computed tomography of the head without contrast. COMPARISON: MR BRAIN WO 07/02/2019 4:00 PM FINDINGS: Brain: There are bilateral periventricular white matter hypodensities consistent with chronic ischemic small vessel disease. Cerebral ventricles: No ventriculomegaly. Paranasal sinuses: Visualized sinuses are unremarkable. No fluid levels. Mastoid air cells: Visualized mastoid air cells are well aerated. Bones/joints: Unremarkable. No acute fracture. Soft tissues: Unremarkable. IMPRESSION: No intracranial posttraumatic changes. PROCEDURE INFORMATION: Exam: CT Maxillofacial Without Contrast Exam date and time: 06/04/2023 3:00 PM Age: 68 years old Clinical indication: Other: Fall, right side facial injury TECHNIQUE: Imaging protocol: Computed tomography of the face without contrast. COMPARISON: MR BRAIN WO 07/02/2019 4:00 PM FINDINGS: Orbital cavities: Post bilateral cataract surgery. Bones/joints: See Dental finding. No acute fracture or dislocation. Paranasal sinuses: Normal. No air-fluid levels. Mastoid air cells: There is partial opacification of the right mastoid air cells. Soft tissues: Unremarkable. Dental: There is a lytic lesion in the central maxilla maxillary measuring 1.6 x 1.6 cm, suggestive of an odontogenic keratocyst. IMPRESSION: No posttraumatic changes in the facial bones. PROCEDURE INFORMATION: Exam: CT Cervical Spine Without Contrast Exam date and time: 06/04/2023 3:00 PM Age: 68 years old Clinical indication: Other: Fall, right side facial injury TECHNIQUE: Imaging protocol: Computed tomography of the cervical spine without contrast. COMPARISON: MR CERVICAL SPINE WO 01/25/2023 2:18 PM FINDINGS: Bones/joints: There moderate degenerative disease of the cervical spine most pronounced at C6-C7 with anterior and posterior osteophyte disc complexes causing mild thecal sac compression and mild narrowing of both neural foramina. Vertebral segmentation anomaly at T1-T2 level. There is moderate degenerative at the anterior C1-C2 articulation. Lungs: There are bilateral apical predominant emphysematous changes. There is mild anterolisthesis of C3 over C4. Vasculature: There are bilateral carotid calcifications. Soft tissues: There are nuchal ligament calcifications. IMPRESSION: No posttraumatic changes in the cervical spine. Dictated and Authenticated by: Quang Anders MD. Ordering:NAVNEET Charles MD
--- NOTE | 2023-06-04 15:42 | DI.VRAD_ITS ---
PROCEDURE INFORMATION: Exam: CT Lumbar Spine Without Contrast Exam date and time: 06/04/2023 3:10 PM Age: 68 years old Clinical indication: Other: Fall, right side weakness TECHNIQUE: Imaging protocol: Computed tomography of the lumbar spine without contrast. COMPARISON: CT LUMBAR SPINE RECONS 06/29/2019 5:45 AM FINDINGS: Bones/joints: There is mild lumbar levoscoliosis with multilevel spondylosis and stenosis. There is some disc space irregularity at the L2-L3 level, more mature in appearance when compared with previous study. No evidence to suggest active disease. Suspect resolved discitis. There is mild stenosis at this level. Mild stenosis L3-L4 and L4-L5. Lungs: Mild bibasilar atelectasis. Liver: There are low-density hepatic lesions, indeterminate. Spleen: Splenic calcifications are seen consistent with old granulomatous change. Vasculature: Mild atherosclerotic change present in the vasculature. Soft tissues: There is asymmetric thickening of the left iliacus muscle with increased attenuation and some soft tissue stranding consistent with hematoma. These changes are new since previous exam. IMPRESSION: 1. Findings consistent with acute or possible subacute hematoma left iliacus muscle. 2. Multilevel spondylosis and stenosis, not significantly changed from previous exam. Dictated and Authenticated by: Deanna Chau MD. Ordering:NAVNEET Charles MD
--- NOTE | 2023-06-04 15:44 | DI.VRAD_ITS ---
PROCEDURE INFORMATION: Exam: XR Left Femur Exam date and time: 06/04/2023 3:18 PM Age: 68 years old Clinical indication: Other: Fall leg pain TECHNIQUE: Imaging protocol: Radiologic exam of the left femur. Views: 2 views. COMPARISON: CT CHEST PE ABD PELVIS W 05/22/2023 12:19 PM FINDINGS: Bones/joints: Status post left hip prosthesis. Bone mineralization appears decreased. Bony alignment is anatomic. No evidence for fracture. Soft tissues: Unremarkable. IMPRESSION: No evidence for fracture. Dictated and Authenticated by: Deanna Chau MD. Ordering:NAVNEET Charles MD
[2023-06-04] MEDS: MORPHine 4 MG/ML SYR IVP (16:27)
--- NOTE | 2023-06-04 16:27 | HPE_ITS ---
Date of service: 06/04/23 Time of Service: 16:27 Assessment and Plan Assessment and plan (1) Acute on chronic renal insufficiency: Status: Acute Assessment and plan: - Baseline creatinine previous discharge 1.1, up to 2.8 -Likely due to combination of ongoing diuretic use poor p.o. intake -Status post 1 L normal saline in the emergency department -Will continue IV fluid rehydration with 100 mL normal saline per hour (2) Hypotension: Status: Acute Assessment and plan: - Likely cause of acute on chronic renal insufficiency as noted above -Continue fluid resuscitation as noted above (3) Anemia: Status: Chronic Assessment and plan: - Baseline hemoglobin around 12, down to 9.8 in emergency department -This may be secondary to left iliac is hematoma noted on the CT -Will continue to monitor hemoglobin level (4) Hematoma: Status: Acute Assessment and plan: - As noted above (5) Congestive heart disease: Status: Chronic Assessment and plan: - History of, without acute exacerbation -Holding home diuretics due to hypotension and NAZARIO on CKD as noted above (6) 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: Status: Acute (7) Suprapubic catheter: Status: Chronic (8) COPD (chronic obstructive pulmonary disease): Status: None Assessment and plan: - Continue home inhaler regimen Qualifiers: COPD type: emphysema Emphysema type: centrilobular Qualified Code(s): J43.2 - Centrilobular emphysema History of Present Illness History of Present Illness Chief Complaint: Left leg and back pain Narrative: 68-year-old wheelchair dependent male with history large-base history of emphysema, patient with baseline stage IV B-cell lymphoma, chronic back pain secondary to radiation, right-sided DVT, left femoral DVT on anticoagulation, CKD stage III, suprapubic catheter, COPD presents to the emergency department after having left thigh leg and back pain. Patient states that he fell out of his wheelchair a few days ago and hit his head but did not lose consciousness. States that since that time he was able to transfer to his wheelchair but was not able to transfer out of his wheelchair and he was found by home health today. He also states that he is experiencing weakness but denies any headache, lightheadedness, dizziness, chills, fever, nausea vomiting or diarrhea. In the emergency department the patient was noted as appearing weak, initially having blood pressure of 88/39 for which she was given 1 L normal saline and had improvement of his blood pressure up to 90/51. CBC was notable for hemoglobin of 9.8 which is decreased from day of discharge and 13.6, and CMP showed a BUN of 77 and a creatinine of 3.8 both of which are increased from day of discharge of 19 and 1.1. Upon reviewing patient's discharge summary it appears that his home diuretic regimen was continued at discharge, and additionally patient states that he has had poor p.o. intake. Had cervical spine and face and lumbar spine CT did not show any acute findings except for lumbar spine CT showed possible hematoma of left iliac us muscle. At which time emergency room PA paged hospitalist for admission for patient with acute on chronic kidney injury likely combination of dehydration and iatrogenic due to diuretic regimen as well as anemia potentially due to left iliac us muscle hematoma. Review of Systems All systems reviewed & are unremarkable except as noted in HPI and below PFSH All Active Problems (Updated 06/04/23 @ 16:39 by Michel Trivedi MD) Hematoma (Acute) Fall (Acute) Hypotension (Acute) Acute on chronic renal insufficiency (Acute) Muscle weakness (generalized) (Acute) Atopic dermatitis (Acute) Pulmonary embolism (Chronic) Cellulitis (Acute) Cervical spondylosis without myelopathy (Acute) Perineal ulcer (Acute) Cervical spine arthritis (Acute) Cervical radicular pain (Acute) Viral conjunctivitis of both eyes (Acute) Hypoadrenergic postural hypotension (Acute) Dyspnea (Acute) Conductive hearing loss, bilateral (Acute) Chronic serous otitis media, bilateral (Acute) Recurrent serous otitis media of left ear (Acute) Intertrigo (Acute) Sensorineural hearing loss, bilateral (Acute) Conductive hearing loss in right ear (Acute) Congestive heart disease (Chronic 04/15/22) unspeciied HF chronicity, type Target weight 211# Chronic kidney disease, stage 3 unspecified (Chronic) Chronic serous otitis media, right ear (Acute) Nasal vestibulitis (Acute) Mixed hearing loss, bilateral (Acute) Hearing deficit (Acute) Acute serous otitis media of right ear (Acute) Onychomycosis (Acute) Chronic Urinary retention (Acute) Nephrotic syndrome (Acute) Pancreatic lesion (Acute) Hypoattenuation seen on CT 05/09 Fluid retention (Acute) Thrombosis of right saphenous vein (Acute) Left femoral vein DVT (Acute) Anxiety and depression (Chronic) 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 (Acute) Stage IV, high risk, B cell lymphoma, NOS, with extra node involvement(bone, spinal cord,pleura) 09/09/21 ([facility] HEM/ONC) PET CT: No Active Lymphoma (Deauville score 1) Hypertrophic toenail (Acute) Anemia (Chronic) Cor pulmonale (chronic) (Chronic) Suprapubic catheter (Chronic) Incontinence of bowel (Acute) Acute kidney injury (Acute ~09/28/19) due to methotrexate therapy Weakness of both lower extremities (Acute) Hyperuricemia (Acute) Paroxysmal A-fib (Acute) Dehydration (Acute) Limited code status (Acute) Pleural effusion (Acute) Abdominal lymphadenopathy (Acute) DVT (deep venous thrombosis) (Chronic) Mediastinal adenopathy (Acute) Lung mass (Acute) COPD exacerbation (Acute) Respiratory distress (Acute) Overgrown toenails (Acute) DJD (degenerative joint disease) (Chronic) Depressive disorder (Chronic) Crohn's disease (Chronic) Self Reported Venous stasis ulcer of ankle limited to breakdown of skin (Acute) Venous stasis dermatitis of both lower extremities (Acute) Pulmonary HTN (Chronic) Mitral regurgitation (Chronic) Diastolic dysfunction (Chronic) Lymphedema of both lower extremities (Chronic) Ischemic ulcer of right ankle, limited to breakdown of skin (Acute) Smoking greater than 40 pack years (Chronic) cont on smoking cessation 08/2019 quit smoking; quit 2019 Venous insufficiency of both lower extremities (Chronic) as above Left varicocele (Acute 05/09/17) Microscopic hematuria (Acute 02/03/16) Osteoarthritis of hip (Acute 12/14/12) Right hydrocele (Acute 02/04/17) Osteoarthritis of hip (Acute 01/14/14) Total hip arthroplasty by Dr. Jose Nieves 01/14/14; Ceramic head; press fit. Mitral valve prolapse (Chronic) Microscopic hematuria (Acute) Medical History Emphysema lung Right femoral vein DVT Hypotension Venous stasis ulcer of right lower leg with edema of right lower leg Cellulitis of right leg Housing problems Tobacco use disorder Alcohol dependence in remission Anxiety 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 Ulcer of right lower extremity Gastroesophageal reflux disease Osteoarthritis Hypercholesterolemia BPH (benign prostatic hyperplasia) Surgical History Total replacement of hip bilateral Tonsillectomy and adenoidectomy Repair of umbilical hernia Repair of inguinal hernia Bilateral EGD - MAC Colonoscopy - MAC Cholecystectomy (11/01/17) Extraction of cataract Family History Mother Breast cancer Hypertension Anxiety Father CHF (congestive heart failure) Maternal Aunt Diabetes Social History Smoking/Tobacco Use Status: Former Tobacco Use Quit Date: 08/23/19 Tobacco: How many years used: 50 Quit status: quit date established (06/29/2019) Smoking risk assessment performed?: Yes Alcohol Intake: former Year quit: 2007 Drug use: Never Substance use type: does not use Adopted: No Caregiver/Support person: Yes Foster care: No Household members: other Details: Self Housing: assisted living facility Number of Children: 0 number of grandchildren: 0 Communication Needs: None Education Level: vocational Do you need help understanding health information?: Often current occupation: Disabled Pets and animals: No Sexually active: No Do you think of yourself as: straight/heterosexual Current gender identity: male What is your relationship status?: How often do you talk on the phone with friends or family?: three or more times per week How often do you get together with friends or relatives?: decline to answer Do you belong to any clubs or organized social groups?: yes Panel score (0-1 are the most socially isolated patients): 2 What type of physical activity do you participate in: other Details: Stretching - ROM - arms and wheelchair-bound Duration: 15-30 minutes/day Frequency: 3-4 times per week Yakelin/Yarsani: Buddhist Special yakelin needs: No Seatbelt use: always Drive intox or ride w/intox local company 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 truck driver: No (Does not apply) Do you feel safe at home: Yes Do you feel safe in your relationship?: Yes Meds Allergies and Home Medications Allergies Allergy/AdvReac Type Severity Reaction Status Date / Time levofloxacin [From Levaquin] AdvReac Intermediate purpura Verified 06/04/23 13:58 silicone AdvReac Intermediate Hives; Rash Verified 06/04/23 13:58 Sulfa (Sulfonamide AdvReac Intermediate Itching Verified 06/04/23 13:58 Antibiotics) Seasonal Allegies Allergy Intermediate Runny nose Uncoded 06/04/23 13:58 Home Medications Medication Instructions Recorded Confirmed Type acetaminophen 325 mg tablet 325 - 650 mg (1 - 2 x 325 mg) PO 07/02/19 06/04/23 Rx (Tylenol) Q4H PRN PRN #0 tabs nebulizers #1 ea 02/05/21 06/04/23 Rx disposable gloves (Nitrile Exam #100 ea 10/08/21 06/04/23 Rx Gloves) underpads (Bed Underpads) #40 ea 10/08/21 06/04/23 Rx polyethylene glycol 3350 17 gram 17 g PO BID PRN PRN constipation 05/25/22 06/04/23 Rx oral powder packet #100 ea ascorbic acid (vitamin C) 500 mg See Rx Instructions .Route 06/25/22 06/04/23 Rx tablet (Vitamin C) .COMPLEX #84 tabs albuterol sulfate 90 mcg/actuation 2 puff inhalation Q6H PRN 10/01/22 06/04/23 Rx aerosol inhaler shortness of breath or wheezing #8.5 grams tiotropium 2.5 mcg-olodaterol 2.5 2 puff inhalation DAILY #4 grams 10/01/22 06/04/23 Rx mcg/actuation mist for inhalation (Stiolto Respimat) torsemide 20 mg tablet 40 mg (2 x 20 mg) PO TID #540 tabs 11/01/22 06/04/23 Rx miconazole nitrate 2 % topical 1 applic topical DAILY #28 grams 01/28/23 06/04/23 Rx cream (Antifungal (miconazole)) calcium polycarbophil 625 mg 1,250 mg (2 x 625 mg) PO DAILY #90 02/22/23 06/04/23 Rx tablet (FiberCon) tabs cholecalciferol (vitamin D3) 10 20 mcg (2 x 10 mcg (400 unit)) PO 02/22/23 06/04/23 Rx mcg (400 unit) tablet DAILY #180 tabs spironolactone 25 mg tablet 25 mg PO DAILY #90 tabs 03/03/23 06/04/23 Rx Pull ups #60 ea 04/05/23 06/04/23 Rx ferrous sulfate 325 mg (65 mg See Rx Instructions .Route 04/21/23 06/04/23 Rx iron) tablet .COMPLEX #28 tabs wedge pillow #1 ea 05/03/23 06/04/23 Rx enoxaparin 100 mg/mL subcutaneous 100 mg subcut Q12H #30 mL 05/13/23 06/04/23 Rx syringe (Lovenox) pregabalin 75 mg capsule (Lyrica) 75 mg PO BID #180 caps 05/16/23 06/04/23 Rx potassium chloride 20 mEq 20 meq PO DAILY 05/24/23 06/04/23 History tablet,extended release(part/cryst) ammonium lactate 12 % lotion 1 applic topical BID #400 grams 05/27/23 06/04/23 Rx clotrimazole 1 % topical cream 1 applic topical PRN PRN #45 grams 05/27/23 06/04/23 Rx docusate sodium 100 mg capsule 100 mg PO BID #60 caps 05/27/23 06/04/23 Rx (Colace) linezolid 600 mg tablet 600 mg PO BID #14 tabs 05/27/23 06/04/23 Rx vitamins A and D-white 1 applic topical PRN PRN #56 grams 05/27/23 06/04/23 Rx petrolatum-lanolin topical ointment zinc oxide 20 % topical ointment 1 applic topical PRN PRN #56 grams 05/27/23 06/04/23 Rx fluocinonide 0.05 % topical cream 1 applic topical BID #60 grams 06/02/23 06/04/23 Rx metolazone 2.5 mg tablet 2.5 mg PO DAILY PRN Fluid overload 06/02/23 06/04/23 Rx #20 tabs Exam Narrative Exam Narrative: Chronically ill-appearing gentleman laying in bed in no acute distress, ANO x 4, heart regular rhythm, lungs clear to auscultation bilaterally, significant +3 to +4 bilateral lower extremity pitting edema to the mid thighs Results Labs 06/04/23 14:38 06/04/23 14:38 Labs: Laboratory Results - last 24 hr 06/04/23 14:38 WBC 7.84 RBC 3.01 L Hgb 9.8 L Hct 28.7 L MCV 95 MCH 32.6 MCHC 34.1 RDW 15.2 H Plt Count 146 MPV 9.9 Immature Gran % 0.4 Neutrophils % 79.1 Lymphocytes % 9.1 Monocytes % 8.2 Eosinophils % 3.1 Basophils % 0.1 Nucleated RBC % 0.0 Absolute Neutrophils 6.21 Absolute Lymphocytes 0.71 L Absolute Monocytes 0.64 Absolute Eosinophils 0.24 Absolute Basophils 0.01 Sodium 133 L Potassium 4.3 Chloride 95 L Carbon Dioxide 26.0 Anion Gap 12.0 H BUN 77 H Creatinine 2.8 H Est GFR (CKD-EPI 2020) 24.13 Glucose 112 H Calcium 9.7 Magnesium 1.9 Total Bilirubin 0.4 AST 48 H ALT 45 Alkaline Phosphatase 91 Total Protein 7.3 Albumin 3.1 L Last Vital Signs Temp 97.2 F L 06/04/23 13:44 Pulse 77 06/04/23 15:00 Resp 18 06/04/23 13:44 BP 90/51 L 06/04/23 15:00 Pulse Ox 90 L 06/04/23 15:00 Time Spent Time spent with Patient: >75 minutes Time was spent: preparing to see the patient(eg.review tests), obtaining and/or reviewing separately otained hiistory, ordering medications,tests, procedures, referring, communicating with other health health care attorney, indepentently interpreting results, counseling the patient and care coordination
[2023-06-04] MEDS: Normal Saline 1,000 ML 75 ML IV (18:44)
[2023-06-04] MEDS: Normal Saline Flush 10 ML SYR IVP (20:14)
[2023-06-04] MEDS: Pregabalin 25 MG CAP 75 MG PO (20:14)
[2023-06-05 03:46] VITALS: BP 130/80; PULSE 81; RESP 18; TEMP 36.7; O2SAT 91
[2023-06-05 06:46] LABS: HCT 26.9 % (40.0-50.0); HGB 8.9 g/dL (13.5-17.5); MCHC 33.1 % (32.0-36.0); MCV 97 fL (80-95); MPV 10.1 fL (8.0-11.0); Platelet Count 136 10^3/uL (130-400); RBC 2.78 10^6/uL (4.36-5.78); RDW 15.5 % (11.8-14.1); RDW-SD 54.5 fL; WBC 6.72 10^3/uL (4.4-10.8)
[2023-06-05 07:01] LABS: Anion Gap 11.1 mmol/L (3-11); BUN 74 mg/dL (7-18); CO2 25.9 mmol/L (21.0-32.0); CREATININE 2.6 mg/dL (0.70-1.30); Chloride 102 mmol/L (98-107); Estimated GFR 26.37 (mL/min/1.73m2); Glucose 98 mg/dL (74-106); Potassium 4.2 mmol/L (3.5-5.1); Sodium 139 mmol/L (136-145)
[2023-06-05] MEDS: Pregabalin 25 MG CAP 75 MG PO ×2 (07:58→19:37)
[2023-06-05] MEDS: Normal Saline 1,000 ML 75 ML IV (07:58)
[2023-06-05] MEDS: Ferrous Sulfate 325 MG TAB PO (08:00)
[2023-06-05] MEDS: Normal Saline Flush 10 ML SYR IVP ×2 (08:00→19:37)
[2023-06-05 08:07] VITALS: BP 104/62; PULSE 89; RESP 19; TEMP 36.6; O2SAT 90
[2023-06-05] MEDS: Tiotropium/Olodaterol 10 PUFF INHALER 2 PUFF IH (08:32)
[2023-06-05] MEDS: Acetaminophen 325 MG TAB PO ×2 (09:02→18:34)
--- NOTE | 2023-06-05 09:15 | INITIAL_ITS ---
Date of service: 06/05/23 Time of Service: 09:15 Care Management Initial Assmt Initial Assessment REASON FOR HOSPITALIZATION:: acute on chronic renal insufficiency PREVIOUS FUNCTIONAL STATUS/SOCIAL/FAMILY SUPPORTS:: Isra lives alone in an apartment at the [facility]. He does not have any biological children but is close to two adopted children, Mary and Tay, that he has known since . He communicates with Mary regularly. Isra attends Adult day at [place] 3 days a week. [facility]. Isra has [facility] and receives twice weekly visits from nursing and twice daily visits from LNAs. His community facilitator is Breann Major and his sister Mariluz is his DPOA. Isra uses [employer] for all transportation. CURRENT FUNCTIONAL STATUS:: Isra was sitting up in a chair visiting with his surrogate daughter Mary and her children. He seemed to be in good spirits but stated that he is not feeling great. He has BLE edema and stated that he also is retaining fluid in his belly. Isra was readmitted with NAZARIO on CKD. His BUN and creatinine went from 19 to 77 and 1.1 to 2.8, respectively. Per provider, this may be due to ongoing use of diuretics and poor po intake. Isra informed that he fell at home from his wheelchair. He was not able to transfer out of his w/c independently. He indicated that he is very concerned about that and hopes that it does not continue to happen. Prior to discharge on 05/27/23, Isra was able to ambulate 25-30 feet with his FWW with standby assist. This morning he required use of a steady Lift to get up to the chair. Another PT evaluation has been ordered today. ADVANCE DIRECTIVES:: On file. 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 Isra will follow up with his PCP and plan of care and transport via RCT coordinated by CM. CM will follow and continue to assess for discharge needs. [facility] All Active Problems (Updated 06/04/23 @ 16:39 by Michel Trivedi MD) Hematoma (Acute) Fall (Acute) Hypotension (Acute) Acute on chronic renal insufficiency (Acute) Muscle weakness (generalized) (Acute) Atopic dermatitis (Acute) Pulmonary embolism (Chronic) Cellulitis (Acute) Cervical spondylosis without myelopathy (Acute) Perineal ulcer (Acute) Cervical spine arthritis (Acute) Cervical radicular pain (Acute) Viral conjunctivitis of both eyes (Acute) Hypoadrenergic postural hypotension (Acute) Dyspnea (Acute) Conductive hearing loss, bilateral (Acute) Chronic serous otitis media, bilateral (Acute) Recurrent serous otitis media of left ear (Acute) Intertrigo (Acute) Sensorineural hearing loss, bilateral (Acute) Conductive hearing loss in right ear (Acute) Congestive heart disease (Chronic 04/15/22) unspeciied HF chronicity, type Target weight 211# Chronic kidney disease, stage 3 unspecified (Chronic) Chronic serous otitis media, right ear (Acute) Nasal vestibulitis (Acute) Mixed hearing loss, bilateral (Acute) Hearing deficit (Acute) Acute serous otitis media of right ear (Acute) Onychomycosis (Acute) Chronic Urinary retention (Acute) Nephrotic syndrome (Acute) Pancreatic lesion (Acute) Hypoattenuation seen on CT 05/09 Fluid retention (Acute) Thrombosis of right saphenous vein (Acute) Left femoral vein DVT (Acute) Anxiety and depression (Chronic) 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 (Acute) Stage IV, high risk, B cell lymphoma, NOS, with extra node involvement(bone, spinal cord,pleura) 09/09/21 ([facility] HEM/ONC) PET CT: No Active Lymphoma (Deauville score 1) Hypertrophic toenail (Acute) Anemia (Chronic) Cor pulmonale (chronic) (Chronic) Suprapubic catheter (Chronic) Incontinence of bowel (Acute) Acute kidney injury (Acute ~09/28/19) due to methotrexate therapy Weakness of both lower extremities (Acute) Hyperuricemia (Acute) Paroxysmal A-fib (Acute) Dehydration (Acute) Limited code status (Acute) Pleural effusion (Acute) Abdominal lymphadenopathy (Acute) DVT (deep venous thrombosis) (Chronic) Mediastinal adenopathy (Acute) Lung mass (Acute) COPD exacerbation (Acute) Respiratory distress (Acute) Overgrown toenails (Acute) DJD (degenerative joint disease) (Chronic) Depressive disorder (Chronic) Crohn's disease (Chronic) Self Reported Venous stasis ulcer of ankle limited to breakdown of skin (Acute) Venous stasis dermatitis of both lower extremities (Acute) Pulmonary HTN (Chronic) Mitral regurgitation (Chronic) Diastolic dysfunction (Chronic) Lymphedema of both lower extremities (Chronic) Ischemic ulcer of right ankle, limited to breakdown of skin (Acute) Smoking greater than 40 pack years (Chronic) cont on smoking cessation 08/2019 quit smoking; quit 2019 Venous insufficiency of both lower extremities (Chronic) as above Left varicocele (Acute 05/09/17) Microscopic hematuria (Acute 02/03/16) Osteoarthritis of hip (Acute 12/14/12) Right hydrocele (Acute 02/04/17) Osteoarthritis of hip (Acute 01/14/14) Total hip arthroplasty by Dr. Jose Nieves 01/14/14; Ceramic head; press fit. Mitral valve prolapse (Chronic) Microscopic hematuria (Acute) Medical History Emphysema lung Right femoral vein DVT Hypotension Venous stasis ulcer of right lower leg with edema of right lower leg Cellulitis of right leg Housing problems Tobacco use disorder Alcohol dependence in remission Anxiety 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 Ulcer of right lower extremity Gastroesophageal reflux disease Osteoarthritis Hypercholesterolemia BPH (benign prostatic hyperplasia) Surgical History Total replacement of hip bilateral Tonsillectomy and adenoidectomy Repair of umbilical hernia Repair of inguinal hernia Bilateral EGD - MAC Colonoscopy - MAC Cholecystectomy (11/01/17) Extraction of cataract Family History Mother Breast cancer Hypertension Anxiety Father CHF (congestive heart failure) Maternal Aunt Diabetes Social History Smoking/Tobacco Use Status: Former Tobacco Use Quit Date: 08/23/19 Tobacco: How many years used: 50 Quit status: quit date established (06/29/2019) Smoking risk assessment performed?: Yes Alcohol Intake: former Year quit: 2007 Drug use: Never Substance use type: does not use Adopted: No Caregiver/Support person: Yes Foster care: No Household members: other Details: Self Housing: apartment Number of Children: 0 number of grandchildren: 0 Communication Needs: None Education Level: vocational Do you need help understanding health information?: Often current occupation: Disabled Pets and animals: No Sexually active: No Do you think of yourself as: straight/heterosexual Current gender identity: male What is your relationship status?: How often do you talk on the phone with friends or family?: three or more times per week How often do you get together with friends or relatives?: decline to answer Do you belong to any clubs or organized social groups?: yes Panel score (0-1 are the most socially isolated patients): 2 What type of physical activity do you participate in: other Details: Stretching - ROM - arms and wheelchair-bound Duration: 15-30 minutes/day Frequency: 3-4 times per week Yakelin/Yazidism: Oriental Orthodox Special yakelin needs: No Seatbelt use: always Drive intox or ride w/intox skidder driver: No (Does not apply) Do you feel safe at home: Yes Do you feel safe in your relationship?: Yes Readmission Within the Past 30 Days Yes or No: Yes Date of First Admission Date of 1st Admission: 05/22/23 Date of this Admission Date of Admission: 06/04/23 This admission was: Through ED Office Visit Since 1st Admission Have you seen your PCP in the office since discharge?: Yes Date of PCP Appointment: 06/02/23 Had an appointment Been Scheduled?: Yes Date of Scheduled Appointment: 06/02/23 I. Interview patient and/or Family Difficulty reaching your doctor or getting an office appt?: No Have you had trouble purchasing/ or taking medication?: No Have you had trouble with getting meals at home?: No Did you feel ready for discharge when you left the last time: Yes Were services received that you thought were set up on disch: Yes What services were received?: [facility] and caregivers If the patient had a VNA ordered Did the patient have a VNA order?: Yes Did you call the VNA before you came?: No (Home health found him in his wheelchair) Did the VNA tell you to come to the hospital?: Yes ED visits How many ED visits in the past 12 months: 2 SDOH(Care Management) Screening Will the Patient Participate in the Screening?: Yes Do you worry about having a steady place to live?: no In the past 12 months, have you had to go without electric, gas, oil or water in your home?: no Have you or anyone in your house had to go without enough food to eat?: no Has lack of transportation kept you from medical appointments or from doing things needed for daily living?: no Has anyone in your support network made you feel unsafe for any reason?: no
--- NOTE | 2023-06-05 10:05 | W.PM.PROGNOT ---
Date of Service Date of service: 06/05/23 Time of Service: 10:05 Assessment and Plan Assessment and plan (1) Acute on chronic renal insufficiency: Status: Acute Assessment and plan: - Baseline creatinine previous discharge 1.1, up to 2.8 -Likely due to combination of ongoing diuretic use poor p.o. intake -Status post 1 L normal saline in the emergency department -Had been on normal saline at 75 mL an hour overnight 06/04 -Creatinine on the a.m. of 06/05/2023 down to 2.6 -Patient continues to have significant lower extremity edema -Given improvement and creatinine we will discontinue IV fluids and at this time only restart his home 20 mg torsemide 3 times daily -Will follow-up a.m. creatinine (2) Hypotension: Status: Acute Assessment and plan: - Likely cause of acute on chronic renal insufficiency as noted above -Continue fluid resuscitation as noted above (3) Anemia: Status: Chronic Assessment and plan: - Baseline hemoglobin around 12, down to 9.8 in emergency department -This may be secondary to left iliac is hematoma noted on the CT -Will continue to monitor hemoglobin level (4) Hematoma: Status: Acute Assessment and plan: - As noted above (5) Congestive heart disease: Status: Chronic Assessment and plan: - History of, without acute exacerbation -Holding home diuretics due to hypotension and NAZARIO on CKD as noted above (6) 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 He understands the plan to stop IV fluids and to slowly and incrementally restart his home diuretics to work on his significant peripheral Exam Narrative Exam Narrative: Chronically ill-appearing gentleman laying in bed in no acute distress, ANO x 4, heart regular rhythm, lungs clear to auscultation bilaterally, significant +3 to +4 bilateral lower extremity pitting edema to the mid thighs Objective Last Vital Signs Temp 97.9 F 06/05/23 08:07 Pulse 89 06/05/23 08:07 Resp 19 06/05/23 08:07 BP 104/62 06/05/23 08:07 Pulse Ox 90 L 06/05/23 08:07 Laboratory Results - last 24 hr 06/04/23 06/05/23 14:38 06:18 WBC 7.84 6.72 RBC 3.01 L 2.78 L Hgb 9.8 L 8.9 L Hct 28.7 L 26.9 L MCV 95 97 H MCH 32.6 32.0 MCHC 34.1 33.1 RDW 15.2 H 15.5 H Plt Count 146 136 MPV 9.9 10.1 Immature Gran % 0.4 Neutrophils % 79.1 Lymphocytes % 9.1 Monocytes % 8.2 Eosinophils % 3.1 Basophils % 0.1 Nucleated RBC % 0.0 Absolute Neutrophils 6.21 Absolute Lymphocytes 0.71 L Absolute Monocytes 0.64 Absolute Eosinophils 0.24 Absolute Basophils 0.01 Sodium 133 L 139 Potassium 4.3 4.2 Chloride 95 L 102 Carbon Dioxide 26.0 25.9 Anion Gap 12.0 H 11.1 H BUN 77 H 74 H Creatinine 2.8 H 2.6 H Est GFR (CKD-EPI 2020) 24.13 26.37 Glucose 112 H 98 Calcium 9.7 9.0 Magnesium 1.9 2.0 Total Bilirubin 0.4 AST 48 H ALT 45 Alkaline Phosphatase 91 Total Protein 7.3 Albumin 3.1 L Time Spent with Patient Time Spent with Patient: >50 minutes Time was spent: preparing to see the patient(eg.review tests), obtaining and/or reviewing separately otained hiistory, ordering medications,tests, procedures, referring, communicating with other health plant care worker, indepentently interpreting results, counseling the patient and care coordination
[2023-06-05 11:32] VITALS: BP 108/61; PULSE 78; RESP 17; TEMP 36.6; O2SAT 95
--- NOTE | 2023-06-05 13:55 | PT.INIE ---
PT Notes Visit Reasons: Acute on chronic kidney injury, hypotension Inpatient Physical Therapy Evaluation Date: 06/05/23 Referring Doctor: Dr. Trivedi PT Orders: PT CONSULT: limited ability to ambulate Precautions: fall, standard Patient Profile/Admitting Diagnosis: 68-year-old wheelchair dependent male with history of emphysema, stage IV B-cell lymphoma, chronic back pain secondary to radiation, right-sided DVT, left femoral DVT on anticoagulation, CKD stage III, suprapubic catheter, COPD presents to the emergency department after having left thigh leg and back pain. He reported a fall from his wheelchair prior to admission, after which he was able to get back in his chair, but then later unable to transfer. He was found by Home Health. Now admitted to acute care for management of acute on chronic renal insufficiency, hypotension and anemia. Social History/Home Situation: Lives alone [facility] apartments with a ramp to enter, rides the elevator to the second floor of the building where he lives. Receives home health assistance for 4 hours in the morning and 2 hours in the afternoon 7 days a week. Modified independent with all transfers using FWW at baseline. Uses motorized wheelchair for all mobility tasks. Goes to [employer] 3x/week (Mondays/Wednesdays/Fridays). Does his grocery shopping independently to the grocery store from across where he lives during the non-winter months. States that he was walking during his last hospitalization just a couple weeks ago, and has continued to work on walking at home with help from PT. Does not walk on his own. Equipment Owned/DME: motorized chair, FWW Subjective: Isra states that he is very weak. He is struggling with swelling in his legs, and is unsure he can stand or walk. He got up to the chair with nursing today using Steady Lift. Objective: General Observation: Sitting in chair with LEs elevated, IV in LUE, Smith catheter in place. Bilat LE edema. Mental Status: A&Ox3 Pain: baseline ROM: Right Upper Extremity: WFL Left Upper Extremity: WFL Right Lower Extremity: Knee motion allows 0-90*. Ankle motion allows 20* arc of motion. Hip flexion to 90* or greater. Left Lower Extremity: Knee motion allows 0-90*. Ankle motion allows 40* arc of motion. Hip flexion to 90* or greater. Strength: Right Upper Extremity: Shoulder flexion 4-/5. Biceps 4+/5. Triceps 4+/5. Appraisal Technician is strong and equal. Left Upper Extremity: Shoulder flexion 4-/5. Biceps 4+/5. Triceps 4+/5. Appraisal Technician is strong and equal. Right Lower Extremity: Hip flexion 3/5. Quads 3/5; functionally unable to perform SLR. HS 3-/5. Ankle DF 3-/5. Left Lower Extremity: Hip flexion 3/5. Quads 3/5; functionally unable to perform SLR. HS 3-/5. Ankle DF 3/5. Bed Mobility/Transfers: sit-stand: mod A x 2 stand-sit: mod A x 2 Gait: unable Balance: Static Sitting: good Dynamic Sitting: fair Static Standing: fair Dynamic Standing: unable Special Tests: Mobility Limitations Standardized Measure [facility] AM-PAC 6 clicks Basic Mobility Inpatient Short Form: Raw Score: 11 CMS Score: 73% Informed Consent/Education: Patient instructed in purpose of PT consult and plan of care. Treatment: Initial Evaluation (62255) Therapeutic Exercises (62211a2): Instructed in seated exercises for LE strengthening and edema management. Patient to perform 1 minute of each of the following in sequence, performed hourly during waking hours. Written instruction left on white board: ankle pumps quad sets glute sets Performed sit-stand x 3, with mod A x 3 Static standing with UE support to FWW, 10 seconds x 1, 45 seconds x 1(mod A x 2 to maintain) Assessment: Patient is a 68 year old male referred to physical therapy services for mobilization during acute care stay to manage acute on chronic renal failure. Patient presents with severe weakness and LE edema, both of which are negatively impacting his mobility, which is limited at baseline. He requires skilled PT intervention to maximize mobility and independence to allow for safe transition back home once medically stable. May require brief SNF stay vs Swing Bed if mobility isn't significantly improving. He currently demonstrates the following impairment level findings: 1. Decreased LE strength 2. Decreased UE strength 3. Decreased activity tolerance 4. LE edema 5. decreased balance Impairments are contributing to the following functional limitations: 1. unable to transfer to w/c independently 2. unable to sit-stand independently 3. unable to ambulate 4. decreased balance with high risk for future falls Patient is assessed as Moderate 78602 complexity based on the following: History: Patient is a 68 year old male with complex medical history presenting with acute on chronic mobility impairments. Complicating factors include extensive medical history, h/o falls, and baseline mobility impairments. Examination: functional limitations as noted above Presentation: evolving Decision Making: moderate complexity Goals: Goals X1 week 1. Supine-Sit : independent 2. Sit-Supine : independent 3. Sit-Stand : supervision with FWW 4. Stand-Sit : supervision with FWW 5. Bed-Chair : CGA with FWW 6. Chair-Bed CGA with FWW 7. Gait : CGA with FWW x 25' Plan of Care/Treatment Plan: 1-2x/day, 7 days/week x 1 week. Plan of care has been reviewed with the DIRECTOR PRINT providing the service under Physical Therapy direction. Initiate Physical Therapy intervention for strengthening, bed mobility, transfers, gait, stairs, balance training, use of assistive device. DISCHARGE RECOMMENDATIONS: Home with HH PT vs SNF/Swing Bed prior to returning home TREATMENT CODE/TIME: 41246, 49923 ([id number]) Please sign an return this page within 30 days if you agree with the above POC. Thank you! Physician Signature Date Kassandra Dougherty, PT, DPT [facility] All Active Problems (Updated 06/04/23 @ 16:39 by Michel Trivedi MD) Hematoma (Acute) Fall (Acute) Hypotension (Acute) Acute on chronic renal insufficiency (Acute) Muscle weakness (generalized) (Acute) Atopic dermatitis (Acute) Pulmonary embolism (Chronic) Cellulitis (Acute) Cervical spondylosis without myelopathy (Acute) Perineal ulcer (Acute) Cervical spine arthritis (Acute) Cervical radicular pain (Acute) Viral conjunctivitis of both eyes (Acute) Hypoadrenergic postural hypotension (Acute) Dyspnea (Acute) Conductive hearing loss, bilateral (Acute) Chronic serous otitis media, bilateral (Acute) Recurrent serous otitis media of left ear (Acute) Intertrigo (Acute) Sensorineural hearing loss, bilateral (Acute) Conductive hearing loss in right ear (Acute) Congestive heart disease (Chronic 04/15/22) unspeciied HF chronicity, type Target weight 211# Chronic kidney disease, stage 3 unspecified (Chronic) Chronic serous otitis media, right ear (Acute) Nasal vestibulitis (Acute) Mixed hearing loss, bilateral (Acute) Hearing deficit (Acute) Acute serous otitis media of right ear (Acute) Onychomycosis (Acute) Chronic Urinary retention (Acute) Nephrotic syndrome (Acute) Pancreatic lesion (Acute) Hypoattenuation seen on CT 05/09 Fluid retention (Acute) Thrombosis of right saphenous vein (Acute) Left femoral vein DVT (Acute) Anxiety and depression (Chronic) 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 (Acute) Stage IV, high risk, B cell lymphoma, NOS, with extra node involvement(bone, spinal cord,pleura) 09/09/21 ([facility] [place] HEM/ONC) PET CT: No Active Lymphoma (Deauville score 1) Hypertrophic toenail (Acute) Anemia (Chronic) Cor pulmonale (chronic) (Chronic) Suprapubic catheter (Chronic) Incontinence of bowel (Acute) Acute kidney injury (Acute ~09/28/19) due to methotrexate therapy Weakness of both lower extremities (Acute) Hyperuricemia (Acute) Paroxysmal A-fib (Acute) Dehydration (Acute) Limited code status (Acute) Pleural effusion (Acute) Abdominal lymphadenopathy (Acute) DVT (deep venous thrombosis) (Chronic) Mediastinal adenopathy (Acute) Lung mass (Acute) COPD exacerbation (Acute) Respiratory distress (Acute) Overgrown toenails (Acute) DJD (degenerative joint disease) (Chronic) Depressive disorder (Chronic) Crohn's disease (Chronic) Self Reported Venous stasis ulcer of ankle limited to breakdown of skin (Acute) Venous stasis dermatitis of both lower extremities (Acute) Pulmonary HTN (Chronic) Mitral regurgitation (Chronic) Diastolic dysfunction (Chronic) Lymphedema of both lower extremities (Chronic) Ischemic ulcer of right ankle, limited to breakdown of skin (Acute) Smoking greater than 40 pack years (Chronic) cont on smoking cessation 08/2019 quit smoking; quit 2019 Venous insufficiency of both lower extremities (Chronic) as above Left varicocele (Acute 05/09/17) Microscopic hematuria (Acute 02/03/16) Osteoarthritis of hip (Acute 12/14/12) Right hydrocele (Acute 02/04/17) Osteoarthritis of hip (Acute 01/14/14) Total hip arthroplasty by Dr. Jose Nieves 01/14/14; Ceramic head; press fit. Mitral valve prolapse (Chronic) Microscopic hematuria (Acute) Medical History Emphysema lung Right femoral vein DVT Hypotension Venous stasis ulcer of right lower leg with edema of right lower leg Cellulitis of right leg Housing problems Tobacco use disorder Alcohol dependence in remission Anxiety 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 Ulcer of right lower extremity Gastroesophageal reflux disease Osteoarthritis Hypercholesterolemia BPH (benign prostatic hyperplasia) Surgical History Total replacement of hip bilateral Tonsillectomy and adenoidectomy Repair of umbilical hernia Repair of inguinal hernia Bilateral EGD - MAC Colonoscopy - MAC Cholecystectomy (11/01/17) Extraction of cataract
[2023-06-05] MEDS: Torsemide 20 MG TAB 40 MG PO ×2 (14:03→19:37)
[2023-06-05 15:38] VITALS: BP 114/68; PULSE 69; RESP 18; TEMP 36.1; O2SAT 94
[2023-06-05 19:45] VITALS: BP 105/67; PULSE 69; RESP 18; TEMP 36; O2SAT 92
[2023-06-05 23:16] VITALS: BP 96/61; PULSE 66; RESP 18; TEMP 36; O2SAT 94
[2023-06-06] VITALS (7 sets, daily range): BP systolic 94–124; BP diastolic 56–72; PULSE 60–131; RESP 16–20; TEMP 35.3–36.6; O2SAT 92–99
[2023-06-06 07:07] LABS: HCT 28.4 % (40.0-50.0); HGB 9.6 g/dL (13.5-17.5); MCH 32.8 pg (27.0-33.0); MCHC 33.8 % (32.0-36.0); MCV 97 fL (80-95); MPV 10.2 fL (8.0-11.0); Platelet Count 139 10^3/uL (130-400); RBC 2.93 10^6/uL (4.36-5.78); RDW 15.5 % (11.8-14.1); RDW-SD 55.2 fL
[2023-06-06 07:20] LABS: BUN 69 mg/dL (7-18); CREATININE 1.9 mg/dL (0.70-1.30); Chloride 102 mmol/L (98-107); Estimated GFR 38.42 (mL/min/1.73m2); Glucose 120 mg/dL (74-106); Potassium 3.9 mmol/L (3.5-5.1); Sodium 140 mmol/L (136-145)
--- NOTE | 2023-06-06 09:09 | CMPROGNOTE_ITS ---
Date of service: 06/06/23 Time of Service: 09:09 Care Management Progress Note Progress Note Text Progress Note Text: S/O:Isra was sitting up in bed when CM met with him. he informed CM that he is really tired today. He stated that he slept well but just has no energy.Isra required the use of the steady lift to go from bed to chair this morning. Before he was discharged on his last admission, on 05/26/23 he was able to ambulate with a walker for 25 to 30 feet with SBA. CM asked Isra if he would consider short term rehab prior to going back home and he stated that he would consider it. At his request, referrals were sent to [facility]. A bed offer was received from [facility] and Isra has accepted it, should it still be necessary when he is ready for discharge. A: Isra is a 68 year old man admitted on 06/04/23 with NAZARIO on CKD P:Anticipate Isra will return home when medically cleared by provider. 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 Isra will follow up with his PCP and plan of care and transport via RCT coordinated by CM. CM will follow and continue to assess for discharge needs. SDOH(Care Management) Screening Will the Patient Participate in the Screening?: Yes Do you worry about having a steady place to live?: no In the past 12 months, have you had to go without electric, gas, oil or water in your home?: no Have you or anyone in your house had to go without enough food to eat?: no Has lack of transportation kept you from medical appointments or from doing things needed for daily living?: no Has anyone in your support network made you feel unsafe for any reason?: no
[2023-06-06] MEDS: Normal Saline Flush 10 ML SYR IVP ×2 (09:10→19:55)
[2023-06-06] MEDS: Docusate Sodium 100 MG CAP PO (09:10)
[2023-06-06] MEDS: Ferrous Sulfate 325 MG TAB PO (09:10)
[2023-06-06] MEDS: Pregabalin 25 MG CAP 75 MG PO ×2 (09:11→19:54)
[2023-06-06] MEDS: Torsemide 20 MG TAB 40 MG PO ×3 (09:11→19:55)
[2023-06-06] MEDS: Acetaminophen 325 MG TAB PO ×2 (09:11→13:59)
[2023-06-06] MEDS: Tiotropium/Olodaterol 10 PUFF INHALER 2 PUFF IH (09:40)
--- NOTE | 2023-06-06 12:06 | PT.INNT ---
PT Notes Visit Reasons: Acute on chronic kidney injury, hypotension Pt sleeping in bed when approached for therapy this morning, pt reports he would like to catch up with his sleep and requested to be seen after lunch.
--- NOTE | 2023-06-06 13:45 | W.PM.PROGNOT ---
Date of Service Date of service: 06/06/23 Time of Service: 13:45 Assessment and Plan Assessment and plan (1) Acute on chronic renal insufficiency: Status: Acute Assessment and plan: - Baseline creatinine previous discharge 1.1, up to 2.8 -Likely due to combination of ongoing diuretic use poor p.o. intake -Status post 1 L normal saline in the emergency department -Had been on normal saline at 75 mL an hour overnight 06/04 -Creatinine on the a.m. of 06/05/2023 down to 2.6, down to 1.9 AM 06/06 -Patient continues to have significant lower extremity edema -Given improvement and creatinine we will discontinue IV fluids and at this time only restart his home 20 mg torsemide 3 times daily -Will follow-up a.m. creatinine (2) Hypotension: Status: Acute Assessment and plan: - Likely cause of acute on chronic renal insufficiency as noted above -Continue fluid resuscitation as noted above (3) Anemia: Status: Chronic Assessment and plan: - Baseline hemoglobin around 12, down to 9.8 in emergency department -This may be secondary to left iliac is hematoma noted on the CT -Will continue to monitor hemoglobin level (4) Hematoma: Status: Acute Assessment and plan: - As noted above (5) Congestive heart disease: Status: Chronic Assessment and plan: - History of, without acute exacerbation -Holding home diuretics due to hypotension and NAZARIO on CKD as noted above (6) 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 Exam Narrative Exam Narrative: Chronically ill-appearing gentleman laying in bed in no acute distress, ANO x 4, heart regular rhythm, lungs clear to auscultation bilaterally, significantly improved bilateral lower extremity edema, now only to the knee and improved to about +1 to +2 Objective Last Vital Signs Temp 97.5 F L 06/06/23 12:11 Pulse 75 06/06/23 12:11 Resp 18 06/06/23 12:11 BP 94/59 L 06/06/23 12:11 Pulse Ox 93 06/06/23 12:11 Laboratory Results - last 24 hr 06/06/23 06:22 WBC 8.60 RBC 2.93 L Hgb 9.6 L Hct 28.4 L MCV 97 H MCH 32.8 MCHC 33.8 RDW 15.5 H Plt Count 139 MPV 10.2 Sodium 140 Potassium 3.9 Chloride 102 Carbon Dioxide 30.0 Anion Gap 8.0 BUN 69 H Creatinine 1.9 H Est GFR (CKD-EPI 2020) 38.42 Glucose 120 H Calcium 9.0 Time Spent with Patient Time Spent with Patient: >50 minutes Time was spent: preparing to see the patient(eg.review tests), obtaining and/or reviewing separately otained hiistory, ordering medications,tests, procedures, referring, communicating with other health child day care provider, indepentently interpreting results, counseling the patient and care coordination
--- NOTE | 2023-06-06 14:15 | PT.INTREAT ---
PT Notes Visit Reasons: Acute on chronic kidney injury, hypotension Date: 06/06/2023 PRECAUTIONS: Fall Standard SUBJECTIVE: Pt in recliner when approached for therapy this afternoon. pt agreeable to participating with session OBJECTIVE: Transfers going from bed to recliner using steady lift? PAIN: none reported VITALS: closely monitored by nursing Therapeutic Activities 25590h: Direct one-on-one instruction in dynamic activities to improve functional performance. ?? BED MOBILITY/TRANSFERS? Rolling L/R: not performed Supine-sit: not performed? Sit-supine: ?not performed? Sit-stand: ? mod A? Stand-sit: ?? CGA? Bed-Chair:? Steady lift ? Chair-bed: not performed Provided skilled cues and instruction on performance and technique throughout. ? ASSESSMENT:?Pt tolerated static standing activity 30secs on 1st, 45secs on 2nd, pt exhausted after standing activity and requested to stay in recliner after session. PLAN: Continue global strengthening per plan of care until patient is medically cleared for discharge. TREATMENT CODE/TIME: [id number] 2:00-2:15 (2:00-2:15pm)
[2023-06-06] MEDS: Enoxaparin 100 MG/ML SYR SC (17:08)
[2023-06-07] VITALS (12 sets, daily range): BP systolic 80–107; BP diastolic 38–61; PULSE 73–83; RESP 16–20; TEMP 36.8–37.3; O2SAT 88–94
[2023-06-07] MEDS: Enoxaparin 100 MG/ML SYR SC ×2 (05:43→17:08)
[2023-06-07 07:07] LABS: BUN 65 mg/dL (7-18); CREATININE 1.8 mg/dL (0.70-1.30); Calcium 9.1 mg/dL (8.5-10.1); Chloride 99 mmol/L (98-107); Glucose 111 mg/dL (74-106); Potassium 3.6 mmol/L (3.5-5.1); Sodium 138 mmol/L (136-145)
[2023-06-07] MEDS: Tiotropium/Olodaterol 10 PUFF INHALER 2 PUFF IH (07:52)
[2023-06-07] MEDS: Normal Saline Flush 10 ML SYR IVP ×4 (08:51→20:00)
[2023-06-07] MEDS: Ferrous Sulfate 325 MG TAB PO (08:52)
[2023-06-07] MEDS: Pregabalin 25 MG CAP 75 MG PO ×2 (08:52→19:59)
[2023-06-07] MEDS: Torsemide 20 MG TAB 40 MG PO (08:52)
[2023-06-07] MEDS: Lactated Ringers 500 ML IV (12:58)
[2023-06-07] MEDS: Acetaminophen 325 MG TAB PO ×2 (15:01→19:59)
--- NOTE | 2023-06-07 16:14 | PT.INTREAT ---
Date of service: 06/07/23 Time of Service: 11:15 PT Notes Visit Reasons: Acute on chronic kidney injury, hypotension Inpatient Physical Therapy Treatment Note [facility] Date: 06/07/23 PRECAUTIONS: Fall, standard, activity as tolerated. SUBJECTIVE: Patient reports that he requires the use of the toilet prior to participating with therapy. Expresses concern that it's gonna take a while before he is able to get walking again. OBJECTIVE: Patient is long sitting in bed, with a pillow transversely under bilateral hips/pelvis. Smith catheter in place. Agreeable to therapy. Student nurse Inocencia is present throughout session. AFTERNOON: Patient refuses therapy, stating that he is too tired and weak. RN Leeann stated the patient's bp was really soft and he should not get out of bed this afternoon. ? PAIN: denies pain VITALS: monitored by nursing staff. Therapeutic Activities ([id number]): Direct one-on-one instruction in dynamic activities to improve functional performance. ? BED MOBILITY/TRANSFERS? Rolling L/R: not assessed Supine-sit: min assist to unweight left leg so that patient is able to move it. HOB maximally raised, patient makes use of bilateral handrails. ? Sit-supine: mod-max of 3 in order to reduce shear forces on patient's fragile skin (see note below) ? Sit-stand: min assist of 1 via gait belt to STEDY lift from elevated bed. Mod assist of one via gait belt to STEDY lift from low toilet.?Stand-sit: CGA via gait belt from STEDY lift to low toilet or bed. Patient able to control descent well. Standing tolerance: patient stands within STEDY lift for 1 minute prior to sitting on the toilet and for 2.5 minutes for hygiene assistance afterward. ? While patient is standing in preparation to sit on toilet, patient's brief sticks to his skin and causes a small piece of skin to tear away. Student nurse alerts JASWINDER Bradshaw. This clinician, student nurse and RN help patient back to bed, at which point this clinician ends treatment session as JASWINDER Bradshaw needs to dress the wound. Provided skilled cues and instruction on performance and technique throughout. ASSESSMENT:?Patient tolerates therapy well, no report of pain. JASWINDER Bradshaw has requested a wound consult. PLAN: Continue global strengthening per plan of care until patient is medically cleared for discharge and has a safe discharge plan. Patient currently unable to ambulate, would not be safe at home. TREATMENT CODE/TIME: 27 minutes beginning at 11:15
[2023-06-07] MEDS: Lachydrin 12% LOTION 225 GM BTL TP ×2 (17:07→20:01)
--- NOTE | 2023-06-07 17:13 | CMPROGNOTE_ITS ---
Date of service: 06/07/23 Time of Service: 17:13 Care Management Progress Note Progress Note Text Progress Note Text: S/O: Isra was sitting up in bed when CM met with him. He stated that he does not feel ready for discharge, as he is waiting for a wound consult. Per report, he will likely be ready to transition to [facility] tomorrow, pending his wound consult. Isra is agreeable to going to [facility], but does feel strongly that he would like to have the wound consult prior to his discharge. CM will continue to follow. A: Isra is a 68 year old man admitted on 06/04/23 with NAZARIO on CKD P:Anticipate Isra will return home when medically cleared by provider. 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 Isra will follow up with his PCP and plan of care and transport via RCT coordinated by CM. CM will follow and continue to assess for discharge needs. SDOH(Care Management) Screening Will the Patient Participate in the Screening?: Yes Do you worry about having a steady place to live?: no In the past 12 months, have you had to go without electric, gas, oil or water in your home?: no Have you or anyone in your house had to go without enough food to eat?: no Has lack of transportation kept you from medical appointments or from doing things needed for daily living?: no Has anyone in your support network made you feel unsafe for any reason?: no
--- NOTE | 2023-06-07 19:53 | PGE_ITS ---
Date of Service Date of service: 06/07/23 Time of Service: 19:20 Assessment and Plan Assessment and plan (1) Left leg weakness: Status: Acute Assessment and plan: Obtain MRI lumbar spine (2) Acute on chronic renal insufficiency: Status: Acute Assessment and plan: Improving. I did hold his diuretics today and gave him fluids given hypotension. Recheck Cr in am. (3) Hypotension: Status: Acute Assessment and plan: As above (4) Anemia: Status: Chronic Assessment and plan: Acute on chronic macrocytic anemia. L thigh hematoma is possibly contributing. H/H was not checked today. Check again in am. The patient is on anticoagulation. Also, check remainder of anemia studies. (5) Hematoma: Status: Acute Assessment and plan: as above (6) Congestive heart disease: Status: Chronic Assessment and plan: Hold diuretics. Appears to be clinically dry at this time. 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 This has been in remission. (8) Suprapubic catheter: Status: Chronic Assessment and plan: Followed by outpatient urology (9) COPD (chronic obstructive pulmonary disease): Status: None Assessment and plan: Not in acute exacerbation. Continue home meds. Add pulmonary toilet as he is currently requiring 1L of O2. wean O2 as tolerated. Qualifiers: COPD type: emphysema Emphysema type: centrilobular Qualified Code(s): J43.2 - Centrilobular emphysema (10) DVT prophylaxis: Status: Acute Assessment and plan: He is on full dose anticoagulation with lovenox (11) Discharge planning issues: Status: Acute Assessment and plan: DNR/DNI PT and wound care consulted. Consider palliative care consult Subjective Subjective Interval history since last seen: Reports numbness and weakness in his LLE ever since the fall. States that it has been about 2 years since he last had an MRI of his lower back. States he would need a valium. His lower back has been hurting more since the fall. States he had had issues with constipation but had a BM today. Has a suprapubic catheter. No saddle anesthesia. Has felt tired today. Denies dizziness, CP, SOB, n/v. Exam Narrative Exam Narrative: General: a pleasant middle-aged male who has a diffuse erythematous rash whih appears to be slightly scaly HEENT: EOMI, MMM Heart: RRR, no m/r/g Lungs: CTAB Abdomen: soft, nontender, nondistended Extremities: +1 edema BLEs, symmetric Objective Last Vital Signs Temp 37.3 C 06/07/23 15:17 Pulse 81 06/07/23 19:01 Resp 16 06/07/23 19:01 BP 95/57 L 06/07/23 19:01 Pulse Ox 94 06/07/23 19:01 Laboratory Results - last 24 hr 06/07/23 06:25 Sodium 138 Potassium 3.6 Chloride 99 Carbon Dioxide 30.0 Anion Gap 9.0 BUN 65 H Creatinine 1.8 H Est GFR (CKD-EPI 2020) 41.00 Glucose 111 H Calcium 9.1 Time Spent with Patient Time Spent with Patient: 35-49 minutes Time was spent: preparing to see the patient(eg.review tests), obtaining and/or reviewing separately otained hiistory, ordering medications,tests, procedures, referring, communicating with other health medicare contact specialist, indepentently interpreting results, counseling the patient and care coordination
[2023-06-08] VITALS (7 sets, daily range): BP systolic 93–108; BP diastolic 56–62; PULSE 68–80; RESP 18–20; TEMP 36.2–37.4; O2SAT 91–94
[2023-06-08] MEDS: Enoxaparin 100 MG/ML SYR SC ×2 (05:26→17:37)
[2023-06-08 06:43] LABS: HCT 23.6 % (40.0-50.0); MCH 32.7 pg (27.0-33.0); MCHC 33.9 % (32.0-36.0); MCV 96 fL (80-95); MPV 10.9 fL (8.0-11.0); Nucleated RBC 0.3 % (0.0-0.3); Platelet Count 126 10^3/uL (130-400); RBC 2.45 10^6/uL (4.36-5.78); RDW 15.1 % (11.8-14.1); RDW-SD 53.1 fL
[2023-06-08 07:19] LABS: Absolute Neutrophil Count 6.66 10^3/uL (1.2-6.7)
[2023-06-08 07:20] LABS: Absolute Eosinophil Count 0.29 10^3/uL (0.0-0.7); Absolute Lymphocyte Count 1.57 10^3/uL (1.2-3.4); Absolute Monocyte Count 1.18 10^3/uL (0.1-0.8); Anisocytosis 1+; Diff Comment Manual Differential
[2023-06-08 07:24] LABS: Iron 44 ug/dL (65-175); Total Iron Binding Capacity 206 ug/dL (250-450); Transferrin Sat 21 % (20-55)
[2023-06-08 07:46] LABS: Anion Gap 9.5 mmol/L (3-11); BUN 68 mg/dL (7-18); CO2 31.5 mmol/L (21.0-32.0); CREATININE 1.8 mg/dL (0.70-1.30); Calcium 9.2 mg/dL (8.5-10.1); Chloride 98 mmol/L (98-107); Ferritin 899 ng/mL (26-388); Folate 8.2 ng/mL (8.6-20.0); Glucose 112 mg/dL (74-106); Potassium 3.6 mmol/L (3.5-5.1); Sodium 139 mmol/L (136-145); Vitamin B12 551 pg/mL (193-986)
[2023-06-08] MEDS: Tiotropium/Olodaterol 10 PUFF INHALER 2 PUFF IH (08:21)
--- NOTE | 2023-06-08 09:50 | PDOC.CMPRO ---
Date of service: 06/08/23 Time of Service: 09:50 Care Management Progress Note Progress Note Text Progress Note Text: S/O: Isra was sitting up in bed when CM met with him. He was scheduled to have an MRI of his lower back this morning but was only able to tolerate being in the machine for 10 minutes. He shared that he had been pre-medicated but it was not enough to help him through the test. Isra was supposed to be transferred to [facility], however a wound consult was ordered yesterday that was not done and the provider wanted to get the MRI. CM informed Isra that his discharge would likely not be postponed to wait for a wound consult since the rehab has wound nurses there.Isra will likely be discharged tomorrow to [facility] if he remains medically stable. A: Isra is a 68 year old man admitted on 06/04/23 with NAZARIO on CKD P:Anticipate Isra will be transferred to [facility] when medically cleared by provider. He will follow up with the facility provider and plan of care and transport via facility van. CM will follow and continue to assess for discharge needs. SDOH(Care Management) Screening Will the Patient Participate in the Screening?: Yes Do you worry about having a steady place to live?: no In the past 12 months, have you had to go without electric, gas, oil or water in your home?: no Have you or anyone in your house had to go without enough food to eat?: no Has lack of transportation kept you from medical appointments or from doing things needed for daily living?: no Has anyone in your support network made you feel unsafe for any reason?: no
[2023-06-08] MEDS: Lachydrin 12% LOTION 225 GM BTL TP (10:12)
[2023-06-08] MEDS: Pregabalin 25 MG CAP 75 MG PO ×2 (10:14→21:20)
[2023-06-08] MEDS: Normal Saline Flush 10 ML SYR IVP (10:14)
[2023-06-08] MEDS: Ferrous Sulfate 325 MG TAB PO (10:17)
[2023-06-08] MEDS: diazePAM 5 MG TAB PO (10:41)
--- NOTE | 2023-06-08 13:30 | PTTR_ITS ---
Date of service: 06/08/23 Time of Service: 13:34 PT Notes Visit Reasons: Acute on chronic kidney injury, hypotension Inpatient Physical Therapy Treatment Note [facility] Date: 06/08/23 PRECAUTIONS: Fall, standard, activity as tolerated. SUBJECTIVE: Patient reports being very tired, had an attempted MRI today for which he was medicated and now feels quite unsteady on his feet. Patient reports that he was unable to tolerate MRI and only lasted ten minutes. OBJECTIVE: Supine in bed. Does not wish to participate in therapy, but agrees once this clinician recruits assistance so that patient feels more confident in spite of his unsteady legs. ? PAIN: none reported VITALS: monitored by nursing staff. Therapeutic Activities ([id number]): Direct one-on-one instruction in dynamic activities to improve functional performance. ? BED MOBILITY/TRANSFERS? Rolling L/R: not assessed Supine-sit: Mod assist. Patient reports being unable to move blankets, left leg. Patient puts for 90% of the effort to move left leg, with this clinician only assisting to unweight the leg. Legs move 2-3 inches at a time; patient requires rest breaks x2 to catch his breath after the exertion of moving LE's. P atient then requires hand hold assist to pull himself up to sitting. ? Sit-supine: Max assist x2, with student nurse assisting patient's torso and this clinician lifting bilateral LE as well as both clinicians pivoting chucks pad to reduce shearing forces on patient's skin. ? Sit-stand: Min assist x2 at gait belt into STEDY lift. Patient stands for 20 seconds, 30 seconds, 30 seconds with rests in between. Final stand is just long enough for patient to sit back into bed. ? Stand-sit: CGA. Patient able to lower himself onto bed with good control. Patient reports that the control is coming nearly 100% from his upper body and the STEDY lift. ? Provided skilled cues and instruction on performance and technique throughout. ASSESSMENT:? Patient tolerates therapy well, is resting comfortably in bed at close of session. PLAN: Continue global strengthening per plan of care until patient is medically cleared for discharge. Patient will benefit from continued skilled rehab to maximize his return to function. At the time of patient's last discharge, less than a month ago, he was able to walk 30+ feet with this clinician. TREATMENT CODE/TIME: 18 minutes beginning at 13:34
[2023-06-08] MEDS: Acetaminophen 325 MG TAB PO (13:38)
--- NOTE | 2023-06-08 16:43 | PHA.REVIEW2 ---
Pharmacy Admission Review Admission Clinical Review Admission Pharmacy Review: Discharge planning issues (Acute) DVT prophylaxis (Acute) Left leg weakness (Acute) Hematoma (Acute) Fall (Acute) Hypotension (Acute) Acute on chronic renal insufficiency (Acute) Muscle weakness (generalized) (Acute) levofloxacin [From Levaquin] Adverse Reaction (Intermediate, Verified 06/04/23 13:58) purpura silicone Adverse Reaction (Intermediate, Verified 06/04/23 13:58) Hives; Rash Sulfa (Sulfonamide Antibiotics) Adverse Reaction (Intermediate, Verified 06/04/23 13:58) Itching Seasonal Allegies Allergy (Intermediate, Uncoded 06/04/23 13:58) Runny nose Resuscitation Status DNR/DNI Height 5 ft 6 in Weight 105 kg Pharmacy Admission Review Renal Dosing Renal Dosing: BUN 68 mg/dL (7-18) H 06/08/23 06:20 Creatinine 1.8 mg/dL (0.70-1.30) H 06/08/23 06:20 Medications needing adjustments: Reviewed (CrCl 45.8 mL/min) List of meds needing interventions: Current meds okay Anticoagulation Anticoagulation: Hgb 8.0 g/dL (13.5-17.5) L 06/08/23 06:20 Hct 23.6 % (40.0-50.0) L 06/08/23 06:20 Plt Count 126 10^3/uL (130-400) L 06/08/23 06:20 Creatinine 1.8 mg/dL (0.70-1.30) H 06/08/23 06:20 Therapeutic Anticoagulation: Reviewed Medications: Enoxaparin (100mg q12h) Opiate Usage Evaluate Pain Scale/Pains Meds: Reviewed (PRN morphine) Scheduled Bowel Reg ordered if on Opiates?: No (PRN docusate/Miralax) Relevant Labs Relevant Labs: Sodium 139 mmol/L (136-145) 06/08/23 06:20 Potassium 3.6 mmol/L (3.5-5.1) 06/08/23 06:20 Chloride 98 mmol/L (98-107) 06/08/23 06:20 Magnesium 2.0 mg/dL (1.8-2.4) 06/08/23 06:20 Electrolytes, C-Reactive P, ESR: Reviewed (BUN increased from 65 to 68, SCr 1.8, Hgb decreased from 9.6 to 8, glucose 112) Cardiac Review Cardiac Review: Blood Pressure 107/61 1451 Blood Pressure 95/62 1317 Blood Pressure 93/56 0720 BP, HR, EF%: Reviewed (HR/BP WNL) QTc Review QTc: Reviewed (437 06/11/23 (most recent EKG)) IV to PO Switch IV Medications: Reviewed Home Meds Home Med List reviewed: Reviewed Relevent Home Meds Not ordered & why?: Fiberlax, Vitamin D3, clotrimazole, fluocinonide, potassium, spironolactone (on hold per H+P), and zinc oxide Current Meds Current Medication Order Review: Reviewed
--- NOTE | 2023-06-08 19:15 | PGE_ITS ---
Date of Service Date of service: 06/08/23 Time of Service: 19:15 Assessment and Plan Assessment and plan (1) Left leg weakness: Status: Acute Assessment and plan: As well as acute on chronic back pain. Again try to obtain MRI lumbar spine which I plan to review with spine surgery. (2) Acute on chronic renal insufficiency: Status: Acute Assessment and plan: Improving. Diuretics remain on hold with plans to resume tomorrow. Recheck Cr in am. (3) Hypotension: Status: Resolved Assessment and plan: Latest BP is 107/61. Continue to monitor. (4) Anemia: Status: Chronic Assessment and plan: Acute on chronic macrocytic anemia. L thigh hematoma is possibly contributing. Hgb is down to 8.0. Recheck again in am. The patient is on anticoagulation. Replete folate. (5) Hematoma: Status: Acute Assessment and plan: as above (6) Congestive heart disease: Status: Chronic Assessment and plan: Hold diuretics. Appears to be clinically dry at this time. 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 This has been in remission. (8) Suprapubic catheter: Status: Chronic Assessment and plan: Followed by outpatient urology (9) COPD (chronic obstructive pulmonary disease): Status: None Assessment and plan: Not in acute exacerbation. Continue home meds. On RA today - continue to work with pulmonary toilet. Qualifiers: COPD type: emphysema Emphysema type: centrilobular Qualified Code(s): J43.2 - Centrilobular emphysema (10) DVT prophylaxis: Status: Acute Assessment and plan: He is on full dose anticoagulation with lovenox (11) Discharge planning issues: Status: Acute Assessment and plan: DNR/DNI PT and wound care consulted. C/s palliative care consult Should be on contact precautions for MRSA - discussed with clinical coordinator. Subjective Subjective Interval history since last seen: Mr Mao states that he has been blowing his nose. He denies a cough. He could not tolerate laying flat to have the MRI. He does not have so much pain when sitting up in bed, but does laying flat. He denies dizziness, CP, SOB is better and he is on RA now, denies n/v. He reiterates that the back pain and the LLE weakness are worse since his fall. Exam Narrative Exam Narrative: General: a pleasant middle-aged male who has a diffuse erythematous rash whih appears to be slightly scaly, A&Ox3, on RA, looks better than yesterday, but feels warm to touch. HEENT: EOMI, MMM Heart: RRR, no m/r/g Lungs: CTAB Abdomen: soft, nontender, nondistended Extremities: +1 edema BLEs, symmetric Objective Last Vital Signs Temp 37.0 C 06/08/23 14:51 Pulse 76 06/08/23 14:51 Resp 18 06/08/23 14:51 BP 107/61 06/08/23 14:51 Pulse Ox 93 06/08/23 14:51 Laboratory Results - last 24 hr 06/08/23 06/08/23 06/08/23 06:20 06:20 06:20 WBC 9.80 RBC 2.45 L Hgb 8.0 L Hct 23.6 L MCV 96 H MCH 32.7 MCHC 33.9 RDW 15.1 H Plt Count 126 L MPV 10.9 Immature Gran % See Differential Neutrophils % 68.0 Lymphocytes % 16.0 Monocytes % 12.0 Eosinophils % 3.0 Basophils % 1.0 Nucleated RBC % 0.3 Absolute Neutrophils 6.66 Absolute Lymphocytes 1.57 Absolute Monocytes 1.18 H Absolute Eosinophils 0.29 Absolute Basophils 0.10 RBC Morphology See Below Anisocytosis 1+ Sodium 139 Potassium 3.6 Chloride 98 Carbon Dioxide 31.5 Anion Gap 9.5 BUN 68 H Creatinine 1.8 H Est GFR (CKD-EPI 2020) 41.00 Glucose 112 H Calcium 9.2 Magnesium 2.0 Iron TIBC Transferrin % Sat Ferritin 899 H Vitamin B12 551 Cancelled Folate 8.2 L Cancelled 06/08/23 06:25 WBC RBC Hgb Hct MCV MCH MCHC RDW Plt Count MPV Immature Gran % Neutrophils % Lymphocytes % Monocytes % Eosinophils % Basophils % Nucleated RBC % Absolute Neutrophils Absolute Lymphocytes Absolute Monocytes Absolute Eosinophils Absolute Basophils RBC Morphology Anisocytosis Sodium Potassium Chloride Carbon Dioxide Anion Gap BUN Creatinine Est GFR (CKD-EPI 2020) Glucose Calcium Magnesium Iron 44 L TIBC 206 L Transferrin % Sat 21 Ferritin Vitamin B12 Folate Time Spent with Patient Time Spent with Patient: 35-49 minutes Time was spent: preparing to see the patient(eg.review tests), obtaining and/or reviewing separately otained hiistory, ordering medications,tests, procedures, referring, communicating with other health associate director career services, indepentently interpreting results, counseling the patient and care coordination
--- NOTE | 2023-06-08 21:01 | WOUNDCONS ---
Date of service: 06/08/23 Time of Service: 03:38 Wound Initial Evaluation Narrative Narrative: Patient is a 68 year old male admitted for acute on chronic renal insufficiency. Patient had been seen by this creative services writer on a previous admission of 05/22/23 for cellulitis and stage 2 pressure injury. Patient returned to his senior housing home with home health services for 5 days until the patient experienced increased weakness and fell while transferring from his electric wheelchair to his bed. Patient was then admitted on 06/04/23 and a wound consult was ordered as a follow-up. This creative services writer found the perineal groin area to be greatly improved from the last wound consult on 05/23/23. However, the previous stage 2 pressure injury has worsened, especially on the right buttock. Part of the pressure injury is unstageable due to eschar. This creative services writer found the patient supine with no pillows, nor wedges being utilized for offloading. The patient reports that it is difficult to reposition independently The patient also stated that he is most comfortable supine without wedges. The patient acknowledged that offloading is desired for wound healing. I described the worsened pressure injury on the right buttock and the patient asked, what do we do now? With further education on the importance of frequent repositioning and offloading the patient begrudgingly obliged to offloading the right buttock. All recent notes and labs were reviewed and a wound photo consent was signed by the patient. This creative services writer had positional assistance from AMANDA Navarrete and AMANDA [place]. Wound Right Buttock: Wound Type: Partial Thickness Pressure Ulcer Stage: Eschar/Unstageable Wound General Appearance: Reddened Wound Bed Greatest Portion: Red (Granulation) Wound Bed Lesser Portion: Black (Eschar) Wound Surrounding Tissue Appearance: [place] Wound Length: 10 cm Wound Width: 3 cm Wound Drainage Amount: Moderate Wound Drainage Description: Bloody Photo Photo: Treatment/Dressing Change Topicals/Ointments: Zincoxide Cleanse With: Other (Wound cleanser) Dressing Types: Gauze and Other (Non-Adherent pad) Dressing Comment: Dressing changed during visit. This creative services writer applied a thin layer of zinc oxide to reddened area. Non-adherent pad applied for protection and secured with Medipore tape. Nutrition Education Reviewed Nutrition Education: Yes Note: Patient understands the importance of eating extra protein for optimal wound healing. Patient expressed interest with vanilla Ensure as an added protein supplement. Recomendation Recomendation:: Change dressing prn if dressing becomes soiled or becomes rolled. Otherwise change dressing daily. Wash area with wound cleanser. Let dwell and pat dry. Apply thin layer of TheraHoney Gel to reddened area. Apply Sureprep protective wipe to charlene wound area. Apply non-adherent pad (due to silicone allergy) to wound and secure with Medipore tape. Physcian/Nurse Practioner Notified: Yes Treatment Time Time Total Time Spent with Patient: 60 minutes
[2023-06-08 21:21] LABS: COVID-19 PCR Negative (Negative); Influenza A PCR Negative (Negative); Influenza B PCR Negative (Negative); RSV PCR Negative (Negative)
[2023-06-08 21:26] LABS: Source Nasopharynx
[2023-06-09 03:17] VITALS: BP 100/61; PULSE 74; RESP 18; TEMP 37; O2SAT 91
[2023-06-09] MEDS: Acetaminophen 325 MG TAB PO (03:22)
[2023-06-09] MEDS: Enoxaparin 100 MG/ML SYR SC ×2 (06:06→17:22)
[2023-06-09 06:32] LABS: Abs Immature Grans 0.47 10^3/uL (0.0-0.06); Absolute Basophil Count 0.06 10^3/uL (0.0-0.2); Absolute Eosinophil Count 0.47 10^3/uL (0.0-0.7); Absolute Lymphocyte Count 1.86 10^3/uL (1.2-3.4); Absolute Monocyte Count 1.55 10^3/uL (0.1-0.8); Basophils % 0.5; Eosinophils % 4.1; HCT 23.8 % (40.0-50.0); HGB 8.1 g/dL (13.5-17.5); Immature Grans % 4.1; Lymphocytes % 16.3; MCH 32.8 pg (27.0-33.0); MCV 96 fL (80-95); MPV 10.6 fL (8.0-11.0); Monocytes % 13.6; Neutrophils % 61.4; Nucleated RBC 1.1 % (0.0-0.3); Platelet Count 157 10^3/uL (130-400); RBC 2.47 10^6/uL (4.36-5.78); RDW-SD 52.6 fL; WBC 11.39 10^3/uL (4.4-10.8)
[2023-06-09 06:36] LABS: Absolute Neutrophil Count 6.99 10^3/uL (1.2-6.7)
[2023-06-09 07:02] LABS: Anion Gap 9.6 mmol/L (3-11); BUN 53 mg/dL (7-18); CO2 27.4 mmol/L (21.0-32.0); CREATININE 1.6 mg/dL (0.70-1.30); Calcium 8.9 mg/dL (8.5-10.1); Chloride 98 mmol/L (98-107); Estimated GFR 47.23 (mL/min/1.73m2); Glucose 129 mg/dL (74-106); Magnesium 2.2 mg/dL (1.8-2.4); Potassium 3.3 mmol/L (3.5-5.1); Sodium 135 mmol/L (136-145)
[2023-06-09 07:35] VITALS: BP 104/61; PULSE 72; RESP 18; TEMP 36.6; O2SAT 90
--- NOTE | 2023-06-09 08:00 | DI.MRI_ITS ---
Exam(s) MR LUMBAR SPINE WO EXAM: MR LUMBAR SPINE WO CLINICAL HISTORY: LLE radiculopathy. TECHNIQUE: Multiplanar multisequence MRI of the Lumbar spine was performed. COMPARISON: CT CT LUMBAR SPINE SI JOINTS WO from 06/04/2023 FINDINGS: Bones: The last intervertebral disc space is designated the L5/S1 level for the numbering purpose of this examination. The vertebral body heights are well maintained. There is a left convex scoliosis of the lumbar spine. There are degenerative endplate signal changes particularly at L2-3, L3-4 and L 5-S1. Degenerative changes of the facets are seen in the lumbar spine. Cord: The conus tip ends at the T12 level. It is of normal size and signal intensity. T12-L1: No disc herniations or bulges are present. No central spinal canal or neural foraminal stenos is. L1-2: There is a diffuse disc bulge. There are degenerative changes of the facets. There is mild na rrowing of the central spinal canal and right neural foramen. There is also mild left neural foramin al stenosis. No central spinal canal or neural foraminal stenosis. L2-3: There is a small central disc herniation there are hypertrophic changes of the facets and ligam entum flavum. There is mild narrowing of the central spinal canal. There is mild right neural latonia inal stenosis. No significant left neural foraminal stenosis. L3-4: There is a diffuse disc bulge. There are degenerative changes of the facets and hypertrophy of the ligamentum flavum. The findings result in moderately severe central spinal canal stenosis. The re is [id number] bilateral neural foraminal stenosis. L4-5: There is a diffuse disc bulge. There are hypertrophic changes of the facets and ligamentum fla vum. There is moderately severe central spinal canal stenosis. There is [id number] bilateral neural foraminal stenosis. L5-S1: No disc herniations or bulges are present. There are degenerative changes of the facets. No s ignificant central spinal canal stenosis is seen. There is [id number] left neural foraminal st enosis and no significant right neural foraminal stenosis. Soft tissues: The visualized SI joints and sacrum are well maintained. There is again seen enlargemen t of the left iliacus muscle with what appears to be sequelae of a hematoma. IMPRESSION: 1. Multilevel marked degenerative changes seen in the lumbar spine resulting in central spinal canal neural foraminal stenosis as described above. 2. There is again seen what appears to be a left iliacus muscle hematoma. DATA REPOSITORY:
[2023-06-09] MEDS: Tiotropium/Olodaterol 10 PUFF INHALER 2 PUFF IH (08:08)
[2023-06-09] MEDS: Lachydrin 12% LOTION 225 GM BTL TP ×2 (08:18→21:14)
[2023-06-09] MEDS: Normal Saline Flush 10 ML SYR IVP ×3 (08:19→21:12)
[2023-06-09] MEDS: Ferrous Sulfate 325 MG TAB PO (08:19)
[2023-06-09] MEDS: Folic Acid 1 MG TAB PO (08:19)
[2023-06-09] MEDS: Pregabalin 25 MG CAP 75 MG PO ×2 (08:19→21:12)
[2023-06-09 08:40] LABS: Lab Add On Test DONE
--- NOTE | 2023-06-09 08:41 | DI.RAD_ITS ---
Exam(s) XR PORTABLE CHEST AP EXAM: XR PORTABLE CHEST AP CLINICAL HISTORY: ?PNA TECHNIQUE: 2D digital imaging was performed of the chest. One image was obtained. An AP view was ob tained. COMPARISON: CR,XR XR PORTABLE CHEST AP from 07/28/2021 FINDINGS: MEDIASTINUM: Normal. HEART: Cardiomegaly. PULMONARY VASCULATURE: Pulmonary venous congestion. LUNGS: Prominent interstitial markings throughout the lungs. This may represent interstitial edema o r pneumonia. Question of a left basilar infiltrate. No other focal consolidating infiltrates are se en. PLEURAL SPACE: No pleural effusion or pneumothorax. BONE:Within normal limits for the patient's age. Right convex curvature of the thoracic spine. OTHER FINDINGS:Normal. IMPRESSION: 1. Cardiomegaly and pulmonary venous congestion. 2. Question of a left basilar infiltrate which may represent pneumonia or atelectasis. DATA REPOSITORY: RADIATION DOSE DELIVERED:
[2023-06-09] MEDS: Potassium Chloride 20 MEQ TABCR 40 MEQ PO (08:42)
[2023-06-09] MEDS: Docusate Sodium 100 MG CAP PO (08:42)
[2023-06-09 09:17] LABS: Procalcitonin 0.4 ng/mL
--- NOTE | 2023-06-09 09:20 | CMPROGNOTE_ITS ---
Date of service: 06/09/23 Time of Service: 09:20 Care Management Progress Note Progress Note Text Progress Note Text: S/O: Isra was sitting up in bed when CM met with him. He was unable to complete his MRI yesterday and refused to have another one today. After much discussion, he agreed to try again, this time with IV Ativan and IV morphine and was able to complete the test. He has been sleeping much of the afternoon since. Isra has a bed offer at [facility] and will hopefully be able to transfer soon. His blood pressure remain on the low side but the SBP has been above 100 all day. Isra had a wound consult this morning which showed improvement in his perineal groin area, however the Stage II pressure injury has worsened, particularly on the right buttock. Part of the pressure injury is unstageable due to eschar. Per the wound consult note, Isra has been resistant to offloading efforts to relieve pressure. He was again reminded of the importance of that measure and agreed to try. A: Isra is a 68 year old man admitted on 06/04/23 with NAZARIO on CKD P:Anticipate Isra will be transferred to [facility] when medically cleared by provider. He will follow up with the facility provider and plan of care and transport via facility van. CM will follow and continue to assess for discharge needs. SDOH(Care Management) Screening Will the Patient Participate in the Screening?: Yes Do you worry about having a steady place to live?: no In the past 12 months, have you had to go without electric, gas, oil or water in your home?: no Have you or anyone in your house had to go without enough food to eat?: no Has lack of transportation kept you from medical appointments or from doing things needed for daily living?: no Has anyone in your support network made you feel unsafe for any reason?: no
[2023-06-09] MEDS: Polyethylene Glycol 3350 17 GM PACKET PO (11:22)
[2023-06-09 11:36] VITALS: BP 101/60; PULSE 63; RESP 16; TEMP 35.7; O2SAT 90
[2023-06-09 11:45] LABS: Bilirubin Negative (Negative); Blood Trace-lysed (Negative); Clarity Clear (Clear); Glucose Negative (Negative); Ketones Negative (Negative); Leukocyte Esterase Large (Negative); Nitrite Negative (Negative); Specific Gravity 1.015 (1.005-1.025); Urobilinogen 0.2 mg/dL (Up to 0.2)
[2023-06-09 12:04] LABS: Bacteria Many HPF (Negative); C & S Indicated? Yes; Crystals Negative HPF (Negative); Mucus Negative (Negative); RBC 0-2 HPF (0-2); WBC 20-50 HPF (0-5)
[2023-06-09] MEDS: LORazepam 2 MG/ML VIAL 1 MG IVP (13:56)
[2023-06-09] MEDS: MORPHine 2 MG/ML SYR IVP (13:57)
--- NOTE | 2023-06-09 16:54 | PT.INTREAT ---
Date of service: 06/09/23 Time of Service: 11:50 PT Notes Visit Reasons: Acute on chronic kidney injury, hypotension Inpatient Physical Therapy Treatment Note [facility] Date: 06/09/23 PRECAUTIONS: Fall, contact, activity as tolerated. SUBJECTIVE: Patient reports that he is loaded up, reports taking Maalox, prune juice, and at least one other medication for constipation. Reports that he is full of cramps and cannot possibly participate in therapy. Agrees to attempt to sit EOB for a few minutes. OBJECTIVE: Supine in bed. Hips flat, wound not offloaded. Patient reports that in the event of an episode of stool incontinence, he does not want there to be extra obstacles such as pillows etc in the way. ? PAIN: Yes. Reports severe abdominal cramping. Clutches abdomen with both hands several times during treatment session. VITALS: monitored by nursing staff. Therapeutic Activities ([id number]): Direct one-on-one instruction in dynamic activities to improve functional performance. ? BED MOBILITY/TRANSFERS? Rolling L/R: not assessed Supine-sit: Max assist of one, patient is unable to move the blankets off his legs. Clinician assists patient to sit up via handhold assist with simultaneous pivot of chucks pad to reduce shearing forces on patient's skin. ? Sit-supine: mod assist to raise legs into bed. Patient able to scoot himself up in bed with use of bilateral handrails and min assist at the chucks pad from this clinician. ? Sit-stand: refused. ? Provided skilled cues and instruction on performance and technique throughout. ASSESSMENT:? Patient sits EOB for <2 minutes before stating that his stomach cramps are worsening and he must lay back down. Refuses to participate further. Refuses afternoon therapy due to increased medication for another MRI causing him to feel even more unsteady today than yesterday. PLAN: Continue global strengthening per plan of care until patient is medically cleared for discharge. TREATMENT CODE/TIME: 13 minutes beginning at 11:50
[2023-06-09] MEDS: CEFEPIME 2 GM in Normal Saline 100 ML IVPB (17:22)
[2023-06-09] MEDS: Albuterol HFA 8 GM 60 PUFF INH IH (17:51)
--- NOTE | 2023-06-09 19:41 | PGE_ITS ---
Date of Service Date of service: 06/09/23 Time of Service: 17:25 Assessment and Plan Assessment and plan (1) HCAP (healthcare-associated pneumonia): Status: Acute Assessment and plan: Start vancomycin, cefepime. We know the patient to be MRSA positive. Encourage pulmonary toilet. (2) UTI (urinary tract infection): Status: Acute Assessment and plan: Insetting of a suprapubic catheter being present. Start vancomycin and cefepime. The suprapubic catheter needs to be exchanged. Supplies for this have been brought in tomorrow. (3) Left leg weakness: Status: Acute Assessment and plan: As well as acute on chronic back pain. MRI of the lumbar spine was obtained, and I plan to review this tomorrow with the spine surgeons at [facility]. He is known to them and they will have pictures for comparison. (4) Acute on chronic renal insufficiency: Status: Acute Assessment and plan: Improving. Resume diuresis. Recheck Cr in am. (5) Hypotension: Status: Chronic Assessment and plan: Monitor blood pressures with resumption of diuretics. Continue to monitor. (6) Anemia: Status: Chronic Assessment and plan: Acute on chronic macrocytic anemia. L thigh hematoma is possibly contributing. Hemoglobin is stable. Continue to monitor. The patient is on anticoagulation. Replete folate. (7) Hematoma: Status: Acute Assessment and plan: as above (8) Congestive heart disease: Status: Chronic Assessment and plan: Resume diuretics. 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 In remission. (10) Suprapubic catheter: Status: Chronic Assessment and plan: Followed by outpatient urology; does need to be exchanged given that he has a UTI now. (11) COPD (chronic obstructive pulmonary disease): Status: None Assessment and plan: He is wheezing today, so it is possible that he is having a mild exacerbation now due to the pneumonia. Consider steroids. Continue home meds. On RA today - continue to work with pulmonary toilet. Qualifiers: COPD type: emphysema Emphysema type: centrilobular Qualified Code(s): J43.2 - Centrilobular emphysema (12) DVT prophylaxis: Status: Acute Assessment and plan: He is on full dose anticoagulation with lovenox (13) Discharge planning issues: Status: Acute Assessment and plan: DNR/DNI PT and wound care consulted. Positive care consulted. On contact precautions. Subjective Subjective Interval history since last seen: Mr. Mao had a lot of pain today and was very anxious during his MRI. He had to have IV medications to get through it. He has a UTI, and his suprapubic catheter supplies not available at our facility. Hopefully they will be brought in tomorrow. He is saturating 90% on room air and has been wheezing. There is evidence of pneumonia on his chest x-ray. He agrees to stay through the weekend . We are starting antibiotics on him today. No other complaints that are new today. His left leg continues to be weak and he is back hurts. He has been afebrile. No dizziness, chest pain, shortness of breath, nausea, vomiting. He is constipated. Exam Narrative Exam Narrative: General: a pleasant middle-aged male who has a diffuse erythematous rash which appears to be slightly scaly, A&Ox3, on RA, looks tired HEENT: EOMI, MMM Heart: RRR, no m/r/g Lungs: Wheezing on expiration bilaterally Abdomen: soft, nontender, nondistended : Has a suprapubic catheter, urine appears cloudy Extremities: +1 edema BLEs, symmetric Objective Last Vital Signs Temp 35.7 C L 06/09/23 11:36 Pulse 63 06/09/23 11:36 Resp 16 06/09/23 11:36 BP 101/60 06/09/23 11:36 Pulse Ox 90 L 06/09/23 11:36 Laboratory Results - last 24 hr 06/08/23 06/09/23 06/09/23 20:13 06:05 08:40 WBC 11.39 H RBC 2.47 L Hgb 8.1 L Hct 23.8 L MCV 96 H MCH 32.8 MCHC 34.0 RDW 15.0 H Plt Count 157 MPV 10.6 Immature Gran % 4.1 Neutrophils % 61.4 Lymphocytes % 16.3 Monocytes % 13.6 Eosinophils % 4.1 Basophils % 0.5 Nucleated RBC % 1.1 H Absolute Neutrophils 6.99 H Absolute Lymphocytes 1.86 Absolute Monocytes 1.55 H Absolute Eosinophils 0.47 Absolute Basophils 0.06 Sodium 135 L Potassium 3.3 L Chloride 98 Carbon Dioxide 27.4 Anion Gap 9.6 BUN 53 H Creatinine 1.6 H Est GFR (CKD-EPI 2020) 47.23 Glucose 129 H Calcium 8.9 Magnesium 2.2 Procalcitonin 0.4 Urine Color Urine Clarity Urine pH Ur Specific [place] Urine Protein Urine Ketones Urine Blood Urine Nitrite Urine Bilirubin Urine Urobilinogen Ur Leukocyte Esterase Urine RBC Urine WBC Ur Epithelial Cells Urine Crystals Urine Bacteria Urine Mucus Ur Culture Indicated? Urine Glucose COVID-19 Source Nasopharynx SARS-CoV-2 (PCR) Negative Influenza Type A (PCR) Negative Influenza Type B (PCR) Negative RSV (PCR) Negative Add-On Test Request DONE 06/09/23 11:15 WBC RBC Hgb Hct MCV MCH MCHC RDW Plt Count MPV Immature Gran % Neutrophils % Lymphocytes % Monocytes % Eosinophils % Basophils % Nucleated RBC % Absolute Neutrophils Absolute Lymphocytes Absolute Monocytes Absolute Eosinophils Absolute Basophils Sodium Potassium Chloride Carbon Dioxide Anion Gap BUN Creatinine Est GFR (CKD-EPI 2020) Glucose Calcium Magnesium Procalcitonin Urine Color Yellow Urine Clarity Clear Urine pH 7.0 Ur Specific [place] 1.015 Urine Protein Negative Urine Ketones Negative Urine Blood Trace-lysed H Urine Nitrite Negative Urine Bilirubin Negative Urine Urobilinogen 0.2 Ur Leukocyte Esterase Large H Urine RBC 0-2 Urine WBC 20-50 H Ur Epithelial Cells Not Applicable Urine Crystals Negative Urine Bacteria Many Urine Mucus Negative Ur Culture Indicated? Yes Urine Glucose Negative COVID-19 Source SARS-CoV-2 (PCR) Influenza Type A (PCR) Influenza Type B (PCR) RSV (PCR) Add-On Test Request Objective Narrative Objective Narrative: Chest x-ray:1. Cardiomegaly and pulmonary venous congestion. 2. Question of a left basilar infiltrate which may represent pneumonia or atelectasis. MRI lumbar spine: 1. Multilevel marked degenerative changes seen in the lumbar spine resulting in central spinal canal neural foraminal stenosis as described above. 2. There is again seen what appears to be a left iliacus muscle hematoma. Time Spent with Patient Time Spent with Patient: 35-49 minutes Time was spent: preparing to see the patient(eg.review tests), obtaining and/or reviewing separately otained hiistory, ordering medications,tests, procedures, referring, communicating with other health summer child caregiver, indepentently interpreting results, counseling the patient and care coordination
[2023-06-09] MEDS: Torsemide 20 MG TAB 40 MG PO (21:12)
[2023-06-09] MEDS: VANCOMYCIN/WATER (PEG) 2 GM/400 ML BAG IVPB (21:13)
[2023-06-09 21:18] VITALS: BP 112/65; PULSE 74; RESP 14; TEMP 36.8; O2SAT 93
[2023-06-10] VITALS (7 sets, daily range): BP systolic 96–108; BP diastolic 55–65; PULSE 59–80; RESP 16–19; TEMP 36.4–37.2; O2SAT 91–96
[2023-06-10] MEDS: CEFEPIME 2 GM in Normal Saline 100 ML IVPB ×2 (05:19→17:28)
[2023-06-10] MEDS: Enoxaparin 100 MG/ML SYR SC ×2 (05:20→17:28)
[2023-06-10 07:01] LABS: Abs Immature Grans 0.64 10^3/uL (0.0-0.06); Absolute Basophil Count 0.08 10^3/uL (0.0-0.2); Absolute Lymphocyte Count 0.86 10^3/uL (1.2-3.4); Absolute Monocyte Count 1.28 10^3/uL (0.1-0.8); Basophils % 0.7; Eosinophils % 5.5; HCT 25.8 % (40.0-50.0); HGB 8.4 g/dL (13.5-17.5); Immature Grans % 5.9; Lymphocytes % 7.9; MCH 31.9 pg (27.0-33.0); MCHC 32.6 % (32.0-36.0); MCV 98 fL (80-95); MPV 10.2 fL (8.0-11.0); Monocytes % 11.8; Neutrophils % 68.2; Nucleated RBC 1.7 % (0.0-0.3); Platelet Count 166 10^3/uL (130-400); RBC 2.63 10^6/uL (4.36-5.78); RDW 15.6 % (11.8-14.1); RDW-SD 54.4 fL; WBC 10.85 10^3/uL (4.4-10.8)
[2023-06-10 07:22] LABS: Diff Comment Diff Reviewed; RBC Morphology Normal
[2023-06-10 07:28] LABS: Vancomycin, Random 25.3 ug/mL
[2023-06-10 07:31] LABS: Anion Gap 13.7 mmol/L (3-11); BUN 42 mg/dL (7-18); CO2 26.3 mmol/L (21.0-32.0); CREATININE 1.5 mg/dL (0.70-1.30); Calcium 9.1 mg/dL (8.5-10.1); Chloride 101 mmol/L (98-107); Estimated GFR 51.03 (mL/min/1.73m2); Glucose 121 mg/dL (74-106); Magnesium 2.2 mg/dL (1.8-2.4); Sodium 141 mmol/L (136-145)
[2023-06-10] MEDS: Tiotropium/Olodaterol 10 PUFF INHALER 2 PUFF IH (07:54)
[2023-06-10] MEDS: Torsemide 20 MG TAB 40 MG PO ×3 (08:45→20:28)
[2023-06-10] MEDS: Normal Saline Flush 10 ML SYR IVP ×2 (08:46→20:30)
[2023-06-10] MEDS: Ferrous Sulfate 325 MG TAB PO (08:46)
[2023-06-10] MEDS: Folic Acid 1 MG TAB PO (08:46)
[2023-06-10] MEDS: Pregabalin 25 MG CAP 75 MG PO ×2 (08:46→20:28)
[2023-06-10] MEDS: Lachydrin 12% LOTION 225 GM BTL TP ×2 (08:47→20:31)
--- NOTE | 2023-06-10 08:59 | PDOC.CMPRO ---
Date of service: 06/10/23 Time of Service: 08:59 Care Management Progress Note Progress Note Text Progress Note Text: S/O: Isra was sitting up in bed when CM met with him. He stated that he was tired today but otherwise felt OK. Isra had an MRI yesterday of his lumbar spine. [facility] has recommended additional MRIs of his cervical and thoracic spine as well. CM discussed this with Isra and he agreed as long as he can be pre-medicated with the same medications as yesterday. This will likely happen on Tuesday. Isra has also been found to have pneumonia and a UTI. He has a supra-pubic catheter that will need to be exchanged. Isra remains afebrile and his vital signs have been stable. A: Isra is a 68 year old man admitted on 06/04/23 with NAZARIO on CKD P:Anticipate Isra will be transferred to [facility] when medically cleared by provider. He will follow up with the facility provider and plan of care and transport via facility van. CM will follow and continue to assess for discharge needs. SDOH(Care Management) Screening Will the Patient Participate in the Screening?: Yes Do you worry about having a steady place to live?: no In the past 12 months, have you had to go without electric, gas, oil or water in your home?: no Have you or anyone in your house had to go without enough food to eat?: no Has lack of transportation kept you from medical appointments or from doing things needed for daily living?: no Has anyone in your support network made you feel unsafe for any reason?: no
--- NOTE | 2023-06-10 10:56 | PT.INTREAT ---
Date of service: 06/10/23 Time of Service: 10:19 PT Notes Visit Reasons: Acute on chronic kidney injury, hypotension Inpatient Physical Therapy Treatment Note [facility] Date: 06/10/23 PRECAUTIONS: Fall, CONTACT, activity as tolerated. SUBJECTIVE: Patient reports that MRI was successful. Now, feeling very tired. Aggravated that he is sitting up in bedside chair. Wishes to go back to bed. Agreeable to therapy, provided that he is back in bed at close of treatment session. OBJECTIVE: Sitting up in bedside chair, agreeable to therapy. Suprapubic catheter in place. ? PAIN: none reported VITALS: monitored by nursing staff. Therapeutic Activities ([id number]): Direct one-on-one instruction in dynamic activities to improve functional performance. ? BED MOBILITY/TRANSFERS? Rolling L/R: not assessed AFTERNOON: Max assist for scooting, mod assist for maneuvering legs especially left leg. Supine-sit: not assessed AFTERNOON: min assist for unweighting left leg so that patient can move it, mod assist via handhold for patient to pull up. ? Sit-supine: not assessed AFTERNOON: mod assist to maneuver legs back into bed, max assist for scooting up in bed. ? Sit-stand: mod assist of one via gait belt to FWW (x3), min assist x2 with [employer] Heater into STEDY lift (x1). Patient able to pull himself to stand with more strength and coordination than he is able to push up from chair. ? Stand-sit: CGA. Patient is able to lower himself with good control through full range ? Bed-Chair: Dependent, STEDY lift? Chair-bed: Dependent, STEDY lift? Patient able to stand for 25 seconds x3. Requires extended rest between efforts as he becomes significantly dyspneic. Education provided on the importance of sitting up, especially for meals, in the setting of possible pneumonia. As well, education provided on the importance of sitting up and moving around for assistance with bowel motility. AFTERNOON: Patient able to take 2 small steps laterally to patient's right in order to move towards head of bed. Provided skilled cues and instruction on performance and technique throughout. ? ASSESSMENT:? Patient tolerates therapy well. Reports need to use toilet at close of session, transfers via STEDY lift with assist from AMANDA Mendoza. AFTERNOON: Patient tolerates therapy well, reporting some increased shortness of breath this afternoon compared to this morning which does resolve with rest. PLAN: Continue global strengthening per plan of care. Patient will benefit from a brief senior living stay for continued skilled rehab in order to maximize functional independence. TREATMENT CODE/TIME: 34 minutes beginning at 10:19 and 25 minutes beginning at 16:03 for a total of 59 minutes today.
--- NOTE | 2023-06-10 15:25 | CHAPLAIN ---
Isra and I know each other from previous admissions and his , Brigitte, here a few years ago. Isra said he fell at home and that's why he's here. He lives at the [facility] now and goes to [place] three days a week. He told me he wanted to get back into bed, but his nurse had told him he needs to sit up in the chair longer. The FUEL CELL BINDER providing care for Isra said he has been rude and demanding.
[2023-06-10] MEDS: Albuterol HFA 8 GM 60 PUFF INH IH (20:26)
[2023-06-10] MEDS: VANCOMYCIN/WATER (PEG) 1.25 GM/250 ML BAG IVPB (20:26)
[2023-06-10] MEDS: Acetaminophen 325 MG TAB PO (20:39)
--- NOTE | 2023-06-10 21:08 | W.PM.PROGNOT ---
Date of Service Date of service: 06/10/23 Time of Service: 19:20 Assessment and Plan Assessment and plan (1) HCAP (healthcare-associated pneumonia): Status: Acute Assessment and plan: Continue vancomycin, cefepime. We know the patient to be MRSA positive. Encourage pulmonary toilet. He is wheezing, so I did ask the nurses to give him his as needed albuterol inhaler. (2) UTI (urinary tract infection): Status: Acute Assessment and plan: Insetting of a suprapubic catheter being present. His urine culture is growing greater than 100,000 colony-forming units of gram-negative rods. Cefepime should cover this empirically, but sensitivities are pending. I have asked the nurses to follow-up on whether or not the suprapubic catheter was exchanged. (3) Left leg weakness: Status: Acute Assessment and plan: As well as acute on chronic back pain. I have reviewed the MRI of the lumbar spine with [facility] neurosurgery. There is no evidence of cord compression on the images we sent and no obvious lateral disc herniation. They do recommend obtaining contrast MRI image of the lumbar spine in addition to also scanning cervical and thoracic spine with and without contrast. The patient has a history of cord compression listed in his chart, but the spine service at [facility] and the neurosurgery service at [facility] have never actually met this patient. According to the patient today, he was only treated by oncology at the time. (4) Acute on chronic renal insufficiency: Status: Acute Assessment and plan: Improving. Continue diuresis. Recheck Cr in am. (5) Hypotension: Status: Chronic Assessment and plan: Monitor blood pressures with resumption of diuretics. Continue to monitor. (6) Anemia: Status: Chronic Assessment and plan: Acute on chronic macrocytic anemia. L thigh hematoma is possibly contributing. Hemoglobin is stable. Continue to monitor. The patient is on anticoagulation. Replete folate. (7) Hematoma: Status: Acute Assessment and plan: as above (8) Congestive heart disease: Status: Chronic Assessment and plan: Continue diuretics. 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 In remission. This has caused cord compression in the past, and so we are going to obtain MRIs of the cervical and thoracic spine with and without contrast as well as a lumbar spine MRI with contrast to ensure that there are no recurrences in the spine. (10) Suprapubic catheter: Status: Chronic Assessment and plan: Followed by outpatient urology; nursing is following up to ensure that this has been exchanged. (11) COPD (chronic obstructive pulmonary disease): Status: None Assessment and plan: He is wheezing today, so it is possible that he is having a mild exacerbation now due to the pneumonia. Consider steroids. Continue home meds. Continue as needed albuterol. On RA today - continue to work with pulmonary toilet. Qualifiers: COPD type: emphysema Emphysema type: centrilobular Qualified Code(s): J43.2 - Centrilobular emphysema (12) DVT prophylaxis: Status: Acute Assessment and plan: He is on full dose anticoagulation with lovenox (13) Discharge planning issues: Status: Acute Assessment and plan: DNR/DNI PT and wound care consulted. Palliative care consulted. On contact precautions. Subjective Subjective Interval history since last seen: Mr. Mao feels better today. He denies any dizziness, chest pain, feels a little bit short of breath, denies nausea and vomiting. He still had not had a bowel movement, and agrees to accept a suppository. Exam Narrative Exam Narrative: General: a pleasant middle-aged male who has a diffuse erythematous rash which appears to be slightly scaly, A&Ox3, on RA, looks tired, but better than yesterday HEENT: EOMI, MMM Heart: RRR, no m/r/g Lungs: Wheezing on expiration bilaterally, mild Abdomen: soft, nontender, nondistended : Has a suprapubic catheter, urine appears cloudy Extremities: +1 edema BLEs, symmetric Objective Last Vital Signs Temp 37.0 C 06/10/23 20:02 Pulse 80 06/10/23 20:02 Resp 19 06/10/23 20:02 BP 107/65 06/10/23 20:02 Pulse Ox 94 06/10/23 20:02 Laboratory Results - last 24 hr 06/10/23 06:40 WBC 10.85 H RBC 2.63 L Hgb 8.4 L Hct 25.8 L MCV 98 H MCH 31.9 MCHC 32.6 RDW 15.6 H Plt Count 166 MPV 10.2 Immature Gran % 5.9 Neutrophils % 68.2 Lymphocytes % 7.9 Monocytes % 11.8 Eosinophils % 5.5 Basophils % 0.7 Nucleated RBC % 1.7 H Absolute Neutrophils 7.40 H Absolute Lymphocytes 0.86 L Absolute Monocytes 1.28 H Absolute Eosinophils 0.60 Absolute Basophils 0.08 RBC Morphology Normal Sodium 141 Potassium 4.0 Chloride 101 Carbon Dioxide 26.3 Anion Gap 13.7 H BUN 42 H Creatinine 1.5 H Est GFR (CKD-EPI 2020) 51.03 Glucose 121 H Calcium 9.1 Magnesium 2.2 Random Vancomycin 25.3 Time Spent with Patient Time Spent with Patient: 35-49 minutes Time was spent: preparing to see the patient(eg.review tests), obtaining and/or reviewing separately otained hiistory, ordering medications,tests, procedures, referring, communicating with other health medicare compliance auditor, indepentently interpreting results, counseling the patient and care coordination
[2023-06-10] MEDS: Bisacodyl 10 MG SUPP PR (21:48)
[2023-06-11] VITALS (7 sets, daily range): BP systolic 92–103; BP diastolic 52–63; PULSE 65–82; RESP 18–24; TEMP 36.4–37.2; O2SAT 89–94
[2023-06-11] MEDS: Enoxaparin 100 MG/ML SYR SC ×2 (05:20→17:38)
[2023-06-11] MEDS: CEFEPIME 2 GM in Normal Saline 100 ML IVPB ×2 (05:20→17:36)
[2023-06-11 07:11] LABS: Abs Immature Grans 0.37 10^3/uL (0.0-0.06); Absolute Basophil Count 0.06 10^3/uL (0.0-0.2); Absolute Eosinophil Count 0.74 10^3/uL (0.0-0.7); Absolute Lymphocyte Count 0.81 10^3/uL (1.2-3.4); Absolute Monocyte Count 0.97 10^3/uL (0.1-0.8); Basophils % 0.6; Eosinophils % 7.5; HCT 26.3 % (40.0-50.0); HGB 8.6 g/dL (13.5-17.5); Immature Grans % 3.8; Lymphocytes % 8.2; MCH 32.2 pg (27.0-33.0); MCHC 32.7 % (32.0-36.0); MCV 99 fL (80-95); MPV 10.3 fL (8.0-11.0); Monocytes % 9.8; Neutrophils % 70.1; Nucleated RBC 0.9 % (0.0-0.3); Platelet Count 160 10^3/uL (130-400); RBC 2.67 10^6/uL (4.36-5.78); RDW 16.2 % (11.8-14.1); WBC 9.85 10^3/uL (4.4-10.8)
[2023-06-11 07:26] LABS: Anion Gap 12.3 mmol/L (3-11); BUN 39 mg/dL (7-18); CO2 26.7 mmol/L (21.0-32.0); CREATININE 1.4 mg/dL (0.70-1.30); Calcium 9.2 mg/dL (8.5-10.1); Chloride 100 mmol/L (98-107); Estimated GFR 55.43 (mL/min/1.73m2); Glucose 107 mg/dL (74-106); Magnesium 1.8 mg/dL (1.8-2.4); Potassium 3.2 mmol/L (3.5-5.1); Sodium 139 mmol/L (136-145)
[2023-06-11] MEDS: Ferrous Sulfate 325 MG TAB PO (08:36)
[2023-06-11] MEDS: Torsemide 20 MG TAB 40 MG PO ×3 (08:36→21:03)
[2023-06-11] MEDS: Pregabalin 25 MG CAP 75 MG PO ×2 (08:36→21:03)
[2023-06-11] MEDS: Normal Saline Flush 10 ML SYR IVP ×2 (08:36→21:04)
[2023-06-11] MEDS: Folic Acid 1 MG TAB PO (08:36)
[2023-06-11] MEDS: Lachydrin 12% LOTION 225 GM BTL TP ×2 (08:37→21:08)
[2023-06-11] MEDS: Tiotropium/Olodaterol 10 PUFF INHALER 2 PUFF IH (09:10)
[2023-06-11] MEDS: Potassium Chloride 20 MEQ TABCR 40 MEQ PO (10:00)
--- NOTE | 2023-06-11 11:26 | PGE_ITS ---
Date of Service Date of service: 06/11/23 Time of Service: 11:26 Assessment and Plan Assessment and plan (1) HCAP (healthcare-associated pneumonia): Status: Acute Assessment and plan: Continue vancomycin, cefepime day 3. MRSA positive. Encourage pulmonary toilet. oxygenating well on room air, no respiratory distress (2) UTI (urinary tract infection): Status: Acute Assessment and plan: Insetting of a suprapubic catheter being present. His urine culture is growing greater than 100,000 colony-forming units of gram- negative rods. Cefepime should cover this empirically, but sensitivities are pending. nurisng to check on suprapubic catheter exchange (3) Left leg weakness: Status: Acute Assessment and plan: As well as acute on chronic back pain. MRI of the lumbar spine reviewed with [facility] neurosurgery. There is no evidence of cord compression on the images we sent and no obvious lateral disc herniation. They do recommend obtaining contrast MRI image of the lumbar spine in addition to also scanning cervical and thoracic spine with and without contrast. The patient has a history of cord compression listed in his chart, but the spine service at [facility] and the neurosurgery service at [facility] have never actually met this patient. According to the patient, he was only treated by oncology at the time. (4) Acute on chronic renal insufficiency: Status: Acute Assessment and plan: Improving. Continue diuresis. Recheck Cr in am. (5) Hypotension: Status: Chronic Assessment and plan: Monitor blood pressures with resumption of diuretics. Continue to monitor. (6) Anemia: Status: Chronic Assessment and plan: Acute on chronic macrocytic anemia. L thigh hematoma is possibly contributing. Hemoglobin is stable. Continue to monitor. The patient is on anticoagulation. Replete folate. (7) Hematoma: Status: Acute Assessment and plan: as above (8) Congestive heart disease: Status: Chronic Assessment and plan: Continue diuretics. 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 In remission. This has caused cord compression in the past, and so we are going to obtain MRIs of the cervical and thoracic spine with and without contrast as well as a lumbar spine MRI with contrast to ensure that there are no recurrences in the spine. (10) Suprapubic catheter: Status: Chronic Assessment and plan: Followed by outpatient urology; nursing is following up to ensure that this has been exchanged. (11) COPD (chronic obstructive pulmonary disease): Status: None Assessment and plan: mild exacerbation now due to the pneumonia. Consider steroids. Continue home meds. Continue as needed albuterol. On RA - continue to work with pulmonary toilet. Qualifiers: COPD type: emphysema Emphysema type: centrilobular Qualified Code(s): J43.2 - Centrilobular emphysema (12) DVT prophylaxis: Status: Acute Assessment and plan: He is on full dose anticoagulation with lovenox (13) Discharge planning issues: Status: Acute Assessment and plan: DNR/DNI PT and wound care consulted. Palliative care consulted. On contact precautions. discussed with Dr rodriguez Subjective Subjective Patient reports: no new complaints, tolerating liquids well, tolerating a regular diet and bowel movement (small, constipated) Exam Const General: no acute distress and ill appearing (older than stated age) chronically Nutritional Appearance: obese Orientation: alert HENMT Head: normal to inspection Ears: external ears normal General nose exam: external nose normal Mouth: moist mucous membranes Eyes General: appearance normal, both eyes and all related structures Neck Neck: normal visual inspection Resp Effort & Inspection: normal respiratory effort and able to speak in complete sentences Cardio Rate: regular rate Skin General skin exam: no rashes or lesions noted Neuro General: patient alert and patient oriented x3 Extrem General: capillary refill normal Psych Mental Status: mental status grossly normal Objective Last Vital Signs Temp 36.9 C 06/11/23 07:26 Pulse 72 06/11/23 07:26 Resp 18 06/11/23 07:26 BP 103/63 06/11/23 07:26 Pulse Ox 92 06/11/23 07:26 Laboratory Results - last 24 hr 06/11/23 06:35 WBC 9.85 RBC 2.67 L Hgb 8.6 L Hct 26.3 L MCV 99 H MCH 32.2 MCHC 32.7 RDW 16.2 H Plt Count 160 MPV 10.3 Immature Gran % 3.8 Neutrophils % 70.1 Lymphocytes % 8.2 Monocytes % 9.8 Eosinophils % 7.5 Basophils % 0.6 Nucleated RBC % 0.9 H Absolute Neutrophils 6.90 H Absolute Lymphocytes 0.81 L Absolute Monocytes 0.97 H Absolute Eosinophils 0.74 H Absolute Basophils 0.06 Sodium 139 Potassium 3.2 L Chloride 100 Carbon Dioxide 26.7 Anion Gap 12.3 H BUN 39 H Creatinine 1.4 H Est GFR (CKD-EPI 2020) 55.43 Glucose 107 H Calcium 9.2 Magnesium 1.8 Time Spent with Patient Time Spent with Patient: 35-49 minutes Time was spent: preparing to see the patient(eg.review tests), obtaining and/or reviewing separately otained hiistory, ordering medications,tests, procedures, indepentently interpreting results and counseling the patient
[2023-06-11] MEDS: Acetaminophen 325 MG TAB PO ×2 (13:25→21:51)
--- NOTE | 2023-06-11 14:37 | PTTR_ITS ---
Date of service: 06/11/23 Time of Service: 09:05 PT Notes Visit Reasons: Acute on chronic kidney injury, hypotension Inpatient Physical Therapy Treatment Note [facility] Date: 06/11/23 PRECAUTIONS: Fall, contact and activity as tolerated. Catheter in place. SUBJECTIVE: Can't stand any longer. Legs are tired post last binder and box builder Stedy lift. OBJECTIVE: ? PAIN: Pain in left LE with movement and bothers toes a little standing on Stedy Lift pad. Therapeutic Activities (09051e7): Direct one-on-one instruction in dynamic activities to improve functional performance. ? BED MOBILITY/TRANSFERS? Rolling L/R: Min assist with legs rolling to right Supine-sit: Min- mod assist with legs ? Sit-stand: CGA?and verbal cueing ? Stand-sit: CGA and verbal cueing ? Bed-Chair: Transferred with Stedy lift bed to recliner. Able to binder and box builder Stedy Lift 1 x 30 seconds, 1 x 25 seconds and 1 x 20 seconds with CGA ? Provided skilled cues and instruction on performance and technique throughout. ? Exercises: Reviewed ankle pumps for 1 minutes, quad sets for 3-5 second holds x 1 minutes and glut sets for 3-5 seconds x 1 minutes. Able to demonstrate each of these exercises appropriately while. ? Provided skilled instruction in proper exercise performance Provided skilled manual cues to facilitate proper muscle recruitment and/or form ASSESSMENT:?Tolerated today's session well with good effort given. Still very weak with standing endurance. PLAN: Continue to focus on improved ADL function, advancing as able to tolerate, as per supervising PT's POC. TREATMENT CODE/TIME: 53691h5, 9:05 to 9:30 (25')
[2023-06-11] MEDS: VANCOMYCIN/WATER (PEG) 1.25 GM/250 ML BAG IVPB (21:02)
[2023-06-12] VITALS (7 sets, daily range): BP systolic 90–104; BP diastolic 50–64; PULSE 66–76; RESP 17–24; TEMP 36.3–37.1; O2SAT 91–94
[2023-06-12] MEDS: Enoxaparin 100 MG/ML SYR SC ×2 (06:22→17:38)
[2023-06-12] MEDS: CEFEPIME 2 GM in Normal Saline 100 ML IVPB ×2 (06:22→17:38)
[2023-06-12 06:42] LABS: Abs Immature Grans 0.24 10^3/uL (0.0-0.06); Absolute Basophil Count 0.03 10^3/uL (0.0-0.2); Absolute Eosinophil Count 0.65 10^3/uL (0.0-0.7); Absolute Lymphocyte Count 0.79 10^3/uL (1.2-3.4); Absolute Monocyte Count 0.97 10^3/uL (0.1-0.8); Absolute Neutrophil Count 4.99 10^3/uL (1.2-6.7); Basophils % 0.4; Eosinophils % 8.5; HCT 29.3 % (40.0-50.0); HGB 9.5 g/dL (13.5-17.5); Immature Grans % 3.1; Lymphocytes % 10.3; MCH 32.3 pg (27.0-33.0); MCHC 32.4 % (32.0-36.0); MCV 100 fL (80-95); Monocytes % 12.6; Neutrophils % 65.1; Nucleated RBC 0.7 % (0.0-0.3); RBC 2.94 10^6/uL (4.36-5.78); RDW 16.7 % (11.8-14.1); RDW-SD 57.1 fL; WBC 7.67 10^3/uL (4.4-10.8)
[2023-06-12 06:45] LABS: Anion Gap 11.7 mmol/L (3-11); BUN 48 mg/dL (7-18); CO2 27.3 mmol/L (21.0-32.0); CREATININE 1.6 mg/dL (0.70-1.30); Calcium 9.3 mg/dL (8.5-10.1); Chloride 102 mmol/L (98-107); Estimated GFR 47.23 (mL/min/1.73m2); Glucose 99 mg/dL (74-106); Magnesium 1.9 mg/dL (1.8-2.4); Potassium 3.8 mmol/L (3.5-5.1); Sodium 141 mmol/L (136-145)
[2023-06-12 07:02] LABS: Diff Comment PLT Morph Reviewed; RBC Morphology Normal
[2023-06-12] MEDS: Tiotropium/Olodaterol 10 PUFF INHALER 2 PUFF IH (07:56)
[2023-06-12] MEDS: Folic Acid 1 MG TAB PO (09:03)
[2023-06-12] MEDS: Pregabalin 25 MG CAP 75 MG PO ×2 (09:03→20:21)
[2023-06-12] MEDS: Ferrous Sulfate 325 MG TAB PO (09:03)
[2023-06-12] MEDS: Normal Saline Flush 10 ML SYR IVP ×2 (09:04→20:22)
[2023-06-12] MEDS: Lachydrin 12% LOTION 225 GM BTL TP ×2 (09:04→20:39)
[2023-06-12] MEDS: Torsemide 20 MG TAB 40 MG PO ×3 (09:04→20:21)
--- NOTE | 2023-06-12 11:05 | W.PM.PROGNOT ---
Date of Service Date of service: 06/12/23 Time of Service: 11:05 Assessment and Plan Assessment and plan (1) Constipation: Status: Acute Assessment and plan: scheduled bowel management. no nausea or abdominal pain. (2) HCAP (healthcare-associated pneumonia): Status: Acute Assessment and plan: Continue vancomycin, cefepime day 4. MRSA positive. Encourage pulmonary toilet. oxygenating well on room air, no respiratory distress (3) UTI (urinary tract infection): Status: Acute Assessment and plan: Insetting of a suprapubic catheter being present. His urine culture is growing greater than 100,000 colony-forming units of gram-negative rods. Cefepime should cover this empirically, but sensitivities are pending. nurisng to check on suprapubic catheter exchange (4) Left leg weakness: Status: Acute Assessment and plan: As well as acute on chronic back pain. MRI of the lumbar spine reviewed with [facility] neurosurgery. There is no evidence of cord compression on the images we sent and no obvious lateral disc herniation. They do recommend obtaining contrast MRI image of the lumbar spine in addition to also scanning cervical and thoracic spine with and without contrast. The patient has a history of cord compression listed in his chart, but the spine service at [facility] and the neurosurgery service at [facility] have never actually met this patient. According to the patient, he was only treated by oncology at the time. (5) Acute on chronic renal insufficiency: Status: Acute Assessment and plan: Improving. Continue diuresis. Recheck Cr in am. (6) Hypotension: Status: Chronic Assessment and plan: Monitor blood pressures with resumption of diuretics. Continue to monitor. (7) Anemia: Status: Chronic Assessment and plan: Acute on chronic macrocytic anemia. L thigh hematoma is possibly contributing. Hemoglobin is stable. Continue to monitor. The patient is on anticoagulation. Replete folate. (8) Hematoma: Status: Acute Assessment and plan: as above (9) Congestive heart disease: Status: Chronic Assessment and plan: Continue diuretics. 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 In remission. This has caused cord compression in the past, and so we are going to obtain MRIs of the cervical and thoracic spine with and without contrast as well as a lumbar spine MRI with contrast to ensure that there are no recurrences in the spine. (11) Suprapubic catheter: Status: Chronic Assessment and plan: Followed by outpatient urology; nursing is following up to ensure that this has been exchanged. (12) COPD (chronic obstructive pulmonary disease): Status: None Assessment and plan: mild exacerbation now due to the pneumonia. Consider steroids. Continue home meds. Continue as needed albuterol. On RA - continue to work with pulmonary toilet. Qualifiers: COPD type: emphysema Emphysema type: centrilobular Qualified Code(s): J43.2 - Centrilobular emphysema (13) DVT prophylaxis: Status: Acute Assessment and plan: He is on full dose anticoagulation with lovenox (14) Discharge planning issues: Status: Acute Assessment and plan: DNR/DNI PT and wound care consulted. Palliative care consulted. On contact precautions. discussed with Dr rodriguez Subjective Subjective Patient reports: no new complaints, tolerating liquids well, tolerating a regular diet, no bowel movement and afebrile; denies shortness of breath Exam Const General: no acute distress and ill appearing (older than stated age) chronically Nutritional Appearance: obese Orientation: alert [facility] Head: normal to inspection Ears: external ears normal General nose exam: external nose normal Mouth: moist mucous membranes Eyes General: appearance normal, both eyes and all related structures Neck Neck: normal visual inspection Resp Effort & Inspection: normal respiratory effort and able to speak in complete sentences Cardio Rate: regular rate Skin General skin exam: no rashes or lesions noted Neuro General: patient alert and patient oriented x3 Extrem General: capillary refill normal Psych Mental Status: mental status grossly normal Objective Last Vital Signs Temp 36.4 C L 06/12/23 08:07 Pulse 71 06/12/23 08:07 Resp 17 06/12/23 08:07 BP 100/64 06/12/23 08:07 Pulse Ox 93 06/12/23 08:07 Laboratory Results - last 24 hr 06/12/23 06:10 WBC 7.67 RBC 2.94 L Hgb 9.5 L Hct 29.3 L MCV 100 H MCH 32.3 MCHC 32.4 RDW 16.7 H Plt Count MPV Immature Gran % 3.1 Neutrophils % 65.1 Lymphocytes % 10.3 Monocytes % 12.6 Eosinophils % 8.5 Basophils % 0.4 Nucleated RBC % 0.7 H Absolute Neutrophils 4.99 Absolute Lymphocytes 0.79 L Absolute Monocytes 0.97 H Absolute Eosinophils 0.65 Absolute Basophils 0.03 RBC Morphology Normal Sodium 141 Potassium 3.8 Chloride 102 Carbon Dioxide 27.3 Anion Gap 11.7 H BUN 48 H Creatinine 1.6 H Est GFR (CKD-EPI 2020) 47.23 Glucose 99 Calcium 9.3 Magnesium 1.9 Time Spent with Patient Time Spent with Patient: 35-49 minutes Time was spent: preparing to see the patient(eg.review tests), obtaining and/or [facility], ordering medications,tests, procedures, indepentently interpreting results and counseling the patient
[2023-06-12] MEDS: Polyethylene Glycol 3350 17 GM PACKET PO ×2 (11:49→20:22)
--- NOTE | 2023-06-12 13:41 | PT.INTREAT ---
Date of service: 06/12/23 Time of Service: 10:25 PT Notes Visit Reasons: Acute on chronic kidney injury, hypotension Inpatient Physical Therapy Treatment Note [facility] Date: 06/12/2023 PRECAUTIONS: Fall, contact and activity as tolerated. Catheter in place. SUBJECTIVE: Indicated he feels like his legs get very tired. OBJECTIVE: ? PAIN: Wearing sneakers in Stedy due to his toes hurting when standing on platform. Therapeutic Activities ([id number]): Direct one-on-one instruction in dynamic activities to improve functional performance. ?? Exercises: Warm up of ankle pumps for 1 minutes, quad sets for 3-5 second holds x 1 minutes and glut sets for 3-5 seconds x 1 minutes and instructed in hip IR/ER rolls while in recliner.? Provided skilled manual cues to facilitate proper muscle recruitment and/or form ? ? ? BED MOBILITY/TRANSFERS? Rolling L/R: Min assist with legs rolling to right Sit to supine: Min- mod assist with lifting legs up onto bed, mod assist with pulling himself up in bed once in supine. ?Sit-stand: Min assist?and verbal cueing from recliner, but required mod assist toilet to standing. ? Stand-sit: CGA and verbal cueing ? Bed-Chair: Transferred with Stedy lift recliner to toilet and toilet back to bed. Able to director of market intelligence Stedy Lift 1 x 20 seconds, 1 x 40 seconds and 1 x 1 minute with CGA ? Provided skilled cues and instruction on performance and technique throughout. ? ASSESSMENT:?Tolerated today's session well with good effort given. Continues to be weak with standing endurance. PLAN: Continue to focus on improved ADL function, advancing as able to tolerate, as per supervising PT's POC. TREATMENT CODE/TIME: [id number], 10:25 to 10:35 (10') and 12:30 to 12:45 (15')
[2023-06-12] MEDS: Docusate Sodium 100 MG CAP PO (20:21)
[2023-06-12] MEDS: VANCOMYCIN/WATER (PEG) 1.25 GM/250 ML BAG IVPB (20:22)
[2023-06-12] MEDS: Acetaminophen 325 MG TAB PO (20:39)
[2023-06-13 03:16] VITALS: BP 94/55; PULSE 72; RESP 18; TEMP 36.8; O2SAT 94
[2023-06-13] MEDS: CEFEPIME 2 GM in Normal Saline 100 ML IVPB (05:12)
[2023-06-13] MEDS: Enoxaparin 100 MG/ML SYR SC ×2 (05:13→18:51)
[2023-06-13 06:56] LABS: Vancomycin, Random 43.6 ug/mL
--- NOTE | 2023-06-13 08:02 | PCNE_ITS ---
Date of service: 06/13/23 Time of Service: 08:02 History of Present Illness History of Present Illness Chief Complaint: Pt did not respond to questions, although he responded to commands Narrative: Kody is a complex patient who has vascular disease, cardiac disease, pulmonary hypertension, venous stasis, atrial fib, history of kidney injury, and question of cord compression syndrome. He lives at home with significant help from home help. The plan is for him to go to health and rehab after this hospitalization. I had spoken to him in the past with plans to see him after the last hospitalization, but he has returned prior to our visit. Kody is wheelchair-bound and found that he could not get out of his wheelchair a few days prior to admission due to weakness and leg pain. Home health had found him, he was transported to the ER, he was admitted for further care. During the course of hospitalization Kody has had numerous studies done. [facility] [place] been consulted and they want MRIs with and without contrast of most of his spine. There is a concern about spinal abscess as the cause of what is going on with him. This is slated for later today. Consults Consult date: 06/13/23 Requesting physician: Katie Smith Assessment and Plan Assessment and plan (1) Diastolic dysfunction: Status: Chronic (2) Pulmonary HTN: Status: Chronic (3) Venous stasis dermatitis of both lower extremities: Status: Acute (4) Chronic kidney disease, stage 3 unspecified: Status: Chronic (5) Lymphoma: Status: Resolved (6) Muscle weakness (generalized): Status: Acute (7) Cord compression syndrome: Status: Suspected (8) Smoking greater than 40 pack years: Status: Chronic Assessment and plan: Kody has considerable medical history. His most pressing concern at this time is cord compression causing his weakness and leg pain. This is being thoroughly explored by hospitalist. He is having multiple MRIs today. He was somnolent today when I came in again he processed commands but did not open his eyes. I do think that he will be well served by palliative care but at this time the issue of cord compression needs to be sorted out. I am happy to see him in the hospital but most likely will follow-up with him outpatient I did talk to Dr. Campoverde about the plan. There are many pieces to his puzzle Review of Systems Narrative: Kody is somnolent and did not give me a review of systems PFSH All Active Problems (Updated 06/14/23 @ 00:05 by DEMETRIO LÓPEZ) HCAP (healthcare-associated pneumonia) (Acute) Left leg weakness (Acute) Hematoma (Acute) Muscle weakness (generalized) (Acute) Atopic dermatitis (Acute) UTI (urinary tract infection) (Acute) Pulmonary embolism (Chronic) Cellulitis (Acute) Cervical spondylosis without myelopathy (Acute) Perineal ulcer (Acute) Cervical spine arthritis (Acute) Cervical radicular pain (Acute) Viral conjunctivitis of both eyes (Acute) Hypoadrenergic postural hypotension (Acute) Dyspnea (Acute) Conductive hearing loss, bilateral (Acute) Chronic serous otitis media, bilateral (Acute) Recurrent serous otitis media of left ear (Acute) Intertrigo (Acute) Sensorineural hearing loss, bilateral (Acute) Conductive hearing loss in right ear (Acute) Chronic kidney disease, stage 3 unspecified (Chronic) Chronic serous otitis media, right ear (Acute) Nasal vestibulitis (Acute) Mixed hearing loss, bilateral (Acute) Hearing deficit (Acute) Acute serous otitis media of right ear (Acute) Onychomycosis (Acute) Chronic Urinary retention (Acute) Nephrotic syndrome (Acute) Pancreatic lesion (Acute) Hypoattenuation seen on CT 05/09 Fluid retention (Acute) Thrombosis of right saphenous vein (Acute) Left femoral vein DVT (Acute) Anxiety and depression (Chronic) Hypertrophic toenail (Acute) Cor pulmonale (chronic) (Chronic) Suprapubic catheter (Chronic) Incontinence of bowel (Acute) Acute kidney injury (Acute ~09/28/19) due to methotrexate therapy Weakness of both lower extremities (Acute) Hyperuricemia (Acute) Paroxysmal A-fib (Acute) Dehydration (Acute) Limited code status (Acute) Pleural effusion (Acute) Abdominal lymphadenopathy (Acute) Mediastinal adenopathy (Acute) Respiratory distress (Acute) COPD exacerbation (Acute) Lung mass (Acute) Overgrown toenails (Acute) DJD (degenerative joint disease) (Chronic) Venous stasis ulcer of ankle limited to breakdown of skin (Acute) Venous stasis dermatitis of both lower extremities (Acute) Pulmonary HTN (Chronic) Mitral regurgitation (Chronic) Diastolic dysfunction (Chronic) Lymphedema of both lower extremities (Chronic) Ischemic ulcer of right ankle, limited to breakdown of skin (Acute) Smoking greater than 40 pack years (Chronic) cont on smoking cessation 08/2019 quit smoking; quit 2019 Venous insufficiency of both lower extremities (Chronic) as above Left varicocele (Acute 05/09/17) Microscopic hematuria (Acute 02/03/16) Osteoarthritis of hip (Acute 12/14/12) Right hydrocele (Acute 02/04/17) DVT (deep venous thrombosis) (Chronic) Microscopic hematuria (Acute) Crohn's disease (Chronic) Self Reported Mitral valve prolapse (Chronic) Osteoarthritis of hip (Acute 01/14/14) Total hip arthroplasty by Dr. Jose Nieves 01/14/14; Ceramic head; press fit. Depressive disorder (Chronic) Medical History Emphysema lung Right femoral vein DVT Hypotension Venous stasis ulcer of right lower leg with edema of right lower leg Cellulitis of right leg Housing problems Tobacco use disorder Alcohol dependence in remission Anxiety 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 Ulcer of right lower extremity Gastroesophageal reflux disease Osteoarthritis Hypercholesterolemia BPH (benign prostatic hyperplasia) Surgical History Total replacement of hip bilateral Tonsillectomy and adenoidectomy Repair of umbilical hernia Repair of inguinal hernia Bilateral EGD - MAC Colonoscopy - MAC Cholecystectomy (11/01/17) Extraction of cataract Family History Mother Breast cancer Hypertension Anxiety Father CHF (congestive heart failure) Maternal Aunt Diabetes Social History Smoking/Tobacco Use Status: Former Tobacco Use Quit Date: 08/23/19 Tobacco: How many years used: 50 Quit status: quit date established (06/29/2019) Smoking risk assessment performed?: Yes Alcohol Intake: former Year quit: 2007 Drug use: Never Substance use type: does not use Adopted: No Caregiver/Support person: Yes Foster care: No Household members: other Details: Self Housing: apartment Number of Children: 0 number of grandchildren: 0 Communication Needs: None Education Level: vocational Do you need help understanding health information?: Often current occupation: Disabled Pets and animals: No Sexually active: No Do you think of yourself as: straight/heterosexual Current gender identity: male What is your relationship status?: How often do you talk on the phone with friends or family?: three or more times per week How often do you get together with friends or relatives?: decline to answer Do you belong to any clubs or organized social groups?: yes Panel score (0-1 are the most socially isolated patients): 2 What type of physical activity do you participate in: other Details: Stretching - ROM - arms and wheelchair-bound Duration: 15-30 minutes/day Frequency: 3-4 times per week Yakelin/Hoahaoism: Episcopalian Special yakelin needs: No Seatbelt use: always Drive 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 taking deep breaths but he is not opening his eyes. His heart is rate controlled. He has fairly good air movement in the upper lungs, but not so on the lower lungs probably due to body habitus. He does have edema. There is a catheter in place. Results Last Vital Signs Temp 98.2 F 06/13/23 03:16 Pulse 72 06/13/23 03:16 Resp 18 06/13/23 03:16 BP 94/55 L 06/13/23 03:16 Pulse Ox 94 06/13/23 03:16 Labs 06/13/23 12:38 06/14/23 07:13 Labs: Laboratory Results - last 24 hr 06/13/23 06:11 Random Vancomycin 43.6
[2023-06-13] MEDS: Tiotropium/Olodaterol 10 PUFF INHALER 2 PUFF IH (08:06)
[2023-06-13 08:12] VITALS: BP 103/51; PULSE 75; RESP 19; TEMP 36.3; O2SAT 95
[2023-06-13] MEDS: Normal Saline Flush 10 ML SYR IVP ×2 (09:45→20:23)
[2023-06-13] MEDS: Torsemide 20 MG TAB 40 MG PO ×3 (09:45→21:45)
[2023-06-13] MEDS: Pregabalin 25 MG CAP 75 MG PO ×2 (09:46→20:22)
--- NOTE | 2023-06-13 09:46 | W.PM.PROGNOT ---
Date of Service Date of service: 06/13/23 Time of Service: 19:09 Assessment and Plan Assessment and plan (1) Constipation: Status: Acute Assessment and plan: Continue scheduled bowel management. Monitor for diarrhea no nausea or abdominal pain. (2) HCAP (healthcare-associated pneumonia): Status: Acute Assessment and plan: Stop vancomycin, and cefepime day 5 today. On oral zyvox and cefpodoxime to complete 7 days of therapy Was MRSA positive in wound to the lower body. Encourage pulmonary toilet. ON RA, no respiratory distress (3) UTI (urinary tract infection): Status: Acute Assessment and plan: In setting of a supra-pubic catheter being present; to be changed by Dr. Reeves as per his note today then repeat UA His urine culture is growing greater than 100,000 colony-forming units of gram-negative rods. Cefepime initially now on cefpodoxime , sensitivities are pending. Suprapubic not changed at of this AM, but will be addressed by urology (4) Left leg weakness: Status: Acute Assessment and plan: As well as acute on chronic back pain. MRI of the lumbar spine reviewed with [facility] neurosurgery: no evidence of cord compression on the images we sent and no obvious lateral disc herniation Recommendation: contrast MRI image of the lumbar spine in addition to also scanning cervical and thoracic spine with and without contrast. Patient refused despite premedication with benzo and opiods and was requesting open MRI Referral for open MRI on d/c (5) Acute on chronic renal insufficiency: Status: Acute Assessment and plan: Cr is up , hold torsemide this PM Continue Torsemide in AM Recheck Cr in am. (6) Hypotension: Status: Chronic Assessment and plan: Stable and continue to monitor (7) Anemia: Status: Chronic Assessment and plan: Acute on chronic macrocytic anemia. L thigh hematoma is possibly contributing. Hemoglobin is stable. CBC in AM The patient is on full anticoagulatio with lovenox Continue folate and iron . 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 In remission. See section on leg weakness : lumbar spine MRI completed and failed to complete MRI with contrast (11) Suprapubic catheter: Status: Chronic Assessment and plan: Followed by outpatient urology: See notes. (12) COPD (chronic obstructive pulmonary disease): Status: None Assessment and plan: mild exacerbation resolving as PNA treatment is close to completion Continue home meds and needed albuterol. On RA - continue to work with pulmonary toilet. Qualifiers: COPD type: emphysema Emphysema type: centrilobular Qualified Code(s): J43.2 - Centrilobular emphysema (13) DVT prophylaxis: Status: Acute Assessment and plan: He is on full dose anticoagulation with lovenox (14) Discharge planning issues: Status: Acute Assessment and plan: DNR/DNI, D/c on 06/14 to [facility] with [facility] order for open MRI with contrast On contact precautions. discussed with Dr Berg Subjective Subjective Patient reports: no new complaints, feels better, tolerating liquids well, tolerating a regular diet, voiding w/o difficulty, flatus, bowel movement, diarrhea (X1) and shortness of breath; denies nausea, vomiting or fever Exam Narrative Exam Narrative: Constitutional The patient is in bed comfortable and without acute distress and has average body habitus/is obese/ is thin. HENMT: Head is atraumatic, normocephalic, no lymphadenopathy. Facial structures with normal appearance Eyes: Well aligned, intact ROM Neck: Normal ROM, no meningeal signs Neuro:alert and oriented to self, person, place time and situation. 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 Resp: Normal respiratory pattern, speaks in full sentences, unlabored breathing, clear lung bilaterally Cardio: regular rhythm, S1, S2, no murmur, capillary refill<3 sec., bilateral radial and dorsalis pedis pulses are positive GI: Abdomen is large not distended, soft and non tender, bowel sounds are present : Negative Costovertebral angle tenderness, no bladder distension Back/spine/Pelvis: No back tenderness Integumentary: diffuse redness to abdomen and arms Extremities: strength 5/5 to bilateral upper , left lower 3/5 and right lower extremity 4/5; no new findings Psych: RASS 0, congruent mood and normal affect. Objective Last Vital Signs Temp 36.3 C L 06/13/23 08:12 Pulse 75 06/13/23 08:12 Resp 19 06/13/23 08:12 BP 103/51 L 06/13/23 08:12 Pulse Ox 95 06/13/23 08:12 Laboratory Results - last 24 hr 06/13/23 06:11 Random Vancomycin 43.6 Time Spent with Patient Time Spent with Patient: >50 minutes Time was spent: preparing to see the patient(eg.review tests), obtaining and/or reviewing separately otained hiistory, ordering medications,tests, procedures, referring, communicating with other health nurse behavioral health care, indepentently interpreting results, counseling the patient and care coordination
[2023-06-13] MEDS: Folic Acid 1 MG TAB PO (09:47)
[2023-06-13] MEDS: Docusate Sodium 100 MG CAP PO ×2 (09:48→20:23)
[2023-06-13] MEDS: Ferrous Sulfate 325 MG TAB PO (09:48)
[2023-06-13] MEDS: diazePAM 5 MG TAB PO (09:50)
--- NOTE | 2023-06-13 09:56 | PT.INPN ---
PT Notes Visit Reasons: Acute on chronic kidney injury, hypotension Inpatient Physical Therapy Progress Note Date: 06/13/23 Reporting Period: 06/05/23 - 06/13/23 Referring Doctor: Dr. Trivedi PT Orders: PT CONSULT: limited ability to ambulate Precautions: fall, standard Patient Profile/Admitting Diagnosis: 68-year-old wheelchair dependent male with history of emphysema, stage IV B-cell lymphoma, chronic back pain secondary to radiation, right-sided DVT, left femoral DVT on anticoagulation, CKD stage III, suprapubic catheter, COPD. He originally presented to the emergency department after a fall from his wheelchair prior to admission, after which he was able to get back in his chair, but then later unable to transfer. He was found by Home Health. Now admitted to acute care for management of acute on chronic renal insufficiency, hypotension and anemia. Awaiting MRI of cervical and thoracic spine later this morning. Social History/Home Situation: Lives alone [facility] apartments with a ramp to enter, rides the elevator to the second floor of the building where he lives. Receives home health assistance for 4 hours in the morning and 2 hours in the afternoon 7 days a week. Modified independent with all transfers using FWW at baseline. Uses motorized wheelchair for all mobility tasks. Goes to [place] 3x/week (Mondays/Wednesdays/Fridays). Does his grocery shopping independently to the grocery store from across where he lives during the non-winter months. States that he was walking during his last hospitalization just a couple weeks ago, and has continued to work on walking at home with help from PT. Does not walk on his own. Equipment Owned/DME: motorized chair, FWW Subjective: Isra states that he not up to doing much this morning. He has an MRI scheduled for 10:30 and is receiving anti-anxiety meds at time of consult. Objective: General Observation: Resting in bed, legs elevated, TEDs in place. Smith catheter. Mental Status: A&Ox3 Pain: baseline ROM: Right Upper Extremity: WFL Left Upper Extremity: WFL Right Lower Extremity: Knee motion allows 0-90*. Ankle motion allows 20* arc of motion. Hip flexion to 90* or greater. Left Lower Extremity: Knee motion allows 0-90*. Ankle motion allows 40* arc of motion. Hip flexion to 90* or greater. Strength: Right Upper Extremity: Shoulder flexion 4-/5. Biceps 4+/5. Triceps 4+/5. Vendor Analyst is strong and equal. Left Upper Extremity: Shoulder flexion 4-/5. Biceps 4+/5. Triceps 4+/5. Vendor Analyst is strong and equal. Right Lower Extremity: Hip flexion 3/5. Quads 3/5; functionally unable to perform SLR. HS 3-/5. Ankle DF 3-/5. Left Lower Extremity: Hip flexion 3/5. Quads 3/5; functionally unable to perform SLR. HS 3-/5. Ankle DF 3/5. Bed Mobility/Transfers: Declines transfers today due to pending MRI. Has demonstrated the following in previous sessions: Rolling L/R: Min assist with legs rolling to right Supine-sit: Min- mod assist with legs ? Sit-stand: CGA?and verbal cueing ? Stand-sit: CGA and verbal cueing ? Bed-Chair: Transferred with Stedy lift bed to recliner. Able to other wood processing machine operator Stedy Lift 1 x 30 seconds, 1 x 25 seconds and 1 x 20 seconds with CGA ? Gait: unable Balance: Static Sitting: good Dynamic Sitting: fair Static Standing: fair Dynamic Standing: unable Special Tests: Mobility Limitations Standardized Measure (unchanged from initial evaluation) [facility] AM-PAC 6 clicks Basic Mobility Inpatient Short Form: Raw Score: 11 CMS Score: 73% Informed Consent/Education: Patient instructed in purpose of PT consult and plan of care. Treatment: Therapeutic Exercises ([id number]): Instructed in seated exercises for LE strengthening and edema management. Patient to perform 1 minute of each of the following in sequence, performed hourly during waking hours. Written instruction left on white board: ankle pumps quad sets glute sets AA heel slides 10x each Encouraged sit-stand exercises and rolling, although patient declines. Encouraged to change position for offloading wounds, although again refuses. Assessment: Patient is a 68 year old male referred to physical therapy services for mobilization during acute care stay to manage acute on chronic renal failure. Patient presents with severe weakness and deconditioning, both of which are negatively impacting his mobility, which is limited at baseline. His LE edema is significantly improved. He is awaiting MRI later this morning to assess for cord compression. He requires skilled PT intervention to maximize mobility and independence. Will require SNF stay if mobility isn't significantly improving. Goals: Goals X1 week 1. Supine-Sit : independent (not met) 2. Sit-Supine : independent(not met) 3. Sit-Stand : supervision with FWW(not met) 4. Stand-Sit : supervision with FWW(not met) 5. Bed-Chair : CGA with FWW (not met) 6. Chair-Bed CGA with FWW(not met) 7. Gait : CGA with FWW x 25' (d/c goal) Plan of Care/Treatment Plan: Continue 1-2x/day, 7 days/week x 1 week. Plan of care has been reviewed with the UI SOFTWARE DEVELOPER providing the service under Physical Therapy direction. Initiate Physical Therapy intervention for strengthening, bed mobility, transfers, gait, stairs, balance training, use of assistive device. DISCHARGE RECOMMENDATIONS: SNF for continued rehabilitation once medically stable TREATMENT CODE/TIME: 50521 ([id number]) Please sign an return this page within 30 days if you agree with the above POC. Thank you! Physician Signature Date Kassandra Dougherty, PT, DPT [facility]
[2023-06-13] MEDS: MORPHine 4 MG/ML SYR 3 MG IVP (10:01)
[2023-06-13 11:45] VITALS: BP 103/63; PULSE 76; RESP 18; TEMP 36.5; O2SAT 91
[2023-06-13] MEDS: Lachydrin 12% LOTION 225 GM BTL TP ×2 (12:11→20:23)
--- NOTE | 2023-06-13 12:22 | W.PM.DS.N ---
Date of service: 06/13/23 Time of Service: 12:22 DS: Diagnosis Discharge Diagnosis (1) Constipation: Status: Acute (2) HCAP (healthcare-associated pneumonia): Status: Acute (3) UTI (urinary tract infection): Status: Acute (4) Left leg weakness: Status: Acute (5) Acute on chronic renal insufficiency: Status: Acute (6) Hypotension: Status: Chronic (7) Anemia: Status: Chronic (8) Hematoma: Status: Acute (9) Congestive heart disease: Status: Chronic (10) 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: Status: Chronic (11) Suprapubic catheter: Status: Chronic (12) COPD (chronic obstructive pulmonary disease): Status: None (13) DVT prophylaxis: Status: Acute (14) Discharge planning issues: Status: Acute Discharge Plan Discharge Details Reason For Visit: Acute on chronic kidney injury, hypotension Admit Date/Time: 06/04/23 16:27 Admit Provider: Michel Trivedi Attending Provider: Michel Trivedi Primary Care Provider: Renan Garcia Home Meds and New Rx's Prescriptions: No Action (DME) underpads [Bed Underpads] Pad See Rx Instructions .ROUTE .MEDSUPPLY Qty: 40 12RF Rx Instructions: As directed, for diarrhea or urinary leakage (DME) disposable gloves [Nitrile Exam Gloves] Misc See Rx Instructions .Route Qty: 100 12RF Rx Instructions: As directed, to change urinary pads and diapers (DME) Pull ups XXL See Rx Instructions .Route .MEDSUPPLY Qty: 60 11RF Rx Instructions: As directed fluocinonide 0.05 % cream 1 applic topical BID Qty: 60 3RF Rx Instructions: Apply to arms and abdomen metolazone 2.5 mg tablet 2.5 mg PO DAILY PRN (Reason: Fluid overload) Qty: 20 0RF Rx Instructions: Most call MD for permission to use when weight is over 216 at home (DME) nebulizers Misc See Rx Instructions .ROUTE .MEDSUPPLY Qty: 1 0RF Rx Instructions: As directed polyethylene glycol 3350 17 gram powder in packet 17 g PO BID PRN PRN (Reason: constipation) Qty: 100 0RF Stiolto Respimat 2.5-2.5 mcg/actuation mist 2 puff inhalation DAILY Qty: 4 12RF albuterol sulfate 90 mcg/actuation HFA aerosol inhaler 2 puff inhalation Q6H PRN (Reason: shortness of breath or wheezing) Qty: 8.5 12RF (DME) wedge pillow See Rx Instructions .Route .MEDSUPPLY Qty: 1 0RF Rx Instructions: As directed ascorbic acid (vitamin C) [Vitamin C] 500 mg tablet See Rx Instructions .ROUTE .COMPLEX Qty: 84 12RF Dose Instruction: TAKE 1 TABLET BY MOUTH THREE TIMES A DAY (DOSE INCREASE 07/09/21) Rx Instructions: TAKE 1 TABLET BY MOUTH THREE TIMES A DAY (DOSE INCREASE 07/09/21) torsemide 20 mg tablet 40 mg PO TID Qty: 540 3RF miconazole nitrate [Antifungal (miconazole)] 2 % cream 1 applic topical DAILY Qty: 28 6RF Rx Instructions: Apply under skin folds and to any affected area cholecalciferol (vitamin D3) 10 mcg (400 unit) tablet 20 mcg PO DAILY Qty: 180 3RF Rx Instructions: 800 U daily, per [facility] discharge dated 10/04/19 [facility]gc calcium polycarbophil [FiberCon] 625 mg tablet 1,250 mg PO DAILY Qty: 90 3RF spironolactone 25 mg tablet 25 mg PO DAILY Qty: 90 3RF ferrous sulfate 325 mg (65 mg iron) tablet See Rx Instructions .ROUTE .COMPLEX Qty: 28 11RF Dose Instruction: TAKE 1 TABLET BY MOUTH DAILY Rx Instructions: TAKE 1 TABLET BY MOUTH DAILY enoxaparin [Lovenox] 100 mg/mL syringe 100 mg subcut Q12H Qty: 30 1RF pregabalin [Lyrica] 75 mg capsule 75 mg PO BID Qty: 180 3RF acetaminophen [Tylenol] 325 mg Tablet 325 - 650 mg PO Q4H PRN PRNQty: 0 0RF potassium chloride 20 mEq tablet,ER particles/crystals 20 meq PO DAILY ammonium lactate 12 % Lotion 1 applic topical BID Qty: 400 1RF Rx Instructions: Apply to both arms zinc oxide 20 % Ointment 1 applic topical PRN PRNQty: 56 0RF clotrimazole 1 % Cream 1 applic topical PRN PRNQty: 45 0RF Rx Instructions: apply to excoriated area on buttock vits A and D-white pet-lanolin Ointment 1 applic topical PRN PRNQty: 56 0RF Rx Instructions: Apply to excoriated area on buttock docusate sodium [Colace] 100 mg Capsule 100 mg PO BID Qty: 60 0RF linezolid 600 mg tablet 600 mg PO BID Qty: 14 0RF DS: Summary Quality:SDOH Health Related Social Needs: No Data to Display DS: Data Vitals/I&O Vitals and I&O: Vital Signs Temperature 36.5 C 06/13/23 11:45 Temperature Source Tympanic 06/13/23 11:45 Pulse 76 06/13/23 11:45 Pulse Rhythm Regular 06/13/23 10:00 Respiratory Rate 18 06/13/23 11:45 Respiratory Effort Normal, Non-Labored 06/13/23 10:00 Respiratory Depth Normal 06/13/23 10:00 Respiratory Pattern Normal 06/13/23 10:00 Blood Pressure 103/63 06/13/23 11:45 Blood Pressure Mean 77 06/04/23 17:00 Pulse Oximetry 91 L 06/13/23 11:45 Oxygen Delivery Method Room Air 06/13/23 11:45 Oxygen Flow Rate 0 06/13/23 11:45 Pain Level 0 06/13/23 08:12 Comment RN Notified 06/12/23 22:37 Intake & Output 06/12/23 06/13/23 06/13/23 23:59 11:59 23:59 Intake Total 1240 / 1370 100 / 100 Output Total 1850 / 2650 600 / 600 Balance -610 / -1280 -500 / -500 Intake: IV 720 / 730 100 / 100 Oral 520 / 640 Output: Urine 1850 / 2650 600 / 600 Other: Urine Color Yellow Yellow Urine Appearance Sediment Clear Stool Size Small Stool Characteristics Hard Data Completed and Pending Labs on day of discharge: Labs from last 24 hours 06/13/23 06/13/23 15:30 06:11 Creatinine Pending Est GFR (CKD-EPI 2020) Pending Random Vancomycin Pending 43.6 PFSH All Active Problems (Updated 06/12/23 @ 11:21 by Savannah Martínez NP) Constipation (Acute) UTI (urinary tract infection) (Acute) HCAP (healthcare-associated pneumonia) (Acute) Discharge planning issues (Acute) DVT prophylaxis (Acute) Left leg weakness (Acute) Hematoma (Acute) Fall (Acute) Hypotension (Chronic) Acute on chronic renal insufficiency (Acute) Muscle weakness (generalized) (Acute) Atopic dermatitis (Acute) Pulmonary embolism (Chronic) Cellulitis (Acute) Cervical spondylosis without myelopathy (Acute) Perineal ulcer (Acute) Cervical spine arthritis (Acute) Cervical radicular pain (Acute) Viral conjunctivitis of both eyes (Acute) Hypoadrenergic postural hypotension (Acute) Dyspnea (Acute) Conductive hearing loss, bilateral (Acute) Chronic serous otitis media, bilateral (Acute) Recurrent serous otitis media of left ear (Acute) Intertrigo (Acute) Sensorineural hearing loss, bilateral (Acute) Conductive hearing loss in right ear (Acute) Congestive heart disease (Chronic 04/15/22) unspeciied HF chronicity, type Target weight 211# Chronic kidney disease, stage 3 unspecified (Chronic) Chronic serous otitis media, right ear (Acute) Nasal vestibulitis (Acute) Mixed hearing loss, bilateral (Acute) Hearing deficit (Acute) Acute serous otitis media of right ear (Acute) Onychomycosis (Acute) Chronic Urinary retention (Acute) Nephrotic syndrome (Acute) Pancreatic lesion (Acute) Hypoattenuation seen on CT 05/09 Fluid retention (Acute) Thrombosis of right saphenous vein (Acute) Left femoral vein DVT (Acute) Anxiety and depression (Chronic) 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 (Chronic) Stage IV, high risk, B cell lymphoma, NOS, with extra node involvement(bone, spinal cord,pleura) 09/09/21 ([facility] HEM/ONC) PET CT: No Active Lymphoma (Deauville score 1) Hypertrophic toenail (Acute) Anemia (Chronic) Cor pulmonale (chronic) (Chronic) Suprapubic catheter (Chronic) Incontinence of bowel (Acute) Acute kidney injury (Acute ~09/28/19) due to methotrexate therapy Weakness of both lower extremities (Acute) Hyperuricemia (Acute) Paroxysmal A-fib (Acute) Dehydration (Acute) Limited code status (Acute) Pleural effusion (Acute) Abdominal lymphadenopathy (Acute) DVT (deep venous thrombosis) (Chronic) Mediastinal adenopathy (Acute) Lung mass (Acute) COPD exacerbation (Acute) Respiratory distress (Acute) Overgrown toenails (Acute) DJD (degenerative joint disease) (Chronic) Depressive disorder (Chronic) Crohn's disease (Chronic) Self Reported Venous stasis ulcer of ankle limited to breakdown of skin (Acute) Venous stasis dermatitis of both lower extremities (Acute) Pulmonary HTN (Chronic) Mitral regurgitation (Chronic) Diastolic dysfunction (Chronic) Lymphedema of both lower extremities (Chronic) Ischemic ulcer of right ankle, limited to breakdown of skin (Acute) Smoking greater than 40 pack years (Chronic) cont on smoking cessation 08/2019 quit smoking; quit 2019 Venous insufficiency of both lower extremities (Chronic) as above Left varicocele (Acute 05/09/17) Microscopic hematuria (Acute 02/03/16) Osteoarthritis of hip (Acute 12/14/12) Right hydrocele (Acute 02/04/17) Osteoarthritis of hip (Acute 01/14/14) Total hip arthroplasty by Dr. Jose Nieves 01/14/14; Ceramic head; press fit. Mitral valve prolapse (Chronic) Microscopic hematuria (Acute) Medical History Emphysema lung Right femoral vein DVT Hypotension Venous stasis ulcer of right lower leg with edema of right lower leg Cellulitis of right leg Housing problems Tobacco use disorder Alcohol dependence in remission Anxiety 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 Ulcer of right lower extremity Gastroesophageal reflux disease Osteoarthritis Hypercholesterolemia BPH (benign prostatic hyperplasia) Surgical History Total replacement of hip bilateral Tonsillectomy and adenoidectomy Repair of umbilical hernia Repair of inguinal hernia Bilateral EGD - MAC Colonoscopy - MAC Cholecystectomy (11/01/17) Extraction of cataract Family History Mother Breast cancer Hypertension Anxiety Father CHF (congestive heart failure) Maternal Aunt Diabetes Social History Smoking/Tobacco Use Status: Former Tobacco Use Quit Date: 08/23/19 Tobacco: How many years used: 50 Quit status: quit date established (06/29/2019) Smoking risk assessment performed?: Yes Alcohol Intake: former Year quit: 2007 Drug use: Never Substance use type: does not use Adopted: No Caregiver/Support person: Yes Foster care: No Household members: other Details: Self Housing: apartment Number of Children: 0 number of grandchildren: 0 Communication Needs: None Education Level: vocational Do you need help understanding health information?: Often current occupation: Disabled Pets and animals: No Sexually active: No Do you think of yourself as: straight/heterosexual Current gender identity: male What is your relationship status?: How often do you talk on the phone with friends or family?: three or more times per week How often do you get together with friends or relatives?: decline to answer Do you belong to any clubs or organized social groups?: yes Panel score (0-1 are the most socially isolated patients): 2 What type of physical activity do you participate in: other Details: Stretching - ROM - arms and wheelchair-bound Duration: 15-30 minutes/day Frequency: 3-4 times per week Yakelin/Baptism: Anabaptism Special yakelin needs: No Seatbelt use: always Drive intox or ride w/intox electric pile driver operator: No (Does not apply) Do you feel safe at home: Yes Do you feel safe in your relationship?: Yes
--- NOTE | 2023-06-13 12:22 | W.UROLOGYCON ---
Date of service: 06/13/23 Time of Service: 12:22 Assessment and Plan Assessment and plan (1) Urinary retention: Status: Acute Assessment and plan: We will attempt to get one of the patient's silicone free catheters from his home health providers. Then, when I removed his indwelling catheter, I could do a flexible cystoscopy down through the suprapubic tract to further investigate the possibility of a bladder stone. I would then place the new catheter once the cystoscopy is completed. I will check with my office staff about obtaining the catheter and whether we can bring our cystoscopy equipment down to the medical surgical floor or if we should bring the patient up to our office. I expect that we will be able to change the catheter and do a local cystoscopy (no preparation needed) tomorrow History of Present Illness History of Present Illness Chief Complaint: Urinary retention Narrative: This is a 68-year-old gentleman who has a history of urinary retention. He has an indwelling suprapubic tube that is changed monthly. During a recent hospitalization, he had a CT scan that raise the question of a stone in his bladder. We were not able to tell whether there was a stone or not because of streak artifact caused by a hip prosthesis. My plan was to do a cystoscopy through the suprapubic tract for evaluation. He actually came into our office, but we did not do the scope because this gentleman has a history of a silicone allergy. He requires a catheter that is free of silicon and we did not have access to that type of catheter when he was seen in our office. Our plan was for him to move groin a catheter with him when he came into the office at his next appointment. He is now hospitalized with leg and back pain. He is due for a catheter change. [facility] All Active Problems (Updated 06/14/23 @ 00:05 by DEMETRIO LÓPEZ) UTI (urinary tract infection) (Acute) HCAP (healthcare-associated pneumonia) (Acute) Left leg weakness (Acute) Hematoma (Acute) Muscle weakness (generalized) (Acute) Atopic dermatitis (Acute) Pulmonary embolism (Chronic) Cellulitis (Acute) Cervical spondylosis without myelopathy (Acute) Perineal ulcer (Acute) Cervical spine arthritis (Acute) Cervical radicular pain (Acute) Viral conjunctivitis of both eyes (Acute) Hypoadrenergic postural hypotension (Acute) Dyspnea (Acute) Conductive hearing loss, bilateral (Acute) Chronic serous otitis media, bilateral (Acute) Recurrent serous otitis media of left ear (Acute) Intertrigo (Acute) Sensorineural hearing loss, bilateral (Acute) Conductive hearing loss in right ear (Acute) Chronic kidney disease, stage 3 unspecified (Chronic) Chronic serous otitis media, right ear (Acute) Nasal vestibulitis (Acute) Mixed hearing loss, bilateral (Acute) Hearing deficit (Acute) Acute serous otitis media of right ear (Acute) Onychomycosis (Acute) Chronic Urinary retention (Acute) Nephrotic syndrome (Acute) Pancreatic lesion (Acute) Hypoattenuation seen on CT 05/09 Fluid retention (Acute) Thrombosis of right saphenous vein (Acute) Left femoral vein DVT (Acute) Anxiety and depression (Chronic) Hypertrophic toenail (Acute) Cor pulmonale (chronic) (Chronic) Suprapubic catheter (Chronic) Incontinence of bowel (Acute) Acute kidney injury (Acute ~09/28/19) due to methotrexate therapy Weakness of both lower extremities (Acute) Hyperuricemia (Acute) Paroxysmal A-fib (Acute) Dehydration (Acute) Limited code status (Acute) Pleural effusion (Acute) Abdominal lymphadenopathy (Acute) DVT (deep venous thrombosis) (Chronic) Mediastinal adenopathy (Acute) Lung mass (Acute) COPD exacerbation (Acute) Respiratory distress (Acute) Overgrown toenails (Acute) DJD (degenerative joint disease) (Chronic) Depressive disorder (Chronic) Crohn's disease (Chronic) Self Reported Venous stasis ulcer of ankle limited to breakdown of skin (Acute) Venous stasis dermatitis of both lower extremities (Acute) Pulmonary HTN (Chronic) Mitral regurgitation (Chronic) Diastolic dysfunction (Chronic) Lymphedema of both lower extremities (Chronic) Ischemic ulcer of right ankle, limited to breakdown of skin (Acute) Smoking greater than 40 pack years (Chronic) cont on smoking cessation 08/2019 quit smoking; quit 2019 Venous insufficiency of both lower extremities (Chronic) as above Left varicocele (Acute 05/09/17) Microscopic hematuria (Acute 02/03/16) Osteoarthritis of hip (Acute 12/14/12) Right hydrocele (Acute 02/04/17) Osteoarthritis of hip (Acute 01/14/14) Total hip arthroplasty by Dr. Jose Nieves 01/14/14; Ceramic head; press fit. Mitral valve prolapse (Chronic) Microscopic hematuria (Acute) Medical History Emphysema lung Right femoral vein DVT Hypotension Venous stasis ulcer of right lower leg with edema of right lower leg Cellulitis of right leg Housing problems Tobacco use disorder Alcohol dependence in remission Anxiety 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 Ulcer of right lower extremity Gastroesophageal reflux disease Osteoarthritis Hypercholesterolemia BPH (benign prostatic hyperplasia) Surgical History Total replacement of hip bilateral Tonsillectomy and adenoidectomy Repair of umbilical hernia Repair of inguinal hernia Bilateral EGD - MAC Colonoscopy - MAC Cholecystectomy (11/01/17) Extraction of cataract Family History Mother Breast cancer Hypertension Anxiety Father CHF (congestive heart failure) Maternal Aunt Diabetes Social History Smoking/Tobacco Use Status: Former Tobacco Use Quit Date: 08/23/19 Tobacco: How many years used: 50 Quit status: quit date established (06/29/2019) Smoking risk assessment performed?: Yes Alcohol Intake: former Year quit: 2007 Drug use: Never Substance use type: does not use Adopted: No Caregiver/Support person: Yes Foster care: No Household members: other Details: Self Housing: apartment Number of Children: 0 number of grandchildren: 0 Communication Needs: None Education Level: vocational Do you need help understanding health information?: Often current occupation: Disabled Pets and animals: No Sexually active: No Do you think of yourself as: straight/heterosexual Current gender identity: male What is your relationship status?: How often do you talk on the phone with friends or family?: three or more times per week How often do you get together with friends or relatives?: decline to answer Do you belong to any clubs or organized social groups?: yes Panel score (0-1 are the most socially isolated patients): 2 What type of physical activity do you participate in: other Details: Stretching - ROM - arms and wheelchair-bound Duration: 15-30 minutes/day Frequency: 3-4 times per week Yakelin/Adventist: Latter-Day Special yakelin needs: No Seatbelt use: always Drive intox or ride w/intox assembly line driver: No (Does not apply) Do you feel safe at home: Yes Do you feel safe in your relationship?: Yes Results Last Vital Signs Temp 36.5 C 06/13/23 11:45 Pulse 76 06/13/23 11:45 Resp 18 06/13/23 11:45 BP 103/63 06/13/23 11:45 Pulse Ox 91 L 06/13/23 11:45 Labs 06/14/23 07:13 06/14/23 07:13 Labs: Laboratory Results - last 24 hr 06/13/23 06:11 Random Vancomycin 43.6
[2023-06-13 12:55] LABS: Abs Immature Grans 0.16 10^3/uL (0.0-0.06); Absolute Basophil Count 0.04 10^3/uL (0.0-0.2); Absolute Eosinophil Count 0.75 10^3/uL (0.0-0.7); Absolute Monocyte Count 0.91 10^3/uL (0.1-0.8); Absolute Neutrophil Count 6.26 10^3/uL (1.2-6.7); Basophils % 0.4; Eosinophils % 8.4; HCT 28.4 % (40.0-50.0); Immature Grans % 1.8; MCH 31.8 pg (27.0-33.0); MCHC 31.7 % (32.0-36.0); MCV 100 fL (80-95); MPV 10.3 fL (8.0-11.0); Monocytes % 10.2; Neutrophils % 70.2; Nucleated RBC 0.2 % (0.0-0.3); Platelet Count 160 10^3/uL (130-400); RBC 2.83 10^6/uL (4.36-5.78); RDW 17.1 % (11.8-14.1); RDW-SD 59.7 fL; WBC 8.92 10^3/uL (4.4-10.8)
[2023-06-13 13:05] LABS: Anion Gap 9.5 mmol/L (3-11); BUN 52 mg/dL (7-18); CO2 29.5 mmol/L (21.0-32.0); CREATININE 1.8 mg/dL (0.70-1.30); Calcium 9.2 mg/dL (8.5-10.1); Chloride 98 mmol/L (98-107); Glucose 120 mg/dL (74-106); Sodium 137 mmol/L (136-145)
[2023-06-13 15:31] VITALS: BP 95/56; PULSE 70; RESP 18; TEMP 36.3; O2SAT 93
--- NOTE | 2023-06-13 16:02 | CMPROGNOTE_ITS ---
Date of service: 06/13/23 Time of Service: 16:02 Care Management Progress Note Progress Note Text Progress Note Text: S/O: Isra was sitting up in bed when CM met with him. He was drowsy from having been pre-medicated with valium and morphine for his MRI. When he got to [facility] however, he refused to have the test done. As Isra has no symptoms that would indicate cord compression, osteomyelitis or other cervical process at this time, the MRI will be done as an outpatient once he returns home from rehab. Isra will be transferred to [facility] as planned, hopefully tomorrow. CM explained the plan to Isra who indicated unders tanding and agreement with the plan. A: Isra is a 68 year old man admitted on 06/04/23 with NAZARIO on CKD P:Anticipate Isra will be transferred to [facility] when medically cleared by provider. He will follow up with the facility provider and plan of care and transport via facility van. CM will follow and continue to assess for discharge needs. SDOH(Care Management) Screening Will the Patient Participate in the Screening?: Yes Do you worry about having a steady place to live?: no In the past 12 months, have you had to go without electric, gas, oil or water in your home?: no Have you or anyone in your house had to go without enough food to eat?: no Has lack of transportation kept you from medical appointments or from doing things needed for daily living?: no Has anyone in your support network made you feel unsafe for any reason?: no
[2023-06-13 16:33] LABS: CREATININE 1.8 mg/dL (0.70-1.30); Vancomycin, Random 30.4 ug/mL
--- NOTE | 2023-06-13 17:15 | PT.INNT ---
Date of service: 06/13/23 Time of Service: 14:02 PT Notes Visit Reasons: Acute on chronic kidney injury, hypotension Patient refuses therapy at 14:02 and 15:14 due to feeling out of sorts from the medication he received prior to an attemtped MRI.
[2023-06-13 19:43] VITALS: BP 106/59; PULSE 71; RESP 19; TEMP 36.9; O2SAT 95
[2023-06-13] MEDS: Cefpodoxime 200 MG TAB PO (20:22)
[2023-06-13] MEDS: Acetaminophen 325 MG TAB PO (20:22)
[2023-06-13] MEDS: Linezolid 600 MG TAB PO (20:23)
[2023-06-13] MEDS: Polyethylene Glycol 3350 17 GM PACKET PO (20:24)
[2023-06-13 22:17] VITALS: BP 90/60; PULSE 67; RESP 19; TEMP 36.8; O2SAT 92
[2023-06-14 03:35] VITALS: BP 90/50; PULSE 69; RESP 19; TEMP 36.1; O2SAT 96
[2023-06-14] MEDS: Enoxaparin 100 MG/ML SYR SC ×2 (06:20→18:00)
[2023-06-14 07:32] LABS: Abs Immature Grans 0.12 10^3/uL (0.0-0.06); Absolute Basophil Count 0.03 10^3/uL (0.0-0.2); Absolute Eosinophil Count 0.73 10^3/uL (0.0-0.7); Absolute Lymphocyte Count 0.84 10^3/uL (1.2-3.4); Basophils % 0.4; Eosinophils % 8.9; HCT 25.8 % (40.0-50.0); HGB 8.2 g/dL (13.5-17.5); Immature Grans % 1.5; Lymphocytes % 10.2; MCH 31.7 pg (27.0-33.0); MCHC 31.8 % (32.0-36.0); MCV 100 fL (80-95); MPV 10.4 fL (8.0-11.0); Monocytes % 13.4; Neutrophils % 65.6; Platelet Count 158 10^3/uL (130-400); RBC 2.59 10^6/uL (4.36-5.78); RDW 16.9 % (11.8-14.1); RDW-SD 58.8 fL; WBC 8.22 10^3/uL (4.4-10.8)
[2023-06-14 07:42] LABS: BUN 56 mg/dL (7-18); Calcium 9.2 mg/dL (8.5-10.1); Chloride 100 mmol/L (98-107); Estimated GFR 36.13 (mL/min/1.73m2); Glucose 118 mg/dL (74-106); Potassium 4.1 mmol/L (3.5-5.1); Sodium 138 mmol/L (136-145)
[2023-06-14 07:44] VITALS: BP 94/58; PULSE 80; RESP 19; TEMP 36.1; O2SAT 92
[2023-06-14 08:13] LABS: Anisocytosis 1+; Diff Comment RBC Morph Reviewed
[2023-06-14 08:14] LABS: Polychromasia Present
[2023-06-14] MEDS: Tiotropium/Olodaterol 10 PUFF INHALER 2 PUFF IH (08:55)
[2023-06-14] MEDS: Polyethylene Glycol 3350 17 GM PACKET PO ×2 (09:20→19:33)
[2023-06-14] MEDS: Folic Acid 1 MG TAB PO (09:21)
[2023-06-14] MEDS: Acetaminophen 325 MG TAB PO ×3 (09:21→18:00)
[2023-06-14] MEDS: Cefpodoxime 200 MG TAB PO ×2 (09:21→19:33)
[2023-06-14] MEDS: Ferrous Sulfate 325 MG TAB PO (09:21)
[2023-06-14] MEDS: Pregabalin 25 MG CAP 75 MG PO ×2 (09:21→19:33)
[2023-06-14] MEDS: Linezolid 600 MG TAB PO ×2 (09:22→19:33)
[2023-06-14] MEDS: Docusate Sodium 100 MG CAP PO ×2 (09:22→19:33)
[2023-06-14] MEDS: Normal Saline Flush 10 ML SYR IVP ×2 (09:24→19:33)
[2023-06-14] MEDS: Lachydrin 12% LOTION 225 GM BTL TP ×2 (09:24→19:34)
[2023-06-14 11:19] VITALS: BP 90/52; PULSE 61; RESP 20; TEMP 36.6; O2SAT 91
[2023-06-14] MEDS: Torsemide 20 MG TAB 40 MG PO ×2 (13:42→19:33)
--- NOTE | 2023-06-14 14:29 | W.PM.PROGNOT ---
Date of Service Date of service: 06/14/23 Time of Service: 14:29 Assessment and Plan Assessment and plan (1) Urinary retention: Status: Acute (2) Bladder calculi: Status: Acute Assessment and plan: His catheter was successfully changed. He will not be due for repeat for about a month. We did identify stones in his bladder. On a nonemergent basis, we will do a cystoscopy in the operating room and extract for treatment of bladder stones. This would probably be best arranged catheter change is due. I will fill out the surgical paperwork and have my office staff contact the patient to make arrangements for now patient procedure. I do not believe the finding of bladder stones will delay his discharge from the hospital for this admission. Subjective Subjective Interval history since last seen: We were able to obtain a catheter for this patient so he is agreeable to a cystoscopy through the suprapubic tract as part of an evaluation for possible bladder stones. We will change his suprapubic catheter. Exam Narrative Exam Narrative: He appears comfortable. Objective Last Vital Signs Temp 36.6 C 06/14/23 11:19 Pulse 61 06/14/23 11:19 Resp 20 06/14/23 11:19 BP 90/52 L 06/14/23 11:19 Pulse Ox 91 L 06/14/23 11:19 Laboratory Results - last 24 hr 06/13/23 06/14/23 16:10 07:13 WBC 8.22 RBC 2.59 L Hgb 8.2 L Hct 25.8 L MCV 100 H MCH 31.7 MCHC 31.8 L RDW 16.9 H Plt Count 158 MPV 10.4 Immature Gran % 1.5 Neutrophils % 65.6 Lymphocytes % 10.2 Monocytes % 13.4 Eosinophils % 8.9 Basophils % 0.4 Nucleated RBC % 0.0 Absolute Neutrophils 5.40 Absolute Lymphocytes 0.84 L Absolute Monocytes 1.10 H Absolute Eosinophils 0.73 H Absolute Basophils 0.03 RBC Morphology See Below Polychromasia Present Anisocytosis 1+ Sodium 138 Potassium 4.1 Chloride 100 Carbon Dioxide 28.0 Anion Gap 10.0 BUN 56 H Creatinine 1.8 H 2.0 H Est GFR (CKD-EPI 2020) 41.00 36.13 Glucose 118 H Calcium 9.2 Random Vancomycin 30.4 Cystoscopy Text: The patient is seen in the hospital bed. He was placed in the supine position. The balloon on the indwelling suprapubic tube was deflated and 5 cc of sterile water was removed. The catheter was then removed. The suprapubic stoma site was prepped with Betadine. Flexible cystoscope was passed through the suprapubic tract and the bladder. The bladder was inspected with the deflection of the scope. At the base of the bladder, multiple stones were seen. Both ureteral orifices were identified. No blood was seen coming from either side. There was some inflammatory changes in the bladder mucosa just within the entrance from the stoma site. Presumably, this is due to catheter irritation. The bladder was then filled with irrigant the cystoscope was removed. The 18 Kazakh catheter was passed through the suprapubic into the bladder. The catheter balloon was inflated with 10 cc of sterile water. The catheter was hooked to gravity drainage He tolerated this procedure well with no complications. Change Bladder Catheter Text: See documentation under cystoscopy tab Time Spent with Patient Time Spent with Patient: 25-34 minutes Time was spent: preparing to see the patient(eg.review tests), indepentently interpreting results, counseling the patient and care coordination
--- NOTE | 2023-06-14 14:32 | PTTR_ITS ---
Date of service: 06/14/23 Time of Service: 14:01 PT Notes Visit Reasons: Acute on chronic kidney injury, hypotension Inpatient Physical Therapy Treatment Note [facility] Date: 06/14/23 PRECAUTIONS: Fall, CONTACT, activity as tolerated. SUBJECTIVE: Patient reports still feeling the after effects of the morphine he took yesterday for the attempted MRI. Reports that he has a Urology consult alex jasiel in the next 30 minutes. Describes the procedure of having his suprapubic catheter access scoped. OBJECTIVE: Supine in bed with pillow under left hip to offload pressure. Suprapubic catheter in place. Agreeable to therapy. ? PAIN: yes, complains of pain generally, does not specify location or number. VITALS: monitored by nursing staff. ? Therapeutic Activities ([id number]): Direct one-on-one instruction in dynamic activities to improve functional performance. ? BED MOBILITY/TRANSFERS? Rolling L/R: mod assist x1 Supine-sit: min assist to unweight left leg, min assist via handhold for patient to pull himself up to sitting. ? Sit-supine: min assist to maneuver bilateral legs into bed. ? Sit-stand: CGA from elevated bed. Patient uses both hands on walker to stand rather than pushing up from bed. ? Stand-sit: CGA? Patient able to take several small side steps up towards head of bed - 3 steps, rest, 2 steps, covering a distance of about 15 inches total. Provided skilled cues and instruction on performance and technique throughout. ASSESSMENT:? Patient reports feeling tired, weak, short of breath after therapy today. Reports being somewhat pleased that he was able to get out of bed with so little assistance. PLAN: Continue global strengthening per plan of care until patient is medically cleared for discharge. Patient would benefit from a skilled rehab stay prior to returning home to maximize his functional mobility and independence, minimize fall risk and risk of recurrent hospitalization. TREATMENT CODE/TIME: 28 minutes beginning at 14:01
[2023-06-14 15:57] VITALS: BP 94/60; PULSE 70; RESP 19; TEMP 36.3; O2SAT 90
--- NOTE | 2023-06-14 18:29 | CMPROGNOTE_ITS ---
Date of service: 06/14/23 Time of Service: 18:29 Care Management Progress Note Progress Note Text Progress Note Text: S/O: Isra was sitting up in bed when CM met with him. He was scheduled to transfer to [facility] today, however they are again closed for admissions. Isra was offered placement at another [facility] and stated he would be willing to go to [facility] or [facility]. Awaiting further developments about bed availability at those facilities. Isra had a bedside cysto performed by Dr. Reeves with exchange of his suprapubic catheter today. The procedure went well and there were no complications.Isra has evidence of some bladder stones which will be addressed at a future date. A: Isra is a 68 year old man admitted on 06/04/23 with NAZARIO on CKD P:Anticipate Isra will be transferred to Rehab when medically cleared by provide and when a bed is available. He will follow up with the facility provider and plan of care and transport via facility van. CM will follow and continue to assess for discharge needs. SDOH(Care Management) Screening Will the Patient Participate in the Screening?: Yes Do you worry about having a steady place to live?: no In the past 12 months, have you had to go without electric, gas, oil or water in your home?: no Have you or anyone in your house had to go without enough food to eat?: no Has lack of transportation kept you from medical appointments or from doing things needed for daily living?: no Has anyone in your support network made you feel unsafe for any reason?: no
[2023-06-14 19:38] VITALS: BP 91/49; PULSE 78; RESP 18; TEMP 37.1; O2SAT 92
--- NOTE | 2023-06-14 19:47 | PGE_ITS ---
Date of Service Date of service: 06/14/23 Time of Service: 09:00 Assessment and Plan Assessment and plan (1) Constipation: Assessment and plan: Continue scheduled bowel management. Monitor for diarrhea no nausea or abdominal pain. (2) HCAP (healthcare-associated pneumonia): Status: Acute Assessment and plan: Stop vancomycin, and cefepime at day 5 On oral zyvox and cefpodoxime for one more day to complete 7 days of therapy on 06/15/2023 Was MRSA positive in wound to the lower body. Encourage pulmonary toilet. On RA, no respiratory distress (3) UTI (urinary tract infection): Status: Acute Assessment and plan: In setting of a supra-pubic catheter being present; changed by Dr. Reeves as per his note today needs changing in a month as well as cystoscopic managemnt of baldder stones, please see Dr. Reeves's notes. UA pending His urine culture is growing gram-negative rods. Cefepime initially now on cefpodoxime unitil 06/15 (4) Left leg weakness: Status: Acute Assessment and plan: As well as acute on chronic back pain.left hip hematoma noticed on prior imaging. The plan remains unchanged from yesterday MRI of the lumbar spine reviewed with [facility] neurosurgery: no evidence of cord compression on the images we sent and no obvious lateral disc herniation Recommendation: contrast MRI image of the lumbar spine in addition to also scanning cervical and thoracic spine with and without contrast. Patient refused despite premedication with benzo and opiods and was requesting open MRI Referral for open MRI on d/ date to be arranged by rehab facility (5) Anemia: Assessment and plan: Acute on chronic macrocytic anemia. L thigh hematoma is possibly contributing. Hemoglobin is stable. CBC in 2 days The patient is on full anticoagulation with lovenox Continue folate and iron . (6) Hematoma: Status: Acute Assessment and plan: as above (7) Acute on chronic renal insufficiency: Assessment and plan: Cr is up , IVF 500ml cristalloids , hold torsemide this HS and adjsuting dose for 06/15 Continue Torsemide in AM Recheck Cr in am. On therapeutic dosing of Lovenox might affect his baseline Cr. 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 See section on leg weakness : lumbar spine MRI completed and failed to complete MRI with contrast, OPT open MRI on d/c (11) Suprapubic catheter: Status: Chronic Assessment and plan: Followed by outpatient urology: See notes from Dr Reeves (12) COPD (chronic obstructive pulmonary disease): Assessment and plan: mild exacerbation resolving as PNA treatment completion on 06/15 Continue home meds and needed albuterol. On RA - continue to monitor and work with pulmonary toilet. Qualifiers: COPD type: emphysema Emphysema type: centrilobular Qualified Code(s): J43.2 - Centrilobular emphysema (13) DVT prophylaxis: Status: Deleted Assessment and plan: He is on full dose anticoagulation with lovenox for right femoral vein (14) Discharge planning issues: Status: Deleted Assessment and plan: DNR/DNI, D/c on 06/15 to SNF with OPT order for open MRI with contrast for his spine On contact precautions. discussed with Dr Berg Subjective Subjective Patient reports: no new complaints, feels better, pain is less, tolerating liquids well, tolerating a regular diet, voiding w/o difficulty, flatus, bowel movement and shortness of breath; denies diarrhea, blood in stool, nausea, vomiting or fever Exam Narrative Exam Narrative: Constitutional The patient is without acute distress Neuro:alert and oriented tX4. 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 Objective Last Vital Signs Temp 37.1 C 06/14/23 19:38 Pulse 78 06/14/23 19:38 Resp 18 06/14/23 19:38 BP 91/49 L 06/14/23 19:38 Pulse Ox 92 06/14/23 19:38 Laboratory Results - last 24 hr 06/14/23 07:13 WBC 8.22 RBC 2.59 L Hgb 8.2 L Hct 25.8 L MCV 100 H MCH 31.7 MCHC 31.8 L RDW 16.9 H Plt Count 158 MPV 10.4 Immature Gran % 1.5 Neutrophils % 65.6 Lymphocytes % 10.2 Monocytes % 13.4 Eosinophils % 8.9 Basophils % 0.4 Nucleated RBC % 0.0 Absolute Neutrophils 5.40 Absolute Lymphocytes 0.84 L Absolute Monocytes 1.10 H Absolute Eosinophils 0.73 H Absolute Basophils 0.03 RBC Morphology See Below Polychromasia Present Anisocytosis 1+ Sodium 138 Potassium 4.1 Chloride 100 Carbon Dioxide 28.0 Anion Gap 10.0 BUN 56 H Creatinine 2.0 H Est GFR (CKD-EPI 2020) 36.13 Glucose 118 H Calcium 9.2 Time Spent with Patient Time Spent with Patient: >50 minutes Time was spent: preparing to see the patient(eg.review tests), obtaining and/or reviewing separately otained hiistory, ordering medications,tests, procedures, referring, communicating with other health healthcare business analyst, indepentently interpreting results, counseling the patient and care coordination
[2023-06-14] MEDS: Lactated Ringers 500 ML 150 ML IV (20:44)
[2023-06-14 21:13] LABS: Bilirubin Negative (Negative); Blood Moderate (Negative); Clarity Turbid (Clear); Glucose Negative (Negative); Ketones Negative (Negative); Leukocyte Esterase Moderate (Negative); Nitrite Negative (Negative); Urobilinogen 0.2 mg/dL (Up to 0.2); pH 5.5 (5-8)
[2023-06-14 21:24] LABS: Bacteria Moderate HPF (Negative); Crystals Negative HPF (Negative); Epithelial Cells Negative HPF (Negative); Mucus Trace (Negative); RBC 0-2 HPF (0-2); WBC 20-50 HPF (0-5)
[2023-06-14 21:25] LABS: C & S Indicated? Yes
[2023-06-14 22:51] VITALS: BP 102/57; PULSE 68; RESP 18; TEMP 36.6; O2SAT 92
[2023-06-14] MEDS: Calcium Carbonate *TUMS* 500 MG CHEW 1000 MG PO (22:52)
[2023-06-15 03:47] VITALS: BP 97/59; PULSE 73; RESP 18; TEMP 37.2; O2SAT 90
[2023-06-15] MEDS: Enoxaparin 100 MG/ML SYR SC (06:11)
[2023-06-15 07:35] LABS: Anion Gap 10.7 mmol/L (3-11); BUN 59 mg/dL (7-18); CO2 27.3 mmol/L (21.0-32.0); CREATININE 2.2 mg/dL (0.70-1.30); Calcium 9.3 mg/dL (8.5-10.1); Chloride 98 mmol/L (98-107); Estimated GFR 32.23 (mL/min/1.73m2); Glucose 111 mg/dL (74-106); Potassium 4.1 mmol/L (3.5-5.1); Sodium 136 mmol/L (136-145)
[2023-06-15 07:54] VITALS: BP 90/49; PULSE 77; RESP 16; TEMP 37.2; O2SAT 94
[2023-06-15 08:18] VITALS: BP 91/55; PULSE 73; RESP 12; TEMP 37.4; O2SAT 93
[2023-06-15] MEDS: Pregabalin 25 MG CAP 75 MG PO (08:33)
[2023-06-15] MEDS: Lachydrin 12% LOTION 225 GM BTL TP (08:33)
[2023-06-15] MEDS: Normal Saline Flush 10 ML SYR IVP (08:33)
[2023-06-15] MEDS: Acetaminophen 325 MG TAB PO (08:33)
[2023-06-15] MEDS: Docusate Sodium 100 MG CAP PO (08:34)
[2023-06-15] MEDS: Folic Acid 1 MG TAB PO (08:34)
[2023-06-15] MEDS: Ferrous Sulfate 325 MG TAB PO (08:34)
[2023-06-15] MEDS: Linezolid 600 MG TAB PO (08:34)
[2023-06-15] MEDS: Cefpodoxime 200 MG TAB PO (08:34)
[2023-06-15] MEDS: Torsemide 20 MG TAB 40 MG PO (08:34)
[2023-06-15 08:58] LABS: Bilirubin Negative (Negative); Blood Moderate (Negative); Clarity Clear (Clear); Glucose Negative (Negative); Ketones Negative (Negative); Leukocyte Esterase Trace (Negative); Nitrite Negative (Negative); Specific Gravity 1.015 (1.005-1.025); Urobilinogen 0.2 mg/dL (Up to 0.2)
[2023-06-15 09:24] LABS: Bacteria Few HPF (Negative); Crystals Moderate Amorphous HPF (Negative); Epithelial Cells Negative HPF (Negative); Mucus Trace (Negative); Other Cells Negative (Negative)
[2023-06-15 09:25] LABS: C & S Indicated? Yes
[2023-06-15 09:28] VITALS: O2SAT 93
[2023-06-15] MEDS: Tiotropium/Olodaterol 10 PUFF INHALER 2 PUFF IH (09:28)
--- NOTE | 2023-06-15 10:48 | DSE_ITS ---
Date of service: 06/15/23 Time of Service: 10:48 DS: Diagnosis Discharge Diagnosis (1) HCAP (healthcare-associated pneumonia): Status: Acute (2) UTI (urinary tract infection): Status: Acute (3) Left leg weakness: Status: Acute (4) Hematoma: Status: Acute (5) Suprapubic catheter: Status: Chronic (6) COPD (chronic obstructive pulmonary disease): Discharge Plan Disposition Patient Disposition: Intermediate Facility(SNF) Condition: Improving Discharge Details Reason For Visit: Acute on chronic kidney injury, hypotension Admit Date/Time: 06/04/23 16:27 Admit Provider: Michel Trivedi Attending Provider: Michel Trivedi Primary Care Provider: Renan Garcia [facility] Hospital Course: This 68 years old male patient with a past medical history significant for but not limited to history of DVT to the right lower extremity with failed apixaban and now on Lovenox at therapeutic doses at home, congestive heart failure, vertigo, chronic kidney disease, B cell lymphoma without reoccurrence, who presented to the [facility] ED on 05/22/23 via EMS for evaluation of low blood pressure. The patient reported checking his blood pressure daily with typical values around 100/50; he reported blood pressure reading at home was 72/43. After informing his home health nurse of this finding, the patient was advised to come to the emergency department. As per the ED provider note the patient had not had any recent increased fatigue, denied chest pain or shortness of breath. EMS noted patient to be hypoxic with a saturation in the upper 80s, he was placed on oxygen and saturations were > 90%. Patient was give IV fluid in the ED and his blood pressure improved. The EKG in the ED did not show any sign of ischemia, he was in a sinus rhythm with heart rate 60s. The chest abdomen and pelvis CT did not show any acute findings or evidence of pulmonary embolus. Labs in the ED remarkable for ANC of 7.55, sodium of 130, BUN 104, creatinine 2.3, ESR 29, CRP 5.90, procalcitonin 0.5. Patient was septic, found to have UTI. His suprapubic catheter was changed. Patient was found to have a rash on legs, arms and torso with exoricated areas. Patient reported it itches and he scraches it. Patient was seen by surgery and a skin biopsy was taken from right upper arm. Patient also arrived with unstageable pressure ulcer to buttock. A w ound culture was collected. A wound consult was completed. The patient was started on piperacillin tazobactam. The patient was admitted to the medical surgical floor for evaluation and management of cellulitis, sepsis, NAZARIO. Patient was seen by Dr Reeves who agreed with treatment. Patient was seen by palliative care. Patient is DNR/DNI. Patient was evaluated by PT. He should continue global strengthening and activity tolerance training. Home health PT was added to discharge plan. Patient was found to have MRSA in his wound culture and was started on vancomycin and cefazolin. Blood cultures remained negative for 96 hours. A multitude of ointments were used on the patients buttock as well as his bilat arms, both did start healing some areas. Patient was afebrile, normotensive, he runs low SBP ~ 100, no tachycardia, afebrile, awake, alert, pleasant, cooperative. Patient is discharged back to home, stable with 7 day course of Linezolid. Patient should resume home medications. Patient should have home health nursing resumed for care of the indwelling suprapubic catheter and care for his rash and pressure injury to buttock. He should stay off his buttock as much as possible. Patient was in agreement to discharge plan and was discharged to home with home health services. Patient returned to the [facility] emergency department om 06/04/23 for evaluation of left thigh leg and back pain. Patient stated he fell out of his wheelchair a few days prior and hit his head but did not lose consciousness. He reported experiencing weakness but denied any headache, lightheadedness, dizziness, chills, fever, nausea vomiting or diarrhea. In the emergency department the patient was noted as appearing weak, initially having blood pressure of 88/39 for which he was given 1 L normal saline and had improvement of his blood pressure up to 90/51. CBC was notable for hemoglobin of 9.8 which is decreased from day of discharge and 13.6, and CMP showed a BUN of 77 and a creatinine of 3.8 both of which are increased from day of discharge of 19 and 1.1. Upon reviewing patient's discharge summary it appears that his home diuretic regimen was continued at discharge, and additionally patient stated he had poor p.o. intake. Cervical spine and face and lumbar spine CT did not show any acute findings except for lumbar spine CT showed possible hematoma of left iliac us muscle. Patient was admitted for anemia secondary to hematoma and dehydration secondary to poor po intake and diuretics. MRI of the lumbar spine reviewed with [facility] neurosurgery: no evidence of cord compression on the images we sent and no obvious lateral disc herniation Recommendation: contrast MRI image of the lumbar spine in addition to also scanning cervical and thoracic spine with and without contrast. Patient refused despite premedication with benzo and opiods and was requesting open MRI Referral for open MRI on d/c date to be arranged by rehab facility. Patient was seen by Dr Reeves, urology: He had cystoscopy and bladder stones were seen, his suprapubic catheter was changed. Catheter should be changed in one month. Hemoglobin is stable. Creatinine is at baseline. Patient is being treated for pneumonia; he received vancomyin for 3 days and cefepime for 4 days, he has had cefpodoxime for 2 days, and Linezolid for 2 days and has completed a 7 day course in total. Patient has a DVT right femoral vein - he should start apixaban 10 mg twice a day for 7 days ( 14 doses ) , starting today then 5 mg twice a day Patient has a stage 2 pressure injury on his right buttocks; apply medihoney and foam island dressing Home Meds and New Rx's Prescriptions: New apixaban 5 mg tablet 10 mg PO BID Qty: 100 0RF Rx Instructions: 10 mg twice a day for 7 days, then 5 mg twice a day Continued (DME) underpads [Bed Underpads] Pad See Rx Instructions .ROUTE .MEDSUPPLY Qty: 40 12RF Rx Instructions: As directed, for diarrhea or urinary leakage (DME) disposable gloves [Nitrile Exam Gloves] Misc See Rx Instructions .Route Qty: 100 12RF Rx Instructions: As directed, to change urinary pads and diapers (DME) Pull ups XXL See Rx Instructions .Route .MEDSUPPLY Qty: 60 11RF Rx Instructions: As directed fluocinonide 0.05 % cream 1 applic topical BID Qty: 60 3RF Rx Instructions: Apply to arms and abdomen metolazone 2.5 mg tablet 2.5 mg PO DAILY PRN (Reason: Fluid overload) Qty: 20 0RF Rx Instructions: Most call MD for permission to use when weight is over 216 at home (DME) nebulizers [facility] See Rx Instructions .ROUTE .MEDSUPPLY Qty: 1 0RF Rx Instructions: As directed polyethylene glycol 3350 17 gram powder in packet 17 g PO BID PRN PRN (Reason: constipation) Qty: 100 0RF Stiolto Respimat 2.5-2.5 mcg/actuation mist 2 puff inhalation DAILY Qty: 4 12RF albuterol sulfate 90 mcg/actuation HFA aerosol inhaler 2 puff inhalation Q6H PRN (Reason: shortness of breath or wheezing) Qty: 8.5 12RF (DME) wedge pillow See Rx Instructions .Route .MEDSUPPLY Qty: 1 0RF Rx Instructions: As directed ascorbic acid (vitamin C) [Vitamin C] 500 mg tablet See Rx Instructions .ROUTE .COMPLEX Qty: 84 12RF Dose Instruction: TAKE 1 TABLET BY MOUTH THREE TIMES A DAY (DOSE INCREASE 07/09/21) Rx Instructions: TAKE 1 TABLET BY MOUTH THREE TIMES A DAY (DOSE INCREASE 07/09/21) torsemide 20 mg tablet 40 mg PO TID Qty: 540 3RF miconazole nitrate [Antifungal (miconazole)] 2 % cream 1 applic topical DAILY Qty: 28 6RF Rx Instructions: Apply under skin folds and to any affected area cholecalciferol (vitamin D3) 10 mcg (400 unit) tablet 20 mcg PO DAILY Qty: 180 3RF Rx Instructions: 800 U daily, per [facility] discharge dated 10/04/19 cgc calcium polycarbophil [FiberCon] 625 mg tablet 1,250 mg PO DAILY Qty: 90 3RF spironolactone 25 mg tablet 25 mg PO DAILY Qty: 90 3RF ferrous sulfate 325 mg (65 mg iron) tablet See Rx Instructions .ROUTE .COMPLEX Qty: 28 11RF Dose Instruction: TAKE 1 TABLET BY MOUTH DAILY Rx Instructions: TAKE 1 TABLET BY MOUTH DAILY enoxaparin [Lovenox] 100 mg/mL syringe 100 mg subcut Q12H Qty: 30 1RF pregabalin [Lyrica] 75 mg capsule 75 mg PO BID Qty: 180 3RF acetaminophen [Tylenol] 325 mg Tablet 325 - 650 mg PO Q4H PRN PRNQty: 0 0RF potassium chloride 20 mEq tablet,ER particles/crystals 20 meq PO DAILY ammonium lactate 12 % Lotion 1 applic topical BID Qty: 400 1RF Rx Instructions: Apply to both arms zinc oxide 20 % Ointment 1 applic topical PRN PRNQty: 56 0RF clotrimazole 1 % Cream 1 applic topical PRN PRNQty: 45 0RF Rx Instructions: apply to excoriated area on buttock vits A and D-white pet-lanolin Ointment 1 applic topical PRN PRNQty: 56 0RF Rx Instructions: Apply to excoriated area on buttock docusate sodium [Colace] 100 mg Capsule 100 mg PO BID Qty: 60 0RF linezolid 600 mg tablet 600 mg PO BID Qty: 14 0RF Discharge Instructions Additional Instructions: Start Apixaban 10 mg twice a day for 7 days starting today, 06/15, then 5 mg tw ice a day. Stand Alone Forms: Nursing Discharge Form Referrals: Renan Garcia DO [Primary Care Provider] - (F/u 1 week post discharge) Activity:: Activity as Tolerated Equipment/Supplies:: W/C Diet:: heart healthy renal Discharge Orders Discharge Orders: Discharge Order (Routine); Ordered 06/15/23 Ordered By: Dayanna Rodriguez Discharge Data Discharge Date/Time-TO BE ENTERED AT DEPARTURE: 06/15/23 11:57 DS: Summary Time Spent with Patient providing and/or coordinating discharge services: Greater than 30 minutes Status at Discharge Functional status at discharge: wheelchair bound Overall status at discharge: patient is progressing back to baseline Mental Status: mental status grossly normal Speech and Movement: speech and movement normal Mood: congruent mood Affect: normal affect Quality:SDOH Health Related Social Needs: No Data to Display Exam Psych Mental Status: mental status grossly normal Speech and Movement: speech and movement normal Mood: congruent mood Affect: normal affect DS: Data Vitals/I&O Vitals and I&O: Vital Signs Temperature 37.4 C 06/15/23 08:18 Temperature Source Tympanic 06/15/23 08:18 Pulse 73 06/15/23 08:18 Pulse Rhythm Regular 06/14/23 22:21 Respiratory Rate 12 06/15/23 08:18 Respiratory Effort Normal, Non-Labored 06/14/23 22:21 Respiratory Depth Normal 06/14/23 22:21 Respiratory Pattern Normal 06/14/23 22:21 Blood Pressure 91/55 L 06/15/23 08:18 Blood Pressure Mean 77 06/04/23 17:00 Pulse Oximetry 93 06/15/23 09:28 Oxygen Delivery Method Room Air 06/15/23 09:28 Oxygen Flow Rate 0 06/15/23 09:28 Pain Level 0 06/15/23 07:54 Comment RN Notified 06/12/23 22:37 Intake & Output 06/14/23 06/14/23 06/15/23 11:59 23:59 11:59 Intake Total 250 / 250 500 / 500 Output Total 350 / 350 1350 / 1350 Balance -350 / -100 250 / -100 -850 / -850 Intake: IV 500 / 500 Oral 250 / 250 Output: Urine 350 / 350 1350 / 1350 Other: Urine Color Yellow Yellow Yellow Urine Appearance Clear Clear Comment Suprapubic catheter Suprapubic catheter changed today by Dr. Reeves (urology) during planed cystoscopy. Stool Size Small Large Stool Characteristics Formed Formed Brown Black Data Completed and Pending Labs on day of discharge: Labs from last 24 hours 06/15/23 06/15/23 06/14/23 08:45 06:55 09:00 Sodium 136 Potassium 4.1 Chloride 98 Carbon Dioxide 27.3 Anion Gap 10.7 BUN 59 H Creatinine 2.2 H Est GFR (CKD-EPI 2020) 32.23 Glucose 111 H Calcium 9.3 Urine Color Yellow Yellow Urine Clarity Clear Turbid Urine pH 6.0 5.5 Ur Specific [place] 1.015 1.010 Urine Protein 30 H 30 H Urine Ketones Negative Negative Urine Blood Moderate H Moderate H Urine Nitrite Negative Negative Urine Bilirubin Negative Negative Urine Urobilinogen 0.2 0.2 Ur Leukocyte Esterase Trace H Moderate H Urine RBC 3-5 H 0-2 Urine WBC 10-20 H 20-50 H Ur Epithelial Cells Negative Negative Urine Crystals Moderate Amorphous Negative Urine Bacteria Few Moderate Urine Casts 20-50 Fine Granular 10-20 Fine Granular Urine Mucus Trace Trace Urine Other Negative Ur Culture Indicated? Yes Yes Urine Glucose Negative Negative 06/15/23 08:45 Urine - Reflex from Urine Culture - Pending 06/14/23 09:00 Urine - Reflex from Urine Culture - Pending Preliminary micro results at discharge 06/15/23 08:45 Urine Culture - Pending Urine - Reflex from 06/14/23 09:00 Urine Culture - Pending Urine - Reflex from Ua PFSH All Active Problems (Updated 06/15/23 @ 11:29 by Dayanna Rodriguez NP) Bladder calculi (Acute) UTI (urinary tract infection) (Acute) HCAP (healthcare-associated pneumonia) (Acute) Left leg weakness (Acute) Hematoma (Acute) Muscle weakness (generalized) (Acute) Atopic dermatitis (Acute) Pulmonary embolism (Chronic) Cellulitis (Acute) Cervical spondylosis without myelopathy (Acute) Perineal ulcer (Acute) Cervical spine arthritis (Acute) Cervical radicular pain (Acute) Viral conjunctivitis of both eyes (Acute) Hypoadrenergic postural hypotension (Acute) Dyspnea (Acute) Conductive hearing loss, bilateral (Acute) Chronic serous otitis media, bilateral (Acute) Recurrent serous otitis media of left ear (Acute) Intertrigo (Acute) Sensorineural hearing loss, bilateral (Acute) Conductive hearing loss in right ear (Acute) Chronic kidney disease, stage 3 unspecified (Chronic) Chronic serous otitis media, right ear (Acute) Nasal vestibulitis (Acute) Mixed hearing loss, bilateral (Acute) Hearing deficit (Acute) Acute serous otitis media of right ear (Acute) Onychomycosis (Acute) Chronic Urinary retention (Acute) Nephrotic syndrome (Acute) Pancreatic lesion (Acute) Hypoattenuation seen on CT 05/09 Fluid retention (Acute) Thrombosis of right saphenous vein (Acute) Left femoral vein DVT (Acute) Anxiety and depression (Chronic) Hypertrophic toenail (Acute) Cor pulmonale (chronic) (Chronic) Suprapubic catheter (Chronic) Incontinence of bowel (Acute) Acute kidney injury (Acute ~09/28/19) due to methotrexate therapy Weakness of both lower extremities (Acute) Hyperuricemia (Acute) Paroxysmal A-fib (Acute) Dehydration (Acute) Limited code status (Acute) Pleural effusion (Acute) Abdominal lymphadenopathy (Acute) DVT (deep venous thrombosis) (Chronic) Mediastinal adenopathy (Acute) Lung mass (Acute) COPD exacerbation (Acute) Respiratory distress (Acute) Overgrown toenails (Acute) DJD (degenerative joint disease) (Chronic) Depressive disorder (Chronic) Crohn's disease (Chronic) Self Reported Venous stasis ulcer of ankle limited to breakdown of skin (Acute) Venous stasis dermatitis of both lower extremities (Acute) Pulmonary HTN (Chronic) Mitral regurgitation (Chronic) Diastolic dysfunction (Chronic) Lymphedema of both lower extremities (Chronic) Ischemic ulcer of right ankle, limited to breakdown of skin (Acute) Smoking greater than 40 pack years (Chronic) cont on smoking cessation 08/2019 quit smoking; quit 2019 Venous insufficiency of both lower extremities (Chronic) as above Left varicocele (Acute 05/09/17) Microscopic hematuria (Acute 02/03/16) Osteoarthritis of hip (Acute 12/14/12) Right hydrocele (Acute 02/04/17) Osteoarthritis of hip (Acute 01/14/14) Total hip arthroplasty by Dr. Jose Nieves 01/14/14; Ceramic head; press fit. Mitral valve prolapse (Chronic) Microscopic hematuria (Acute) Medical History Emphysema lung Right femoral vein DVT Hypotension Venous stasis ulcer of right lower leg with edema of right lower leg Cellulitis of right leg Housing problems Tobacco use disorder Alcohol dependence in remission Anxiety 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 Ulcer of right lower extremity Gastroesophageal reflux disease Osteoarthritis Hypercholesterolemia BPH (benign prostatic hyperplasia) Surgical History Total replacement of hip bilateral Tonsillectomy and adenoidectomy Repair of umbilical hernia Repair of inguinal hernia Bilateral EGD - MAC Colonoscopy - MAC Cholecystectomy (11/01/17) Extraction of cataract Family History Mother Breast cancer Hypertension Anxiety Father CHF (congestive heart failure) Maternal Aunt Diabetes Social History Smoking/Tobacco Use Status: Former Tobacco Use Quit Date: 08/23/19 Tobacco: How many years used: 50 Quit status: quit date established (06/29/2019) Smoking risk assessment performed?: Yes Alcohol Intake: former Year quit: 2007 Drug use: Never Substance use type: does not use Adopted: No Caregiver/Support person: Yes Foster care: No Household members: other Details: Self Housing: apartment Number of Children: 0 number of grandchildren: 0 Communication Needs: None Education Level: vocational Do you need help understanding health information?: Often current occupation: Disabled Pets and animals: No Sexually active: No Do you think of yourself as: straight/heterosexual Current gender identity: male What is your relationship status?: How often do you talk on the phone with friends or family?: three or more times per week How often do you get together with friends or relatives?: decline to answer Do you belong to any clubs or organized social groups?: yes Panel score (0-1 are the most socially isolated patients): 2 What type of physical activity do you participate in: other Details: Stretching - ROM - arms and wheelchair-bound Duration: 15-30 minutes/day Frequency: 3-4 times per week Yakelin/Catholic: Spiritism Special yakelin needs: No Seatbelt use: always Drive intox or ride w/intox special events driver: No (Does not apply) Do you feel safe at home: Yes Do you feel safe in your relationship?: Yes Time Spent with Patient Time Spent with Patient: 45-69 minutes Time was spent: preparing to see the patient(eg.review tests), ordering medications,tests, procedures, referring, communicating with other health resident care coordinator, indepentently interpreting results, counseling the patient and care coordination
--- NOTE | 2023-06-15 17:07 | CMDISCH_ITS ---
Date of service: 06/15/23 Time of Service: 17:07 LACE Index Scoring Tool Questions: Length of Stay (in days): 7 - 13 Was the patient admitted via the E.D.?: Yes Comorbidities: Congestive Heart Failure, Any Tumor and Liver or Renal Disease E.D. Visits: 2 Answers: Total Score: 15 Risk of Readmission: High Risk Care Management Discharge Plan Reason for Hospitalization: acute on chronic renal insufficiency Discharge Plan: [facility] [place] for short term rehab prior to returning home. He will follow up with the facility provider and plan of care and transport via RCT wheelchair van coordinated by CM. Patient/Family Education Needs: Review discharge instructions, activity, follow up plan, limitations, discuss Ask Me Three Services Needed at Discharge: Shelter Facility and Transportation SDOH Health Related Social Needs: No Data to Display
== END 2023-06-15 11:57 | disposition skilled nursing facility (03) | DRG 682 ==
LOC: ER 16:45 → MS 17:19
PROVIDERS: Internal Medicine; Nurse Practitioner Acute Care; Admitting Provider Family Medicine; Emergency Provider Nurse Practitioner Family; PCP Family Medicine; Visit Provider Family Medicine
DX: N17.9 Acute kidney failure, unspecified (principal); J18.9 Pneumonia, unspecified organism; N39.0 Urinary tract infection, site not specified; C85.19 Unspecified B-cell lymphoma, extranodal and solid organ sites; I50.32 Chronic diastolic (congestive) heart failure; J44.1 Chronic obstructive pulmonary disease with (acute) exacerbation; I82.411 Acute embolism and thrombosis of right femoral vein; R33.9 Retention of urine, unspecified; Z93.51 Cutaneous-vesicostomy status; Z96.643 Presence of artificial hip joint, bilateral; Z87.891 Personal history of nicotine dependence; R53.1 Weakness; M89.29 Other disorders of bone development and growth, multiple sites; M54.9 Dorsalgia, unspecified; Z86.718 Personal history of other venous thrombosis and embolism; Z79.01 Long term (current) use of anticoagulants; J43.2 Centrilobular emphysema; R60.0 Localized edema; I95.9 Hypotension, unspecified; S00.83XA Contusion of other part of head, initial encounter; M79.652 Pain in left thigh; Z86.711 Personal history of pulmonary embolism; M47.812 Spondylosis without myelopathy or radiculopathy, cervical region; M47.22 Other spondylosis with radiculopathy, cervical region; H90.3 Sensorineural hearing loss, bilateral; N18.30 Chronic kidney disease, stage 3 unspecified; F41.9 Anxiety disorder, unspecified; I48.0 Paroxysmal atrial fibrillation; I27.20 Pulmonary hypertension, unspecified; I34.0 Nonrheumatic mitral (valve) insufficiency; I89.0 Lymphedema, not elsewhere classified; I87.2 Venous insufficiency (chronic) (peripheral); F10.21 Alcohol dependence, in remission; K21.9 Gastro-esophageal reflux disease without esophagitis; E78.00 Pure hypercholesterolemia, unspecified; N40.0 Benign prostatic hyperplasia without lower urinary tract symptoms; W05.0XXA Fall from non-moving wheelchair, initial encounter; Z66 Do not resuscitate; R21 Rash and other nonspecific skin eruption; D53.9 Nutritional anemia, unspecified; L89.310 Pressure ulcer of right buttock, unstageable; Z22.322 Carrier or suspected carrier of Methicillin resistant Staphylococcus aureus; Y95 Nosocomial condition; K59.00 Constipation, unspecified; N21.0 Calculus in bladder; E86.0 Dehydration; L89.312 Pressure ulcer of right buttock, stage 2
CPT/HCPCS: 51705; 00123; 36415; 73552; 80048; 80053; 84145; 85027; 87637; 94640; 96361; 96374; 97110; 97162; 97530; 99222; 99232; 99285; 70450; 70486; 71045; 72125; 72131; 72148; 80202; 81003; 81015; 82565; 82607; 82728; 82746; 83540; 83550; 83735; 85025; 87086; 94664; 94668; 94760; 99223; 99233; 99238; J0692; J1650; J2060; J2270; J3372

== ENCOUNTER → 2023-06-13 07:42 | Outpatient (BNVA) | payer MEDICARE, MEDICAID, SELFPAY | PROVIDERS: PCP Family Medicine; Referring Provider Family Medicine; Visit Provider Urology ==

== ENCOUNTER 2023-07-02 14:02 | Outpatient (REF) | payer MEDICARE, MEDICAID, SELFPAY ==
[2023-07-02 15:35] LABS: Abs Immature Grans 0.06 10^3/uL (0.0-0.06); Absolute Basophil Count 0.03 10^3/uL (0.0-0.2); Absolute Eosinophil Count 0.21 10^3/uL (0.0-0.7); Absolute Lymphocyte Count 1.27 10^3/uL (1.2-3.4); Absolute Monocyte Count 0.39 10^3/uL (0.1-0.8); Absolute Neutrophil Count 7.46 10^3/uL (1.2-6.7); Basophils % 0.3; Eosinophils % 2.2; HCT 23.6 % (40.0-50.0); Immature Grans % 0.6; Lymphocytes % 13.5; MCH 32.7 pg (27.0-33.0); MCHC 29.7 % (32.0-36.0); MCV 110 fL (80-95); MPV 10.5 fL (8.0-11.0); Monocytes % 4.1; Neutrophils % 79.3; Platelet Count 255 10^3/uL (130-400); RBC 2.14 10^6/uL (4.36-5.78); RDW 21.3 % (11.8-14.1); RDW-SD 84.8 fL; WBC 9.42 10^3/uL (4.4-10.8)
[2023-07-02 15:54] LABS: Anion Gap 9.9 mmol/L (3-11); BUN 35 mg/dL (7-18); CO2 27.1 mmol/L (21.0-32.0); CREATININE 1.6 mg/dL (0.70-1.30); Calcium 8.8 mg/dL (8.5-10.1); Chloride 99 mmol/L (98-107); Estimated GFR 47.23 (mL/min/1.73m2); Glucose 149 mg/dL (74-106); Sodium 136 mmol/L (136-145)
[2023-07-02 16:04] LABS: Anisocytosis 1+; Diff Comment RBC Morph Reviewed; Hypochromasia 1+; Macrocytosis 1+; Polychromasia Present
== END 2023-07-02 14:03 | disposition home or self-care (01) ==
LOC: LBN 14:02
PROVIDERS: PCP Family Medicine; Referring Provider Family Medicine; Visit Provider Family Medicine
DX: I50.32 Chronic diastolic (congestive) heart failure (principal); N17.9 Acute kidney failure, unspecified; J44.9 Chronic obstructive pulmonary disease, unspecified
CPT/HCPCS: 80048; 83735; 85025

== ENCOUNTER 2023-07-02 17:03 | Emergency (ER) | payer MEDICARE, MEDICAID, SELFPAY ==
[2023-07-02] VITALS (9 sets, daily range): BP systolic 83–101; BP diastolic 35–59; PULSE 66–77; RESP 18–20; TEMP 36.1–36.7; O2SAT 92–96
--- NOTE | 2023-07-02 17:16 | ED.GENADUL_ITS ---
Discharge Plan Disposition Patient Disposition: Home Condition: Improving Discharge Details Chief Complaint: GenMedical Clinical Impression: Anemia Primary Care Provider: Renan Garcia ED Provider: Juan J Schwartz Home Meds and New Rx's Prescriptions: No Action (DME) underpads [Bed Underpads] Pad See Rx Instructions .ROUTE .MEDSUPPLY Qty: 40 12RF Rx Instructions: As directed, for diarrhea or urinary leakage (DME) disposable gloves [Nitrile Exam Gloves] Misc See Rx Instructions .Route Qty: 100 12RF Rx Instructions: As directed, to change urinary pads and diapers (DME) Pull ups XXL See Rx Instructions .Route .MEDSUPPLY Qty: 60 11RF Rx Instructions: As directed fluocinonide 0.05 % cream 1 applic topical BID Qty: 60 3RF Rx Instructions: Apply to arms and abdomen metolazone 2.5 mg tablet 2.5 mg PO DAILY PRN (Reason: Fluid overload) Qty: 20 0RF Rx Instructions: Most call MD for permission to use when weight is over 216 at home (DME) nebulizers Misc See Rx Instructions .ROUTE .MEDSUPPLY Qty: 1 0RF Rx Instructions: As directed polyethylene glycol 3350 17 gram powder in packet 17 g PO BID PRN PRN (Reason: constipation) Qty: 100 0RF Stiolto Respimat 2.5-2.5 mcg/actuation mist 2 puff inhalation DAILY Qty: 4 12RF albuterol sulfate 90 mcg/actuation HFA aerosol inhaler 2 puff inhalation Q6H PRN (Reason: shortness of breath or wheezing) Qty: 8.5 12RF (DME) wedge pillow See Rx Instructions .Route .MEDSUPPLY Qty: 1 0RF Rx Instructions: As directed torsemide 20 mg tablet 40 mg PO TID Qty: 540 3RF miconazole nitrate [Antifungal (miconazole)] 2 % cream 1 applic topical DAILY Qty: 28 6RF Rx Instructions: Apply under skin folds and to any affected area cholecalciferol (vitamin D3) 10 mcg (400 unit) tablet 20 mcg PO DAILY Qty: 180 3RF Rx Instructions: 800 U daily, per [facility] discharge dated 10/04/19 [facility] calcium polycarbophil [FiberCon] 625 mg tablet 1,250 mg PO DAILY Qty: 90 3RF spironolactone 25 mg tablet 25 mg PO DAILY Qty: 90 3RF ferrous sulfate 325 mg (65 mg iron) tablet See Rx Instructions .ROUTE .COMPLEX Qty: 28 11RF Dose Instruction: TAKE 1 TABLET BY MOUTH DAILY Rx Instructions: TAKE 1 TABLET BY MOUTH DAILY enoxaparin [Lovenox] 100 mg/mL syringe 100 mg subcut Q12H Qty: 30 1RF pregabalin [Lyrica] 75 mg capsule 75 mg PO BID Qty: 180 3RF ascorbic acid (vitamin C) [Vitamin C] 500 mg tablet See Rx Instructions .ROUTE .COMPLEX Qty: 84 12RF Dose Instruction: TAKE 1 TABLET BY MOUTH THREE TIMES A DAY (DOSE INCREASE 07/09/21) Rx Instructions: TAKE 1 TABLET BY MOUTH THREE TIMES A DAY (DOSE INCREASE 07/09/21) docusate sodium [Colace] 100 mg capsule 100 mg PO BID Qty: 60 0RF apixaban 5 mg tablet 10 mg PO BID Qty: 100 0RF Rx Instructions: 10 mg twice a day for 7 days, then 5 mg twice a day acetaminophen [Tylenol] 325 mg Tablet 325 - 650 mg PO Q4H PRN PRNQty: 0 0RF potassium chloride 20 mEq tablet,ER particles/crystals 20 meq PO DAILY ammonium lactate 12 % Lotion 1 applic topical BID Qty: 400 1RF Rx Instructions: Apply to both arms zinc oxide 20 % Ointment 1 applic topical PRN PRNQty: 56 0RF clotrimazole 1 % Cream 1 applic topical PRN PRNQty: 45 0RF Rx Instructions: apply to excoriated area on buttock vits A and D-white pet-lanolin Ointment 1 applic topical PRN PRNQty: 56 0RF Rx Instructions: Apply to excoriated area on buttock linezolid 600 mg tablet 600 mg PO BID Qty: 14 0RF Discharge Instructions Instructions: Anemia (ED), Blood Transfusion (DC) HPI General Date/Time Provider Initiated Documentation: 07/02/23 17:05 . HPI Narrative: 68-year-old male history of A-fib on apixaban referred in from care facility for evaluation of anemia outpatient labs showing hemoglobin of 7, patient has history of needing a transfusion. Asymptomatic at this point. Related Data Home Medications Medication Instructions Recorded Confirmed acetaminophen 325 mg tablet 325 - 650 mg (1 - 2 x 325 mg) PO 07/02/19 07/02/23 (Tylenol) Q4H PRN PRN #0 tabs nebulizers #1 ea 02/05/21 07/02/23 disposable gloves (Nitrile Exam #100 ea 10/08/21 07/02/23 Gloves) underpads (Bed Underpads) #40 ea 10/08/21 07/02/23 polyethylene glycol 3350 17 gram 17 g PO BID PRN PRN constipation 05/25/22 07/02/23 oral powder packet #100 ea albuterol sulfate 90 mcg/actuation 2 puff inhalation Q6H PRN 10/01/22 07/02/23 aerosol inhaler shortness of breath or wheezing #8.5 grams tiotropium 2.5 mcg-olodaterol 2.5 2 puff inhalation DAILY #4 grams 10/01/22 07/02/23 mcg/actuation mist for inhalation (Stiolto Respimat) torsemide 20 mg tablet 40 mg (2 x 20 mg) PO TID #540 tabs 11/01/22 07/02/23 miconazole nitrate 2 % topical 1 applic topical DAILY #28 grams 01/28/23 07/02/23 cream (Antifungal (miconazole)) calcium polycarbophil 625 mg 1,250 mg (2 x 625 mg) PO DAILY #90 02/22/23 07/02/23 tablet (FiberCon) tabs cholecalciferol (vitamin D3) 10 20 mcg (2 x 10 mcg (400 unit)) PO 02/22/23 07/02/23 mcg (400 unit) tablet DAILY #180 tabs spironolactone 25 mg tablet 25 mg PO DAILY #90 tabs 03/03/23 07/02/23 Pull ups #60 ea 04/05/23 07/02/23 ferrous sulfate 325 mg (65 mg See Rx Instructions .Route 04/21/23 07/02/23 iron) tablet .COMPLEX #28 tabs wedge pillow #1 ea 05/03/23 07/02/23 enoxaparin 100 mg/mL subcutaneous 100 mg subcut Q12H #30 mL 05/13/23 07/02/23 syringe (Lovenox) pregabalin 75 mg capsule (Lyrica) 75 mg PO BID #180 caps 05/16/23 07/02/23 potassium chloride 20 mEq 20 meq PO DAILY 05/24/23 07/02/23 tablet,extended release(part/cryst) ammonium lactate 12 % lotion 1 applic topical BID #400 grams 05/27/23 07/02/23 clotrimazole 1 % topical cream 1 applic topical PRN PRN #45 grams 05/27/23 07/02/23 linezolid 600 mg tablet 600 mg PO BID #14 tabs 05/27/23 07/02/23 vitamins A and D-white 1 applic topical PRN PRN #56 grams 05/27/23 07/02/23 petrolatum-lanolin topical ointment zinc oxide 20 % topical ointment 1 applic topical PRN PRN #56 grams 05/27/23 07/02/23 fluocinonide 0.05 % topical cream 1 applic topical BID #60 grams 06/02/23 07/02/23 metolazone 2.5 mg tablet 2.5 mg PO DAILY PRN Fluid overload 06/02/23 07/02/23 #20 tabs apixaban 5 mg tablet 10 mg (2 x 5 mg) PO BID #100 tabs 06/15/23 07/02/23 ascorbic acid (vitamin C) 500 mg See Rx Instructions .Route 06/16/23 07/02/23 tablet (Vitamin C) .COMPLEX #84 tabs docusate sodium 100 mg capsule 100 mg PO BID #60 caps 06/23/23 07/02/23 (Colace) Previous Rx's Medication Instructions Recorded acetaminophen 325 mg tablet 325 - 650 mg (1 - 2 x 325 mg) PO 07/02/19 (Tylenol) Q4H PRN PRN #0 tabs nebulizers #1 ea 02/05/21 disposable gloves (Nitrile Exam #100 ea 10/08/21 Gloves) underpads (Bed Underpads) #40 ea 10/08/21 polyethylene glycol 3350 17 gram 17 g PO BID PRN PRN constipation 05/25/22 oral powder packet #100 ea albuterol sulfate 90 mcg/actuation 2 puff inhalation Q6H PRN 10/01/22 aerosol inhaler shortness of breath or wheezing #8.5 grams tiotropium 2.5 mcg-olodaterol 2.5 2 puff inhalation DAILY #4 grams 10/01/22 mcg/actuation mist for inhalation (Stiolto Respimat) torsemide 20 mg tablet 40 mg (2 x 20 mg) PO TID #540 tabs 11/01/22 miconazole nitrate 2 % topical 1 applic topical DAILY #28 grams 01/28/23 cream (Antifungal (miconazole)) calcium polycarbophil 625 mg 1,250 mg (2 x 625 mg) PO DAILY #90 02/22/23 tablet (FiberCon) tabs cholecalciferol (vitamin D3) 10 20 mcg (2 x 10 mcg (400 unit)) PO 02/22/23 mcg (400 unit) tablet DAILY #180 tabs spironolactone 25 mg tablet 25 mg PO DAILY #90 tabs 03/03/23 Pull ups #60 ea 04/05/23 ferrous sulfate 325 mg (65 mg See Rx Instructions .Route 04/21/23 iron) tablet .COMPLEX #28 tabs wedge pillow #1 ea 05/03/23 enoxaparin 100 mg/mL subcutaneous 100 mg subcut Q12H #30 mL 05/13/23 syringe (Lovenox) pregabalin 75 mg capsule (Lyrica) 75 mg PO BID #180 caps 05/16/23 ammonium lactate 12 % lotion 1 applic topical BID #400 grams 05/27/23 clotrimazole 1 % topical cream 1 applic topical PRN PRN #45 grams 05/27/23 linezolid 600 mg tablet 600 mg PO BID #14 tabs 05/27/23 vitamins A and D-white 1 applic topical PRN PRN #56 grams 05/27/23 petrolatum-lanolin topical ointment zinc oxide 20 % topical ointment 1 applic topical PRN PRN #56 grams 05/27/23 fluocinonide 0.05 % topical cream 1 applic topical BID #60 grams 06/02/23 metolazone 2.5 mg tablet 2.5 mg PO DAILY PRN Fluid overload 06/02/23 #20 tabs apixaban 5 mg tablet 10 mg (2 x 5 mg) PO BID #100 tabs 06/15/23 ascorbic acid (vitamin C) 500 mg See Rx Instructions .Route 06/16/23 tablet (Vitamin C) .COMPLEX #84 tabs docusate sodium 100 mg capsule 100 mg PO BID #60 caps 06/23/23 (Colace) Allergies Allergy/AdvReac Type Severity Reaction Status Date / Time levofloxacin [From Levaquin] AdvReac Intermediate purpura Verified 07/02/23 17:09 silicone AdvReac Intermediate Hives; Rash Verified 07/02/23 17:09 Sulfa (Sulfonamide AdvReac Intermediate Itching Verified 07/02/23 17:09 Antibiotics) Seasonal Allegies Allergy Intermediate Runny nose Uncoded 07/02/23 17:09 General Stated Complaint: GenMedical DARRELL: 3 Review of Systems Narrative: Review of Systems Constitutional: negative Eyes: negative ENT: negative Cardiovascular: negative Respiratory: negative Gastrointestinal: negative : negative Musculoskeletal: negative Skin: negative Neurologic: negative Psych: negative Exam Narrative Exam Narrative: Physical Examination General: alert, awake, cooperative, resting comfortably, no acute distress HEENT: normocephalic, atraumatic; PERRL, EOM intact, conjunctiva normal; no nasa l discharge; moist mucous membranes, oral and pharyngeal mucosa normal, tolerating secretions Neck: supple, trachea midline; full ROM Chest: normal to inspection Respiratory: normal respiratory effort, speaking in full sentences, clear to auscultation, no wheezing, rales or rhonchi Cardiac: regular rate, regular rhythm, S1S2 intact, no murmurs rubs or gallops GI: abdomen soft, non-tender, non-distended; no palpable mass or hepatosplenomegaly; normal appearing stool guaiac negative Skin: no lesions, rashes or trauma appreciated Neuro: AAOx3, normal speech, moving all extremities Psych: Appropriate mood and affect Course Vital Signs Vital signs: Vital Signs Temperature 36.2 C L 07/02/23 17:03 Pulse 74 07/02/23 17:03 Respiratory Rate 18 07/02/23 17:03 Temperature 36.2 C L 07/02/23 17:03 Temperature Source Skin 07/02/23 17:03 Pulse 74 07/02/23 17:03 Respiratory Rate 18 07/02/23 17:03 Respiratory Effort Normal 07/02/23 17:11 Blood Pressure Position Sitting 07/02/23 17:03 Medical Decision Making 68-year-old male history of A-fib on apixaban referred in from care facility for evaluation of asymptomatic anemia, per outpatient labs patient's hemoglobin was found to be 7 today, history of needing transfusion, no symptoms such as chest pain shortness of breath nausea vomiting lightheadedness or other systemic signs of illness. Normal stool per patient and on examination normal formed stool, guaiac negative. Consider anemia of chronic disease lower suspicion for traumatic injury or active GI bleed. Will obtain basic labs type and screen coags, if patient is anemic will transfuse here in department, likely discharge home 21: 00 patient resting comfortably patient has completed his transfusion. No transfusion reaction. Quality:SDOH Health Related Social Needs: No Data to Display PFSH All Active Problems (Updated 07/02/23 @ 21:01 by Juan J Schwartz MD) Anemia (Chronic) HCAP (healthcare-associated pneumonia) (Acute) Atopic dermatitis (Acute) Pulmonary embolism (Chronic) Cellulitis (Acute) Cervical spondylosis without myelopathy (Acute) Perineal ulcer (Acute) Cervical spine arthritis (Acute) Cervical radicular pain (Acute) Viral conjunctivitis of both eyes (Acute) Hypoadrenergic postural hypotension (Acute) Dyspnea (Acute) Conductive hearing loss, bilateral (Acute) Chronic serous otitis media, bilateral (Acute) Recurrent serous otitis media of left ear (Acute) Intertrigo (Acute) Sensorineural hearing loss, bilateral (Acute) Conductive hearing loss in right ear (Acute) Chronic serous otitis media, right ear (Acute) Nasal vestibulitis (Acute) Mixed hearing loss, bilateral (Acute) Hearing deficit (Acute) Acute serous otitis media of right ear (Acute) Onychomycosis (Acute) Chronic Nephrotic syndrome (Acute) Pancreatic lesion (Acute) Hypoattenuation seen on CT 05/09 Fluid retention (Acute) Thrombosis of right saphenous vein (Acute) Left femoral vein DVT (Acute) Anxiety and depression (Chronic) Hypertrophic toenail (Acute) Cor pulmonale (chronic) (Chronic) Incontinence of bowel (Acute) Acute kidney injury (Acute ~09/28/19) due to methotrexate therapy Weakness of both lower extremities (Acute) Hyperuricemia (Acute) Paroxysmal A-fib (Acute) Dehydration (Acute) Limited code status (Acute) Pleural effusion (Acute) Abdominal lymphadenopathy (Acute) DVT (deep venous thrombosis) (Chronic) Mediastinal adenopathy (Acute) Lung mass (Acute) COPD exacerbation (Acute) Respiratory distress (Acute) Overgrown toenails (Acute) DJD (degenerative joint disease) (Chronic) Depressive disorder (Chronic) Crohn's disease (Chronic) Self Reported Venous stasis ulcer of ankle limited to breakdown of skin (Acute) Mitral regurgitation (Chronic) Lymphedema of both lower extremities (Chronic) Ischemic ulcer of right ankle, limited to breakdown of skin (Acute) Venous insufficiency of both lower extremities (Chronic) as above Left varicocele (Acute 05/09/17) Microscopic hematuria (Acute 02/03/16) Osteoarthritis of hip (Acute 12/14/12) Right hydrocele (Acute 02/04/17) Osteoarthritis of hip (Acute 01/14/14) Total hip arthroplasty by Dr. Jose Nieves 01/14/14; Ceramic head; press fit. Mitral valve prolapse (Chronic) Microscopic hematuria (Acute) Medical History Emphysema lung Right femoral vein DVT Hypotension Venous stasis ulcer of right lower leg with edema of right lower leg Cellulitis of right leg Housing problems Tobacco use disorder Alcohol dependence in remission Anxiety 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 Ulcer of right lower extremity Gastroesophageal reflux disease Osteoarthritis Hypercholesterolemia BPH (benign prostatic hyperplasia) Surgical History Total replacement of hip bilateral Tonsillectomy and adenoidectomy Repair of umbilical hernia Repair of inguinal hernia Bilateral EGD - MAC Colonoscopy - MAC Cholecystectomy (11/01/17) Extraction of cataract Family History Mother Breast cancer Hypertension Anxiety Father CHF (congestive heart failure) Maternal Aunt Diabetes Social History Smoking/Tobacco Use Status: Former Tobacco Use Quit Date: 08/23/19 Tobacco: How many years used: 50 Quit status: quit date established Smoking risk assessment performed?: Yes Alcohol Intake: former Year quit: 2007 Drug use: Never Substance use type: does not use Adopted: No Caregiver/Support person: Yes Foster care: No Household members: other Details: Self Housing: apartment Number of Children: 0 number of grandchildren: 0 Communication Needs: None Education Level: vocational Do you need help understanding health information?: Often current occupation: Disabled Pets and animals: No Sexually active: No Do you think of yourself as: straight/heterosexual Current gender identity: male What is your relationship status?: How often do you talk on the phone with friends or family?: three or more times per week How often do you get together with friends or relatives?: decline to answer Do you belong to any clubs or organized social groups?: yes Panel score (0-1 are the most socially isolated patients): 2 What type of physical activity do you participate in: other Details: Stretching - ROM - arms and wheelchair-bound Duration: 15-30 minutes/day Frequency: 3-4 times per week Yakelin/Christianity: Buddhism Special yakelin needs: No Seatbelt use: always Drive intox or ride w/intox forklift driver: No (Does not apply) Do you feel safe at home: Yes Do you feel safe in your relationship?: Yes
[2023-07-02 17:47] LABS: Abs Immature Grans 0.06 10^3/uL (0.0-0.06); Absolute Basophil Count 0.03 10^3/uL (0.0-0.2); Absolute Eosinophil Count 0.22 10^3/uL (0.0-0.7); Absolute Lymphocyte Count 1.35 10^3/uL (1.2-3.4); Absolute Monocyte Count 0.85 10^3/uL (0.1-0.8); Absolute Neutrophil Count 6.96 10^3/uL (1.2-6.7); Basophils % 0.3; Eosinophils % 2.3; HCT 23.9 % (40.0-50.0); Immature Grans % 0.6; Lymphocytes % 14.3; MCH 32.6 pg (27.0-33.0); MCHC 29.3 % (32.0-36.0); MCV 111 fL (80-95); MPV 9.5 fL (8.0-11.0); Neutrophils % 73.5; Platelet Count 242 10^3/uL (130-400); RBC 2.15 10^6/uL (4.36-5.78); RDW 21.2 % (11.8-14.1); RDW-SD 86.3 fL; WBC 9.47 10^3/uL (4.4-10.8)
[2023-07-02 18:00] LABS: PTT Activated 34.8 sec (23.6-32.8); Prothrombin Time 10.5 sec (9.1-11.1)
[2023-07-02 18:02] LABS: ALT 24 U/L (16-63); AST 38 U/L (15-37); Albumin 2.5 g/dL (3.4-5.0); Alkaline Phosphatase 119 U/L (46-116); Anion Gap 7.9 mmol/L (3-11); BUN 34 mg/dL (7-18); Bilirubin, Total 0.8 mg/dL (0.2-1.0); CO2 28.1 mmol/L (21.0-32.0); CREATININE 1.6 mg/dL (0.70-1.30); Calcium 9.1 mg/dL (8.5-10.1); Chloride 99 mmol/L (98-107); Estimated GFR 47.23 (mL/min/1.73m2); Glucose 98 mg/dL (74-106); Potassium 4.9 mmol/L (3.5-5.1); Sodium 135 mmol/L (136-145); Total Protein 7.5 g/dL (6.4-8.2)
[2023-07-02 18:05] LABS: Anisocytosis 1+; Diff Comment RBC Morph Reviewed; Hypochromasia 1+; Macrocytosis 1+; Polychromasia Present
== END 2023-07-02 21:47 | disposition home or self-care (01) ==
PROVIDERS: Emergency Provider Emergency Medicine; PCP Family Medicine
DX: D64.9 Anemia, unspecified (principal); J44.9 Chronic obstructive pulmonary disease, unspecified; I48.91 Unspecified atrial fibrillation; Z79.01 Long term (current) use of anticoagulants; Z96.0 Presence of urogenital implants; Z87.891 Personal history of nicotine dependence
CPT/HCPCS: 36415; 36430; 80053; 86850; 86900; 86901; 86920; 99284; 85025; 85610; 85730; P9016

== ENCOUNTER 2023-07-22 11:50 | Inpatient (IN) | payer MEDICARE, MEDICAID, SELFPAY ==
[2023-07-22] VITALS (76 sets, daily range): BP systolic 61–129; BP diastolic 33–91; PULSE 51–119; RESP 11–26; TEMP 36.2–36.7; O2SAT 73–98
--- NOTE | 2023-07-22 12:20 | ED.GENADUL_ITS ---
Discharge Plan Discharge Details Chief Complaint: SurgicalRecheck Admit Date/Time: 07/22/23 14:35 Admit Provider: Michel Trivedi Attending Provider: Michel Trivedi Primary Care Provider: Renan Garcia ED Provider: Tatiana Siddiqi Discharge Data Discharge Date/Time-TO BE ENTERED AT DEPARTURE: 07/22/23 15:05 HPI General Date/Time Provider Initiated Documentation: 07/22/23 12:20 . Information obtained by: patient . HPI Narrative: Time seen was 12:33 PM in bed 11. The patient is a 68-year-old male who is a resident of [facility] and [facility] who was sent in for a surgical consultation for decubitus ulcer of the right buttock. Apparently the patient was seen by a surgeon there and felt that he needed surgical debridement and referred him to the emergency department. The patient is complaining of pain and drainage. He does not ambulate and also has a suprapubic catheter. He denies any dizziness or fever. The pain is constant and aggravated by lying on the side and associated with a foul smell and foul drainage. He denies any dizziness or confusion. He denies any aggravating or alleviating factors. He does have a history of chronic kidney disease but is not on dialysis. He also has a history of mitral regurg depression and Crohn's disease. He is on apixaban, but is not sure why. The patient has not a precise historian. He tells me he does have allergies to antibiotics but cannot tell me which ones. Related Data Home Medications Medication Instructions Recorded Confirmed acetaminophen 325 mg tablet 325 - 650 mg (1 - 2 x 325 mg) PO 07/02/19 07/22/23 (Tylenol) Q4H PRN PRN #0 tabs nebulizers #1 ea 02/05/21 07/22/23 disposable gloves (Nitrile Exam #100 ea 10/08/21 07/22/23 Gloves) underpads (Bed Underpads) #40 ea 10/08/21 07/22/23 polyethylene glycol 3350 17 gram 17 g PO BID PRN PRN constipation 05/25/22 07/22/23 oral powder packet #100 ea albuterol sulfate 90 mcg/actuation 2 puff inhalation Q6H PRN 10/01/22 07/22/23 aerosol inhaler shortness of breath or wheezing #8.5 grams tiotropium 2.5 mcg-olodaterol 2.5 2 puff inhalation DAILY #4 grams 10/01/22 07/22/23 mcg/actuation mist for inhalation (Stiolto Respimat) torsemide 20 mg tablet 40 mg (2 x 20 mg) PO TID #540 tabs 11/01/22 07/22/23 miconazole nitrate 2 % topical 1 applic topical DAILY #28 grams 01/28/23 07/22/23 cream (Antifungal (miconazole)) calcium polycarbophil 625 mg 1,250 mg (2 x 625 mg) PO DAILY #90 02/22/23 07/22/23 tablet (FiberCon) tabs cholecalciferol (vitamin D3) 10 20 mcg (2 x 10 mcg (400 unit)) PO 02/22/23 07/22/23 mcg (400 unit) tablet DAILY #180 tabs spironolactone 25 mg tablet 25 mg PO DAILY #90 tabs 03/03/23 07/22/23 Pull ups #60 ea 04/05/23 07/22/23 ferrous sulfate 325 mg (65 mg See Rx Instructions .Route 04/21/23 07/22/23 iron) tablet .COMPLEX #28 tabs wedge pillow #1 ea 05/03/23 07/22/23 pregabalin 75 mg capsule (Lyrica) 75 mg PO BID #180 caps 05/16/23 07/22/23 potassium chloride 20 mEq 20 meq PO DAILY 05/24/23 07/22/23 tablet,extended release(part/cryst) ammonium lactate 12 % lotion 1 applic topical BID #400 grams 05/27/23 07/22/23 clotrimazole 1 % topical cream 1 applic topical PRN PRN #45 grams 05/27/23 07/22/23 vitamins A and D-white 1 applic topical PRN PRN #56 grams 05/27/23 07/22/23 petrolatum-lanolin topical ointment zinc oxide 20 % topical ointment 1 applic topical PRN PRN #56 grams 05/27/23 07/22/23 fluocinonide 0.05 % topical cream 1 applic topical BID #60 grams 06/02/23 07/22/23 metolazone 2.5 mg tablet 2.5 mg PO DAILY PRN Fluid overload 06/02/23 07/22/23 #20 tabs apixaban 5 mg tablet 10 mg (2 x 5 mg) PO BID #100 tabs 06/15/23 07/22/23 ascorbic acid (vitamin C) 500 mg See Rx Instructions .Route 06/16/23 07/22/23 tablet (Vitamin C) .COMPLEX #84 tabs docusate sodium 100 mg capsule 100 mg PO BID #60 caps 06/23/23 07/22/23 (Colace) Previous Rx's Medication Instructions Recorded acetaminophen 325 mg tablet 325 - 650 mg (1 - 2 x 325 mg) PO 07/02/19 (Tylenol) Q4H PRN PRN #0 tabs nebulizers #1 ea 02/05/21 disposable gloves (Nitrile Exam #100 ea 10/08/21 Gloves) underpads (Bed Underpads) #40 ea 10/08/21 polyethylene glycol 3350 17 gram 17 g PO BID PRN PRN constipation 05/25/22 oral powder packet #100 ea albuterol sulfate 90 mcg/actuation 2 puff inhalation Q6H PRN 10/01/22 aerosol inhaler shortness of breath or wheezing #8.5 grams tiotropium 2.5 mcg-olodaterol 2.5 2 puff inhalation DAILY #4 grams 10/01/22 mcg/actuation mist for inhalation (Stiolto Respimat) torsemide 20 mg tablet 40 mg (2 x 20 mg) PO TID #540 tabs 11/01/22 miconazole nitrate 2 % topical 1 applic topical DAILY #28 grams 01/28/23 cream (Antifungal (miconazole)) calcium polycarbophil 625 mg 1,250 mg (2 x 625 mg) PO DAILY #90 02/22/23 tablet (FiberCon) tabs cholecalciferol (vitamin D3) 10 20 mcg (2 x 10 mcg (400 unit)) PO 02/22/23 mcg (400 unit) tablet DAILY #180 tabs spironolactone 25 mg tablet 25 mg PO DAILY #90 tabs 03/03/23 Pull ups #60 ea 04/05/23 ferrous sulfate 325 mg (65 mg See Rx Instructions .Route 04/21/23 iron) tablet .COMPLEX #28 tabs wedge pillow #1 ea 05/03/23 pregabalin 75 mg capsule (Lyrica) 75 mg PO BID #180 caps 05/16/23 ammonium lactate 12 % lotion 1 applic topical BID #400 grams 05/27/23 clotrimazole 1 % topical cream 1 applic topical PRN PRN #45 grams 05/27/23 vitamins A and D-white 1 applic topical PRN PRN #56 grams 05/27/23 petrolatum-lanolin topical ointment zinc oxide 20 % topical ointment 1 applic topical PRN PRN #56 grams 05/27/23 fluocinonide 0.05 % topical cream 1 applic topical BID #60 grams 06/02/23 metolazone 2.5 mg tablet 2.5 mg PO DAILY PRN Fluid overload 06/02/23 #20 tabs apixaban 5 mg tablet 10 mg (2 x 5 mg) PO BID #100 tabs 06/15/23 ascorbic acid (vitamin C) 500 mg See Rx Instructions .Route 06/16/23 tablet (Vitamin C) .COMPLEX #84 tabs docusate sodium 100 mg capsule 100 mg PO BID #60 caps 06/23/23 (Colace) Allergies Allergy/AdvReac Type Severity Reaction Status Date / Time levofloxacin [From Levaquin] AdvReac Intermediate purpura Verified 07/20/23 14:38 silicone AdvReac Intermediate Hives; Rash Verified 07/20/23 14:38 Sulfa (Sulfonamide AdvReac Intermediate Itching Verified 07/20/23 14:38 Antibiotics) Seasonal Allegies Allergy Intermediate Runny nose Uncoded 07/20/23 14:38 General Stated Complaint: SurgicalRecheck DARRELL: 3 Review of Systems Narrative: see hpi Exam Narrative Exam Narrative: The patient is a well-developed well-nourished male lying on the stretcher with a suprapubic catheter draining slightly cloudy fluid. He is mildly hypotensive but is not diaphoretic or confused. He tells me he is not dizzy and does not feel weak. His GCS is 15. He does appear chronically ill. His blood pressure was 89/43 heart rate 64 respiratory rate 16 temperature was 36.2 and room air O2 sat was normal at 96%. His GCS was 15 Const General: cooperative, healthy appearing, comfortable, no acute distress, well developed and well hydrated Nutritional Appearance: well nourished Orientation: alert, awake and oriented x3 HENMT Head: normal to inspection, normocephalic and atraumatic Ears: hearing grossly normal bilaterally and external ears normal General nose exam: external nose normal, nares normal and no nasal discharge Face and sinus: normal facial exam Mouth: lip normal Eyes General: appearance normal, both eyes and all related structures Eyelids: eyelids normal Sclera: sclerae normal Cornea: corneas normal Pupils: PERRL EOM: EOM intact bilaterally Neck Neck: normal visual inspection, full ROM, no lymphadenopathy, no meningeal signs, trachea midline and supple Lymphatic: no lymphadenopathy noted Chest Chest: normal inspection of the chest Resp Effort & Inspection: normal respiratory effort, able to speak in complete sentences, no audible wheezes, no nasal flaring, no respiratory distress, no retractions, no stridor, not tachypneic, no tracheal deviation, no use of accessory muscles, No prolonged expiratory phase and other (Normal inspiratory to expiratory ratio.) Auscultation: clear to auscultation bilaterally, no rales, no rhonchi, no wheezes and no rubs Tactile Fremitus: tactile fremitus absent Cardio Jugular venous pressure: no JVD Palpation: normal PMI Rate: regular rate Rhythm: regular rhythm Heart Sounds: S1 normal, S2 normal, no gallops, no murmurs and no rubs Other: Heart sounds are distant GI Palpation: soft, no hepatosplenomegaly, no guarding and nontender Percussion: normal to percussion Auscultation: normal bowel sounds Other: Suprapubic catheter in place. General: No CVA tenderness Back/Spine/Pelvis Other: The patient has right-sided decubitus ulcer just to the right of the sacrum on the right upper buttocks. It is 6 cm in diameter. It is foul-smelling and appears to be down to the sacrum and definitely through the subcutaneous tissue and muscle. There is no subcutaneous emphysema or cellulitis. Skin Other: As above. Large decubitus ulcer noted Neuro General: patient alert, patient awake, patient oriented x3 and CN's II-XI intact bilaterally Other: The patient has atrophy of his lower extremities with mild edema. Extrem Other: As above Psych Appearance: grossly normal Affect: normal affect Attitude: cooperative Thought Process: normal Thought Content: normal Insight: insight good Judgment: judgment good Other: The patient appears to have capacity make medical decisions. Course The patient was seen by the general surgeon Dr. Benitez. He asked that I consult the hospitalist since the patient has multiple medical problems. I did discuss with Dr. Trivedi who felt that the patient should be admitted by the general surgeon. I conveyed this to Dr. Cardona. Dr. Cardona arrange for the patient to be taken to the operating room for debridement but anesthesia reviewed his labs including an elevated potassium and they canceled the case. The patient was already admitted but he returned to the emergency department but orders were placed by Dr. Trivedi the hospitalist. I did review his EKG which did not show evidence of hyperkalemia. The patient remained hypotensive but clinically appeared intact and was not diaphoretic or confused. He did not complain of dizziness. The patient was given IV Zosyn and was admitted to the ICU. Vital Signs Vital signs: Vital Signs Temperature 36.2 C L 07/22/23 12:14 Pulse 64 07/22/23 12:14 Respiratory Rate 16 07/22/23 12:14 Blood Pressure 89/43 L 07/22/23 12:14 Pulse Oximetry 96 07/22/23 12:14 Temperature 36.2 C L 07/22/23 12:14 Temperature Source Temporal Artery Scan 07/22/23 12:14 Pulse 64 07/22/23 12:14 Respiratory Rate 16 07/22/23 12:14 Blood Pressure 89/43 L 07/22/23 12:14 Blood Pressure Position Supine 07/22/23 12:14 Pulse Oximetry 96 07/22/23 12:14 Oxygen Delivery Method Room Air 07/22/23 12:14 Oxygen Flow Rate 0 07/22/23 12:14 Medical Decision Making This is a 68-year-old male with multiple medical issues who presents for surgical debridement of the large decubitus ulcer. My plan is to establish an IV and give him a bolus of fluids and cover him with broad-spectrum antibiotics after reviewing his allergies. I will consult general surgery. We will check a CBC for leukocytosis left shift and anemia. I will check a comprehensive metabolic panel for evaluation of electrolytes and renal function as well as LFTs. I will check a PT/INR since it is likely he will go to the OR. The urine in his Smith he was cloudy and I will also check a urinalysis. I will not culture the wound now unless the surgeon requested because it is likely to be polymicrobial. He also has a history of MRSA. Differential Diagnosis Differential Diagnosis: Decubitus ulcer of the right hip requiring surgical debridement Medical Records Medical records reviewed: Yes I reviewed the patient's medical records. Lab Data Lab results reviewed: Yes I reviewed the patient's lab results. Quality:SDOH Health Related Social Needs: Health related social needs transpo insecurity Critical Care Time Critical Care Time Critical Care Time: Yes Total Critical Care Time: 36 Attestation: Time at the bedside, review of labs and consultation with hospitalist and general surgery [facility] All Active Problems (Updated 07/22/23 @ 17:58 by Michel Trivedi MD) Hyperkalemia (Acute) Acute on chronic kidney failure (Acute) Septic shock (Acute) Pressure ulcer (Acute) Ulcer of sacral region, unstageable (Acute) Anemia (Chronic) HCAP (healthcare-associated pneumonia) (Acute) Atopic dermatitis (Acute) Pulmonary embolism (Chronic) Cellulitis (Acute) Cervical spondylosis without myelopathy (Acute) Perineal ulcer (Acute) Cervical spine arthritis (Acute) Cervical radicular pain (Acute) Viral conjunctivitis of both eyes (Acute) Hypoadrenergic postural hypotension (Acute) Dyspnea (Acute) Conductive hearing loss, bilateral (Acute) Chronic serous otitis media, bilateral (Acute) Recurrent serous otitis media of left ear (Acute) Intertrigo (Acute) Sensorineural hearing loss, bilateral (Acute) Conductive hearing loss in right ear (Acute) Chronic serous otitis media, right ear (Acute) Nasal vestibulitis (Acute) Mixed hearing loss, bilateral (Acute) Hearing deficit (Acute) Acute serous otitis media of right ear (Acute) Onychomycosis (Acute) Chronic Nephrotic syndrome (Acute) Pancreatic lesion (Acute) Hypoattenuation seen on CT 05/09 Fluid retention (Acute) Thrombosis of right saphenous vein (Acute) Left femoral vein DVT (Acute) Anxiety and depression (Chronic) Hypertrophic toenail (Acute) Cor pulmonale (chronic) (Chronic) Incontinence of bowel (Acute) Acute kidney injury (Acute ~09/28/19) due to methotrexate therapy Weakness of both lower extremities (Acute) Hyperuricemia (Acute) Paroxysmal A-fib (Acute) Dehydration (Acute) Limited code status (Acute) Pleural effusion (Acute) Abdominal lymphadenopathy (Acute) DVT (deep venous thrombosis) (Chronic) Mediastinal adenopathy (Acute) Lung mass (Acute) COPD exacerbation (Acute) Respiratory distress (Acute) Overgrown toenails (Acute) DJD (degenerative joint disease) (Chronic) Depressive disorder (Chronic) Crohn's disease (Chronic) Self Reported Venous stasis ulcer of ankle limited to breakdown of skin (Acute) Mitral regurgitation (Chronic) Lymphedema of both lower extremities (Chronic) Ischemic ulcer of right ankle, limited to breakdown of skin (Acute) Venous insufficiency of both lower extremities (Chronic) as above Left varicocele (Acute 05/09/17) Microscopic hematuria (Acute 02/03/16) Osteoarthritis of hip (Acute 12/14/12) Right hydrocele (Acute 02/04/17) Osteoarthritis of hip (Acute 01/14/14) Total hip arthroplasty by Dr. Jose Nieves 01/14/14; Ceramic head; press fit. Mitral valve prolapse (Chronic) Microscopic hematuria (Acute) Medical History Emphysema lung Right femoral vein DVT Hypotension Venous stasis ulcer of right lower leg with edema of right lower leg Cellulitis of right leg Housing problems Tobacco use disorder Alcohol dependence in remission Anxiety 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 Ulcer of right lower extremity Gastroesophageal reflux disease Osteoarthritis Hypercholesterolemia BPH (benign prostatic hyperplasia) Surgical History Total replacement of hip bilateral Tonsillectomy and adenoidectomy Repair of umbilical hernia Repair of inguinal hernia Bilateral EGD - MAC Colonoscopy - MAC Cholecystectomy (11/01/17) Extraction of cataract Family History Mother Breast cancer Hypertension Anxiety Father CHF (congestive heart failure) Maternal Aunt Diabetes Social History Smoking/Tobacco Use Status: Former Tobacco Use Quit Date: 08/23/19 Tobacco: How many years used: 50 Quit status: quit date established Smoking risk assessment performed?: Yes Alcohol Intake: former Year quit: 2007 Drug use: Never Substance use type: does not use Adopted: No Caregiver/Support person: Yes Foster care: No Household members: other Details: Self Housing: apartment Number of Children: 0 number of grandchildren: 0 Communication Needs: None Education Level: vocational Do you need help understanding health information?: Often current occupation: Disabled Pets and animals: No Sexually active: No Do you think of yourself as: straight/heterosexual Current gender identity: male What is your relationship status?: How often do you talk on the phone with friends or family?: three or more times per week How often do you get together with friends or relatives?: decline to answer Do you belong to any clubs or organized social groups?: yes Panel score (0-1 are the most socially isolated patients): 2 What type of physical activity do you participate in: other Details: Stretching - ROM - arms and wheelchair-bound Duration: 15-30 minutes/day Frequency: 3-4 times per week Yakelin/Amish: Mosque Special yakelin needs: No Seatbelt use: always Drive intox or ride w/intox telephone directory distributor driver: No (Does not apply) Do you feel safe in your relationship?: Yes Additional Social history: unable to assess privately
[2023-07-22 13:03] LABS: BE (Venous) 0 mmol/L (-2-3); HCO3 (Venous) 25 mmol/L (23-28); O2 Sat (Venous) 70 %; TCO2 (Venous) 23 mmol/L (24-29); pCO2 (Venous) 41 mmHg (41-51); pH (Venous) 7.39 (7.31-7.41); pO2 (Venous) 39 mmHg
[2023-07-22 13:05] LABS: Absolute Neutrophil Count 11.99 10^3/uL (1.2-6.7); Basophils % 0.3; Eosinophils % 2.8; HCT 36.1 % (40.0-50.0); HGB 11.2 g/dL (13.5-17.5); Immature Grans % 0.7; Lymphocytes % 6.8; MCH 29.6 pg (27.0-33.0); MCV 96 fL (80-95); MPV 10.1 fL (8.0-11.0); Monocytes % 5.7; Neutrophils % 83.7; Platelet Count 224 10^3/uL (130-400); RBC 3.78 10^6/uL (4.36-5.78); RDW-SD 74.4 fL; WBC 14.33 10^3/uL (4.4-10.8)
[2023-07-22 13:06] LABS: Lactate 1.3 mmol/L (0.6-1.4)
[2023-07-22] MEDS: Lactated Ringers 1,000 ML 1000 ML IV (13:07)
[2023-07-22 13:08] LABS: Absolute Basophil Count 0.04 10^3/uL (0.0-0.2); Absolute Lymphocyte Count 0.97 10^3/uL (1.2-3.4); Absolute Monocyte Count 0.82 10^3/uL (0.1-0.8)
[2023-07-22 13:18] LABS: Bilirubin Negative (Negative); Blood Small (Negative); Clarity Sl Cloudy (Clear); Glucose Negative (Negative); Ketones Negative (Negative); Leukocyte Esterase Large (Negative); Nitrite Negative (Negative); Urobilinogen 0.2 mg/dL (Up to 0.2)
[2023-07-22] MEDS: PIPERACILLIN/TAZO 3.375 GM in Normal Saline 100 ML IVPB (13:20)
--- NOTE | 2023-07-22 13:21 | W.SURGCON ---
Date of service: 07/22/23 Time of Service: 13:21 Assessment and Plan Assessment and plan (1) Pressure ulcer: Status: Acute Assessment and plan: Plan: We will proceed with emergency surgery today, for excisional debridement of this unstageable ulcer, and excise any nonviable tissue and debride the wound bed of fibropurulent discharge. Informed consent discussion has been completed with the patient as noted above. The informed consent document will be signed before heading to surgery. Continue n.p.o. Procedure OR for tentative procedure today Treatment with IV antibiotics preop We will obtain wound cultures in the OR to facilitate treatment of the wound, and objective information for management of the postoperative wound care Patient remains hemodynamically stable at this time Plan for discharge back to nursing facility for ongoing wound care after excisional debridement is performed. I have personally reviewed his diagnostic images, there his a recent MRI of the lumbar spine, and soft tissue demonstrating evidence of a prior healed sacral decubitus ulcer, with scarring and radiographic changes. In the lower aspect of the imaging, there is cross-sectional imaging to suggest the right superior gluteal pressure ulcer was beginning to develop at the time of his most recent MRI imaging. Will hold anticoagulant therapy for 72 hours following excisional wound debridement today Wound care: Wet-to-dry dressings Dakins solution moistened gauze packing 2 times daily Follow-up with surgery for wound care evaluation in 3-4 days History of Present Illness History of Present Illness Chief Complaint: stage IV decubitus pressure ulcer Narrative: This is a 68-year-old chronically ill [facility], who presents for evaluation of unstageable pressure ulcer location: Right superior gluteal region, with purulent discharge, fibropurulent drainage. On gross examination, the wound appears to be colonized, drainage of purulent discharge is noted, there is a malodorous foul smelling character, the opening in the wound is approximately 4 cm x 4 cm. Timing/duration: It is unclear at this time the duration, I would suggest chronic rather than acute. There is full-thickness breakdown of the skin, through the dermal layer, and into the fatty layer, possibly into the muscle. Severity: The ulcer is currently infected, and is in fact becoming worse rather than improving. The site of the ulcer was covered by an Allevyn's dressing, and some wound care has been performed however it has been inadequate to promote healing. Aggravating factors: Included bedbound status, inability to shift his weight, inability to ambulate and perform activities of daily living. Alleviating factors: He does benefit from administration of pain medication, however wound care to date has been insufficient to promote healing. This patient is bedbound, he is limited in mobility, unable to perform his own activities of daily living. He resides in a long-term nursing facility. He has multiple medical conditions as listed below in the problem list. General surgery has been consulted for evaluation, and recommendations including possible surgical management and debridement of the infected pressure ulcer. Upon evaluation, I discussed with the patient my recommendation to proceed with surgery today, we will proceed with excisional debridement, removal of the fibropurulent discharge, and debridement of nonviable tissue. We discussed risks of nonsurgical management include prolonged course of illness, increased risk for spread of bacterial infection, which could result in rapid deterioration, and worsening associate with soft tissue infection. We discussed that the risks of nonsurgical management outweigh the risks of surgical management. We discussed risks of surgery include bleeding, need for blood transfusion, abscess, persistent infection, requiring additional debridement operations. We discussed the risk for prolonged healing required with excisional debridement of a pressure ulcer. We discussed circumstances which promote formation of a pressure ulcer specifically he is bedbound, he is unable to perform his activities of daily living, and so therefore he is at risk for recurrence of pressure ulcer if unable to offload the skin and gluteal region on a routine schedule daily. We also discussed malnutrition, age, prolonged healing which may occur with advanced age, does increase the risk of nonhealing or requirement for long-term or protracted healing. We discussed risk of pain associate with infection, recommendation is to debride and excise the nonviable tissue to reduce the risk of ongoing infection, and to promote conditions necessary for healing. There are other risks associated with surgical management, including DVT, PE, CVA, myocardial infarction, and there is a low real risk of early mortality associated complications following surgery. We believe that the debridement of sacral decubitus ulcer with its associated benefits outweigh the risks of nonsurgical management. The patient last ate this morning, finishing his meal approximately 8 AM. 6 hours is required from his last meal, before proceeding with anesthesia, and surgical management. At 2 PM, 6 hours will have elapsed since completion of his last meal. During my examination, I did note that the suprapubic catheter is a chronically indwelling catheter. The Smith catheter tubing has a cloudy appearing urine in the tubing, as well as in the collection bag. We will remove and exchange the suprapubic catheter today, and send urine culture and urinalysis, as I have a very high suspicion of a current urinary tract infection. Consults Consult date: 07/22/23 Review of Systems Narrative: Patient denies any recent chest pain, no shortness of breath, he does not experience any nausea, no vomiting. He does endorse weakness, and he endorses increasing pain in the right gluteal region, starting a couple of days ago. He has noticed a foul-smelling odor more than 1 week, but he is unable to determine when he first noticed the odor. He denies any subjective fevers, or chills. PFSH All Active Problems (Updated 07/22/23 @ 13:46 by Andriy Benitez MD) Pressure ulcer (Acute) Ulcer of sacral region, unstageable (Acute) Anemia (Chronic) HCAP (healthcare-associated pneumonia) (Acute) Atopic dermatitis (Acute) Pulmonary embolism (Chronic) Cellulitis (Acute) Cervical spondylosis without myelopathy (Acute) Perineal ulcer (Acute) Cervical spine arthritis (Acute) Cervical radicular pain (Acute) Viral conjunctivitis of both eyes (Acute) Hypoadrenergic postural hypotension (Acute) Dyspnea (Acute) Conductive hearing loss, bilateral (Acute) Chronic serous otitis media, bilateral (Acute) Recurrent serous otitis media of left ear (Acute) Intertrigo (Acute) Sensorineural hearing loss, bilateral (Acute) Conductive hearing loss in right ear (Acute) Chronic serous otitis media, right ear (Acute) Nasal vestibulitis (Acute) Mixed hearing loss, bilateral (Acute) Hearing deficit (Acute) Acute serous otitis media of right ear (Acute) Onychomycosis (Acute) Chronic Nephrotic syndrome (Acute) Pancreatic lesion (Acute) Hypoattenuation seen on CT 05/09 Fluid retention (Acute) Thrombosis of right saphenous vein (Acute) Left femoral vein DVT (Acute) Anxiety and depression (Chronic) Hypertrophic toenail (Acute) Cor pulmonale (chronic) (Chronic) Incontinence of bowel (Acute) Acute kidney injury (Acute ~09/28/19) due to methotrexate therapy Weakness of both lower extremities (Acute) Hyperuricemia (Acute) Paroxysmal A-fib (Acute) Dehydration (Acute) Limited code status (Acute) Pleural effusion (Acute) Abdominal lymphadenopathy (Acute) DVT (deep venous thrombosis) (Chronic) Mediastinal adenopathy (Acute) Lung mass (Acute) COPD exacerbation (Acute) Respiratory distress (Acute) Overgrown toenails (Acute) DJD (degenerative joint disease) (Chronic) Depressive disorder (Chronic) Crohn's disease (Chronic) Self Reported Venous stasis ulcer of ankle limited to breakdown of skin (Acute) Mitral regurgitation (Chronic) Lymphedema of both lower extremities (Chronic) Ischemic ulcer of right ankle, limited to breakdown of skin (Acute) Venous insufficiency of both lower extremities (Chronic) as above Left varicocele (Acute 05/09/17) Microscopic hematuria (Acute 02/03/16) Osteoarthritis of hip (Acute 12/14/12) Right hydrocele (Acute 02/04/17) Osteoarthritis of hip (Acute 01/14/14) Total hip arthroplasty by Dr. Jose Nieves 01/14/14; Ceramic head; press fit. Mitral valve prolapse (Chronic) Microscopic hematuria (Acute) Medical History Emphysema lung Right femoral vein DVT Hypotension Venous stasis ulcer of right lower leg with edema of right lower leg Cellulitis of right leg Housing problems Tobacco use disorder Alcohol dependence in remission Anxiety 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 Ulcer of right lower extremity Gastroesophageal reflux disease Osteoarthritis Hypercholesterolemia BPH (benign prostatic hyperplasia) Surgical History Total replacement of hip bilateral Tonsillectomy and adenoidectomy Repair of umbilical hernia Repair of inguinal hernia Bilateral EGD - MAC Colonoscopy - MAC Cholecystectomy (11/01/17) Extraction of cataract Family History Mother Breast cancer Hypertension Anxiety Father CHF (congestive heart failure) Maternal Aunt Diabetes Social History Smoking/Tobacco Use Status: Former Tobacco Use Quit Date: 08/23/19 Tobacco: How many years used: 50 Quit status: quit date established Smoking risk assessment performed?: Yes Alcohol Intake: former Year quit: 2007 Drug use: Never Substance use type: does not use Adopted: No Caregiver/Support person: Yes Foster care: No Household members: other Details: Self Housing: other Number of Children: 0 number of grandchildren: 0 Communication Needs: None Education Level: vocational Do you need help understanding health information?: Often current occupation: Disabled Pets and animals: No Sexually active: No Do you think of yourself as: straight/heterosexual Current gender identity: male What is your relationship status?: How often do you talk on the phone with friends or family?: three or more times per week How often do you get together with friends or relatives?: decline to answer Do you belong to any clubs or organized social groups?: yes Panel score (0-1 are the most socially isolated patients): 2 What type of physical activity do you participate in: other Details: Stretching - ROM - arms and wheelchair-bound Duration: 15-30 minutes/day Frequency: 3-4 times per week Yakelin/Mormon: Uatsdin Special yakelin needs: No Seatbelt use: always Drive intox or ride w/intox 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 (Does not apply) Do you feel safe in your relationship?: Yes Additional Social history: unable to assess privately Exam Narrative Exam Narrative: gen: Chronically ill-appearing male Neuro: No focal neurologic deficits Psych: He is a good historian, responds appropriately, makes good eye contact HEENT: Atraumatic, normocephalic Neck: Trachea midline Heart: RRR, no m/r/g Lungs: ctab Chest: Bilateral excursion with respiration, does not localize chest pain Abdomen: Suprapubic catheter in place Peritoneal: The right gluteal superior aspect is affected by a stage IV decubitus ulcer, and purulent drainage, the left gluteal region demonstrates previous surgical management, there is a well-healed scar from distant sacral decubitus ulcer MSK: MAEx4, no traumatic injuries Integument: No lacerations, no abrasions, normal appearing skin Results Last Vital Signs Temp 97.2 F L 07/22/23 12:14 Pulse 64 07/22/23 12:14 Resp 16 07/22/23 12:14 BP 89/43 L 07/22/23 12:14 Pulse Ox 96 07/22/23 12:14 Labs 07/22/23 12:55 07/22/23 12:55 Labs: Laboratory Results - last 24 hr 07/22/23 07/22/23 12:55 13:00 WBC 14.33 H RBC 3.78 L Hgb 11.2 L Hct 36.1 L MCV 96 H MCH 29.6 MCHC 31.0 L RDW 21.0 H Plt Count 224 MPV 10.1 Immature Gran % 0.7 Neutrophils % 83.7 Lymphocytes % 6.8 Monocytes % 5.7 Eosinophils % 2.8 Basophils % 0.3 Nucleated RBC % 0.0 Absolute Neutrophils 11.99 H Absolute Lymphocytes 0.97 L Absolute Monocytes 0.82 H Absolute Eosinophils 0.40 Absolute Basophils 0.04 PT Cancelled INR Cancelled APTT Cancelled VBG pH 7.39 VBG pCO2 41 VBG pO2 39 VBG HCO3 25 VBG Total CO2 23 L VBG O2 Saturation 70 VBG Base Excess 0 VBG Lactate 1.3 Urine Color Yellow Urine Clarity Sl Cloudy Urine pH 6.0 Ur Specific [place] 1.010 Urine Protein Trace Urine Ketones Negative Urine Blood Small H Urine Nitrite Negative Urine Bilirubin Negative Urine Urobilinogen 0.2 Ur Leukocyte Esterase Large H Urine Glucose Negative Imaging Additional studies: MRI lumbar-I personally reviewed his diagnostic images, I reviewed the radiology report, and provide my independent interpretation that there is radiographic evidence of a previously well-healed sacral decubitus ulcer over the sacrum, and there is radiographic findings consistent with an early developing right superior gluteal abscess at the time of this study was performed.
[2023-07-22 13:27] LABS: Bacteria Many HPF (Negative); C & S Indicated? Yes; Casts Negative LPF (Negative); Crystals Negative HPF (Negative); Epithelial Cells Rare HPF (Negative); Mucus Negative (Negative); RBC 0-2 HPF (0-2); WBC >50 HPF (0-5)
[2023-07-22 13:43] LABS: INR 1.3 (0.9-1.1); Prothrombin Time 12.5 sec (9.1-11.1)
[2023-07-22 13:46] LABS: ALT 36 U/L (16-63); AST 39 U/L (15-37); Albumin 2.4 g/dL (3.4-5.0); Alkaline Phosphatase 148 U/L (46-116); Anion Gap 12.7 mmol/L (3-11); Bilirubin, Total 0.5 mg/dL (0.2-1.0); CO2 23.3 mmol/L (21.0-32.0); CREATININE 3.2 mg/dL (0.70-1.30); Calcium 10.1 mg/dL (8.5-10.1); Chloride 97 mmol/L (98-107); Estimated GFR 20.56 (mL/min/1.73m2); Glucose 77 mg/dL (74-106); Sodium 133 mmol/L (136-145); Total Protein 8.4 g/dL (6.4-8.2)
[2023-07-22] MEDS: ACETAMINOPHEN 1,000 MG/100 ML BTL 400 MG IVPB (13:49)
[2023-07-22 13:53] LABS: BUN 122 mg/dL (7-18); Potassium 6.5 mmol/L (3.5-5.1)
[2023-07-22 14:02] LABS: Procalcitonin 0.8 ng/mL
[2023-07-22] MEDS: Lactated Ringers 500 ML IV ×2 (14:30→15:04)
--- NOTE | 2023-07-22 14:30 | RT.EKG_ITS ---
APPROVED REPORT Exam: Resting ECG Reason for Exam: high potassium Patient Location: E HR:63 bpm ECG Measurements Heart Rate 63 AXIS NC 179 P 47 QRSd 119 QRS -9 QT 429 T 32 QTc 441 Conclusion Sinus rhythm...normal P axis, V-rate 60- 99 Incomplete right bundle branch block...QRSd >112, terminal axis(90,270) Low voltage, extremity and precordial leads...extremity<0.5mV, precordial<1.0mV low voltage, no STEM LAD, minimal changes from previous
--- NOTE | 2023-07-22 14:37 | W.PM.HP.N ---
Date of service: 07/22/23 Time of Service: 17:48 Assessment and Plan Assessment and plan (1) Septic shock: Status: Acute Assessment and plan: - Patient meets criteria for septic shock with a white count of 14, and a respiratory rate greater than 20 in the setting of chronic stage IV decubitus ulcer, and with associated hypotension with mean arterial pressure persistently under 65 -He was started on cefepime and vancomycin which will be continued -Currently requiring Levophed, titrate with goal mean arterial pressure greater than 65 -Once patient is medically stabilized he will likely go to the OR for surgical debridement (2) Sacral decubitus ulcer: Status: Resolved Assessment and plan: - As noted above (3) Acute on chronic kidney failure: Status: Acute Assessment and plan: - Baseline creatinine 1.6, up to 3.2 -Patient received total of 2 L LR in the emergency department -Will follow-up a.m. CMP (4) Hyperkalemia: Status: Acute Assessment and plan: - Potassium in emergency department 6.5 -No EKG was performed nor were any temporizing agents given to the patient while in the emergency department -EKG ordered by admitting hospitalist did not show any for dynamic T waves -Patient was given IV calcium -Repeat BMP showed improvement of potassium down to 5.9 -Will continue LR at 125 mL an hour -Follow-up a.m. BMP (5) Diastolic dysfunction: Assessment and plan: - Hold off on home antihypertensives while patient is hypotensive -Will restart as tolerated History of Present Illness History of Present Illness Chief Complaint: Sent from surgery office for evaluation of decubitus ulcer Narrative: 68-year-old male with past medical history of emphysema, stage IV B-cell lymphoma, chronic back pain secondary to radiation, right-sided DVT, left femoral DVT on anticoagulation, CKD stage III, suprapubic catheter, COPD who is wheelchair-bound who presents to the emergency department and after being instructed to do so by general surgery office for debridement of sacral decubitus ulcer. Patient been seeing general surgery for his ulcer though it appears to be getting worse. According to general surgery office, they recommended that he present to the emergency department so that he could have surgical debridement. Patient denies any headache, lightheadedness, dizziness, chest pain, shortness of breath. In the emergency department the patient was noted as having initial blood pressures that ranged from 72/33 to 93/48, though it does appear that the patient has low normal blood pressure at baseline. Also had a heart rate in the 60s, was afebrile, was saturating well on room air. CBC showed a white blood cell count of 14.3, CMP showed potassium 6.5, BUN of 122 and a creatinine of 3.2 both of which are increased from baseline (baseline BUN 34, baseline creatinine 1.6). However, results of the CMP were not available when the emergency room physician initially consulted general surgery who was about to take the patient into the OR when previously mentioned hyperkalemia and NAZARIO on CKD were discovered, this prompted emergency room physician to page hospitalist for admission for patient with hyperkalemia, and NAZARIO with need medical management prior to having sacral ulcer debrided. Review of Systems All systems reviewed & are unremarkable except as noted in HPI and below PFSH All Active Problems (Updated 07/22/23 @ 17:58 by Michel Trivedi MD) Hyperkalemia (Acute) Acute on chronic kidney failure (Acute) Septic shock (Acute) Pressure ulcer (Acute) Ulcer of sacral region, unstageable (Acute) Anemia (Chronic) HCAP (healthcare-associated pneumonia) (Acute) Atopic dermatitis (Acute) Pulmonary embolism (Chronic) Cellulitis (Acute) Cervical spondylosis without myelopathy (Acute) Perineal ulcer (Acute) Cervical spine arthritis (Acute) Cervical radicular pain (Acute) Viral conjunctivitis of both eyes (Acute) Hypoadrenergic postural hypotension (Acute) Dyspnea (Acute) Conductive hearing loss, bilateral (Acute) Chronic serous otitis media, bilateral (Acute) Recurrent serous otitis media of left ear (Acute) Intertrigo (Acute) Sensorineural hearing loss, bilateral (Acute) Conductive hearing loss in right ear (Acute) Chronic serous otitis media, right ear (Acute) Nasal vestibulitis (Acute) Mixed hearing loss, bilateral (Acute) Hearing deficit (Acute) Acute serous otitis media of right ear (Acute) Onychomycosis (Acute) Chronic Nephrotic syndrome (Acute) Pancreatic lesion (Acute) Hypoattenuation seen on CT 05/09 Fluid retention (Acute) Thrombosis of right saphenous vein (Acute) Left femoral vein DVT (Acute) Anxiety and depression (Chronic) Hypertrophic toenail (Acute) Cor pulmonale (chronic) (Chronic) Incontinence of bowel (Acute) Acute kidney injury (Acute ~09/28/19) due to methotrexate therapy Weakness of both lower extremities (Acute) Hyperuricemia (Acute) Paroxysmal A-fib (Acute) Dehydration (Acute) Limited code status (Acute) Pleural effusion (Acute) Abdominal lymphadenopathy (Acute) DVT (deep venous thrombosis) (Chronic) Mediastinal adenopathy (Acute) Lung mass (Acute) COPD exacerbation (Acute) Respiratory distress (Acute) Overgrown toenails (Acute) DJD (degenerative joint disease) (Chronic) Depressive disorder (Chronic) Crohn's disease (Chronic) Self Reported Venous stasis ulcer of ankle limited to breakdown of skin (Acute) Mitral regurgitation (Chronic) Lymphedema of both lower extremities (Chronic) Ischemic ulcer of right ankle, limited to breakdown of skin (Acute) Venous insufficiency of both lower extremities (Chronic) as above Left varicocele (Acute 05/09/17) Microscopic hematuria (Acute 02/03/16) Osteoarthritis of hip (Acute 12/14/12) Right hydrocele (Acute 02/04/17) Osteoarthritis of hip (Acute 01/14/14) Total hip arthroplasty by Dr. Jose Nieves 01/14/14; Ceramic head; press fit. Mitral valve prolapse (Chronic) Microscopic hematuria (Acute) Medical History Emphysema lung Right femoral vein DVT Hypotension Venous stasis ulcer of right lower leg with edema of right lower leg Cellulitis of right leg Housing problems Tobacco use disorder Alcohol dependence in remission Anxiety 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 Ulcer of right lower extremity Gastroesophageal reflux disease Osteoarthritis Hypercholesterolemia BPH (benign prostatic hyperplasia) Surgical History Total replacement of hip bilateral Tonsillectomy and adenoidectomy Repair of umbilical hernia Repair of inguinal hernia Bilateral EGD - MAC Colonoscopy - MAC Cholecystectomy (11/01/17) Extraction of cataract Family History Mother Breast cancer Hypertension Anxiety Father CHF (congestive heart failure) Maternal Aunt Diabetes Social History Smoking/Tobacco Use Status: Former Tobacco Use Quit Date: 08/23/19 Tobacco: How many years used: 50 Quit status: quit date established Smoking risk assessment performed?: Yes Alcohol Intake: former Year quit: 2007 Drug use: Never Substance use type: does not use Adopted: No Caregiver/Support person: Yes Foster care: No Household members: other Details: Self Housing: apartment Number of Children: 0 number of grandchildren: 0 Communication Needs: None Education Level: vocational Do you need help understanding health information?: Often current occupation: Disabled Pets and animals: No Sexually active: No Do you think of yourself as: straight/heterosexual Current gender identity: male What is your relationship status?: How often do you talk on the phone with friends or family?: three or more times per week How often do you get together with friends or relatives?: decline to answer Do you belong to any clubs or organized social groups?: yes Panel score (0-1 are the most socially isolated patients): 2 What type of physical activity do you participate in: other Details: Stretching - ROM - arms and wheelchair-bound Duration: 15-30 minutes/day Frequency: 3-4 times per week Yakelin/Muslim: Zoroastrianism Special yakelin needs: No Seatbelt use: always Drive intox or ride w/intox truck driver flatbed: No (Does not apply) Do you feel safe in your relationship?: Yes Additional Social history: unable to assess privately Meds Allergies and Home Medications Allergies Allergy/AdvReac Type Severity Reaction Status Date / Time levofloxacin [From Levaquin] AdvReac Intermediate purpura Verified 07/20/23 14:38 silicone AdvReac Intermediate Hives; Rash Verified 07/20/23 14:38 Sulfa (Sulfonamide AdvReac Intermediate Itching Verified 07/20/23 14:38 Antibiotics) Seasonal Allegies Allergy Intermediate Runny nose Uncoded 07/20/23 14:38 Home Medications Medication Instructions Recorded Confirmed Type acetaminophen 325 mg tablet 325 - 650 mg (1 - 2 x 325 mg) PO 07/02/19 07/22/23 Rx (Tylenol) Q4H PRN PRN #0 tabs nebulizers #1 ea 02/05/21 07/22/23 Rx disposable gloves (Nitrile Exam #100 ea 10/08/21 07/22/23 Rx Gloves) underpads (Bed Underpads) #40 ea 10/08/21 07/22/23 Rx polyethylene glycol 3350 17 gram 17 g PO BID PRN PRN constipation 05/25/22 07/22/23 Rx oral powder packet #100 ea albuterol sulfate 90 mcg/actuation 2 puff inhalation Q6H PRN 10/01/22 07/22/23 Rx aerosol inhaler shortness of breath or wheezing #8.5 grams tiotropium 2.5 mcg-olodaterol 2.5 2 puff inhalation DAILY #4 grams 10/01/22 07/22/23 Rx mcg/actuation mist for inhalation (Stiolto Respimat) torsemide 20 mg tablet 40 mg (2 x 20 mg) PO TID #540 tabs 11/01/22 07/22/23 Rx miconazole nitrate 2 % topical 1 applic topical DAILY #28 grams 01/28/23 07/22/23 Rx cream (Antifungal (miconazole)) calcium polycarbophil 625 mg 1,250 mg (2 x 625 mg) PO DAILY #90 02/22/23 07/22/23 Rx tablet (FiberCon) tabs cholecalciferol (vitamin D3) 10 20 mcg (2 x 10 mcg (400 unit)) PO 02/22/23 07/22/23 Rx mcg (400 unit) tablet DAILY #180 tabs spironolactone 25 mg tablet 25 mg PO DAILY #90 tabs 03/03/23 07/22/23 Rx Pull ups #60 ea 04/05/23 07/22/23 Rx ferrous sulfate 325 mg (65 mg See Rx Instructions .Route 04/21/23 07/22/23 Rx iron) tablet .COMPLEX #28 tabs wedge pillow #1 ea 05/03/23 07/22/23 Rx pregabalin 75 mg capsule (Lyrica) 75 mg PO BID #180 caps 05/16/23 07/22/23 Rx potassium chloride 20 mEq 20 meq PO DAILY 05/24/23 07/22/23 History tablet,extended release(part/cryst) ammonium lactate 12 % lotion 1 applic topical BID #400 grams 05/27/23 07/22/23 Rx clotrimazole 1 % topical cream 1 applic topical PRN PRN #45 grams 05/27/23 07/22/23 Rx vitamins A and D-white 1 applic topical PRN PRN #56 grams 05/27/23 07/22/23 Rx petrolatum-lanolin topical ointment zinc oxide 20 % topical ointment 1 applic topical PRN PRN #56 grams 05/27/23 07/22/23 Rx fluocinonide 0.05 % topical cream 1 applic topical BID #60 grams 06/02/23 07/22/23 Rx metolazone 2.5 mg tablet 2.5 mg PO DAILY PRN Fluid overload 06/02/23 07/22/23 Rx #20 tabs apixaban 5 mg tablet 10 mg (2 x 5 mg) PO BID #100 tabs 06/15/23 07/22/23 Rx ascorbic acid (vitamin C) 500 mg See Rx Instructions .Route 06/16/23 07/22/23 Rx tablet (Vitamin C) .COMPLEX #84 tabs docusate sodium 100 mg capsule 100 mg PO BID #60 caps 06/23/23 07/22/23 Rx (Colace) Exam Narrative Exam Narrative: Chronically ill-appearing older gentleman laying in bed in no acute distress, ANO x 4, heart regular rhythm, lungs clear to auscultation bilaterally, abdomen soft, nontender, nondistended, please see general surgery and nurses note for description of patient's sacral wound Results Labs 07/22/23 12:55 07/22/23 15:45 Labs: Laboratory Results - last 24 hr 07/22/23 07/22/23 07/22/23 12:55 13:00 13:22 WBC 14.33 H RBC 3.78 L Hgb 11.2 L Hct 36.1 L MCV 96 H MCH 29.6 MCHC 31.0 L RDW 21.0 H Plt Count 224 MPV 10.1 Immature Gran % 0.7 Neutrophils % 83.7 Lymphocytes % 6.8 Monocytes % 5.7 Eosinophils % 2.8 Basophils % 0.3 Nucleated RBC % 0.0 Absolute Neutrophils 11.99 H Absolute Lymphocytes 0.97 L Absolute Monocytes 0.82 H Absolute Eosinophils 0.40 Absolute Basophils 0.04 PT Cancelled 12.5 H INR Cancelled 1.3 H APTT Cancelled 48.0 H VBG pH 7.39 VBG pCO2 41 VBG pO2 39 VBG HCO3 25 VBG Total CO2 23 L VBG O2 Saturation 70 VBG Base Excess 0 VBG Lactate 1.3 Sodium 133 L Potassium 6.5 H* Chloride 97 L Carbon Dioxide 23.3 Anion Gap 12.7 H BUN 122 H* Creatinine 3.2 H Est GFR (CKD-EPI 2020) 20.56 Glucose 77 Calcium 10.1 Total Bilirubin 0.5 AST 39 H ALT 36 Alkaline Phosphatase 148 H Total Protein 8.4 H Albumin 2.4 L Procalcitonin 0.8 Urine Color Yellow Urine Clarity Sl Cloudy Urine pH 6.0 Ur Specific Switzer 1.010 Urine Protein Trace Urine Ketones Negative Urine Blood Small H Urine Nitrite Negative Urine Bilirubin Negative Urine Urobilinogen 0.2 Ur Leukocyte Esterase Large H Urine RBC 0-2 Urine WBC >50 H Ur Epithelial Cells Rare Urine Crystals Negative Urine Bacteria Many Urine Casts Negative Urine Mucus Negative Ur Culture Indicated? Yes Urine Glucose Negative Last Vital Signs Temp 97.2 F L 07/22/23 12:14 Pulse 64 07/22/23 12:14 Resp 16 07/22/23 12:14 BP 89/43 L 07/22/23 12:14 Pulse Ox 96 07/22/23 12:14 Time Spent Time spent with Patient: 55-74 minutes (60 minutes of critical care time spent on this patient who has septic shock secondary to infected decubitus sacral ulcer and is currently requiring Levophed) Time was spent: preparing to see the patient(eg.review tests), obtaining and/or reviewing separately otained hiistory, ordering medications,tests, procedures, referring, communicating with other health director of patient care, indepentently interpreting results, counseling the patient and care coordination
[2023-07-22] MEDS: Lactated Ringers 1,000 ML 125 ML IV (15:47)
[2023-07-22 16:02] LABS: Potassium 5.9 mmol/L (3.5-5.1)
[2023-07-22] MEDS: CALCIUM GLUCONATE in NaCl 1 GM/50 ML BAG IVPB (16:55)
[2023-07-22] MEDS: Enoxaparin 30 MG/0.3 ML SYR SC (16:59)
[2023-07-22] MEDS: CEFEPIME 1 GM in Normal Saline 50 ML IVPB (17:36)
[2023-07-22] MEDS: DEXTROSE 5%-WATER 250 ML 9.4 ML (17:38)
[2023-07-22] MEDS: Norepinephrine in D5W 8 MG/250 ML BAG 9.375 MG IV (18:25)
[2023-07-22] MEDS: VANCOMYCIN/WATER (PEG) 2 GM/400 ML BAG IV (19:07)
[2023-07-22 19:51] LABS: Lactate 0.7 mmol/L (0.6-1.4)
[2023-07-22 20:02] LABS: Potassium 5.6 mmol/L (3.5-5.1)
[2023-07-23] VITALS (160 sets, daily range): BP systolic 64–260; BP diastolic 35–238; PULSE 52–207; RESP 11–30; TEMP 35.2–35.8; O2SAT 76–100
[2023-07-23] MEDS: Lactated Ringers 1,000 ML 125 ML IV ×4 (02:27→21:49)
[2023-07-23] MEDS: CEFEPIME 1 GM in Normal Saline 50 ML IVPB ×2 (04:02→16:38)
[2023-07-23] MEDS: Normal Saline Flush 10 ML SYR IVP ×2 (06:00→21:49)
[2023-07-23 06:53] LABS: HCT 33.2 % (40.0-50.0); HGB 10.2 g/dL (13.5-17.5); MCH 29.8 pg (27.0-33.0); MCHC 30.7 % (32.0-36.0); MCV 97 fL (80-95); MPV 10.7 fL (8.0-11.0); Platelet Count 184 10^3/uL (130-400); RBC 3.42 10^6/uL (4.36-5.78); RDW-SD 73.7 fL; WBC 11.23 10^3/uL (4.4-10.8)
--- NOTE | 2023-07-23 06:56 | NUR.NOTE ---
0400-pt seen by Ellen SEO MARKETING SPECIALIST that there was blood all over the floor near patient and that his tubing from both the IID and the midline and oxygen were on the floor. Patient had blood over most of the top half of his body. bathed with assist of 2 staff. sheets changed. New iv number 20g started in left wrist and LR at 125cc/h restarted. lab attempted to draw blood without success and this nurse tried through the new iv without success. labs were later successfully drawn by another lab engineer. Dr. Eldridge notified and ordered a new midline.
[2023-07-23 07:11] LABS: Anion Gap 11.1 mmol/L (3-11); CO2 23.9 mmol/L (21.0-32.0); CREATININE 2.5 mg/dL (0.70-1.30); Calcium 9.9 mg/dL (8.5-10.1); Chloride 103 mmol/L (98-107); Estimated GFR 27.64 (mL/min/1.73m2); Glucose 104 mg/dL (74-106); Magnesium 2.2 mg/dL (1.8-2.4); Potassium 5.4 mmol/L (3.5-5.1); Sodium 138 mmol/L (136-145)
[2023-07-23 07:14] LABS: RDW 20.5 % (11.8-14.1)
[2023-07-23 07:19] LABS: Vancomycin, Random 33.6 ug/mL
[2023-07-23 07:20] LABS: BUN 93 mg/dL (7-18)
--- NOTE | 2023-07-23 08:32 | INITIAL_ITS ---
Date of service: 07/23/23 Time of Service: 08:32 Care Management Initial Assmt Initial Assessment REASON FOR HOSPITALIZATION:: sepsis PREVIOUS FUNCTIONAL STATUS/SOCIAL/FAMILY SUPPORTS:: Kody has an apartment at the [facility] in [place] but has been in a nursing home facility since his last hospitalization in May. He was initially transferred to [facility] in [place] however when a bed became available at [facility], sally e transferred there. Isra does not have any biological children but is close to two adopted children, Mary and Tay, that he has known since . [facility]. Isra has [facility] and was receiving care from nursing and LNAs. His network program manager is Breann Major and his sister Mariluz is his DPOA. CURRENT FUNCTIONAL STATUS:: Isra was sitting up in bed and appeared quite ill when CM met with him. He was slow to respond to questions but was alert and oriented X3. Isra has been in a nursing home facility for almost 6 weeks and, per his assessment, has not made much progress. His sacral decubitus has gotten worse and is the likely source of his sepsis. He informed CM that he has not been getting out of bed. Isra verbalized that he still wants to return to his apartment at [facility] but is not sure when or if that will happen. ADVANCE DIRECTIVES:: On file. Sister Mariluz [facility] Has patient been provided with info about the portal/API?: Yes Did the patient sign up for the portal?: Yes CODE STATUS:: DNR/DNI INSURANCE COVERAGE / FINANCIAL ISSUES:: Medicare Medicaid CURRENT HOME/COMMUNITY SERVICES/EQUIPMENT:: staying in a nursing home facili and receives assistance with all care needs. PRIMARY CARE PHYSICIAN:: Renan Garcia POTENTIAL DISCHARGE NEEDS:: follow up with PCP and plan of care PATIENT/FAMILY EDUCATION NEEDS:: Review discharge instructions, activity, follow up plan, limitations, discuss Ask Me Three TRANSPORTATION:: via facility wheelchair van PLAN:: Anticipate Isra will return to [facility] when medically stable. He will follow up with facility providers and plan of care and transport via facility van vs EMS. CM will follow and continue to assess for discharge needs. PFSH All Active Problems (Updated 07/23/23 @ 12:10 by Andriy Benitez MD) Abnormal urine color (Acute) Hyperkalemia (Acute) Acute on chronic kidney failure (Acute) Septic shock (Acute) Pressure ulcer (Acute) Ulcer of sacral region, unstageable (Acute) Anemia (Chronic) HCAP (healthcare-associated pneumonia) (Acute) Atopic dermatitis (Acute) Pulmonary embolism (Chronic) Cellulitis (Acute) Cervical spondylosis without myelopathy (Acute) Perineal ulcer (Acute) Cervical spine arthritis (Acute) Cervical radicular pain (Acute) Viral conjunctivitis of both eyes (Acute) Hypoadrenergic postural hypotension (Acute) Dyspnea (Acute) Conductive hearing loss, bilateral (Acute) Chronic serous otitis media, bilateral (Acute) Recurrent serous otitis media of left ear (Acute) Intertrigo (Acute) Sensorineural hearing loss, bilateral (Acute) Conductive hearing loss in right ear (Acute) Chronic serous otitis media, right ear (Acute) Nasal vestibulitis (Acute) Mixed hearing loss, bilateral (Acute) Hearing deficit (Acute) Acute serous otitis media of right ear (Acute) Onychomycosis (Acute) Chronic Nephrotic syndrome (Acute) Pancreatic lesion (Acute) Hypoattenuation seen on CT 05/09 Fluid retention (Acute) Thrombosis of right saphenous vein (Acute) Left femoral vein DVT (Acute) Anxiety and depression (Chronic) Hypertrophic toenail (Acute) Cor pulmonale (chronic) (Chronic) Incontinence of bowel (Acute) Acute kidney injury (Acute ~09/28/19) due to methotrexate therapy Weakness of both lower extremities (Acute) Hyperuricemia (Acute) Paroxysmal A-fib (Acute) Dehydration (Acute) Limited code status (Acute) Pleural effusion (Acute) Abdominal lymphadenopathy (Acute) DVT (deep venous thrombosis) (Chronic) Mediastinal adenopathy (Acute) Lung mass (Acute) COPD exacerbation (Acute) Respiratory distress (Acute) Overgrown toenails (Acute) DJD (degenerative joint disease) (Chronic) Depressive disorder (Chronic) Crohn's disease (Chronic) Self Reported Venous stasis ulcer of ankle limited to breakdown of skin (Acute) Mitral regurgitation (Chronic) Lymphedema of both lower extremities (Chronic) Ischemic ulcer of right ankle, limited to breakdown of skin (Acute) Venous insufficiency of both lower extremities (Chronic) as above Left varicocele (Acute 05/09/17) Microscopic hematuria (Acute 02/03/16) Osteoarthritis of hip (Acute 12/14/12) Right hydrocele (Acute 02/04/17) Osteoarthritis of hip (Acute 01/14/14) Total hip arthroplasty by Dr. Jose Nieves 01/14/14; Ceramic head; press fit. Mitral valve prolapse (Chronic) Microscopic hematuria (Acute) Medical History Emphysema lung Right femoral vein DVT Hypotension Venous stasis ulcer of right lower leg with edema of right lower leg Cellulitis of right leg Housing problems Tobacco use disorder Alcohol dependence in remission Anxiety 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 Ulcer of right lower extremity Gastroesophageal reflux disease Osteoarthritis Hypercholesterolemia BPH (benign prostatic hyperplasia) Surgical History Total replacement of hip bilateral Tonsillectomy and adenoidectomy Repair of umbilical hernia Repair of inguinal hernia Bilateral EGD - MAC Colonoscopy - MAC Cholecystectomy (11/01/17) Extraction of cataract Family History Mother Breast cancer Hypertension Anxiety Father CHF (congestive heart failure) Maternal Aunt Diabetes Social History Smoking/Tobacco Use Status: Former Tobacco Use Quit Date: 08/23/19 Tobacco: How many years used: 50 Quit status: quit date established Smoking risk assessment performed?: Yes Alcohol Intake: former Year quit: 2007 Drug use: Never Substance use type: does not use Adopted: No Caregiver/Support person: Yes Foster care: No Household members: other Details: Self Housing: apartment Number of Children: 0 number of grandchildren: 0 Communication Needs: None Education Level: vocational Do you need help understanding health information?: Often current occupation: Disabled Pets and animals: No Sexually active: No Do you think of yourself as: straight/heterosexual Current gender identity: male What is your relationship status?: How often do you talk on the phone with friends or family?: three or more times per week How often do you get together with friends or relatives?: decline to answer Do you belong to any clubs or organized social groups?: yes Panel score (0-1 are the most socially isolated patients): 2 What type of physical activity do you participate in: other Details: Stretching - ROM - arms and wheelchair-bound Duration: 15-30 minutes/day Frequency: 3-4 times per week Yakelin/Yarsani: Jain Special yakelin needs: No Seatbelt use: always Drive intox or ride w/intox limb driver: No (Does not apply) Do you feel safe in your relationship?: Yes Additional Social history: unable to assess privately SDOH(Care Management) Screening Will the Patient Participate in the Screening?: Unable to obtain In the past 12 months, have you had to go without electric, gas, oil or water in your home?: no Have you or anyone in your house had to go without enough food to eat?: no Has lack of transportation kept you from medical appointments or from doing things needed for daily living?: yes Has anyone in your support network made you feel unsafe for any reason?: no Health Related Social Needs Health related social needs: transportation insecurity(Z59.82)
--- NOTE | 2023-07-23 09:17 | PGE_ITS ---
Date of Service Date of service: 07/23/23 Time of Service: 09:17 Assessment and Plan Assessment and plan (1) Pressure ulcer: Status: Acute Assessment and plan: tentative plan to proceed with pressure ulcer incision and debridement once stabilized there has been mild improvement in serum K level perioperative risk for bleeding associated with anticoagulant therapy -hold anticoagulants wound care: moistened kerlix gauze into wound daily cover with clean mepilex/allevens dressing suspected urine colonization vs. lower UTI -suprapubic catheter replaced with new Silicone-Free urinary catheter, and new urine drainage bag tentative plan for surgical debridement on Tuesday07/25/2023 continue IV antibiotics OK to resume renal diet today, heart healthy NPO after midnight on 07/25/2023 Qualifiers: Pressure injury location: buttock Pressure injury stage: unstageable (2) Abnormal urine color: Status: Acute Assessment and plan: replacement of suprapubic catheter at bedside high suspicion for urine colonization vs. uti will send UA and culture after exchange completed Subjective Subjective Interval history since last seen: no acute events overnight no subjective fevers/chill no chest pain improvement in electrolytes and renal function with appropriate resuscitation persistent discomfort, dirty wound wound care performed at bedside suprapubic catheter exchanged under sterile technique Exam Narrative Exam Narrative: gen: no acute distress heart: rrr, no m/r/g chest: reduced breath sounds, clear lung gonzales abd: obese abdomen, suprapubic catheter in place, exchanged by physician, cloudy urine output after exchange Objective Last Vital Signs Temp 96.1 F L 07/23/23 05:00 Pulse 95 H 07/22/23 22:16 Resp 24 07/22/23 22:16 BP 102/74 07/22/23 22:16 Pulse Ox 96 07/22/23 22:15 Laboratory Results - last 24 hr 07/22/23 07/22/23 07/22/23 12:55 13:00 13:22 WBC 14.33 H RBC 3.78 L Hgb 11.2 L Hct 36.1 L MCV 96 H MCH 29.6 MCHC 31.0 L RDW 21.0 H Plt Count 224 MPV 10.1 Immature Gran % 0.7 Neutrophils % 83.7 Lymphocytes % 6.8 Monocytes % 5.7 Eosinophils % 2.8 Basophils % 0.3 Nucleated RBC % 0.0 Absolute Neutrophils 11.99 H Absolute Lymphocytes 0.97 L Absolute Monocytes 0.82 H Absolute Eosinophils 0.40 Absolute Basophils 0.04 PT Cancelled 12.5 H INR Cancelled 1.3 H APTT Cancelled 48.0 H VBG pH 7.39 VBG pCO2 41 VBG pO2 39 VBG HCO3 25 VBG Total CO2 23 L VBG O2 Saturation 70 VBG Base Excess 0 VBG Lactate 1.3 Sodium 133 L Potassium 6.5 H* Chloride 97 L Carbon Dioxide 23.3 Anion Gap 12.7 H BUN 122 H* Creatinine 3.2 H Est GFR (CKD-EPI 2020) 20.56 Glucose 77 Calcium 10.1 Magnesium Total Bilirubin 0.5 AST 39 H ALT 36 Alkaline Phosphatase 148 H Total Protein 8.4 H Albumin 2.4 L Procalcitonin 0.8 Urine Color Yellow Urine Clarity Sl Cloudy Urine pH 6.0 Ur Specific [place] 1.010 Urine Protein Trace Urine Ketones Negative Urine Blood Small H Urine Nitrite Negative Urine Bilirubin Negative Urine Urobilinogen 0.2 Ur Leukocyte Esterase Large H Urine RBC 0-2 Urine WBC >50 H Ur Epithelial Cells Rare Urine Crystals Negative Urine Bacteria Many Urine Casts Negative Urine Mucus Negative Ur Culture Indicated? Yes Urine Glucose Negative Random Vancomycin 07/22/23 07/22/23 07/23/23 15:45 19:40 06:20 WBC 11.23 H RBC 3.42 L Hgb 10.2 L Hct 33.2 L MCV 97 H MCH 29.8 MCHC 30.7 L RDW 20.5 H Plt Count 184 MPV 10.7 Immature Gran % Neutrophils % Lymphocytes % Monocytes % Eosinophils % Basophils % Nucleated RBC % Absolute Neutrophils Absolute Lymphocytes Absolute Monocytes Absolute Eosinophils Absolute Basophils PT INR APTT VBG pH VBG pCO2 VBG pO2 VBG HCO3 VBG Total CO2 VBG O2 Saturation VBG Base Excess VBG Lactate 1.0 0.7 Sodium 138 Potassium 5.9 H 5.6 H 5.4 H Chloride 103 Carbon Dioxide 23.9 Anion Gap 11.1 H BUN 93 H* Creatinine 2.5 H Est GFR (CKD-EPI 2020) 27.64 Glucose 104 Calcium 9.9 Magnesium 2.2 Total Bilirubin AST ALT Alkaline Phosphatase Total Protein Albumin Procalcitonin Urine Color Urine Clarity Urine pH Ur Specific [place] Urine Protein Urine Ketones Urine Blood Urine Nitrite Urine Bilirubin Urine Urobilinogen Ur Leukocyte Esterase Urine RBC Urine WBC Ur Epithelial Cells Urine Crystals Urine Bacteria Urine Casts Urine Mucus Ur Culture Indicated? Urine Glucose Random Vancomycin 33.6 Time Spent with Patient Time Spent with Patient: 25-34 minutes Time was spent: preparing to see the patient(eg.review tests), obtaining and/or reviewing separately otained hiistory, ordering medications,tests, procedures, referring, communicating with other health care nurse rn and counseling the patient
[2023-07-23] MEDS: Norepinephrine in D5W 8 MG/250 ML BAG 9.375 MG IV (10:51)
[2023-07-23 12:49] LABS: Bilirubin Negative (Negative); Blood Large (Negative); Clarity Cloudy (Clear); Glucose Negative (Negative); Ketones Negative (Negative); Leukocyte Esterase Moderate (Negative); Nitrite Negative (Negative); Specific Gravity 1.015 (1.005-1.025); Urobilinogen 0.2 mg/dL (Up to 0.2)
[2023-07-23 13:03] LABS: Bacteria Rare HPF (Negative); C & S Indicated? C&S Done As Ordered; Crystals Negative HPF (Negative); Epithelial Cells Rare HPF (Negative); Mucus Negative (Negative); RBC 20-50 HPF (0-2); WBC >50 HPF (0-5)
--- NOTE | 2023-07-23 13:36 | PGE_ITS ---
Date of Service Date of service: 07/23/23 Time of Service: 13:37 Assessment and Plan Assessment and plan (1) Septic shock: Status: Acute Assessment and plan: - Patient meets criteria for septic shock with a white count of 14, and a respiratory rate greater than 20 in the setting of chronic stage IV decubitus ulcer, and with associated hypotension with mean arterial pressure persistently under 65 -He was started on cefepime and vancomycin which will be continued -Currently requiring Levophed, titrate with goal mean arterial pressure greater than 65 -Once patient is medically stabilized he will likely go to the OR for surgical debridement (2) Sacral decubitus ulcer: Status: Resolved Assessment and plan: - As noted above (3) Acute on chronic kidney failure: Status: Acute Assessment and plan: - Baseline creatinine 1.6, up to 3.2 on admission and back down to 2.5 AM 07/22 -Patient received total of 2 L LR in the emergency department -Will follow-up a.m. CMP (4) Hyperkalemia: Status: Acute Assessment and plan: - Potassium in emergency department 6.5 -No EKG was performed nor were any temporizing agents given to the patient while in the emergency department -EKG ordered by admitting hospitalist did not show any for dynamic T waves -Patient was given IV calcium -Repeat BMP showed improvement of potassium down to 5.9 once in the ICU and down to 5.4 AM 07/22 -Will continue LR at 125 mL an hour -Follow-up a.m. BMP (5) Diastolic dysfunction: Assessment and plan: - Hold off on home antihypertensives while patient is hypotensive -Will restart as tolerated Subjective Subjective Interval history since last seen: Patient states that he is doing well today. He understands he is continuing to be medically optimized with a plan for him to have surgical debridement of his sacral wound with surgery on Tuesday. Exam Narrative Exam Narrative: Chronically ill-appearing older gentleman laying in bed in no acute distress, ANO x 4, heart regular rhythm, lungs clear to auscultation bilaterally, abdomen soft, nontender, nondistended, please see general surgery and nurses note for description of patient's sacral wound Objective Last Vital Signs Temp 95.4 F L 07/23/23 10:31 Pulse 60 07/23/23 10:15 Resp 14 07/23/23 10:16 BP 88/53 L 07/23/23 10:15 Pulse Ox 96 07/23/23 10:16 Laboratory Results - last 24 hr 07/22/23 07/22/23 07/22/23 12:55 13:22 15:45 WBC RBC Hgb Hct MCV MCH MCHC RDW Plt Count MPV PT 12.5 H INR 1.3 H APTT 48.0 H VBG Lactate 1.0 Sodium 133 L Potassium 6.5 H* 5.9 H Chloride 97 L Carbon Dioxide 23.3 Anion Gap 12.7 H BUN 122 H* Creatinine 3.2 H Est GFR (CKD-EPI 2020) 20.56 Glucose 77 Calcium 10.1 Magnesium Total Bilirubin 0.5 AST 39 H ALT 36 Alkaline Phosphatase 148 H Total Protein 8.4 H Albumin 2.4 L Procalcitonin 0.8 Urine Color Urine Clarity Urine pH Ur Specific [place] Urine Protein Urine Ketones Urine Blood Urine Nitrite Urine Bilirubin Urine Urobilinogen Ur Leukocyte Esterase Urine RBC Urine WBC Ur Epithelial Cells Urine Crystals Urine Bacteria Urine Casts Urine Mucus Ur Culture Indicated? Urine Glucose Random Vancomycin 07/22/23 07/23/23 07/23/23 19:40 06:20 12:20 WBC 11.23 H RBC 3.42 L Hgb 10.2 L Hct 33.2 L MCV 97 H MCH 29.8 MCHC 30.7 L RDW 20.5 H Plt Count 184 MPV 10.7 PT INR APTT VBG Lactate 0.7 Sodium 138 Potassium 5.6 H 5.4 H Chloride 103 Carbon Dioxide 23.9 Anion Gap 11.1 H BUN 93 H* Creatinine 2.5 H Est GFR (CKD-EPI 2020) 27.64 Glucose 104 Calcium 9.9 Magnesium 2.2 Total Bilirubin AST ALT Alkaline Phosphatase Total Protein Albumin Procalcitonin Urine Color Yellow Urine Clarity Cloudy Urine pH 6.0 Ur Specific [place] 1.015 Urine Protein 30 H Urine Ketones Negative Urine Blood Large H Urine Nitrite Negative Urine Bilirubin Negative Urine Urobilinogen 0.2 Ur Leukocyte Esterase Moderate H Urine RBC 20-50 H Urine WBC >50 H Ur Epithelial Cells Rare Urine Crystals Negative Urine Bacteria Rare Urine Casts 0-1 RBC Urine Mucus Negative Ur Culture Indicated? C&S Done As Ordered Urine Glucose Negative Random Vancomycin 33.6 Time Spent with Patient Time Spent with Patient: >50 minutes Time was spent: preparing to see the patient(eg.review tests), obtaining and/or reviewing separately otained hiistory, ordering medications,tests, procedures, referring, communicating with other health home health care provider, indepentently interpreting results, counseling the patient and care coordination
[2023-07-23] MEDS: Enoxaparin 30 MG/0.3 ML SYR SC (16:38)
[2023-07-23 21:11] LABS: Vancomycin, Random 25.5 ug/mL
[2023-07-24] VITALS (96 sets, daily range): BP systolic 64–222; BP diastolic 42–200; PULSE 61–155; RESP 12–40; TEMP 36–37; O2SAT 75–97
[2023-07-24] MEDS: CEFEPIME 1 GM in Normal Saline 50 ML IVPB (03:20)
[2023-07-24] MEDS: Norepinephrine in D5W 8 MG/250 ML BAG 9.375 MG IV (04:03)
[2023-07-24] MEDS: VANCOMYCIN/WATER (PEG) 750 MG/150 ML BAG 150 MG IV (05:26)
[2023-07-24] MEDS: Lactated Ringers 1,000 ML 125 ML IV ×3 (05:35→23:26)
[2023-07-24 06:47] LABS: HCT 31.8 % (40.0-50.0); HGB 9.9 g/dL (13.5-17.5); MCH 29.9 pg (27.0-33.0); MCHC 31.1 % (32.0-36.0); MCV 96 fL (80-95); MPV 10.8 fL (8.0-11.0); Platelet Count 183 10^3/uL (130-400); RBC 3.31 10^6/uL (4.36-5.78); RDW-SD 74.3 fL; WBC 9.45 10^3/uL (4.4-10.8)
[2023-07-24 07:00] LABS: Anion Gap 10.8 mmol/L (3-11); BUN 60 mg/dL (7-18); CO2 22.2 mmol/L (21.0-32.0); CREATININE 1.7 mg/dL (0.70-1.30); Calcium 9.7 mg/dL (8.5-10.1); Chloride 108 mmol/L (98-107); Estimated GFR 43.91 (mL/min/1.73m2); Glucose 94 mg/dL (74-106); Sodium 141 mmol/L (136-145)
[2023-07-24 07:17] LABS: RDW 20.8 % (11.8-14.1)
--- NOTE | 2023-07-24 08:45 | W.PM.PROGNOT ---
Date of Service Date of service: 07/24/23 Time of Service: 08:45 Assessment and Plan Assessment and plan (1) Septic shock: Status: Acute Assessment and plan: - Patient meets criteria for septic shock with a white count of 14, and a respiratory rate greater than 20 in the setting of chronic stage IV decubitus ulcer, and with associated hypotension with mean arterial pressure persistently under 65 -He was started on cefepime and vancomycin which will be continued -Currently requiring Levophed 10mcg, titrate with goal mean arterial pressure greater than 65 -Once patient is medically stabilized he will likely go to the OR for surgical debridement (2) Sacral decubitus ulcer: Status: Resolved Assessment and plan: - As noted above (3) Acute on chronic kidney failure: Status: Acute Assessment and plan: - Baseline creatinine 1.6, up to 3.2 on admission and back down to 2.5 AM 07/22 -Patient received total of 2 L LR in the emergency department -Will follow-up a.m. CMP (4) Hyperkalemia: Status: Acute Assessment and plan: - Potassium in emergency department 6.5 -No EKG was performed nor were any temporizing agents given to the patient while in the emergency department -EKG ordered by admitting hospitalist did not show any for dynamic T waves -Patient was given IV calcium -Repeat BMP showed improvement of potassium down to 5.9 once in the ICU and down to 5.4 AM 07/22 and 5.0 on . -Will continue LR at 125 mL an hour -Follow-up a.m. BMP (5) Diastolic dysfunction: Assessment and plan: - Hold off on home antihypertensives while patient is hypotensive -Will restart as tolerated Subjective Subjective Interval history since last seen: Patient states that he feels about the same today. However, he was little more confused despair to yesterday as he asks when the ambulance was picking him up and initially did not realize he was in the hospital. Exam Narrative Exam Narrative: Chronically ill-appearing older gentleman laying in bed in no acute distress, awake, alert, oriented to person, was reoriented to place, heart regular rhythm, lungs clear to auscultation bilaterally, abdomen soft, nontender, nondistended, please see general surgery and nurses note for description of patient's sacral wound Objective Last Vital Signs Temp 96.8 F L 07/24/23 04:00 Pulse 72 07/24/23 07:01 Resp 21 07/24/23 08:30 BP 96/65 L 07/24/23 07:01 Pulse Ox 91 L 07/24/23 04:00 Laboratory Results - last 24 hr 07/23/23 07/23/23 07/24/23 12:20 20:40 06:00 WBC 9.45 RBC 3.31 L Hgb 9.9 L Hct 31.8 L MCV 96 H MCH 29.9 MCHC 31.1 L RDW 20.8 H Plt Count 183 MPV 10.8 Sodium 141 Potassium 5.0 Chloride 108 H Carbon Dioxide 22.2 Anion Gap 10.8 BUN 60 H Creatinine 1.7 H Est GFR (CKD-EPI 2020) 43.91 Glucose 94 Calcium 9.7 Urine Color Yellow Urine Clarity Cloudy Urine pH 6.0 Ur Specific [place] 1.015 Urine Protein 30 H Urine Ketones Negative Urine Blood Large H Urine Nitrite Negative Urine Bilirubin Negative Urine Urobilinogen 0.2 Ur Leukocyte Esterase Moderate H Urine RBC 20-50 H Urine WBC >50 H Ur Epithelial Cells Rare Urine Crystals Negative Urine Bacteria Rare Urine Casts 0-1 RBC Urine Mucus Negative Ur Culture Indicated? C&S Done As Ordered Urine Glucose Negative Random Vancomycin 25.5 Time Spent with Patient Time Spent with Patient: >50 minutes Time was spent: preparing to see the patient(eg.review tests), obtaining and/or reviewing separately otained hiistory, ordering medications,tests, procedures, referring, communicating with other health hospice home care coordinator, indepentently interpreting results, counseling the patient and care coordination
[2023-07-24] MEDS: Normal Saline Flush 10 ML SYR IVP ×2 (09:27→20:21)
[2023-07-24] MEDS: CEFEPIME 2 GM in Normal Saline 100 ML IVPB ×2 (12:26→23:58)
[2023-07-24 12:45] LABS: Vancomycin, Random 28.9 ug/mL
[2023-07-24] MEDS: Norepinephrine in D5W 8 MG/250 ML BAG 16.875 MG IV (17:29)
--- NOTE | 2023-07-24 17:38 | W.ANESVAS ---
Arterial Line Placement Date Performed: 07/24/23 Procedure Time: 17:20 Procedure Location: Intensive Care Unit Requesting Provider: Michel Trivedi Timeout Performed: No Sedation Given (Indicate Dose Given): No Sedation given Patient Mental Status: Awake Sterility: Hand Hygiene, Surgical Cap, Surgical Mask, Sterile Gloves, Sterile Drape/Sheet and Eye Protection Laterality: Right Insertion Site: Radial Arterial Line Catheter: 20G [place] Arterial Line Procedure: 1% Lidocaine to skin and subcutaneous tissue with 25g needle, Vessel accessed with catheter over needle, Guidewire placed with ease and Catheter placed without resistance Dressing: Tegaderm Applied and Mastisol Used Ultrasound: Sterile probe cover and gel used Ultrasound Image Saved?: Yes Number of Attempts (See previous attempts in note section): 1 Procedure Tolerated: No Complications and Patient tolerated well Procedure Outcome: Successful Performed By: Velasquez Bryson
--- NOTE | 2023-07-24 17:42 | ANES.PREOP_ITS ---
General Info Date of Service Date Performed: 07/24/23 Height: 5 ft 5 in Weight: 80.1 kg Body Mass Index (BMI): 29.3 Surgical Procedure: Operation Date: 07/22/23 14:10 Proposed Procedure Side Surgeon p I&D Decubitus Wound Right Andriy Benitez MD Meds Allergies and Home Medications Allergies Allergy/AdvReac Type Severity Reaction Status Date / Time levofloxacin [From Levaquin] AdvReac Intermediate purpura Verified 07/20/23 14:38 silicone AdvReac Intermediate Hives; Rash Verified 07/20/23 14:38 Sulfa (Sulfonamide AdvReac Intermediate Itching Verified 07/20/23 14:38 Antibiotics) Seasonal Allegies Allergy Intermediate Runny nose Uncoded 07/20/23 14:38 Home Medication Medication Instructions Recorded acetaminophen 325 mg tablet 325 - 650 mg (1 - 2 x 325 mg) PO 07/02/19 (Tylenol) Q4H PRN PRN #0 tabs nebulizers #1 ea 02/05/21 disposable gloves (Nitrile Exam #100 ea 10/08/21 Gloves) underpads (Bed Underpads) #40 ea 10/08/21 polyethylene glycol 3350 17 gram 17 g PO BID PRN PRN constipation 05/25/22 oral powder packet #100 ea albuterol sulfate 90 mcg/actuation 2 puff inhalation Q6H PRN 10/01/22 aerosol inhaler shortness of breath or wheezing #8.5 grams tiotropium 2.5 mcg-olodaterol 2.5 2 puff inhalation DAILY #4 grams 10/01/22 mcg/actuation mist for inhalation (Stiolto Respimat) torsemide 20 mg tablet 40 mg (2 x 20 mg) PO TID #540 tabs 11/01/22 miconazole nitrate 2 % topical 1 applic topical DAILY #28 grams 01/28/23 cream (Antifungal (miconazole)) calcium polycarbophil 625 mg 1,250 mg (2 x 625 mg) PO DAILY #90 02/22/23 tablet (FiberCon) tabs cholecalciferol (vitamin D3) 10 20 mcg (2 x 10 mcg (400 unit)) PO 02/22/23 mcg (400 unit) tablet DAILY #180 tabs spironolactone 25 mg tablet 25 mg PO DAILY #90 tabs 11/16/23 Pull ups #60 ea 04/05/23 ferrous sulfate 325 mg (65 mg See Rx Instructions .Route 04/21/23 iron) tablet .COMPLEX #28 tabs wedge pillow #1 ea 05/03/23 pregabalin 75 mg capsule (Lyrica) 75 mg PO BID #180 caps 05/16/23 potassium chloride 20 mEq 20 meq PO DAILY 05/24/23 tablet,extended release(part/cryst) ammonium lactate 12 % lotion 1 applic topical BID #400 grams 05/27/23 clotrimazole 1 % topical cream 1 applic topical PRN PRN #45 grams 05/27/23 vitamins A and D-white 1 applic topical PRN PRN #56 grams 05/27/23 petrolatum-lanolin topical ointment zinc oxide 20 % topical ointment 1 applic topical PRN PRN #56 grams 05/27/23 fluocinonide 0.05 % topical cream 1 applic topical BID #60 grams 06/02/23 metolazone 2.5 mg tablet 2.5 mg PO DAILY PRN Fluid overload 06/02/23 #20 tabs apixaban 5 mg tablet 10 mg (2 x 5 mg) PO BID #100 tabs 06/15/23 ascorbic acid (vitamin C) 500 mg See Rx Instructions .Route 06/16/23 tablet (Vitamin C) .COMPLEX #84 tabs docusate sodium 100 mg capsule 100 mg PO BID #60 caps 06/23/23 (Colace) Current Visit Medications: Current Medications Generic Name Dose Route Start Last Admin Trade Name Freq PRN Reason Stop Dose Admin Acetaminophen 0 mg 07/22/23 15:23 Acetaminophen 325 Mg Tab PO Q4H PRN PRN Docusate Sodium 100 mg 07/22/23 15:23 Docusate Sodium 100 Mg Cap PO TID PRN PRN Enoxaparin Sodium 40 mg 07/24/23 16:00 Enoxaparin 40 Mg/0.4 Ml Syr SC Q24H ANIVAL Ringer's Solution 1,000 mls @ 125 mls/hr 07/22/23 15:45 07/24/23 15:02 IV 125 mls/hr INFUSION ANIVAL Administration Norepinephrine Bitartrate 8 mg in 250 mls @ 9.375 mls/hr 07/22/23 16:45 07/24/23 17:29 IV 9 mcg/min INFUSION ANIVAL 16.875 mls/hr Administration Protocol 5 MCG/MIN Cefepime HCl 2 gm/ Sodium 100 mls @ 200 mls/hr 07/24/23 12:00 07/24/23 13:01 Chloride IVPB Infused Q12H ANIVAL Infusion Vancomycin/PEG/NADA/Lysine/Water 750 mg in 150 mls @ 150 mls/hr 07/25/23 06:00 Vancocin Injection IVPB Q24H ANIVAL IV Miscellaneous Supplies 1 each 07/22/23 15:23 Iv Access IV DIRECTED ANIVAL Polyethylene Glycol 17 gm 07/22/23 15:23 Polyethylene Glycol 3350 17 Gm Packet PO DAILY PRN PRN Constipation Sodium Chloride 0 ml 07/22/23 15:23 07/23/23 06:00 Normal Saline Flush 10 Ml Syr IVP 20 ml PRN PRN Administration Sodium Chloride 0 ml 07/22/23 20:00 07/24/23 09:27 Normal Saline Flush 10 Ml Syr IVP 40 ml BID ANIVAL Administration Sodium Chloride 0 ml 07/22/23 15:23 Normal Saline 10 Ml Vial IJ DIRECTED PRN Sodium Hypochlorite 473 ml 07/23/23 13:00 07/24/23 10:55 Dakin's Solution 0.25% 473 Ml Btl TP 1 applic DAILY ANIVAL Administration PFSH Active Problems Active Problems: Problem Status Onset Code Abnormal urine color R39.89 Hyperkalemia E87.5 Acute on chronic kidney failure N17.9, N18.9 Septic shock A41.9, R65.21 Pressure ulcer L89.90 Ulcer of sacral region, unstageable L98.429 Anemia D64.9 HCAP (healthcare-associated pneumonia) J18.9 Atopic dermatitis L20.9 Pulmonary embolism I26.99 Cellulitis L03.90 Cervical spondylosis without myelopathy M47.812 Perineal ulcer L98.499 Cervical spine arthritis M47.812 Cervical radicular pain M54.12 Viral conjunctivitis of both eyes B30.9 Hypoadrenergic postural hypotension E27.40, I95.1 Dyspnea R06.00 Conductive hearing loss, bilateral H90.0 Chronic serous otitis media, bilateral H65.23 Recurrent serous otitis media of left ear H65.92 Intertrigo L30.4 Sensorineural hearing loss, bilateral H90.3 Conductive hearing loss in right ear H90.11 Chronic serous otitis media, right ear H65.21 Nasal vestibulitis J34.89 Mixed hearing loss, bilateral H90.6 Hearing deficit H91.90 Acute serous otitis media of right ear H65.01 Onychomycosis B35.1 Nephrotic syndrome N04.9 Pancreatic lesion K86.9 Fluid retention R60.9 Thrombosis of right saphenous vein I82.811 Left femoral vein DVT I82.412 Anxiety and depression F41.9, F32.9 Hypertrophic toenail L60.2 Cor pulmonale (chronic) I27.81 Incontinence of bowel R15.9 Acute kidney injury ~09/28/19 N17.9 Weakness of both lower extremities R29.898 Hyperuricemia E79.0 Paroxysmal A-fib I48.0 Dehydration E86.0 Limited code status Pleural effusion J90 Abdominal lymphadenopathy R59.0 DVT (deep venous thrombosis) Mediastinal adenopathy R59.0 Lung mass R91.8 COPD exacerbation J44.1 Respiratory distress R06.03 Overgrown toenails L60.2 DJD (degenerative joint disease) M19.90 Depressive disorder F32.9 Crohn's disease K50.90 Venous stasis ulcer of ankle limited to breakdown of skin I83.003, L97.301 Mitral regurgitation I34.0 Lymphedema of both lower extremities I89.0 Ischemic ulcer of right ankle, limited to breakdown of skin Venous insufficiency of both lower extremities I87.2 Left varicocele 05/09/17 I86.1 Microscopic hematuria 02/03/16 R31.29 Osteoarthritis of hip 12/14/12 M16.9 Right hydrocele 02/04/17 N43.3 Osteoarthritis of hip 01/14/14 M16.9 Mitral valve prolapse I34.1 Microscopic hematuria R31.29 Medical History Medical History Emphysema lung Right femoral vein DVT Hypotension Venous stasis ulcer of right lower leg with edema of right lower leg Cellulitis of right leg Housing problems Tobacco use disorder Alcohol dependence in remission Anxiety 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 Ulcer of right lower extremity Gastroesophageal reflux disease Osteoarthritis Hypercholesterolemia BPH (benign prostatic hyperplasia) Surgical History Surgical History Total replacement of hip bilateral Tonsillectomy and adenoidectomy Repair of umbilical hernia Repair of inguinal hernia Bilateral EGD - MAC Colonoscopy - MAC Cholecystectomy (11/01/17) Extraction of cataract Tobacco Smoking/Tobacco Use Status: Former Tobacco Use Alcohol Alcohol Intake: former Year quit: 2007 Substance Use Substance use: Never Substance use type: does not use Vital Signs and Lab Results Vital Signs Most Recent Vital Signs in EMR: Most Recent Vital Signs Temp Pulse Resp BP Pulse Ox 36.8 C 91 H 18 82/56 L 95 07/24/23 17:20 07/24/23 16:31 07/24/23 17:15 07/24/23 16:31 07/24/23 17:20 Lab Results 07/24/23 06:00 07/25/23 05:50 Blood Type / Crossmatch: 2 Patient ABO/Rh B Positive 07/02/23 Antibody Screen NEGATIVE 07/02/23 Crossmatch See Detail 07/02/23 Complete Blood Count: 2 White Blood Count 9.45 10^3/uL (4.4-10.8) 07/24/23 06:00 Red Blood Count 3.31 10^6/uL (4.36-5.78) L 07/24/23 06:00 Hemoglobin 9.9 g/dL (13.5-17.5) L 07/24/23 06:00 Hematocrit 31.8 % (40.0-50.0) L 07/24/23 06:00 Platelet Count 183 10^3/uL (130-400) 07/24/23 06:00 Venous Blood Lactate 0.7 mmol/L (0.6-1.4) 07/22/23 19:40 Complete Metabolic Panel: 2 Sodium 142 mmol/L (136-145) 07/25/23 05:50 Potassium 4.5 mmol/L (3.5-5.1) 07/25/23 05:50 Chloride 109 mmol/L (98-107) H 07/25/23 05:50 Carbon Dioxide 22.6 mmol/L (21.0-32.0) 07/25/23 05:50 BUN 35 mg/dL (7-18) H 07/25/23 05:50 Creatinine 1.5 mg/dL (0.70-1.30) H 07/25/23 05:50 Est GFR (CKD-EPI 2020) 51.03 (mL/min/1.73m2) 07/25/23 05:50 Magnesium 2.2 mg/dL (1.8-2.4) 07/23/23 06:20 Calcium 9.3 mg/dL (8.5-10.1) 07/25/23 05:50 Albumin 2.4 g/dL (3.4-5.0) L 07/22/23 12:55 Glucose 99 mg/dL (74-106) 07/25/23 05:50 Liver Function Panel: 2 Alanine Aminotransferase (ALT/SGPT) 36 U/L (16-63) 07/22/23 12: 55 Aspartate Amino Transf (AST/SGOT) 39 U/L (15-37) H 07/22/23 12: 55 Coagulation Panel: 2 INR International Normalized Ratio 1.3 (0.9-1.1) H 07/22/23 13 :22 Prothrombin Time 12.5 sec (9.1-11.1) H 07/22/23 13:22 Activated Partial Thromboplast Time 48.0 sec (23.6-32.8) H 07/22/23 13:22 Cardiac Panel: 2 No Data to Display Arterial Blood Gas: 2 No Data to Display Venous Blood Gas: 2 Venous Blood pH 7.39 (7.31-7.41) 07/22/23 12:55 Venous Blood Partial Pressure O2 39 mmHg 07/22/23 12:55 Venous Blood Partial Pressure CO2 41 mmHg (41-51) 07/22/23 12:5 5 Venous Blood Oxygen Saturation 70 % 07/22/23 12:55 Venous Blood HCO3 25 mmol/L (23-28) 07/22/23 12:55 Venous Blood Base Excess 0 mmol/L (-2-3) 07/22/23 12:55 Venous Blood Total Carbon Dioxide 23 mmol/L (24-29) L 07/22/23 12:55 Pancreas Panel: 2 No Data to Display Thyroid Panel: 2 No Data to Display Infectious Disease: 2 No Data to Display Blood Cultures: 2 No Data to Display Toxicology Panel: 2 No Data to Display Imaging and Studies Imaging and Studies Study information below may be from another EMR and interpreted by another provider. Please see original notes in EMR for more complete details. EKG Summary: EKG PATIENT NAME: Isra Mao V UNIT #: [id number] ORDERING PROVIDER: Tatiana Siddiqi M.D. PRIMARY CARE PROVIDER: RENAN GARCIA DO DATE/TIME OF SERVICE: 07/22/23 1445 : 1955 PERFORMING LOCATION: ICU APPROVED REPORT Exam: Resting ECG Reason for Exam: high potassium Patient Location: E HR:63 bpm ECG Measurements Heart Rate 63 AXIS UT 179 P 47 QRSd 119 QRS -9 QT 429 T32 QTc 441 Conclusion Sinus rhythm...normal P axis, V-rate 60- 99 Incomplete right bundle branch block...QRSd >112, terminal axis(90,270) Low voltage, extremity and precordial leads...extremity<0.5mV, precordial<1.0mV low voltage, no STEM LAD, minimal changes from previous - <Electronically signed by Tatiana Siddiqi M.D. in OV> E-Sign Date: 07/22/23 E-Sign Time: 1823 Echocardiogram Summary: Patient Name: Isra Mao V Unit #: [id number] Loc: DI Ordering Provider: Renan Garcia DO Status: REG CLI Primary Care Provider: Renan Garcia DO Date of Exam: 07/06/22 Sex: M Admission Date: 07/06/22 : 1955 Age: 67 APPROVED REPORT EXAM: Comprehensive 2D, Doppler, and color-flow Echocardiogram Patient Location: Out-Patient [place] Worker: Ana M Deng RDCS (AE) Indications: Worsening dyspnea on exertion, Known CHF Other Information Study Quality: Poor. Technically limited study due to body habitus, inability to position patient exam done in wheelchair. Conclusion Technically difficult and suboptimal study Left ventricle appears grossly normal in size and systolic function. No segmental wall motion abnormalities are appreciated The left atrium, right ventricle and right atrium are not well visualized No structural or hemodynamically significant valvular disease is identified Normal estimated right ventricular systolic pressure 27 mmHg Wall motion Left Ventricle The left ventricle is normal size. The overall left ventricular systolic function appears normal. There is normal left ventricular wall thickness. There is no ventricular septal defect visualized. LVEF is 55%. Right Ventricle Right ventricle is not well visualized. Right ventricular systolic function could not be assessed. The RVSP is 26.6 mmHg. Atria Left atrium is not well visualized. Right atrium is not well visualized. The interatrial septum is intact with no evidence for an atrial septal defect. Aortic Valve The aortic valve is normal in structure. Aortic valve is trileaflet. There is no aortic valvular stenosis. No aortic regurgitation is present. Mitral Valve The mitral valve is normal in structure. No evidence of mitral valve stenosis. Mild mitral regurgitation. Tricuspid Valve The tricuspid valve is normal in structure. There is no tricuspid valve stenosis. Mild tricuspid regurgitation. Pulmonic Valve The pulmonary valve is normal in structure. There is no pulmonic valvular stenosis. Trace to mild pulmonic regurgitation. Great Vessels The aortic root is normal in size. The ascending aorta is normal in size. Ascending aorta is not visualized. IVC is normal in size and collapses >50% with inspiration. Pericardium There is no pericardial effusion. Pulmonary Function Summary: Pulmonary Function Test PATIENT NAME: Isra Mao V UNIT #: [id number] ADMITTING PROVIDER: Kinga Reynolds M.D. PRIMARY CARE PROVIDER: RENAN GARCIA DO DATE OF ADMIT: 10/14/22 : 1955 Date of service: 10/14/22 Time of Service: 13:08 Pulmonary Function Test Result Indications: Emphysema Interpretation Spirometry: There is no airflow limitation. There is no significant bronchodilator response. The FVC is low. Lung Volumes: Normal lung volumes Diffusion Capacity: Decreased diffusion Airway Pressure: Normal airways resistance Impression Isolated diffusion deficit. This can occur with early ILD, emphysema or pulmonary vascular disease. Clinical Correlation therefore is recommended. Anesthesia Assessment and Plan Anesthesia History Personal History: Unknown Anesthesia History Family History: Family History Unknown Exercise Tolerance Exercise Tolerance: Metabolic Equivalents<4 Cardiac & Pulmonary Exam Cardiac Exam: Normal S1/S2 Heart Sounds Pulmonary Exam: Wheezing Present and Rhonchi Present Implantable Cardiac Device Does patient have a Pacemaker or an ICD?: No Airway Exam Known Difficult Airway: No Mallampati Class: 3 Mouth Opening: Narrow (< 3cm) Thyromental Distance: Greater than 3 cm Neck Range of Motion: Full ROM Neck Circumference: Thick Teeth Condition: Generalized Poor Dentition ASA Classification ASA Score: ASA 4 Emergency Case?: No NPO Status NPO Status: NPO Clears >2 hours, Solids >8 hours Anesthesia Plan Resuscitation Status: Full Code Anesthesia Technique: General Anesthesia Airway Planned: Endotracheal Tube Monitors Used: Standard Monitors, Arterial Line and SedLine Preoperative Comments:: Pt in ICU, confused and not able to provide medical history. Talked with sister and she has limited information. Pt came through ED on Friday 07/21 with acute on chronic renal failure and potassium of 6.5. Pt appears in poor health with significant peripheral edema and mildly labored respiration. Pt is currently on Norepinephrine for BP support. Scheduled for I&D of decubitus wound on 07/24. M. Braydon, LUIS M Sig PMHx: MVP, COPD, GERD, cervical stenosis/spondylosis, CKDIII, DVT, anxiety/depression, pAfib, former smoker. Remains in ICU, confused, vanc/cefepime. norepi (5-10 mcg/min over night), Haldol for agitation, enoxaparin for DVT prohy. Art line, double lumen PICC in place.
[2023-07-24] MEDS: Enoxaparin 40 MG/0.4 ML SYR SC (18:05)
[2023-07-25] VITALS (35 sets, daily range): BP systolic 74–112; BP diastolic 49–87; PULSE 73–173; RESP 14–25; TEMP 36.4–37.1; O2SAT 79–96; BMI 29.3
--- NOTE | 2023-07-25 | DI.US_ITS ---
Exam(s) US RENAL EXAM: US RENAL CLINICAL HISTORY: sepsis, NAZARIO. TECHNIQUE: Gómez scale, color and spectral Doppler were used. COMPARISON: CT CT ABDOMEN WO/W from 04/21/2021 US US ABDOMEN from 07/29/2021 FINDINGS: Renal size in cm: Right: 10.1 left: 9.0 Echogenicity: Normal Hydronephrosis: No Cyst or mass: 13 millimeters cyst upper pole right kidney. 14 millimeter cyst upper pole left kidney . Nephrolithiasis: No Bladder:Empty. IMPRESSION: Small bilateral renal cysts. No evidence of hydronephrosis. DATA REPOSITORY:
[2023-07-25] MEDS: Haloperidol 5 MG/ML VIAL 4 MG IM (00:01)
[2023-07-25] MEDS: LORazepam 1 MG TAB PO ×2 (01:24→21:41)
[2023-07-25] MEDS: Acetaminophen 325 MG TAB PO (01:24)
[2023-07-25] MEDS: Norepinephrine in D5W 8 MG/250 ML BAG 22.5 MG IV (05:55)
[2023-07-25] MEDS: VANCOMYCIN/WATER (PEG) 750 MG/150 ML BAG 150 MG IVPB (05:55)
[2023-07-25 06:58] LABS: Anion Gap 10.4 mmol/L (3-11); BUN 35 mg/dL (7-18); CO2 22.6 mmol/L (21.0-32.0); CREATININE 1.5 mg/dL (0.70-1.30); Calcium 9.3 mg/dL (8.5-10.1); Chloride 109 mmol/L (98-107); Estimated GFR 51.03 (mL/min/1.73m2); Glucose 99 mg/dL (74-106); Potassium 4.5 mmol/L (3.5-5.1); Sodium 142 mmol/L (136-145)
[2023-07-25] MEDS: Lactated Ringers 1,000 ML 125 ML IV ×2 (07:42→17:30)
[2023-07-25] MEDS: ELECTROLYTE-R SOLUTION 1,000 ML 30 ML IV (09:30)
--- NOTE | 2023-07-25 10:22 | PDOC.CMPRO ---
Date of service: 07/25/23 Time of Service: 10:22 Care Management Progress Note Progress Note Text Progress Note Text: S/O:Isra was sitting up in bed when CM met with him today. He appeared quite confused and did not seem to recognize CM, well known to him from previous encounters. Isra was also very restless. He pulled out his midline this morning and was tossing and turning in the bed. When asked a question, he did not seem to comprehend what was said. At one point he said I am off today. Isra went to the OR this morning for debridement of his sacral decubitus ulcer. He remains ICU level of care and is still on a Levophed drip to maintain his blood pressure. A: Isra is a 68 year old man admitted on 07/22/23 with sepsis P:Anticipate Isra will return to [facility] when medically stable. He will follow up with facility providers and plan of care and transport via facility van vs EMS. CM will follow and continue to assess for discharge needs. SDOH(Care Management) Screening Will the Patient Participate in the Screening?: Unable to obtain In the past 12 months, have you had to go without electric, gas, oil or water in your home?: no Have you or anyone in your house had to go without enough food to eat?: no Has lack of transportation kept you from medical appointments or from doing things needed for daily living?: yes Has anyone in your support network made you feel unsafe for any reason?: no Health Related Social Needs Health related social needs: transportation insecurity(Z59.82)
[2023-07-25 10:24] LABS: HCT 31.7 % (40.0-50.0); HGB 9.4 g/dL (13.5-17.5); MCH 29.7 pg (27.0-33.0); MCHC 29.7 % (32.0-36.0); MCV 100 fL (80-95); MPV 11.1 fL (8.0-11.0); Platelet Count 159 10^3/uL (130-400); RBC 3.16 10^6/uL (4.36-5.78); RDW 21.2 % (11.8-14.1); RDW-SD 78.2 fL; WBC 11.16 10^3/uL (4.4-10.8)
--- NOTE | 2023-07-25 10:30 | ANES.VASC_ITS ---
Midline Placement Date Performed: 07/25/23 Procedure Time: 09:23 Requesting Provider: Kenyon Hodgson Procedure Location: Operating Room Sedation Given (Indicate Dose Given): No Sedation given Patient Mental Status: Awake Sterility: Hand Hygiene, Surgical Cap, Surgical Mask, Sterile Gloves and Chlorhexidine Laterality: Right Insertion Site: Brachial Midline Device: PowerGlide Pro 18G Catheter Length: 10 cm Midline Procedure Procedure: Vessel accessed with catheter over needle and Cat heter placed without resistance Dressing: Tegaderm Applied and Statlock Applied Blood Return: Present Flushes: Easily Ultrasound: Sterile probe cover and gel used Ultrasound Image Saved?: Yes Number of Attempts (See previous attempts in note section): 1 Procedure Tolerated: No Complications Procedure Outcome: Successful Performed By: Kenyon Hodgson
--- NOTE | 2023-07-25 10:45 | W.PM.OP ---
Date of service: 07/25/23 Time of Service: 10:47 Operative Note Operative Note DATE OF PROCEDURE: 07/25/23 PRE-OP DIAGNOSIS: unstageable pressure ulcer, sepsis POST-OP DIAGNOSIS: other Stage 4 pressure ulcer - to the level of the sacral bone, through the fascial layer, through the muscle layer, 6 x 4.5 cm open draining wound with undermining, 9 x 7.4 x 4 cm deep PROCEDURE: excisional debridement, infected stage IV pressure ulcer SURGEON: Andriy Benitez ANESTHESIA TYPE: General LMA/ETT Refer to Anesthesia Record ESTIMATED BLOOD LOSS: 25 PATHOLOGY: none sent COMPLICATIONS: None Patient was transported to: ICU Patient's condition: critical Implants: 1. Dakin's moistened Kerlix gauze sponge Indications: 1. Infected unstageable pressure ulcer, presumed source of sepsis Findings: 1. Full-thickness pressure ulcer, 6 x 3.5 centimeters skin opening 2. Tissue undermining circumferentially, 3 cm beneath the skin, 4 cm deep to the level of the sacral bone 3. Purulent necrotic fibrous drainage Procedure Description: Patient was transferred to the operating room, timeout performed from name, date of , medical record number, all staff present agreed upon proposed procedure excisional wound debridement of unstageable pressure ulcer all indicated procedures. The patient was placed under general endotracheal anesthesia without complications, a midline was placed, he is critically ill requiring vasopressor support. The patient was then positioned in a left lateral decubitus position with a beanbag, the left arm was extended, the bony prominences were padded, the right arm was supported with pillows the patient was secured to the table with a safety strap. Upon inspection of the wound, there was a 6 x 3.5 cm open full-thickness wound with fibropurulent discharge and drainage from the wound. This is a presumed source of sepsis. The wound was prepped and draped with a Betadine solution. Excisional debridement was performed, using forceps, and electrocautery to excise the fibropurulent discharge, and the necrotic nonviable tissue. This resulted in a wound with undermining circumferentially, next blunt mechanical debridement was performed with the tissue curette, to debride the persistent fibropurulent tissue. Debridement was carried out to the level of healthy tissue, through the subcutaneous tissue, into the muscle, and overlying the sacral bone, the debridement was carried down through the muscle layer into the bone. There is a high risk wound, likely there is osteomyelitis. Once mechanical debridement and excisional debridement were completed, the wound was measured, Undermining was measured to be a diameter of 9 cm in the craniocaudal dimension, 7.5 cm in the transverse dimension, and 4 cm deep down to the level of the bone. Hemostasis was obtained using electrocautery with the Bovie pen. Once the wound was clean and dry, 0.5% Dakin's moistened Kerlix gauze was packed into the wound for additional bacteriocidal activity, and to provide additional hemostasis. A Optiview pressure dressing was placed over the wound. Patient remains in critical condition, requiring vasopressor support, he is ASA class IV, at imminent risk of deterioration without critical care support. The patient will return to the intensive care unit.
--- NOTE | 2023-07-25 11:23 | W.PM.PROGNOT ---
Date of Service Date of service: 07/25/23 Time of Service: :24 Assessment and Plan Assessment and plan (1) Septic shock: Status: Acute Assessment and plan: Multiple sources of infection including recurrent urinary tract infections with Pseudomonas and E. coli with subsequent E. coli bacteremia and also possible infection source from his chronic decubitus wound. Patient is currently on vancomycin and cefepime. However the patient is showing signs of a diffuse erythematous rash over his face and trunk and arms suggestive of drug rash. Unclear as to whether or not this is d/t his vancomycin or his cefepime I will change his cefepime to aztreonam, treat rash/itching w/ benadryl Critical care time spent interviewing and examining the patient, reviewing studies, discussing case with patient's nurse and consulting physicians was 60 minutes (2) E. coli bacteremia: Status: Acute Assessment and plan: as above, repeat his blood cultures to see if he is clearing. (3) Complicated UTI (urinary tract infection): Status: Acute Assessment and plan: as above, no imaging of his kidneys was done, will get renal US to rule any obstructive component, nephrolithiasis (4) Sacral decubitus ulcer: Status: Resolved Assessment and plan: s/p I&D today by surgery, no wound cultures were done this admission but last one was from 05/22/23 and grew MRSA and mixed gram positives and gram negatives. His wound goes down to the bone per the surgeon's verbal report to me. I will add Flagyl for anearobic coverage and continue the vancomycin for MRSA coverage although could consider daptomycin. Qualifiers: Pressure injury stage: stage 4 Qualified Code(s): L89.154 - Pressure ulcer of sacral region, stage 4 (5) Acute on chronic kidney failure: Status: Acute Assessment and plan: improving. will continue w/ iv fluids and attempt to wean from norepinephrine. Qualifiers: Acute renal failure type: with acute tubular necrosis Chronic kidney disease stage: stage 3 (moderate) Chronic kidney disease stage 3 subtype: unspecified whether 3a or 3b Qualified Code(s): N17.0 - Acute kidney failure with tubular necrosis; N18.30 - Chronic kidney disease, stage 3 unspecified (6) Diastolic dysfunction: Assessment and plan: reported hx of HFPEF. POCUS exam this morning shows normal LV and RV function, no RWMA, mild MR, mild TR, IVC is small and collapsable >50% w/ inspiration. therefore he could benefit from IVF fluids. I could not get adequate A4C view to perform LVOT VTI Subjective Subjective Interval history since last seen: Isra remains confused, he is awake and oriented to person but not to place or time or circumstances. he denies any pain. He pulled out his midline this morning which led to him getting hypotensive SBP in 70's prior to going to the OR. Kenyon Hodgson MILLING SUPERVISOR, presented to the ICU and took the patient to PACU to place new midline. Patient then went to the OR where Dr. Benitez did debridement of his sacral decubitus wound, see his operative note for details. Exam Narrative Exam Narrative: Kody is alert he is oriented only to person not to place time or circumstance. He appears to be in no acute distress. Lungs are clear to auscultation Heart is regular distant heart tones no appreciable murmur rub or gallop Abdomen obese soft nontender normal active bowel sounds Extremities without peripheral cyanosis or edema he does have chronic venous stasis skin changes in his legs. Did not examine his decubitus wound on his buttocks as this was just debrided and packed. Objective Last Vital Signs Temp 36.4 C L 07/25/23 00:00 Pulse 91 H 07/24/23 16:31 Resp 16 07/25/23 08:00 BP 82/56 L 07/24/23 16:31 Pulse Ox 95 07/25/23 08:00 Laboratory Results - last 24 hr 07/24/23 07/25/23 12:05 05:50 WBC 11.16 H RBC 3.16 L Hgb 9.4 L Hct 31.7 L MCV 100 H D MCH 29.7 MCHC 29.7 L RDW 21.2 H Plt Count 159 MPV 11.1 H Sodium 142 Potassium 4.5 Chloride 109 H Carbon Dioxide 22.6 Anion Gap 10.4 BUN 35 H Creatinine 1.5 H Est GFR (CKD-EPI 2020) 51.03 Glucose 99 Calcium 9.3 Random Vancomycin 28.9 Time Spent with Patient Time Spent with Patient: >50 minutes Time was spent: preparing to see the patient(eg.review tests), referring, communicating with other health critical care physician (Dr. Benitez), indepentently interpreting results, counseling the patient and care coordination
--- NOTE | 2023-07-25 11:38 | W.ANESPOSTOP ---
Postoperative Evaluation Date, Time and Location Date Performed: 07/25/23 Time Performed: 11:38 Patient Location: Intensive Care Unit Vital Signs Most Recent Imported Vital Signs: Most Recent Vital Signs Temp Pulse Resp BP Pulse Ox 36.4 C L 91 H 16 82/56 L 95 07/25/23 00:00 07/24/23 16:31 07/25/23 08:00 07/24/23 16:31 07/25/23 08:00 Pain Score Most Recent Pain Score: Most Recent Pain Score Pain Level 2 07/24/23 17:20 Assessment Mental Status: Awake (Alert & Oriented to Patient Baseline) Airway and Respiratory Function: Patent airway with normal (patient baseline) respiratory exam Cardiovascular Function: Hemodynamically Stable Hydration Status: Adequately Hydrated Nausea & Vomiting: No Nausea or Vomiting Pain: Pain is tolerable per patient Peripheral Nerve Block: Patient did not receive a nerve block
--- NOTE | 2023-07-25 12:58 | PHACLINREV_ITS ---
Pharmacy Admission Review Admission Clinical Review Admission Pharmacy Review: Abnormal urine color (Acute) Hyperkalemia (Acute) Acute on chronic kidney failure (Acute) Septic shock (Acute) Pressure ulcer (Acute) levofloxacin [From Levaquin] Adverse Reaction (Intermediate, Verified 07/20/23 14:38) purpura silicone Adverse Reaction (Intermediate, Verified 07/20/23 14:38) Hives; Rash Sulfa (Sulfonamide Antibiotics) Adverse Reaction (Intermediate, Verified 07/20/23 14:38) Itching Seasonal Allegies Allergy (Intermediate, Uncoded 07/20/23 14:38) Runny nose Resuscitation Status DNR/DNI Height 5 ft 5 in Weight 84.3 kg Pharmacy Admission Review Renal Dosing Renal Dosing: BUN 35 mg/dL (7-18) H 07/25/23 05:50 Creatinine 1.5 mg/dL (0.70-1.30) H 07/25/23 05:50 Medications needing adjustments: Reviewed (CrCl 48.3 mL/min, BUN decreased from 60 to 35 and SCr decreased from 1.7 to 1.5) List of meds needing interventions: Current medications are okay Anticoagulation Anticoagulation: Hgb 9.4 g/dL (13.5-17.5) L 07/25/23 05:50 Hct 31.7 % (40.0-50.0) L 07/25/23 05:50 Plt Count 159 10^3/uL (130-400) 07/25/23 05:50 INR 1.3 (0.9-1.1) H 07/22/23 13:22 Creatinine 1.5 mg/dL (0.70-1.30) H 07/25/23 05:50 DVT Prophylaxis: Reviewed Medications: Enoxaparin (40mg daily) Relevant Labs Relevant Labs: Sodium 142 mmol/L (136-145) 07/25/23 05:50 Potassium 4.5 mmol/L (3.5-5.1) 07/25/23 05:50 Chloride 109 mmol/L (98-107) H 07/25/23 05:50 Magnesium 2.2 mg/dL (1.8-2.4) 07/23/23 06:20 Electrolytes, C-Reactive P, ESR: Reviewed (Hgb decreased from 9.9 to 9.4) Cardiac Review BP, HR, EF%: Reviewed (No VS charted yet for today, went into OR this morning for debridement) QTc Review QTc: Reviewed (441 from 07/21) IV to PO Switch IV Medications: Reviewed (Cefepime, electrolyte solution, Levophed and vancomycin) Home Meds Home Med List reviewed: Intervened Relevent Home Meds Not ordered & why?: Provider called this morning and asked that I do a med rec for patient. Contacted patients preferred pharmacy ([facility]). Updated as best I could using the med list from [employer], the patient hasn't picked up any of his meds since the beginning of May (30 day supply). I let provider know that it was updated. No orders have been put in yet. Current Meds Current Medication Order Review: Reviewed Comments: Patient is currently on Levophed drip at 8 mcg/min, last decreased today at 0627 Pharmacy Antibiotic Review Pharmacy Antibiotic Activity: C/S review and Reviewed, no change Comments: Patient continues on cefepime day 3 and vancomycin day 2. Current vancomycin dose is 750mg q24h with predicted AUC of 534 and trough of 15.3, level ordered for tomorrow at 0500. Initial blood and urine cultures grew E. coli. Repeat blood cultures pending, repeat urine cultures growing mixed gram negative andrzej. WBC slightly increased from 9.45 to 11.16.
--- NOTE | 2023-07-25 12:59 | POCUS_ITS ---
Pocus Exam Limited Cardiac Exam DATE OF EXAM: 07/25/23 TIME OF EXAM: 11:43 IS THIS A REPEAT EXAM DURING THIS ENCOUNTER: no REASON FOR EXAM: Hypotension VISUALIZED STRUCTURES: four chambers, LVOT, aortic valve, Interventricular sep maribel and IVC VIEW OBTAINED: Apical 4-Chamber (poor views of A4C), Parasternal long-axis, Parasternal short-axis and Subxiphoid PERTINENT FINDINGS/IMPRESSION: IVC inspiratory collapsability; No LV dysfunction, No pericardial effusion, No plethoric IVC, No RV dilation and No RV dysfunction INCIDENTAL FINDINGS: mild MR, moderate TR Exam complete
[2023-07-25] MEDS: CEFEPIME 2 GM in Normal Saline 100 ML IVPB (13:30)
[2023-07-25] MEDS: diphenhydrAMINE 50 MG/ML VIAL 25 MG IVP ×2 (14:02→21:42)
[2023-07-25 14:36] LABS: MRSA PCR Positive (Negative)
[2023-07-25] MEDS: AZTREONAM 2,000 MG in Normal Saline 100 ML 200 MG IVPB ×2 (15:00→21:41)
[2023-07-25] MEDS: OLANZapine 10 MG VIAL 5 MG IM (17:07)
[2023-07-25] MEDS: Enoxaparin 40 MG/0.4 ML SYR SC (17:08)
[2023-07-25] MEDS: metroNIDAZOLE 500 MG/100 ML BAG 100 MG IVPB (19:01)
[2023-07-25] MEDS: Normal Saline Flush 10 ML SYR IVP (22:30)
[2023-07-26] VITALS (92 sets, daily range): BP systolic 69–165; BP diastolic 47–138; PULSE 57–243; RESP 14–26; TEMP 36.5–37.1; O2SAT 77–95
[2023-07-26] MEDS: metroNIDAZOLE 500 MG/100 ML BAG 100 MG IVPB ×2 (02:02→10:03)
[2023-07-26] MEDS: Lactated Ringers 1,000 ML 125 ML IV ×2 (02:03→10:03)
[2023-07-26] MEDS: Normal Saline Flush 10 ML SYR IVP ×3 (02:59→21:57)
[2023-07-26] MEDS: AZTREONAM 2,000 MG in Normal Saline 100 ML 200 MG IVPB ×3 (05:27→21:56)
[2023-07-26 05:39] LABS: Abs Immature Grans 0.07 10^3/uL (0.0-0.06); Absolute Basophil Count 0.04 10^3/uL (0.0-0.2); Absolute Eosinophil Count 0.76 10^3/uL (0.0-0.7); Absolute Lymphocyte Count 0.87 10^3/uL (1.2-3.4); Absolute Monocyte Count 0.73 10^3/uL (0.1-0.8); Basophils % 0.5; HGB 8.8 g/dL (13.5-17.5); Immature Grans % 0.8; Lymphocytes % 10.3; MCH 29.6 pg (27.0-33.0); MCHC 29.3 % (32.0-36.0); MCV 101 fL (80-95); MPV 10.8 fL (8.0-11.0); Monocytes % 8.6; Neutrophils % 70.8; Platelet Count 121 10^3/uL (130-400); RBC 2.97 10^6/uL (4.36-5.78); RDW 21.2 % (11.8-14.1); RDW-SD 80.3 fL; WBC 8.47 10^3/uL (4.4-10.8)
[2023-07-26 05:59] LABS: Anion Gap 9.4 mmol/L (3-11); BUN 27 mg/dL (7-18); CO2 22.6 mmol/L (21.0-32.0); CREATININE 1.4 mg/dL (0.70-1.30); Chloride 116 mmol/L (98-107); Estimated GFR 55.43 (mL/min/1.73m2); Glucose 88 mg/dL (74-106); Potassium 4.4 mmol/L (3.5-5.1); Sodium 148 mmol/L (136-145)
[2023-07-26] MEDS: VANCOMYCIN/WATER (PEG) 750 MG/150 ML BAG 150 MG IVPB (05:59)
[2023-07-26 06:07] LABS: Anisocytosis 2+; Diff Comment RBC Morph Reviewed; Polychromasia Present; Vancomycin, Trough 16.3 ug/mL (10.0-20.0)
--- NOTE | 2023-07-26 08:42 | PDOC.CMPRO ---
Date of service: 07/26/23 Time of Service: 08:43 Care Management Progress Note Progress Note Text Progress Note Text: S/O: Isra was lying in bed when CM met with him. He was in soft restraints, as per report, he has pulled out multiple IV's and his midline. He appeared confused to CM, although he stated that he is doing ok, but he did not make eye contact with CM. CM spoke to his sister, Mariluz, and provided an update. Mariluz stated that she feels that it would be better for Isra for him to be placed in a SNF in [place], especially if he is not able to return home. CM discussed the process with Mariluz, stating that she would likely need to change his insurance to salvage determ[employer] in [place], and she would need to inquire within [place] regarding the resources, to determine if he would be able to seamlessly transition from a SNF in [place] to a SNF/LTC facility in [place]. CM also stated that the family would be responsible for paying for medical transport, which she expressed understanding about. CM stated that once Isra is medically stable, he will transition back to [facility], and the social media sr strategy manager at the facility would be able to support his transition to a SNF closer to her. CM will continue to follow. A: Isra is a 68 year old man admitted on 07/22/23 with sepsis P:Anticipate Isra will return to [facility] when medically stable. He will follow up with facility providers and plan of care and transport via facility van vs EMS. CM will follow and continue to assess for discharge needs. SDOH(Care Management) Screening Will the Patient Participate in the Screening?: Unable to obtain In the past 12 months, have you had to go without electric, gas, oil or water in your home?: no Have you or anyone in your house had to go without enough food to eat?: no Has lack of transportation kept you from medical appointments or from doing things needed for daily living?: yes Has anyone in your support network made you feel unsafe for any reason?: no Health Related Social Needs Health related social needs: transportation insecurity(Z59.82)
--- NOTE | 2023-07-26 12:00 | DI.CT_ITS ---
Exam(s) CT HEAD - STROKE PROTOCOL EXAM: CT HEAD - STROKE PROTOCOL CLINICAL HISTORY: encephalopathy. TECHNIQUE: Imaging Protocol: Axial computed tomography images with coronal and sagittal reformatted images were created and reviewed COMPARISON: CT CT HEAD CERV SPINE FACIAL WO from 06/04/2023 FINDINGS: Ventricles and Extra axial spaces: Normal in size and morphology for the patient's age. Hemorrhage: None. Cerebral parenchyma: No evidence of acute infarct or mass. Mild atrophy. mild white matter changes consistent with small vessel disease. Midline shift: None. Brainstem/Cerebellum: Normal. Calvarium: Normal. Visualized Paranasal sinuses:Clear. Mastoids: Clear. Soft Tissues: Unremarkable. ORBITS: Unremarkable. PITUITARY: Not enlarged. IMPRESSION: No acute intracranial process. RADIATION DOSE DELIVERED: Total DLP DATA REPOSITORY: All CT scans at this facility are submitted to the National Radiology Data Registry (NRDR) Dose Index Registry (DIR) with the [employer] (ACR). RADIATION OPTIMIZATION: All CT scans at this facility use at least one of these dose optimization te chniques: automated exposure control; mA and/or kV adjustment per patient size (includes targeted exa ms where dose is matched to clinical indication); or iterative reconstruction.
--- NOTE | 2023-07-26 12:08 | PGE_ITS ---
Date of Service Date of service: 07/26/23 Time of Service: 12:08 Assessment and Plan Assessment and plan (1) Septic shock: Status: Acute Assessment and plan: Multiple sources of infection including recurrent urinary tract infections with Pseudomonas and E. coli with subsequent E. coli bacteremia and also possible infection source from his chronic decubitus wound. Patient is currently on vancomycin and cefepime. Rash seems to be improving since cefepime was changed to Aztreonam. However, nursing also identified that he was getting a skin wash/ointment that contained silicone and he has a silicone allergy Critical care time spent interviewing and examining the patient, reviewing studies, discussing case with patient's nurse and consulting physicians was 30 minutes (2) E. coli bacteremia: Status: Acute Assessment and plan: repeat blood cultures from 07/24 is pending; initial blood cultures from 07/21 was one of two sets was positive for E coli (sensitive to all antibiotics except ampicillin). (3) Complicated UTI (urinary tract infection): Status: Acute Assessment and plan: renal US did not show any obstruction or stones (4) Sacral decubitus ulcer: Status: Resolved Assessment and plan: s/p I&D yesterday by surgery, no wound cultures were done this admission but last one was from 05/22/23 and grew MRSA and mixed gram positives and gram negatives. His wound goes down to the bone per the surgeon's verbal report to me. I will add Flagyl for anearobic coverage and continue the vancomycin for MRSA coverage although could consider daptomycin. Qualifiers: Pressure injury stage: stage 4 Qualified Code(s): L89.154 - Pressure ulcer of sacral region, stage 4 (5) Acute on chronic kidney failure: Status: Acute Assessment and plan: improving. will continue w/ iv fluids and attempt to wean from norepinephrine. Qualifiers: Acute renal failure type: with acute tubular necrosis Chronic kidney disease stage: stage 3 (moderate) Chronic kidney disease stage 3 subtype: unspecified whether 3a or 3b Qualified Code(s): N17.0 - Acute kidney failure with tubular necrosis; N18.30 - Chronic kidney disease, stage 3 unspecified (6) Diastolic dysfunction: Assessment and plan: reported hx of HFPEF. POCUS exam yesterday (Tuesday) shows normal LV and RV function, no RWMA, mild MR, mild TR, IVC is small and collapsable >50% w/ inspiration. therefore he could benefit from IVF fluids. I could not get adequate A4C view to perform LVOT VTI Subjective Subjective Interval history since last seen: Isra remains encephalopathic, he is alert but very confused, unable to answer where he is nor date nor circumstances of his hospitalization. Exam Narrative Exam Narrative: Isra is alert, oriented only to his name, not to time/place/nor recognize his caregivers/providers He does not appear to be in any acute distress, no acute pain or dyspnea SPO2 is mid 90's% Lungs: clear anteriorly, diminished at the bases posteriorly Heart: RRR, no murmur or rubs or gallops Abdomen: obese, soft, nontender, questionable fluid wave Skin: his puritis seems to be improving Legs/feet: he has stasis skin changes but no edema Objective Last Vital Signs Temp 37.1 C 07/26/23 10:00 Pulse 74 07/26/23 10:00 Resp 17 07/26/23 10:00 BP 89/61 L 07/26/23 10:00 Pulse Ox 77 L 07/26/23 00:22 Laboratory Results - last 24 hr 07/25/23 07/26/23 11:30 05:22 WBC 8.47 RBC 2.97 L Hgb 8.8 L Hct 30.0 L MCV 101 H MCH 29.6 MCHC 29.3 L RDW 21.2 H Plt Count 121 L MPV 10.8 Immature Gran % 0.8 Neutrophils % 70.8 Lymphocytes % 10.3 Monocytes % 8.6 Eosinophils % 9.0 Basophils % 0.5 Nucleated RBC % 0.0 Absolute Neutrophils 6.00 Absolute Lymphocytes 0.87 L Absolute Monocytes 0.73 Absolute Eosinophils 0.76 H Absolute Basophils 0.04 RBC Morphology See Below Polychromasia Present Anisocytosis 2+ Sodium 148 H Potassium 4.4 Chloride 116 H Carbon Dioxide 22.6 Anion Gap 9.4 BUN 27 H Creatinine 1.4 H Est GFR (CKD-EPI 2020) 55.43 Glucose 88 Calcium 9.0 Vancomycin Trough 16.3 MRSA (TEM-PCR) Positive A Time Spent with Patient Time Spent with Patient: 25-34 minutes Time was spent: preparing to see the patient(eg.review tests), ordering medications,tests, procedures, referring, communicating with other health medical care administrator, indepentently interpreting results and care coordination
--- NOTE | 2023-07-26 12:19 | W.PM.PROGNOT ---
Date of Service Date of service: 07/26/23 Time of Service: 12:19 Assessment and Plan Assessment and plan (1) Pressure ulcer: Status: Acute Assessment and plan: tentative plan to proceed with pressure ulcer incision and debridement once stabilized there has been mild improvement in serum K level perioperative risk for bleeding associated with anticoagulant therapy -Likely okay to resume anticoagulant therapy at this time, -History of VTE -Continue to observe for bleeding wound care: Dakin's solution moistened Kerlix gauze into the wound daily cover with clean Optiview/mepilex/allevens dressing suspected urine colonization vs. lower UTI -suprapubic catheter replaced with new Silicone-Free urinary catheter on 07/24/2023 continue IV antibiotics OK to resume renal diet today, heart healthy Surgery to sign off -Wound care as recommended above -Please reconsult surgery with any further questions regarding wound Qualifiers: Pressure injury location: buttock Pressure injury stage: stage 4 Laterality: right Qualified Code(s): L89.314 - Pressure ulcer of right buttock, stage 4 Subjective Subjective Interval history since last seen: Remains encephalopathic Unable to provide a review of systems Exam Narrative Exam Narrative: gen: no acute distress Psych: Remains encephalopathic, disoriented heart: rrr, no m/r/g abd: obese abdomen, suprapubic catheter in place, exchanged by physician Gluteus: Right gluteal wound with Kerlix gauze packing in place, nonbloody, nonpurulent Objective Last Vital Signs Temp 98.8 F 07/26/23 10:00 Pulse 74 07/26/23 10:00 Resp 17 07/26/23 10:00 BP 89/61 L 07/26/23 10:00 Pulse Ox 77 L 07/26/23 00:22 Laboratory Results - last 24 hr 07/25/23 07/26/23 11:30 05:22 WBC 8.47 RBC 2.97 L Hgb 8.8 L Hct 30.0 L MCV 101 H MCH 29.6 MCHC 29.3 L RDW 21.2 H Plt Count 121 L MPV 10.8 Immature Gran % 0.8 Neutrophils % 70.8 Lymphocytes % 10.3 Monocytes % 8.6 Eosinophils % 9.0 Basophils % 0.5 Nucleated RBC % 0.0 Absolute Neutrophils 6.00 Absolute Lymphocytes 0.87 L Absolute Monocytes 0.73 Absolute Eosinophils 0.76 H Absolute Basophils 0.04 RBC Morphology See Below Polychromasia Present Anisocytosis 2+ Sodium 148 H Potassium 4.4 Chloride 116 H Carbon Dioxide 22.6 Anion Gap 9.4 BUN 27 H Creatinine 1.4 H Est GFR (CKD-EPI 2020) 55.43 Glucose 88 Calcium 9.0 Vancomycin Trough 16.3 MRSA (TEM-PCR) Positive A Time Spent with Patient Time Spent with Patient: <25 minutes Time was spent: preparing to see the patient(eg.review tests), obtaining and/or reviewing separately otained hiistory and indepentently interpreting results
[2023-07-26] MEDS: Norepinephrine in D5W 8 MG/250 ML BAG 9.375 MG IV (13:01)
[2023-07-26 13:09] LABS: BE (Venous) -4 mmol/L (-2-3); HCO3 (Venous) 23 mmol/L (23-28); O2 Sat (Venous) 95 %; TCO2 (Venous) 22 mmol/L (24-29); pCO2 (Venous) 43 mmHg (41-51); pH (Venous) 7.33 (7.31-7.41); pO2 (Venous) 72 mmHg
[2023-07-26 13:23] LABS: Ammonia 23 umol/L (11-32)
[2023-07-26 13:27] LABS: INR 1.2 (0.9-1.1); PTT Activated 38.3 sec (23.6-32.8); Prothrombin Time 11.7 sec (9.1-11.1)
[2023-07-26 13:40] LABS: ALT 31 U/L (16-63); AST 48 U/L (15-37); Albumin 1.8 g/dL (3.4-5.0); Alkaline Phosphatase 110 U/L (46-116); Bilirubin, Direct 0.2 mg/dL (0.0-0.2); Bilirubin, Total 0.4 mg/dL (0.2-1.0); Total Protein 6.5 g/dL (6.4-8.2)
--- NOTE | 2023-07-26 14:39 | CHAPLAIN ---
I had a brief visit with Isra. He remains encephalopahic accorinding hospitalist's notes. He seems tired and a bit out of it. He didn't really respond to questions or recognize me. I met Isra a few years ago when his Brigitte was a patient and here. He's been in a few other times since then. He sometimes complains and is short with staff. I will continue to visit.
[2023-07-26] MEDS: Midodrine 2.5 MG TAB 5 MG PO ×2 (17:53→21:57)
[2023-07-26] MEDS: Enoxaparin 40 MG/0.4 ML SYR SC (17:53)
[2023-07-26] MEDS: Fludrocortisone 0.1 MG TAB PO (17:53)
[2023-07-26] MEDS: Hydrocortisone SOD SUC. 100 MG VIAL IVP (17:53)
[2023-07-26] MEDS: metroNIDAZOLE 500 MG/100 ML BAG 200 MG IVPB (17:54)
[2023-07-27] VITALS (77 sets, daily range): BP systolic 68–115; BP diastolic 41–94; PULSE 55–155; RESP 12–30; TEMP 36.5–37.2; O2SAT 81–95
[2023-07-27] MEDS: Hydrocortisone SOD SUC. 100 MG VIAL 50 MG IVP ×3 (00:46→15:48)
[2023-07-27] MEDS: Normal Saline Flush 10 ML SYR IVP ×4 (00:47→20:05)
[2023-07-27] MEDS: Lactated Ringers 1,000 ML 65 ML IV (00:49)
[2023-07-27] MEDS: diphenhydrAMINE 50 MG/ML VIAL 25 MG IVP (00:50)
[2023-07-27] MEDS: LORazepam 1 MG TAB PO (00:51)
--- NOTE | 2023-07-27 01:31 | NUR.NOTE ---
Nursing Note:Assumed care of pt at 2300 hours on 07/26/23. Pt was NOT on Levophed gtt at time I assumed care. Nursing reported off to me pt was off levophed and had been for a few hours. This was not reflected on the MAR. I had to re initiate Levo gtt at time documented in JUN. Wanted note of this.
[2023-07-27] MEDS: metroNIDAZOLE 500 MG/100 ML BAG 200 MG IVPB (01:52)
[2023-07-27] MEDS: Acetaminophen 325 MG TAB PO (02:37)
[2023-07-27] MEDS: AZTREONAM 2,000 MG in Normal Saline 100 ML 200 MG IVPB ×3 (05:36→21:53)
[2023-07-27] MEDS: VANCOMYCIN/WATER (PEG) 750 MG/150 ML BAG 150 MG IVPB (06:31)
[2023-07-27 06:54] LABS: Abs Immature Grans 0.11 10^3/uL (0.0-0.06); Absolute Basophil Count 0.02 10^3/uL (0.0-0.2); Absolute Eosinophil Count 0.01 10^3/uL (0.0-0.7); Absolute Lymphocyte Count 0.97 10^3/uL (1.2-3.4); Absolute Monocyte Count 0.11 10^3/uL (0.1-0.8); Absolute Neutrophil Count 8.18 10^3/uL (1.2-6.7); Basophils % 0.2; Eosinophils % 0.1; HGB 8.8 g/dL (13.5-17.5); Immature Grans % 1.2; Lymphocytes % 10.3; MCH 29.2 pg (27.0-33.0); MCHC 28.4 % (32.0-36.0); MCV 103 fL (80-95); MPV 11.2 fL (8.0-11.0); Monocytes % 1.2; Platelet Count 122 10^3/uL (130-400); RBC 3.01 10^6/uL (4.36-5.78); RDW 21.2 % (11.8-14.1); RDW-SD 80.8 fL
[2023-07-27 07:07] LABS: Anion Gap 7.5 mmol/L (3-11); BUN 31 mg/dL (7-18); CO2 24.5 mmol/L (21.0-32.0); CREATININE 1.5 mg/dL (0.70-1.30); Chloride 118 mmol/L (98-107); Estimated GFR 51.03 (mL/min/1.73m2); Glucose 110 mg/dL (74-106); Potassium 4.8 mmol/L (3.5-5.1); Sodium 150 mmol/L (136-145)
[2023-07-27 07:37] LABS: Anisocytosis 1+; Diff Comment RBC Morph Reviewed
--- NOTE | 2023-07-27 08:32 | PDOC.CMPRO ---
Date of service: 07/27/23 Time of Service: 08:32 Care Management Progress Note Progress Note Text Progress Note Text: S/O: Isra was lying in bed when CM met with him. This morning CM attempted to meet with him twice but both times he was asleep and did not respond to his name. In the afternoon, CM went to see Isra again. This time he had his eyes open and seemed to recognize CM, although he did not speak. Per nursing, he has not been talking hardly at all today. He muttered a couple of words this afternoon but has not answered questions or initiated any conversation. Another trial off the nor-epinephrine drip was conducted today however his blood pressure could not be maintained so the Levophed was restarted. Isra's renal function seems to have stabilized and his creatinine is back to his baseline at 1.5. His WBC has also normalized and he remains afebrile. A: Isra is a 68 year old man admitted on 07/22/23 with sepsis P:Anticipate Isra will return to [facility] when medically stable. He will follow up with facility providers and plan of care and transport via facility van vs EMS. CM will follow and continue to assess for discharge needs. SDOH(Care Management) Screening Will the Patient Participate in the Screening?: Unable to obtain In the past 12 months, have you had to go without electric, gas, oil or water in your home?: no Have you or anyone in your house had to go without enough food to eat?: no Has lack of transportation kept you from medical appointments or from doing things needed for daily living?: yes Has anyone in your support network made you feel unsafe for any reason?: no Health Related Social Needs Health related social needs: transportation insecurity(Z59.82)
[2023-07-27] MEDS: metroNIDAZOLE 500 MG/100 ML BAG 100 MG IVPB ×2 (09:29→18:49)
[2023-07-27] MEDS: Fludrocortisone 0.1 MG TAB PO (09:30)
[2023-07-27] MEDS: Midodrine 2.5 MG TAB 5 MG PO ×2 (09:30→14:33)
--- NOTE | 2023-07-27 10:13 | PGE_ITS ---
Date of Service Date of service: 07/27/23 Time of Service: 10:13 Assessment and Plan Assessment and plan (1) Septic shock: Status: Acute Assessment and plan: Multiple sources of infection including recurrent urinary tract infections with Pseudomonas and E. coli with subsequent E. coli bacteremia and also possible infection source from his chronic decubitus wound. Patient was on treatment w/ Vancomycin and Cefepime when I assumed his care on Tuesday, he had 3 days of this, then I changed to Aztreonam on Monday 07/24 d/t puritic skin rash over trunk, face and arms. He still has the rash although less intense. I also added Flagyl on Monday 07/24 to improve coverage of mixed andrzej from his sacral wound. Unfortunately no repeat wound culture was obtained at the time of his de bridement so I am basing coverage on mixed polymicrobial andrzej and MRSA from wound cultures in May. Urine culture this admission + for E coli and Pseudomonas, and blood culture w/ E coli. Repeat blood cultures 07/24 now now growth at 48 hr. Consider discontinuation of vancomycin in setting of his NAZARIO. I will ask nursing to reculture his decubitus wound at his dressing change. check MRI of sacrum to see if underlying osteomyelitis; consider change to daptomycin for MRSA coverage. continue aztreonam for the gram negative sepsis. D#6 vancomycin, D#3 aztreonam, D#3 flagyl Critical care time spent interviewing and examining the patient, reviewing studies, discussing case with patient's nurse and consulting physicians was 45 minutes (2) E. coli bacteremia: Status: Acute Assessment and plan: original blood culture 07/21 + E coli, resistant to ampicillin, amp/sulbactam but sensitive to all other antbiotics tested. received 3 days of cefepime, now on aztreonam (has had two days of aztreonam, now on d#3) (3) Acute metabolic encephalopathy: Status: Acute Assessment and plan: normal ammonia, CT head no acute findings, no evidence for hypercarbia, B12 level was normal in May. will get HIV, RPR, check EEG; the asumption is this is a metabolic encephalpathy from sepsis. I will ask Dr. Coffman to consult on him. Once we get him off the norepinephrine drip, consider MRI brain. (4) Complicated UTI (urinary tract infection): Status: Acute Assessment and plan: renal US did not show any obstruction or stones, SPC changed by surgery on admission (5) Sacral decubitus ulcer: Status: Resolved Assessment and plan: s/p debridement on 07/24. surgery has now signed off but have given wound dressing orders Qualifiers: Pressure injury stage: stage 4 Qualified Code(s): L89.154 - Pressure ulcer of sacral region, stage 4 (6) Acute on chronic kidney failure: Status: Acute Assessment and plan: improving. will continue w/ iv fluids and attempt to wean from norepinephrine. Qualifiers: Acute renal failure type: with acute tubular necrosis Chronic kidney disease stage: stage 3 (moderate) Chronic kidney disease stage 3 subtype: unspecified whether 3a or 3b Qualified Code(s): N17.0 - Acute kidney failure with tubular necrosis; N18.30 - Chronic kidney disease, stage 3 unspecified (7) Diastolic dysfunction: Assessment and plan: reported hx of HFPEF. POCUS exam (Tuesday) shows normal LV and RV function, no RWMA, mild MR, mild TR, IVC is small and collapsable >50% w/ inspiration. therefore he could benefit from IVF fluids. I could not get adequate A4C view to perform LVOT VTI Patient now on LR @ 65 mL/hr ( I had put him on higher rate couple days ago but decreased it yesterday to current rate. He is not eating and drinking much and still appears to be on the dry side, therefore will continue w/ hypotonic fluids while monitoring his UO and BMP. Subjective Subjective Interval history since last seen: Kody remains encephalopathic. He awakens opens his eyes and responds to his name and follows some simple commands but is fairly nonverbal to my questions. His blood pressure is better this morning and nursing has been able to wean down his norepinephrine drip down to 4 mcg/min. Exam Narrative Exam Narrative: Isra will open his eyes to when I call his name and he will raise his hands/arms when asked to do so, but he does not follow any commands that requires two steps, he does not answer my questions when I ask him how he is feeling and does not answer me when I aske him if he is in pain. He is hard of hearing but has his hearing aids in place and they were charged overnight He does not appear to be in acute distress, he is not tachypneic or tachycardic and on room air his SPO2 is in the low 90's. Neck: supple, nontender, no JVD Lungs: clear Heart: RRR Abdomen: obese, soft, nontender, no guarding Sacral decubitus: some black escar around the edges, wound has packing which I did not remove Extremities: no pitting edema, he has chronic venous stasis skin changes over the pretibial areas; no focal weakness in his arms or legs or hands Objective Last Vital Signs Temp 36.5 C 07/27/23 00:59 Pulse 85 07/27/23 06:03 Resp 15 07/27/23 06:03 BP 79/54 L 07/27/23 06:03 Pulse Ox 89 L 07/27/23 08:46 Laboratory Results - last 24 hr 07/26/23 07/27/23 12:55 05:30 WBC 9.40 RBC 3.01 L Hgb 8.8 L Hct 31.0 L MCV 103 H MCH 29.2 MCHC 28.4 L RDW 21.2 H Plt Count 122 L MPV 11.2 H Immature Gran % 1.2 Neutrophils % 87.0 Lymphocytes % 10.3 Monocytes % 1.2 Eosinophils % 0.1 Basophils % 0.2 Nucleated RBC % 0.0 Absolute Neutrophils 8.18 H Absolute Lymphocytes 0.97 L Absolute Monocytes 0.11 Absolute Eosinophils 0.01 Absolute Basophils 0.02 RBC Morphology See Below Anisocytosis 1+ PT 11.7 H INR 1.2 H APTT 38.3 H VBG pH 7.33 VBG pCO2 43 VBG pO2 72 VBG HCO3 23 VBG Total CO2 22 L VBG O2 Saturation 95 VBG Base Excess -4 L Sodium 150 H Potassium 4.8 Chloride 118 H Carbon Dioxide 24.5 Anion Gap 7.5 BUN 31 H Creatinine 1.5 H Est GFR (CKD-EPI 2020) 51.03 Glucose 110 H Calcium 9.0 Total Bilirubin 0.4 Conjugated Bilirubin 0.2 AST 48 H ALT 31 Alkaline Phosphatase 110 Ammonia 23 Total Protein 6.5 Albumin 1.8 L Time Spent with Patient Time Spent with Patient: 35-49 minutes Time was spent: preparing to see the patient(eg.review tests), obtaining and/or reviewing separately otained hiistory, ordering medications,tests, procedures, referring, communicating with other health director of primary care, indepentently interpreting results, counseling the patient and care coordination
[2023-07-27] MEDS: ALBUMIN HUMAN 25 GM/100 ML BTL IV ×2 (11:29→18:06)
[2023-07-27 13:02] LABS: Lab Add On Test DONE
[2023-07-27 13:18] LABS: ALT 32 U/L (16-63); AST 48 U/L (15-37); Albumin 1.7 g/dL (3.4-5.0); Alkaline Phosphatase 113 U/L (46-116); Bilirubin, Total 0.3 mg/dL (0.2-1.0); Total Protein 6.3 g/dL (6.4-8.2)
[2023-07-27 14:47] LABS: Anion Gap 9.9 mmol/L (3-11); BUN 32 mg/dL (7-18); CO2 22.1 mmol/L (21.0-32.0); CREATININE 1.5 mg/dL (0.70-1.30); Calcium 9.1 mg/dL (8.5-10.1); Chloride 119 mmol/L (98-107); Estimated GFR 51.03 (mL/min/1.73m2); Glucose 96 mg/dL (74-106); Potassium 4.1 mmol/L (3.5-5.1); Sodium 151 mmol/L (136-145)
[2023-07-27] MEDS: Enoxaparin 40 MG/0.4 ML SYR SC (15:49)
--- NOTE | 2023-07-27 16:20 | NCONE_ITS ---
Date of service: 07/27/23 Time of Service: 16:20 Assessment and Plan Assessment and plan (1) Acute metabolic encephalopathy: Status: Acute (2) Babinski reflex: Status: Acute (3) Weakness of both lower extremities: Status: Acute Assessment and plan: #1. AMS. His altered mental status likely due to ongoing metabolic derangements (specifically hypernatremia) and significant critical illness. Agree with further laboratory work-up, EEG, and MRI brain w/wo imaging once clinically stable. #2. Leg weakness and bilateral Babinski reflexes. It is not clear why he is wheelchair bound. MRI c-spine unremarkable in Jan. But given severity of his clinical decline since that imaging, would recommend repeat MRI c-spine w/wo as well as brain MRI w/wo and MRI t-spine w/wo. I think essential to do contrasted studies if renal status will allow given history of lymphoma and sepsis as we need to make sure no spinal abscess, recurrent lymphoma, etc. History of Present Illness History of Present Illness Chief Complaint: AMS Narrative: Handedness: right. HPI: Mr. Mao is a 68 year-old with ?spinal cord injury/wheelchair bound, CHF, COPD, atrial fibrillation, history of DVT, chronic kidney disease with anasarca, Chrohn's, anemia, and prior lymphoma. Mr. Mao reports becoming wheelchair bound in the last 6months. In reviewing his outpatient notes this seems correct. He was using a walker in September 2022 at a pulmonology visit and then was noted to be wheelchair bound in Apr 2023 when seen in the [facility] Pain clinic for neck pain. Since becoming wheel chair bound, he has rapidly developed a significant sacral wound. He was admitted to [facility] 06/04/23-06/15/23 for sepsis, NAZARIO secondary to the sacral wound, complicated by HCAP. He was admitted to [facility] post stay for help/care of the wound. Unfortunately the wound has been getting worse due to reports of poor compliance with offloading. He was admitted on 07/22/23 directly from surgery clinic due to need for surgical intervention on the wound. Work-up in the ER however, consistent with sepsis with noted hyponatremia, hyperkalemia, NAZARIO (Cr 3.2 with baseline 1.5-2), leukocytosis such that surgical treatment was delayed. He has been found to have UTI with pseudomonas and E.coli and bacteremia with E.coli - both thought to be due to the wound. He had a partial surgical debridment on 07/25/23. He remains on pressor support. He has had AMS since admission. This am was more lethargic and less responsive which has improved as the day has gone - likely due to receiving Benadryl overnight for itching/drug rash, and then lorazepam for agitation. His sodium level corrected but he now has hypernatrmia. NAZARIO has improved to baseline. Other work-up as below. Work-up: -CTH (07/26/23): No acute findings. Mild generalized atrophy. I reviewed these images personally and this is my personal interpretation; please see the official radiology report. -Labs at admit: W 14.33, Hgb 11.2, Na 133 (now 148 and 150 in last 2 days), K 6.5 (now improved), Cr 3.2 (now 1.4), AlkP 148 (now nml), ammonia 23 -Pending tests: TSH, HIV, RPR, EEG, MRI brain (once off pressors) Otherwise, I am not clear why he is wheelchair bound. At the time of his admission in May, it was recommended that he get an MRI of the entire neuro- axis. He declined this due to claustrophobia. It was recommended to be done as an outpatient, but it is not clear that this occurred. -MRI c-spine w/o (01/25/23): no cord compression. Cord does look thin to me in the portion of thoracic cord seen. I reviewed these images personally and this is my personal interpretation; please see the official radiology report. -MRI l-spine (06/09/23): lumbar scoliosis with significant degenerative changes. I question whether the axial and saggittal images are synced correctly. But based on the current sync, there is moderately severe central stenosis at L3-4 with severe NF Narrowing at R>L L2-3 and bilaterally at L3-4. I reviewed these images personally and this is my personal interpretation; please see the official radiology report. Review of Systems Unobtainable due to mental status PFSH All Active Problems (Updated 07/27/23 @ 21:57 by Juanita Coffman MD) Babinski reflex (Acute) Acute metabolic encephalopathy (Acute) Complicated UTI (urinary tract infection) (Acute) E. coli bacteremia (Acute) Abnormal urine color (Acute) Hyperkalemia (Acute) Acute on chronic kidney failure (Acute) Septic shock (Acute) Pressure ulcer (Acute) Ulcer of sacral region, unstageable (Acute) Anemia (Chronic) HCAP (healthcare-associated pneumonia) (Acute) Atopic dermatitis (Acute) Pulmonary embolism (Chronic) Cellulitis (Acute) Cervical spondylosis without myelopathy (Acute) Perineal ulcer (Acute) Cervical spine arthritis (Acute) Cervical radicular pain (Acute) Viral conjunctivitis of both eyes (Acute) Hypoadrenergic postural hypotension (Acute) Dyspnea (Acute) Conductive hearing loss, bilateral (Acute) Chronic serous otitis media, bilateral (Acute) Recurrent serous otitis media of left ear (Acute) Intertrigo (Acute) Sensorineural hearing loss, bilateral (Acute) Conductive hearing loss in right ear (Acute) Chronic serous otitis media, right ear (Acute) Nasal vestibulitis (Acute) Mixed hearing loss, bilateral (Acute) Hearing deficit (Acute) Acute serous otitis media of right ear (Acute) Onychomycosis (Acute) Chronic Nephrotic syndrome (Acute) Pancreatic lesion (Acute) Hypoattenuation seen on CT 05/09 Fluid retention (Acute) Thrombosis of right saphenous vein (Acute) Left femoral vein DVT (Acute) Anxiety and depression (Chronic) Hypertrophic toenail (Acute) Cor pulmonale (chronic) (Chronic) Incontinence of bowel (Acute) Acute kidney injury (Acute ~09/28/19) due to methotrexate therapy Weakness of both lower extremities (Acute) Hyperuricemia (Acute) Paroxysmal A-fib (Acute) Dehydration (Acute) Limited code status (Acute) Pleural effusion (Acute) Abdominal lymphadenopathy (Acute) DVT (deep venous thrombosis) (Chronic) Mediastinal adenopathy (Acute) Lung mass (Acute) COPD exacerbation (Acute) Respiratory distress (Acute) Overgrown toenails (Acute) DJD (degenerative joint disease) (Chronic) Depressive disorder (Chronic) Crohn's disease (Chronic) Self Reported Venous stasis ulcer of ankle limited to breakdown of skin (Acute) Mitral regurgitation (Chronic) Lymphedema of both lower extremities (Chronic) Ischemic ulcer of right ankle, limited to breakdown of skin (Acute) Venous insufficiency of both lower extremities (Chronic) as above Left varicocele (Acute 05/09/17) Microscopic hematuria (Acute 02/03/16) Osteoarthritis of hip (Acute 12/14/12) Right hydrocele (Acute 02/04/17) Osteoarthritis of hip (Acute 01/14/14) Total hip arthroplasty by Dr. Jose Nieves 01/14/14; Ceramic head; press fit. Mitral valve prolapse (Chronic) Microscopic hematuria (Acute) Medical History Emphysema lung Right femoral vein DVT Hypotension Venous stasis ulcer of right lower leg with edema of right lower leg Cellulitis of right leg Housing problems Tobacco use disorder Alcohol dependence in remission Anxiety 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 Ulcer of right lower extremity Gastroesophageal reflux disease Osteoarthritis Hypercholesterolemia BPH (benign prostatic hyperplasia) Surgical History Total replacement of hip bilateral Tonsillectomy and adenoidectomy Repair of umbilical hernia Repair of inguinal hernia Bilateral EGD - MAC Colonoscopy - MAC Cholecystectomy (11/01/17) Extraction of cataract Family History Mother Breast cancer Hypertension Anxiety Father CHF (congestive heart failure) Maternal Aunt Diabetes Social History Smoking/Tobacco Use Status: Former Tobacco Use Quit Date: 08/23/19 Tobacco: How many years used: 50 Quit status: quit date established Smoking risk assessment performed?: Yes Alcohol Intake: former Year quit: 2007 Drug use: Never Substance use type: does not use Adopted: No Caregiver/Support person: Yes Foster care: No Household members: other Details: Self Housing: apartment Number of Children: 0 number of grandchildren: 0 Communication Needs: None Education Level: vocational Do you need help understanding health information?: Often current occupation: Disabled Pets and animals: No Sexually active: No Do you think of yourself as: straight/heterosexual Current gender identity: male What is your relationship status?: How often do you talk on the phone with friends or family?: three or more times per week How often do you get together with friends or relatives?: decline to answer Do you belong to any clubs or organized social groups?: yes Panel score (0-1 are the most socially isolated patients): 2 What type of physical activity do you participate in: other Details: Stretching - ROM - arms and wheelchair-bound Duration: 15-30 minutes/day Frequency: 3-4 times per week Yakelin/Hoahaoism: [employer] Special yakelin needs: No Seatbelt use: always 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 or 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 (Does not apply) Do you feel safe in your relationship?: Yes Additional Social history: unable to assess privately Visit Medication and Allergies Active Medications Generic Name Dose Route Start Last Admin Trade Name Freq PRN Reason Stop Dose Admin Acetaminophen 0 mg 07/22/23 15:23 07/27/23 02:37 Acetaminophen 325 Mg Tab PO 650 mg Q4H PRN PRN Administration Diphenhydramine HCl 25 mg 07/25/23 13:27 07/27/23 00:50 Diphenhydramine 50 Mg/Ml Vial IVP 25 mg Q6H PRN PRN Administration Docusate Sodium 100 mg 07/22/23 15:23 Docusate Sodium 100 Mg Cap PO TID PRN PRN Enoxaparin Sodium 40 mg 07/24/23 16:00 07/27/23 15:49 Enoxaparin 40 Mg/0.4 Ml Syr SC 40 mg Q24H ANIVAL Administration Fludrocortisone Acetate 0.1 mg 07/26/23 16:00 07/27/23 09:30 Fludrocortisone 0.1 Mg Tab PO 0.1 mg DAILY ANIVAL Administration Hydrocortisone 50 mg 07/27/23 00:00 07/27/23 15:48 Hydrocortisone Sod Suc. 100 Mg Vial IVP 50 mg Q8H ANIVAL Administration Norepinephrine Bitartrate 8 mg in 250 mls @ 9.375 mls/hr 07/22/23 16:45 07/27/23 11:15 IV 4 mcg/min INFUSION ANIVAL 7.5 mls/hr Titration Protocol 5 MCG/MIN Aztreonam 2,000 mg/ Sodium 100 mls @ 200 mls/hr 07/25/23 14:00 07/27/23 14:33 Chloride IVPB 200 mls/hr Q8H ANIVAL Administration Metronidazole 500 mg in 100 mls @ 100 mls/hr 07/25/23 18:00 07/27/23 10:22 Flagyl IVPB 0 mls/hr Q8H ANIVAL Infusion Dextrose/Water 500 mls @ 150 mls/hr 07/27/23 10:15 IV INFUSION ANIVAL Albumin Human 25 gm in 100 mls @ 200 mls/hr 07/27/23 12:00 07/27/23 12:10 Alburx-25 IV 07/28/23 06:29 Infused Q6H ANIVAL Infusion Daptomycin 500 mg/ Sodium 50 mls @ 100 mls/hr 07/28/23 08:30 Chloride IVPB DAILY ANIVAL IV Miscellaneous Supplies 1 each 07/22/23 15:23 Iv Access IV DIRECTED ANIVAL Midodrine 10 mg 07/27/23 20:00 Midodrine 2.5 Mg Tab PO TID ANIVAL Polyethylene Glycol 17 gm 07/22/23 15:23 Polyethylene Glycol 3350 17 Gm Packet PO DAILY PRN PRN Constipation Sodium Chloride 0 ml 07/22/23 15:23 07/27/23 15:49 Normal Saline Flush 10 Ml Syr IVP 20 ml PRN PRN Administration Sodium Chloride 0 ml 07/22/23 20:00 07/27/23 09:30 Normal Saline Flush 10 Ml Syr IVP 20 ml BID ANIVAL Administration Sodium Chloride 0 ml 07/22/23 15:23 Normal Saline 10 Ml Vial IJ DIRECTED PRN Sodium Hypochlorite 473 ml 07/23/23 13:00 07/27/23 09:35 Dakin's Solution 0.25% 473 Ml Btl TP 1 applic DAILY ANIVAL Administration Allergies levofloxacin [From Levaquin] Adverse Reaction (Intermediate, Verified 07/20/23 14:38) purpura silicone Adverse Reaction (Intermediate, Verified 07/20/23 14:38) Hives; Rash Sulfa (Sulfonamide Antibiotics) Adverse Reaction (Intermediate, Verified 07/20/23 14:38) Itching Seasonal Allegies Allergy (Intermediate, Uncoded 07/20/23 14:38) Runny nose Exam Narrative Exam Narrative: Physical Exam: Constitutional: Patient of apparent stated age, scaling on arms, non distressed but does appear confused, appears chronically ill Neck: Supple, no meningismus CV: RRR, S1, S2, no murmur Resp: CTAB Abd: Soft, nontender, nondistended Neuro: MS/Language/Speech: Alert, oriented to self only, no aphasia; able to follow only simple one step commands; no dysarthria; perseverates greatly CN: PERRL, EOM appear intact by observation, visual gonzales appear full by threat - he could not finger count, trigeminal sensation intact, no facial asymmetry, hearing intact, palate elevates symmetrically, tongue protrudes midline, SCM and trap unable to test Motor: Normal tone. Legs/feet appear atrophied. Formal strength testing difficult due to AMS, 4-/5 bilateral in the UE. No movement proximally in the LE, distally 4-/5. Sensation: Intact to PP throughout; unable to test other modalities reliably due to mentation Reflexes: hyporeflexic throughout; +Babinski bilaterally; Coordination: Finger to nose performed without dysmetria, unable to perform HTS Gait: he is non ambulatory Results Last Vital Signs Temp 99.0 F 07/27/23 13:26 Pulse 84 07/27/23 14:31 Resp 16 07/27/23 14:31 BP 102/62 07/27/23 14:31 Pulse Ox 90 L 07/27/23 14:31 Labs 07/27/23 05:30 07/27/23 18:35 Labs: Laboratory Results - last 24 hr 07/27/23 07/27/23 07/27/23 05:30 06:30 10:30 WBC 9.40 RBC 3.01 L Hgb 8.8 L Hct 31.0 L MCV 103 H MCH 29.2 MCHC 28.4 L RDW 21.2 H Plt Count 122 L MPV 11.2 H Immature Gran % 1.2 Neutrophils % 87.0 Lymphocytes % 10.3 Monocytes % 1.2 Eosinophils % 0.1 Basophils % 0.2 Nucleated RBC % 0.0 Absolute Neutrophils 8.18 H Absolute Lymphocytes 0.97 L Absolute Monocytes 0.11 Absolute Eosinophils 0.01 Absolute Basophils 0.02 RBC Morphology See Below Anisocytosis 1+ Sodium 150 H Cancelled Potassium 4.8 Cancelled Chloride 118 H Cancelled Carbon Dioxide 24.5 Cancelled Anion Gap 7.5 Cancelled BUN 31 H Cancelled Creatinine 1.5 H Cancelled Est GFR (CKD-EPI 2020) 51.03 Cancelled Glucose 110 H Cancelled Calcium 9.0 Cancelled Total Bilirubin 0.3 AST 48 H ALT 32 Alkaline Phosphatase 113 Total Protein 6.3 L Albumin 1.7 L Add-On Test Request 07/27/23 07/27/23 07/27/23 11:54 14:12 14:30 WBC RBC Hgb Hct MCV MCH MCHC RDW Plt Count MPV Immature Gran % Neutrophils % Lymphocytes % Monocytes % Eosinophils % Basophils % Nucleated RBC % Absolute Neutrophils Absolute Lymphocytes Absolute Monocytes Absolute Eosinophils Absolute Basophils RBC Morphology Anisocytosis Sodium 151 H Cancelled Potassium 4.1 Cancelled Chloride 119 H Cancelled Carbon Dioxide 22.1 Cancelled Anion Gap 9.9 Cancelled BUN 32 H Cancelled Creatinine 1.5 H Cancelled Est GFR (CKD-EPI 2020) 51.03 Cancelled Glucose 96 Cancelled Calcium 9.1 Cancelled Total Bilirubin AST ALT Alkaline Phosphatase Total Protein Albumin Add-On Test Request DONE 07/27/23 07/27/23 18:30 22:30 WBC RBC Hgb Hct MCV MCH MCHC RDW Plt Count MPV Immature Gran % Neutrophils % Lymphocytes % Monocytes % Eosinophils % Basophils % Nucleated RBC % Absolute Neutrophils Absolute Lymphocytes Absolute Monocytes Absolute Eosinophils Absolute Basophils RBC Morphology Anisocytosis Sodium Cancelled Cancelled Potassium Cancelled Cancelled Chloride Cancelled Cancelled Carbon Dioxide Cancelled Cancelled Anion Gap Cancelled Cancelled BUN Cancelled Cancelled Creatinine Cancelled Cancelled Est GFR (CKD-EPI 2020) Cancelled Cancelled Glucose Cancelled Cancelled Calcium Cancelled Cancelled Total Bilirubin AST ALT Alkaline Phosphatase Total Protein Albumin Add-On Test Request
[2023-07-27 18:15] LABS: Lab Add On Test DONE
[2023-07-27] MEDS: Normal Saline 500 ML IV (18:30)
[2023-07-27 18:58] LABS: Anion Gap 8.6 mmol/L (3-11); BUN 32 mg/dL (7-18); CO2 23.4 mmol/L (21.0-32.0); CREATININE 1.3 mg/dL (0.70-1.30); Chloride 121 mmol/L (98-107); Estimated GFR 60.59 (mL/min/1.73m2); Glucose 103 mg/dL (74-106); Potassium 3.8 mmol/L (3.5-5.1); Sodium 153 mmol/L (136-145)
[2023-07-27] MEDS: Midodrine 2.5 MG TAB 10 MG PO (20:05)
[2023-07-27 23:08] LABS: Anion Gap 9.4 mmol/L (3-11); BUN 36 mg/dL (7-18); CO2 23.6 mmol/L (21.0-32.0); CREATININE 1.3 mg/dL (0.70-1.30); Calcium 8.8 mg/dL (8.5-10.1); Chloride 122 mmol/L (98-107); Estimated GFR 60.59 (mL/min/1.73m2); Glucose 101 mg/dL (74-106); Potassium 3.7 mmol/L (3.5-5.1); Sodium 155 mmol/L (136-145)
[2023-07-27] MEDS: DEXTROSE 5%-WATER 1,000 ML 150 ML IV (23:09)
[2023-07-28] VITALS (55 sets, daily range): BP systolic 86–118; BP diastolic 48–78; PULSE 64–164; RESP 11–26; TEMP 36–37.3; O2SAT 89–93
--- NOTE | 2023-07-28 | DI.MRI_ITS ---
Exam(s) MR PELVIS WO/W EXAM: MR PELVIS WO/W CLINICAL HISTORY: sacral decubitus, r/o osteomyelitis TECHNIQUE: Multiplanar multisequence MRI of Pelvis was performed. CONTRAST MATERIAL: IV Contrast: 18 mL of Dotarem contrast administered. COMPARISON: CT CT CHEST PE ABD PELVIS W from 05/22/[address] LUMBAR SPINE SI JOINTS WO from 06/04/2023 MR MR LUMBAR SPINE WO from 06/09/2023 FINDINGS: The examination is limited due to patient motion artifact. The patient has bilateral hip prostheses causing artifact. There is a decubitus ulcer seen in the right gluteal region just lateral to the sacrum. There does a ppear to be some packing in the majority of the ulcer with an overlying bandage. In the deepest part of the ulcer adjacent to the ischium there is a 4.2 x 1.8 cm fluid collection this collection is not in capsulated to suggest an abscess. The adjacent ischium shows normal signal without enhancement f ollowing contrast administration. There is T2 hyperintense signal seen in the right sacrum at the 3r d sacral level. This area shows enhancement following contrast administration. This lies immediatel y adjacent to the decubitus ulcer. Osteomyelitis should be considered. There is otherwise normal ma rrow signal. There is a 5.5 x 3.5 cm fluid collection in the left iliacus muscle. This has been present on prior examinations. The characteristics suggest an evolving/resolving hematoma. IMPRESSION: 1. Large decubitus ulcer is seen in the right gluteal soft tissues just lateral to the sacrum. There is a small amount of fluid seen in the deep space of the ulcer. It does not appear to be in capsula itzel to suggest an abscess. 2. T2 hyperintense signal in the right cyst 3rd sacral level which shows enhancement following contra st administration. This lies immediately adjacent to the decubitus ulcer in the suspicious for osteo myelitis. 3. Bilateral total hip replacements which cause artifact in the pelvis. 4. The examination is limited due to patient motion artifact.. 5. 5.5 x 3.5 cm left iliacus muscle fluid collection is again seen most suggestive of a resolving/emily lving hematoma. DATA REPOSITORY:
[2023-07-28] MEDS: ALBUMIN HUMAN 25 GM/100 ML BTL IV ×2 (01:37→05:41)
[2023-07-28] MEDS: metroNIDAZOLE 500 MG/100 ML BAG 100 MG IVPB ×3 (03:00→17:33)
[2023-07-28] MEDS: DEXTROSE 5%-WATER 1,000 ML 150 ML IV (05:55)
[2023-07-28] MEDS: AZTREONAM 2,000 MG in Normal Saline 100 ML 200 MG IVPB ×3 (06:38→21:46)
[2023-07-28 07:00] LABS: Abs Immature Grans 0.12 10^3/uL (0.0-0.06); Absolute Basophil Count 0.04 10^3/uL (0.0-0.2); Absolute Eosinophil Count 0.02 10^3/uL (0.0-0.7); Absolute Neutrophil Count 6.85 10^3/uL (1.2-6.7); Basophils % 0.5; Eosinophils % 0.2; HCT 22.8 % (40.0-50.0); Immature Grans % 1.4; Lymphocytes % 11.9; MCH 29.6 pg (27.0-33.0); MCHC 28.9 % (32.0-36.0); MCV 102 fL (80-95); MPV 11.2 fL (8.0-11.0); Monocytes % 4.7; Neutrophils % 81.3; Nucleated RBC 0.2 % (0.0-0.3); Platelet Count 107 10^3/uL (130-400); RBC 2.23 10^6/uL (4.36-5.78); RDW 21.5 % (11.8-14.1); RDW-SD 81.4 fL; WBC 8.43 10^3/uL (4.4-10.8)
[2023-07-28 07:23] LABS: ALT 13 U/L (16-63); AST 30 U/L (15-37); Albumin 2.5 g/dL (3.4-5.0); Alkaline Phosphatase 71 U/L (46-116); BUN 36 mg/dL (7-18); Bilirubin, Total 0.3 mg/dL (0.2-1.0); CREATININE 1.3 mg/dL (0.70-1.30); Calcium 9.1 mg/dL (8.5-10.1); Chloride 121 mmol/L (98-107); Estimated GFR 60.59 (mL/min/1.73m2); Glucose 115 mg/dL (74-106); Potassium 3.3 mmol/L (3.5-5.1); Sodium 154 mmol/L (136-145); Total Protein 5.9 g/dL (6.4-8.2)
[2023-07-28 07:44] LABS: HGB 6.6 g/dL (13.5-17.5)
[2023-07-28 07:47] LABS: Diff Comment RBC Morph Reviewed
[2023-07-28 07:48] LABS: Anisocytosis 1+
[2023-07-28] MEDS: Hydrocortisone SOD SUC. 100 MG VIAL 50 MG IVP ×3 (07:57→17:33)
[2023-07-28] MEDS: Normal Saline Flush 10 ML SYR IVP ×5 (07:58→21:48)
[2023-07-28] MEDS: Fludrocortisone 0.1 MG TAB PO (07:59)
[2023-07-28] MEDS: Midodrine 2.5 MG TAB 10 MG PO ×3 (07:59→21:47)
--- NOTE | 2023-07-28 08:15 | PGE_ITS ---
Date of Service Date of service: 07/28/23 Time of Service: 07:52 Assessment and Plan Assessment and plan (1) Anemia due to GI blood loss: Status: Acute Assessment and plan: patient had precipitous drop in his Hb overnight from 8.8 gm to 6.6 gm associated w/ large green/ black melena type BM which unfortunately was not check for occult blood. We can only presume that he has had an UGI bleed. Unfortunately he was not on a PPI before this. I have instituted iv protonix and added carafate to his regimen. I am also ordering 2 units of PRBC and checking serial H&H. (2) Septic shock: Status: Acute Assessment and plan: Multiple sources of infection including recurrent urinary tract infections with Pseudomonas and E. coli with subsequent E. coli bacteremia and also possible infection source from his chronic decubitus wound. Patient was on treatment w/ Vancomycin and Cefepime when I assumed his care on Tuesday, he had 3 days of this, then I changed to Aztreonam on Monday 07/24 d/t puritic skin rash over trunk, face and arms. He still has the rash although less intense. I also added Flagyl on Monday 07/24 to improve coverage of mixed andrzej from his sacral wound. Unfortunately no repeat wound culture was obtained at the time of his debridement so I am basing coverage on mixed polymicrobial andrzej and MRSA from wound cultures in May. Urine culture this admission + for E coli and Pseudomonas, and blood culture w/ E coli. Repeat blood cultures 07/24 now now g rowth at 48 hr. Wound cultures taken yesteray, result pending but gram stain shows rare GPC, no WBC Now that he is off the N.E. drip, I will get MRI of his sacrum/pelvis looking for osteomyelitis; also needs MRI fo thoracic and cervical spine to elucidate any cause for his bedridden state. he has bilateral Babinski response. Will also check MRI brain although his encephalopathy seems to be clearing now that he is off the ativan. I will continue the midodrine and continue the hydrocortisone and fludrocortisone for another 24 hours and wean off the corticosteroids but continue the midodrine. s/p 6 days of vancomycin, now on daptomycin D#1, D#4 aztreonam, D#4 flagyl, will continue current treatment plan pending his wound cultures. he had nearly 5 days of cefepime (07/21 to 07/24) and now is starting D#4 of aztreonam. I think 10 day course for coverage of his gram negative bacteremia (E coli) and his gram negative UTI (E coli and Pseudomas) should suffice. Depending on his wound cultures and results of his MRI of his sacrum/pelvis, he may need prolonged iv antibiotics for osteomyelitis; I suspect he has MRSA in his wound given his prior cultures from May. Critical care time spent interviewing and examining the patient, reviewing studies, discussing case with patient's nurse and consulting physicians was 60 minutes (3) E. coli bacteremia: Status: Acute Assessment and plan: original blood culture 07/21 + E coli, resistant to ampicillin, amp/sulbactam but sensitive to all other antbiotics tested. received 3 1/2 days of cefepime and now on d#4 of aztreonam. Will complete 10 day course then dc aztreonam depending on wound cultures. (4) Acute metabolic encephalopathy: Status: Acute Assessment and plan: his encephalpathy seems to be clearing, however, will get MRI of brain once he is stable from his GI bleeding. (5) Complicated UTI (urinary tract infection): Status: Acute Assessment and plan: renal US did not show any obstruction or stones, SPC changed by surgery on admission (6) Sacral decubitus ulcer: Status: Resolved Assessment and plan: s/p debridement on 07/24. surgery has now signed off but have given wound dressing orders. I will discuss his wound care w/ Dr. Andrew Carpenter. I looked at the wound and it still looks very necrotic w/ black escar. I think he will need further debridement if there is any hope of treatment. Qualifiers: Pressure injury stage: stage 4 Qualified Code(s): L89.154 - Pressure ulcer of sacral region, stage 4 (7) Acute on chronic kidney failure: Status: Acute Assessment and plan: continues to improve. good urine output and creatinine has improved (currently 1.3 down from high of 3.2). 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 POCUS exam (Tuesday) shows normal LV and RV function, no RWMA, mild MR, mild TR, IVC is small and collapsable >50% w/ inspiration. therefore he could benefit from IVF fluids. I could not get adequate A4C view to perform LVOT VTI He does not appear to be in any acute CHF, flat neck veins, clear lungs; he has some peripheral edema but this is probably d/t low albumin state Subjective Subjective Interval history since last seen: Kody is more alert, he verbalizes requests. he had a large green/black BM during the night, unfortunately, this not checked for hemoccult. However his Hb dropped overnight to 6.6 gm from 8.8 gm, he had been relatively stable around 9 gm the past couple days. Isra denies any abdominal pain but has had some nausea this morning. Surprisingly he has been off his N.E. drip since 17:18 last night and BP has remained relatively stable in the 90's systolic despite the drop in his hemoglobin. I had a talke w/ Isra about his lack of iv's, the fact that he has repeatedly pulled out peripheral iv's (although this was done in a state of delirium) and the fact he needs better iv access in order to give him blood and antibiotics and iv fluids. I proposed putting in a triple lumen CVP line. However, when I explained to him the procedure and risks, he declined to have a central line placed. He did tentatively say yes when his [employer] explained to him why this was needed but when I approached him w/ the idea of the procedure, he said, I dont want that line put in me. Initially I thought that he was scared of the idea of a central line in his neck and offered alternative locations for the line but again he repeated he does not want that line placed. He is ambivalent about the blood transfusion but when faced w/ the possibility of dying, he indicated I don't want to . He will receive the transfusion but does not want a central line. We are consulting the PICC/midline team to place another peripheral line. Exam Narrative Exam Narrative: Kody is more alert and conversant this morning. he is oriented to person only Neck: no JVD Lungs: clear anteriorly, some faint rales at the bases posteriorly Heart: regular Abdomen: soft, nontender Extermities: 1+ pitting edema over lower tibia and ankles, chronic stasis dermatitis skin changes Neuro: no focal deficits, congnition seems to be improving Objective Last Vital Signs Temp 36.5 C 07/28/23 05:24 Pulse 72 07/28/23 05:24 Resp 17 07/28/23 05:24 BP 94/48 L 07/28/23 05:24 Pulse Ox 92 07/28/23 05:24 Laboratory Results - last 24 hr 07/27/23 07/27/23 07/27/23 06:30 10:30 11:54 WBC RBC Hgb Hct MCV MCH MCHC RDW Plt Count MPV Immature Gran % Neutrophils % Lymphocytes % Monocytes % Eosinophils % Basophils % Nucleated RBC % Absolute Neutrophils Absolute Lymphocytes Absolute Monocytes Absolute Eosinophils Absolute Basophils RBC Morphology Anisocytosis Sodium Cancelled Potassium Cancelled Chloride Cancelled Carbon Dioxide Cancelled Anion Gap Cancelled BUN Cancelled Creatinine Cancelled Est GFR (CKD-EPI 2020) Cancelled Glucose Cancelled Calcium Cancelled Total Bilirubin 0.3 AST 48 H ALT 32 Alkaline Phosphatase 113 Total Protein 6.3 L Albumin 1.7 L TSH Add-On Test Request DONE Crossmatch 07/27/23 07/27/23 07/27/23 14:12 14:30 18:30 WBC RBC Hgb Hct MCV MCH MCHC RDW Plt Count MPV Immature Gran % Neutrophils % Lymphocytes % Monocytes % Eosinophils % Basophils % Nucleated RBC % Absolute Neutrophils Absolute Lymphocytes Absolute Monocytes Absolute Eosinophils Absolute Basophils RBC Morphology Anisocytosis Sodium 151 H Cancelled Cancelled Potassium 4.1 Cancelled Cancelled Chloride 119 H Cancelled Cancelled Carbon Dioxide 22.1 Cancelled Cancelled Anion Gap 9.9 Cancelled Cancelled BUN 32 H Cancelled Cancelled Creatinine 1.5 H Cancelled Cancelled Est GFR (CKD-EPI 2020) 51.03 Cancelled Cancelled Glucose 96 Cancelled Cancelled Calcium 9.1 Cancelled Cancelled Total Bilirubin AST ALT Alkaline Phosphatase Total Protein Albumin TSH 0.70 Add-On Test Request Crossmatch 07/27/23 07/27/23 07/27/23 18:35 22:30 22:30 WBC RBC Hgb Hct MCV MCH MCHC RDW Plt Count MPV Immature Gran % Neutrophils % Lymphocytes % Monocytes % Eosinophils % Basophils % Nucleated RBC % Absolute Neutrophils Absolute Lymphocytes Absolute Monocytes Absolute Eosinophils Absolute Basophils RBC Morphology Anisocytosis Sodium 153 H Cancelled 155 H Potassium 3.8 Cancelled Chloride 121 H Carbon Dioxide 23.4 Anion Gap 8.6 BUN 32 H Creatinine 1.3 Est GFR (CKD-EPI 2020) 60.59 Glucose 103 Calcium 9.0 Total Bilirubin AST ALT Alkaline Phosphatase Total Protein Albumin TSH Add-On Test Request Crossmatch 07/27/23 07/27/23 07/27/23 22:30 22:30 22:30 WBC RBC Hgb Hct MCV MCH MCHC RDW Plt Count MPV Immature Gran % Neutrophils % Lymphocytes % Monocytes % Eosinophils % Basophils % Nucleated RBC % Absolute Neutrophils Absolute Lymphocytes Absolute Monocytes Absolute Eosinophils Absolute Basophils RBC Morphology Anisocytosis Sodium Potassium 3.7 Chloride Cancelled 122 H Carbon Dioxide Cancelled 23.6 Anion Gap Cancelled BUN Creatinine Est GFR (CKDEPI 2020) Glucose Calcium Total Bilirubin AST ALT Alkaline Phosphatase Total Protein Albumin TSH Add-On Test Request Crossmatch 07/27/23 07/27/23 07/27/23 22:30 22:30 22:30 WBC RBC Hgb Hct MCV MCH MCHC RDW Plt Count MPV Immature Gran % Neutrophils % Lymphocytes % Monocytes % Eosinophils % Basophils % Nucleated RBC % Absolute Neutrophils Absolute Lymphocytes Absolute Monocytes Absolute Eosinophils Absolute Basophils RBC Morphology Anisocytosis Sodium Potassium Chloride Carbon Dioxide Anion Gap 9.4 BUN Cancelled 36 H Creatinine Cancelled 1.3 Est GFR (CKD-EPI 2020) Cancelled Glucose Calcium Total Bilirubin AST ALT Alkaline Phosphatase Total Protein Albumin TSH Add-On Test Request Crossmatch 07/27/23 07/27/23 07/27/23 22:30 22:30 22:30 WBC RBC Hgb Hct MCV MCH MCHC RDW Plt Count MPV Immature Gran % Neutrophils % Lymphocytes % Monocytes % Eosinophils % Basophils % Nucleated RBC % Absolute Neutrophils Absolute Lymphocytes Absolute Monocytes Absolute Eosinophils Absolute Basophils RBC Morphology Anisocytosis Sodium Potassium Chloride Carbon Dioxide Anion Gap BUN Creatinine Est GFR (CKD-EPI 2020) 60.59 Glucose Cancelled 101 Calcium Cancelled 8.8 Total Bilirubin AST ALT Alkaline Phosphatase Total Protein Albumin TSH Add-On Test Request Crossmatch 07/27/23 07/28/23 07/28/23 Unknown 05:46 05:46 WBC 8.43 RBC 2.23 L Hgb 6.6 L* D Hct 22.8 L MCV 102 H MCH 29.6 MCHC 28.9 L RDW 21.5 H Plt Count 107 L MPV 11.2 H Immature Gran % 1.4 Neutrophils % 81.3 Lymphocytes % 11.9 Monocytes % 4.7 Eosinophils % 0.2 Basophils % 0.5 Nucleated RBC % 0.2 Absolute Neutrophils 6.85 H Absolute Lymphocytes 1.00 L Absolute Monocytes 0.40 Absolute Eosinophils 0.02 Absolute Basophils 0.04 RBC Morphology See Below Anisocytosis 1+ Sodium Cancelled 154 H Potassium Cancelled Chloride Carbon Dioxide Anion Gap BUN Creatinine Est GFR (CKD-EPI 2020) Glucose Calcium Total Bilirubin AST ALT Alkaline Phosphatase Total Protein Albumin TSH Add-On Test Request DONE Crossmatch 07/28/23 07/28/23 07/28/23 05:46 05:46 05:46 WBC RBC Hgb Hct MCV MCH MCHC RDW Plt Count MPV Immature Gran % Neutrophils % Lymphocytes % Monocytes % Eosinophils % Basophils % Nucleated RBC % Absolute Neutrophils Absolute Lymphocytes Absolute Monocytes Absolute Eosinophils Absolute Basophils RBC Morphology Anisocytosis Sodium Potassium 3.3 L Chloride Cancelled 121 H Carbon Dioxide Cancelled 24.0 Anion Gap Cancelled BUN Creatinine Est GFR (CKD-EPI 2020) Glucose Calcium Total Bilirubin AST ALT Alkaline Phosphatase Total Protein Albumin TSH Add-On Test Request Crossmatch 07/28/23 07/28/23 07/28/23 05:46 05:46 05:46 WBC RBC Hgb Hct MCV MCH MCHC RDW Plt Count MPV Immature Gran % Neutrophils % Lymphocytes % Monocytes % Eosinophils % Basophils % Nucleated RBC % Absolute Neutrophils Absolute Lymphocytes Absolute Monocytes Absolute Eosinophils Absolute Basophils RBC Morphology Anisocytosis Sodium Potassium Chloride Carbon Dioxide Anion Gap 9.0 BUN Cancelled 36 H Creatinine Cancelled 1.3 Est GFR (CKD-EPI 2020) Cancelled Glucose Calcium Total Bilirubin AST ALT Alkaline Phosphatase Total Protein Albumin TSH Add-On Test Request Crossmatch 07/28/23 07/28/23 07/28/23 05:46 05:46 05:46 WBC RBC Hgb Hct MCV MCH MCHC RDW Plt Count MPV Immature Gran % Neutrophils % Lymphocytes % Monocytes % Eosinophils % Basophils % Nucleated RBC % Absolute Neutrophils Absolute Lymphocytes Absolute Monocytes Absolute Eosinophils Absolute Basophils RBC Morphology Anisocytosis Sodium Potassium Chloride Carbon Dioxide Anion Gap BUN Creatinine Est GFR (CKD-EPI 2020) 60.59 Glucose Cancelled 115 H Calcium Cancelled 9.1 Total Bilirubin 0.3 AST 30 ALT 13 L Alkaline Phosphatase 71 Total Protein 5.9 L Albumin 2.5 L TSH Add-On Test Request Crossmatch 07/28/23 07:52 WBC RBC Hgb Hct MCV MCH MCHC RDW Plt Count MPV Immature Gran % Neutrophils % Lymphocytes % Monocytes % Eosinophils % Basophils % Nucleated RBC % Absolute Neutrophils Absolute Lymphocytes Absolute Monocytes Absolute Eosinophils Absolute Basophils RBC Morphology Anisocytosis Sodium Potassium Chloride Carbon Dioxide Anion Gap BUN Creatinine Est GFR (CKD-EPI 2020) Glucose Calcium Total Bilirubin AST ALT Alkaline Phosphatase Total Protein Albumin TSH Add-On Test Request Crossmatch See Detail Time Spent with Patient Time Spent with Patient: >50 minutes Time was spent: preparing to see the patient(eg.review tests), ordering medications,tests, procedures, referring, communicating with other health child care education coordinator, indepentently interpreting results, counseling the patient and care coordination
[2023-07-28] MEDS: DAPTOmycin 500 MG in Normal Saline 50 ML 100 MG IVPB (08:56)
[2023-07-28 08:57] LABS: Syphilis Serology (RPR) Negative (Negative)
[2023-07-28] MEDS: Prochlorperazine 10 MG/2 ML VIAL 5 MG IVP (08:57)
[2023-07-28] MEDS: Pantoprazole 40 MG VIAL IVP ×2 (08:57→21:47)
--- NOTE | 2023-07-28 09:06 | PDOC.CMPRO ---
Date of service: 07/28/23 Time of Service: 09:06 Care Management Progress Note Progress Note Text Progress Note Text: S/O: Isra was lying in bed when CM met with him. He was much more awake and alert today, although still confused. Isra was able to recognize CM today and kept repeating CM's name in response to any question he was asked. He was successfully weaned off his nor-epinephrine drip and is maintaining his SBP in the 90s to 110. He is afebrile, his WBC is WNL and his creatinine has stabilized at 1.3. Isra appears to have had a GI bleed. He had a heme positive stool and his H&H dropped from 8.8/31.0 to 6.6/22.8. He will receive 2 units of blood this afternoon. A: Isra is a 68 year old man admitted on 07/22/23 with sepsis P:Anticipate Isra will return to [facility] when medically stable. He will follow up with facility providers and plan of care and transport via facility van vs EMS. CM will follow and continue to assess for discharge needs. SDOH(Care Management) Screening Will the Patient Participate in the Screening?: Unable to obtain In the past 12 months, have you had to go without electric, gas, oil or water in your home?: no Have you or anyone in your house had to go without enough food to eat?: no Has lack of transportation kept you from medical appointments or from doing things needed for daily living?: yes Has anyone in your support network made you feel unsafe for any reason?: no Health Related Social Needs Health related social needs: transportation insecurity(Z59.82)
[2023-07-28] MEDS: Potassium Chloride Liquid 20 MEQ PKT PO (09:34)
[2023-07-28] MEDS: Sucralfate 1 GM TAB PO ×3 (09:34→21:46)
[2023-07-28 10:13] LABS: HIV-1/2 Ag & Ab Screen Negative (Negative)
--- NOTE | 2023-07-28 10:45 | DI.RAD_ITS ---
Exam(s) XR LINE PLACEMENT PICC/CVA EXAM: XR LINE PLACEMENT PICC/CVA CLINICAL HISTORY: Confirm PICC placement TECHNIQUE: 2D digital imaging was performed of the chest. One image was obtained. An AP view was ob tained. COMPARISON: CR XR PORTABLE CHEST AP from 06/09/2023 FINDINGS: There is a left PICC line in place. The tip of the catheter is in good position near the junction of the superior vena cava and right atrium. MEDIASTINUM: Normal. HEART: Stable cardiomegaly. PULMONARY VASCULATURE: There is pulmonary venous congestion. LUNGS: No focal consolidating infiltrates. There is mild interstitial prominence bilaterally. PLEURAL SPACE: No pleural effusion or pneumothorax. BONE:Within normal limits for the patient's age. OTHER FINDINGS:Normal. IMPRESSION: 1. The tip of the left PICC line is in good position at the cavoatrial junction. 2. Stable cardiomegaly. 3. Pulmonary venous congestion and interstitial prominence which may reflect pulmonary edema. Please correlate clinically. DATA REPOSITORY: RADIATION DOSE DELIVERED:
[2023-07-28] MEDS: Gadoterate meglumine 20 ML SYRINGE 18 ML IVP (15:13)
--- NOTE | 2023-07-28 15:36 | PCNE_ITS ---
Date of service: 07/28/23 Time of Service: 16:46 History of Present Illness Narrative: Isra was seen for Palliative consultation. He has been seen by Palliative in the past. He is currently hospitalized with bacteremia with a large sacral ulcer. He has been confused and unable to engage in meaningful conversation. Discussed with CM. In 05/2023, 2 months ago, during hospitalization, he was able to ambulate short distances with walker. He has been a resident at [facility]. CM concerned that he has not been able to engage in conversation but note that he appears to be improving slowly. CM has worked with him during previous hospitalizations. He has always wanted to return to his apartment. When he was in the apartment in [place], he had caregivers through [facility]. He also had services. He was seen in the ICU. He is able to state his full name when questioned. He did not recall being seen by Palliative in the past. Reviewed what palliative can offer. Offered visit, he declines having discussion at this time. Discussed with DEPOSITION OPERATOR. She has been in contact with staff. She wants to have him moved to SNF near her in [place]. CM report that he will need to return to [facility] upon discharge. If they choose to move, they would need to coordinate outpatient. His sister is considering coming to [place]. Discussed with CM, he appears to be clearing mentally over the last couple of days. Palliative to check in again tomorrow to see if he is more able/willing to engage in visit. He has a COLST on file, he is a DNR/DNI Assessment and Plan Assessment and plan (1) Anemia due to GI blood loss: Status: Acute Assessment and plan: Receiving 2 units due to drop in H&H. (2) Septic shock: Status: Resolved Assessment and plan: Multiple sources of infection including recurrent urinary tract infections with Pseudomonas and E. coli with subsequent E. coli bacteremia and also possible infection source from his chronic decubitus wound. He is on IV Abx. He appears to be slowly clearing mentally. He was unable/unwilling to engage in visit today. (3) E. coli bacteremia: Status: Resolved (4) Acute metabolic encephalopathy: Status: Acute Assessment and plan: his encephalpathy seems to be clearing. Plan is to get MRI of brain once he is stable from his GI bleeding. (5) Complicated UTI (urinary tract infection): Status: Acute Assessment and plan: renal US did not show any obstruction or stones, SPC changed by surgery on admission (6) Sacral decubitus ulcer: Status: Resolved Assessment and plan: s/p debridement on 07/24. surgery has now signed off but have given wound dressing orders. Wound reportedly still looks very necrotic w/ black escar. He will likely need further debridement. Qualifiers: Pressure injury stage: stage 4 Qualified Code(s): L89.154 - Pressure ulcer of sacral region, stage 4 (7) Acute on chronic kidney failure: Status: Acute Assessment and plan: Improving. Qualifiers: Acute renal failure type: with acute tubular necrosis Chronic kidney disease stage: stage 3 (moderate) Chronic kidney disease stage 3 subtype: u nspecified whether 3a or 3b Qualified Code(s): N17.0 - Acute kidney failure with tubular necrosis; N18.30 - Chronic kidney disease, stage 3 unspecified (8) Diastolic dysfunction: (9) Palliative care encounter: Status: Acute Assessment and plan: He has been seen by Palliative in the past. He has not been able to engage in meaningful conversation as he has been very ill. He was able to state his name but declined further conversation. He appears to be clearing mentally, will f/u tomorrow if able vs next week. His sister is his HCA. He has a COLST, he is a DNR/DNI. Review of Systems Narrative: unable PFSH All Active Problems (Updated 08/04/23 @ 20:47 by Ivanna Nunez NP) Palliative care encounter (Acute) Comfort measures only status (Acute) Severe swallowing dysfunction (Acute) Dysphagia (Acute) Hypoglycemia (Acute) Protein-calorie malnutrition, moderate (Acute) At high risk for skin breakdown (Acute) GI bleed (Chronic) COPD (chronic obstructive pulmonary disease) (Chronic) Stage IV pressure ulcer of right buttock (Acute) Sacral osteomyelitis (Acute) Hypomagnesemia (Acute) Anemia due to GI blood loss (Acute) Babinski reflex (Acute) Acute metabolic encephalopathy (Acute) Complicated UTI (urinary tract infection) (Acute) Abnormal urine color (Acute) Hyperkalemia (Acute) Acute on chronic kidney failure (Acute) HCAP (healthcare-associated pneumonia) (Acute) Atopic dermatitis (Acute) Pulmonary embolism (Chronic) Cellulitis (Acute) Cervical spondylosis without myelopathy (Acute) Perineal ulcer (Acute) Cervical spine arthritis (Acute) Cervical radicular pain (Acute) Viral conjunctivitis of both eyes (Acute) Hypoadrenergic postural hypotension (Acute) Dyspnea (Acute) Conductive hearing loss, bilateral (Acute) Chronic serous otitis media, bilateral (Acute) Recurrent serous otitis media of left ear (Acute) Intertrigo (Acute) Sensorineural hearing loss, bilateral (Acute) Conductive hearing loss in right ear (Acute) Chronic serous otitis media, right ear (Acute) Nasal vestibulitis (Acute) Mixed hearing loss, bilateral (Acute) Hearing deficit (Acute) Acute serous otitis media of right ear (Acute) Onychomycosis (Acute) Chronic Nephrotic syndrome (Acute) Pancreatic lesion (Acute) Hypoattenuation seen on CT 05/09 Fluid retention (Acute) Thrombosis of right saphenous vein (Acute) Left femoral vein DVT (Acute) Anxiety and depression (Chronic) Hypertrophic toenail (Acute) Cor pulmonale (chronic) (Chronic) Incontinence of bowel (Acute) Acute kidney injury (Acute ~09/28/19) due to methotrexate therapy Weakness of both lower extremities (Acute) Hyperuricemia (Acute) Paroxysmal A-fib (Acute) Dehydration (Acute) Limited code status (Acute) Pleural effusion (Acute) Abdominal lymphadenopathy (Acute) DVT (deep venous thrombosis) (Chronic) Mediastinal adenopathy (Acute) Lung mass (Acute) COPD exacerbation (Acute) Respiratory distress (Acute) Overgrown toenails (Acute) DJD (degenerative joint disease) (Chronic) Depressive disorder (Chronic) Crohn's disease (Chronic) Self Reported Venous stasis ulcer of ankle limited to breakdown of skin (Acute) Mitral regurgitation (Chronic) Lymphedema of both lower extremities (Chronic) Ischemic ulcer of right ankle, limited to breakdown of skin (Acute) Venous insufficiency of both lower extremities (Chronic) as above Left varicocele (Acute 05/09/17) Microscopic hematuria (Acute 02/03/16) Osteoarthritis of hip (Acute 12/14/12) Right hydrocele (Acute 02/04/17) Osteoarthritis of hip (Acute 01/14/14) Total hip arthroplasty by Dr. Jose Nieves 01/14/14; Ceramic head; press fit. Mitral valve prolapse (Chronic) Microscopic hematuria (Acute) Medical History Left leg weakness Hematoma Muscle weakness (generalized) Chronic kidney disease, stage 3 unspecified Urinary retention Suprapubic catheter Lymphoma 08/23/19 Aggressive B cell [place] [facility] [place] [facility] Venous stasis dermatitis of both lower extremities Pulmonary HTN Diastolic dysfunction Smoking greater than 40 pack years cont on smoking cessation 08/2019 quit smoking; quit 2019 Constipation Fall Hypotension Acute on chronic renal insufficiency Congestive heart disease (04/15/22) unspeciied HF chronicity, type Target weight 211# 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, high risk, B cell lymphoma, NOS, with extra node involvement(bone, spinal cord,pleura) 09/09/21 [place] [place] [facility] PET CT: No Active Lymphoma (Deauville score 1) Anemia Emphysema lung Right femoral vein DVT Hypotension Venous stasis ulcer of right lower leg with edema of right lower leg Cellulitis of right leg Housing problems Tobacco use disorder Alcohol dependence in remission Anxiety 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 Ulcer of right lower extremity Gastroesophageal reflux disease Osteoarthritis Hypercholesterolemia BPH (benign prostatic hyperplasia) Surgical History Total replacement of hip bilateral Tonsillectomy and adenoidectomy Repair of umbilical hernia Repair of inguinal hernia Bilateral EGD - MAC Colonoscopy - MAC Cholecystectomy (11/01/17) Extraction of cataract Family History Mother Breast cancer Hypertension Anxiety Father CHF (congestive heart failure) Maternal Aunt Diabetes Social History Smoking/Tobacco Use Status: Former Tobacco Use Quit Date: 08/23/19 Tobacco: How many years used: 50 Quit status: quit date established Smoking risk assessment performed?: Yes Alcohol Intake: former Year quit: 2007 Drug use: Never Substance use type: does not use Adopted: No Caregiver/Support person: Yes Foster care: No Household members: other Details: Self Housing: apartment Number of Children: 0 number of grandchildren: 0 Communication Needs: None Education Level: vocational Do you need help understanding health information?: Often current occupation: Disabled Pets and animals: No Sexually active: No Do you think of yourself as: straight/heterosexual Current gender identity: male What is your relationship status?: How often do you talk on the phone with friends or family?: three or more times per week How often do you get together with friends or relatives?: decline to answer Do you belong to any clubs or organized social groups?: yes Panel score (0-1 are the most socially isolated patients): 2 What type of physical activity do you participate in: other Details: Stretching - ROM - arms and wheelchair-bound Duration: 15-30 minutes/day Frequency: 3-4 times per week Yakelin/Buddhist: Mu-Ism Special yakelin needs: No Seatbelt use: always Drive intox or ride w/intox ups driver: No (Does not apply) Do you feel safe in your relationship?: Yes Additional Social history: unable to assess privately Exam Narrative Exam Narrative: Chronically ill-appearing gentleman laying in bed in no acute distress, nonlabored breathing, is awake and replied with brief answers. He is oriented to self. Results Last Vital Signs Temp 36.6 C 07/28/23 13:06 Pulse 103 H 07/28/23 13:06 Resp 26 H 07/28/23 13:06 BP 106/61 07/28/23 13:06 Pulse Ox 93 07/28/23 13:06 Labs 08/01/23 05:25 08/01/23 13:42 Labs: Laboratory Results - last 24 hr 07/26/23 07/27/23 07/27/23 16:15 14:12 18:35 WBC RBC Hgb Hct MCV MCH MCHC RDW Plt Count MPV Immature Gran % Neutrophils % Lymphocytes % Monocytes % Eosinophils % Basophils % Nucleated RBC % Absolute Neutrophils Absolute Lymphocytes Absolute Monocytes Absolute Eosinophils Absolute Basophils RBC Morphology Anisocytosis Sodium 153 H Potassium 3.8 Chloride 121 H Carbon Dioxide 23.4 Anion Gap 8.6 BUN 32 H Creatinine 1.3 Est GFR (CKD-EPI 2020) 60.59 Glucose 103 Calcium 9.0 Total Bilirubin AST ALT Alkaline Phosphatase Total Protein Albumin TSH 0.70 Cortisol 15 Add-On Test Request Patient ABO/Rh Antibody Screen Crossmatch 07/27/23 07/27/23 07/28/23 22:30 Unknown 05:46 WBC 8.43 RBC 2.23 L Hgb 6.6 L* D Hct 22.8 L MCV 102 H MCH 29.6 MCHC 28.9 L RDW 21.5 H Plt Count 107 L MPV 11.2 H Immature Gran % 1.4 Neutrophils % 81.3 Lymphocytes % 11.9 Monocytes % 4.7 Eosinophils % 0.2 Basophils % 0.5 Nucleated RBC % 0.2 Absolute Neutrophils 6.85 H Absolute Lymphocytes 1.00 L Absolute Monocytes 0.40 Absolute Eosinophils 0.02 Absolute Basophils 0.04 RBC Morphology See Below Anisocytosis 1+ Sodium 155 H Cancelled Potassium 3.7 Chloride 122 H Carbon Dioxide 23.6 Anion Gap 9.4 BUN 36 H Creatinine 1.3 Est GFR (CKD-EPI 2020) 60.59 Glucose 101 Calcium 8.8 Total Bilirubin AST ALT Alkaline Phosphatase Total Protein Albumin TSH Cortisol Add-On Test Request DONE Patient ABO/Rh Antibody Screen Crossmatch 07/28/23 07/28/23 07/28/23 05:46 05:46 05:46 WBC RBC Hgb Hct MCV MCH MCHC RDW Plt Count MPV Immature Gran % Neutrophils % Lymphocytes % Monocytes % Eosinophils % Basophils % Nucleated RBC % Absolute Neutrophils Absolute Lymphocytes Absolute Monocytes Absolute Eosinophils Absolute Basophils RBC Morphology Anisocytosis Sodium 154 H Potassium Cancelled 3.3 L Chloride Cancelled 121 H Carbon Dioxide Cancelled Anion Gap BUN Creatinine Est GFR (CKD-EPI 2020) Glucose Calcium Total Bilirubin AST ALT Alkaline Phosphatase Total Protein Albumin TSH Cortisol Add-On Test Request Patient ABO/Rh Antibody Screen Crossmatch 07/28/23 07/28/23 07/28/23 05:46 05:46 05:46 WBC RBC Hgb Hct MCV MCH MCHC RDW Plt Count MPV Immature Gran % Neutrophils % Lymphocytes % Monocytes % Eosinophils % Basophils % Nucleated RBC % Absolute Neutrophils Absolute Lymphocytes Absolute Monocytes Absolute Eosinophils Absolute Basophils RBC Morphology Anisocytosis Sodium Potassium Chloride Carbon Dioxide 24.0 Anion Gap Cancelled 9.0 BUN Cancelled 36 H Creatinine Cancelled Est GFR (CKD-EPI 2020) Glucose Calcium Total Bilirubin AST ALT Alkaline Phosphatase Total Protein Albumin TSH Cortisol Add-On Test Request Patient ABO/Rh Antibody Screen Crossmatch 07/28/23 07/28/23 07/28/23 05:46 05:46 05:46 WBC RBC Hgb Hct MCV MCH MCHC RDW Plt Count MPV Immature Gran % Neutrophils % Lymphocytes % Monocytes % Eosinophils % Basophils % Nucleated RBC % Absolute Neutrophils Absolute Lymphocytes Absolute Monocytes Absolute Eosinophils Absolute Basophils RBC Morphology Anisocytosis Sodium Potassium Chloride Carbon Dioxide Anion Gap BUN Creatinine 1.3 Est GFR (CKD-EPI 2020) Cancelled 60.59 Glucose Cancelled 115 H Calcium Cancelled Total Bilirubin AST ALT Alkaline Phosphatase Total Protein Albumin TSH Cortisol Add-On Test Request Patient ABO/Rh Antibody Screen Crossmatch 07/28/23 07/28/23 05:46 08:15 WBC RBC Hgb Hct MCV MCH MCHC RDW Plt Count MPV Immature Gran % Neutrophils % Lymphocytes % Monocytes % Eosinophils % Basophils % Nucleated RBC % Absolute Neutrophils Absolute Lymphocytes Absolute Monocytes Absolute Eosinophils Absolute Basophils RBC Morphology Anisocytosis Sodium Potassium Chloride Carbon Dioxide Anion Gap BUN Creatinine Est GFR (CKD-EPI 2020) Glucose Calcium 9.1 Total Bilirubin 0.3 AST 30 ALT 13 L Alkaline Phosphatase 71 Total Protein 5.9 L Albumin 2.5 L TSH Cortisol Add-On Test Request Patient ABO/Rh B Positive Antibody Screen NEGATIVE Crossmatch See Detail
[2023-07-28 17:49] LABS: HCT 28.7 % (40.0-50.0); HGB 8.6 g/dL (13.5-17.5)
[2023-07-28] MEDS: Acetaminophen 325 MG TAB PO (21:47)
[2023-07-29] VITALS (51 sets, daily range): BP systolic 89–122; BP diastolic 45–91; PULSE 59–107; RESP 16–28; TEMP 36–36.6; O2SAT 81–95
--- NOTE | 2023-07-29 | DI.MRI_ITS ---
Exam(s) MR THORACIC SPINE WO/W EXAM: MR THORACIC SPINE WO/W CLINICAL HISTORY: bilateral leg weakness, + Babinski TECHNIQUE: Multiplanar multisequence MRI of the thoracic spine was performed with both pre and post contrast infused sequences. IV contrast injected = Dotarem 18 mL COMPARISON: MR MR CERVICAL SPINE WO from 01/25/[address] CHEST PE ABD PELVIS W from 05/22/2023 FINDINGS: OSSEOUS: Scoliosis noted. There is abnormal signal abnormality in the most of the T7 vertebral body and a lesser amount within the T6 vertebral body but without height loss of these vertebral bodies. There is some enhancement in the posterior aspect of T7 vertebral body. This vertebral artery did no t appear abnormal on recent chest CT scan of 05/22/2023. There does not appear to be dehiscence of t he posterior cortex at T7 and T6 levels and there is no compromise of the canal at this level. Note significant central canal stenosis. No obvious foraminal stenosis. THORACIC SPINAL CORD: No obvious abnormal cord signal nor syringomyelia. No prominent cord compressi on. PARASPINAL TISSUES: Small bilateral pleural effusions are noted. IMPRESSION: 1. Severely limited study due to the amount of motion artifact here. 2. Abnormal signal in T7 and T6 vertebral bodies without evidence of fractures of these vertebral bod ies nor bone dehiscence. No obvious canal compromise at these levels. No obvious compromise of the spinal cord, realized limitations of the study. 3. Recommend follow-up CT scan of the thoracic spine. That with take less time and therefore possibl y less motion. Also help to compared to the reconstructed images of the chest CT scan of 05/22/2023. DATA REPOSITORY:
--- NOTE | 2023-07-29 | DI.MRI_ITS ---
Exam(s) MR CERVICAL SPINE WO/W EXAM: MR CERVICAL SPINE WO/W CLINICAL HISTORY: bilateral leg weakness, + Babinski TECHNIQUE: Multiplanar multisequence MRI of the cervical spine was performed with both pre and post contrast infused sequences. Contrast injected was 18 mL Dotarem. COMPARISON: No exams were available for comparison FINDINGS: There is significant motion artifact on all sequences CERVICOMEDULLARY JUNCTION: Intact with no evidence of cerebellar tonsillar ectopia. No obvious abnor mality of the odontoid process. No evidence of Chiari 1 malformation. No obvious abnormal cord enha ncement CERVICAL SPINAL CORD: On the axial images there is some increased signal in the central aspect of the spinal cord on the lower cervical images which may represent syringomyelia although this is not subs tantiated on the sagittal images and there is abundant motion artifact on all images making evaluatio n difficult. There is no obvious epidural fluid collection. OSSEOUS:There are no cervical fractures evident. No significant osseous lesions in the cervical vert ebrae. INDIVIDUAL LEVELS: C2-3: No disc herniation nor central canal stenosis. No foraminal stenosis. No prominent facet arthr opathy. C3-4: Mild disc space narrowing.No disc herniation or central canal stenosis. No abnormal enhancemen t. Left facet joint exhibits mild degenerative changes. Right facet joint exhibits infusion but no evidence of degenerative synovial cyst. Mild bilateral foraminal narrowing. C4-5: Mild disc space narrowing. Mild annular bulging without a dominant disc herniation. Central c anal dimensions are normal.Mild degenerative changes in the facet joint left-side. Effusion noted in the right facet joint but no degenerative synovial cyst. There is moderate bilateral foraminal narr owing. C5-6: Chronic advanced disc height loss. Anterior osseous lipping. Posteriorly there is no prominen t disc herniation. Right-sided Luschka joint osteophyte. May mild facet arthropathy. Foraminal charity nosis severe on the right side and more moderate on the left side. C6-7: Chronic advanced disc space narrowing. Symmetrical annular bulging without a dominant disc her niation or central canal stenosis. Both facet joints appear unremarkable. There is mild right-sided foraminal stenosis at. Minimal left-sided foraminal stenosis. C7-T1: No disc herniation nor central canal stenosis. No facet arthropathy.No foraminal stenosis. IMPRESSION: 1. Images of this study are degraded by motion artifact. 2. There is multilevel degenerative disc disease but without a dominant disc herniation nor significa nt central spinal canal stenosis. 3. There is multilevel facet arthropathy including right-sided facet joint effusions at C3-4 and C4-5 levels, not associated with degenerative synovial cysts. Multilevel foraminal stenosis ranging from mild to moderate-severe as described individually above. 4. Proper evaluation of the cervical spinal cord is difficult on these images due to the amount of m otion artifact. There is some signal abnormality in the central aspect of the cord seen on a few the axial images but probably related to artifact from motion as these are not substantiated on the sagi ttal images. DATA REPOSITORY:
--- NOTE | 2023-07-29 | DI.MRI_ITS ---
Exam(s) MR BRAIN WO/W EXAM: MR BRAIN WO/W CLINICAL HISTORY: bilateral leg weakness, + Babinski, encephalopathy TECHNIQUE: Multiplanar multisequence MRI of the brain was performed. Both noninfused and contrast i nfused sequences were performed. IV Contrast injected was 18 cc Dotarem. COMPARISON: MR MR BRAIN WO from 07/02/[address] HEAD - STROKE PROTOCOL from 07/26/2023 FINDINGS: There is motion artifact on most images of this study. CEREBRAL PARENCHYMA: No evidence of intracranial hemorrhage, mass effect nor shift of midline structu re. No extraaxial fluid collections. Ventricles are not enlarged nor shifted. There is no significant focal signal abnormality in the cerebellar hemispheres nor within the bayron, m idbrain, and thalami. There are multiple small sub cm FLAIR bright foci of signal abnormality in the [place] in supra ventricu lar white matter, not associated with hemorrhage, surrounding edema nor obvious enhancement. There i s no associated restricted diffusion on DWI. SWI: No microhemorrhages evident. There are no ring enhancing lesions in the brain. There is no abnormal meningeal enhancement. PITUITARY GLAND: No mass nor parasellar abnormality. No obvious abnormality in the cavernous sinuses. FLOW VOIDS: The expected flow void are noted. No evidence of obvious aneurysm nor obvious vascular ma lformation. PARANASAL SINUSES: Mastoid air cells are filled with fluid as are the middle ear cavities. The masto id air cells are developmentally small, as also evident on recent CT scan. Maxillary sinuses are gail ar as are the sphenoid and frontal sinuses and ethmoidal air cells. ORBITS: No obvious abnormal findings. IMPRESSION: 1. No significant acute intracranial findings on this MRI scan of the brain. 2. However, there is fluid seen in the middle ear cavities and mastoid air cells bilaterally. Mastoi d air cells are noted to be developmentally small. No fluid signal evident in the other paranasal sinuses. DATA REPOSITORY:
[2023-07-29 01:07] LABS: HCT 28.3 % (40.0-50.0); HGB 8.6 g/dL (13.5-17.5)
[2023-07-29] MEDS: Hydrocortisone SOD SUC. 100 MG VIAL 50 MG IVP ×4 (02:25→23:33)
[2023-07-29] MEDS: metroNIDAZOLE 500 MG/100 ML BAG 100 MG IVPB ×3 (02:25→17:39)
[2023-07-29] MEDS: Normal Saline Flush 10 ML SYR IVP ×6 (02:25→22:18)
[2023-07-29] MEDS: DEXTROSE 5%-WATER 1,000 ML 150 ML IV (02:33)
[2023-07-29] MEDS: AZTREONAM 2,000 MG in Normal Saline 100 ML 200 MG IVPB ×3 (05:50→22:07)
--- NOTE | 2023-07-29 06:00 | RT.EKG_ITS ---
APPROVED REPORT Exam: Resting ECG Reason for Exam: Runs of V-tach Patient Location: I HR:101 bpm ECG Measurements Heart Rate 101 AXIS ND [id number] P [id number] QRSd 113 QRS -7 QT 392 T 49 QTc 509 Conclusion Atrial fibrillation...? atrial activity Ventricular tachycardia, unsustained...sequence of 3 or more V complexes Incomplete right bundle branch block...QRSd >112, terminal axis(90,270) Low voltage, extremity and precordial leads...extremity<0.5mV, precordial<1.0mV May be aberrancy not VT
[2023-07-29 06:51] LABS: HCT 26.2 % (40.0-50.0); HGB 7.7 g/dL (13.5-17.5)
[2023-07-29 07:12] LABS: Troponin I < 50 ng/L (< or =60)
[2023-07-29 07:18] LABS: ALT 19 U/L (16-63); AST 28 U/L (15-37); Albumin 2.3 g/dL (3.4-5.0); Alkaline Phosphatase 66 U/L (46-116); BUN 35 mg/dL (7-18); Bilirubin, Total 0.4 mg/dL (0.2-1.0); CREATININE 1.3 mg/dL (0.70-1.30); Calcium 8.1 mg/dL (8.5-10.1); Chloride 108 mmol/L (98-107); Estimated GFR 60.59 (mL/min/1.73m2); Sodium 138 mmol/L (136-145); Total Protein 5.5 g/dL (6.4-8.2)
[2023-07-29 07:22] LABS: Glucose 574 mg/dL (74-106); Potassium 2.8 mmol/L (3.5-5.1)
[2023-07-29] MEDS: Sucralfate 1 GM TAB PO ×3 (08:14→22:07)
[2023-07-29] MEDS: Midodrine 2.5 MG TAB 10 MG PO ×3 (08:18→22:06)
[2023-07-29] MEDS: Fludrocortisone 0.1 MG TAB PO (08:18)
[2023-07-29] MEDS: Potassium Chloride Liquid 20 MEQ PKT PO ×3 (08:18→22:06)
[2023-07-29] MEDS: Pantoprazole 40 MG VIAL IVP ×2 (08:19→22:07)
[2023-07-29] MEDS: Insulin Aspart 300 UNITS/3 ML PEN 9 UNITS SC (08:19)
[2023-07-29 08:45] LABS: BE (Venous) -10 mmol/L (-2-3); HCO3 (Venous) 15 mmol/L (23-28); O2 Sat (Venous) 84 %; TCO2 (Venous) 15 mmol/L (24-29); pCO2 (Venous) 26 mmHg (41-51); pH (Venous) 7.37 (7.31-7.41); pO2 (Venous) 44 mmHg
[2023-07-29] MEDS: POTASSIUM CHLORIDE 10 MEQ/100 ML BAG 100 MEQ IVINF ×4 (08:53→15:57)
[2023-07-29 08:58] LABS: Magnesium 1.2 mg/dL (1.8-2.4)
--- NOTE | 2023-07-29 09:08 | PDOC.CMPRO ---
Date of service: 07/29/23 Time of Service: 09:08 Care Management Progress Note Progress Note Text Progress Note Text: S/O: Isra's blood pressure has stabilized and he remains off of the nor-epinephrine drip. His SBP has been >100 all day. He does continue to have melanotic stools, however his H&H are stable and no additional transfusions were needed. Last night Isra had some PVCs and his potassium was found to be 2.8 and was repleted. Today he went downstairs for an MRI of his cervical and thoracic spine and his brain. No acute findings were noted on the MRI of his brain however he does have significant degenerative disc disease in his cervical spine as well as foraminal narrowing. IRVING spoke on the phone with Mariluz, Isra's sister in [place], today. She is applying for an FMLA and informed IRVING she will be in [place] on Tuesday to see her brother. Per report, Isra is alert but still confused and continues to perseverate with random words and phrases. CM was unable to meet with him in person as he was off the floor for testing much of the day and underwent a wound vac placement in his room when he returned. A: Isra is a 68 year old man admitted on 07/22/23 with sepsis P:Anticipate Isra will return to [facility] when medically stable. He will follow up with facility providers and plan of care and transport via facility van vs EMS. CM will follow and continue to assess for discharge needs. SDOH(Care Management) Screening Will the Patient Participate in the Screening?: Unable to obtain In the past 12 months, have you had to go without electric, gas, oil or water in your home?: no Have you or anyone in your house had to go without enough food to eat?: no Has lack of transportation kept you from medical appointments or from doing things needed for daily living?: yes Has anyone in your support network made you feel unsafe for any reason?: no Health Related Social Needs Health related social needs: transportation insecurity(Z59.82)
[2023-07-29 09:15] LABS: Lactate 1.4 mmol/L (0.6-1.4)
--- NOTE | 2023-07-29 09:25 | W.PM.PROGNOT ---
Date of Service Date of service: 07/29/23 Time of Service: 09:25 Assessment and Plan Assessment and plan (1) Anemia due to GI blood loss: Status: Acute Assessment and plan: Patient still w/ melena stools, Hb is down again to 7.7 gm from 8.6 however he also has received a fair amount of iv fluids in treating his hypernatremia and NAZARIO. In fact he appears to be hypervolemic at this point w/ B lines in the bases of his lungs and small right pleural effusion, therefore some of this drop in his Hb is likely dilutional. I will repeat his hemoglobin this afternoon after giving lasix and if it is lower then transfuse to Hb of 8 gm. He is on carafate and bid dosing of protonix 40 mg. I have asked Dr. Carpenter to consider EGD, now that he is hemodynamically stable and off pressors (2) Septic shock: Status: Acute Assessment and plan: Multiple sources of infection including recurrent urinary tract infections with Pseudomonas and E. coli with subsequent E. coli bacteremia and also possible infection source from his chronic decubitus wound. Patient was on treatment w/ Vancomycin and Cefepime when I assumed his care on Tuesday, he had 3 days of this, then I changed to Aztreonam on Monday 07/24 d/t puritic skin rash over trunk, face and arms. He still has the rash although less intense. I also added Flagyl on Monday 07/24 to improve coverage of mixed andrzej from his sacral wound. Unfortunately no repeat wound culture was obtained at the time of his debridement so I am basing coverage on mixed polymicrobial andrzej and MRSA from wound cultures in May. Urine culture this admission + for E coli and Pseudomonas, and blood culture w/ E coli. Repeat blood cultures 07/24 now now growth at 48 hr. Wound cultures taken yesteray, result pending but gram stain shows rare GPC, no WBC Now that he is off the N.E. drip, I will get MRI of his sacrum/pelvis looking for osteomyelitis; also needs MRI fo thoracic and cervical spine to elucidate any cause for his bedridden state. he has bilateral Babinski response. Will also check MRI brain although his encephalopathy seems to be clearing now that he is off the ativan. I will continue the midodrine and continue the hydrocortisone and fludrocortisone for another 24 hours and wean off the corticosteroids but continue the midodrine. s/p 6 days of vancomycin, now on daptomycin D#2, D#5 aztreonam, D#5 flagyl, will continue current treatment plan pending his wound cultures. he had nearly 5 days of cefepime (07/21 to 07/24) and now is starting D#5 of aztreonam. I think 10 day course for coverage of his gram negative bacteremia (E coli) and his gram negative UTI (E coli and Pseudomas) should suffice. Sacral wound growing mixed gram positive organisms, prior cultures from May grew MRSA. MRI sacrum c/w osteomyelitis; continue 6 week course of daptomycin, will dc aztreonam and flagyl after today Critical care time spent interviewing and examining the patient, reviewing studies, discussing case with patient's nurse and consulting physicians was 60 minutes (3) E. coli bacteremia: Status: Acute Assessment and plan: original blood culture 07/21 + E coli, resistant to ampicillin, amp/sulbactam but sensitive to all other antbiotics tested. received 3 1/2 days of cefepime and now on d#4 of aztreonam. Will complete 10 day course today, dc aztreonam after today (4) Acute metabolic encephalopathy: Status: Acute Assessment and plan: his encephalpathy seems to be clearing, however, will get MRI w/and w/o of his brain, c spine and t-spine today per Dr. Coffman's recommendations. (5) Complicated UTI (urinary tract infection): Status: Acute Assessment and plan: renal US did not show any obstruction or stones, SPC changed by surgery on admission (6) Sacral decubitus ulcer: Status: Resolved Assessment and plan: s/p debridement on 07/24. surgery has now signed off but have given wound dressing orders. I will discuss his wound care w/ Dr. Andrew Carpenter. I looked at the wound and it still looks very necrotic w/ black escar. I think he will need further debridement if there is any hope of treatment. Qualifiers: Pressure injury stage: stage 4 Qualified Code(s): L89.154 - Pressure ulcer of sacral region, stage 4 (7) Hyperglycemia: Status: Acute Assessment and plan: secondary to aggressive replacement of hypotonic solutions to correct his hypernatremia. will give single dose of novolog this morning and have nursing monitor hourly glucose until <300, then monitor glucose AC/HS. (8) Acute on chronic kidney failure: Status: Acute Assessment and plan: continues to improve. good urine output and creatinine has improved (currently 1.3 down from high of 3.2). He has hypernatremia which still need correction and I am giving him free water via his iv fluids Qualifiers: Acute renal failure type: with acute tubular necrosis Chronic kidney disease stage: stage 3 (moderate) Chronic kidney disease stage 3 subtype: unspecified whether 3a or 3b Qualified Code(s): N17.0 - Acute kidney failure with tubular necrosis; N18.30 - Chronic kidney disease, stage 3 unspecified (9) Diastolic dysfunction: Assessment and plan: At the beginning of the week (Tuesday) I did a bedside POCUS exam of his LV filling pressures and evaluated his IVC, he appeared to need iv fluids then however since then he has become hypervolemic and now needs de-resuscitation w/ mild short term diuresis. I did not perform repeat echo but did limited lung US (note I did not put in formal order for this and did not save images to his file); he has A lines in upper lung gonzales but bilateral lower lung zones w/ B lines and small right sided pleural effusion. I will give some diuretics today and tonight and re-assess in the morning however I will also be correcting his low K and low Mg. (10) Hypokalemia: Status: Resolved Assessment and plan: will give iv and po doses and repeat labs (11) Hypomagnesemia: Status: Acute Assessment and plan: replete and monitor Subjective Subjective Interval history since last seen: Isra remains alert, oriented to self and others but per Gin from he is not back to his baseline cognition but is improving. Exam Narrative Exam Narrative: Isra is alert, responds to his name, perseverates on phrases, after I had his WILDLIFE FORENSIC GENETICIST, Nabila help me position him so I could examine him posteriorly, I told him that he got his workout this morning and he perseverated on the phrase got workout Lungs: coarse rales Heart: RRR, I did not appreciate any rub or gallop or murmur (review of his rhythm he has been in sinus w/ frequent PAC and PVC, some runs of triplets but no sustained VT; there were reports of atrial fibrillation but I do not agree Abdomen: obese, soft, nontender Extremities: 1+ to 2 pitting edema of ankles and lower tibia w/ chronic stasis skin changes, no open sores on feet or legs Buttocks: deep sacral wound w/ necrotic material; I discussed w/ Dr. Carpenter, he evaluated this yesterday, he says the blackened areas are d/t cauterization, he has recommended dressing changes Objective Last Vital Signs Temp 36.1 C L 07/29/23 04:41 Pulse 89 07/29/23 06:09 Resp 16 07/29/23 06:09 BP 106/77 07/29/23 04:41 Pulse Ox 92 07/29/23 06:09 Laboratory Results - last 24 hr 07/27/23 07/28/23 07/28/23 14:12 08:15 17:27 Hgb 8.6 L D Hct 28.7 L VBG pH VBG pCO2 VBG pO2 VBG HCO3 VBG Total CO2 VBG O2 Saturation VBG Base Excess VBG Lactate Sodium Potassium Chloride Carbon Dioxide Anion Gap BUN Creatinine Est GFR (CKD-EPI 2020) Glucose Calcium Magnesium Total Bilirubin AST ALT Alkaline Phosphatase Troponin I Total Protein Albumin MANOJ Titer Not Applicable MANOJ Titer 2 Not Applicable MANOJ Cytoplasm Pattern Not Applicable MANOJ Pattern Not Applicable MANOJ Pattern 2 Not Applicable MANOJ (Hep-2) <1:80 (Negative) MANOJ Comment Not Applicable Syphilis Serology Negative HIV 1&2 Ag/Ab, 4th Gen Negative Patient ABO/Rh B Positive Antibody Screen NEGATIVE Crossmatch See Detail 07/28/23 07/29/23 07/29/23 18:00 01:00 05:47 Hgb Cancelled 8.6 L 7.7 L Hct Cancelled 28.3 L 26.2 L VBG pH VBG pCO2 VBG pO2 VBG HCO3 VBG Total CO2 VBG O2 Saturation VBG Base Excess VBG Lactate Sodium 138 D Potassium 2.8 L* Chloride 108 H Carbon Dioxide 19.0 L Anion Gap 11.0 BUN 35 H Creatinine 1.3 Est GFR (CKD-EPI 2020) 60.59 Glucose 574 H* Calcium 8.1 L Magnesium Total Bilirubin 0.4 AST 28 ALT 19 Alkaline Phosphatase 66 Troponin I Total Protein 5.5 L Albumin 2.3 L MANOJ Titer MANOJ Titer 2 MANOJ Cytoplasm Pattern MANOJ Pattern MANOJ Pattern 2 MANOJ (Hep-2) MANOJ Comment Syphilis Serology HIV 1&2 Ag/Ab, 4th Gen Patient ABO/Rh Antibody Screen Crossmatch 07/29/23 07/29/23 07/29/23 06:17 08:35 09:08 Hgb Hct VBG pH 7.37 VBG pCO2 26 L VBG pO2 44 VBG HCO3 15 L VBG Total CO2 15 L VBG O2 Saturation 84 VBG Base Excess -10 L VBG Lactate Cancelled 1.4 Sodium Potassium Chloride Carbon Dioxide Anion Gap BUN Creatinine Est GFR (CKD-EPI 2020) Glucose Calcium Magnesium 1.2 L Total Bilirubin AST ALT Alkaline Phosphatase Troponin I < 50 Total Protein Albumin MANOJ Titer MANOJ Titer 2 MANOJ Cytoplasm Pattern MANOJ Pattern MANOJ Pattern 2 MANOJ (Hep-2) MANOJ Comment Syphilis Serology HIV 1&2 Ag/Ab, 4th Gen Patient ABO/Rh Antibody Screen Crossmatch 07/29/23 14:00 Hgb Hct VBG pH VBG pCO2 VBG pO2 VBG HCO3 VBG Total CO2 VBG O2 Saturation VBG Base Excess VBG Lactate Sodium Potassium Cancelled Chloride Carbon Dioxide Anion Gap BUN Creatinine Est GFR (CKD-EPI 2020) Glucose Calcium Magnesium Total Bilirubin AST ALT Alkaline Phosphatase Troponin I Total Protein Albumin MANOJ Titer MANOJ Titer 2 MANOJ Cytoplasm Pattern MANOJ Pattern MANOJ Pattern 2 MANOJ (Hep-2) MANOJ Comment Syphilis Serology HIV 1&2 Ag/Ab, 4th Gen Patient ABO/Rh Antibody Screen Crossmatch Reviewed Pertinent PMH: Yes Objective Narrative Objective Narrative: MRI pelvis: IMPRESSION: 1. Large decubitus ulcer is seen in the right gluteal soft tissues just lateral to the sacrum. There is a small amount of fluid seen in the deep space of the ulcer. It does not appear to be in capsulated to suggest an abscess. 2. T2 hyperintense signal in the right cyst 3rd sacral level which shows enhancement following contrast administration. This lies immediately adjacent to the decubitus ulcer in the suspicious for osteomyelitis. 3. Bilateral total hip replacements which cause artifact in the pelvis. 4. The examination is limited due to patient motion artifact.. 5. 5.5 x 3.5 cm left iliacus muscle fluid collection is again seen most suggestive of a resolving/evolving hematoma. Time Spent with Patient Time Spent with Patient: >50 minutes Time was spent: preparing to see the patient(eg.review tests), ordering medications,tests, procedures, referring, communicating with other health healthcare economics consultant, indepentently interpreting results, counseling the patient and care coordination
[2023-07-29] MEDS: DAPTOmycin 500 MG in Normal Saline 50 ML 100 MG IVPB (10:22)
[2023-07-29] MEDS: Furosemide 40 MG/4 ML VIAL IVP (10:47)
[2023-07-29] MEDS: LORazepam 2 MG/ML VIAL 1 MG IVP (11:00)
--- NOTE | 2023-07-29 11:02 | W.NUTCONSULT ---
Date of service: 07/29/23 Time of Service: 11:02 Nutritional Consult ASSESSMENT: nutrition consult received regarding low po intake. Pt recently transitioned to comfort care orders today (07/31) with multiple health issues that are unlikely to resolve and low quality of life expectation per medical documentation. PT does qualify for moderate protein-energy malnutrition with significantly reduced intake and meeting <75%of protein energy needs for the last month and fluid accumulation with 4+ edema noted. Kitchen will provide PO foods on request/as needed/desired Time Spent in Nutritional Counseling and Treatment: 15 minutes
[2023-07-29] MEDS: Gadoterate meglumine 20 ML SYRINGE 18 ML IVP (12:06)
[2023-07-29 12:48] LABS: Lab Add On Test DONE
[2023-07-29 13:06] LABS: Creatine Kinase 55 U/L (39-308)
[2023-07-29] MEDS: MAGNESIUM SULFATE 4 GM/100 ML BAG IVINF (13:09)
--- NOTE | 2023-07-29 13:40 | DI.VRAD_ITS ---
PROCEDURE INFORMATION: Exam: MR Head Without and With Contrast Exam date and time: 07/29/2023 11:11 AM Age: 68 years old Clinical indication: Other: Bilateral leg weakness, + babinski, encephalopathy TECHNIQUE: Imaging protocol: Magnetic resonance imaging of the head without and with contrast. Contrast material: DOTAREM; Contrast volume: 18 ml; Contrast route: INTRAVENOUS (IV); COMPARISON: CT HEAD - STROKE PROTOCOL 07/26/2023 12:27 PM FINDINGS: Limitations: There is motion artifact partially degrading examination. Brain: No restricted diffusion or acute infarct. There are scattered FLAIR hyperintensities in central [place] cerebral hemispheres consistent with microvascular change. No definite hemorrhage or enhancement but susceptibility weighted images and postcontrast images are significantly degraded by motion. No evidence of extra-axial fluid collection. There is moderate diffuse brain atrophy. Cerebral ventricles: No evidence of hydrocephalus. Bones/joints: Unremarkable as visualized. Paranasal sinuses: No significant amount of mucosal disease. No acute sinusitis. Mastoid air cells: There is fluid in middle ear cavities mastoids bilaterally. This shows increased FLAIR and T2 signal and therefore could be chronic proteinaceous contents and correlate clinically. Orbital cavities: Unremarkable. Soft tissues: Unremarkable as visualized. IMPRESSION: 1. Significantly degraded by motion. No acute infarct. 2. Opacification of bilateral mastoids and middle ears. Correlate clinically. Dictated and Authenticated by: Odessa Moffett MD. Ordering:[facility] [place] MD
--- NOTE | 2023-07-29 13:46 | W.ANESPRE ---
General Info Date of Service Date Performed: 07/29/23 Height: 5 ft 5 in Weight: 90.7 kg Body Mass Index (BMI): 33.3 Surgical Procedure: Operation Date: 07/22/23 14:10 Proposed Procedure Side Surgeon p I&D Decubitus Wound Right Andriy Benitez MD Operation Date: 07/25/23 09:25 Proposed Procedure Side Surgeon humberto Gillespie right gluteal abscess Andriy Benitez MD Actual Procedure Side Surgeon humberto Taylor and Rainer Right Gluteal Abscess Right Andriy Benitez MD Pre-Op Diagnosis Post-Op Diagnosis Unstageable Pressure Ulcer on right glute Unstageable Pressure Ulcer on right glute Operation Date: 07/29/23 14:25 Proposed Procedure Side Surgeon p Gastroscopy Andrew Carpenter MD s Wound VAC Buttock Andrew Carpenter MD Meds Allergies and Home Medications Allergies Allergy/AdvReac Type Severity Reaction Status Date / Time levofloxacin [From Levaquin] AdvReac Intermediate purpura Verified 07/20/23 14:38 silicone AdvReac Intermediate Hives; Rash Verified 07/20/23 14:38 Sulfa (Sulfonamide AdvReac Intermediate Itching Verified 07/20/23 14:38 Antibiotics) Seasonal Allegies Allergy Intermediate Runny nose Uncoded 07/20/23 14:38 Home Medication Medication Instructions Recorded nebulizers #1 ea 02/05/21 disposable gloves (Nitrile Exam #100 ea 10/08/21 Gloves) underpads (Bed Underpads) #40 ea 10/08/21 tiotropium 2.5 mcg-olodaterol 2.5 2 puff inhalation DAILY #4 grams 10/01/22 mcg/actuation mist for inhalation (Stiolto Respimat) torsemide 20 mg tablet 40 mg (2 x 20 mg) PO TID #540 tabs 11/01/22 miconazole nitrate 2 % topical 1 applic topical DAILY #28 grams 01/28/23 cream (Antifungal (miconazole)) calcium polycarbophil 625 mg 1,250 mg (2 x 625 mg) PO DAILY #90 02/22/23 tablet (FiberCon) tabs cholecalciferol (vitamin D3) 10 20 mcg (2 x 10 mcg (400 unit)) PO 02/22/23 mcg (400 unit) tablet DAILY #180 tabs spironolactone 25 mg tablet 25 mg PO DAILY #90 tabs 03/03/23 Pull ups #60 ea 04/05/23 ferrous sulfate 325 mg (65 mg See Rx Instructions .Route 04/21/23 iron) tablet .COMPLEX #28 tabs wedge pillow #1 ea 05/03/23 pregabalin 75 mg capsule (Lyrica) 75 mg PO BID #180 caps 05/16/23 potassium chloride 20 mEq 20 meq PO DAILY 05/24/23 tablet,extended release(part/cryst) ammonium lactate 12 % lotion 1 applic topical BID #400 grams 05/27/23 clotrimazole 1 % topical cream 1 applic topical PRN PRN #45 grams 05/27/23 vitamins A and D-white 1 applic topical PRN PRN #56 grams 05/27/23 petrolatum-lanolin topical ointment zinc oxide 20 % topical ointment 1 applic topical PRN PRN #56 grams 05/27/23 fluocinonide 0.05 % topical cream 1 applic topical BID #60 grams 06/02/23 metolazone 2.5 mg tablet 2.5 mg PO DAILY PRN Fluid overload 06/02/23 #20 tabs apixaban 5 mg tablet 10 mg (2 x 5 mg) PO BID #100 tabs 06/15/23 ascorbic acid (vitamin C) 500 mg See Rx Instructions .Route 06/16/23 tablet (Vitamin C) .COMPLEX #84 tabs docusate sodium 100 mg capsule 100 mg PO BID #60 caps 06/23/23 (Colace) Current Visit Medications: Current Medications Generic Name Dose Route Start Last Admin Trade Name Freq PRN Reason Stop Dose Admin Acetaminophen 0 mg 07/22/23 15:23 07/28/23 21:47 Acetaminophen 325 Mg Tab PO 650 mg Q4H PRN PRN Administration Dextrose 0 gm 07/29/23 10:02 Glucose Oral Gel 15 Gm/37.5 Gm Tube PO DIRECTED PRN Dextrose/Water 0 gm 07/29/23 10:02 Dextrose 50%-Water 25 Gm/50 Ml Syr IVP DIRECTED PRN Diphenhydramine HCl 25 mg 07/25/23 13:27 07/27/23 00:50 Diphenhydramine 50 Mg/Ml Vial IVP 25 mg Q6H PRN PRN Administration Docusate Sodium 100 mg 07/22/23 15:23 Docusate Sodium 100 Mg Cap PO TID PRN PRN Fludrocortisone Acetate 0.1 mg 07/26/23 16:00 07/29/23 08:18 Fludrocortisone 0.1 Mg Tab PO 0.1 mg DAILY ANIVAL Administration Furosemide 20 mg 07/29/23 16:00 Furosemide 20 Mg/2 Ml Vial IVP 07/30/23 08:01 BID@0800,1600 ANIVAL Hydrocortisone 50 mg 07/27/23 00:00 07/29/23 08:19 Hydrocortisone Sod Suc. 100 Mg Vial IVP 50 mg Q8H ANIVAL Administration Aztreonam 2,000 mg/ Sodium 100 mls @ 200 mls/hr 07/25/23 14:00 07/29/23 06:20 Chloride IVPB Infused Q8H ANIVAL Infusion Metronidazole 500 mg in 100 mls @ 100 mls/hr 07/25/23 18:00 07/29/23 09:55 Flagyl IVPB Infused Q8H ANIVAL Infusion Daptomycin 500 mg/ Sodium 50 mls @ 100 mls/hr 07/28/23 08:30 07/29/23 10:22 Chloride IVPB 100 mls/hr DAILY ANIVAL Administration Sodium Chloride 500 mls @ 0 mls/hr 07/27/23 18:48 07/27/23 18:30 Saline 500ml Bag IV 0.1 mls/hr PRN PRN Administration As Directed Magnesium Sulfate 4 gm in 100 mls @ 25 mls/hr 07/29/23 09:49 07/29/23 13:09 IVINF 07/29/23 13:48 25 mls/hr NOW ONE Administration IV Miscellaneous Supplies 1 each 07/22/23 15:23 Iv Access IV DIRECTED [facility] Insulin Aspart 0 units 07/29/23 12:00 Insulin Aspart 300 Units/3 Ml Pen SC 0800,1200,1700,2200 [facility] Protocol Lorazepam 1 mg 07/29/23 10:09 07/29/23 11:00 Lorazepam 2 Mg/Ml Vial IVP 07/29/23 23:59 1 mg ONCE PRN Administration data security consultant to MRI scan Midodrine 10 mg 07/27/23 20:00 07/29/23 08:18 Midodrine 2.5 Mg Tab PO 10 mg TID ANIVAL Administration Multi-Ingredient Supplement 1 ounce 07/29/23 14:00 Protein Nutritional Supplement 16 Gm 1 Ounce Packet PO TID ANIVAL Pantoprazole Sodium 40 mg 07/28/23 08:00 07/29/23 08:19 Pantoprazole 40 Mg Vial IVP 40 mg Q12H ANIVAL Administration Polyethylene Glycol 17 gm 07/22/23 15:23 Polyethylene Glycol 3350 17 Gm Packet PO DAILY PRN PRN Constipation Potassium Chloride 20 meq 07/29/23 08:30 07/29/23 08:18 Potassium Chloride Liquid 20 Meq Pkt PO 20 meq TID ANIVAL Administration Prochlorperazine Edisylate 5 mg 07/28/23 08:02 Prochlorperazine 10 Mg/2 Ml Vial IVP Q4H PRN PRN Sodium Chloride 0 ml 07/22/23 15:23 07/29/23 02:25 Normal Saline Flush 10 Ml Syr IVP 40 ml PRN PRN Administration Sodium Chloride 0 ml 07/22/23 20:00 07/29/23 11:01 Normal Saline Flush 10 Ml Syr IVP 10 ml BID ANIVAL Administration Sodium Chloride 0 ml 07/22/23 15:23 Normal Saline 10 Ml Vial IJ DIRECTED PRN Sodium Hypochlorite 473 ml 07/23/23 13:00 07/29/23 13:12 Dakin's Solution 0.25% 473 Ml Btl TP Not Given DAILY ANIVAL Sucralfate 1 gm 07/28/23 11:30 07/29/23 12:30 Sucralfate 1 Gm Tab PO Not Given AC & HS ANIVAL PFSH Active Problems Active Problems: Problem Status Onset Code Hypomagnesemia E83.42 Hyperglycemia R73.9 Anemia due to GI blood loss D50.0 Babinski reflex R29.2 Acute metabolic encephalopathy G93.41 Complicated UTI (urinary tract infection) N39.0 E. coli bacteremia R78.81, B96.20 Abnormal urine color R39.89 Hyperkalemia E87.5 Acute on chronic kidney failure N17.9, N18.9 Septic shock A41.9, R65.21 Pressure ulcer L89.90 Ulcer of sacral region, unstageable L98.429 Anemia D64.9 HCAP (healthcare-associated pneumonia) J18.9 Atopic dermatitis L20.9 Pulmonary embolism I26.99 Cellulitis L03.90 Cervical spondylosis without myelopathy M47.812 Perineal ulcer L98.499 Cervical spine arthritis M47.812 Cervical radicular pain M54.12 Viral conjunctivitis of both eyes B30.9 Hypoadrenergic postural hypotension E27.40, I95.1 Dyspnea R06.00 Conductive hearing loss, bilateral H90.0 Chronic serous otitis media, bilateral H65.23 Recurrent serous otitis media of left ear H65.92 Intertrigo L30.4 Sensorineural hearing loss, bilateral H90.3 Conductive hearing loss in right ear H90.11 Chronic serous otitis media, right ear H65.21 Nasal vestibulitis J34.89 Mixed hearing loss, bilateral H90.6 Hearing deficit H91.90 Acute serous otitis media of right ear H65.01 Onychomycosis B35.1 Nephrotic syndrome N04.9 Pancreatic lesion K86.9 Fluid retention R60.9 Thrombosis of right saphenous vein I82.811 Left femoral vein DVT I82.412 Anxiety and depression F41.9, F32.9 Hypertrophic toenail L60.2 Cor pulmonale (chronic) I27.81 Incontinence of bowel R15.9 Acute kidney injury ~09/28/19 N17.9 Weakness of both lower extremities R29.898 Hyperuricemia E79.0 Paroxysmal A-fib I48.0 Dehydration E86.0 Limited code status Pleural effusion J90 Abdominal lymphadenopathy R59.0 DVT (deep venous thrombosis) Mediastinal adenopathy R59.0 Lung mass R91.8 COPD exacerbation J44.1 Respiratory distress R06.03 Overgrown toenails L60.2 DJD (degenerative joint disease) M19.90 Depressive disorder F32.9 Crohn's disease K50.90 Venous stasis ulcer of ankle limited to breakdown of skin I83.003, L97.301 Mitral regurgitation I34.0 Lymphedema of both lower extremities I89.0 Ischemic ulcer of right ankle, limited to breakdown of skin Venous insufficiency of both lower extremities I87.2 Left varicocele 05/09/17 I86.1 Microscopic hematuria 02/03/16 R31.29 Osteoarthritis of hip 12/14/12 M16.9 Right hydrocele 02/04/17 N43.3 Osteoarthritis of hip 01/14/14 M16.9 Mitral valve prolapse I34.1 Microscopic hematuria R31.29 Medical History Medical History Emphysema lung Right femoral vein DVT Hypotension Venous stasis ulcer of right lower leg with edema of right lower leg Cellulitis of right leg Housing problems Tobacco use disorder Alcohol dependence in remission Anxiety 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 Ulcer of right lower extremity Gastroesophageal reflux disease Osteoarthritis Hypercholesterolemia BPH (benign prostatic hyperplasia) Surgical History Surgical History Total replacement of hip bilateral Tonsillectomy and adenoidectomy Repair of umbilical hernia Repair of inguinal hernia Bilateral EGD - MAC Colonoscopy - MAC Cholecystectomy (11/01/17) Extraction of cataract Tobacco Smoking/Tobacco Use Status: Former Tobacco Use Alcohol Alcohol Intake: former Year quit: 2007 Substance Use Substance use: Never Substance use type: does not use Vital Signs and Lab Results Vital Signs Most Recent Vital Signs in EMR: Most Recent Vital Signs Temp Pulse Resp BP Pulse Ox 36.4 C L 89 16 106/77 92 07/29/23 13:08 07/29/23 06:09 07/29/23 06:09 07/29/23 04:41 07/29/23 06:09 Point of Care Results Point of Care Results: Finger Stick Blood Glucose 77 07/29/23 13:14 Lab Results 07/31/23 05:55 07/31/23 05:55 Blood Type / Crossmatch: Patient ABO/Rh B Positive 07/28/23 Antibody Screen NEGATIVE 07/28/23 Crossmatch See Detail 07/28/23 Complete Blood Count: White Blood Count 10.29 10^3/uL (4.4-10.8) 07/31/23 05:55 Red Blood Count 2.97 10^6/uL (4.36-5.78) L 07/31/23 05:55 Hemoglobin 8.7 g/dL (13.5-17.5) L 07/31/23 05:55 Hematocrit 28.4 % (40.0-50.0) L 07/31/23 05:55 Platelet Count 124 10^3/uL (130-400) L 07/31/23 05:55 Venous Blood Lactate 1.4 mmol/L (0.6-1.4) 07/29/23 09:08 Complete Metabolic Panel: Sodium 146 mmol/L (136-145) H 07/31/23 05:55 Potassium 3.1 mmol/L (3.5-5.1) L 07/31/23 05:55 Chloride 115 mmol/L (98-107) H 07/31/23 05:55 Carbon Dioxide 22.3 mmol/L (21.0-32.0) 07/31/23 05:55 BUN 34 mg/dL (7-18) H 07/31/23 05:55 Creatinine 1.2 mg/dL (0.70-1.30) 07/31/23 05:55 Est GFR (CKD-EPI 2020) 66.70 (mL/min/1.73m2) 07/31/23 05:55 Magnesium 1.8 mg/dL (1.8-2.4) 07/31/23 05:55 Calcium 8.7 mg/dL (8.5-10.1) 07/31/23 05:55 Albumin 2.5 g/dL (3.4-5.0) L 07/31/23 05:55 Glucose 79 mg/dL (74-106) 07/31/23 05:55 Hemoglobin A1c 5.2 % (<5.7) 07/29/23 15:08 C-Reactive Protein 0.92 mg/dL (<or=0.5) H 07/30/23 05:40 Liver Function Panel: Alanine Aminotransferase (ALT/SGPT) 18 U/L (16-63) 07/31/23 05:55 Aspartate Amino Transf (AST/SGOT) 23 U/L (15-37) 07/31/23 05:55 Coagulation Panel: INR International Normalized Ratio 1.2 (0.9-1.1) H 07/26/23 12:55 Prothrombin Time 11.7 sec (9.1-11.1) H 07/26/23 12:55 Activated Partial Thromboplast Time 38.3 sec (23.6-32.8) H 07/26/23 12:55 Cardiac Panel: Troponin I < 50 ng/L (< or =60) 07/29/23 Creatine Kinase 55 U/L (39-308) 07/29/23 Arterial Blood Gas: No Data to Display Venous Blood Gas: Venous Blood pH 7.37 (7.31-7.41) 07/29/23 08:35 Venous Blood Partial Pressure O2 44 mmHg 07/29/23 08:35 Venous Blood Partial Pressure CO2 26 mmHg (41-51) L 07/29/23 08:35 Venous Blood Oxygen Saturation 84 % 07/29/23 08:35 Venous Blood HCO3 15 mmol/L (23-28) L 07/29/23 08:35 Venous Blood Base Excess -10 mmol/L (-2-3) L 07/29/23 08:35 Venous Blood Total Carbon Dioxide 15 mmol/L (24-29) L 07/29/23 08:35 Pancreas Panel: No Data to Display Thyroid Panel: Thyroid Stimulating Hormone (TSH) 0.70 uIU/mL (0.36-3.74) 07/27/23 14:12 Infectious Disease: HIV (1&2) Ag and Ab, 4th Generation Negative (Negative) 07/27/23 14:12 Syphilis Serology Negative (Negative) 07/27/23 14:12 Blood Cultures: No Data to Display Toxicology Panel: No Data to Display Imaging and Studies Imaging and Studies Study information below may be from another EMR and interpreted by another provider. Please see original notes in EMR for more complete details. EKG Summary: EKG PATIENT NAME: Isra Mao V UNIT #: [id number] ORDERING PROVIDER: Tatiana Siddiqi M.D. PRIMARY CARE PROVIDER: RENAN GARCIA DO DATE/TIME OF SERVICE: 07/22/23 1445 : 1955 PERFORMING LOCATION: ICU APPROVED REPORT Exam: Resting ECG Reason for Exam: high potassium Patient Location: E HR:63 bpm ECG Measurements Heart Rate 63 AXIS VA 179 P 47 QRSd 119 QRS -9 QT 429 T32 QTc 441 Conclusion Sinus rhythm...normal P axis, V-rate 60- 99 Incomplete right bundle branch block...QRSd >112, terminal axis(90,270) Low voltage, extremity and precordial leads...extremity<0.5mV, precordial<1.0mV low voltage, no STEM LAD, minimal changes from previous <Electronically signed by Tatiana Siddiqi M.D. in OV> E-Sign Date: 07/22/23 E-Sign Time: 1823 Echocardiogram Summary: Patient Name: Isra Mao V Unit #: [id number] Loc: DI Ordering Provider: Renan Garcia DO Status: REG [facility] Primary Care Provider: Renan Garcia DO Date of Exam: 07/06/22 Sex: M Admission Date: 07/06/22 : 1955 Age: 67 APPROVED REPORT EXAM: Comprehensive 2D, Doppler, and color-flow Echocardiogram Patient Location: Out-Patient Warranty Coordinator: Ana M Deng RDCS (AE) Indications: Worsening dyspnea on exertion, Known CHF Other Information Study Quality: Poor. Technically limited study due to body habitus, inability to position patient exam done in wheelchair. Conclusion Technically difficult and suboptimal study Left ventricle appears grossly normal in size and systolic function. No segmental wall motion abnormalities are appreciated The left atrium, right ventricle and right atrium are not well visualized No structural or hemodynamically significant valvular disease is identified Normal estimated right ventricular systolic pressure 27 mmHg Wall motion Left Ventricle The left ventricle is normal size. The overall left ventricular systolic function appears normal. There is normal left ventricular wall thickness. There is no ventricular septal defect visualized. LVEF is 55%. Right Ventricle Right ventricle is not well visualized. Right ventricular systolic function could not be assessed. The RVSP is 26.6 mmHg. Atria Left atrium is not well visualized. Right atrium is not well visualized. The interatrial septum is intact with no evidence for an atrial septal defect. Aortic Valve The aortic valve is normal in structure. Aortic valve is trileaflet. There is no aortic valvular stenosis. No aortic regurgitation is present. Mitral Valve The mitral valve is normal in structure. No evidence of mitral valve stenosis. Mild mitral regurgitation. Tricuspid Valve The tricuspid valve is normal in structure. There is no tricuspid valve stenosis. Mild tricuspid regurgitation. Pulmonic Valve The pulmonary valve is normal in structure. There is no pulmonic valvular stenosis. Trace to mild pulmonic regurgitation. Great Vessels The aortic root is normal in size. The ascending aorta is normal in size. Ascending aorta is not visualized. IVC is normal in size and collapses >50% with inspiration. Pericardium There is no pericardial effusion. Pulmonary Function Summary: Pulmonary Function Test PATIENT NAME: Isra Mao V UNIT #: [id number] ADMITTING PROVIDER: Kinga Reynolds M.D. PRIMARY CARE PROVIDER: RENAN GARCIA DO DATE OF ADMIT: 10/14/22 : 1955 Date of service: 10/14/22 Time of Service: 13:08 Pulmonary Function Test Result Indications: Emphysema Interpretation Spirometry: There is no airflow limitation. There is no significant bronchodilator response. The FVC is low. Lung Volumes: Normal lung volumes Diffusion Capacity: Decreased diffusion Airway Pressure: Normal airways resistance Impression Isolated diffusion deficit. This can occur with early ILD, emphysema or pulmonary vascular disease. Clinical Correlation therefore is recommended. Anesthesia Assessment and Plan Anesthesia History Personal History: Unknown Anesthesia History Family History: Family History Unknown Exercise Tolerance Exercise Tolerance: Metabolic Equivalents<4 Implantable Cardiac Device Does patient have a Pacemaker or an ICD?: No Airway Exam Known Difficult Airway: No Mallampati Class: 3 Mouth Opening: Narrow (< 3cm) Thyromental Distance: Greater than 3 cm Neck Range of Motion: Full ROM Neck Circumference: Thick Teeth Condition: Generalized Poor Dentition
--- NOTE | 2023-07-29 13:50 | DI.VRAD_ITS ---
PROCEDURE INFORMATION: Exam: MR Cervical Spine Without and With Contrast Exam date and time: 07/29/2023 11:11 AM Age: 68 years old Clinical indication: Other: Bilateral leg weakness, + babinski, encephalopathy TECHNIQUE: Imaging protocol: Magnetic resonance imaging of the cervical spine without and with contrast. Contrast material: DOTAREM; Contrast volume: 18 ml; Contrast route: INTRAVENOUS (IV); COMPARISON: CT HEAD CERV SPINE FACIAL WO 06/04/2023 3:00 PM FINDINGS: Bones/joints: Narrowed cervical interspaces. Diffuse endplate osteophyte formation, most marked at C5-C6 and C6-C7. Low-grade anterolisthesis of C3 on C4. Degenerative arthritis in the cervical facets. Spinal cord: Normal signal. No cord compression. No abnormal enhancement. C2-C3: No significant disc bulge or herniation. No severe spinal canal stenosis. No significant neural foraminal narrowing. C3-C4: Generalized disc bulge. Mild facet arthropathy. Small right facet effusion. Mild central canal narrowing. Moderate bilateral foraminal narrowing.. C4-C5: Generalized disc bulge. Mild to moderate bilateral facet arthropathy. Patent central canal. Severe bilateral foraminal narrowing.. C5-C6: Loss of disc height. Generalized disc bulge endplate osteophyte formation. Mild facet arthropathy. Patent central canal. Severe right and moderate left foraminal narrowing.. C6-C7: Loss of disc height. Generalized disc bulge. Circumferential endplate osteophyte formation. Normal facets. Severe right foraminal narrowing. Moderate left foraminal narrowing.. C7-T1: No significant disc bulge or herniation. No severe spinal canal stenosis. No significant neural foraminal narrowing. Soft tissues: Unremarkable. Vasculature: Expected flow voids in the vertebral arteries. Other findings: Images are severely degraded by motion. IMPRESSION: 1. Degenerative disc disease and facet arthropathy throughout the cervical spine 2. Severe foraminal narrowing bilaterally C4-C5 and on the right at C5-C6 and C6-C7 Dictated and Authenticated by: Donna Patrick MD. Ordering:LEATHA Spring MD
--- NOTE | 2023-07-29 14:03 | DI.VRAD_ITS ---
PROCEDURE INFORMATION: Exam: MR Thoracic Spine Without and With Contrast Exam date and time: 07/29/2023 11:11 AM Age: 68 years old Clinical indication: Other: Bilateral leg weakness, + babinski, encephalopathy TECHNIQUE: Imaging protocol: Magnetic resonance imaging of the thoracic spine without and with contrast. Contrast material: DOTAREM; Contrast volume: 18 ml; Contrast route: INTRAVENOUS (IV); COMPARISON: MR CERVICAL SPINE WO/W 07/29/2023 11:11 AM FINDINGS: Bones/joints: The central spinal canal and bilateral neural foramen are patent throughout the thoracic spine. Anterior endplate osteophyte formation in the thoracic spine. No fracture identified. Abnormal signal in the T6 and T7 vertebral bodies. Findings are most marked at T7 where there is diffuse reactive marrow edema and a focal, 1.2 cm enhancing focus in the posterior aspect T7. This is difficult to evaluate given the severe motion artifact. The lesion was inconspicuous on a CT chest of 05/22/2023. This is indeterminate. CT of the thoracic spine be helpful in further evaluation. Spinal cord: Normal signal. No cord compression. Soft tissues: Unremarkable. Pleural spaces: Small bilateral pleural effusions. Other findings: Thoracic curve, convex to the right. The images are degraded by motion. IMPRESSION: 1. Abnormals signal T6 and T7 vertebral bodies has a more benign appearance but is indeterminate and difficult to evaluate because of severe motion artifact. CT thoracic spine would be helpful in further evaluation 2. Central canal and neural foramen appear patent throughout the thoracic spine 3. Degenerative arthritis in the thoracic spine with anterior endplate osteophyte formation. Dictated and Authenticated by: Donna Patrick MD. Ordering:[facility] Otis Spring MD
--- NOTE | 2023-07-29 14:22 | PT.INNT ---
PT Notes Visit Reasons: Severe sepsis,sacral ulcer Per Nurse Inga, patient is having endoscopy procedure this afternoon and is not appropriate for PT at this time. Will check in with patient tomorrow morning and determine appropriateness for PT evalaution, as ordered.
[2023-07-29] MEDS: Protein Nutritional Supplement 16 GM 1 OUNCE PACKET PO ×2 (14:36→22:07)
[2023-07-29 15:27] LABS: HCT 30.6 % (40.0-50.0)
[2023-07-29 15:30] LABS: Potassium 3.7 mmol/L (3.5-5.1)
[2023-07-29] MEDS: Furosemide 20 MG/2 ML VIAL IVP (15:56)
[2023-07-29] MEDS: Acetaminophen 325 MG TAB PO (15:57)
[2023-07-29 15:58] LABS: Hemoglobin A1C 5.2 % (<5.7)
[2023-07-29 16:02] LABS: Folate 7.3 ng/mL (8.6-20.0)
[2023-07-29 16:14] LABS: Vitamin B12 1123 pg/mL (193-986)
--- NOTE | 2023-07-29 17:46 | W.PM.PROGNOT ---
Date of Service Date of service: 07/29/23 Time of Service: 18:13 Assessment and Plan Assessment and plan (1) Sacral osteomyelitis: Status: Acute Assessment and plan: 6 weeks of IV antibiotics (2) GI bleed: Status: Chronic Assessment and plan: Patient required blood night for a acute drop of hemoglobin to 7. Currently hemoglobin is 9 and hemodynamically stable. He has not required blood. Potassium was 2.7 On 12-hour IV Protonix and Carafate every 6 hours p.o. Will continue to treat clinically. Patient is a poor candidate for anesthesia. If he becomes unstable we will reconsider (3) Cor pulmonale (chronic): Status: Chronic (4) Venous insufficiency of both lower extremities: Status: Chronic (5) Paroxysmal A-fib: Status: Acute (6) Mitral regurgitation: Status: Chronic (7) Left femoral vein DVT: Status: Acute (8) Thrombosis of right saphenous vein: Status: Acute (9) Pulmonary embolism: Status: Chronic (10) Incontinence of bowel: Status: Acute (11) Acute on chronic kidney failure: Status: Acute Qualifiers: Acute renal failure type: with acute tubular necrosis Chronic kidney disease stage: stage 3 (moderate) Chronic kidney disease stage 3 subtype: unspecified whether 3a or 3b Qualified Code(s): N17.0 - Acute kidney failure with tubular necrosis; N18.30 - Chronic kidney disease, stage 3 unspecified (12) Nephrotic syndrome: Status: Acute (13) Complicated UTI (urinary tract infection): Status: Acute (14) Anemia: Status: Chronic (15) Cellulitis: Status: Acute (16) E. coli bacteremia: Status: Acute Assessment and plan: IV cubacin (17) Venous stasis ulcer of ankle limited to breakdown of skin: Status: Acute (18) Ischemic ulcer of right ankle, limited to breakdown of skin: Status: Acute (19) Weakness of both lower extremities: Status: Acute (20) Stage IV pressure ulcer of right buttock: Status: Acute Assessment and plan: - Wound VAC for healing and control of sepsis from stool IV Cubicin currently E. coli bacteremia -Undetermined neurologic disorder which prevents walking (21) Lymphedema of both lower extremities: Status: Chronic (22) Osteoarthritis of hip: Status: Acute (23) Mitral valve prolapse: Status: Chronic (24) Hypotension: (25) Diastolic dysfunction: (26) Congestive heart disease: (27) Pulmonary HTN: (28) Right femoral vein DVT: (29) Hypercholesterolemia: (30) Varicose veins of both lower extremities with complications: (31) Gastroesophageal reflux disease: (32) Chronic kidney disease, stage 3 unspecified: (33) Suprapubic catheter: (34) BPH (benign prostatic hyperplasia): (35) COPD (chronic obstructive pulmonary disease): Status: Chronic Qualifiers: COPD type: emphysema Emphysema type: centrilobular Qualified Code(s): J43.2 - Centrilobular emphysema (36) Pleural effusion: Status: Acute (37) HCAP (healthcare-associated pneumonia): Status: Acute (38) At high risk for skin breakdown: Status: Acute (39) Protein-calorie malnutrition, moderate: Status: Acute Assessment and plan: albumin 2.3 high prob of non healing of ulcer. risk of continued contamination w/ stool and further infections. This document was created with voice activated software and may contain errors. 30 mins spent with the patient today. Exam Narrative Exam Narrative: Wound VAC placed by surgical team. Osteomyelitis grossly present. Bone is soft and spongy and periosteum has broken down. Wound is clean with minimal granulation tissue and is approximately 3 x 3 x 1 inches Surrounding tissue on buttocks and posterior thighs is violaceous. It does diane. Patient should be on an air mattress and every 2 hours repositioning He is high risk for further breakdown Objective Last Vital Signs Temp 36.4 C L 07/29/23 13:08 Pulse 64 07/29/23 14:02 Resp 22 07/29/23 14:02 BP 102/77 07/29/23 14:02 Pulse Ox 89 L 07/29/23 14:02 Laboratory Results - last 24 hr 07/27/23 07/28/23 07/28/23 14:12 08:15 17:27 Hgb 8.6 L D Hct 28.7 L VBG pH VBG pCO2 VBG pO2 VBG HCO3 VBG Total CO2 VBG O2 Saturation VBG Base Excess VBG Lactate Sodium Potassium Chloride Carbon Dioxide Anion Gap BUN Creatinine Est GFR (CKD-EPI 2020) Glucose Hemoglobin A1c Calcium Magnesium Total Bilirubin AST ALT Alkaline Phosphatase Creatine Kinase Troponin I Total Protein Albumin Vitamin B12 Folate MANOJ Titer Not Applicable MANOJ Titer 2 Not Applicable MANOJ Cytoplasm Pattern Not Applicable MANOJ Pattern Not Applicable MANOJ Pattern 2 Not Applicable MANOJ (Hep-2) <1:80 (Negative) MANOJ Comment Not Applicable Add-On Test Request Crossmatch See Detail 07/28/23 07/29/23 07/29/23 18:00 01:00 05:47 Hgb Cancelled 8.6 L 7.7 L Hct Cancelled 28.3 L 26.2 L VBG pH VBG pCO2 VBG pO2 VBG HCO3 VBG Total CO2 VBG O2 Saturation VBG Base Excess VBG Lactate Sodium 138 D Potassium 2.8 L* Chloride 108 H Carbon Dioxide 19.0 L Anion Gap 11.0 BUN 35 H Creatinine 1.3 Est GFR (CKD-EPI 2020) 60.59 Glucose 574 H* Hemoglobin A1c Calcium 8.1 L Magnesium Total Bilirubin 0.4 AST 28 ALT 19 Alkaline Phosphatase 66 Creatine Kinase Troponin I Total Protein 5.5 L Albumin 2.3 L Vitamin B12 Folate MANOJ Titer MANOJ Titer 2 MANOJ Cytoplasm Pattern MANOJ Pattern MANOJ Pattern 2 MANOJ (Hep-2) MANOJ Comment Add-On Test Request Crossmatch 07/29/23 07/29/23 07/29/23 06:17 08:35 09:08 Hgb Hct VBG pH 7.37 VBG pCO2 26 L VBG pO2 44 VBG HCO3 15 L VBG Total CO2 15 L VBG O2 Saturation 84 VBG Base Excess -10 L VBG Lactate Cancelled 1.4 Sodium Potassium Chloride Carbon Dioxide Anion Gap BUN Creatinine Est GFR (CKD-EPI 2020) Glucose Hemoglobin A1c Calcium Magnesium 1.2 L Total Bilirubin AST ALT Alkaline Phosphatase Creatine Kinase 55 Troponin I < 50 Total Protein Albumin Vitamin B12 Folate MANOJ Titer MANOJ Titer 2 MANOJ Cytoplasm Pattern MANOJ Pattern MANOJ Pattern 2 MANOJ (Hep-2) MANOJ Comment Add-On Test Request Crossmatch 07/29/23 07/29/23 07/29/23 14:00 15:08 Unknown Hgb 9.0 L Hct 30.6 L VBG pH VBG pCO2 VBG pO2 VBG HCO3 VBG Total CO2 VBG O2 Saturation VBG Base Excess VBG Lactate Sodium Potassium Cancelled 3.7 Chloride Carbon Dioxide Anion Gap BUN Creatinine Est GFR (CKD-EPI 2020) Glucose Hemoglobin A1c 5.2 Calcium Magnesium Total Bilirubin AST ALT Alkaline Phosphatase Creatine Kinase Troponin I Total Protein Albumin Vitamin B12 1123 H Folate 7.3 L MANOJ Titer MANOJ Titer 2 MANOJ Cytoplasm Pattern MANOJ Pattern MANOJ Pattern 2 MANOJ (Hep-2) MANOJ Comment Add-On Test Request DONE Crossmatch Time Spent with Patient Time Spent with Patient: 35-49 minutes Time was spent: preparing to see the patient(eg.review tests), obtaining and/or reviewing separately otained hiistory, ordering medications,tests, procedures, referring, communicating with other health long term acute care registered nurse, indepentently interpreting results, counseling the patient and care coordination
[2023-07-29 18:38] LABS: HCT 30.7 % (40.0-50.0); HGB 9.4 g/dL (13.5-17.5)
[2023-07-29 18:47] LABS: Anion Gap 9.8 mmol/L (3-11); BUN 38 mg/dL (7-18); CO2 21.2 mmol/L (21.0-32.0); CREATININE 1.4 mg/dL (0.70-1.30); Calcium 9.1 mg/dL (8.5-10.1); Chloride 122 mmol/L (98-107); Estimated GFR 55.43 (mL/min/1.73m2); Glucose 134 mg/dL (74-106); Potassium 3.8 mmol/L (3.5-5.1); Sodium 153 mmol/L (136-145)
[2023-07-29] MEDS: DEXTROSE 5%-WATER 250 ML 125 ML IV (19:35)
[2023-07-29] MEDS: Insulin Aspart 300 UNITS/3 ML PEN SC (22:17)
[2023-07-30] VITALS (44 sets, daily range): BP systolic 91–122; BP diastolic 56–86; PULSE 57–97; RESP 18–26; TEMP 36–36.5; O2SAT 84–96
--- NOTE | 2023-07-30 | DI.RAD_ITS ---
Exam(s) XR PORTABLE CHEST AP EXAM: XR PORTABLE CHEST AP CLINICAL HISTORY: cough, dyspnea TECHNIQUE: 2D digital imaging was performed of the chest. One image was obtained. An AP view was ob tained. COMPARISON: CR XR LINE PLACEMENT PICC/CVA from 07/28/2023 FINDINGS: MEDIASTINUM: Normal. HEART: Cardiomegaly. PULMONARY VASCULATURE: Normal. LUNGS: Worsening pulmonary opacities bilaterally. PLEURAL SPACE: No pneumothorax. There may be a left pleural effusion. BONE:Within normal limits for the patient's age. Right convex curvature of the thoracic spine. OTHER FINDINGS:The tip of the left PICC line is in the superior vena cava in good position. IMPRESSION: Interval worsening of the bilateral pulmonary infiltrates since 07/28/2023. This may represent worsen ing edema, atelectasis or pneumonia. Please correlate clinically. DATA REPOSITORY: RADIATION DOSE DELIVERED:
[2023-07-30] MEDS: metroNIDAZOLE 500 MG/100 ML BAG 100 MG IVPB ×2 (01:07→10:30)
[2023-07-30] MEDS: Normal Saline Flush 10 ML SYR IVP ×5 (03:39→21:01)
[2023-07-30] MEDS: AZTREONAM 2,000 MG in Normal Saline 100 ML 200 MG IVPB ×2 (05:08→14:08)
[2023-07-30 05:21] LABS: Bilirubin Negative (Negative); Blood Small (Negative); Clarity Clear (Clear); Glucose Negative (Negative); Ketones Negative (Negative); Leukocyte Esterase Small (Negative); Nitrite Negative (Negative); Urobilinogen 0.2 mg/dL (Up to 0.2); pH 5.5 (5-8)
[2023-07-30 05:23] LABS: Epithelial Cells Few HPF (Negative)
[2023-07-30 05:24] LABS: Bacteria Few HPF (Negative); C & S Indicated? Yes; Casts Negative LPF (Negative); Crystals Negative HPF (Negative); Mucus Negative (Negative); Other Cells Few Yeast (Negative)
[2023-07-30 05:32] LABS: Creatinine,Urine 48.96 mg/dL; Sodium, Urine 9 mmol/L
[2023-07-30 06:19] LABS: Abs Immature Grans 0.17 10^3/uL (0.0-0.06); Absolute Basophil Count 0.02 10^3/uL (0.0-0.2); Absolute Lymphocyte Count 1.49 10^3/uL (1.2-3.4); Basophils % 0.2; HGB 8.9 g/dL (13.5-17.5); Immature Grans % 1.4; Lymphocytes % 12.5; MCH 29.9 pg (27.0-33.0); MCHC 30.7 % (32.0-36.0); MPV 11.5 fL (8.0-11.0); Monocytes % 3.9; Nucleated RBC 0.4 % (0.0-0.3); Platelet Count 130 10^3/uL (130-400); RBC 2.98 10^6/uL (4.36-5.78); RDW 24.8 % (11.8-14.1)
[2023-07-30 06:40] LABS: Absolute Monocyte Count 0.46 10^3/uL (0.1-0.8); Absolute Neutrophil Count 9.76 10^3/uL (1.2-6.7)
[2023-07-30 06:46] LABS: MCV 97 fL (80-95)
[2023-07-30 06:47] LABS: Anisocytosis 1+; Hypochromasia 1+
[2023-07-30 07:08] LABS: ALT 15 U/L (16-63); AST 20 U/L (15-37); Albumin 1.8 g/dL (3.4-5.0); Alkaline Phosphatase 59 U/L (46-116); Anion Gap 11.1 mmol/L (3-11); BUN 35 mg/dL (7-18); Bilirubin, Total 0.3 mg/dL (0.2-1.0); CO2 14.9 mmol/L (21.0-32.0); Calcium 6.6 mg/dL (8.5-10.1); Chloride 130 mmol/L (98-107); Estimated GFR 83.01 (mL/min/1.73m2); Ferritin 952 ng/mL (26-388); Glucose 81 mg/dL (74-106); Magnesium 1.6 mg/dL (1.8-2.4); Total Protein 4.5 g/dL (6.4-8.2)
[2023-07-30 07:15] LABS: Sodium 156 mmol/L (136-145)
[2023-07-30 07:25] LABS: C-Reactive Protein 0.92 mg/dL (<or=0.5)
[2023-07-30 08:30] LABS: Anion Gap 10.2 mmol/L (3-11); BUN 44 mg/dL (7-18); CO2 20.8 mmol/L (21.0-32.0); CREATININE 1.4 mg/dL (0.70-1.30); Chloride 126 mmol/L (98-107); Estimated GFR 55.43 (mL/min/1.73m2); Glucose 102 mg/dL (74-106); Potassium 3.9 mmol/L (3.5-5.1)
[2023-07-30 08:31] LABS: Sodium 157 mmol/L (136-145)
[2023-07-30] MEDS: Pantoprazole 40 MG VIAL IVP ×2 (08:34→20:07)
[2023-07-30] MEDS: Potassium Chloride Liquid 20 MEQ PKT 40 MEQ PO (08:34)
[2023-07-30] MEDS: DEXTROSE 5%-WATER 1,000 ML 300 ML IV ×3 (08:34→17:13)
[2023-07-30] MEDS: Potassium Chloride Liquid 20 MEQ PKT PO ×2 (08:34→14:08)
[2023-07-30] MEDS: Midodrine 2.5 MG TAB 10 MG PO ×3 (08:35→20:07)
[2023-07-30] MEDS: Hydrocortisone SOD SUC. 100 MG VIAL 50 MG IVP ×2 (08:35→16:29)
[2023-07-30] MEDS: Fludrocortisone 0.1 MG TAB PO (08:36)
[2023-07-30] MEDS: Sucralfate 1 GM TAB PO ×3 (08:36→16:30)
[2023-07-30] MEDS: Folic Acid 1 MG TAB PO (08:36)
[2023-07-30] MEDS: Protein Nutritional Supplement 16 GM 1 OUNCE PACKET PO ×2 (08:36→14:08)
--- NOTE | 2023-07-30 08:45 | W.PM.PROGNOT ---
Date of Service Date of service: 07/30/23 Time of Service: 08:45 Assessment and Plan Assessment and plan (1) Anemia due to GI blood loss: Status: Acute Assessment and plan: no reported melena overnight. Hb 8.9 gm, essentially the same as yesterday. continue protonix and carafate but can change from iv protonix to oral to reduce the amount of iv fluids he is getting. (2) Septic shock: Status: Acute Assessment and plan: Multiple sources of infection including recurrent urinary tract infections with Pseudomonas and E. coli with subsequent E. coli bacteremia and also possible infection source from his chronic decubitus wound. Patient was on treatment w/ Vancomycin and Cefepime when I assumed his care on Tuesday, he had 3 days of this, then I changed to Aztreonam on Monday 07/24 d/t puritic skin rash over trunk, face and arms. He still has the rash although less intense. I also added Flagyl on Monday 07/24 to improve coverage of mixed andrzej from his sacral wound. Unfortunately no repeat wound culture was obtained at the time of his debridement so I am basing coverage on mixed polymicrobial andrzej and MRSA from wound cultures in May. Urine culture this admission + for E coli and Pseudomonas, and blood culture w/ E coli. Repeat blood cultures 07/24 now now growth at 48 hr. Wound cultures taken yesteray, result pending but gram stain shows rare GPC, no WBC Now that he is off the N.E. drip, I will get MRI of his sacrum/pelvis looking for osteomyelitis; also needs MRI fo thoracic and cervical spine to elucidate any cause for his bedridden state. he has bilateral Babinski response. Will also check MRI brain although his encephalopathy seems to be clearing now that he is off the ativan. I will continue the midodrine and continue the hydrocortisone and fludrocortisone for another 24 hours and wean off the corticosteroids but continue the midodrine. s/p 6 days of vancomycin, now on daptomycin D#3, D#6 aztreonam, D#6 flagyl, He now has had 11 days over coverage for gram negative bacteremia and UTI. I will dc his aztreonam and flagyl but continue w/ the daptomycin for his chronic sacral decubitus ulcer w/ osteomyelitis Sacral wound growing mixed gram positive organisms, prior cultures from May grew MRSA. MRI sacrum c/w osteomyelitis; continue 6 week course of daptomycin, will dc aztreonam and flagyl after today Critical care time spent interviewing and examining the patient, reviewing studies, discussing case with patient's nurse and consulting physicians was 45 minutes (3) E. coli bacteremia: Status: Acute Assessment and plan: he has completed 11 days of parenteral antibiotics (cefepime/aztreonam) which is sufficient and his bacteremia has cleared. I will dc both the Flagyl and the aztreonam. (4) Acute metabolic encephalopathy: Status: Acute Assessment and plan: his encephalopathy seems to be worse as his hypernatremia has worsened. I am giving him D5W but also lasix to treat the hypernatremia but avoid further hypervolemia as he now appears to be volume overloaded. (5) Complicated UTI (urinary tract infection): Status: Acute Assessment and plan: renal US did not show any obstruction or stones, SPC changed by surgery on admission (6) Sacral decubitus ulcer: Status: Resolved Assessment and plan: s/p debridement on 07/24. surgery has now signed off but have given wound dressing orders. Patient will need continued daptomycin for this. Qualifiers: Pressure injury stage: stage 4 Qualified Code(s): L89.154 - Pressure ulcer of sacral region, stage 4 (7) Hyperglycemia: Status: Acute Assessment and plan: corrected yesterday w/ insulin. now that I have had to re-institute D5W, will need to watch his glucose levels and correct w/ insulin. (8) Acute on chronic kidney failure: Status: Acute Assessment and plan: continues to improve. good urine output and creatinine has improved (currently 1.3 down from high of 3.2). He has hypernatremia which still need correction and I am giving him free water via his iv fluids Qualifiers: Acute renal failure type: with acute tubular necrosis Chronic kidney disease stage: stage 3 (moderate) Chronic kidney disease stage 3 subtype: unspecified whether 3a or 3b Qualified Code(s): N17.0 - Acute kidney failure with tubular necrosis; N18.30 - Chronic kidney disease, stage 3 unspecified (9) Diastolic dysfunction: Assessment and plan: I attempted to evaluate his LV filling pressure this morning but could not get adequate windows to get his mitral inflow velocities however clinicially he seems to be hypervolemic and his lungs have bibasilar b lines and right sided pleural effusions, wheezing, and peripheral edema. His IVC does not appear plethoric but it also does not have >50% inspiratory collapse. He is clinically hypervolemic but also hypernatremic. I will continue w/ the D5 but also give lasix. (10) Hypokalemia: Status: Resolved Assessment and plan: will give iv and po doses and repeat labs (11) Hypomagnesemia: Status: Acute Assessment and plan: replete and monitor Subjective Subjective Interval history since last seen: Kody is awake but confused, asking me if I am going to take my gun with me. His serum sodium went up to 156 last night after a dose of lasix. He is hypervolemic but hypernatremic. He sounds congested w/ audible wheezing. Exam Narrative Exam Narrative: Awake, alert but not oriented, he continues to pull at iv's Lungs: coarse diffuse wheezes and bilateral basilar rales Heart: RRR, no murmur but heart tones are masked by his wheezes Abdomen: obese, soft, nontender Extremities: trace edema in his hands and arms but 2+ edema of his lower legs, chronic venous stasis changes Neurologic: no facial asymmetry, no focal paresis of his hands and arms and feet, no dysarthric speech but he perseverates on whatever is said to him and repeats the phrases over Objective Last Vital Signs Temp 36.3 C L 07/30/23 05:59 Pulse 71 07/30/23 05:59 Resp 20 07/30/23 06:00 BP 107/85 07/30/23 05:59 Pulse Ox 91 L 07/30/23 06:00 Laboratory Results - last 24 hr 07/27/23 07/29/23 07/29/23 14:12 08:35 09:08 WBC RBC Hgb Hct MCV MCH MCHC RDW Plt Count MPV Immature Gran % Neutrophils % Lymphocytes % Monocytes % Eosinophils % Basophils % Nucleated RBC % Absolute Neutrophils Absolute Lymphocytes Absolute Monocytes Absolute Eosinophils Absolute Basophils RBC Morphology Hypochromasia Anisocytosis VBG pH 7.37 VBG pCO2 26 L VBG pO2 44 VBG HCO3 15 L VBG Total CO2 15 L VBG O2 Saturation 84 VBG Base Excess -10 L VBG Lactate Cancelled 1.4 Sodium Potassium Chloride Carbon Dioxide Anion Gap BUN Creatinine Est GFR (CKD-EPI 2020) Glucose Hemoglobin A1c Calcium Magnesium 1.2 L Ferritin Total Bilirubin AST ALT Alkaline Phosphatase Creatine Kinase 55 C-Reactive Protein Total Protein Albumin Vitamin B12 Folate Urine Color Urine Clarity Urine pH Ur Specific [place] Urine Protein Urine Ketones Urine Blood Urine Nitrite Urine Bilirubin Urine Urobilinogen Ur Leukocyte Esterase Urine RBC Urine WBC Ur Epithelial Cells Urine Crystals Urine Bacteria Urine Casts Urine Mucus Urine Other Ur Culture Indicated? Ur Random Creatinine Ur Random Sodium Urine Glucose MANOJ Titer Not Applicable MANOJ Titer 2 Not Applicable MANOJ Cytoplasm Pattern Not Applicable MANOJ Pattern Not Applicable MANOJ Pattern 2 Not Applicable MANOJ (Hep-2) <1:80 (Negative) MANOJ Comment Not Applicable Add-On Test Request 07/29/23 07/29/23 07/29/23 15:08 18:30 Unknown WBC RBC Hgb 9.0 L 9.4 L Hct 30.6 L 30.7 L MCV MCH MCHC RDW Plt Count MPV Immature Gran % Neutrophils % Lymphocytes % Monocytes % Eosinophils % Basophils % Nucleated RBC % Absolute Neutrophils Absolute Lymphocytes Absolute Monocytes Absolute Eosinophils Absolute Basophils RBC Morphology Hypochromasia Anisocytosis VBG pH VBG pCO2 VBG pO2 VBG HCO3 VBG Total CO2 VBG O2 Saturation VBG Base Excess VBG Lactate Sodium 153 H D Potassium 3.7 3.8 Chloride 122 H Carbon Dioxide 21.2 Anion Gap 9.8 BUN 38 H Creatinine 1.4 H Est GFR (CKD-EPI 2020) 55.43 Glucose 134 H Hemoglobin A1c 5.2 Calcium 9.1 Magnesium Ferritin Total Bilirubin AST ALT Alkaline Phosphatase Creatine Kinase C-Reactive Protein Total Protein Albumin Vitamin B12 1123 H Folate 7.3 L Urine Color Urine Clarity Urine pH Ur Specific [place] Urine Protein Urine Ketones Urine Blood Urine Nitrite Urine Bilirubin Urine Urobilinogen Ur Leukocyte Esterase Urine RBC Urine WBC Ur Epithelial Cells Urine Crystals Urine Bacteria Urine Casts Urine Mucus Urine Other Ur Culture Indicated? Ur Random Creatinine Ur Random Sodium Urine Glucose MANOJ Titer MANOJ Titer 2 MANOJ Cytoplasm Pattern MANOJ Pattern MANOJ Pattern 2 MANOJ (Hep-2) MANOJ Comment Add-On Test Request DONE 07/30/23 07/30/23 07/30/23 04:45 04:46 05:40 WBC 11.90 H RBC 2.98 L Hgb 8.9 L Hct 29.0 L MCV 97 H D MCH 29.9 MCHC 30.7 L RDW 24.8 H Plt Count 130 MPV 11.5 H Immature Gran % 1.4 Neutrophils % 82.0 Lymphocytes % 12.5 Monocytes % 3.9 Eosinophils % 0.0 Basophils % 0.2 Nucleated RBC % 0.4 H Absolute Neutrophils 9.76 H Absolute Lymphocytes 1.49 Absolute Monocytes 0.46 Absolute Eosinophils 0.00 Absolute Basophils 0.02 RBC Morphology See Below Hypochromasia 1+ Anisocytosis 1+ VBG pH VBG pCO2 VBG pO2 VBG HCO3 VBG Total CO2 VBG O2 Saturation VBG Base Excess VBG Lactate Sodium Cancelled Potassium Chloride Carbon Dioxide Anion Gap BUN Creatinine Est GFR (CKD-EPI 2020) Glucose Hemoglobin A1c Calcium Magnesium Ferritin Total Bilirubin AST ALT Alkaline Phosphatase Creatine Kinase C-Reactive Protein Total Protein Albumin Vitamin B12 Folate Urine Color Yellow Urine Clarity Clear Urine pH 5.5 Ur Specific [place] 1.020 Urine Protein 30 H Urine Ketones Negative Urine Blood Small H Urine Nitrite Negative Urine Bilirubin Negative Urine Urobilinogen 0.2 Ur Leukocyte Esterase Small H Urine RBC 10-20 H Urine WBC 10-20 H Ur Epithelial Cells Few Urine Crystals Negative Urine Bacteria Few Urine Casts Negative Urine Mucus Negative Urine Other Few Yeast Ur Culture Indicated? Yes Ur Random Creatinine 48.96 Ur Random Sodium 9 Urine Glucose Negative MANOJ Titer MANOJ Titer 2 MANOJ Cytoplasm Pattern MANOJ Pattern MANOJ Pattern 2 MANOJ (Hep-2) MANOJ Comment Add-On Test Request 07/30/23 07/30/23 07/30/23 05:40 05:40 05:40 WBC RBC Hgb Hct MCV MCH MCHC RDW Plt Count MPV Immature Gran % Neutrophils % Lymphocytes % Monocytes % Eosinophils % Basophils % Nucleated RBC % Absolute Neutrophils Absolute Lymphocytes Absolute Monocytes Absolute Eosinophils Absolute Basophils RBC Morphology Hypochromasia Anisocytosis VBG pH VBG pCO2 VBG pO2 VBG HCO3 VBG Total CO2 VBG O2 Saturation VBG Base Excess VBG Lactate Sodium 156 H Potassium Cancelled 3.0 L Chloride Cancelled 130 H Carbon Dioxide Cancelled Anion Gap BUN Creatinine Est GFR (CKD-EPI 2020) Glucose Hemoglobin A1c Calcium Magnesium Ferritin Total Bilirubin AST ALT Alkaline Phosphatase Creatine Kinase C-Reactive Protein Total Protein Albumin Vitamin B12 Folate Urine Color Urine Clarity Urine pH Ur Specific [place] Urine Protein Urine Ketones Urine Blood Urine Nitrite Urine Bilirubin Urine Urobilinogen Ur Leukocyte Esterase Urine RBC Urine WBC Ur Epithelial Cells Urine Crystals Urine Bacteria Urine Casts Urine Mucus Urine Other Ur Culture Indicated? Ur Random Creatinine Ur Random Sodium Urine Glucose MANOJ Titer MANOJ Titer 2 MANOJ Cytoplasm Pattern MANOJ Pattern MANOJ Pattern 2 MANOJ (Hep-2) MANOJ Comment Add-On Test Request 0407/30/23 07/30/23 05:40 05:40 05:40 WBC RBC Hgb Hct MCV MCH MCHC RDW Plt Count MPV Immature Gran % Neutrophils % Lymphocytes % Monocytes % Eosinophils % Basophils % Nucleated RBC % Absolute Neutrophils Absolute Lymphocytes Absolute Monocytes Absolute Eosinophils Absolute Basophils RBC Morphology Hypochromasia Anisocytosis VBG pH VBG pCO2 VBG pO2 VBG HCO3 VBG Total CO2 VBG O2 Saturation VBG Base Excess VBG Lactate Sodium Potassium Chloride Carbon Dioxide 14.9 L Anion Gap Cancelled 11.1 H BUN Cancelled 35 H Creatinine Cancelled Est GFR (CKD-EPI 2020) Glucose Hemoglobin A1c Calcium Magnesium Ferritin Total Bilirubin AST ALT Alkaline Phosphatase Creatine Kinase C-Reactive Protein Total Protein Albumin Vitamin B12 Folate Urine Color Urine Clarity Urine pH Ur Specific [place] Urine Protein Urine Ketones Urine Blood Urine Nitrite Urine Bilirubin Urine Urobilinogen Ur Leukocyte Esterase Urine RBC Urine WBC Ur Epithelial Cells Urine Crystals Urine Bacteria Urine Casts Urine Mucus Urine Other Ur Culture Indicated? Ur Random Creatinine Ur Random Sodium Urine Glucose MANOJ Titer MANOJ Titer 2 MANOJ Cytoplasm Pattern MANOJ Pattern MANOJ Pattern 2 MANOJ (Hep-2) MANOJ Comment Add-On Test Request 07/30/23 07/30/23 07/30/23 05:40 05:40 05:40 WBC RBC Hgb Hct MCV MCH MCHC RDW Plt Count MPV Immature Gran % Neutrophils % Lymphocytes % Monocytes % Eosinophils % Basophils % Nucleated RBC % Absolute Neutrophils Absolute Lymphocytes Absolute Monocytes Absolute Eosinophils Absolute Basophils RBC Morphology Hypochromasia Anisocytosis VBG pH VBG pCO2 VBG pO2 VBG HCO3 VBG Total CO2 VBG O2 Saturation VBG Base Excess VBG Lactate Sodium Potassium Chloride Carbon Dioxide Anion Gap BUN Creatinine 1.0 Est GFR (CKD-EPI 2020) Cancelled 83.01 Glucose Cancelled 81 Hemoglobin A1c Calcium Cancelled Magnesium Ferritin Total Bilirubin AST ALT Alkaline Phosphatase Creatine Kinase C-Reactive Protein Total Protein Albumin Vitamin B12 Folate Urine Color Urine Clarity Urine pH Ur Specific [place] Urine Protein Urine Ketones Urine Blood Urine Nitrite Urine Bilirubin Urine Urobilinogen Ur Leukocyte Esterase Urine RBC Urine WBC Ur Epithelial Cells Urine Crystals Urine Bacteria Urine Casts Urine Mucus Urine Other Ur Culture Indicated? Ur Random Creatinine Ur Random Sodium Urine Glucose MANOJ Titer MANOJ Titer 2 MANOJ Cytoplasm Pattern MANOJ Pattern MANOJ Pattern 2 MANOJ (Hep-2) MANOJ Comment Add-On Test Request 07/30/23 07/30/23 07/30/23 05:40 05:40 05:40 WBC RBC Hgb Hct MCV MCH MCHC RDW Plt Count MPV Immature Gran % Neutrophils % Lymphocytes % Monocytes % Eosinophils % Basophils % Nucleated RBC % Absolute Neutrophils Absolute Lymphocytes Absolute Monocytes Absolute Eosinophils Absolute Basophils RBC Morphology Hypochromasia Anisocytosis VBG pH VBG pCO2 VBG pO2 VBG HCO3 VBG Total CO2 VBG O2 Saturation VBG Base Excess VBG Lactate Sodium Potassium Chloride Carbon Dioxide Anion Gap BUN Creatinine Est GFR (CKD-EPI 2020) Glucose Hemoglobin A1c Calcium 6.6 L Magnesium 1.6 L Ferritin 952 H Total Bilirubin Cancelled 0.3 AST Cancelled 20 ALT Cancelled Alkaline Phosphatase Creatine Kinase C-Reactive Protein Total Protein Albumin Vitamin B12 Folate Urine Color Urine Clarity Urine pH Ur Specific [place] Urine Protein Urine Ketones Urine Blood Urine Nitrite Urine Bilirubin Urine Urobilinogen Ur Leukocyte Esterase Urine RBC Urine WBC Ur Epithelial Cells Urine Crystals Urine Bacteria Urine Casts Urine Mucus Urine Other Ur Culture Indicated? Ur Random Creatinine Ur Random Sodium Urine Glucose MANOJ Titer MANOJ Titer 2 MANOJ Cytoplasm Pattern MANOJ Pattern MANOJ Pattern 2 MANOJ (Hep-2) MANOJ Comment Add-On Test Request 07/30/23 07/30/23 07/30/23 05:40 05:40 05:40 WBC RBC Hgb Hct MCV MCH MCHC RDW Plt Count MPV Immature Gran % Neutrophils % Lymphocytes % Monocytes % Eosinophils % Basophils % Nucleated RBC % Absolute Neutrophils Absolute Lymphocytes Absolute Monocytes Absolute Eosinophils Absolute Basophils RBC Morphology Hypochromasia Anisocytosis VBG pH VBG pCO2 VBG pO2 VBG HCO3 VBG Total CO2 VBG O2 Saturation VBG Base Excess VBG Lactate Sodium Potassium Chloride Carbon Dioxide Anion Gap BUN Creatinine Est GFR (CKD-EPI 2020) Glucose Hemoglobin A1c Calcium Magnesium Ferritin Total Bilirubin AST ALT 15 L Alkaline Phosphatase Cancelled 59 Creatine Kinase C-Reactive Protein 0.92 H Total Protein Cancelled 4.5 L Albumin Cancelled Vitamin B12 Folate Urine Color Urine Clarity Urine pH Ur Specific [place] Urine Protein Urine Ketones Urine Blood Urine Nitrite Urine Bilirubin Urine Urobilinogen Ur Leukocyte Esterase Urine RBC Urine WBC Ur Epithelial Cells Urine Crystals Urine Bacteria Urine Casts Urine Mucus Urine Other Ur Culture Indicated? Ur Random Creatinine Ur Random Sodium Urine Glucose MANOJ Titer MANOJ Titer 2 MANOJ Cytoplasm Pattern MANOJ Pattern MANOJ Pattern 2 MANOJ (Hep-2) MANOJ Comment Add-On Test Request 07/30/23 07/30/23 05:40 08:13 WBC RBC Hgb Hct MCV MCH MCHC RDW Plt Count MPV Immature Gran % Neutrophils % Lymphocytes % Monocytes % Eosinophils % Basophils % Nucleated RBC % Absolute Neutrophils Absolute Lymphocytes Absolute Monocytes Absolute Eosinophils Absolute Basophils RBC Morphology Hypochromasia Anisocytosis VBG pH VBG pCO2 VBG pO2 VBG HCO3 VBG Total CO2 VBG O2 Saturation VBG Base Excess VBG Lactate Sodium 157 H* Potassium 3.9 Chloride 126 H Carbon Dioxide 20.8 L Anion Gap 10.2 BUN 44 H Creatinine 1.4 H Est GFR (CKD-EPI 2020) 55.43 Glucose 102 Hemoglobin A1c Calcium 9.0 Magnesium Ferritin Total Bilirubin AST ALT Alkaline Phosphatase Creatine Kinase C-Reactive Protein Total Protein Albumin 1.8 L Vitamin B12 Folate Urine Color Urine Clarity Urine pH Ur Specific [place] Urine Protein Urine Ketones Urine Blood Urine Nitrite Urine Bilirubin Urine Urobilinogen Ur Leukocyte Esterase Urine RBC Urine WBC Ur Epithelial Cells Urine Crystals Urine Bacteria Urine Casts Urine Mucus Urine Other Ur Culture Indicated? Ur Random Creatinine Ur Random Sodium Urine Glucose MANOJ Titer MANOJ Titer 2 MANOJ Cytoplasm Pattern MANOJ Pattern MANOJ Pattern 2 MANOJ (Hep-2) MANOJ Comment Add-On Test Request Time Spent with Patient Time Spent with Patient: 35-49 minutes Time was spent: preparing to see the patient(eg.review tests), ordering medications,tests, procedures, referring, communicating with other health hospice care transitions coordinator, indepentently interpreting results and care coordination
[2023-07-30] MEDS: DAPTOmycin 500 MG in Normal Saline 50 ML 100 MG IVPB (08:56)
[2023-07-30 10:08] LABS: Anion Gap 9.8 mmol/L (3-11); BUN 44 mg/dL (7-18); CO2 21.2 mmol/L (21.0-32.0); CREATININE 1.4 mg/dL (0.70-1.30); Chloride 124 mmol/L (98-107); Estimated GFR 55.43 (mL/min/1.73m2); Glucose 130 mg/dL (74-106); Sodium 155 mmol/L (136-145)
[2023-07-30] MEDS: Furosemide 20 MG/2 ML VIAL IVP ×3 (10:30→21:35)
[2023-07-30 12:16] LABS: Anion Gap 10.6 mmol/L (3-11); BUN 41 mg/dL (7-18); CO2 20.4 mmol/L (21.0-32.0); CREATININE 1.3 mg/dL (0.70-1.30); Calcium 8.8 mg/dL (8.5-10.1); Chloride 121 mmol/L (98-107); Estimated GFR 60.59 (mL/min/1.73m2); Glucose 159 mg/dL (74-106); Potassium 4.1 mmol/L (3.5-5.1); Sodium 152 mmol/L (136-145)
--- NOTE | 2023-07-30 12:42 | PT.INNT ---
PT Notes Visit Reasons: Severe sepsis,sacral ulcer Patient remains unable to follow instructions and participate in PT at this time. Will continue to reassess and touch base with nurse for appropriateness in PT tomorrow.
--- NOTE | 2023-07-30 12:43 | W.PM.PROGNOT ---
Date of Service Date of service: 07/30/23 Time of Service: 12:43 Assessment and Plan Assessment and plan (1) DVT (deep venous thrombosis): Status: Chronic Qualifiers: Affected thrombotic vein of extremity: unspecified vein of extremity Chronicity: chronic DVT location: lower extremity Laterality: bilateral Qualified Code(s): I82.503 - Chronic embolism and thrombosis of unspecified deep veins of lower extremity, bilateral (2) Pulmonary embolism: Status: Chronic (3) Paroxysmal A-fib: Status: Acute (4) Cor pulmonale (chronic): Status: Chronic (5) Protein-calorie malnutrition, moderate: Status: Acute (6) GI bleed: Status: Chronic (7) Sacral osteomyelitis: Status: Acute (8) 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 History is taken from nursing. He has not had any stooling in the past 24 hours. The patient is not able to eat secondary to mental status. He is not getting up from the bed. It is unknown if he has any pain. Hemoglobin is stable. Anticoagulation is being held at this time. He is being treated with Protonix IV every 12. Carafate 1 g oral solution to 6 hours. The patient is not medically stable for an EGD at this time. VAC is in place and functional patient does not appear to be having any pain from the back or any bleeding I did review the cultures with Dr. Campoverde and the patient has obvious osteo from a surgical standpoint. The periosteum has been violated and the bone is soft and readily flakes off CT of the C-spine and T-spine was nondiagnostic because of movement artifact -Sepsis most likely originated from UTI decubitus ulcers. Antibiotics started Cubicin. this then caused the encephalopathy. However if the the underlying neurological problem that has been preventing him from being able to walk or swallow is yet to be diagnosed. Wound VAC is in place and functioning. Due for dressing change on Tuesday. He is notify someone the surgical team so we can review. At time of change. We can also obtain the cultures of the wound. I did review the case with Dr. Campoverde as well. This document was created with voice activated software and may contain errors. 30 mins spent with the patient today. Objective Last Vital Signs Temp 36.3 C L 07/30/23 05:59 Pulse 73 07/30/23 11:01 Resp 21 07/30/23 11:01 BP 103/79 07/30/23 11:01 Pulse Ox 92 07/30/23 11:01 Laboratory Results - last 24 hr 07/29/23 07/29/23 07/29/23 08:35 15:08 18:30 WBC RBC Hgb 9.0 L 9.4 L Hct 30.6 L 30.7 L MCV MCH MCHC RDW Plt Count MPV Immature Gran % Neutrophils % Lymphocytes % Monocytes % Eosinophils % Basophils % Nucleated RBC % Absolute Neutrophils Absolute Lymphocytes Absolute Monocytes Absolute Eosinophils Absolute Basophils RBC Morphology Hypochromasia Anisocytosis Sodium 153 H D Potassium 3.7 3.8 Chloride 122 H Carbon Dioxide 21.2 Anion Gap 9.8 BUN 38 H Creatinine 1.4 H Est GFR (CKD-EPI 2020) 55.43 Glucose 134 H Hemoglobin A1c 5.2 Calcium 9.1 Magnesium Ferritin Total Bilirubin AST ALT Alkaline Phosphatase Creatine Kinase 55 C-Reactive Protein Total Protein Albumin Vitamin B12 1123 H Folate 7.3 L Urine Color Urine Clarity Urine pH Ur Specific [place] [employer] Urine Protein Urine Ketones Urine Blood Urine Nitrite Urine Bilirubin Urine Urobilinogen Ur Leukocyte Esterase Urine RBC Urine WBC Ur Epithelial Cells Urine Crystals Urine Bacteria Urine Casts Urine Mucus Urine Other Ur Culture Indicated? Ur Random Creatinine Ur Random Sodium Urine Glucose Add-On Test Request 07/29/23 07/30/23 07/30/23 Unknown 04:45 04:46 WBC RBC Hgb Hct MCV MCH MCHC RDW Plt Count MPV Immature Gran % Neutrophils % Lymphocytes % Monocytes % Eosinophils % Basophils % Nucleated RBC % Absolute Neutrophils Absolute Lymphocytes Absolute Monocytes Absolute Eosinophils Absolute Basophils RBC Morphology Hypochromasia Anisocytosis Sodium Potassium Chloride Carbon Dioxide Anion Gap BUN Creatinine Est GFR (CKD-EPI 2020) Glucose Hemoglobin A1c Calcium Magnesium Ferritin Total Bilirubin AST ALT Alkaline Phosphatase Creatine Kinase C-Reactive Protein Total Protein Albumin Vitamin B12 Folate Urine Color Yellow Urine Clarity Clear Urine pH 5.5 Ur Specific [place] [employer] 1.020 Urine Protein 30 H Urine Ketones Negative Urine Blood Small H Urine Nitrite Negative Urine Bilirubin Negative Urine Urobilinogen 0.2 Ur Leukocyte Esterase Small H Urine RBC 10-20 H Urine WBC 10-20 H Ur Epithelial Cells Few Urine Crystals Negative Urine Bacteria Few Urine Casts Negative Urine Mucus Negative Urine Other Few Yeast Ur Culture Indicated? Yes Ur Random Creatinine 48.96 Ur Random Sodium 9 Urine Glucose Negative Add-On Test Request DONE 07/30/23 07/30/23 07/30/23 05:40 05:40 05:40 WBC 11.90 H RBC 2.98 L Hgb 8.9 L Hct 29.0 L MCV 97 H D MCH 29.9 MCHC 30.7 L RDW 24.8 H Plt Count 130 MPV 11.5 H Immature Gran % 1.4 Neutrophils % 82.0 Lymphocytes % 12.5 Monocytes % 3.9 Eosinophils % 0.0 Basophils % 0.2 Nucleated RBC % 0.4 H Absolute Neutrophils 9.76 H Absolute Lymphocytes 1.49 Absolute Monocytes 0.46 Absolute Eosinophils 0.00 Absolute Basophils 0.02 RBC Morphology See Below Hypochromasia 1+ Anisocytosis 1+ Sodium Cancelled 156 H Potassium Cancelled 3.0 L Chloride Cancelled Carbon Dioxide Anion Gap BUN Creatinine Est GFR (CKD-EPI 2020) Glucose Hemoglobin A1c Calcium Magnesium Ferritin Total Bilirubin AST ALT Alkaline Phosphatase Creatine Kinase C-Reactive Protein Total Protein Albumin Vitamin B12 Folate Urine Color Urine Clarity Urine pH Ur Specific [place] [employer] Urine Protein Urine Ketones Urine Blood Urine Nitrite Urine Bilirubin Urine Urobilinogen Ur Leukocyte Esterase Urine RBC Urine WBC Ur Epithelial Cells Urine Crystals Urine Bacteria Urine Casts Urine Mucus Urine Other Ur Culture Indicated? Ur Random Creatinine Ur Random Sodium Urine Glucose Add-On Test Request 07/30/23 07/30/23 07/30/23 05:40 05:40 05:40 WBC RBC Hgb Hct MCV MCH MCHC RDW Plt Count MPV Immature Gran % Neutrophils % Lymphocytes % Monocytes % Eosinophils % Basophils % Nucleated RBC % Absolute Neutrophils Absolute Lymphocytes Absolute Monocytes Absolute Eosinophils Absolute Basophils RBC Morphology Hypochromasia Anisocytosis Sodium Potassium Chloride 130 H Carbon Dioxide Cancelled 14.9 L Anion Gap Cancelled 11.1 H BUN Cancelled Creatinine Est GFR (CKD-EPI 2020) Glucose Hemoglobin A1c Calcium Magnesium Ferritin Total Bilirubin AST ALT Alkaline Phosphatase Creatine Kinase C-Reactive Protein Total Protein Albumin Vitamin B12 Folate Urine Color Urine Clarity Urine pH Ur Specific [place] [employer] Urine Protein Urine Ketones Urine Blood Urine Nitrite Urine Bilirubin Urine Urobilinogen Ur Leukocyte Esterase Urine RBC Urine WBC Ur Epithelial Cells Urine Crystals Urine Bacteria Urine Casts Urine Mucus Urine Other Ur Culture Indicated? Ur Random Creatinine Ur Random Sodium Urine Glucose Add-On Test Request 07/30/23 07/30/23 07/30/23 05:40 05:40 05:40 WBC RBC Hgb Hct MCV MCH MCHC RDW Plt Count MPV Immature Gran % Neutrophils % Lymphocytes % Monocytes % Eosinophils % Basophils % Nucleated RBC % Absolute Neutrophils Absolute Lymphocytes Absolute Monocytes Absolute Eosinophils Absolute Basophils RBC Morphology Hypochromasia Anisocytosis Sodium Potassium Chloride Carbon Dioxide Anion Gap BUN 35 H Creatinine Cancelled 1.0 Est GFR (CKD-EPI 2020) Cancelled 83.01 Glucose Cancelled Hemoglobin A1c Calcium Magnesium Ferritin Total Bilirubin AST ALT Alkaline Phosphatase Creatine Kinase C-Reactive Protein Total Protein Albumin Vitamin B12 Folate Urine Color Urine Clarity Urine pH Ur Specific [place] [employer] Urine Protein Urine Ketones Urine Blood Urine Nitrite Urine Bilirubin Urine Urobilinogen Ur Leukocyte Esterase Urine RBC Urine WBC Ur Epithelial Cells Urine Crystals Urine Bacteria Urine Casts Urine Mucus Urine Other Ur Culture Indicated? Ur Random Creatinine Ur Random Sodium Urine Glucose Add-On Test Request 07/30/23 07/30/23 07/30/23 05:40 05:40 05:40 WBC RBC Hgb Hct MCV MCH MCHC RDW Plt Count MPV Immature Gran % Neutrophils % Lymphocytes % Monocytes % Eosinophils % Basophils % Nucleated RBC % Absolute Neutrophils Absolute Lymphocytes Absolute Monocytes Absolute Eosinophils Absolute Basophils RBC Morphology Hypochromasia Anisocytosis Sodium Potassium Chloride Carbon Dioxide Anion Gap BUN Creatinine Est GFR (CKD-EPI 2020) Glucose 81 Hemoglobin A1c Calcium Cancelled 6.6 L Magnesium 1.6 L Ferritin 952 H Total Bilirubin Cancelled 0.3 AST Cancelled ALT Alkaline Phosphatase Creatine Kinase C-Reactive Protein Total Protein Albumin Vitamin B12 Folate Urine Color Urine Clarity Urine pH Ur Specific [place] [employer] Urine Protein Urine Ketones Urine Blood Urine Nitrite Urine Bilirubin Urine Urobilinogen Ur Leukocyte Esterase Urine RBC Urine WBC Ur Epithelial Cells Urine Crystals Urine Bacteria Urine Casts Urine Mucus Urine Other Ur Culture Indicated? Ur Random Creatinine Ur Random Sodium Urine Glucose Add-On Test Request 07/30/23 07/30/23 07/30/23 05:40 05:40 05:40 WBC RBC Hgb Hct MCV MCH MCHC RDW Plt Count MPV Immature Gran % Neutrophils % Lymphocytes % Monocytes % Eosinophils % Basophils % Nucleated RBC % Absolute Neutrophils Absolute Lymphocytes Absolute Monocytes Absolute Eosinophils Absolute Basophils RBC Morphology Hypochromasia Anisocytosis Sodium Potassium Chloride Carbon Dioxide Anion Gap BUN Creatinine Est GFR (CKD-EPI 2020) Glucose Hemoglobin A1c Calcium Magnesium Ferritin Total Bilirubin AST 20 ALT Cancelled 15 L Alkaline Phosphatase Cancelled 59 Creatine Kinase C-Reactive Protein 0.92 H Total Protein Cancelled Albumin Vitamin B12 Folate Urine Color Urine Clarity Urine pH Ur Specific [place] [employer] Urine Protein Urine Ketones Urine Blood Urine Nitrite Urine Bilirubin Urine Urobilinogen Ur Leukocyte Esterase Urine RBC Urine WBC Ur Epithelial Cells Urine Crystals Urine Bacteria Urine Casts Urine Mucus Urine Other Ur Culture Indicated? Ur Random Creatinine Ur Random Sodium Urine Glucose Add-On Test Request 07/30/23 07/30/23 07/30/23 05:40 05:40 08:13 WBC RBC Hgb Hct MCV MCH MCHC RDW Plt Count MPV Immature Gran % Neutrophils % Lymphocytes % Monocytes % Eosinophils % Basophils % Nucleated RBC % Absolute Neutrophils Absolute Lymphocytes Absolute Monocytes Absolute Eosinophils Absolute Basophils RBC Morphology Hypochromasia Anisocytosis Sodium 157 H* Potassium 3.9 Chloride 126 H Carbon Dioxide 20.8 L Anion Gap 10.2 BUN 44 H Creatinine 1.4 H Est GFR (CKD-EPI 2020) 55.43 Glucose 102 Hemoglobin A1c Calcium 9.0 Magnesium Ferritin Total Bilirubin AST ALT Alkaline Phosphatase Creatine Kinase C-Reactive Protein Total Protein 4.5 L Albumin Cancelled 1.8 L Vitamin B12 Folate Urine Color Urine Clarity Urine pH Ur Specific [place] [employer] Urine Protein Urine Ketones Urine Blood Urine Nitrite Urine Bilirubin Urine Urobilinogen Ur Leukocyte Esterase Urine RBC Urine WBC Ur Epithelial Cells Urine Crystals Urine Bacteria Urine Casts Urine Mucus Urine Other Ur Culture Indicated? Ur Random Creatinine Ur Random Sodium Urine Glucose Add-On Test Request 07/30/23 07/30/23 09:40 11:54 WBC RBC Hgb Hct MCV MCH MCHC RDW Plt Count MPV Immature Gran % Neutrophils % Lymphocytes % Monocytes % Eosinophils % Basophils % Nucleated RBC % Absolute Neutrophils Absolute Lymphocytes Absolute Monocytes Absolute Eosinophils Absolute Basophils RBC Morphology Hypochromasia Anisocytosis Sodium 155 H 152 H Potassium 4.0 4.1 Chloride 124 H 121 H Carbon Dioxide 21.2 20.4 L Anion Gap 9.8 10.6 BUN 44 H 41 H Creatinine 1.4 H 1.3 Est GFR (CKD-EPI 2020) 55.43 60.59 Glucose 130 H 159 H Hemoglobin A1c Calcium 9.0 8.8 Magnesium Ferritin Total Bilirubin AST ALT Alkaline Phosphatase Creatine Kinase C-Reactive Protein Total Protein Albumin Vitamin B12 Folate Urine Color Urine Clarity Urine pH Ur Specific [place] [employer] Urine Protein Urine Ketones Urine Blood Urine Nitrite Urine Bilirubin Urine Urobilinogen Ur Leukocyte Esterase Urine RBC Urine WBC Ur Epithelial Cells Urine Crystals Urine Bacteria Urine Casts Urine Mucus Urine Other Ur Culture Indicated? Ur Random Creatinine Ur Random Sodium Urine Glucose Add-On Test Request Time Spent with Patient Time Spent with Patient: 25-34 minutes Time was spent: preparing to see the patient(eg.review tests), obtaining and/or reviewing separately otained hiistory, ordering medications,tests, procedures, referring, communicating with other health care support representative, indepentently interpreting results and care coordination
[2023-07-30 14:19] LABS: Anion Gap 8.6 mmol/L (3-11); BUN 41 mg/dL (7-18); CO2 21.4 mmol/L (21.0-32.0); CREATININE 1.3 mg/dL (0.70-1.30); Calcium 8.6 mg/dL (8.5-10.1); Chloride 121 mmol/L (98-107); Estimated GFR 60.59 (mL/min/1.73m2); Glucose 158 mg/dL (74-106); Sodium 151 mmol/L (136-145)
[2023-07-30 17:21] LABS: Anion Gap 9.1 mmol/L (3-11); BUN 39 mg/dL (7-18); CO2 21.9 mmol/L (21.0-32.0); CREATININE 1.3 mg/dL (0.70-1.30); Calcium 8.6 mg/dL (8.5-10.1); Chloride 119 mmol/L (98-107); Estimated GFR 60.59 (mL/min/1.73m2); Glucose 117 mg/dL (74-106); Potassium 4.3 mmol/L (3.5-5.1); Sodium 150 mmol/L (136-145)
[2023-07-30] MEDS: Normal Saline 10 ML VIAL IJ (20:07)
[2023-07-30] MEDS: Insulin Aspart 300 UNITS/3 ML PEN SC (20:37)
[2023-07-30 21:26] LABS: Anion Gap 10.4 mmol/L (3-11); BUN 37 mg/dL (7-18); CO2 21.6 mmol/L (21.0-32.0); CREATININE 1.3 mg/dL (0.70-1.30); Calcium 8.3 mg/dL (8.5-10.1); Chloride 115 mmol/L (98-107); Estimated GFR 60.59 (mL/min/1.73m2); Glucose 124 mg/dL (74-106); Potassium 3.8 mmol/L (3.5-5.1); Sodium 147 mmol/L (136-145)
[2023-07-30] MEDS: DEXTROSE 5%-WATER 1,000 ML 200 ML IV (21:35)
[2023-07-31] VITALS (43 sets, daily range): BP systolic 81–105; BP diastolic 42–72; PULSE 51–77; RESP 17–25; TEMP 36–36.2; O2SAT 87–96
--- NOTE | 2023-07-31 00:04 | DI.VRAD_ITS ---
PROCEDURE INFORMATION: Exam: XR Chest Exam date and time: 07/30/2023 11:04 PM Age: 68 years old Clinical indication: Cough and dyspnea TECHNIQUE: Imaging protocol: Radiologic exam of the chest. Views: 1 view. COMPARISON: CR XR PORTABLE CHEST AP 06/09/2023 8:39 AM FINDINGS: Limitations: The lung apices are partially obscured by the patient's chin. Patient positioning is rotated. Tubes, catheters and devices: There is a left subclavian PICC in-situ with its tip near the cavoatrial junction. Lungs: There is bilateral patchy hazy pulmonary opacity in the mid and lower lung zones. Pleural spaces: The left costophrenic angle is obscured. The right costophrenic angle appears partially obscured. No pneumothorax is seen. Heart/Mediastinum: Cardiac monitoring leads overlie the exam. The cardiac silhouette appears enlarged. Bones/joints: There are osteophytes along the thoracic spinal margin. IMPRESSION: 1. Patchy bilateral airspace disease. Multifocal pneumonia is suspected although regions of atelectasis could mimic this appearance. 2. Obscured left costophrenic angle and partially obscured right costophrenic angle suspicious for possible small right and moderate-sized left-sided pleural effusion. Clinical correlation is recommended. Overlying soft tissue could also artifactually produce this appearance. Dictated and Authenticated by: Lee More MD. Ordering:[facility] Otis Spring MD
[2023-07-31 00:41] LABS: Anion Gap 10.4 mmol/L (3-11); BUN 35 mg/dL (7-18); CO2 20.6 mmol/L (21.0-32.0); CREATININE 1.3 mg/dL (0.70-1.30); Calcium 8.2 mg/dL (8.5-10.1); Chloride 113 mmol/L (98-107); Estimated GFR 60.59 (mL/min/1.73m2); Glucose 162 mg/dL (74-106); Potassium 3.7 mmol/L (3.5-5.1); Sodium 144 mmol/L (136-145)
[2023-07-31] MEDS: Furosemide 20 MG/2 ML VIAL IVP ×4 (01:40→20:46)
[2023-07-31] MEDS: Midodrine 2.5 MG TAB 10 MG PO ×3 (06:19→20:38)
[2023-07-31 06:21] LABS: Abs Immature Grans 0.09 10^3/uL (0.0-0.06); Absolute Basophil Count 0.02 10^3/uL (0.0-0.2); Absolute Eosinophil Count 0.03 10^3/uL (0.0-0.7); Absolute Lymphocyte Count 2.56 10^3/uL (1.2-3.4); Absolute Monocyte Count 0.79 10^3/uL (0.1-0.8); Basophils % 0.2; Eosinophils % 0.3; HCT 28.4 % (40.0-50.0); HGB 8.7 g/dL (13.5-17.5); Immature Grans % 0.9; Lymphocytes % 24.9; MCH 29.3 pg (27.0-33.0); MCHC 30.6 % (32.0-36.0); MCV 96 fL (80-95); MPV 11.2 fL (8.0-11.0); Monocytes % 7.7; Nucleated RBC 0.4 % (0.0-0.3); Platelet Count 124 10^3/uL (130-400); RBC 2.97 10^6/uL (4.36-5.78); RDW 24.4 % (11.8-14.1); RDW-SD 82.6 fL; WBC 10.29 10^3/uL (4.4-10.8)
[2023-07-31 06:38] LABS: ALT 18 U/L (16-63); AST 23 U/L (15-37); Albumin 2.5 g/dL (3.4-5.0); Alkaline Phosphatase 73 U/L (46-116); Anion Gap 8.7 mmol/L (3-11); BUN 34 mg/dL (7-18); Bilirubin, Total 0.4 mg/dL (0.2-1.0); CO2 22.3 mmol/L (21.0-32.0); CREATININE 1.2 mg/dL (0.70-1.30); Calcium 8.7 mg/dL (8.5-10.1); Chloride 115 mmol/L (98-107); Glucose 79 mg/dL (74-106); Potassium 3.1 mmol/L (3.5-5.1); Sodium 146 mmol/L (136-145); Total Protein 6.1 g/dL (6.4-8.2)
[2023-07-31 06:39] LABS: Anisocytosis 1+; Hypochromasia 1+
[2023-07-31 06:58] LABS: Lab Add On Test DONE
[2023-07-31 07:14] LABS: Magnesium 1.8 mg/dL (1.8-2.4)
[2023-07-31] MEDS: Pantoprazole 40 MG VIAL IVP ×2 (07:50→20:46)
[2023-07-31] MEDS: POTASSIUM CHLORIDE 20 MEQ/100 ML BAG 50 MEQ IVINF ×5 (07:50→19:29)
[2023-07-31] MEDS: Normal Saline Flush 10 ML SYR IVP ×5 (07:51→23:55)
[2023-07-31] MEDS: Dextrose 50%-Water 25 GM/50 ML SYR IVP ×2 (08:41→12:27)
[2023-07-31] MEDS: DAPTOmycin 500 MG in Normal Saline 50 ML 100 MG IVPB (09:03)
[2023-07-31] MEDS: Glucose Oral Gel 15 GM/37.5 GM TUBE PO (12:23)
--- NOTE | 2023-07-31 12:23 | W.PM.PROGNOT ---
Date of Service Date of service: 07/31/23 Time of Service: 12:23 Assessment and Plan Assessment and plan (1) Acute metabolic encephalopathy: Status: Acute Assessment and plan: encephalopathy remains persistent problem although overall his mentation has improved over the course of this week, he had been pretty somnolent early in the week when he was still septic however his cognition is not back to baseline. His sister is due to come to [facility] tomorrow and will meet w/ the hospitalist and palliative care and care managers. Goals of care will be discussed. 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 He remains on daptomycin for the VRE (Zyvox would also cover but there is increased risk of marrow toxicity w/ prolonged use of Zyvox and he will need 6 to 8 weeks of antibiotics. Critical care time spent interviewing and examining the patient, reviewing studies, discussing case with patient's nurse and consulting physicians was 45 minutes (2) Hypoglycemia: Status: Acute Assessment and plan: patient has had hypoglycemia in the 50's to 60's this morning and needed iv D50. Given his recent septic shock and need for recent stress dose hydrocortisone (dc yesterday), I will work him up for aquired adrenal insufficiency. His random cortisol level prior to the hydrocortisone was normal at 15. I will have nursing and lab perform a Cosyntropin stimulation test, then put him back on hydrocortisone and taper this over next 3 days. (3) Dysphagia: Status: Acute Assessment and plan: I have requested STREET SUPERINTENDENT consult, currently NPO d/t coughing spells after attempts to giving him meds or feedings. Qualifiers: Dysphagia type: unspecified Qualified Code(s): R13.10 - Dysphagia, unspecified (4) Diastolic dysfunction: Assessment and plan: patient remains hypervolemic, CXR done yesterday shows bilateral pleural effusions and alveolar process, clinically not pneumonia (no fever or leukocytosis), I am sure that this is fluid accumulation over last several days in resuscitation of his sepsis and subsequent treatment of his hypernatremia w/ runs of D5W (which I stopped last night although I also had him on lasix concomittantly. I have continued his lasix for now but will continue to monitor his BMP. (5) Anemia due to GI blood loss: Status: Acute Assessment and plan: no reported melena overnight. Hb 8.7 gm, unable to tolerate carafate, however remains on iv protonix. (6) Sacral decubitus ulcer: Status: Resolved Assessment and plan: s/p debridement on 07/24. surgery has now signed off but have given wound dressing orders. Patient will need continued daptomycin for this. 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 coli with subsequent E. coli bacteremia and also possible infection source from his chronic decubitus wound. Patient was on treatment w/ Vancomycin and Cefepime when I assumed his care on Tuesday, he had 3 days of this, then I changed to Aztreonam on Monday 07/24 d/t puritic skin rash over trunk, face and arms. He still has the rash although less intense. I also added Flagyl on Monday 07/24 to improve coverage of mixed andrzej from his sacral wound. Unfortunately no repeat wound culture was obtained at the time of his debridement so I am basing coverage on mixed polymicrobial andrzej and MRSA from wound cultures in May. Urine culture this admission + for E coli and Pseudomonas, and blood culture w/ E coli. Repeat blood cultures 07/24 now now growth at 48 hr. Wound cultures taken yesteray, result pending but gram stain shows rare GPC, no WBC Now that he is off the N.E. drip, I will get MRI of his sacrum/pelvis looking for osteomyelitis; also needs MRI fo thoracic and cervical spine to elucidate any cause for his bedridden state. he has bilateral Babinski response. Will also check MRI brain although his encephalopathy seems to be clearing now that he is off the ativan. I will continue the midodrine and continue the hydrocortisone and fludrocortisone for another 24 hours and wean off the corticosteroids but continue the midodrine. s/p 6 days of vancomycin, now on daptomycin D#3, D#6 aztreonam, D#6 flagyl, He completed 11 days over coverage for gram negative bacteremia and UTI. Both were stopped yesterday. Still getting daptomycin for VRE. Sacral wound growing mixed gram positive organisms, prior cultures from May grew MRSA. 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 (9) E. coli bacteremia: Status: Resolved Assessment and plan: he has completed 11 days of parenteral antibiotics (cefepime/aztreonam) which is sufficient and his bacteremia has cleared. (10) Complicated UTI (urinary tract infection): Status: Acute Assessment and plan: renal US did not show any obstruction or stones, SPC changed by surgery on admission (11) Acute on chronic kidney failure: Status: Acute Assessment and plan: continues to improve. good urine output and creatinine has improved (currently 1.2 down from high of 3.2). Hypernatremia corrected overnight. will continue to monitor BMP closely while on lasix. Qualifiers: Acute renal failure type: with acute tubular necrosis Chronic kidney disease stage: stage 3 (moderate) Chronic kidney disease stage 3 subtype: unspecified whether 3a or 3b Qualified Code(s): N17.0 - Acute kidney failure with tubular necrosis; N18.30 - Chronic kidney disease, stage 3 unspecified (12) Hypokalemia: Status: Resolved Assessment and plan: could not tolerate oral potassium so given iv replacement this morning. (13) Hypomagnesemia: Status: Acute Assessment and plan: Mg 1.8 today. will monitor and replace as he receives lasix. Subjective Subjective Interval history since last seen: Isra is having difficulty w/ swallowing. I had to make him NPO last night. I stopped his fludrocortisone and hyrdrocortisone yesterday as his BP were stable and he had been off the norepinephrine drip since 07/27. He remains confused although more alert Exam Narrative Exam Narrative: Isra is awake, alert but confused (confusing the nurse w/ his sister, also accused the nurse of putting poison in his iv) He has moist cough, remains afebrile and his oxygen saturation on room air is tenuous, currently 88% but has been better, up to 94%. he has been off oxygen since last night Lungs: moist bilateral rales primarily at the bases Heart: RRR, sinus rhythm in the 60's occasional PVC but no runs Abdomen: soft, nondistended, nontender Extremities: hands and arms not edematous, legs: lower tibia 2+ edema Neuro: confused but awake, appropriately follows one step commands, normal handgrip strength, able to voluntarily move his feet/toes; no facial asymmetry, no dysarthric speech Objective Last Vital Signs Temp 36.2 C L 07/31/23 04:08 Pulse 72 07/31/23 11:01 Resp 20 07/31/23 11:01 BP 83/64 L 07/31/23 11:01 Pulse Ox 94 07/31/23 11:01 Laboratory Results - last 24 hr 07/30/23 07/30/23 07/30/23 13:50 16:55 21:00 WBC RBC Hgb Hct MCV MCH MCHC RDW Plt Count MPV Immature Gran % Neutrophils % Lymphocytes % Monocytes % Eosinophils % Basophils % Nucleated RBC % Absolute Neutrophils Absolute Lymphocytes Absolute Monocytes Absolute Eosinophils Absolute Basophils RBC Morphology Hypochromasia Anisocytosis Sodium 151 H 150 H 147 H Potassium 4.0 4.3 3.8 Chloride 121 H 119 H 115 H Carbon Dioxide 21.4 21.9 21.6 Anion Gap 8.6 9.1 10.4 BUN 41 H 39 H 37 H Creatinine 1.3 1.3 1.3 Est GFR (CKD-EPI 2020) 60.59 60.59 60.59 Glucose 158 H 117 H 124 H Calcium 8.6 8.6 8.3 L Magnesium Total Bilirubin AST ALT Alkaline Phosphatase Total Protein Albumin Add-On Test Request 07/31/23 07/31/23 07/31/23 00:24 04:00 04:00 WBC RBC Hgb Hct MCV MCH MCHC RDW Plt Count MPV Immature Gran % Neutrophils % Lymphocytes % Monocytes % Eosinophils % Basophils % Nucleated RBC % Absolute Neutrophils Absolute Lymphocytes Absolute Monocytes Absolute Eosinophils Absolute Basophils RBC Morphology Hypochromasia Anisocytosis Sodium 144 Cancelled Cancelled Potassium 3.7 Cancelled Chloride 113 H Carbon Dioxide 20.6 L Anion Gap 10.4 BUN 35 H Creatinine 1.3 Est GFR (CKD-EPI 2020) 60.59 Glucose 162 H Calcium 8.2 L Magnesium Total Bilirubin AST ALT Alkaline Phosphatase Total Protein Albumin Add-On Test Request 07/31/23 07/31/23 07/31/23 04:00 04:00 04:00 WBC RBC Hgb Hct MCV MCH MCHC RDW Plt Count MPV Immature Gran % Neutrophils % Lymphocytes % Monocytes % Eosinophils % Basophils % Nucleated RBC % Absolute Neutrophils Absolute Lymphocytes Absolute Monocytes Absolute Eosinophils Absolute Basophils RBC Morphology Hypochromasia Anisocytosis Sodium Potassium Cancelled Chloride Cancelled Cancelled Carbon Dioxide Cancelled Cancelled Anion Gap Cancelled BUN Creatinine Est GFR (CKD-EPI 2020) Glucose Calcium Magnesium Total Bilirubin AST ALT Alkaline Phosphatase Total Protein Albumin Add-On Test Request 07/31/23 07/31/23 07/31/23 04:00 04:00 04:00 WBC RBC Hgb Hct MCV MCH MCHC RDW Plt Count MPV Immature Gran % Neutrophils % Lymphocytes % Monocytes % Eosinophils % Basophils % Nucleated RBC % Absolute Neutrophils Absolute Lymphocytes Absolute Monocytes Absolute Eosinophils Absolute Basophils RBC Morphology Hypochromasia Anisocytosis Sodium Potassium Chloride Carbon Dioxide Anion Gap Cancelled BUN Cancelled Cancelled Creatinine Cancelled Cancelled Est GFR (CKD-EPI 2020) Cancelled Glucose Calcium Magnesium Total Bilirubin AST ALT Alkaline Phosphatase Total Protein Albumin Add-On Test Request 07/31/23 07/31/23 07/31/23 04:00 04:00 04:00 WBC RBC Hgb Hct MCV MCH MCHC RDW Plt Count MPV Immature Gran % Neutrophils % Lymphocytes % Monocytes % Eosinophils % Basophils % Nucleated RBC % Absolute Neutrophils Absolute Lymphocytes Absolute Monocytes Absolute Eosinophils Absolute Basophils RBC Morphology Hypochromasia Anisocytosis Sodium Potassium Chloride Carbon Dioxide Anion Gap BUN Creatinine Est GFR (CKD-EPI 2020) Cancelled Glucose Cancelled Cancelled Calcium Cancelled Cancelled Magnesium Total Bilirubin AST ALT Alkaline Phosphatase Total Protein Albumin Add-On Test Request 07/31/23 05:55 WBC 10.29 RBC 2.97 L Hgb 8.7 L Hct 28.4 L MCV 96 H MCH 29.3 MCHC 30.6 L RDW 24.4 H Plt Count 124 L MPV 11.2 H Immature Gran % 0.9 Neutrophils % 66.0 Lymphocytes % 24.9 Monocytes % 7.7 Eosinophils % 0.3 Basophils % 0.2 Nucleated RBC % 0.4 H Absolute Neutrophils 6.80 H Absolute Lymphocytes 2.56 Absolute Monocytes 0.79 Absolute Eosinophils 0.03 Absolute Basophils 0.02 RBC Morphology See Below Hypochromasia 1+ Anisocytosis 1+ Sodium 146 H Potassium 3.1 L Chloride 115 H Carbon Dioxide 22.3 Anion Gap 8.7 BUN 34 H Creatinine 1.2 Est GFR (CKD-EPI 2020) 66.70 Glucose 79 Calcium 8.7 Magnesium 1.8 Total Bilirubin 0.4 AST 23 ALT 18 Alkaline Phosphatase 73 Total Protein 6.1 L Albumin 2.5 L Add-On Test Request DONE Time Spent with Patient Time Spent with Patient: 35-49 minutes Time was spent: preparing to see the patient(eg.review tests), ordering medications,tests, procedures, referring, communicating with other health career development manager, indepentently interpreting results and care coordination
[2023-07-31] MEDS: Cosyntropin 0.25 MG VIAL IVP (12:49)
[2023-07-31 13:02] LABS: Lab Add On Test DONE
[2023-07-31 13:17] LABS: Iron 58 ug/dL (65-175); Total Iron Binding Capacity 147 ug/dL (250-450); Transferrin Sat 39 % (20-55)
[2023-07-31 13:52] LABS: Ferritin 1473 ng/mL (26-388)
[2023-07-31 14:14] LABS: Anion Gap 11.9 mmol/L (3-11); BUN 29 mg/dL (7-18); CO2 21.1 mmol/L (21.0-32.0); CREATININE 1.1 mg/dL (0.70-1.30); Calcium 8.4 mg/dL (8.5-10.1); Chloride 116 mmol/L (98-107); Estimated GFR 74.04 (mL/min/1.73m2); Glucose 81 mg/dL (74-106); Sodium 149 mmol/L (136-145)
[2023-07-31 14:18] LABS: Potassium 2.9 mmol/L (3.5-5.1)
--- NOTE | 2023-07-31 14:30 | PGE_ITS ---
Date of Service Date of service: 07/31/23 Time of Service: 14:31 Assessment and Plan Assessment and plan (1) Cor pulmonale (chronic): Status: Chronic (2) Mitral regurgitation: Status: Chronic (3) Paroxysmal A-fib: Status: Acute (4) DVT (deep venous thrombosis): Status: Chronic Qualifiers: DVT location: lower extremity Affected thrombotic vein of extremity: unspecified vein of extremity Chronicity: chronic Laterality: bilateral Qualified Code(s): I82.503 - Chronic embolism and thrombosis of unspecified deep veins of lower extremity, bilateral (5) Thrombosis of right saphenous vein: Status: Acute (6) Protein-calorie malnutrition, moderate: Status: Acute (7) Hypoadrenergic postural hypotension: Status: Acute (8) Hypoglycemia: Status: Acute (9) Acute on chronic kidney failure: Status: Acute Qualifiers: Acute renal failure type: with acute tubular necrosis Chronic kidney disease stage: stage 3 (moderate) Chronic kidney disease stage 3 subtype: unsp ecified whether 3a or 3b Qualified Code(s): N17.0 - Acute kidney failure with tubular necrosis; N18.30 - Chronic kidney disease, stage 3 unspecified (10) Anemia due to GI blood loss: Status: Acute (11) Septic shock: Status: Resolved (12) E. 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: Status: Acute (15) Ischemic ulcer of right ankle, limited to breakdown of skin: Status: Acute (16) Weakness of both lower extremities: Status: Acute (17) Acute metabolic encephalopathy: Status: Acute (18) Cord compression syndrome: Status: Suspected (19) COPD (chronic obstructive pulmonary disease): Status: Chronic Qualifiers: COPD type: emphysema Emphysema type: centrilobular Qualified Code(s): J43.2 - Centrilobular emphysema (20) Respiratory distress: Status: Acute (21) Pleural effusion: Status: Acute (22) HCAP (healthcare-associated pneumonia): Status: Acute (23) Dyspnea: Status: Acute (24) Lymphedema of both lower extremities: Status: Chronic (25) Severe swallowing dysfunction: Status: Acute Subjective Subjective Interval history since last seen: Patient is not able to give much history, so information is taking from the nursing -Patient has not had any melena in the past 48 hours. Hemoglobin is stable. Continue PPI and Carafate -Patient is not able to swallow. Speech has been consulted. He is in extreme nutrition risk. He has not eaten anything meaningfully since his admission. Would probably recommend Dobbhoff placement and start tube feeding. -His wounds are growing out VRE. See Dr. Campoverde's notes-s/p 6 days of vancomycin, now on daptomycin D#3, D#6 aztreonam, D#6 flagyl, he does have a wound VAC on his right buttock to protect the wound from stool.. He is due for wound VAC change tomorrow. the wound could be recultured at that time. He has a very obvious osteo. -MRIs were inconclusive due to motion artifact Patient is not a surgical candidate even for an EGD or PEG tube placement. We will continue to follow peripherally. Please contact our service if there are any acute needs This document was created with voice activated software and may contain errors. 20 mins spent discussion with nursing and Dr. Campoverde. Objective Last Vital Signs Temp 36.2 C L 07/31/23 04:08 Pulse 59 L 07/31/23 13:45 Resp 23 07/31/23 13:45 BP 82/58 L 07/31/23 13:45 Pulse Ox 92 07/31/23 13:45 Laboratory Results - last 24 hr 07/30/23 07/30/23 07/31/23 16:55 21:00 00:24 WBC RBC Hgb Hct MCV MCH MCHC RDW Plt Count MPV Immature Gran % Neutrophils % Lymphocytes % Monocytes % Eosinophils % Basophils % Nucleated RBC % Absolute Neutrophils Absolute Lymphocytes Absolute Monocytes Absolute Eosinophils Absolute Basophils RBC Morphology Hypochromasia Anisocytosis Sodium 150 H 147 H 144 Potassium 4.3 3.8 3.7 Chloride 119 H 115 H 113 H Carbon Dioxide 21.9 21.6 20.6 L Anion Gap 9.1 10.4 10.4 BUN 39 H 37 H 35 H Creatinine 1.3 1.3 1.3 Est GFR (CKD-EPI 2020) 60.59 60.59 60.59 Glucose 117 H 124 H 162 H Calcium 8.6 8.3 L 8.2 L Magnesium Iron TIBC Transferrin % Sat Ferritin Total Bilirubin AST ALT Alkaline Phosphatase Total Protein Albumin Add-On Test Request 07/31/23 07/31/23 07/31/23 04:00 04:00 04:00 WBC RBC Hgb Hct MCV MCH MCHC RDW Plt Count MPV Immature Gran % Neutrophils % Lymphocytes % Monocytes % Eosinophils % Basophils % Nucleated RBC % Absolute Neutrophils Absolute Lymphocytes Absolute Monocytes Absolute Eosinophils Absolute Basophils RBC Morphology Hypochromasia Anisocytosis Sodium Cancelled Cancelled Potassium Cancelled Cancelled Chloride Cancelled Carbon Dioxide Anion Gap BUN Creatinine Est GFR (CKD-EPI 2020) Glucose Calcium Magnesium Iron TIBC Transferrin % Sat Ferritin Total Bilirubin AST ALT Alkaline Phosphatase Total Protein Albumin Add-On Test Request 07/31/23 07/31/23 07/31/23 04:00 04:00 04:00 WBC RBC Hgb Hct MCV MCH MCHC RDW Plt Count MPV Immature Gran % Neutrophils % Lymphocytes % Monocytes % Eosinophils % Basophils % Nucleated RBC % Absolute Neutrophils Absolute Lymphocytes Absolute Monocytes Absolute Eosinophils Absolute Basophils RBC Morphology Hypochromasia Anisocytosis Sodium Potassium Chloride Cancelled Carbon Dioxide Cancelled Cancelled Anion Gap Cancelled Cancelled BUN Cancelled Creatinine Est GFR (CKD-EPI 2020) Glucose Calcium Magnesium Iron TIBC Transferrin % Sat Ferritin Total Bilirubin AST ALT Alkaline Phosphatase Total Protein Albumin Add-On Test Request 07/31/23 07/31/23 07/31/23 04:00 04:00 04:00 WBC RBC Hgb Hct MCV MCH MCHC RDW Plt Count MPV Immature Gran % Neutrophils % Lymphocytes % Monocytes % Eosinophils % Basophils % Nucleated RBC % Absolute Neutrophils Absolute Lymphocytes Absolute Monocytes Absolute Eosinophils Absolute Basophils RBC Morphology Hypochromasia Anisocytosis Sodium Potassium Chloride Carbon Dioxide Anion Gap BUN Cancelled Creatinine Cancelled Cancelled Est GFR (CKD-EPI 2020) Cancelled Cancelled Glucose Cancelled Calcium Magnesium Iron TIBC Transferrin % Sat Ferritin Total Bilirubin AST ALT Alkaline Phosphatase Total Protein Albumin Add-On Test Request 07/31/23 07/31/23 07/31/23 04:00 04:00 05:55 WBC 10.29 RBC 2.97 L Hgb 8.7 L Hct 28.4 L MCV 96 H MCH 29.3 MCHC 30.6 L RDW 24.4 H Plt Count 124 L MPV 11.2 H Immature Gran % 0.9 Neutrophils % 66.0 Lymphocytes % 24.9 Monocytes % 7.7 Eosinophils % 0.3 Basophils % 0.2 Nucleated RBC % 0.4 H Absolute Neutrophils 6.80 H Absolute Lymphocytes 2.56 Absolute Monocytes 0.79 Absolute Eosinophils 0.03 Absolute Basophils 0.02 RBC Morphology See Below Hypochromasia 1+ Anisocytosis 1+ Sodium 146 H Potassium 3.1 L Chloride 115 H Carbon Dioxide 22.3 Anion Gap 8.7 BUN 34 H Creatinine 1.2 Est GFR (CKD-EPI 2020) 66.70 Glucose Cancelled 79 Calcium Cancelled Cancelled 8.7 Magnesium 1.8 Iron 58 L TIBC 147 L Transferrin % Sat 39 Ferritin 1473 H Total Bilirubin 0.4 AST 23 ALT 18 Alkaline Phosphatase 73 Total Protein 6.1 L Albumin 2.5 L Add-On Test Request DONE DONE 07/31/23 13:54 WBC RBC Hgb Hct MCV MCH MCHC RDW Plt Count MPV Immature Gran % Neutrophils % Lymphocytes % Monocytes % Eosinophils % Basophils % Nucleated RBC % Absolute Neutrophils Absolute Lymphocytes Absolute Monocytes Absolute Eosinophils Absolute Basophils RBC Morphology Hypochromasia Anisocytosis Sodium 149 H Potassium 2.9 L* Chloride 116 H Carbon Dioxide 21.1 Anion Gap 11.9 H BUN 29 H Creatinine 1.1 Est GFR (CKD-EPI 2020) 74.04 Glucose 81 Calcium 8.4 L Magnesium Iron TIBC Transferrin % Sat Ferritin Total Bilirubin AST ALT Alkaline Phosphatase Total Protein Albumin Add-On Test Request Time Spent with Patient Time Spent with Patient: <25 minutes Time was spent: preparing to see the patient(eg.review tests), obtaining and/or reviewing separately otained hiistory, ordering medications,tests, procedures, referring, communicating with other health managed care specialist, indepentently interpreting results, counseling the patient and care coordination
[2023-07-31 14:59] LABS: Lab Add On Test DONE
[2023-07-31 15:06] LABS: Magnesium 1.7 mg/dL (1.8-2.4)
[2023-07-31] MEDS: Hydrocortisone SOD SUC. 100 MG VIAL 25 MG IVP ×2 (15:57→23:53)
[2023-07-31 16:03] LABS: Osmolality, Urine 463 mOsm/kg (150-1150)
[2023-07-31 16:20] LABS: Osmolality Serum 325 mOsm/kg (275-295)
[2023-07-31] MEDS: MAGNESIUM SULFATE 2 GM/50 ML BAG IVINF (17:33)
[2023-07-31] MEDS: Normal Saline 500 ML IV (18:03)
[2023-07-31 20:35] LABS: Anion Gap 9.3 mmol/L (3-11); BUN 27 mg/dL (7-18); CO2 23.7 mmol/L (21.0-32.0); Calcium 8.4 mg/dL (8.5-10.1); Chloride 116 mmol/L (98-107); Estimated GFR 83.01 (mL/min/1.73m2); Glucose 80 mg/dL (74-106); Potassium 3.8 mmol/L (3.5-5.1); Sodium 149 mmol/L (136-145)
[2023-07-31] MEDS: Normal Saline 10 ML VIAL IJ (20:40)
[2023-07-31] MEDS: DEXTROSE 5%-WATER 1,000 ML 150 ML IV (23:46)
[2023-08-01] VITALS (33 sets, daily range): BP systolic 79–105; BP diastolic 47–71; PULSE 56–72; RESP 15–27; TEMP 36.1–36.5; O2SAT 89–96
[2023-08-01 00:23] LABS: Anion Gap 9.5 mmol/L (3-11); BUN 26 mg/dL (7-18); CO2 25.5 mmol/L (21.0-32.0); Calcium 8.7 mg/dL (8.5-10.1); Chloride 115 mmol/L (98-107); Estimated GFR 83.01 (mL/min/1.73m2); Glucose 76 mg/dL (74-106); Potassium 3.4 mmol/L (3.5-5.1); Sodium 150 mmol/L (136-145)
[2023-08-01] MEDS: Normal Saline Flush 10 ML SYR IVP ×3 (03:55→20:05)
[2023-08-01 04:23] LABS: Anion Gap 9.8 mmol/L (3-11); BUN 25 mg/dL (7-18); CO2 25.2 mmol/L (21.0-32.0); CREATININE 1.1 mg/dL (0.70-1.30); Calcium 8.4 mg/dL (8.5-10.1); Chloride 114 mmol/L (98-107); Estimated GFR 74.04 (mL/min/1.73m2); Glucose 108 mg/dL (74-106); Potassium 3.1 mmol/L (3.5-5.1); Sodium 149 mmol/L (136-145)
[2023-08-01] MEDS: MAGNESIUM SULFATE 1 GM/100 ML BAG IVINF (06:01)
[2023-08-01] MEDS: POTASSIUM CHLORIDE 20 MEQ/100 ML BAG 50 MEQ IVINF ×2 (06:02→08:00)
[2023-08-01] MEDS: DEXTROSE 5%-WATER 1,000 ML 150 ML IV ×2 (06:31→13:30)
[2023-08-01 06:54] LABS: Abs Immature Grans 0.07 10^3/uL (0.0-0.06); Absolute Basophil Count 0.01 10^3/uL (0.0-0.2); Absolute Eosinophil Count 0.02 10^3/uL (0.0-0.7); Absolute Lymphocyte Count 1.49 10^3/uL (1.2-3.4); Absolute Monocyte Count 0.58 10^3/uL (0.1-0.8); Absolute Neutrophil Count 7.88 10^3/uL (1.2-6.7); Basophils % 0.1; Eosinophils % 0.2; HGB 8.4 g/dL (13.5-17.5); Immature Grans % 0.7; Lymphocytes % 14.8; MCH 29.9 pg (27.0-33.0); MCHC 31.1 % (32.0-36.0); MCV 96 fL (80-95); MPV 11.4 fL (8.0-11.0); Monocytes % 5.8; Neutrophils % 78.4; Platelet Count 119 10^3/uL (130-400); RBC 2.81 10^6/uL (4.36-5.78); RDW 24.2 % (11.8-14.1); RDW-SD 80.4 fL; WBC 10.05 10^3/uL (4.4-10.8)
[2023-08-01 07:08] LABS: Magnesium 2.1 mg/dL (1.8-2.4)
[2023-08-01 07:13] LABS: ALT 23 U/L (16-63); AST 28 U/L (15-37); Albumin 2.2 g/dL (3.4-5.0); Alkaline Phosphatase 74 U/L (46-116); Anion Gap 8.6 mmol/L (3-11); BUN 24 mg/dL (7-18); Bilirubin, Total 0.3 mg/dL (0.2-1.0); C-Reactive Protein 1.44 mg/dL (<or=0.5); CO2 26.4 mmol/L (21.0-32.0); Calcium 8.4 mg/dL (8.5-10.1); Chloride 112 mmol/L (98-107); Estimated GFR 83.01 (mL/min/1.73m2); Glucose 102 mg/dL (74-106); Sodium 147 mmol/L (136-145); Total Protein 5.9 g/dL (6.4-8.2)
[2023-08-01 07:15] LABS: Potassium 2.9 mmol/L (3.5-5.1)
[2023-08-01 07:37] LABS: Anisocytosis 2+; Diff Comment RBC Morph Reviewed
[2023-08-01] MEDS: Hydrocortisone SOD SUC. 100 MG VIAL 25 MG IVP (08:42)
--- NOTE | 2023-08-01 08:42 | PGE_ITS ---
Date of Service Date of service: 08/01/23 Time of Service: 08:47 Assessment and Plan Assessment and plan (1) Comfort measures only status: Status: Acute Assessment and plan: Prolonged discussion was had with the patient's sister who is his DURABLE POWER OF RETAIL BAKERY MANAGER as well as with his brother who was on the phone out of town living in [place]. They both understand that the patient had a poor quality of life, and that his current medical condition is extremely unlikely to improve. Therefore, they have elected for patient to be transitioned to comfort measures only. 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 coli with subsequent E. coli bacteremia and also possible infection source from his chronic decubitus wound. -changed to Aztreonam on Monday 07/24 d/t puritic skin rash over trunk, face and arms -also added Flagyl on Monday 07/24 to improve coverage of mixed andrzej from his sacral wound. -no repeat wound culture was obtained at the time of his debridement, basing coverage on mixed polymicrobial andrzej and MRSA from wound cultures in May. -Urine culture this admission + for E coli and Pseudomonas, and blood culture w/ E coli. Repeat blood cultures 07/24 now now growth at 48 hr. -Wound cultures taken 07/29 result pending but gram stain shows rare GPC, no WBC -Now that he is off the N.E. drip, -midodrine and continue the hydrocortisone and fludrocortisone for another 24 hours and wean off the corticosteroids but continue the midodrine. -s/p 6 days of vancomycin -now on daptomycin D#4, D#6 aztreonam, D#7 flagyl -He completed 11 days over coverage for gram negative bacteremia and UTI. Both were stopped 4/13. 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 -all antibiotics and treatment has since been dicsontinued as noted above (3) Acute metabolic encephalopathy: Status: Acute Assessment and plan: -encephalopathy remains persistent problem although overall his mentation has improved over the course of this week,though his cognition is not back to baseline (4) Hypoglycemia: Status: Acute Assessment and plan: -had hypoglycemia in the 50's to 60's this morning and needed iv D50. (5) Dysphagia: Status: Acute Qualifiers: Dysphagia type: unspecified Qualified Code(s): R13.10 - Dysphagia, unspecified (6) Diastolic dysfunction: (7) Anemia due to GI blood loss: Status: Acute (8) Sacral decubitus ulcer: Status: Resolved Assessment and plan: -s/p debridement on 07/24. surgery has now signed off but have given wound dressing orders. Qualifiers: Pressure injury stage: stage 4 Qualified Code(s): L89.154 - Pressure ulcer of sacral region, stage 4 (9) Stage IV pressure ulcer of right buttock: Status: Acute (10) E. coli bacteremia: Status: Resolved Assessment and plan: he has completed 11 days of parenteral antibiotics (cefepime/aztreonam) which is sufficient and his bacteremia has cleared. (11) Complicated UTI (urinary tract infection): Status: Acute Assessment and plan: renal US did not show any obstruction or stones, SPC changed by surgery on admission (12) Acute on chronic kidney failure: Status: Acute Qualifiers: Acute renal failure type: with acute tubular necrosis Chronic kidney disease stage: stage 3 (moderate) Chronic kidney disease stage 3 subtype: unspecified whether 3a or 3b Qualified Code(s): N17.0 - Acute kidney failure with tubular necrosis; N18.30 - Chronic kidney disease, stage 3 unspecified (13) Hypokalemia: Status: Resolved (14) Hypomagnesemia: Status: Acute Subjective Subjective Interval history since last seen: Patient continues to appear confused, and other than appearing to be in mild respiratory distress is able to state that he has no other complaints concerns at this time. Exam Narrative Exam Narrative: Chronically ill-appearing gentleman laying in bed in no acute distress, awake, alert, oriented to person only, heart regular rate and rhythm, lungs faint crackles and decreased breath sounds bilateral bases, abdomen soft, nontender, nondistended, +2 pitting edema in bilateral lower extremities Objective Last Vital Signs Temp 97.0 F L 08/01/23 05:01 Pulse 62 08/01/23 06:21 Resp 20 08/01/23 06:21 BP 93/60 L 08/01/23 06:21 Pulse Ox 93 08/01/23 06:21 Laboratory Results - last 24 hr 07/30/23 07/30/23 07/31/23 04:45 05:40 04:00 WBC RBC Hgb Hct MCV MCH MCHC RDW Plt Count MPV Immature Gran % Neutrophils % Lymphocytes % Monocytes % Eosinophils % Basophils % Nucleated RBC % Absolute Neutrophils Absolute Lymphocytes Absolute Monocytes Absolute Eosinophils Absolute Basophils RBC Morphology Anisocytosis Sodium Potassium Chloride Carbon Dioxide Anion Gap BUN Creatinine Est GFR (CKD-EPI 2020) Glucose Serum Osmolality 325 H Calcium Magnesium Iron 58 L TIBC 147 L Transferrin % Sat 39 Ferritin 1473 H Total Bilirubin AST ALT Alkaline Phosphatase C-Reactive Protein Total Protein Albumin Urine Osmolality 463 Add-On Test Request DONE 07/31/23 07/31/23 07/31/23 12:49 13:54 20:13 WBC RBC Hgb Hct MCV MCH MCHC RDW Plt Count MPV Immature Gran % Neutrophils % Lymphocytes % Monocytes % Eosinophils % Basophils % Nucleated RBC % Absolute Neutrophils Absolute Lymphocytes Absolute Monocytes Absolute Eosinophils Absolute Basophils RBC Morphology Anisocytosis Sodium 149 H 149 H Potassium 2.9 L* 3.8 Chloride 116 H 116 H Carbon Dioxide 21.1 23.7 Anion Gap 11.9 H 9.3 BUN 29 H 27 H Creatinine 1.1 1.0 Est GFR (CKD-EPI 2020) 74.04 83.01 Glucose 81 80 Serum Osmolality Calcium 8.4 L 8.4 L Magnesium 1.7 L Iron TIBC Transferrin % Sat Ferritin Total Bilirubin AST ALT Alkaline Phosphatase C-Reactive Protein Total Protein Albumin Urine Osmolality Add-On Test Request DONE 07/31/23 08/01/23 08/01/23 22:00 00:01 04:03 WBC RBC Hgb Hct MCV MCH MCHC RDW Plt Count MPV Immature Gran % Neutrophils % Lymphocytes % Monocytes % Eosinophils % Basophils % Nucleated RBC % Absolute Neutrophils Absolute Lymphocytes Absolute Monocytes Absolute Eosinophils Absolute Basophils RBC Morphology Anisocytosis Sodium Cancelled 150 H 149 H Potassium Cancelled 3.4 L 3.1 L Chloride Cancelled 115 H 114 H Carbon Dioxide Cancelled 25.5 25.2 Anion Gap Cancelled 9.5 9.8 BUN Cancelled 26 H 25 H Creatinine Cancelled 1.0 1.1 Est GFR (CKD-EPI 2020) Cancelled 83.01 74.04 Glucose Cancelled 76 108 H Serum Osmolality Calcium Cancelled 8.7 8.4 L Magnesium Iron TIBC Transferrin % Sat Ferritin Total Bilirubin AST ALT Alkaline Phosphatase C-Reactive Protein Total Protein Albumin Urine Osmolality Add-On Test Request 08/01/23 05:25 WBC 10.05 RBC 2.81 L Hgb 8.4 L Hct 27.0 L MCV 96 H MCH 29.9 MCHC 31.1 L RDW 24.2 H Plt Count 119 L MPV 11.4 H Immature Gran % 0.7 Neutrophils % 78.4 Lymphocytes % 14.8 Monocytes % 5.8 Eosinophils % 0.2 Basophils % 0.1 Nucleated RBC % 0.0 Absolute Neutrophils 7.88 H Absolute Lymphocytes 1.49 Absolute Monocytes 0.58 Absolute Eosinophils 0.02 Absolute Basophils 0.01 RBC Morphology See Below Anisocytosis 2+ Sodium 147 H Potassium 2.9 L* Chloride 112 H Carbon Dioxide 26.4 Anion Gap 8.6 BUN 24 H Creatinine 1.0 Est GFR (CKD-EPI 2020) 83.01 Glucose 102 Serum Osmolality Calcium 8.4 L Magnesium 2.1 Iron TIBC Transferrin % Sat Ferritin Total Bilirubin 0.3 AST 28 ALT 23 Alkaline Phosphatase 74 C-Reactive Protein 1.44 H Total Protein 5.9 L Albumin 2.2 L Urine Osmolality Add-On Test Request Time Spent with Patient Time Spent with Patient: >50 minutes Time was spent: preparing to see the patient(eg.review tests), obtaining and/or reviewing separately otained hiistory, ordering medications,tests, procedures, referring, communicating with other health property caretaker, indepentently interpreting results, counseling the patient and care coordination
[2023-08-01] MEDS: Furosemide 20 MG/2 ML VIAL IVP (08:44)
[2023-08-01] MEDS: Pantoprazole 40 MG VIAL IVP (08:45)
[2023-08-01 08:54] LABS: BUN 21 mg/dL (7-18); Calcium 8.3 mg/dL (8.5-10.1); Chloride 111 mmol/L (98-107); Estimated GFR 83.01 (mL/min/1.73m2); Glucose 149 mg/dL (74-106); Potassium 3.6 mmol/L (3.5-5.1); Sodium 144 mmol/L (136-145)
--- NOTE | 2023-08-01 08:56 | PDOC.CMPRO ---
Date of service: 08/01/23 Time of Service: 08:57 Care Management Progress Note Progress Note Text Progress Note Text: S/O: Isra was sitting up in bed visiting with his sister Mariluz when CM met with him. He was more alert and oriented than in the recent past. He recognized his sister and CM. A discussion was held about comfort measure and Mariluz indicated that she just wanted Isra to be comfortable. She asked Isra if he was uncomfortable breathing and he stated he was. She asked him if he would want to stop all of the aggressive treatments and just be comfortable and he did not state that it was what he wanted. A follow up Palliative Care consult is scheduled for this afternoon with Dr. Freeman to clarify goals of care and the plan of care moving forward, Clinically, Isra has not improved as much as it was hoped. He is still hypotensive, audibly congested and has intermittent confusion. A: Isra is a 68 year old man admitted on 07/22/23 with sepsis P:Anticipate Isra will return to [facility] when medically stable, unless he is made comfort measures. CM will follow and continue to support Isra and his famil and assess for discharge needs. SDOH(Care Management) Screening Will the Patient Participate in the Screening?: Unable to obtain In the past 12 months, have you had to go without electric, gas, oil or water in your home?: no Have you or anyone in your house had to go without enough food to eat?: no Has lack of transportation kept you from medical appointments or from doing things needed for daily living?: yes Has anyone in your support network made you feel unsafe for any reason?: no Health Related Social Needs Health related social needs: transportation insecurity(Z59.82)
[2023-08-01] MEDS: Folic Acid 1 MG TAB PO (09:16)
[2023-08-01] MEDS: Midodrine 2.5 MG TAB 10 MG PO (09:17)
[2023-08-01] MEDS: Protein Nutritional Supplement 16 GM 1 OUNCE PACKET PO (09:17)
--- NOTE | 2023-08-01 09:52 | W.SPSTE ---
Date of service: 08/01/23 Time of Service: 08:30 Subjective Clinical (Bedside) Swallow Evaluation Speech Language Pathology Referred by: Dr Berg Referral Type: Clinical Swallow Evaluation Reason for Referral/HPI: Isra Mao is a 68 yo male who was adm 07/22/23 with sepsis in the setting of chronic stage IV decubitus ulcer. His PMH is significant for CHF, COPD, CKD, Chrohn's. He has been wheel chair bound x6 months with unclear etiology- with question of spinal cord injury vs abscess, with rapidly developing sacral wound. He had a partial surgical debridment on 07/25/23. He has had AMS since admission and has become more lethargic with suspected encephalopathy, and was made NPO by hospitalist over the weekend due to somnolence and coughing with food. POUCH MAKING MACHINE OPERATOR IMPRESSIONS & RECOMMENDATIONS: Isra was seen today sitting upright in bed tolerating nasal canula. He was awake and alert though fatigued; able to follow some commands with slowed response time. Isra did not respond initially to questions, though later in evaluation did reply in brief sentences, with clear voice noted. Following oral care, he accepted PO trials of applesauce (4oz) and thin liquid (3-4oz) given max feeding support with intermittent brief coughing (3-4x total); no change in vocal quality. Vital signs remained stable with SPO2 >94%. Recommend initiate PO diet as listed below, with strict aspiration precautions and low threshold to discontinue PO with somnolence/decline in alertness or with overt s/s aspiration. FURTHER POUCH MAKING MACHINE OPERATOR SERVICES: Patient to be followed while on unit. Upon Discharge, recommend POUCH MAKING MACHINE OPERATOR services at [facility] Diet Recommendations: SOLIDS: 4-Pureed Solids LIQUIDS: 0-Thin Liquids MEDICATIONS: Crushed in applesauce (whole in applesauce OK if very small pill) RISK MANAGEMENT: HOB upright as tolerated; bolt upright for all PO intake. Oral hygiene before/after PO intake, use suction swab prn Level of Assistance/Supervision: 1:1 close supervision/assistance for all PO intake Strategies/Adaptations/Assistive Equipment: PO intake only when awake/alert? Reduce auditory and/or visual distractions when eating Small sips and bites when eating Slow rate of intake Small/frequent meals throughout day Posture/Positioning Needs: Maintain upright position at least 30 minutes after meals SUBJECTIVE: Patient received awake and alert with slow processing/weakness Pain Reported? None Baseline Swallow Function: Patient unable to provide history at this time PO Trials Assessed: Ice IDDSI 0 Thin Liquids IDDSI 4 Puree Solid Oral Mechanism Examination: Patient is edentulous. Oral mucosa is moist. Cranial Nerve Assessment: Unable to formally assess due to cognition. Global weakness appreciated in the setting of deconditioned status- no asymmetry or significant weakness appreciated. Oral Phase Findings: Slow with bolus manipulation/transport No residue/pocketing Pharyngeal Phase Findings: Delayed swallow initiation Reduced hyolaryngeal elevation/excursion Cough after swallow - intermittently, 3-4x in visit, unclear if directly related to applesauce vs water ? [place] Swallow Protocol Results: Unable to assess??? ASSESSMENT: Further POUCH MAKING MACHINE OPERATOR Services indicated. Patient to be followed while on unit. Recommendation at Discharge: POUCH MAKING MACHINE OPERATOR Services at [facility] Suggested Referrals: N/A Recommended Procedures: N/A at this time Education Provided to: Nursing, Physician, Patient Topics Addressed: POUCH MAKING MACHINE OPERATOR findings, recommendations/aspiration precautions PLAN: Frequency: 3-4x/week for 1-2 weeks Goals: Manager Information Goals: Patient will remain free from aspiration-related illness, malnutrition, and dehydration. Short Term Goals: Patient/family will comprehend education provided re: dysphagia, impact of illness on swallow function, aspiration risks. Patient will tolerate Puree Diet and Thin liquids without overt s/s aspiration across 2/2 visits. Patient will tolerate PO trials for consideration of diet upgrade without overt s/s aspiration across 2/2 visits. POUCH MAKING MACHINE OPERATOR CPT Code: 69528 Clinical Swallowing [id number]? TOTAL TIME: 20 Minutes ([id number])
[2023-08-01] MEDS: DAPTOmycin 500 MG in Normal Saline 50 ML 100 MG IVPB (10:37)
[2023-08-01 14:04] LABS: Anion Gap 8.5 mmol/L (3-11); BUN 23 mg/dL (7-18); CO2 25.5 mmol/L (21.0-32.0); CREATININE 1.1 mg/dL (0.70-1.30); Calcium 8.4 mg/dL (8.5-10.1); Chloride 107 mmol/L (98-107); Estimated GFR 74.04 (mL/min/1.73m2); Glucose 195 mg/dL (74-106); Potassium 3.1 mmol/L (3.5-5.1); Sodium 141 mmol/L (136-145)
[2023-08-01] MEDS: Scopolamine 1 MG/3 DAYS PATCH TD (14:55)
--- NOTE | 2023-08-01 15:03 | PT.INNT ---
PT Notes Visit Reasons: Severe sepsis,sacral ulcer Patient now on comfort measures per Dr. Trivedi. No skilled services needed.
--- NOTE | 2023-08-01 15:42 | W.PALPGNOTE ---
Date of service: 08/01/23 Time of Service: 15:42 Assessment and Plan Assessment and plan (1) Comfort measures only status: Status: Acute Assessment and plan: Unfortunately Isra has multiple multiple issues baseline. He now has sacral osteomyelitis, septic shock, and no reserve. I did help nursing to remove many of the unneeded lines such as IV fluids, cardiac monitoring, protective boots as he stated that he did not like them , wound VAC etc. Dr. Trivedi has already had conversations with family and has written orders. I did help nursing to execute these orders. I am assuming he will be moved to the floor soon. I do think that his brother and sister have made good decisions regarding his care (2) Anxiety and depression: Status: Chronic (3) Septic shock: Status: Resolved (4) Sacral osteomyelitis: Status: Acute (5) E. coli bacteremia: Status: Resolved Subjective Subjective Interval history since last seen: Isra Has been in and out of consciousness. He is sister and brother felt that he should be seeing him home due to his burden of infections and probable little chance for cure or improved life. Staff states that he would like lamberto ramirez and then the plan is to start him on comfort measures only. Kody is not able to tell me where he is , he gives very very vague answers. He smiles and laughs but is not able to answer any questions that I ask. Exam Narrative Exam Narrative: 68-year-old man lying in bed. He is not oriented. He smiles and laughs but it appears to be a diversion from the questions rather than jovialness. He does cooperate. His heart is regular. He does have the EKG monitoring on. Lungs unable to cooperate with exam Wound on the sacrum it is at least golf ball size and tunnels superiorly. 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 Objective Last Vital Signs Temp 97.0 F L 08/01/23 09:00 Pulse 69 08/01/23 13:42 Resp 16 08/01/23 13:42 BP 84/58 L 08/01/23 13:42 Pulse Ox 96 08/01/23 13:42 Laboratory Results - last 24 hr 07/30/23 07/30/23 07/31/23 04:45 05:40 20:13 WBC RBC Hgb Hct MCV MCH MCHC RDW Plt Count MPV Immature Gran % Neutrophils % Lymphocytes % Monocytes % Eosinophils % Basophils % Nucleated RBC % Absolute Neutrophils Absolute Lymphocytes Absolute Monocytes Absolute Eosinophils Absolute Basophils RBC Morphology Anisocytosis Sodium 149 H Potassium 3.8 Chloride 116 H Carbon Dioxide 23.7 Anion Gap 9.3 BUN 27 H Creatinine 1.0 Est GFR (CKD-EPI 2020) 83.01 Glucose 80 Serum Osmolality 325 H Calcium 8.4 L Magnesium Total Bilirubin AST ALT Alkaline Phosphatase C-Reactive Protein Total Protein Albumin Urine Osmolality 463 07/31/23 08/01/23 08/01/23 22:00 00:01 04:03 WBC RBC Hgb Hct MCV MCH MCHC RDW Plt Count MPV Immature Gran % Neutrophils % Lymphocytes % Monocytes % Eosinophils % Basophils % Nucleated RBC % Absolute Neutrophils Absolute Lymphocytes Absolute Monocytes Absolute Eosinophils Absolute Basophils RBC Morphology Anisocytosis Sodium Cancelled 150 H 149 H Potassium Cancelled 3.4 L 3.1 L Chloride Cancelled 115 H 114 H Carbon Dioxide Cancelled 25.5 25.2 Anion Gap Cancelled 9.5 9.8 BUN Cancelled 26 H 25 H Creatinine Cancelled 1.0 1.1 Est GFR (CKD-EPI 2020) Cancelled 83.01 74.04 Glucose Cancelled 76 108 H Serum Osmolality Calcium Cancelled 8.7 8.4 L Magnesium Total Bilirubin AST ALT Alkaline Phosphatase C-Reactive Protein Total Protein Albumin Urine Osmolality 08/01/23 08/01/23 08/01/23 05:25 08:02 13:42 WBC 10.05 RBC 2.81 L Hgb 8.4 L Hct 27.0 L MCV 96 H MCH 29.9 MCHC 31.1 L RDW 24.2 H Plt Count 119 L MPV 11.4 H Immature Gran % 0.7 Neutrophils % 78.4 Lymphocytes % 14.8 Monocytes % 5.8 Eosinophils % 0.2 Basophils % 0.1 Nucleated RBC % 0.0 Absolute Neutrophils 7.88 H Absolute Lymphocytes 1.49 Absolute Monocytes 0.58 Absolute Eosinophils 0.02 Absolute Basophils 0.01 RBC Morphology See Below Anisocytosis 2+ Sodium 147 H 144 141 Potassium 2.9 L* 3.6 3.1 L Chloride 112 H 111 H 107 Carbon Dioxide 26.4 26.0 25.5 Anion Gap 8.6 7.0 8.5 BUN 24 H 21 H 23 H Creatinine 1.0 1.0 1.1 Est GFR (CKD-EPI 2020) 83.01 83.01 74.04 Glucose 102 149 H 195 H Serum Osmolality Calcium 8.4 L 8.3 L 8.4 L Magnesium 2.1 Total Bilirubin 0.3 AST 28 ALT 23 Alkaline Phosphatase 74 C-Reactive Protein 1.44 H Total Protein 5.9 L Albumin 2.2 L Urine Osmolality
--- NOTE | 2023-08-01 16:26 | PGE_ITS ---
Date of Service Date of service: 08/01/23 Time of Service: 16:26 Assessment and Plan Assessment and plan (1) Comfort measures only status: Status: Acute (2) Anxiety and depression: Status: Chronic (3) Cor pulmonale (chronic): Status: Chronic (4) DVT (deep venous thrombosis): Status: Chronic Qualifiers: Affected thrombotic vein of extremity: unspecified vein of extremity Chronicity: chronic DVT location: lower extremity Laterality: bilateral Qualified Code(s): I82.503 - Chronic embolism and thrombosis of unspecified deep veins of lower extremity, bilateral (5) Hyperglycemia: Status: Resolved (6) Hypoadrenergic postural hypotension: Status: Acute (7) Dysphagia: Status: Acute Qualifiers: Dysphagia type: unspecified Qualified Code(s): R13.10 - Dysphagia, unspecified (8) Severe swallowing dysfunction: Status: Acute (9) GI bleed: Status: Chronic (10) Acute on chronic kidney failure: Status: Acute Qualifiers: Acute renal failure type: with acute tubular necrosis Chronic kidney disease stage: stage 3 (moderate) Chronic kidney disease stage 3 subtype: unspecified whether 3a or 3b Qualified Code(s): N17.0 - Acute kidney failure with tubular necrosis; N18.30 - Chronic kidney disease, stage 3 unspecified (11) Nephrotic syndrome: Status: Acute (12) Anemia due to GI blood loss: Status: Acute (13) Sacral osteomyelitis: Status: Acute (14) Stage IV pressure ulcer of right buttock: Status: Acute (15) Acute metabolic encephalopathy: Status: Acute (16) COPD (chronic obstructive pulmonary disease): Status: Chronic Qualifiers: COPD type: emphysema Emphysema type: centrilobular Qualified Code(s): J43.2 - Centrilobular emphysema (17) Pleural effusion: Status: Acute (18) Lymphedema of both lower extremities: Status: Chronic Subjective Subjective Interval history since last seen: -Patient is being transition to comfort measures only per guardian's wishes as he has very poor quality of life and his chances of survival are now -Speech evaluation appreciated. Patient is safe to do oral nutrition -Hemoglobin remained stable -Would continue wound VAC for patient comfort and to prevent further infections Will reevaluate at your request Objective Last Vital Signs Temp 36.1 C L 08/01/23 09:00 Pulse 69 08/01/23 13:42 Resp 16 08/01/23 13:42 BP 84/58 L 08/01/23 13:42 Pulse Ox 96 08/01/23 13:42 Laboratory Results - last 24 hr 07/30/23 07/30/23 07/31/23 04:45 05:40 20:13 WBC RBC Hgb Hct MCV MCH MCHC RDW Plt Count MPV Immature Gran % Neutrophils % Lymphocytes % Monocytes % Eosinophils % Basophils % Nucleated RBC % Absolute Neutrophils Absolute Lymphocytes Absolute Monocytes Absolute Eosinophils Absolute Basophils RBC Morphology Anisocytosis Sodium 149 H Potassium 3.8 Chloride 116 H Carbon Dioxide 23.7 Anion Gap 9.3 BUN 27 H Creatinine 1.0 Est GFR (CKD-EPI 2020) 83.01 Glucose 80 Serum Osmolality 325 H Calcium 8.4 L Magnesium Total Bilirubin AST ALT Alkaline Phosphatase C-Reactive Protein Total Protein Albumin Urine Osmolality 463 07/31/23 08/01/23 08/01/23 22:00 00:01 04:03 WBC RBC Hgb Hct MCV MCH MCHC RDW Plt Count MPV Immature Gran % Neutrophils % Lymphocytes % Monocytes % Eosinophils % Basophils % Nucleated RBC % Absolute Neutrophils Absolute Lymphocytes Absolute Monocytes Absolute Eosinophils Absolute Basophils RBC Morphology Anisocytosis Sodium Cancelled 150 H 149 H Potassium Cancelled 3.4 L 3.1 L Chloride Cancelled 115 H 114 H Carbon Dioxide Cancelled 25.5 25.2 Anion Gap Cancelled 9.5 9.8 BUN Cancelled 26 H 25 H Creatinine Cancelled 1.0 1.1 Est GFR (CKD-EPI 2020) Cancelled 83.01 74.04 Glucose Cancelled 76 108 H Serum Osmolality Calcium Cancelled 8.7 8.4 L Magnesium Total Bilirubin AST ALT Alkaline Phosphatase C-Reactive Protein Total Protein Albumin Urine Osmolality 08/01/23 08/01/23 08/01/23 05:25 08:02 13:42 WBC 10.05 RBC 2.81 L Hgb 8.4 L Hct 27.0 L MCV 96 H MCH 29.9 MCHC 31.1 L RDW 24.2 H Plt Count 119 L MPV 11.4 H Immature Gran % 0.7 Neutrophils % 78.4 Lymphocytes % 14.8 Monocytes % 5.8 Eosinophils % 0.2 Basophils % 0.1 Nucleated RBC % 0.0 Absolute Neutrophils 7.88 H Absolute Lymphocytes 1.49 Absolute Monocytes 0.58 Absolute Eosinophils 0.02 Absolute Basophils 0.01 RBC Morphology See Below Anisocytosis 2+ Sodium 147 H 144 141 Potassium 2.9 L* 3.6 3.1 L Chloride 112 H 111 H 107 Carbon Dioxide 26.4 26.0 25.5 Anion Gap 8.6 7.0 8.5 BUN 24 H 21 H 23 H Creatinine 1.0 1.0 1.1 Est GFR (CKD-EPI 2020) 83.01 83.01 74.04 Glucose 102 149 H 195 H Serum Osmolality Calcium 8.4 L 8.3 L 8.4 L Magnesium 2.1 Total Bilirubin 0.3 AST 28 ALT 23 Alkaline Phosphatase 74 C-Reactive Protein 1.44 H Total Protein 5.9 L Albumin 2.2 L Urine Osmolality Time Spent with Patient Time Spent with Patient: <25 minutes Time was spent: preparing to see the patient(eg.review tests), obtaining and/or reviewing separately otained hiistory, ordering medications,tests, procedures, referring, communicating with other health pediatric acute care unit nurse, indepentently interpreting results, counseling the patient and care coordination
[2023-08-01] MEDS: Glycopyrrolate 0.2 MG/1 ML VIAL IVP (16:52)
[2023-08-02] MEDS: LORazepam 2 MG/ML VIAL IV/SC (01:24)
[2023-08-02] MEDS: Normal Saline Flush 10 ML SYR IVP ×4 (01:24→22:30)
--- NOTE | 2023-08-02 08:58 | W.PM.PROGNOT ---
Date of Service Date of service: 08/02/23 Time of Service: 08:58 Assessment and Plan Assessment and plan (1) Comfort measures only status: Status: Acute Assessment and plan: Prolonged discussion was had with the patient's sister who is his DURABLE POWER OF SLD INCLUSION TEACHER as well as with his brother who was on the phone out of town living in [place]. They both understand that the patient had a poor quality of life, and that his current medical condition is extremely unlikely to improve. Therefore, they have elected for patient to be transitioned to comfort measures only. -Stop checking all vitals -Cluster care to maximize patient comfort -As needed morphine, Ativan, Haldol patient is in pain, anxious -All treatments including antibiotics have been discontinued -Please see below for medical course that led to patient's transition to [facility]AG [facility]OR[facility] (2) Septic shock: Status: Resolved Assessment and plan: -Patient met criteria for septic shock on admission with a white count of 14, and a respiratory rate greater than 20 in the setting of chronic stage IV decubitus ulcer, and with associated hypotension with mean arterial pressure persistently under 65 -He was started on cefepime and vancomycin and was on it for 3 days -now with multiple sources of infection including recurrent urinary tract infections with Pseudomonas and E. coli with subsequent E. coli bacteremia and also possible infection source from his chronic decubitus wound. -changed to Aztreonam on Monday 07/24 d/t puritic skin rash over trunk, face and arms -also added Flagyl on Monday 07/24 to improve coverage of mixed andrzej from his sacral wound. -no repeat wound culture was obtained at the time of his debridement, basing coverage on mixed polymicrobial andrzej and MRSA from wound cultures in May. -Urine culture this admission + for E coli and Pseudomonas, and blood culture w/ E coli. Repeat blood cultures 07/24 now now growth at 48 hr. -Wound cultures taken 07/29 result pending but gram stain shows rare GPC, no WBC -Now that he is off the N.E. drip, -midodrine and continue the hydrocortisone and fludrocortisone for another 24 hours and wean off the corticosteroids but continue the midodrine. -s/p 6 days of vancomycin -now on daptomycin D#4, D#6 aztreonam, D#7 flagyl -He completed 11 days over coverage for gram negative bacteremia and UTI. Both were stopped 4/13. 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 -all antibiotics and treatment has since been dicsontinued as noted above (3) Acute metabolic encephalopathy: Status: Acute Assessment and plan: -encephalopathy remains persistent problem although overall his mentation has improved over the course of this week,though his cognition is not back to baseline (4) Hypoglycemia: Status: Acute Assessment and plan: -had hypoglycemia in the 50's to 60's this morning and needed iv D50. (5) Dysphagia: Status: Acute Assessment and plan: -f/u SIGHT EFFECTS SPECIALIST consult, currently NPO d/t coughing spells after attempts to giving him meds or feedings. Qualifiers: Dysphagia type: unspecified Qualified Code(s): R13.10 - Dysphagia, unspecified (6) Diastolic dysfunction: Assessment and plan: -patient remains hypervolemic, CXR done 07/29 shows bilateral pleural effusions and alveolar process, clinically not pneumonia (no fever or leukocytosis) -likely fluid accumulation over last several days in resuscitation of his sepsis and subsequent treatment of his hypernatremia w/ runs of D5W (which I stopped last night although I also had him on lasix concomittantly. -continue his lasix for now but will continue to monitor his BMP. (7) Anemia due to GI blood loss: Status: Acute Assessment and plan: -no reported melena overnight. -Hb 8.7 gm, unable to tolerate carafate, however remains on iv protonix. (8) Sacral decubitus ulcer: Status: Resolved Assessment and plan: -s/p debridement on 07/24. surgery has now signed off but have given wound dressing orders. Qualifiers: Pressure injury stage: stage 4 Qualified Code(s): L89.154 - Pressure ulcer of sacral region, stage 4 (9) Stage IV pressure ulcer of right buttock: Status: Acute (10) E. coli bacteremia: Status: Resolved Assessment and plan: he has completed 11 days of parenteral antibiotics (cefepime/aztreonam) which is sufficient and his bacteremia has cleared. (11) Complicated UTI (urinary tract infection): Status: Acute Assessment and plan: renal US did not show any obstruction or stones, SPC changed by surgery on admission (12) Acute on chronic kidney failure: Status: Acute Assessment and plan: continues to improve. good urine output and creatinine has improved (currently 1.2 down from high of 3.2). Hypernatremia corrected overnight. will continue to monitor BMP closely while on lasix. Qualifiers: Acute renal failure type: with acute tubular necrosis Chronic kidney disease stage: stage 3 (moderate) Chronic kidney disease stage 3 subtype: unspecified whether 3a or 3b Qualified Code(s): N17.0 - Acute kidney failure with tubular necrosis; N18.30 - Chronic kidney disease, stage 3 unspecified (13) Hypokalemia: Status: Resolved Assessment and plan: could not tolerate oral potassium so given iv replacement this morning. (14) Hypomagnesemia: Status: Acute Assessment and plan: Mg 2.1 today Subjective Subjective Interval history since last seen: Patient appears to be resting comfortably and in no acute distress at this time Exam Narrative Exam Narrative: Chronically ill-appearing gentleman laying in bed in no acute distress, nonlabored breathing, is awake and does respond to verbal stimuli Objective Last Vital Signs Temp 97.0 F L 08/01/23 09:00 Pulse 69 08/01/23 13:42 Resp 16 08/01/23 13:42 BP 84/58 L 08/01/23 13:42 Pulse Ox 96 08/01/23 13:42 Laboratory Results - last 24 hr 07/31/23 07/31/23 07/31/23 12:49 13:27 13:54 Sodium Potassium Chloride Carbon Dioxide Anion Gap BUN Creatinine Est GFR (CKD-EPI 2020) Glucose Calcium Cortisol 19 Cortisol 30 Minute 21 Cortisol 60 Minute 21 08/01/23 13:42 Sodium 141 Potassium 3.1 L Chloride 107 Carbon Dioxide 25.5 Anion Gap 8.5 BUN 23 H Creatinine 1.1 Est GFR (CKD-EPI 2020) 74.04 Glucose 195 H Calcium 8.4 L Cortisol Cortisol 30 Minute Cortisol 60 Minute Time Spent with Patient Time Spent with Patient: >50 minutes Time was spent: preparing to see the patient(eg.review tests), obtaining and/or reviewing separately otained hiistory, ordering medications,tests, procedures, referring, communicating with other health team primary care physician, indepentently interpreting results, counseling the patient and care coordination
--- NOTE | 2023-08-02 09:33 | PDOC.CMPRO ---
Date of service: 08/02/23 Time of Service: 09:33 Care Management Progress Note Progress Note Text Progress Note Text: S/O: Isra was sitting up in bed when CM met with him. His sister Mariluz was visiting and participated in the conversation. Isra was awake and alert and recognized CM and his sister. He was able to answer simple questions appropriately, although he is still somewhat confused. Isra verbalized that he was concerned that all of his possessions were being auctioned off. Both Mariluz and CM assured Isra that all of his belongings were still at his apartment at [facility]. He appeared relieved and stated, then I could just go back there? There have been several conversations about comfort care in the past day or two and Isra does not seem to totally understand what that means. Mariluz asked for a cribbage board as Isra had asked to play cribbage with her yesterday. A cribbage board was provided by CM and Mariluz planned to attempt to play a game with him. Clinically, Isra appears comfortable. He has only required one dose of Morphine 1mg today. Isra did state that his breathing was a little difficult, so nasal oxygen was restarted at 2L/min. A: Isra is a 68 year old man admitted on 07/22/23 with sepsis P:Anticipate Isra will return to [facility] when medically stable, unless he is made comfort measures. CM will follow and continue to support Isra and his family and assess for discharge needs. SDOH(Care Management) Screening Will the Patient Participate in the Screening?: Unable to obtain In the past 12 months, have you had to go without electric, gas, oil or water in your home?: no Have you or anyone in your house had to go without enough food to eat?: no Has lack of transportation kept you from medical appointments or from doing things needed for daily living?: yes Has anyone in your support network made you feel unsafe for any reason?: no Health Related Social Needs Health related social needs: transportation insecurity(Z59.82)
[2023-08-02 10:17] LABS: Transferrin 121 mg/dL (201-352)
[2023-08-02] MEDS: MORPHine 2 MG/ML SYR 1 MG IVP (10:49)
[2023-08-02] MEDS: MORPHine 4 MG/ML SYR IV/SC ×2 (17:58→22:30)
[2023-08-03] MEDS: LORazepam 2 MG/ML VIAL IV/SC (03:29)
[2023-08-03] MEDS: Normal Saline Flush 10 ML SYR IVP ×3 (07:45→21:00)
--- NOTE | 2023-08-03 09:31 | W.PM.PROGNOT ---
Date of Service Date of service: 08/03/23 Time of Service: 09:32 Assessment and Plan Assessment and plan (1) Comfort measures only status: Status: Acute Assessment and plan: Prolonged discussion was had with the patient's sister who is his DURABLE POWER OF HAIR SPRING CUTTER as well as with his brother who was on the phone out of town living in [place]. They both understand that the patient had a poor quality of life, and that his current medical condition is extremely unlikely to improve. Therefore, they have elected for patient to be transitioned to comfort measures only. -Stop checking all vitals -Cluster care to maximize patient comfort -As needed morphine, Ativan, Haldol patient is in pain, anxious -All treatments including antibiotics have been discontinued -Please see below for medical course that led to patient's transition to COATER OPERATOR INSULATION BOARD (2) Septic shock: Status: Resolved Assessment and plan: -Patient met criteria for septic shock on admission with a white count of 14, and a respiratory rate greater than 20 in the setting of chronic stage IV decubitus ulcer, and with associated hypotension with mean arterial pressure persistently under 65 -He was started on cefepime and vancomycin and was on it for 3 days -now with multiple sources of infection including recurrent urinary tract infections with Pseudomonas and E. coli with subsequent E. coli bacteremia and also possible infection source from his chronic decubitus wound. -changed to Aztreonam on Monday 07/24 d/t puritic skin rash over trunk, face and arms -also added Flagyl on Monday 07/24 to improve coverage of mixed andrzej from his sacral wound. -no repeat wound culture was obtained at the time of his debridement, basing coverage on mixed polymicrobial andrzej and MRSA from wound cultures in May. -Urine culture this admission + for E coli and Pseudomonas, and blood culture w/ E coli. Repeat blood cultures 07/24 now now growth at 48 hr. -Wound cultures taken 07/29 result pending but gram stain shows rare GPC, no WBC -Now that he is off the N.E. drip, -midodrine and continue the hydrocortisone and fludrocortisone for another 24 hours and wean off the corticosteroids but continue the midodrine. -s/p 6 days of vancomycin -now on daptomycin D#4, D#6 aztreonam, D#7 flagyl -He completed 11 days over coverage for gram negative bacteremia and UTI. Both were stopped 4/13. 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 -all antibiotics and treatment has since been dicsontinued as noted above (3) Acute metabolic encephalopathy: Status: Acute Assessment and plan: -encephalopathy remains persistent problem although overall his mentation has improved over the course of this week,though his cognition is not back to baseline (4) Hypoglycemia: Status: Acute Assessment and plan: -had hypoglycemia in the 50's to 60's this morning and needed iv D50. (5) Dysphagia: Status: Acute Assessment and plan: -f/u GENERAL PRODUCTION LABORER consult, currently NPO d/t coughing spells after attempts to giving him meds or feedings. Qualifiers: Dysphagia type: unspecified Qualified Code(s): R13.10 - Dysphagia, unspecified (6) Diastolic dysfunction: Assessment and plan: -patient remains hypervolemic, CXR done 07/29 shows bilateral pleural effusions and alveolar process, clinically not pneumonia (no fever or leukocytosis) -likely fluid accumulation over last several days in resuscitation of his sepsis and subsequent treatment of his hypernatremia w/ runs of D5W (which I stopped last night although I also had him on lasix concomittantly. -continue his lasix for now but will continue to monitor his BMP. (7) Anemia due to GI blood loss: Status: Acute Assessment and plan: -no reported melena overnight. -Hb 8.7 gm, unable to tolerate carafate, however remains on iv protonix. (8) Sacral decubitus ulcer: Status: Resolved Assessment and plan: -s/p debridement on 07/24. surgery has now signed off but have given wound dressing orders. Qualifiers: Pressure injury stage: stage 4 Qualified Code(s): L89.154 - Pressure ulcer of sacral region, stage 4 (9) Stage IV pressure ulcer of right buttock: Status: Acute (10) E. coli bacteremia: Status: Resolved Assessment and plan: he has completed 11 days of parenteral antibiotics (cefepime/aztreonam) which is sufficient and his bacteremia has cleared. (11) Complicated UTI (urinary tract infection): Status: Acute Assessment and plan: renal US did not show any obstruction or stones, SPC changed by surgery on admission (12) Acute on chronic kidney failure: Status: Acute Assessment and plan: continues to improve. good urine output and creatinine has improved (currently 1.2 down from high of 3.2). Hypernatremia corrected overnight. will continue to monitor BMP closely while on lasix. Qualifiers: Acute renal failure type: with acute tubular necrosis Chronic kidney disease stage: stage 3 (moderate) Chronic kidney disease stage 3 subtype: unspecified whether 3a or 3b Qualified Code(s): N17.0 - Acute kidney failure with tubular necrosis; N18.30 - Chronic kidney disease, stage 3 unspecified (13) Hypokalemia: Status: Resolved Assessment and plan: could not tolerate oral potassium so given iv replacement this morning. (14) Hypomagnesemia: Status: Acute Assessment and plan: Mg 2.1 today Subjective Subjective Interval history since last seen: Patient appears to be resting comfortably and in no acute distress at this time Exam Narrative Exam Narrative: Chronically ill-appearing gentleman laying in bed in no acute distress, nonlabored breathing, is awake and does respond to verbal stimuli Objective Last Vital Signs Temp 97.0 F L 08/01/23 09:00 Pulse 69 08/01/23 13:42 Resp 16 08/01/23 13:42 BP 84/58 L 08/01/23 13:42 Pulse Ox 96 08/01/23 13:42 Laboratory Results - last 24 hr 07/31/23 04:00 Transferrin 121 L Time Spent with Patient Time Spent with Patient: >50 minutes Time was spent: preparing to see the patient(eg.review tests), obtaining and/or reviewing separately otained hiistory, ordering medications,tests, procedures, referring, communicating with other health healthcare advisory services manager, indepentently interpreting results, counseling the patient and care coordination
--- NOTE | 2023-08-03 09:47 | CMPROGNOTE_ITS ---
Date of service: 08/03/23 Time of Service: 09:47 Care Management Progress Note Progress Note Text Progress Note Text: S/O: Isra was sitting up in bed when CM met with him. He was awake and alert and engaged well with CM. Isra had a visitor from the [place] who sees him at home. They seemed to be having a good conversation when CM arrived. Isra's sister Mariluz had been visiting earlier however she had to leave to run an errand. She requested to meet with CM but left before CM was able to see her. CM called her and left a message and will be available to meet if she returns this afternoon. Mariluz left CM a voicemail indicating that she will be returning home tomorrow and needed a letter for her FMLA, but did not specify what the letter needed to include. A: Isra is a 68 year old man admitted on 07/22/23 with sepsis P:Isra has been placed on comfort measures. It is unclear if he will return to [facility] or discharge home. He does not appear imminent. CM will follow and continue to support Isra and his family and assess for disch arge needs. SDOH(Care Management) Screening Will the Patient Participate in the Screening?: Unable to obtain In the past 12 months, have you had to go without electric, gas, oil or water in your home?: no Have you or anyone in your house had to go without enough food to eat?: no Has lack of transportation kept you from medical appointments or from doing things needed for daily living?: yes Has anyone in your support network made you feel unsafe for any reason?: no Health Related Social Needs Health related social needs: transportation insecurity(Z59.82)
[2023-08-03] MEDS: MORPHine 4 MG/ML SYR IV/SC (18:47)
[2023-08-04] MEDS: LORazepam 2 MG/ML VIAL IV/SC (01:28)
[2023-08-04] MEDS: Normal Saline Flush 10 ML SYR IVP ×2 (08:34→21:01)
--- NOTE | 2023-08-04 08:56 | CMPROGNOTE_ITS ---
Date of service: 08/04/23 Time of Service: 08:56 Care Management Progress Note Progress Note Text Progress Note Text: S/O: Isra was sitting up in bed when CM met with him. He had been dozing and was slow to respond to questions. Isra's sister Mariluz left this morning to return to [place]. She asked that Isra be transferred to a different [facility] as she feels the care at [facility] was inadequate to meet his needs. CM requested a transfer to [facility], however he will need to return to [facility] if that is not possible. CM suggested that Mariluz speak to Paola Major Isra's aboriginal community council member, who can assist with the process once Isra is d ischarged. A: Isra is a 68 year old man admitted on 07/22/23 with sepsis P:Isra has been placed on comfort measures. It is unclear if he will return to [facility] or discharge home. He does not appear imminent. CM will follow and continue to support Isra and his family and assess for discharge needs. SDOH(Care Management) Screening Will the Patient Participate in the Screening?: Unable to obtain In the past 12 months, have you had to go without electric, gas, oil or water in your home?: no Have you or anyone in your house had to go without enough food to eat?: no Has lack of transportation kept you from medical appointments or from doing things needed for daily living?: yes Has anyone in your support network made you feel unsafe for any reason?: no Health Related Social Needs Health related social needs: transportation insecurity(Z59.82)
[2023-08-04] MEDS: Acetaminophen 325 MG TAB PO (10:09)
[2023-08-04] MEDS: Ketorolac 10 MG TAB PO ×2 (12:35→17:56)
[2023-08-04] MEDS: Furosemide 20 MG TAB PO (12:36)
[2023-08-04] MEDS: Scopolamine 1 MG/3 DAYS PATCH TD (12:39)
[2023-08-04] MEDS: Gabapentin 600 MG TAB PO (13:44)
--- NOTE | 2023-08-04 17:04 | PGE_ITS ---
Date of Service Date of service: 08/04/23 Time of Service: 17:05 Assessment and Plan Assessment and plan (1) Comfort measures only status: Status: Acute Assessment and plan: Prolonged discussion was had with the patient's sister who is his DURABLE POWER OF DENTAL SCHEDULER as well as with his brother who was on the phone out of town living in [place]. They both understand that the patient had a poor quality of life, and that his current medical condition is extremely unlikely to improve. Therefore, they have elected for patient to be transitioned to comfort measures only. -Stop checking all vitals -Cluster care to maximize patient comfort -As needed morphine, Ativan, Haldol patient is in pain, anxious -All treatments including antibiotics have been discontinued -Please see below for medical course that led to patient's transition to CURRICULUM FACILITATOR (2) Septic shock: Status: Resolved Assessment and plan: -Patient met criteria for septic shock on admission with a white count of 14, and a respiratory rate greater than 20 in the setting of chronic stage IV decubitus ulcer, and with associated hypotension with mean arterial pressure persistently under 65 -He was started on cefepime and vancomycin and was on it for 3 days -now with multiple sources of infection including recurrent urinary tract infections with Pseudomonas and E. coli with subsequent E. coli bacteremia and also possible infection source from his chronic decubitus wound. -changed to Aztreonam on Monday 07/24 d/t puritic skin rash over trunk, face and arms -also added Flagyl on Monday 07/24 to improve coverage of mixed andrzej from his sacral wound. -no repeat wound culture was obtained at the time of his debridement, basing coverage on mixed polymicrobial andrzej and MRSA from wound cultures in May. -Urine culture this admission + for E coli and Pseudomonas, and blood culture w/ E coli. Repeat blood cultures 07/24 now now growth at 48 hr. -Wound cultures taken 07/29 result pending but gram stain shows rare GPC, no WBC -Now that he is off the N.E. drip, -midodrine and continue the hydrocortisone and fludrocortisone for another 24 hours and wean off the corticosteroids but continue the midodrine. -s/p 6 days of vancomycin -now on daptomycin D#4, D#6 aztreonam, D#7 flagyl -He completed 11 days over coverage for gram negative bacteremia and UTI. Both were stopped 4/13. 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 -all antibiotics and treatment has since been dicsontinued as noted above (3) Acute metabolic encephalopathy: Status: Acute Assessment and plan: -encephalopathy remains persistent problem although overall his mentation has improved over the course of this week,though his cognition is not back to baseline (4) Hypoglycemia: Status: Acute Assessment and plan: -had hypoglycemia in the 50's to 60's this morning and needed iv D50. (5) Dysphagia: Status: Acute Assessment and plan: -f/u LOGGING ASSISTANT consult, currently NPO d/t coughing spells after attempts to giving him meds or feedings. Qualifiers: Dysphagia type: unspecified Qualified Code(s): R13.10 - Dysphagia, unspecified (6) Diastolic dysfunction: Assessment and plan: -patient remains hypervolemic, CXR done 07/29 shows bilateral pleural effusions and alveolar process, clinically not pneumonia (no fever or leukocytosis) -likely fluid accumulation over last several days in resuscitation of his sepsis and subsequent treatment of his hypernatremia w/ runs of D5W (which I stopped last night although I also had him on lasix concomittantly. -continue his lasix for now but will continue to monitor his BMP. (7) Anemia due to GI blood loss: Status: Acute Assessment and plan: -no reported melena overnight. -Hb 8.7 gm, unable to tolerate carafate, however remains on iv protonix. (8) Sacral decubitus ulcer: Status: Resolved Assessment and plan: -s/p debridement on 07/24. surgery has now signed off but have given wound dressing orders. Qualifiers: Pressure injury stage: stage 4 Qualified Code(s): L89.154 - Pressure ulcer of sacral region, stage 4 (9) Stage IV pressure ulcer of right buttock: Status: Acute (10) E. coli bacteremia: Status: Resolved Assessment and plan: he has completed 11 days of parenteral antibiotics (cefepime/aztreonam) which is sufficient and his bacteremia has cleared. (11) Complicated UTI (urinary tract infection): Status: Acute Assessment and plan: renal US did not show any obstruction or stones, SPC changed by surgery on admission (12) Acute on chronic kidney failure: Status: Acute Assessment and plan: continues to improve. good urine output and creatinine has improved (currently 1.2 down from high of 3.2). Hypernatremia corrected overnight. will continue to monitor BMP closely while on lasix. Qualifiers: Acute renal failure type: with acute tubular necrosis Chronic kidney disease stage: stage 3 (moderate) Chronic kidney disease stage 3 subtype: unspecified whether 3a or 3b Qualified Code(s): N17.0 - Acute kidney failure with tubular necrosis; N18.30 - Chronic kidney disease, stage 3 unspecified (13) Hypokalemia: Status: Resolved Assessment and plan: could not tolerate oral potassium so given iv replacement this morning. (14) Hypomagnesemia: Status: Acute Assessment and plan: Mg 2.1 today Subjective Subjective Interval history since last seen: Patient appears to be resting comfortably and in no acute distress at this time Exam Narrative Exam Narrative: Chronically ill-appearing gentleman laying in bed in no acute distress, nonlabored breathing, is awake and does respond to verbal stimuli Objective Last Vital Signs Temp 97.0 F L 08/01/23 09:00 Pulse 69 08/01/23 13:42 Resp 16 08/01/23 13:42 BP 84/58 L 08/01/23 13:42 Pulse Ox 96 08/01/23 13:42 Time Spent with Patient Time Spent with Patient: >50 minutes Time was spent: preparing to see the patient(eg.review tests), obtaining and/or reviewing separately otained hiistory, ordering medications,tests, procedures, referring, communicating with other health career services coordinator, indepentently interpreting results, counseling the patient and care coordination
--- NOTE | 2023-08-04 18:18 | NUR.NOTE ---
Pt has asked several times today if he has any company coming. His sister and her SO were here for an hour earlier. No phone calls for pt. Nursing Note:
[2023-08-04] MEDS: MORPHine 4 MG/ML SYR IV/SC (21:01)
--- NOTE | 2023-08-04 21:42 | PDOC.EEG_ITS ---
Neurology EEG EEG: [facility] Department of Neurology INPATIENT EEG REPORT Date of Recordin08/01/23 Interpreting Physician: Dr. Juanita Coffman Reason for study: Mr. Mao is admitted with sepsis secondary to decubitus ulcer, with waxing/waning mental status concerning for seizure activity. METHODS: A 21 channel digitized electroencephalogram was performed in the [facility] Med/Surg Floor or ICU. The 10/20 international system of electrode placement was used and bipolar and referential electrode montages were recorded. In addition to EEG the patient was monitored for EKG and lateral/vertical eye movements. Activation procedures of photic stimulation and hyperventilation were performed if applicable. Video was used during activation procedures and during events where applicable. The duration of the recording was 30 minutes. DESCRIPTION OF EEG: The patient was noted to be encephalopathic during the recording - there were no obvious sleep structures. No discernible PDR was seen. There was a normal anterior-posterior voltage gradient. There was diffuse non-rhythmic delta and theta activity throughout the recording. Activating Procedures: Photic stimulation was performed which produced a symmetrical posterior driving response at various flash frequencies. Hyperventilation was not performed. EKG: EKG revealed normal sinus rhythm that was irregular at times with pauses up to 1.5seconds. INTERPRETATION: This EEG is abnormal due to generalized non-rhythmic slowing throughout. EKG as above. PRIOR EEG: none CLINICAL CORRELATION: The background slowing is suggestive of a mild diffuse cerebral encephalopathy of broad differential including toxic-metabolic etiology. No focal regions of cerebral dysfunction or epileptiform activity was present. Clinical correlation is advised. Juanita Coffman MD Date of service: 08/01/23
[2023-08-05] MEDS: Tiotropium/Olodaterol 10 PUFF INHALER 2 PUFF IH (08:45)
[2023-08-05] MEDS: Gabapentin 600 MG TAB PO (09:47)
[2023-08-05] MEDS: Normal Saline Flush 10 ML SYR IVP (09:48)
--- NOTE | 2023-08-05 11:17 | W.PM.PROGNOT ---
Date of Service Date of service: 08/05/23 Time of Service: 11:17 Assessment and Plan Assessment and plan (1) Comfort measures only status: Status: Acute Assessment and plan: Prolonged discussion was had with the patient's sister who is his DURABLE POWER OF OFFICE MACHINE MECHANIC as well as with his brother who was on the phone out of town living in [place]. They both understand that the patient had a poor quality of life, and that his current medical condition is extremely unlikely to improve. Therefore, they have elected for patient to be transitioned to comfort measures only. -Stop checking all vitals -Cluster care to maximize patient comfort -As needed morphine, Ativan, Haldol patient is in pain, anxious -All treatments including antibiotics have been discontinued -Please see below for medical course that led to patient's transition to SENIOR SYSTEMS ARCHITECT (2) Septic shock: Status: Resolved Assessment and plan: -Patient met criteria for septic shock on admission with a white count of 14, and a respiratory rate greater than 20 in the setting of chronic stage IV decubitus ulcer, and with associated hypotension with mean arterial pressure persistently under 65 -He was started on cefepime and vancomycin and was on it for 3 days -now with multiple sources of infection including recurrent urinary tract infections with Pseudomonas and E. coli with subsequent E. coli bacteremia and also possible infection source from his chronic decubitus wound. -changed to Aztreonam on Monday 07/24 d/t puritic skin rash over trunk, face and arms -also added Flagyl on Monday 07/24 to improve coverage of mixed andrzej from his sacral wound. -no repeat wound culture was obtained at the time of his debridement, basing coverage on mixed polymicrobial andrzej and MRSA from wound cultures in May. -Urine culture this admission + for E coli and Pseudomonas, and blood culture w/ E coli. Repeat blood cultures 07/24 now now growth at 48 hr. -Wound cultures taken 07/29 result pending but gram stain shows rare GPC, no WBC -Now that he is off the N.E. drip, -midodrine and continue the hydrocortisone and fludrocortisone for another 24 hours and wean off the corticosteroids but continue the midodrine. -s/p 6 days of vancomycin -now on daptomycin D#4, D#6 aztreonam, D#7 flagyl -He completed 11 days over coverage for gram negative bacteremia and UTI. Both were stopped 4/13. 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 -all antibiotics and treatment has since been dicsontinued as noted above (3) Acute metabolic encephalopathy: Status: Acute Assessment and plan: -encephalopathy remains persistent problem although overall his mentation has improved over the course of this week,though his cognition is not back to baseline (4) Hypoglycemia: Status: Acute Assessment and plan: -had hypoglycemia in the 50's to 60's this morning and needed iv D50. (5) Dysphagia: Status: Acute Assessment and plan: -f/u PRACTICE BILLING ASSOCIATE consult, currently NPO d/t coughing spells after attempts to giving him meds or feedings. Qualifiers: Dysphagia type: unspecified Qualified Code(s): R13.10 - Dysphagia, unspecified (6) Diastolic dysfunction: Assessment and plan: -patient remains hypervolemic, CXR done 07/29 shows bilateral pleural effusions and alveolar process, clinically not pneumonia (no fever or leukocytosis) -likely fluid accumulation over last several days in resuscitation of his sepsis and subsequent treatment of his hypernatremia w/ runs of D5W (which I stopped last night although I also had him on lasix concomittantly. -continue his lasix for now but will continue to monitor his BMP. (7) Anemia due to GI blood loss: Status: Acute Assessment and plan: -no reported melena overnight. -Hb 8.7 gm, unable to tolerate carafate, however remains on iv protonix. (8) Sacral decubitus ulcer: Status: Resolved Assessment and plan: -s/p debridement on 07/24. surgery has now signed off but have given wound dressing orders. Qualifiers: Pressure injury stage: stage 4 Qualified Code(s): L89.154 - Pressure ulcer of sacral region, stage 4 (9) Stage IV pressure ulcer of right buttock: Status: Acute (10) E. coli bacteremia: Status: Resolved Assessment and plan: he has completed 11 days of parenteral antibiotics (cefepime/aztreonam) which is sufficient and his bacteremia has cleared. (11) Complicated UTI (urinary tract infection): Status: Acute Assessment and plan: renal US did not show any obstruction or stones, SPC changed by surgery on admission (12) Acute on chronic kidney failure: Status: Acute Assessment and plan: continues to improve. good urine output and creatinine has improved (currently 1.2 down from high of 3.2). Hypernatremia corrected overnight. will continue to monitor BMP closely while on lasix. Qualifiers: Acute renal failure type: with acute tubular necrosis Chronic kidney disease stage: stage 3 (moderate) Chronic kidney disease stage 3 subtype: unspecified whether 3a or 3b Qualified Code(s): N17.0 - Acute kidney failure with tubular necrosis; N18.30 - Chronic kidney disease, stage 3 unspecified (13) Hypokalemia: Status: Resolved Assessment and plan: could not tolerate oral potassium so given iv replacement this morning. (14) Hypomagnesemia: Status: Acute Assessment and plan: Mg 2.1 today Subjective Subjective Interval history since last seen: Patient appears to be resting comfortably and in no acute distress at this time Exam Narrative Exam Narrative: Chronically ill-appearing gentleman laying in bed in no acute distress, nonlabored breathing, is awake, alert, oritned to person and place and now appears to understand her current medical situation and that he is dying Objective Last Vital Signs Temp 97.0 F L 08/01/23 09:00 Pulse 69 08/01/23 13:42 Resp 16 08/01/23 13:42 BP 84/58 L 08/01/23 13:42 Pulse Ox 96 08/01/23 13:42 Time Spent with Patient Time Spent with Patient: >50 minutes Time was spent: preparing to see the patient(eg.review tests), obtaining and/or reviewing separately otained hiistory, ordering medications,tests, procedures, referring, communicating with other health direct care professional, indepentently interpreting results, counseling the patient and care coordination
--- NOTE | 2023-08-05 11:43 | DSE_ITS ---
Date of service: 08/05/23 Time of Service: 11:59 DS: Diagnosis Discharge Diagnosis (1) Comfort measures only status: Status: Acute Asessment and Plan: Prolonged discussion was had with the patient's sister who is his DURABLE POWER OF TUMBLER DYEING MACHINE OPERATOR as well as with his brother who was on the phone out of town living in [place]. They both understand that the patient had a poor quality of life, and that his current medical condition is extremely unlikely to improve. Therefore, they have elected for patient to be transitioned to comfort measures only. 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 coli with subsequent E. coli bacteremia and also possible infection source from his chronic decubitus wound. -changed to Aztreonam on Monday 07/24 d/t puritic skin rash over trunk, face and arms -also added Flagyl on Monday 07/24 to improve coverage of mixed andrzej from his sacral wound. -no repeat wound culture was obtained at the time of his debridement, basing coverage on mixed polymicrobial andrzej and MRSA from wound cultures in May. -Urine culture this admission + for E coli and Pseudomonas, and blood culture w/ E coli. Repeat blood cultures 07/24 now now growth at 48 hr. -Wound cultures taken 07/29 result pending but gram stain shows rare GPC, no WBC -Now that he is off the N.E. drip, -midodrine and continue the hydrocortisone and fludrocortisone for another 24 hours and wean off the corticosteroids but continue the midodrine. -s/p 6 days of vancomycin -now on daptomycin D#4, D#6 aztreonam, D#7 flagyl -He completed 11 days over coverage for gram negative bacteremia and UTI. Both were stopped 4/13. 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 -all antibiotics and treatment has since been dicsontinued as noted above (3) Acute metabolic encephalopathy: Status: Acute Asessment and Plan: -encephalopathy remains persistent problem although overall his mentation has improved over the course of this week,though his cognition is not back to baseline (4) Hypoglycemia: Status: Acute (5) Dysphagia: Status: Acute (6) Diastolic dysfunction: (7) Anemia due to GI blood loss: Status: Acute (8) Sacral decubitus ulcer: Status: Resolved Asessment and Plan: -s/p debridement on 07/24. surgery has now signed off but have given wound dressing orders. (9) Stage IV pressure ulcer of right buttock: Status: Acute (10) E. coli bacteremia: Status: Resolved (11) Complicated UTI (urinary tract infection): Status: Acute (12) Acute on chronic kidney failure: Status: Acute (13) Hypokalemia: Status: Resolved (14) Hypomagnesemia: Status: Acute Discharge Plan Disposition Patient Disposition: Custodial Facility(SNF) Condition: Fair Discharge Details Reason For Visit: Severe sepsis,sacral ulcer Admit Date/Time: 07/22/23 14:35 Admit Provider: Michel Trivedi Attending Provider: Michel Trivedi Primary Care Provider: Renan Garcia Hospital Course Hospital Course: Patient initially admitted to the hospital with septic shock secondary to chronic sacral wound. He had surgical debridement and wound VAC placed shortly after admission, however despite maximal antibiotic therapy patient's status significantly declined. He was persistently somnolent and unable to participate in decisions of his care going forward. His sister came from out [facility] who is his DURABLE POWER OF TUMBLER DYEING MACHINE OPERATOR and ultimately on the morning of 08/01/2023 decision was made for patient to transition to comfort measures only. However, 08/03/2023 patient's mental status significantly improved and he was awake, alert and oriented to person, place and situation. 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 Home Meds and New Rx's Prescriptions: New furosemide 20 mg Tablet 20 mg PO DAILY PRN PRN (Reason: swell) Qty: 30 0RF gabapentin 600 mg Tablet 600 mg PO TID Qty: 120 0RF Continued Stiolto Respimat 2.5-2.5 mcg/actuation mist 2 puff inhalation DAILY Qty: 4 12RF docusate sodium [Colace] 100 mg capsule 100 mg PO BID Qty: 60 0RF ammonium lactate 12 % Lotion 1 applic topical BID Qty: 400 1RF Rx Instructions: Apply to both arms Discontinued fluocinonide 0.05 % cream 1 applic topical BID Qty: 60 3RF Rx Instructions: Apply to arms and abdomen metolazone 2.5 mg tablet 2.5 mg PO DAILY PRN (Reason: Fluid overload) Qty: 20 0RF Rx Instructions: Most call MD for permission to use when weight is over 216 at home torsemide 20 mg tablet 40 mg PO TID Qty: 540 3RF miconazole nitrate [Antifungal (miconazole)] 2 % cream 1 applic topical DAILY Qty: 28 6RF Rx Instructions: Apply under skin folds and to any affected area cholecalciferol (vitamin D3) 10 mcg (400 unit) tablet 20 mcg PO DAILY Qty: 180 3RF Rx Instructions: 800 U daily, per [facility] discharge dated 10/04/19 [facility] FiberCon 625 mg tablet 1,250 mg PO DAILY Qty: 90 3RF spironolactone 25 mg tablet 25 mg PO DAILY Qty: 90 3RF ferrous sulfate 325 mg (65 mg iron) tablet See Rx Instructions .ROUTE .COMPLEX Qty: 28 11RF Dose Instruction: TAKE 1 TABLET BY MOUTH DAILY Rx Instructions: TAKE 1 TABLET BY MOUTH DAILY pregabalin [Lyrica] 75 mg capsule 75 mg PO BID Qty: 180 3RF ascorbic acid (vitamin C) [Vitamin C] 500 mg tablet See Rx Instructions .ROUTE .COMPLEX Qty: 84 12RF Dose Instruction: TAKE 1 TABLET BY MOUTH THREE TIMES A DAY (DOSE INCREASE 07/09/21) Rx Instructions: TAKE 1 TABLET BY MOUTH THREE TIMES A DAY (DOSE INCREASE 07/09/21) apixaban 5 mg tablet 10 mg PO BID Qty: 100 0RF Rx Instructions: 10 mg twice a day for 7 days, then 5 mg twice a day potassium chloride 20 mEq tablet,ER particles/crystals 20 meq PO DAILY zinc oxide 20 % Ointment 1 applic topical PRN PRNQty: 56 0RF Patient Comments: APPLY TOPICALLY TO BUTTOCKS ONCE DAILY NEEDED clotrimazole 1 % Cream 1 applic topical PRN PRNQty: 45 0RF Rx Instructions: apply to excoriated area on buttock vits A and D-white pet-lanolin Ointment 1 applic topical PRN PRNQty: 56 0RF Rx Instructions: Apply to excoriated area on buttock No Action (DME) underpads [Bed Underpads] Pad See Rx Instructions .ROUTE .MEDSUPPLY Qty: 40 12RF Rx Instructions: As directed, for diarrhea or urinary leakage (DME) disposable gloves [Nitrile Exam Gloves] Misc See Rx Instructions .Route Qty: 100 12RF Rx Instructions: As directed, to change urinary pads and diapers (DME) Pull ups XXL See Rx Instructions .Route .MEDSUPPLY Qty: 60 11RF Rx Instructions: As directed (DME) nebulizers Misc See Rx Instructions .ROUTE .MEDSUPPLY Qty: 1 0RF Rx Instructions: As directed (DME) wedge pillow See Rx Instructions .Route .MEDSUPPLY Qty: 1 0RF Rx Instructions: As directed Discharge Instructions Activity:: Activity as Tolerated Equipment/Supplies:: No Equipment Needed Diet:: As Tolerated Discharge Orders Discharge Orders: Discharge Order (Routine); Ordered 08/05/23 Ordered By: Michel Trivedi DS: Summary Time Spent with Patient providing and/or coordinating discharge services: Greater than 30 minutes Status at Discharge Functional status at discharge: independent ambulation Overall status at discharge: patient is back to baseline Mental Status: mental status grossly normal Speech and Movement: speech and movement normal Mood: congruent mood Affect: normal affect Quality:SDOH Health Related Social Needs: Health related social needs transpo insecurity Exam Narrative Exam Narrative: Chronically ill-appearing gentleman laying in bed in no acute distress, nonlabored breathing, is awake, alert, oritned to person and place and now appears to understand her current medical situation and that he is dying Psych Mental Status: mental status grossly normal Speech and Movement: speech and movement normal Mood: congruent mood Affect: normal affect DS: Data Vitals/I&O Vitals and I&O: Vital Signs Temperature 97.0 F L 08/01/23 09:00 Temperature Source Temporal Artery Scan 08/01/23 09:00 Pulse 69 08/01/23 13:42 Pulse 67 08/01/23 13:42 Respiratory Rate 16 08/01/23 13:42 Respiratory Effort Labored 08/01/23 09:00 Respiratory Depth Shallow 08/01/23 09:00 Respiratory Pattern Normal 08/01/23 09:00 Blood Pressure 84/58 L 08/01/23 13:42 Blood Pressure Mean 67 08/01/23 13:42 Blood Pressure Position Supine 08/01/23 04:41 Pulse Oximetry 96 08/01/23 13:42 Oxygen Delivery Method Nasal Cannula 08/01/23 04:41 Oxygen Flow Rate 1 08/01/23 04:41 Fraction of Inspired Oxygen (FIO2) 2 07/30/23 16:03 Pain Level 5 08/04/23 17:56 Arterial Systolic 95 07/25/23 19:00 Arterial Diastolic 47 07/25/23 19:00 Arterial Mean 64 07/25/23 19:00 Intake & Output 08/04/23 08/05/23 08/05/23 17:59 05:59 17:59 Intake Total 400 / 400 360 / 360 Output Total 325 / 325 250 / 250 Balance 75 / 75 110 / 110 Intake: Oral 400 / 400 360 / 360 Output: Urine 325 / 325 250 / 250 Other: Urine Color Burke Light Irma Urine Appearance Sediment Sediment Sediment PFSH All Active Problems (Updated 08/04/23 @ 20:47 by Ivanna Nunez NP) Palliative care encounter (Acute) Comfort measures only status (Acute) Severe swallowing dysfunction (Acute) Dysphagia (Acute) Hypoglycemia (Acute) Protein-calorie malnutrition, moderate (Acute) At high risk for skin breakdown (Acute) GI bleed (Chronic) COPD (chronic obstructive pulmonary disease) (Chronic) Stage IV pressure ulcer of right buttock (Acute) Sacral osteomyelitis (Acute) Hypomagnesemia (Acute) Anemia due to GI blood loss (Acute) Babinski reflex (Acute) Acute metabolic encephalopathy (Acute) Complicated UTI (urinary tract infection) (Acute) Abnormal urine color (Acute) Hyperkalemia (Acute) Acute on chronic kidney failure (Acute) HCAP (healthcare-associated pneumonia) (Acute) Atopic dermatitis (Acute) Pulmonary embolism (Chronic) Cellulitis (Acute) Cervical spondylosis without myelopathy (Acute) Perineal ulcer (Acute) Cervical spine arthritis (Acute) Cervical radicular pain (Acute) Viral conjunctivitis of both eyes (Acute) Hypoadrenergic postural hypotension (Acute) Dyspnea (Acute) Conductive hearing loss, bilateral (Acute) Chronic serous otitis media, bilateral (Acute) Recurrent serous otitis media of left ear (Acute) Intertrigo (Acute) Sensorineural hearing loss, bilateral (Acute) Conductive hearing loss in right ear (Acute) Chronic serous otitis media, right ear (Acute) Nasal vestibulitis (Acute) Mixed hearing loss, bilateral (Acute) Hearing deficit (Acute) Acute serous otitis media of right ear (Acute) Onychomycosis (Acute) Chronic Nephrotic syndrome (Acute) Pancreatic lesion (Acute) Hypoattenuation seen on CT 05/09 Fluid retention (Acute) Thrombosis of right saphenous vein (Acute) Left femoral vein DVT (Acute) Anxiety and depression (Chronic) Hypertrophic toenail (Acute) Cor pulmonale (chronic) (Chronic) Incontinence of bowel (Acute) Acute kidney injury (Acute ~09/28/19) due to methotrexate therapy Weakness of both lower extremities (Acute) Hyperuricemia (Acute) Paroxysmal A-fib (Acute) Dehydration (Acute) Limited code status (Acute) Pleural effusion (Acute) Abdominal lymphadenopathy (Acute) DVT (deep venous thrombosis) (Chronic) Mediastinal adenopathy (Acute) Lung mass (Acute) COPD exacerbation (Acute) Respiratory distress (Acute) Overgrown toenails (Acute) DJD (degenerative joint disease) (Chronic) Depressive disorder (Chronic) Crohn's disease (Chronic) Self Reported Venous stasis ulcer of ankle limited to breakdown of skin (Acute) Mitral regurgitation (Chronic) Lymphedema of both lower extremities (Chronic) Ischemic ulcer of right ankle, limited to breakdown of skin (Acute) Venous insufficiency of both lower extremities (Chronic) as above Left varicocele (Acute 05/09/17) Microscopic hematuria (Acute 02/03/16) Osteoarthritis of hip (Acute 12/14/12) Right hydrocele (Acute 02/04/17) Osteoarthritis of hip (Acute 01/14/14) Total hip arthroplasty by Dr. Jose Nieves 01/14/14; Ceramic head; press fit. Mitral valve prolapse (Chronic) Microscopic hematuria (Acute) Medical History Left leg weakness Hematoma Muscle weakness (generalized) Chronic kidney disease, stage 3 unspecified Urinary retention Suprapubic catheter Lymphoma 08/23/19 Aggressive B cell lymphoma [facility] Hem/Onc Venous stasis dermatitis of both lower extremities Pulmonary HTN Diastolic dysfunction Smoking greater than 40 pack years cont on smoking cessation 08/2019 quit smoking; quit 2019 Constipation Fall Hypotension Acute on chronic renal insufficiency Congestive heart disease (04/15/22) unspeciied HF chronicity, type Target weight 211# 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, high risk, B cell lymphoma, NOS, with extra node involvement(bone, spinal cord,pleura) 09/09/21 ([facility] HEM/ONC) PET CT: No Active Lymphoma (Deauville score 1) Anemia Emphysema lung Right femoral vein DVT Hypotension Venous stasis ulcer of right lower leg with edema of right lower leg Cellulitis of right leg Housing problems Tobacco use disorder Alcohol dependence in remission Anxiety 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 Ulcer of right lower extremity Gastroesophageal reflux disease Osteoarthritis Hypercholesterolemia BPH (benign prostatic hyperplasia) Surgical History Total replacement of hip bilateral Tonsillectomy and adenoidectomy Repair of umbilical hernia Repair of inguinal hernia Bilateral EGD - MAC Colonoscopy - MAC Cholecystectomy (11/01/17) Extraction of cataract Family History Mother Breast cancer Hypertension Anxiety Father CHF (congestive heart failure) Maternal Aunt Diabetes Social History Smoking/Tobacco Use Status: Former Tobacco Use Quit Date: 08/23/19 Tobacco: How many years used: 50 Quit status: quit date established Smoking risk assessment performed?: Yes Alcohol Intake: former Year quit: 2007 Drug use: Never Substance use type: does not use Adopted: No Caregiver/Support person: Yes Foster care: No Household members: other Details: Self Housing: apartment Number of Children: 0 number of grandchildren: 0 Communication Needs: None Education Level: vocational Do you need help understanding health information?: Often current occupation: Disabled Pets and animals: No Sexually active: No Do you think of yourself as: straight/heterosexual Current gender identity: male What is your relationship status?: How often do you talk on the phone with friends or family?: three or more times per week How often do you get together with friends or relatives?: decline to answer Do you belong to any clubs or organized social groups?: yes Panel score (0-1 are the most socially isolated patients): 2 What type of physical activity do you participate in: other Details: Stretching - ROM - arms and wheelchair-bound Duration: 15-30 minutes/day Frequency: 3-4 times per week Yakelin/Church: [employer] Special yakelin needs: No Seatbelt use: always Drive intox or ride w/intox commercial relief driver: No (Does not apply) Do you feel safe in your relationship?: Yes Additional Social history: unable to assess privately Time Spent with Patient Time Spent with Patient: <45 minutes Time was spent: preparing to see the patient(eg.review tests), obtaining and/or reviewing separately otained hiistory, ordering medications,tests, procedures, referring, communicating with other health caretaker resort, indepentently interpreting results, counseling the patient and care coordination
--- NOTE | 2023-08-05 13:22 | CMDISCH_ITS ---
Date of service: 08/05/23 Time of Service: 13:22 LACE Index Scoring Tool Questions: Length of Stay (in days): 14 or more Was the patient admitted via the E.D.?: Yes Comorbidities: Chronic Pulmonary Disease and Any Tumor E.D. Visits: 3 Answers: Total Score: 18 Risk of Readmission: High Risk Care Management Discharge Plan Reason for Hospitalization: sepsis Discharge Plan: Isra will return to [facility] today. He will transport via [facility], coordinated by [facility]. He will follow up with facility providers and his discharge plan of care. He is happy to be going back to [facility]. CM called his sister, Mariluz, and informed her of the transition, which she was in agreement with, and she will continue to work with the social security assessor at the facility to determine if he will be able to transfer to a facility that is more local to her home in [place]. Patient/Family Education Needs: Review discharge instructions and limitations, discussion of self care needs including ask me three and goals of care. Services Needed at Discharge: Nursing Home Facility ([facility]) and Transportation ([facility]) SDOH Health Related Social Needs: Health related social needs transpo insecurity Health related social needs: transportation insecurity(Z59.82)
== END 2023-08-05 13:47 | disposition skilled nursing facility (03) | DRG 853 ==
LOC: ER 13:20 → MS 15:18 → ICU 15:39 → MS 08-01 23:25
PROVIDERS: Family Medicine; Internal Medicine; Surgery; Admitting Provider Family Medicine; Emergency Provider Emergency Medicine Emergency Medical Services; PCP Family Medicine; Visit Provider Family Medicine
PROC: 0QB10ZZ Excision of Sacrum, Open Approach (ICD-10-PCS; CPT 11044; principal; 2023-07-25 09:15)
DX: A41.51 Sepsis due to Escherichia coli [E. coli] (principal); G93.41 Metabolic encephalopathy; R65.21 Severe sepsis with septic shock; N17.0 Acute kidney failure with tubular necrosis; L89.154 Pressure ulcer of sacral region, stage 4; J18.9 Pneumonia, unspecified organism; N39.0 Urinary tract infection, site not specified; M46.28 Osteomyelitis of vertebra, sacral and sacrococcygeal region; N04.9 Nephrotic syndrome with unspecified morphologic changes; L97.311 Non-pressure chronic ulcer of right ankle limited to breakdown of skin; E44.0 Moderate protein-calorie malnutrition; E27.40 Unspecified adrenocortical insufficiency; C85.10 Unspecified B-cell lymphoma, unspecified site; I50.30 Unspecified diastolic (congestive) heart failure; Z16.11 Resistance to penicillins; Z16.19 Resistance to other specified beta lactam antibiotics; G95.20 Unspecified cord compression; F05 Delirium due to known physiological condition; K92.1 Melena; E87.0 Hyperosmolality and hypernatremia; N18.30 Chronic kidney disease, stage 3 unspecified; E87.5 Hyperkalemia; B96.20 Unspecified Escherichia coli [E. coli] as the cause of diseases classified elsewhere; R29.2 Abnormal reflex; D50.0 Iron deficiency anemia secondary to blood loss (chronic); R73.9 Hyperglycemia, unspecified; E83.42 Hypomagnesemia; I48.0 Paroxysmal atrial fibrillation; I87.2 Venous insufficiency (chronic) (peripheral); R15.9 Full incontinence of feces; I89.0 Lymphedema, not elsewhere classified; I34.1 Nonrheumatic mitral (valve) prolapse; E78.00 Pure hypercholesterolemia, unspecified; I83.893 Varicose veins of bilateral lower extremities with other complications; K21.9 Gastro-esophageal reflux disease without esophagitis; N40.0 Benign prostatic hyperplasia without lower urinary tract symptoms; J43.2 Centrilobular emphysema; R13.10 Dysphagia, unspecified; F32.A Depression, unspecified; F41.9 Anxiety disorder, unspecified; M54.9 Dorsalgia, unspecified; Y84.2 Radiological procedure and radiotherapy as the cause of abnormal reaction of the patient, or of later complication, without mention of misadventure at the time of the procedure; Z93.51 Cutaneous-vesicostomy status; B96.5 Pseudomonas (aeruginosa) (mallei) (pseudomallei) as the cause of diseases classified elsewhere; B95.62 Methicillin resistant Staphylococcus aureus infection as the cause of diseases classified elsewhere; Z96.643 Presence of artificial hip joint, bilateral; Y95 Nosocomial condition; Z68.33 Body mass index [BMI] 33.0-33.9, adult; Z51.5 Encounter for palliative care; R29.818 Other symptoms and signs involving the nervous system; Z86.718 Personal history of other venous thrombosis and embolism; Z79.01 Long term (current) use of anticoagulants; I27.81 Cor pulmonale (chronic); Z99.3 Dependence on wheelchair
CPT/HCPCS: 11044; 36573; 00123; 36410; 36415; 36430; 36592; 70553; 72197; 76770; 76942; 77001; 80048; 80053; 80076; 82533; 82550; 82805; 83935; 84145; 85027; 86039; 86850; 86900; 86901; 86920; 87040; 87077; 87206; 87389; 87641; 92610; 93005; 93308; 94640; 95816; 96361; 96365; 96367; 99223; 99231; 99232; 99291; J1650; 70450; 71045; 72156; 72157; 80202; 81003; 81015; 82040; 82140; 82247; 82565; 82607; 82728; 82746; 83036; 83540; 83550; 83605; 83735; 83930; 84075; 84132; 84155; 84300; 84443; 84450; 84460; 84466; 84484; 85014; 85018; 85025; 85610; 85730; 86140; 86592; 87070; 87075; 87086; 87186; 87205; 93010; 94664; 99233; 99238; J0131; J0457; J0613; J0692; J0780; J0834; J0878; J1200; J1205; J1596; J1630; J1720; J1815; J1836; J1940; J1941; J2001; J2003; J2060; J2270; J2359; J2405; J2470; J2543; J2598; J2704; J3372; J3475; J3480; J7060; P9016; P9047

== ENCOUNTER → 2023-07-27 10:13 | Outpatient (BNVA) | payer MEDICARE, MEDICAID, SELFPAY | PROVIDERS: PCP Family Medicine; Referring Provider Family Medicine; Visit Provider Psychiatry & Neurology Neurology ==

== ENCOUNTER → 2023-08-01 08:00 | Outpatient (BNVA) | payer MEDICARE, MEDICAID, SELFPAY | PROVIDERS: PCP Family Medicine; Referring Provider Family Medicine; Visit Provider Psychiatry & Neurology Neurology ==

== ENCOUNTER → 2023-08-08 07:51 | Outpatient (BNVA) | payer MEDICARE, MEDICAID, SELFPAY | PROVIDERS: PCP Family Medicine; Referring Provider Family Medicine; Visit Provider Psychiatry & Neurology Neurology ==